=== PATIENT | male | born 1935 | race Caucasian/White ===

== ENCOUNTER → 2016-04-21 | Outpatient (REF) | payer MEDICARE, BC ==
[~2016-04-21] MED LIST: /DOXE100CA PO; ACET-653 PO; ACET500C PO; ADVA115A INH; ADVIR INH; AMLO-59 PO; AMLO10TA OR; AMLO10TA2 PO; AMLO5TAB2 PO; APRESOLINE PO; ATOR1TAB21 PO; AUGM500T34 PO; AVEL1TAB PO; BACITAB3 PO; BENA25TA4 PO; BISO10TA2 OR; BISO5TAB5 PO; BREO1INH3 INH; BUDE3CAP PO; CEFT500T3 PO; CELE20TA OR; CIPR500T4 OR; CLOP75TA2 PO; CODE30TA3 PO; DIPH25CA PO; DIPH50CA PO; DOXE50CA PO; DUONSOL NEB; ECOT81TA PO; FLON1SPR; HYDR-4266 PO; HYDR-4267 PO; HYDR1CR TOP; HYDR50TA8 OR; INCR1INH INH; INFL10VL IV; INSUDET SC; IPRASOL4 INH; LEVA250T PO; LUNE2TAB OR; LUNE3TAB48 PO; MIRA255PW PO; MIRA33504 PO; MUCI600T34 PO; OMEP40CA2 PO; PENTASA PO; PLAVIX PO; POLY33502 PO; POTA20TA OR; PRED10PA PO; PRED1TABL PO; PRED20TA PO; PRED20TAB PO; PRIL40CA OR; PROT1TAB2 PO; PULM1SUS INH; Probiotic PO; RAMI2.5C PO; ROZE8TAB9 PO; SENO8.6T10 PO; SIMV20TA2 OR; SPIR25TA2 PO; SPIRIVA INH; TOBROPO OD; TYLE500T53 OR; VENTAER IN; VENTAER INH; VICO5TAB PO; VITMTA PO; ZOLO50TA PO; [UNRECOGNIZED DRUG - CODE] TOP
[2016-04-21 12:25] LABS: CALCIUM LEVEL 9.1 MG/DL (8.8-10.2); CREATININE FOR GFR 1.33 MG/DL (0.70-1.30); GLOMERULAR FILTRATION RATE 55.4 (>42); POTASSIUM SERUM 3.7 MEQ/L (3.5-5.1)
== END ==
LOC: M SFHCCLAY 08:28
PROVIDERS: ATTEND Family Medicine
DX: I10 Essential (primary) hypertension (principal); E78.00 Pure hypercholesterolemia, unspecified; I25.10 Atherosclerotic heart disease of native coronary artery without angina pectoris

== ENCOUNTER → 2016-09-10 | Outpatient (CLI) | payer MEDICARE, BC ==
[~2016-09-10] MED LIST changes: +E-Z-PAQUE 96% w/w SUSP 176GM BTL As Ordered ONE
--- NOTE | 2016-09-10 16:55 | REP ---
SMALL BOWEL FOLLOW-THROUGH: The procedure was performed under the direct supervision of Dr. Young. The images were reviewed with Dr. Young. The customer care assistant film shows no organomegaly or pathological masses. The intestinal gas pattern is nonspecific. There are vascular calcifications identified. Liquid barium was administered and the barium column was followed through the small bowel to the level of the terminal ileum. Small bowel transit time is approximately 65 minutes. There are thickened post-bulbar duodenal folds. This may represent duodenitis. In the terminal ileum there is eccentric mucosal thickening. The terminal ileum appears to stand alone. These findings may represent Crohn's disease. The remainder of the small is unremarkable. IMPRESSION: There are thickened post-bulbar duodenal folds which may represent duodenitis. In the terminal ileum there is eccentric mucosal thickening. The terminal ileum stands alone. These findings may represent Crohn's disease. 2 minutes and 30 seconds of fluoroscopy time was utilized for this procedure. Reviewed by DANIELA Malhotra 09/13/2016 05:03 PEdited and Signed by Tristen Young MD 09/13/2016 06:53 P
== END ==
LOC: M RAD 08:58
PROVIDERS: ATTEND Internal Medicine Gastroenterology
DX: K50.00 Crohn's disease of small intestine without complications (principal)

== ENCOUNTER → 2016-10-26 | Outpatient (REF) | payer MEDICARE, BC ==
[~2016-10-26] MED LIST changes: +AMLO-140 PO; -AMLO-59 PO; -AVEL1TAB PO; +AVEL1TAB3 PO; +BACITAB PO; -BACITAB3 PO; +CENTTAB36 PO; -E-Z-PAQUE 96% w/w SUSP 176GM BTL As Ordered ONE; +HYDR-3910 PO; +HYDR-3911 PO; -HYDR-4266 PO; -HYDR-4267 PO; +INSULADS INJ; +LEVA1TAB PO; -LEVA250T PO; +LUNE3TAB36 PO; -LUNE3TAB48 PO; -MUCI600T34 PO; +MUCI600T37 PO; +NORV5TAB PO; +POTA10PO PO; +PROBCAP4 PO; +REPA1TAB4 PO; +ROZE8TAB16 PO; -ROZE8TAB9 PO; +TRAD5TAB PO
[2016-10-26 18:13] LABS: ALBUMIN 3.9 GM/DL (3.2-5.2); ALBUMIN/GLOBULIN RATIO 1.22 (1.00-1.93); BILIRUBIN,TOTAL 1.2 MG/DL (0.2-1.0); CALCIUM LEVEL 9.2 MG/DL (8.8-10.2); CREATININE FOR GFR 1.5 MG/DL (0.70-1.30); GLOMERULAR FILTRATION RATE 48.2 (>42); POTASSIUM SERUM 3.7 MEQ/L (3.5-5.1); TOTAL PROTEIN 7.1 GM/DL (6.4-8.2)
== END ==
LOC: M SFHCCLAY 09:36
PROVIDERS: ATTEND Nurse Practitioner
DX: I50.9 Heart failure, unspecified (principal); E11.9 Type 2 diabetes mellitus without complications
CPT/HCPCS: 80053; 80061; 83036; 83880; G0463

== ENCOUNTER 2016-11-10 15:57 | Emergency (ER) | payer MEDICARE, BC ==
[~2016-11-10] VITALS: Ht 180.3 cm; Wt 78.6 kg
[~2016-11-10 15:57] MED LIST changes: -CENTTAB36 PO; -INSULADS INJ; -NORV5TAB PO; -POTA10PO PO; -PROBCAP4 PO; -REPA1TAB4 PO; -TRAD5TAB PO
[2016-11-10] MEDS ORDERED: ACET-653 PO (16:15)
[2016-11-10] MEDS ORDERED: NORV5TAB PO (16:15)
[2016-11-10] MEDS ORDERED: BREO1INH3 INH (16:15)
[2016-11-10] MEDS ORDERED: PROBCAP4 PO (16:15)
[2016-11-10] MEDS ORDERED: CENTTAB36 PO (16:15)
[2016-11-10] MEDS ORDERED: INSULADS INJ (16:15)
[2016-11-10] MEDS ORDERED: POTA10PO PO (16:21)
[2016-11-10] MEDS ORDERED: REPA1TAB4 PO (16:21)
[2016-11-10] MEDS ORDERED: TRAD5TAB PO (16:21)
[2016-11-10 17:19] VITALS: BP 148/80
== END 2016-11-10 17:20 | disposition home or self-care (01) ==
LOC: M ED 15:57
DX: H11.32 Conjunctival hemorrhage, left eye (principal); I25.10 Atherosclerotic heart disease of native coronary artery without angina pectoris; I25.2 Old myocardial infarction; I12.9 Hypertensive chronic kidney disease with stage 1 through stage 4 chronic kidney disease, or unspecified chronic kidney disease; N18.9 Chronic kidney disease, unspecified; E11.9 Type 2 diabetes mellitus without complications; Z98.61 Coronary angioplasty status; Z79.02 Long term (current) use of antithrombotics/antiplatelets

== ENCOUNTER → 2016-11-25 | Outpatient (CLI) | payer MEDICARE, BC ==
[~2016-11-25] MED LIST changes: +CENTTAB36 PO; +INSULADS INJ; +NORV5TAB PO; +POTA10PO PO; +PROBCAP4 PO; +REPA1TAB4 PO; +TRAD5TAB PO
--- NOTE | 2016-11-25 14:07 | REP ---
KUB, TWO VIEWS: HISTORY: Fecal impaction. A small amount of air is present in small and large intestine. There are no air fluid levels or dilated loops of intestine. There is no pneumoperitoneum. A moderate amount of stool is present in the colon. IMPRESSION: 1. Nonspecific bowel gas pattern. 2. There is a moderate amount of stool in the colon.
== END ==
LOC: M CLY 13:11
PROVIDERS: ATTEND Internal Medicine Gastroenterology
DX: K56.41 Fecal impaction (principal)

== ENCOUNTER → 2017-02-23 | Outpatient (REF) | payer MEDICARE, BC | LOC: M LAB REF 15:13 | PROVIDERS: ATTEND Nurse Practitioner Family | DX: L08.9 Local infection of the skin and subcutaneous tissue, unspecified (principal) ==

== ENCOUNTER → 2017-11-07 | Outpatient (REF) | payer MEDICARE, BC ==
[2017-11-07 18:01] LABS: ALBUMIN 3.7 GM/DL (3.2-5.2); ANION GAP 10 MEQ/L (8-16); BLOOD UREA NITROGEN 27 MG/DL (7-18); CALCIUM LEVEL 9.8 MG/DL (8.8-10.2); CARBON DIOXIDE LEVEL 23 MEQ/L (21-32); CHLORIDE LEVEL 107 MEQ/L (98-107); GLOMERULAR FILTRATION RATE 36.5 (>35); GLUCOSE, FASTING 171 MG/DL (70-100); PHOSPHORUS LEVEL 3.3 MG/DL (2.5-4.9); POTASSIUM SERUM 4.5 MEQ/L (3.5-5.1); SODIUM LEVEL 140 MEQ/L (136-145)
== END ==
LOC: M SFHCCLAY 12:18
DX: N18.3 Chronic kidney disease, stage 3 (moderate) (principal)
CPT/HCPCS: 80069

== ENCOUNTER → 2018-02-21 | Outpatient (CLI) | payer MEDICARE, BC | LOC: M SMT 12:13 | DX: R05 Cough (principal); I77.1 Stricture of artery | CPT/HCPCS: 71046 ==

== ENCOUNTER → 2018-07-28 | Outpatient (REF) | payer MEDICARE, BC ==
[~2018-07-28] MED LIST changes: -/DOXE100CA PO; +ACET300T47 PO; -AMLO5TAB2 PO; +AMLO5TAB6 PO; -CODE30TA3 PO; +DOXE1CAP8 PO; -HYDR1CR TOP; +HYDR1CRE93 TOP; +IPRA0.00 INH; -IPRASOL4 INH; -LEVA1TAB PO; +LEVA250T13 PO; -MIRA255PW PO; +POLY1POW38 PO; +POLY1POW4 PO; -POLY33502 PO; +SPIR-10 PO; -SPIR25TA2 PO
== END ==
LOC: M SFHCCLAY 14:04
PROVIDERS: ATTEND Family Medicine
DX: K50.10 Crohn's disease of large intestine without complications (principal); Z78.9 Other specified health status

== ENCOUNTER → 2018-07-31 | Outpatient (REF) | payer MEDICARE, BC | LOC: M SFHCCLAY 13:35 | PROVIDERS: ATTEND Family Medicine | DX: Z78.9 Other specified health status (principal) ==

== ENCOUNTER → 2018-08-04 | Outpatient (CLI) | payer MEDICARE, BC ==
[~2018-08-04] MED LIST changes: +GASTROGRAFIN SOLUTION 30ML (Q9963) As Ordered ONE
--- NOTE | 2018-08-04 17:22 | REP ---
HISTORY: Crohn's disease. COMPARISON: 02/24/2012, also without contrast. The lack of intravenous contrast decreases the sensitivity of the exam. There are chronic lung base changes, status quo. There are no pleural or pericardial effusions. There are gravel-like choleliths which represent a change from the prior exam. Limited evaluation of the liver and spleen show no gross abnormalities. Portal venous gas seen previously has abated. The pancreas, adrenal glands and kidneys are unchanged. Multiple left renal cysts of various sizes and densities are seen, status quo. The hyperdense cyst seen arising from the interpolar region of the left kidney projecting posteriorly has, however, increased in size. Its density is unchanged. It is assessed only in a limited fashion on this noncontrast enhanced exam. The abdominal aorta and periaortic regions are essentially unchanged. Calcific atherosclerotic change is again seen in the abdominal aorta and iliac arteries with bilateral common iliac arterial ectasia, status quo. There is no intra-abdominal mass or adenopathy. There is no free fluid or free air. The bowel loops and their mesenteries are within normal limits. There is no evidence of abnormal bowel wall thickening. CT PELVIS: The bowel loops and their mesenteries are within normal limits. There is colonic diverticulosis. There is no free fluid or free air. There is no pelvic mass or adenopathy. There is corpora amylacea. Bone window technique throughout the exam shows chronic degenerative changes, status quo. IMPRESSION: Chronic changes as described above. There is no evidence of acute intraabdominal or intrapelvic disease. Consider contrast enhanced examination for further evaluation of the left renal cyst. Electronically Signed by [place] DO 08/07/2018 09:48 A
== END ==
LOC: M RAD 13:45
PROVIDERS: ATTEND Family Medicine
DX: N28.1 Cyst of kidney, acquired (principal)
CPT/HCPCS: 74176; Q9963

== ENCOUNTER → 2018-08-23 | Outpatient (CLI) | payer MEDICARE, BC ==
[~2018-08-23] MED LIST changes: -GASTROGRAFIN SOLUTION 30ML (Q9963) As Ordered ONE; +ISOVUE-370 76% 100ML VIAL (Q9967) As Ordered ONE
--- NOTE | 2018-08-23 15:11 | REP ---
Clinical: Renal cyst. Comparison: 19. Technique: Axial contrast enhanced images of the abdomen and pelvis using 75 ml Isovue 370 intravenous contrast material with precontrast, arterial phase, and delayed phase images of the abdomen. Coronal and sagittal re-formations obtained. Findings: Evaluation of the urinary tract system demonstrates few small bilateral nonobstructing calculi 2 mm in the right kidney and 3 mm in left kidney. Few small simple right renal cysts are identified measuring up to 1.8 cm while at least 15 simple and complex benign cysts are identified involving the left kidney measuring up to 5.0 cm. No acute perinephric stranding or hydroureteronephrosis. Bilateral ureters and bladder appear normal. Prostate gland is mildly enlarged and demonstrates parenchymal calcifications. Liver, spleen, atrophic pancreas, and bilateral adrenal glands are normal. Very minimal amount of layering gravel noted in the gallbladder without acute cholecystitis. The enteric system is without obstruction or acute inflammatory process. Scattered colonic and sigmoid diverticulosis noted without acute diverticulitis. Pelvis demonstrates relatively normal bladder with mildly enlarged prostate gland having parenchymal calcifications. Atherosclerotic changes to the aorta and vasculature without aneurysm. Musculoskeletal structures demonstrate degenerative changes without focal osseous abnormality. Impression: 1. Bilateral simple and complex renal cysts (left greater than right) along with few scattered small bilateral nonobstructing intrarenal calculi. 2. Cholelithiasis. 3. Few scattered sigmoid diverticula without acute diverticulitis. 4. Atherosclerotic disease. 5. Enlarged prostate gland with parenchymal calcifications. Electronically Signed by Manuel Sung MD 08/23/2018 03:02 P
== END ==
LOC: M RAD 09:52
PROVIDERS: ATTEND Urology
DX: N28.1 Cyst of kidney, acquired (principal); K80.20 Calculus of gallbladder without cholecystitis without obstruction; I25.9 Chronic ischemic heart disease, unspecified; N40.0 Benign prostatic hyperplasia without lower urinary tract symptoms
CPT/HCPCS: 74178; Q9967

== ENCOUNTER → 2019-02-08 | Outpatient (REF) | payer MEDICARE, BC ==
[~2019-02-08] MED LIST changes: -BISO5TAB5 PO; +BISO5TAB9 PO; -DIPH25CA PO; +DIPH25CA32 PO; -ISOVUE-370 76% 100ML VIAL (Q9967) As Ordered ONE
[2019-02-08 17:29] LABS: ALBUMIN 3.8 GM/DL (3.2-5.2); BILIRUBIN,TOTAL 1.4 MG/DL (0.2-1.0); CALCIUM LEVEL 9.8 MG/DL (8.8-10.2); CHOLESTEROL RISK RATIO 3.509 (<5); CREATININE FOR GFR 1.85 MG/DL (0.70-1.30); GLOMERULAR FILTRATION RATE 37.5 (>35); POTASSIUM SERUM 4.6 MEQ/L (3.5-5.1); TOTAL PROTEIN 6.4 GM/DL (6.4-8.2)
[2019-02-12 13:33] LABS: MAU/CREAT RATIO 27.6 MCG/MG (0.0-30.0)
== END ==
LOC: M LABDRAWC 16:14
PROVIDERS: ATTEND Nurse Practitioner Family
DX: E11.22 Type 2 diabetes mellitus with diabetic chronic kidney disease (principal); E78.00 Pure hypercholesterolemia, unspecified

== ENCOUNTER → 2019-04-25 | Outpatient (CLI) | payer MEDICARE, BC ==
[~2019-04-25] MED LIST changes: +BISO5TAB14 PO; -BISO5TAB9 PO
--- NOTE | 2019-04-25 14:19 | REP ---
Right knee five views : There is no fracture or dislocation. Mineralization and joint spaces are normal. There are no calcifications or foreign bodies. There is no effusion. There is calcified vascular atheroma in the popliteal artery. Impression: Essentially negative right knee . Electronically Signed by Earnest Bowser MD 04/25/2019 02:11 P
== END ==
LOC: M CLY 13:09
PROVIDERS: ATTEND Family Medicine
DX: M25.561 Pain in right knee (principal); N18.3 Chronic kidney disease, stage 3 (moderate); R35.0 Frequency of micturition; R25.1 Tremor, unspecified
CPT/HCPCS: 73564; 80048; 81015; 82390; 84439; 84443; 84481; 87086; G0463

== ENCOUNTER → 2019-04-25 | Outpatient (REF) | payer MEDICARE, BC ==
[2019-04-25 16:46] LABS: BACTERIA, URINE AUTO NEGATIVE (NEGATIVE); MUCUS, URINE SMALL (NEGATIVE); RBC, URINE AUTO 1 /HPF (0-3); SQUAMOUS EPITHELIAL CELL UR AU 1 /HPF (0-6); TRANSITIONAL EPITHELIAL AUTO <1 /HPF; WBC, URINE AUTO 6 /HPF (0-3)
[2019-04-25 17:03] LABS: CREATININE FOR GFR 1.63 MG/DL (0.70-1.30); FREE T3 2.2 PG/ML (2.2-4.0); FREE T4 1.03 NG/DL (0.76-1.46); GLOMERULAR FILTRATION RATE 43.4 (>35); POTASSIUM SERUM 4.2 MEQ/L (3.5-5.1); THYROID STIMULATING HORMONE 1.53 uIU/ML (0.358-3.740)
== END ==
LOC: M LABSMT 11:26
PROVIDERS: ATTEND Specialist
DX: N18.3 Chronic kidney disease, stage 3 (moderate) (principal); R35.0 Frequency of micturition; R25.1 Tremor, unspecified

== ENCOUNTER → 2019-04-26 | Outpatient (CLI) | payer MEDICARE, BC ==
--- NOTE | 2019-04-26 15:04 | REP ---
Renal ultrasound for stage III chronic renal disease. Comparison is 11/07/2015. The right kidney measures 9.0 x 4.8 x 4.7 cm. Left kidney measures 8.6 x 5.8 x 4.4 cm. Both kidneys are atrophic size and are slightly smaller than on the comparison study. Renal cortical echogenicity is increased bilaterally compatible with chronic medical renal disease. There is no hydronephrosis on the right on the left. There are no renal calculi on the left on the right. There are no solid masses on the left on the right. There are too small right renal cysts at the lower pole, one posteriorly measuring 0.8 cm and the other at the lower pole inferiorly measuring 1.0 cm. There are innumerable left renal cysts,, increased in number from the prior study, compatible with chronic renal disease. The largest left renal cyst measures 4.3 cm. The Bladder: No bladder wall nodules or masses are identified. Impression: The kidneys are atrophic size bilaterally. There are bilateral renal cysts as described. There are no renal calculi. There is no hydronephrosis. No solid renal masses. Electronically Signed by Earnest Bowser MD 04/26/2019 02:56 P
== END ==
LOC: M RAD 12:55
PROVIDERS: ATTEND Specialist
DX: Q61.02 Congenital multiple renal cysts (principal); N18.3 Chronic kidney disease, stage 3 (moderate)

== ENCOUNTER → 2019-04-26 | Outpatient (CLI) | payer MEDICARE, BC ==
--- NOTE | 2019-04-26 15:20 | REP ---
Bilateral lower extremity arterial duplex ultrasound: Right upper extremity: Brachial artery peak systole: 122 mmHg. Dorsalis pedis peak systole: 132 mmHg. MEDICAL ADVISOR peak systole: 128 mmHg. TONO: 1.1. Peak Systolic Phasicity Velocity SLEEPER CUTTER 88.5 triphasic Profunda 92.4 triphasic SFA prox 55.9 triphasic SFA mid 95.9 triphasic SFA dist 45 triphasic Pop 37.8 biphasic MARIAH prox 50.8 biphasic Tib/P tr 42.8 triphasic MEDICAL ADVISOR pr 51.7 monophasic MEDICAL ADVISOR dst 50.4 monophasic MARIAH dst 33.0 monophasic Left lower extremity: Brachial peak systole: 120 mmHg. Dorsalis pedis peak systole: 140 mmHg. MEDICAL ADVISOR peak systole: 122 mmHg. TONO: 1.1. Peak Systolic Phasicity Velocity SLEEPER CUTTER 104 biphasic Profunda 102 monophasic SFA prox 50.2 triphasic SFA mid 112 triphasic SFA dist 68.7 triphasic Pop 134.0 triphasic MARIAH prox 235 monophasic Tib/P tr 44.7 triphasic MEDICAL ADVISOR pr 41.7 monophasic MEDICAL ADVISOR dst 41.1 monophasic MARIAH dst 48.6 monophasic The there is moderate atheromatous plaque bilaterally. Right: The distal SFA demonstrates 5:1 stenosis. There is monophasic flow in the proximal and distal MEDICAL ADVISOR and in the distal MARIAH. Left: There are patent stents in the mid and distal SFA. There is 2:1 stenosis in the popliteal and proximal MEDICAL ADVISOR. There is monophasic flow in the proximal and distal MEDICAL ADVISOR and the distal MARIAH. Electronically Signed by Earnest Bowser MD 04/26/2019 03:12 P
== END ==
LOC: M RAD 12:49
PROVIDERS: ATTEND Surgery
DX: I73.9 Peripheral vascular disease, unspecified (principal); Q61.02 Congenital multiple renal cysts; N18.3 Chronic kidney disease, stage 3 (moderate)

== ENCOUNTER → 2019-05-03 | Outpatient (REF) | payer MEDICARE, BC ==
[2019-05-03 20:55] LABS: BACTERIA, URINE AUTO NEGATIVE (NEGATIVE); RBC, URINE AUTO 2 /HPF (0-3); SQUAMOUS EPITHELIAL CELL UR AU 0 /HPF (0-6); WBC, URINE AUTO 0 /HPF (0-3)
== END ==
LOC: M SMT 17:22
PROVIDERS: ATTEND Specialist
DX: R82.81 Pyuria (principal); R35.0 Frequency of micturition

== ENCOUNTER → 2019-07-12 | Outpatient (CLI) | payer MEDICARE, BC ==
--- NOTE | 2019-07-12 17:59 | REP ---
Lumbar spine series: Five views. History: Right lower back pain. Findings: Coronary artery stent material is visible. Vascular calcification is present. There is mild gaseous distension of the transverse colon. Air and stool is seen in the ascending and descending colon. Lumbar vertebral body heights are preserved. Alignment is normal. There is no evidence of spondylolysis or spondylolisthesis. There is degenerative disc disease with narrowing and anterior osteophyte formation at L4-5, L3-4, and L2-3. There is a Schmorl's node in the superior endplate of L3. No bony destructive lesion is seen. Psoas margins are symmetric. Sacrum and SI joints are unremarkable. Impression Degenerative spondylosis changes. Vascular calcification. No acute bony abnormality. Electronically Signed by Tristen Young MD 07/12/2019 07:18 P
== END ==
LOC: M CLY 14:40
PROVIDERS: ATTEND Physician Assistant
DX: M51.36 Other intervertebral disc degeneration, lumbar region (principal); M54.5 Low back pain
CPT/HCPCS: 72110; G0463

== ENCOUNTER → 2019-09-13 | Outpatient (REF) | payer MEDICARE, BC ==
[~2019-09-13] MED LIST changes: +ALLO100T PO; +BELS1TAB2 PO; +COLA100C5 PO; +FLAG500T PO; +LANTINJ4 SC; +MIRA3350 PO; +RA M1.74 PO; +SITA50TAB PO
== END ==
LOC: M LAB REF 10:38
PROVIDERS: ATTEND Dermatology
DX: C44.310 Basal cell carcinoma of skin of unspecified parts of face (principal); L90.5 Scar conditions and fibrosis of skin

== ENCOUNTER → 2019-09-25 | Outpatient (REF) | payer MEDICARE, BC ==
[2019-09-25 16:30] LABS: CHOLESTEROL RISK RATIO 3.254 (<5); FREE T4 1.03 NG/DL (0.76-1.46); THYROID STIMULATING HORMONE 1.41 uIU/ML (0.358-3.740)
== END ==
LOC: M SFHCCLAY 11:31
PROVIDERS: ATTEND Family Medicine
DX: E11.9 Type 2 diabetes mellitus without complications (principal)

== ENCOUNTER 2019-09-29 13:55 | Emergency (ER) | payer MEDICARE, BC ==
[~2019-09-29] VITALS: Ht 180.3 cm; Wt 83.3 kg
[~2019-09-29 13:55] MED LIST changes: -ALLO100T PO; -BELS1TAB2 PO; -COLA100C5 PO; -FLAG500T PO; -LANTINJ4 SC; -MIRA3350 PO; -RA M1.74 PO; -SITA50TAB PO
[2019-09-29 13:56] VITALS: BP 143/71
[2019-09-29 14:45] LABS: BASO % 0.2 % (0.0-1.0); EOS # 0.1 10^3/uL (0.0-0.5); EOS % 0.9 % (0.0-3.0); HEMATOCRIT 40.4 % (42.0-52.0); HEMOGLOBIN 13.6 g/dl (13.5-17.5); LYMPH # 1.5 10^3/uL (1.5-5.0); LYMPH % 10.5 % (24.0-44.0); MEAN CORPUSCULAR HEMOGLOBIN 33.1 pg (27.0-33.0); MEAN CORPUSCULAR HGB CONC 33.7 g/dl (32.0-36.5); MEAN CORPUSCULAR VOLUME 98.3 fl (80.0-96.0); MONO # 1.4 10^3/uL (0.0-0.8); MONO % 9.9 % (0.0-5.0); NEUTROPHILS # 10.9 10^3/uL (1.5-8.5); NEUTROPHILS % 77.4 % (36.0-66.0); PLATELET COUNT, AUTOMATED 238 10^3/uL (150-450); RED BLOOD COUNT 4.11 10^6/uL (4.30-6.10); WHITE BLOOD COUNT 14.1 10^3/uL (4.0-10.0)
[2019-09-29] MEDS ORDERED: ISOVUE-370 76% 100ML VIAL As Ordered ONE (15:04)
[2019-09-29 15:13] LABS: ALBUMIN 3.9 GM/DL (3.2-5.2); BILIRUBIN,DIRECT 0.3 MG/DL (0.0-0.2); BILIRUBIN,TOTAL 1.7 MG/DL (0.2-1.0); TOTAL PROTEIN 6.8 GM/DL (6.4-8.2)
[2019-09-29] MEDS ORDERED: NS 1,000 ML IV ONE (15:30)
--- NOTE | 2019-09-29 15:47 | REP ---
Clinical: Lower abdominal pain. Constipation. Technique: Axial contrast enhanced images from the lung bases to the pubic symphysis using 100 ml Isovue 370 intravenous contrast material with coronal and sagittal re-formations. Comparison: 08/23/2018. Findings: Constipation and fecal impaction at the rectum which is distended to approximately 8.2 cm diameter noted along with fluid-filled loops of small large bowel raising the possibility of associated enterocolitis. Scattered colonic diverticula noted without acute diverticulitis. Liver, spleen, pancreas, and bilateral adrenal glands are normal. The kidneys demonstrate stable cysts and 3 mm nonobstructing left renal calculus. No acute perinephric stranding or hydroureteronephrosis. Cholelithiasis noted without acute cholecystitis. Pelvis demonstrates Clark catheter in collapsed bladder and coarse prostatic calcifications. Atherosclerotic changes to the aorta and vasculature noted without aneurysm or dissection. No ascites. No free air. No adenopathy. Musculoskeletal structures demonstrate age-related degenerative changes. Lung bases demonstrate chronic changes without acute process. Impression: 1. Constipation with fecal impaction at the rectum distended to 8.2 cm. 2. Possible mild enterocolitis. 3. Cholelithiasis. 4. Chronic renal cysts and 3 mm nonobstructing left renal calculus. Electronically Signed by Manuel Sung MD 09/29/2019 03:38 P
[2019-09-29] MEDS ORDERED: FLEET OIL RETENTION ENEMA PR ONE (16:15)
[2019-09-29] MEDS ORDERED: LANTINJ4 SC (16:26)
[2019-09-29] MEDS ORDERED: ALLO100T PO (16:26)
[2019-09-29] MEDS ORDERED: SPIR-10 PO (16:26)
[2019-09-29] MEDS ORDERED: SITA50TAB PO (16:26)
[2019-09-29] MEDS ORDERED: BELS1TAB2 PO (16:26)
[2019-09-29] MEDS ORDERED: MIRA3350 PO (18:21)
[2019-09-29] MEDS ORDERED: RA M1.74 PO (18:21)
[2019-09-29] MEDS ORDERED: FLAG500T PO (18:21)
[2019-09-29] MEDS ORDERED: COLA100C5 PO (18:21)
== END 2019-09-29 19:30 | disposition home or self-care (01) ==
LOC: M ED 13:55
DX: K52.9 Noninfective gastroenteritis and colitis, unspecified (principal); K59.00 Constipation, unspecified; K56.49 Other impaction of intestine; E11.9 Type 2 diabetes mellitus without complications; I10 Essential (primary) hypertension; N18.9 Chronic kidney disease, unspecified; I50.9 Heart failure, unspecified; E78.5 Hyperlipidemia, unspecified; F41.9 Anxiety disorder, unspecified; K21.9 Gastro-esophageal reflux disease without esophagitis; K50.90 Crohn's disease, unspecified, without complications; Z95.5 Presence of coronary angioplasty implant and graft; Z79.01 Long term (current) use of anticoagulants; Z88.1 Allergy status to other antibiotic agents
CPT/HCPCS: 51702; 74177; 80047; 80076; 81001; 83690; 85025; 96360; 96361; 99284; Q9967

== ENCOUNTER → 2019-10-02 | Outpatient (CLI) | payer MEDICARE, BC ==
[~2019-10-02] MED LIST changes: +ALLO100T PO; +BELS1TAB2 PO; +COLA100C5 PO; +FLAG500T PO; +LANTINJ4 SC; +MIRA3350 PO; +RA M1.74 PO; +SITA50TAB PO
--- NOTE | 2019-10-02 14:29 | REP ---
THREE-PHASE BONE SCAN: HISTORY: Rule out compression fracture. Comparison lumbar spine radiographs July 12, 2019. Comparison CT study September 21 10/22/2019. TECHNIQUE: 21.4 mCi technetium 99m MDP is injected and standard three-phase imaging is acquired focused on the mid lumbar spine. SCINTIGRAPHIC FINDINGS: Anterior and posterior flow study is normal. Blood pool images demonstrate slightly increased uptake in the mid lumbar spine and horizontal distribution. Delayed scan images demonstrate a horizontal band-like area of increased uptake in the mid lumbar spine most pronounced on the posterior views along the superior endplate of the L3 vertebral body. This aligns with the collapse of the superior end plate seen on sagittal and coronal multiplanar re-formation images from CT study September 29, 2019. The scintigraphic findings are compatible with an acute or subacute osteoporotic compression fracture deformity. There is also a focus of increased uptake in the right posterior 11th rib consistent with healing right posterior 11th rib fracture. There is mild degenerative uptake at the T11-12 level. IMPRESSION: Findings consistent with acute/subacute wedge compression deformities superior endplate of L3. Healing right posterior 11th rib fracture. Electronically Signed by Tristen Young MD 10/02/2019 04:02 P
== END ==
LOC: M RAD 09:43
PROVIDERS: ATTEND Orthopaedic Surgery
DX: R93.7 Abnormal findings on diagnostic imaging of other parts of musculoskeletal system (principal); M54.5 Low back pain
CPT/HCPCS: 78315; A9503

== ENCOUNTER → 2019-10-09 | Outpatient (REF) | payer MEDICARE, BC ==
[~2019-10-09] MED LIST changes: +AMLO1TAB24 PO; -AMLO5TAB6 PO
[2019-10-10 12:36] LABS: HEMATOCRIT 38.4 % (42.0-52.0); HEMOGLOBIN 12.6 g/dl (13.5-17.5); MEAN CORPUSCULAR HEMOGLOBIN 32.5 pg (27.0-33.0); MEAN CORPUSCULAR HGB CONC 32.8 g/dl (32.0-36.5); PLATELET COUNT, AUTOMATED 277 10^3/uL (150-450); RED BLOOD COUNT 3.88 10^6/uL (4.30-6.10); WHITE BLOOD COUNT 9.3 10^3/uL (4.0-10.0)
[2019-10-10 12:38] LABS: C REACTIVE PROTEIN QUANTITATIV 1.03 MG/DL (0.00-0.30)
[2019-10-10 13:55] LABS: LYMPHOCYTES 13 % (16-44); MONOCYTES 4 % (0-5); NEUTROPHILS 83 % (28-66); PLATELET ESTIMATE NORMAL (NORMAL)
[2019-10-10 14:44] LABS: ERYTHROCYTE SEDIMENTATION RATE 45 mm/hr (0-20)
[2019-10-11 13:58] LABS: ALBUMIN 3.76 GM/DL (3.29-5.55); ALBUMIN % 62.6 % (55.8-66.1); ALPHA-1-GLOBULIN % 6.5 % (2.9-4.9); ALPHA-1-GLOBULINS 0.39 GM/DL (0.17-0.41); ALPHA-2-GLOBULINS % 13.4 % (7.1-11.8); BETA-1-GLOBULINS 0.43 GM/DL (0.28-0.60); BETA-1-GLOBULINS % 7.1 % (4.7-7.2); BETA-2-GLOBULINS 0.29 GM/DL (0.19-0.55); BETA-2-GLOBULINS % 4.9 % (3.2-6.5); GAMMA GLOBULIN % 5.5 % (11.1-18.8); GAMMA GLOBULINS 0.33 GM/DL (0.65-1.58)
== END ==
LOC: M LABDRAWC 11:47
PROVIDERS: ATTEND Orthopaedic Surgery
DX: S32.030D Wedge compression fracture of third lumbar vertebra, subsequent encounter for fracture with routine healing (principal); X58.XXXD Exposure to other specified factors, subsequent encounter

== ENCOUNTER → 2019-10-15 | Outpatient (REF) | payer MEDICARE, BC | LOC: M SFHCCLAY 09:02 | PROVIDERS: ATTEND Family Medicine | DX: D80.1 Nonfamilial hypogammaglobulinemia (principal) ==

== ENCOUNTER → 2019-11-08 | Outpatient (CLI) | payer MEDICARE, BC ==
--- NOTE | 2019-12-28 09:53 | REP ---
RENAL ULTRASOUND: HISTORY: Bilateral renal cysts. FINDINGS: Real time sonographic evaluation of the kidneys is performed. The kidneys are normal in size and echotexture, right kidney measuring 9.6 x 6.5 x 5.6 cm and the left kidney measuring 11.1 x 5.6 x 5.8 cm. There is no hydronephrosis bilaterally. Multiple bilateral renal cysts are present. The is a cyst in the right upper pole measuring 2.4 cm maximally and in the mid-aspect measuring 1.6 cm. There is a dominant cyst in the left upper pole, 4.4 cm in maximum diameter. There is an adjacent 3.5 cm cyst. There are several smaller cysts more inferiorly in the left kidney. The urinary bladder is not well distended and not well evaluated. IMPRESSION: Multiple bilateral renal cysts, as discussed above. MTDD
--- NOTE | 2019-12-28 09:54 | REP ---
BILATERAL LOWER EXTREMITY DUPLEX DOPPLER ARTERIAL ULTRASOUND HISTORY: Peripheral vascular disease, left leg arterial stents. TECHNIQUE: Real-time ultrasound evaluation and duplex Doppler interrogation of bilateral lower extremity arterial systems is performed. FINDINGS: TONO bilaterally is 0.9. There is [id number] diffuse plaquing bilaterally. There is 2:1 stenosis in the right superficial femoral artery in the mid aspect. There is mild stenosis in the proximal to mid left SFA. There is a patent stent in the mid to distal left SFA. There are diffuse biphasic and triphasic waveforms bilaterally with monophasic waveforms in the distal anterior tibial arteries and distal left posterior tibial artery. VELOCITY CHART PSV RIGHT (cm/s) PSV LEFT (cm/s) Femoral artery 71.8 96.6 Profunda 102.0 74.6 Proximal SFA 62.6 65.6 Mid-SFA 135.7 116.5 Distal SFA 109.2 104.1 Popliteal 35.6 76.8 Proximal MARIAH 36.1 45.9 Tibioperoneal trunk 36.4 64.0 Proximal CUSTOMS PORT DIRECTOR 35.1 79.6 Distal CUSTOMS PORT DIRECTOR 22.0 26.4 Distal MARIAH 8.6 32.2 MTDD
== END ==
LOC: M RAD 12:30
PROVIDERS: ATTEND Specialist
DX: N28.1 Cyst of kidney, acquired (principal); Z95.820 Peripheral vascular angioplasty status with implants and grafts; M79.605 Pain in left leg; R09.89 Other specified symptoms and signs involving the circulatory and respiratory systems

== ENCOUNTER → 2019-11-12 | Outpatient (REF) | payer MEDICARE, BC ==
[2020-01-08 02:37] LABS: CREATININE FOR GFR 1.59 MG/DL (0.70-1.30); GLOMERULAR FILTRATION RATE 44.6 (>35)
== END ==
LOC: M LABDRAWC 09:41
PROVIDERS: ATTEND Orthopaedic Surgery
DX: S32.030D Wedge compression fracture of third lumbar vertebra, subsequent encounter for fracture with routine healing (principal); W18.30XD Fall on same level, unspecified, subsequent encounter; Y92.9 Unspecified place or not applicable

== ENCOUNTER → 2019-11-20 | Emergency (ER) | payer OTHER, MEDICARE, BC ==
[~2019-11-20] MED LIST changes: +ISOVUE-370 76% 100ML VIAL As Ordered ONE
[2019-11-24 18:48] LABS: BLOOD UREA NITROGEN 24 MG/DL (7-18); CALCIUM LEVEL 9.6 MG/DL (8.8-10.2); CARBON DIOXIDE LEVEL 25 MEQ/L (21-32); CHLORIDE LEVEL 107 MEQ/L (98-107); CK-MB VALUE MASS 5.7 NG/ML (<3.6); CPK CREATINE PHOSPHOKINASE 187 U/L (39-308); CREATININE FOR GFR 1.55 MG/DL (0.70-1.30); GLOMERULAR FILTRATION RATE 45.9 (>35); GLUCOSE, FASTING 146 MG/DL (70-100); MB/CK RELATIVE INDEX 3.05 (< OR =4); POTASSIUM SERUM 4.3 MEQ/L (3.5-5.1); SODIUM LEVEL 140 MEQ/L (136-145); TROPONIN I < 0.02 NG/ML (< 0.10)
--- NOTE | 2019-12-12 15:54 | ECGEPIP ---
[facility] - ED Test Date: 2019-11-20 Pat Name: FRANSISCA HOOVER Department: Room: - Gender: Male Pump Attendant: alda : 1935 Requested By: EMERGENCY ROOM Order Number: [id number] Reading MD: Fabiola Marlow Measurements Intervals [place] Rate: 78 P: 91 [place]: 179 QRS: 27 QRSD: 118 T: 29 QT: 402 QTc: 459 Interpretive Statements SINUS RHYTHM MODERATE INTRAVENTRICULAR CONDUCTION DELAY NONSPECIFIC ST & T-WAVE ABNORMALITY BORDERLINE ECG SEE SCANNED DOWNTIME REPORT
[2019-12-31 08:34] LABS: HEMATOCRIT 40.4 % (42.0-52.0); HEMOGLOBIN 13.9 g/dl (13.5-17.5); MEAN CORPUSCULAR HEMOGLOBIN 33.7 pg (27.0-33.0); MEAN CORPUSCULAR HGB CONC 34.4 g/dl (32.0-36.5); MEAN CORPUSCULAR VOLUME 97.8 fl (80.0-96.0); PLATELET COUNT, AUTOMATED 227 10^3/uL (150-450); RED BLOOD COUNT 4.13 10^6/uL (4.30-6.10); WHITE BLOOD COUNT 12.4 10^3/uL (4.0-10.0)
[2019-12-31 09:32] LABS: INR 0.92; PARTIAL THROMBOPLASTIN TIME 26.3 SECONDS (24.2-38.5); PROTHROMBIN TIME 12.5 SECONDS (12.5-14.3)
== END | disposition home or self-care (01) ==
LOC: M ED 17:30
DX: S30.1XXA Contusion of abdominal wall, initial encounter (principal); S20.219A Contusion of unspecified front wall of thorax, initial encounter; S81.812A Laceration without foreign body, left lower leg, initial encounter; S41.012A Laceration without foreign body of left shoulder, initial encounter; S41.011A Laceration without foreign body of right shoulder, initial encounter; S51.011A Laceration without foreign body of right elbow, initial encounter; V48.0XXA Car driver injured in noncollision transport accident in nontraffic accident, initial encounter; Y92.828 Other wilderness area as the place of occurrence of the external cause; Y93.89 Activity, other specified; Y99.9 Unspecified external cause status; I25.10 Atherosclerotic heart disease of native coronary artery without angina pectoris; I50.9 Heart failure, unspecified; E11.9 Type 2 diabetes mellitus without complications; I10 Essential (primary) hypertension; J44.9 Chronic obstructive pulmonary disease, unspecified; Z95.5 Presence of coronary angioplasty implant and graft; K80.20 Calculus of gallbladder without cholecystitis without obstruction; N20.0 Calculus of kidney; N28.1 Cyst of kidney, acquired; K57.30 Diverticulosis of large intestine without perforation or abscess without bleeding; M85.80 Other specified disorders of bone density and structure, unspecified site
CPT/HCPCS: 70450; 71260; 72125; 74177; 80048; 82550; 82553; 84484; 85025; 85027; 85610; 85730; 86850; 86900; 86901; 93005; 99291; Q9967

== ENCOUNTER → 2019-12-13 | Outpatient (CLI) | payer MEDICARE, BC ==
[~2019-12-13] MED LIST changes: -ISOVUE-370 76% 100ML VIAL As Ordered ONE
--- NOTE | 2019-12-19 08:59 | EEG ---
DATE OF STUDY: 12/13/2019 REFERRING PHYSICIAN: Dr. Christophe Ho DIAGNOSIS: EEG #: HISTORY: The patient is an 84-year-old man who had increased syncopal episodes. This electroencephalogram (EEG) was done to rule out epileptic potential. He is currently taking allopurinol, Lipitor, bisoprolol, Breo Ellipta, doxepin, insulin, Protonix, Plavix, repaglinide, spironolactone, Januvia. INTERPRETATION: The patient was noted to be in awake and drowsy states during this electroencephalogram (EEG). Resting and awake background rhythm consisted of well-formed posterior dominant with anterior-posterior gradient comprising of 9 Hz alpha activity measuring 15-40 microvolts in amplitude, which was symmetric and reactive to eye opening. Attenuation of posterior dominant rhythm was seen during transition to drowsiness. Anteriorly low voltage and mixed frequency activity was noted. Stage 1 and 2 sleep was reviewed and was symmetric bilaterally. Hyperventilation and photic stimulation remained unremarkable. Electrocardiogram (EKG) revealed normal sinus rhythm. No focal, lateralizing or epileptiform abnormalities were seen. No relevant clinical activity was noted. CONCLUSION: This electroencephalogram (EEG) in awake, drowsy states, stage 1 and 2 is within normal limits. MTDD
== END ==
LOC: M SLEEP 08:27
PROVIDERS: ATTEND Family Medicine
DX: R55 Syncope and collapse (principal)

== ENCOUNTER → 2019-12-14 | Outpatient (REF) | payer MEDICARE, BC ==
[2019-12-14 19:56] LABS: CALCIUM LEVEL 9.3 MG/DL (8.8-10.2); CREATININE FOR GFR 1.58 MG/DL (0.70-1.30); GLOMERULAR FILTRATION RATE 44.9 (>35); POTASSIUM SERUM 4.2 MEQ/L (3.5-5.1)
[2019-12-14 20:08] LABS: PTH INTACT 75.8 PG/ML (18.5-88.0); TOTAL 25(OH) VITAMIN D 22.1 NG/ML (30.0-100.0)
== END ==
LOC: M SFHCCLAY 16:28
PROVIDERS: ATTEND Family Medicine
DX: M80.00XA Age-related osteoporosis with current pathological fracture, unspecified site, initial encounter for fracture (principal); Z79.899 Other long term (current) drug therapy
CPT/HCPCS: 36415; 80048; 82306; 83970; G0463

== ENCOUNTER → 2019-12-20 | Outpatient (CLI) | payer MEDICARE, BC ==
--- NOTE | 2020-01-04 11:27 | REP ---
DUPLEX CAROTID SONOGRAPHY HISTORY: Stenosis and occlusion of the carotid arteries. FINDINGS: Antegrade flow is observed in both vertebral arteries. RIGHT CAROTID: There is diffuse intimal thickening in the right common carotid artery. There is moderate mixed plaquing in the bulb, proximal ICA, and proximal ECA on two- dimensional scanning on the right side. There are stenotic flow velocities in the right ICA on color Doppler interrogation in systole. Mildly elevated ECA velocities are also observed. VELOCITY CHART RIGHT CAROTID PSV EDV CCA 58 cm/s ICA 196 cm/s 8 cm/s ECA 126 cm/s ICA/CCA ratio 1.7 (elevated) IMPRESSION: 50% to 69% category narrowing in the right internal carotid artery (ICA) by Doppler velocity criteria. LEFT CAROTID: There is mild diffuse intimal thickening of the left common carotid artery. Moderate plaquing is seen mixed in type in the bulb and proximal ICA on the left side. Color flow and spectral Doppler interrogation are unremarkable on the left. VELOCITY CHART LEFT CAROTID PSV EDV CCA 51 cm/s ICA 64 cm/s 15 cm/s ECA 66 cm/s ICA/CCA ratio 1.3 (normal) MTDD
== END ==
LOC: M RAD 12:32
PROVIDERS: ATTEND Physician Assistant
DX: I65.23 Occlusion and stenosis of bilateral carotid arteries (principal); S80.12XA Contusion of left lower leg, initial encounter; X58.XXXA Exposure to other specified factors, initial encounter; Y92.9 Unspecified place or not applicable

== ENCOUNTER → 2020-01-11 | Outpatient (CLI) | payer MEDICARE, BC ==
--- NOTE | 2020-01-16 15:19 | REP ---
LEFT RIB SERIES HISTORY: Fall five days ago with left rib injury. TECHNIQUE: Five views of the left ribs are performed. FINDINGS: I suspect subtle nondisplaced fractures of the posterolateral left seventh and eight ribs. Otherwise there is an old posterolateral left tenth rib fracture, as seen on prior CT of the chest 11/20/2019. No other radiographic abnormalities are seen of the left ribs. A PA view of the chest is performed. There is a left upper lobe nodule as seen on the recent CT of the chest. Two metallic clips are seen in the adjacent lung parenchyma. There is mild biapical pleural thickening. There is no acute infiltrate, pleural effusion, or pneumothorax. The heart is normal in size. There is calcification and tortuosity of the thoracic aorta. IMPRESSION: Suspect subtle nondisplaced fractures of the posterolateral left seventh and eighth ribs. MTDD
== END ==
LOC: M CLY 12:08
PROVIDERS: ATTEND Family Medicine
DX: R07.81 Pleurodynia (principal); Z23 Encounter for immunization
CPT/HCPCS: 71101; 90682; G0008; G0463

== ENCOUNTER → 2020-02-06 | Outpatient (CLI) | payer MEDICARE, BC | LOC: M LABSMTC 10:41 | PROVIDERS: ATTEND Family Medicine | DX: Z20.828 Contact with and (suspected) exposure to other viral communicable diseases (principal) | CPT/HCPCS: C9803; U0003 ==

== ENCOUNTER 2020-06-05 12:05 | Inpatient (IN) | payer MEDICARE, BC ==
[~2020-06-05] VITALS: Ht 180.3 cm; Wt 69.0 kg
[2020-06-05 14:00] VITALS: BP 123/74
--- NOTE | 2020-06-05 14:45 | HPEPDOC ---
Office Services Representative Note DATE OF ADMISSION: 06-05-20 DATE OF SERVICE: 06-05-20 TIME OF ADMISSION: Please refer to physician's admission order. SOURCE OF ADMISSION INFORMATION: [facility] record and patient CHIEF COMPLAINT: TIA with parkinson's HISTORY OF PRESENT ILLNESS: 84M pmh CAD, HTN, CKD3, tremor, COPD, HLD, PAD, DM1, chronic diastolic CHF who developed aphasia and presented to [facility] where CTH was negative for acute intracranial pathology, tpa was not given, and he was transferred to [facility] for further management. MRI was also negative for infarct and he was deemed to have had a TIA. He was placed on ASA, transitioned from daily Plavix to every other day due to full body ecchymosis, and trialed back on Sinemet for previously diagnosed Parkinsons. He developed altered mental status and delirium on the Sinemet which was discontinued and he was placed on propranolol for his tremor. ECHO was done 06-03-20 with a negative bubble study, showing, "The left ventricle is mildly dilated and normal and wall thickness. There is global hypokinesis of the left ventricle present. Segmental wall motion cannot be assessed due to poor image quality. Visually estimated ejection fraction 35%.He had mobility and ADL impairments well below his prior level of function and deemed medically appropriate for discharge to ARU on 06-05-20. REVIEW OF SYSTEMS: The following is a completed review of systems and has been reviewed. Review of systems otherwise unremarkable. PAIN: Patient self reports no pain EYES: No recent vision changes EARS, NOSE, & THROAT: No throat pain, or dysphagia, or rhinorrhea CARDIOVASCULAR: Denies chest pain or palpitations PULMONARY: Denies shortness of breath GASTROINTESTINAL: Denies constipation/diarrhea GENITOURINARY: denies dysuria MUSCULOSKELETAL: generalized weakness NEUROLOGICAL: denies parethesias, +UE tremor HEMATOLOGICAL: +easy bruising SKIN: no rash, scattered ecchymosis PSYCHIATRIC: +confused All other review of systems found to be negative. PAST MEDICAL HISTORY: as per HPI PAST SURGICAL HISTORY: cardiac ALLERGIES: Please see below. MEDICATIONS: Please see below. FAMILY HISTORY: cardiac, cancer SOCIAL HISTORY: former smoker, occasional etoh, no illicit drugs DIET: low sodium PHYSICAL EXAMINATION: VITAL SIGNS: Please see below. GENERAL: Pleasant and cooperative. No acute distress. HEENT: PERRL. Extraocular movements intact. Clear conjunctiva, dry oral mucosa CARDIOVASCULAR: Regular rate and rhythm. No murmurs, rubs, or gallops LUNGS: Clear to auscultation bilaterally. No wheezes. No rhonchi ABDOMEN: Soft, nontender, nondistended. Positive bowel sounds. Normal active bowel sounds NEUROLOGICAL: Alert and oriented to self only, able to follow directions and name object. Cranial nerves II through XII grossly intact. Sensation grossly intact +masked faces, bilat UE tremor EXTREMITIES: 5\\5 strength bilateral upper extremities. 5\\5 strength right lower extremity. 5/5 strength in left lower extremity. SKIN: scattered ecchymosis LABORATORY DATA: Please see below. IMAGING: Imaging documentation personally reviewed by record FUNCTIONAL STATUS: Premorbid: Modified Independent with all activities of daily life as well as mobility On Admission: max assist for functional transfers, ambulation, dressing, toileting GOALS: Supervision-Contact guard ambulation household distances, functional transfers, dressing, toileting, bathing ASSESSMENT:84-year-old M with past medical history of HTN, DM, HLD, untreated parkinsons who presents status post TIA PLAN: 1. 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 Neuro s/p TIA c/u ASA, PLAVIX q2d and statin for secondary stroke prevention -bilat UE tremors with bradykinesia with hx of questionable hx of parkinsons that has not been treated as patient unable to tolerate Sinemet due to delirium, c/u propranolol for tremor -Seroqeul 25qhs started at [facility] for suspected Lewy Body dementia 3. cardiac- - systolic CHF wuth EF 35%, fluid restrict, weigh daily, c/u spironolactone - HTN- c/u amlodipine - CAD c/u asa - HLD- c/u statin 4. Resp- hx of COPD c/u breathing treatments, 02 prn, monitor for infection 5. endo- hx of DM c.u januvia, levemir, and ISS adjust prn 6. DVT ppx- teds, will avoid heparin as patient with full body ecchymosis 7. GI ppx- protonix 8. Dispo- tbd POST ADMISSION PHYSICIAN EVALUATION: Medical and functional status: Description of medical status, medical assessment: As above. Rehabilitation diagnosis and current and prior cold morbid medical conditions as above. Risk of complications and plans to mitigate them as above. Description of functional status current status is as above. Prior status as above. Status compared to preadmission: There are no clinically significant differences between the patient's current status and the information described on the preadmission screening document. Treatment plan anticipated: Treatment plan is as described above. Required disciplines including physical therapy, occupational therapy, others as noted above. Intensity of services: 3 hours a day, 6 days a week. Special considerations: There are no specific special or safety considerations that would likely preclude immediate implementation of an intensive rehabilitation program or subsequently influence the plan of care. ATTESTATION: Considering all the information above, it is my best judgment that this patient requires intensive rehabilitation therapy as described above and an inpatient hospital environment due to the complexity of nursing, medical, and rehabilitation needs required by the patient. Furthermore, this patient can reasonably be expected to participate in an benefit from an inpatient rehabilitation stay with an interdisciplinary team approach to the delivery of rehabilitation care under the direction and supervision of rehabilitation physician. PROGNOSIS: good. ESTIMATED LENGTH OF STAY:18-21 days. PROJECTED DISCHARGE DESTINATION: Home with family support and any durable medical equipment required to increase functional safety and mobility. TIME SPENT COUNSELING AND COORDINATING INITIAL CARE: Greater than 70 minutes. Vital Signs Vital Signs Date Time Temp Pulse Resp B/P (MAP) Pulse Ox O2 Delivery O2 Flow Rate FiO2 06/05/20 14:00 99.1 73 18 123/74 (90) 95 Room Air Home Medications Scheduled Allopurinol (Allopurinol) 100 Mg Tablet, 100 MG PO DAILY, (Reported) Amlodipine Besylate (Norvasc) 5 Mg Tab, 5 MG PO DAILY, (Reported) DECREASED FROM 10MG AT [facility] Aspirin (Aspirin EC) 81 Mg Tablet.dr, 81 MG PO DAILY, (Reported) Atorvastatin Calcium (Atorvastatin Calcium) 40 Mg Tablet, 40 MG PO DAILY, (Reported) INCREASED FROM 20MG AT [facility] Budesonide (Budesonide EC) 3 Mg Capdr...er, 3 MG PO BID, (Reported) Clopidogrel Bisulfate (Clopidogrel) 75 Mg Tab, 75 MG PO DAILY, (Reported) Docusate Sodium (Colace) 100 Mg Capsule, 100 MG PO BID, (Reported) Doxepin HCl (Doxepin HCl) 100 Mg Capsule, 100 MG PO QHS, (Reported) Fluticasone/Vilanterol (Breo Ellipta 200-25 Mcg INH) 1 Inh Inh, 1 PUFF INH DAILY, (Reported) RECEIVED SYMBICORT 80/4.5 AT [facility] Insulin Glargine,Hum.rec.anlog (Lantus Solostar) 100 Unit/1 Ml Insuln.pen, 10 UNIT SC QHS, (Reported) Insulin Human Lispro (Humalog) 100 Unit/1 Ml Vial, 1 DOSE SC AC, (Reported) PER SLIDING SCALE L.acidoph/L.bulg/B.bif/S.therm (Bacid Caplet) 1 Each Tablet, 1 TAB PO DAILY, (Reported) Multivit-Min/FA/Lycopen/Lutein (Centrum Silver Tablet) 1 Each Tablet, 1 TAB PO DAILY, (Reported) Pantoprazole Sodium (Pantoprazole Sodium) 40 Mg Tablet.dr, 40 MG PO DAILY, (Reported) Polyethylene Glycol 3350 (Miralax) 119 Gm Powder, 17 GM PO DAILY, (Reported) Propranolol HCl (Propranolol HCl) 10 Mg Tablet, 10 MG PO TID, (Reported) Repaglinide (Repaglinide) 1 Mg Tab, 2 MG PO TID, (Reported) Sitagliptin (Januvia) 50 Mg Tablet, 50 MG PO DAILY, (Reported) Spironolactone (Spironolactone) 25 Mg Tablet, 12.5 MG PO DAILY, (Reported) Umeclidinium [place] (Incruse Ellipta) 62.5 Mcg/Inh Inh, 1 PUFF INH DAILY, (Reported) Scheduled PRN Sennosides (Senna Lax) 8.6 Mg Tablet, 17.2 MG PO QHS PRN for CONSTIPATION, (Reported) Allergies Coded Allergies: cephalexin (Verified Allergy, Mild, 09/29/19) alprazolam (Verified Allergy, Unknown, 06/05/20) A-FIB/CHADSVASC A-FIB History Current/History of A-Fib/PAF?: No Current PO Anticoag Therapy: No SEAN WARNER MD Jun 05, 2020 14:45
[2020-06-05] MEDS ORDERED: BISACODYL 10 MG SUPP PR PRN (14:55)
[2020-06-05] MEDS ORDERED: DEXTROSE 50% 50 ML SYRINGE IV PRN (14:55)
[2020-06-05] MEDS ORDERED: GLUCOSE 4GM CHEW TABLET PO PRN (14:55)
[2020-06-05] MEDS ORDERED: GLUCAGON INJ 1MG VIAL SC PRN (14:55)
[2020-06-05] MEDS ORDERED: HEPARIN SOD (PORCINE) 5000UNITS/ML 1ML VIAL/SYRINGE SC SCH (14:55)
[2020-06-05] MEDS ORDERED: ACETAMINOPHEN TAB 650MG DOSE (2X325MG) PO PRN (14:55)
[2020-06-05] MEDS ORDERED: COLA100C5 PO (15:45)
[2020-06-05] MEDS ORDERED: MIRA3350 PO (15:45)
[2020-06-05] MEDS ORDERED: RA S8.6T3 PO (15:45)
[2020-06-05] MEDS ORDERED: PANT-23 PO (15:45)
[2020-06-05] MEDS ORDERED: CENT1TAB PO (15:45)
[2020-06-05] MEDS ORDERED: BACITAB PO (15:45)
[2020-06-05] MEDS ORDERED: ASPI-161 PO (15:45)
[2020-06-05] MEDS ORDERED: INSUHUMDS SC (15:45)
[2020-06-05] MEDS ORDERED: ALLO10TA PO (15:45)
[2020-06-05] MEDS ORDERED: PROP10TA56 PO (15:45)
[2020-06-05] MEDS ORDERED: ATOR40TA75 PO (15:45)
[2020-06-05] MEDS ORDERED: BUDE3CAP PO (15:45)
[2020-06-05] MEDS ORDERED: DOXE100CA PO (15:45)
[2020-06-05] MEDS: HumaLOG INSULIN (NovoLOG) PER UNIT SC SCH ×2 (17:33→21:00)
[2020-06-05] MEDS: MAGIC MOUTHWASH SUSPENSION BTL SSP SCH (17:33)
[2020-06-05] MEDS: REMEDY PHYTOPLEX Z-GUARD PASTE 113GM TUBE (FROM STOREROOM PRODUCT) TOP SCH ×2 (17:33→21:47)
[2020-06-05] MEDS: PROPRANOLOL 10 MG TAB PO SCH ×2 (17:35→21:46)
[2020-06-05] MEDS: LACTOBACILLUS ACIDOPHILUS CAP (BACID) PO SCH ×2 (17:35→21:45)
[2020-06-05] MEDS: IPRATROPIUM 0.5MG/ALBUTEROL 2.5MG INH SOL UD 3ML (DUONEB) NEB SCH (19:48)
[2020-06-05] MEDS: FLUTICASONE HFA 220 MCG 12 GM INHALER (FLOVENT) INH SCH (19:49)
[2020-06-05 20:00] VITALS: BP 162/74
[2020-06-05] MEDS: DOCUSATE SODIUM 100MG CAPSULE PO SCH (21:45)
[2020-06-05] MEDS: SENNA 8.6 MG TAB (SENOKOT) PO SCH (21:46)
[2020-06-05] MEDS: QUEtiapine FUMARATE 25 MG TAB PO SCH (21:46)
[2020-06-05] MEDS: BUDESONIDE EC 3 MG CAP (ENTOCORT EC) PO SCH (21:46)
[2020-06-05] MEDS: LEVEMIR (INSULIN DETEMIR) 1 UNITS/0.01ML SC SCH (21:47)
[2020-06-05] MEDS: FLUTICASONE PROP 0.05% NASAL SPRAY 16 GM (FLONASE) NARES SCH (21:48)
[2020-06-06 05:18] LABS: BASO % 0.4 % (0.0-1.0); EOS # 0.2 10^3/uL (0.0-0.5); EOS % 2.2 % (0.0-3.0); HEMATOCRIT 36.3 % (42.0-52.0); HEMOGLOBIN 12.2 g/dl (13.5-17.5); LYMPH # 1.2 10^3/uL (1.5-5.0); LYMPH % 16.9 % (24.0-44.0); MEAN CORPUSCULAR HEMOGLOBIN 31.9 pg (27.0-33.0); MEAN CORPUSCULAR HGB CONC 33.6 g/dl (32.0-36.5); MONO # 1.1 10^3/uL (0.0-0.8); MONO % 15.4 % (2.0-8.0); NEUTROPHILS # 4.4 10^3/uL (1.5-8.5); NEUTROPHILS % 64.2 % (36.0-66.0); PLATELET COUNT, AUTOMATED 173 10^3/uL (150-450); RED BLOOD COUNT 3.82 10^6/uL (4.30-6.10); WHITE BLOOD COUNT 6.8 10^3/uL (4.0-10.0)
[2020-06-06 05:23] VITALS: BP 149/70
[2020-06-06 05:44] LABS: ALBUMIN 2.8 GM/DL (3.2-5.2); BILIRUBIN,TOTAL 1.5 MG/DL (0.2-1.0); CALCIUM LEVEL 9.4 MG/DL (8.8-10.2); CREATININE FOR GFR 1.79 MG/DL (0.70-1.30); GLOMERULAR FILTRATION RATE 38.9 (>35)
[2020-06-06] MEDS: FLUTICASONE HFA 220 MCG 12 GM INHALER (FLOVENT) INH SCH (07:12)
[2020-06-06] MEDS: IPRATROPIUM 0.5MG/ALBUTEROL 2.5MG INH SOL UD 3ML (DUONEB) NEB SCH ×3 (07:12→19:33)
[2020-06-06] MEDS: ASPIRIN 81MG ENTERIC TABLET PO SCH (09:23)
[2020-06-06] MEDS: PANTOPRAZOLE 40MG TAB (PROTONIX) PO SCH (09:23)
[2020-06-06] MEDS: SITagliptin 50 MG TAB (JANUVIA) PO SCH (09:23)
[2020-06-06] MEDS: LACTOBACILLUS ACIDOPHILUS CAP (BACID) PO SCH ×3 (09:23→20:39)
[2020-06-06] MEDS: DOCUSATE SODIUM 100MG CAPSULE PO SCH ×2 (09:25→20:40)
[2020-06-06] MEDS: ATORVASTATIN 20 MG TAB PO SCH (09:26)
[2020-06-06] MEDS: BUDESONIDE EC 3 MG CAP (ENTOCORT EC) PO SCH ×2 (09:26→20:39)
[2020-06-06] MEDS: amLODIPine 5 MG TAB PO SCH (09:26)
[2020-06-06] MEDS: MULTIVITAMINS/MINERALS THERAP 1 TAB PO SCH (09:26)
[2020-06-06] MEDS: allopurinoL 100 MG TAB PO SCH (09:26)
[2020-06-06] MEDS: SPIRONOLACTONE 12.5MG PER 1/2 TABLET PO SCH (09:27)
[2020-06-06] MEDS: MAGIC MOUTHWASH SUSPENSION BTL SSP SCH ×3 (09:27→17:11)
[2020-06-06] MEDS: REMEDY PHYTOPLEX Z-GUARD PASTE 113GM TUBE (FROM STOREROOM PRODUCT) TOP SCH ×3 (09:27→20:41)
[2020-06-06] MEDS: PROPRANOLOL 10 MG TAB PO SCH ×3 (09:27→20:40)
[2020-06-06] MEDS: FLUTICASONE PROP 0.05% NASAL SPRAY 16 GM (FLONASE) NARES SCH ×2 (09:28→20:41)
[2020-06-06] MEDS: HumaLOG INSULIN (NovoLOG) PER UNIT SC SCH ×4 (09:32→20:58)
[2020-06-06] MEDS: TIOTROPIUM INHALER/CAPSULE (SPIRIVA) INH SCH (11:02)
[2020-06-06 14:00] VITALS: BP 125/69
[2020-06-06] MEDS: SYMBICORT 80/4.5MCG INHALER 6GM INH SCH (19:32)
[2020-06-06 20:20] VITALS: BP 150/75
[2020-06-06] MEDS: SENNA 8.6 MG TAB (SENOKOT) PO SCH (20:39)
[2020-06-06] MEDS: QUEtiapine FUMARATE 25 MG TAB PO SCH (20:40)
[2020-06-06] MEDS: LEVEMIR (INSULIN DETEMIR) 1 UNITS/0.01ML SC SCH (20:41)
[2020-06-07 06:21] VITALS: BP 145/84
[2020-06-07] MEDS: TIOTROPIUM INHALER/CAPSULE (SPIRIVA) INH SCH (07:09)
[2020-06-07] MEDS: SYMBICORT 80/4.5MCG INHALER 6GM INH SCH ×2 (07:09→20:03)
[2020-06-07] MEDS: IPRATROPIUM 0.5MG/ALBUTEROL 2.5MG INH SOL UD 3ML (DUONEB) NEB SCH ×3 (07:09→20:02)
[2020-06-07] MEDS: MAGIC MOUTHWASH SUSPENSION BTL SSP SCH ×3 (09:46→17:35)
[2020-06-07] MEDS: SITagliptin 50 MG TAB (JANUVIA) PO SCH (09:47)
[2020-06-07] MEDS: HumaLOG INSULIN (NovoLOG) PER UNIT SC SCH ×4 (09:47→19:55)
[2020-06-07] MEDS: MULTIVITAMINS/MINERALS THERAP 1 TAB PO SCH (09:48)
[2020-06-07] MEDS: DOCUSATE SODIUM 100MG CAPSULE PO SCH ×2 (09:48→20:45)
[2020-06-07] MEDS: ASPIRIN 81MG ENTERIC TABLET PO SCH (09:48)
[2020-06-07] MEDS: BUDESONIDE EC 3 MG CAP (ENTOCORT EC) PO SCH ×2 (09:48→20:45)
[2020-06-07] MEDS: LACTOBACILLUS ACIDOPHILUS CAP (BACID) PO SCH ×3 (09:48→20:45)
[2020-06-07] MEDS: ATORVASTATIN 20 MG TAB PO SCH (09:48)
[2020-06-07] MEDS: CLOPIDOGREL 75 MG TAB PO SCH (09:48)
[2020-06-07] MEDS: PANTOPRAZOLE 40MG TAB (PROTONIX) PO SCH (09:49)
[2020-06-07] MEDS: FLUTICASONE PROP 0.05% NASAL SPRAY 16 GM (FLONASE) NARES SCH ×2 (09:49→20:46)
[2020-06-07] MEDS: REMEDY PHYTOPLEX Z-GUARD PASTE 113GM TUBE (FROM STOREROOM PRODUCT) TOP SCH ×3 (09:49→20:46)
[2020-06-07] MEDS: SPIRONOLACTONE 12.5MG PER 1/2 TABLET PO SCH (09:50)
[2020-06-07] MEDS: amLODIPine 5 MG TAB PO SCH (09:53)
[2020-06-07] MEDS: PROPRANOLOL 10 MG TAB PO SCH ×3 (09:53→20:45)
[2020-06-07] MEDS: allopurinoL 100 MG TAB PO SCH (09:53)
[2020-06-07 14:00] VITALS: BP 169/77
[2020-06-07 20:00] VITALS: BP 151/85
[2020-06-07] MEDS: LEVEMIR (INSULIN DETEMIR) 1 UNITS/0.01ML SC SCH (20:45)
[2020-06-07] MEDS: QUEtiapine FUMARATE 25 MG TAB PO SCH (20:45)
[2020-06-07] MEDS: SENNA 8.6 MG TAB (SENOKOT) PO SCH (20:45)
[2020-06-08 05:30] VITALS: BP 159/84
[2020-06-08] MEDS: TIOTROPIUM INHALER/CAPSULE (SPIRIVA) INH SCH (07:08)
[2020-06-08] MEDS: SYMBICORT 80/4.5MCG INHALER 6GM INH SCH ×2 (07:08→19:47)
[2020-06-08] MEDS: IPRATROPIUM 0.5MG/ALBUTEROL 2.5MG INH SOL UD 3ML (DUONEB) NEB SCH ×3 (07:13→19:47)
[2020-06-08] MEDS: MAGIC MOUTHWASH SUSPENSION BTL SSP SCH ×3 (07:47→16:56)
[2020-06-08] MEDS: HumaLOG INSULIN (NovoLOG) PER UNIT SC SCH ×4 (07:47→21:00)
[2020-06-08] MEDS: BUDESONIDE EC 3 MG CAP (ENTOCORT EC) PO SCH ×2 (07:48→21:21)
[2020-06-08] MEDS: SITagliptin 50 MG TAB (JANUVIA) PO SCH (07:48)
[2020-06-08] MEDS: ATORVASTATIN 20 MG TAB PO SCH (07:48)
[2020-06-08] MEDS: DOCUSATE SODIUM 100MG CAPSULE PO SCH ×2 (07:48→21:21)
[2020-06-08] MEDS: PANTOPRAZOLE 40MG TAB (PROTONIX) PO SCH (07:48)
[2020-06-08] MEDS: MULTIVITAMINS/MINERALS THERAP 1 TAB PO SCH (07:48)
[2020-06-08] MEDS: ASPIRIN 81MG ENTERIC TABLET PO SCH (07:48)
[2020-06-08] MEDS: PROPRANOLOL 10 MG TAB PO SCH ×3 (07:49→21:22)
[2020-06-08] MEDS: SPIRONOLACTONE 12.5MG PER 1/2 TABLET PO SCH (07:49)
[2020-06-08] MEDS: LACTOBACILLUS ACIDOPHILUS CAP (BACID) PO SCH ×3 (07:49→21:21)
[2020-06-08] MEDS: allopurinoL 100 MG TAB PO SCH (07:50)
[2020-06-08] MEDS: amLODIPine 5 MG TAB PO SCH (07:50)
[2020-06-08] MEDS: REMEDY PHYTOPLEX Z-GUARD PASTE 113GM TUBE (FROM STOREROOM PRODUCT) TOP SCH ×3 (07:51→21:24)
[2020-06-08] MEDS: FLUTICASONE PROP 0.05% NASAL SPRAY 16 GM (FLONASE) NARES SCH ×2 (07:51→21:24)
[2020-06-08 14:02] VITALS: BP 171/85
--- NOTE | 2020-06-08 19:47 | IPNPDOC ---
PM&R Progress Note DATE OF SERVICE: Jun 06, 2020 [employer] Progress Note SUbjective: Patient kady mclean walking in therapy, stating he felt good and not too wobbly while walking. He denies any pain or trouble sleeping. REVIEW OF SYSTEMS: The following is a completed review of systems and has been reviewed. Review of systems otherwise unremarkable. PAIN: Patient self reports no pain EYES: No recent vision changes EARS, NOSE, & THROAT: No throat pain, or dysphagia, or rhinorrhea CARDIOVASCULAR: Denies chest pain or palpitations PULMONARY: Denies shortness of breath GASTROINTESTINAL: Denies constipation/diarrhea GENITOURINARY: denies dysuria MUSCULOSKELETAL: generalized weakness NEUROLOGICAL: denies parethesias, +UE tremor HEMATOLOGICAL: +easy bruising SKIN: no rash, scattered ecchymosis PSYCHIATRIC: +confused All other review of systems found to be negative. PHYSICAL EXAMINATION: VITAL SIGNS: Please see below. GENERAL: Pleasant and cooperative. No acute distress. HEENT: PERRL. Extraocular movements intact. Clear conjunctiva, dry oral mucosa CARDIOVASCULAR: Regular rate and rhythm. No murmurs, rubs, or gallops LUNGS: Clear to auscultation bilaterally. No wheezes. No rhonchi ABDOMEN: Soft, nontender, nondistended. Positive bowel sounds. Normal active bowel sounds NEUROLOGICAL: Alert and oriented to self only, able to follow directions and name object. Cranial nerves II through XII grossly intact. Sensation grossly intact +masked faces, bilat UE tremor EXTREMITIES: 5\5 strength bilateral upper extremities. 5\5 strength right lower extremity. 5/5 strength in left lower extremity. SKIN: scattered ecchymosis ASSESSMENT:84-year-old M with past medical history of HTN, DM, HLD, untreated parkinsons who presents status post TIA PLAN: 1. 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 Neuro s/p TIA c/u ASA, PLAVIX q2d and statin for secondary stroke prevention -bilat UE tremors with bradykinesia with hx of questionable hx of parkinsons that has not been treated as patient unable to tolerate Sinemet due to delirium, c/u propranolol for tremor -Seroqeul 25qhs started at [facility] for suspected Lewy Body dementia 3. cardiac- - systolic CHF wuth EF 35%, fluid restrict, weigh daily, c/u spironolactone - HTN- c/u amlodipine - CAD c/u asa - HLD- c/u statin 4. Resp- hx of COPD c/u breathing treatments, 02 prn, monitor for infection 5. endo- hx of DM c.u januvia, levemir, and ISS adjust prn 6. DVT ppx- teds, will avoid heparin as patient with full body ecchymosis 7. GI ppx- protonix 8. Dispo- tbd Allergies Coded Allergies: cephalexin (Verified Allergy, Mild, 09/29/19) alprazolam (Verified Allergy, Unknown, 06/05/20) Vital Signs Vital Signs Date Time Temp Pulse Resp B/P (MAP) Pulse Ox O2 Delivery O2 Flow Rate FiO2 06/08/20 16:56 74 172/83 06/08/20 14:02 98.4 18 90 Room Air Laboratory Data Labs 24H Laboratory Tests 2 06/08/20 05:55: Bedside Glucose (Misc Panel) 108 06/08/20 16:50: Bedside Glucose (Misc Panel) 123H Current Medications Current Medications Current Medications Medications (Trade) Dose Ordered Sig/Tracey Route PRN Reason Start Time Stop Time Status Last Admin Dose Admin Acetaminophen (Tylenol Tab) 650 mg Q4HP PRN PO fever/MILD PAIN (PS 1-4) 06/05/20 14:55 Albuterol/ Ipratropium (Duoneb (Ipr 0.5mg/Alb 2.5mg)) 3 ml RTID NEB 06/05/20 20:00 06/08/20 12:58 Allopurinol (Zyloprim) 100 mg DAILY PO 06/06/20 09:00 06/08/20 07:50 Amlodipine Besylate (Norvasc) 5 mg DAILY PO 06/06/20 09:00 06/08/20 07:50 Aspirin (Ecotrin) 81 mg DAILY PO 06/06/20 09:00 06/08/20 07:48 Atorvastatin Calcium (Lipitor) 40 mg DAILY PO 06/06/20 09:00 06/08/20 07:48 Bisacodyl (Dulcolax Suppository) 10 mg DAILYPRN PRN [place] CONSTIPATION 06/05/20 14:55 Budesonide (Entocort Ec) 3 mg BID PO 06/05/20 21:00 06/08/20 07:48 Budesonide/ Formoterol Fumarate (Symbicort 80/ 4.5mcg) 2 puff RBID INH 06/06/20 20:00 06/08/20 07:08 Clopidogrel Bisulfate (PLAVix) 75 mg Q2D@0900 PO 06/07/20 09:00 06/07/20 09:48 Dextrose (Dextrose 50%) 25 ml ASDIRECTED PRN IV SEE LABEL COMMENTS 06/05/20 14:55 Docusate Sodium (Colace) 100 mg BID PO 06/05/20 21:00 06/08/20 07:48 Fluticasone Propionate (Flonase 0.05% Nasal [place]) 1 spray BID NARES 06/05/20 21:00 06/08/20 07:51 Fluticasone Propionate (Flovent Hfa 220mcg) 2 puff RBID INH 06/05/20 20:00 06/06/20 08:13 DC 06/06/20 07:12 Glucagon (Glucagon) 1 mg ASDIRECTED PRN SC SEE LABEL COMMENTS 06/05/20 14:55 Glucose (Glucose) 16 GM ASDIRECTED PRN PO SEE LABEL COMMENTS 06/05/20 14:55 Heparin Sodium (Porcine) (Heparin) 5,000 units Q12H SC 06/05/20 14:55 06/05/20 15:33 DC Home Med (Med Rec Complete!) ASDIRECTED XX 06/05/20 15:45 06/05/20 15:47 DC Insulin Detemir (Levemir Insulin) 5 units QHS SC 06/05/20 21:00 06/07/20 20:45 Insulin Human Lispro (HumaLOG INSULIN) SEE PROTOCOL TABLE AC SC 06/05/20 17:30 06/08/20 16:56 Insulin Human Lispro (HumaLOG INSULIN) SEE PROTOCOL TABLE QHS SC 06/05/20 21:00 Lactobacillus Acidophilus (Bacid) 1 ea TID PO 06/05/20 16:00 06/08/20 16:53 Lidocaine/ Diphenhydr/Alum/ Mg/Simeth (Magic Mouthwash) 5ML AC SSP 06/05/20 17:30 06/08/20 16:56 Multivitamins (Theragram-M) 1 tab DAILY PO 06/06/20 09:00 06/08/20 07:48 Pantoprazole Sodium (Protonix) 40 mg DAILY PO 06/06/20 09:00 06/08/20 07:48 Propranolol HCl (Inderal) 10 mg TID PO 06/05/20 16:00 06/08/20 16:56 Quetiapine Fumarate (SEROquel) 25 mg QHS PO 06/05/20 21:00 06/07/20 20:45 Senna (Senokot) 1 tab QHS PO 06/05/20 21:00 06/07/20 20:45 Sitagliptin Phosphate (Januvia) 50 mg DAILY PO 06/06/20 09:00 06/08/20 07:48 Spironolactone (Aldactone) 12.5 mg DAILY PO 06/06/20 09:00 06/08/20 07:49 Tiotropium [place] (Spiriva Handihaler) 1 inhalation DAILY@08 INH 06/06/20 08:00 06/08/20 07:08 SEAN WARNER MD Jun 08, 2020 19:47
[2020-06-08 20:00] VITALS: BP 164/77
[2020-06-08] MEDS: LEVEMIR (INSULIN DETEMIR) 1 UNITS/0.01ML SC SCH (21:20)
[2020-06-08] MEDS: QUEtiapine FUMARATE 25 MG TAB PO SCH (21:21)
[2020-06-08] MEDS: SENNA 8.6 MG TAB (SENOKOT) PO SCH (21:21)
[2020-06-08] MEDS: **hydrALAZINE HCL** 25 MG TAB PO SCH (21:22)
[2020-06-09 00:36] VITALS: BP 131/60
[2020-06-09] MEDS: **hydrALAZINE HCL** 25 MG TAB PO SCH ×4 (05:35→17:33)
[2020-06-09 06:00] VITALS: BP 146/66
[2020-06-09] MEDS: SYMBICORT 80/4.5MCG INHALER 6GM INH SCH ×2 (07:09→19:39)
[2020-06-09] MEDS: TIOTROPIUM INHALER/CAPSULE (SPIRIVA) INH SCH (07:09)
[2020-06-09] MEDS: IPRATROPIUM 0.5MG/ALBUTEROL 2.5MG INH SOL UD 3ML (DUONEB) NEB SCH ×3 (07:19→19:39)
[2020-06-09 07:33] LABS: BASO % 0.4 % (0.0-1.0); EOS # 0.1 10^3/uL (0.0-0.5); EOS % 1.4 % (0.0-3.0); HEMATOCRIT 38.2 % (42.0-52.0); HEMOGLOBIN 12.9 g/dl (13.5-17.5); LYMPH # 1.5 10^3/uL (1.5-5.0); LYMPH % 18.6 % (24.0-44.0); MEAN CORPUSCULAR HEMOGLOBIN 31.7 pg (27.0-33.0); MEAN CORPUSCULAR HGB CONC 33.8 g/dl (32.0-36.5); MEAN CORPUSCULAR VOLUME 93.9 fl (80.0-96.0); MONO % 13.1 % (2.0-8.0); NEUTROPHILS # 5.1 10^3/uL (1.5-8.5); NEUTROPHILS % 65.9 % (36.0-66.0); PLATELET COUNT, AUTOMATED 220 10^3/uL (150-450); RED BLOOD COUNT 4.07 10^6/uL (4.30-6.10); WHITE BLOOD COUNT 7.8 10^3/uL (4.0-10.0)
[2020-06-09 07:52] LABS: CALCIUM LEVEL 9.8 MG/DL (8.8-10.2); CREATININE FOR GFR 1.83 MG/DL (0.70-1.30); GLOMERULAR FILTRATION RATE 37.9 (>35); POTASSIUM SERUM 3.9 MEQ/L (3.5-5.1)
[2020-06-09] MEDS: CLOPIDOGREL 75 MG TAB PO SCH (08:31)
[2020-06-09] MEDS: DOCUSATE SODIUM 100MG CAPSULE PO SCH ×2 (08:31→20:55)
[2020-06-09] MEDS: SPIRONOLACTONE 12.5MG PER 1/2 TABLET PO SCH (08:31)
[2020-06-09] MEDS: SITagliptin 50 MG TAB (JANUVIA) PO SCH (08:32)
[2020-06-09] MEDS: ATORVASTATIN 20 MG TAB PO SCH (08:32)
[2020-06-09] MEDS: allopurinoL 100 MG TAB PO SCH (08:32)
[2020-06-09] MEDS: PANTOPRAZOLE 40MG TAB (PROTONIX) PO SCH (08:32)
[2020-06-09] MEDS: BUDESONIDE EC 3 MG CAP (ENTOCORT EC) PO SCH ×2 (08:32→20:55)
[2020-06-09] MEDS: PROPRANOLOL 10 MG TAB PO SCH ×3 (08:32→20:55)
[2020-06-09] MEDS: ASPIRIN 81MG ENTERIC TABLET PO SCH (08:32)
[2020-06-09] MEDS: MULTIVITAMINS/MINERALS THERAP 1 TAB PO SCH (08:32)
[2020-06-09] MEDS: REMEDY PHYTOPLEX Z-GUARD PASTE 113GM TUBE (FROM STOREROOM PRODUCT) TOP SCH ×3 (08:33→20:56)
[2020-06-09] MEDS: FLUTICASONE PROP 0.05% NASAL SPRAY 16 GM (FLONASE) NARES SCH ×2 (08:33→20:56)
[2020-06-09] MEDS: LACTOBACILLUS ACIDOPHILUS CAP (BACID) PO SCH ×3 (08:33→20:55)
[2020-06-09] MEDS: HumaLOG INSULIN (NovoLOG) PER UNIT SC SCH ×4 (08:33→20:56)
[2020-06-09] MEDS: amLODIPine 5 MG TAB PO SCH (08:33)
[2020-06-09] MEDS: MAGIC MOUTHWASH SUSPENSION BTL SSP SCH ×3 (08:34→17:32)
--- NOTE | 2020-06-09 09:38 | IPNPDOC ---
PM&R Progress Note DATE OF SERVICE: Jun 09, 2020 [employer] Progress Note SUbjective: Patient seen in his room, stating he felt well, but that he was urinating more often than he was used to. REVIEW OF SYSTEMS: The following is a completed review of systems and has been reviewed. Review of systems otherwise unremarkable. PAIN: Patient self reports no pain EYES: No recent vision changes EARS, NOSE, & THROAT: No throat pain, or dysphagia, or rhinorrhea CARDIOVASCULAR: Denies chest pain or palpitations PULMONARY: Denies shortness of breath GASTROINTESTINAL: Denies constipation/diarrhea GENITOURINARY: denies dysuria MUSCULOSKELETAL: generalized weakness NEUROLOGICAL: denies parethesias, +UE tremor HEMATOLOGICAL: +easy bruising SKIN: no rash, scattered ecchymosis PSYCHIATRIC: +confused All other review of systems found to be negative. PHYSICAL EXAMINATION: VITAL SIGNS: Please see below. GENERAL: Pleasant and cooperative. No acute distress. HEENT: PERRL. Extraocular movements intact. Clear conjunctiva, dry oral mucosa CARDIOVASCULAR: Regular rate and rhythm. No murmurs, rubs, or gallops LUNGS: Clear to auscultation bilaterally. No wheezes. No rhonchi ABDOMEN: Soft, nontender, nondistended. Positive bowel sounds. Normal active bowel sounds NEUROLOGICAL: Alert and oriented to self only, able to follow directions and name object. Cranial nerves II through XII grossly intact. Sensation grossly intact +masked faces, bilat UE tremor EXTREMITIES: 5\5 strength bilateral upper extremities. 5\5 strength right lower extremity. 5/5 strength in left lower extremity. SKIN: scattered ecchymosis ASSESSMENT:84-year-old M with past medical history of HTN, DM, HLD, untreated parkinsons who presents status post TIA PLAN: 1. 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 Neuro s/p TIA c/u ASA, PLAVIX q2d and statin for secondary stroke prevention -bilat UE tremors with bradykinesia with hx of questionable hx of parkinsons that has not been treated as patient unable to tolerate Sinemet due to delirium, c/u propranolol for tremor -Seroqeul 25qhs started at [facility] for suspected Lewy Body dementia 3. cardiac- - systolic CHF wuth EF 35%, fluid restrict, weigh daily, c/u spironolactone - HTN- c/u amlodipine - CAD c/u asa - HLD- c/u statin 4. Resp- hx of COPD c/u breathing treatments, 02 prn, monitor for infection 5. endo- hx of DM c.u januvia, levemir, and ISS adjust prn 6. DVT ppx- teds, will avoid heparin as patient with full body ecchymosis 7. GI ppx- protonix 8. - patient reporting increased frequency in urination, will order UA/Ucx 8. Dispo- tbd Allergies Coded Allergies: cephalexin (Verified Allergy, Mild, 09/29/19) alprazolam (Verified Allergy, Unknown, 06/05/20) Vital Signs Vital Signs Date Time Temp Pulse Resp B/P (MAP) Pulse Ox O2 Delivery O2 Flow Rate FiO2 06/09/20 08:32 91 133/68 06/09/20 06:00 98.0 18 93 Room Air Laboratory Data CBC/BMP Laboratory Tests 06/09/20 06:07 Labs 24H Laboratory Tests 2 06/08/20 16:50: Bedside Glucose (Misc Panel) 123H 06/08/20 20:48: Bedside Glucose (Misc Panel) 176H 06/09/20 05:30: Bedside Glucose (Misc Panel) 136H 06/09/20 06:07: Immature Granulocyte % (Auto) 0.6, Neutrophils (%) (Auto) 65.9, Lymphocytes (%) (Auto) 18.6L, Monocytes (%) (Auto) 13.1H, Eosinophils (%) (Auto) 1.4, Basophils (%) (Auto) 0.4, Neutrophils # (Auto) 5.1, Lymphocytes # (Auto) 1.5, Monocytes # (Auto) 1.0H, Eosinophils # (Auto) 0.1, Basophils # (Auto) 0.0, Nucleated Red Blood Cells % (auto) 0.0, Anion Gap 8, Glomerular Filtration Rate 37.9, Calcium Level 9.8 Current Medications Current Medications Current Medications Medications (Trade) Dose Ordered Sig/Tracey Route PRN Reason Start Time Stop Time Status Last Admin Dose Admin Acetaminophen (Tylenol Tab) 650 mg Q4HP PRN PO fever/MILD PAIN (PS 1-4) 06/05/20 14:55 Albuterol/ Ipratropium (Duoneb (Ipr 0.5mg/Alb 2.5mg)) 3 ml RTID NEB 06/05/20 20:00 06/08/20 19:47 Allopurinol (Zyloprim) 100 mg DAILY PO 06/06/20 09:00 06/09/20 08:32 Amlodipine Besylate (Norvasc) 5 mg DAILY PO 06/06/20 09:00 06/09/20 08:33 Aspirin (Ecotrin) 81 mg DAILY PO 06/06/20 09:00 06/09/20 08:32 Atorvastatin Calcium (Lipitor) 40 mg DAILY PO 06/06/20 09:00 06/09/20 08:32 Bisacodyl (Dulcolax Suppository) 10 mg DAILYPRN PRN [place] CONSTIPATION 06/05/20 14:55 Budesonide (Entocort Ec) 3 mg BID PO 06/05/20 21:00 06/09/20 08:32 Budesonide/ Formoterol Fumarate (Symbicort 80/ 4.5mcg) 2 puff RBID INH 06/06/20 20:00 06/09/20 07:09 Clopidogrel Bisulfate (PLAVix) 75 mg Q2D@0900 PO 06/07/20 09:00 06/09/20 08:31 Dextrose (Dextrose 50%) 25 ml ASDIRECTED PRN IV SEE LABEL COMMENTS 06/05/20 14:55 Docusate Sodium (Colace) 100 mg BID PO 06/05/20 21:00 06/09/20 08:31 Fluticasone Propionate (Flonase 0.05% Nasal [place]) 1 spray BID NARES 06/05/20 21:00 06/09/20 08:33 Fluticasone Propionate (Flovent Hfa 220mcg) 2 puff RBID INH 06/05/20 20:00 06/06/20 08:13 DC 06/06/20 07:12 Glucagon (Glucagon) 1 mg ASDIRECTED PRN SC SEE LABEL COMMENTS 06/05/20 14:55 Glucose (Glucose) 16 GM ASDIRECTED PRN PO SEE LABEL COMMENTS 06/05/20 14:55 Heparin Sodium (Porcine) (Heparin) 5,000 units Q12H SC 06/05/20 14:55 06/05/20 15:33 DC Home Med (Med Rec Complete!) ASDIRECTED XX 06/05/20 15:45 06/05/20 15:47 DC Hydralazine HCl (Apresoline) 25 mg Q6H PO 06/08/20 18:00 06/09/20 05:35 Insulin Detemir (Levemir Insulin) 5 units QHS SC 06/05/20 21:00 06/08/20 21:20 Insulin Human Lispro (HumaLOG INSULIN) SEE PROTOCOL TABLE AC SC 06/05/20 17:30 06/09/20 08:33 Insulin Human Lispro (HumaLOG INSULIN) SEE PROTOCOL TABLE QHS SC 06/05/20 21:00 Lactobacillus Acidophilus (Bacid) 1 ea TID PO 06/05/20 16:00 06/09/20 08:33 Lidocaine/ Diphenhydr/Alum/ Mg/Simeth (Magic Mouthwash) 5ML AC SSP 06/05/20 17:30 06/09/20 08:34 Multivitamins (Theragram-M) 1 tab DAILY PO 06/06/20 09:00 06/09/20 08:32 Pantoprazole Sodium (Protonix) 40 mg DAILY PO 06/06/20 09:00 06/09/20 08:32 Propranolol HCl (Inderal) 10 mg TID PO 06/05/20 16:00 06/09/20 08:32 Quetiapine Fumarate (SEROquel) 25 mg QHS PO 06/05/20 21:00 06/08/20 21:21 Senna (Senokot) 1 tab QHS PO 06/05/20 21:00 06/08/20 21:21 Sitagliptin Phosphate (Januvia) 50 mg DAILY PO 06/06/20 09:00 06/09/20 08:32 Spironolactone (Aldactone) 12.5 mg DAILY PO 06/06/20 09:00 06/09/20 08:31 Tiotropium [place] (Spiriva Handihaler) 1 inhalation DAILY@08 INH 06/06/20 08:00 06/09/20 07:09 SEAN WARNER MD Jun 09, 2020 09:38
[2020-06-09 14:00] VITALS: BP 176/81
--- NOTE | 2020-06-09 16:09 | HPEPDOC ---
[facility] Medical History & Physical Date of Admission Jun 05, 2020 Date of Service: Jun 09, 2020 Attending Physician: GABI MURRAY MD History and Physical CHIEF COMPLAINT: Recent TIA, now in ARU. 84yo man with a history of CAD, HTN, CKD3, Parkinson's disease with a baseline tremor, COPD, HLD, PAD, IDDM, chronic diastolic CHF who presented to [facility] ED with acute aphasia where non contrast CT head showed no acute intracranial pathology but there was concern for CVA and was transferred to [facility] for further management. On arrival to [facility], he had an MRI that also was negative for an acute infarct and had a TTE that showed no evidence of shunting and he was officially diagnosed with a TIA. He was started on ASA81 and plavix was reduced to every other day because he had easy bruising and various ecchymoses. He worked with physical therapy, in the meantime neurology while inpatient started Sinemet that was c/b altered mentation and it was discontinued. He had functional impairments below his baseline level of function and after evaluation was deemed appropriate for admission for acute rehabilitation. He was discharged to [facility] ARU on 06/05/2020 where he has been doing well. Internal medicine is consulted for medical evaluation. He denies any recent fever, chills, cough, shortness of breath, LE edema, palpitation, new asymmetric weakness. He has a baseline UE tremor that he reports to be at his baseline. His feels that his strength is slowly getting better as he has been weak but PT is going well and he is encouraged. When I spoke with him, he was concerned about the timing of his second covid-19 vaccine that will be due within the next week or so and we discussed that it will likely be delayed by a few weeks. REVIEW OF SYSTEMS: 10 point ROS was completed and was grossly negative except as described in the HPI. PAST MEDICAL HISTORY: CAD HTN CKD3 Parkinson's disease with a baseline tremor COPD HLD PAD IDDM chronic diastolic CHF PAST SURGICAL HISTORY: Cataract surgery Ear surgery Esophageal stricture dilation Cardiac PCI x 7 Hernia repair L leg stents ALLERGIES: Please see below. MEDICATIONS: Please see below. FAMILY HISTORY: Carcinomas - Mother, 2 sisters CAD - Father, 2 brothers SOCIAL HISTORY: former smoker occasional etoh no illicit drugs PHYSICAL EXAMINATION: VITAL SIGNS: Please see below. GENERAL: Pleasant and cooperative. No acute distress. Sitting up in the chair, speaking with his . HEENT: NCAT, PERRLA, EOMI, anicteric, MMM CARDIOVASCULAR: Regular rate and rhythm. No m/r/g LUNGS: CTAB, breathing comfortably on room air, no wheezing, rales or rhonchi. ABDOMEN: Normoactive bowel sounds, soft, nontender, nondistended, nontender NEUROLOGICAL: Alert and oriented to self only, redirectable, follows commands well, CN 2-12 grossly intact, moving all extremities without asymmetrical weakness. Has bilateral UE tremor. EXTREMITIES: WWP, no noted edema LABORATORY DATA: Reviewed WBC 7.8 Hgb 12.9 platelets 220 Na 140 K 3.9 Cr 1.83 IMAGING: [facility] TTE: The left ventricle is mildly dilated and normal and wall thickness. There is global hypokinesis of the left ventricle present. Segmental wall motion cannot be assessed due to poor image quality. Visually estimated ejection fraction 35%. No evidence of shunting on bubble study. ASSESSMENT: 84-year-old M with a history HTN, DM, HLD, Parkinson's, who recently had his first covid-19 vaccine who was admitted at [facility] for a TIA, now in the ARU for rehabilitation. PLAN: TIA with a history artherosclerotic disease wtih CAD and PVD -CT head and MRI/MRA were negative -continue ASA 81 daily -continue Q2D plavix -continue lipitor 40 QD CAD, PVD -continue ASA 81 daily -continue Q2D plavix -continue lipitor 40 QD HTN: -continue amlodipine 5 QD -continue hydral 25 Q6H HFrEF: -continue aldactone 12.5 QD GERD: -continue protonix DM: -continue levemir 5u QHS and SSI AC/HS -continue home januvia -FSBG AC/HS -hypoglycemia protocol Tremor: -continue propanolol Dementia, suspected to be Lewy body at [facility]: -continue seroquel 25 QHS COPD: -continue home spiriva Gout: -continue home allopurinol DVT ppx: TEDs and sequentials Dispo: per PM&R Vital Signs Vital Signs Date Time Temp Pulse Resp B/P (MAP) Pulse Ox O2 Delivery O2 Flow Rate FiO2 06/09/20 14:00 97.6 87 18 176/81 (112) 97 Room Air Laboratory Data Labs 24H Laboratory Tests 2 06/08/20 16:50: Bedside Glucose (Misc Panel) 123H 06/08/20 20:48: Bedside Glucose (Misc Panel) 176H 06/09/20 05:30: Bedside Glucose (Misc Panel) 136H 06/09/20 06:07: Immature Granulocyte % (Auto) 0.6, Neutrophils (%) (Auto) 65.9, Lymphocytes (%) (Auto) 18.6L, Monocytes (%) (Auto) 13.1H, Eosinophils (%) (Auto) 1.4, Basophils (%) (Auto) 0.4, Neutrophils # (Auto) 5.1, Lymphocytes # (Auto) 1.5, Monocytes # (Auto) 1.0H, Eosinophils # (Auto) 0.1, Basophils # (Auto) 0.0, Nucleated Red Blood Cells % (auto) 0.0, Anion Gap 8, Glomerular Filtration Rate 37.9, Calcium Level 9.8 06/09/20 11:27: Bedside Glucose (Misc Panel) 160H CBC/BMP Laboratory Tests 06/09/20 06:07 Home Medications Scheduled Allopurinol (Allopurinol) 100 Mg Tablet, 100 MG PO DAILY Amlodipine Besylate (Norvasc) 5 Mg Tab, 5 MG PO DAILY DECREASED FROM 10MG AT [facility] Aspirin (Aspirin EC) 81 Mg Tablet.dr, 81 MG PO DAILY Atorvastatin Calcium (Atorvastatin Calcium) 40 Mg Tablet, 40 MG PO DAILY INCREASED FROM 20MG AT [facility] Budesonide (Budesonide EC) 3 Mg Capdr...er, 3 MG PO BID Clopidogrel Bisulfate (Clopidogrel) 75 Mg Tab, 75 MG PO DAILY Docusate Sodium (Colace) 100 Mg Capsule, 100 MG PO BID Doxepin HCl (Doxepin HCl) 100 Mg Capsule, 100 MG PO QHS Fluticasone/Vilanterol (Breo Ellipta 200-25 Mcg INH) 1 Inh Inh, 1 PUFF INH DAILY RECEIVED SYMBICORT 80/4.5 AT [facility] Insulin Glargine,Hum.rec.anlog (Lantus Solostar) 100 Unit/1 Ml Insuln.pen, 10 UNIT SC QHS Insulin Human Lispro (Humalog) 100 Unit/1 Ml Vial, 1 DOSE SC AC PER SLIDING SCALE L.acidoph/L.bulg/B.bif/S.therm (Bacid Caplet) 1 Each Tablet, 1 TAB PO DAILY Multivit-Min/FA/Lycopen/Lutein (Centrum Silver Tablet) 1 Each Tablet, 1 TAB PO DAILY Pantoprazole Sodium (Pantoprazole Sodium) 40 Mg Tablet.dr, 40 MG PO DAILY Polyethylene Glycol 3350 (Miralax) 119 Gm Powder, 17 GM PO DAILY Propranolol HCl (Propranolol HCl) 10 Mg Tablet, 10 MG PO TID Repaglinide (Repaglinide) 1 Mg Tab, 2 MG PO TID Sitagliptin (Januvia) 50 Mg Tablet, 50 MG PO DAILY Spironolactone (Spironolactone) 25 Mg Tablet, 12.5 MG PO DAILY Umeclidinium [place]ina (Incruse Ellipta) 62.5 Mcg/Inh Inh, 1 PUFF INH DAILY Scheduled PRN Sennosides (Senna Lax) 8.6 Mg Tablet, 17.2 MG PO QHS PRN for CONSTIPATION Allergies Coded Allergies: cephalexin (Verified Allergy, Mild, 09/29/19) alprazolam (Verified Allergy, Unknown, 06/05/20) A-FIB/CHADSVASC A-FIB History Current/History of A-Fib/PAF?: No Current PO Anticoag Therapy: No Age/Risk Factor Scoring CHADSVASC: CHADSVASC Response (Comments) Value Age Risk Factor Age >/= 75 years old 2 Gender Risk Factor Male 0 Hx of CHF Yes 1 Hx of HTN Yes 1 Hx of Stroke/TIA/or VTE Yes 2 Hx of Diabetes Yes 1 Hx of Vascular Disease Yes 1 Total 8 Treatment Treatment ordered: NONE Reason Anticoagulant not given: Not indicated/[id number] GABI MURRAY MD Jun 09, 2020 16:04
[2020-06-09 17:33] VITALS: BP 136/77
[2020-06-09 20:00] VITALS: BP 158/70
[2020-06-09] MEDS: SENNA 8.6 MG TAB (SENOKOT) PO SCH (20:55)
[2020-06-09] MEDS: LEVEMIR (INSULIN DETEMIR) 1 UNITS/0.01ML SC SCH (20:55)
[2020-06-09] MEDS: QUEtiapine FUMARATE 25 MG TAB PO SCH (20:55)
[2020-06-10 00:09] VITALS: BP 174/87
[2020-06-10] MEDS: **hydrALAZINE HCL** 25 MG TAB PO SCH ×5 (00:11→23:51)
[2020-06-10 05:19] VITALS: BP 135/70
[2020-06-10] MEDS: SYMBICORT 80/4.5MCG INHALER 6GM INH SCH ×2 (07:32→20:00)
[2020-06-10] MEDS: TIOTROPIUM INHALER/CAPSULE (SPIRIVA) INH SCH (07:32)
[2020-06-10] MEDS: IPRATROPIUM 0.5MG/ALBUTEROL 2.5MG INH SOL UD 3ML (DUONEB) NEB SCH ×3 (07:33→20:00)
[2020-06-10] MEDS: BUDESONIDE EC 3 MG CAP (ENTOCORT EC) PO SCH ×2 (08:06→23:51)
[2020-06-10] MEDS: amLODIPine 5 MG TAB PO SCH (08:06)
[2020-06-10] MEDS: LACTOBACILLUS ACIDOPHILUS CAP (BACID) PO SCH ×3 (08:06→21:05)
[2020-06-10] MEDS: DOCUSATE SODIUM 100MG CAPSULE PO SCH ×2 (08:06→21:05)
[2020-06-10] MEDS: MULTIVITAMINS/MINERALS THERAP 1 TAB PO SCH (08:06)
[2020-06-10] MEDS: SITagliptin 50 MG TAB (JANUVIA) PO SCH (08:06)
[2020-06-10] MEDS: ASPIRIN 81MG ENTERIC TABLET PO SCH (08:06)
[2020-06-10] MEDS: PANTOPRAZOLE 40MG TAB (PROTONIX) PO SCH (08:06)
[2020-06-10] MEDS: ATORVASTATIN 20 MG TAB PO SCH (08:07)
[2020-06-10] MEDS: SPIRONOLACTONE 12.5MG PER 1/2 TABLET PO SCH (08:07)
[2020-06-10] MEDS: PROPRANOLOL 10 MG TAB PO SCH ×3 (08:07→21:05)
[2020-06-10] MEDS: HumaLOG INSULIN (NovoLOG) PER UNIT SC SCH ×4 (08:07→21:00)
[2020-06-10] MEDS: allopurinoL 100 MG TAB PO SCH (08:07)
[2020-06-10] MEDS: MAGIC MOUTHWASH SUSPENSION BTL SSP SCH ×3 (08:08→17:17)
[2020-06-10] MEDS: FLUTICASONE PROP 0.05% NASAL SPRAY 16 GM (FLONASE) NARES SCH ×2 (08:08→21:06)
[2020-06-10] MEDS: REMEDY PHYTOPLEX Z-GUARD PASTE 113GM TUBE (FROM STOREROOM PRODUCT) TOP SCH ×3 (08:09→21:06)
--- NOTE | 2020-06-10 11:36 | IPNPDOC ---
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 REVIEW OF SYSTEMS: The following is a completed review of systems and has been reviewed. Review of systems otherwise unremarkable. PAIN: Patient self reports no pain EYES: No recent vision changes EARS, NOSE, & THROAT: No throat pain, or dysphagia, or rhinorrhea CARDIOVASCULAR: Denies chest pain or palpitations PULMONARY: Denies shortness of breath GASTROINTESTINAL: Denies constipation/diarrhea GENITOURINARY: denies dysuria MUSCULOSKELETAL: generalized weakness NEUROLOGICAL: denies parethesias, +UE tremor HEMATOLOGICAL: +easy bruising SKIN: no rash, scattered ecchymosis PSYCHIATRIC: +confused All other review of systems found to be negative. PHYSICAL EXAMINATION: VITAL SIGNS: Please see below. GENERAL: Pleasant and cooperative. No acute distress. HEENT: PERRL. Extraocular movements intact. Clear conjunctiva, dry oral mucosa CARDIOVASCULAR: Regular rate and rhythm. No murmurs, rubs, or gallops LUNGS: Clear to auscultation bilaterally. No wheezes. No rhonchi ABDOMEN: Soft, nontender, nondistended. Positive bowel sounds. Normal active bowel sounds NEUROLOGICAL: Alert and oriented to self only, able to follow directions and name object. Cranial nerves II through XII grossly intact. Sensation grossly intact +masked faces, bilat UE tremor EXTREMITIES: 5\5 strength bilateral upper extremities. 5\5 strength right lower extremity. 5/5 strength in left lower extremity. SKIN: scattered ecchymosis ASSESSMENT:84-year-old M with past medical history of HTN, DM, HLD, untreated parkinsons who presents status post TIA PLAN: 1. 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 Neuro s/p TIA c/u ASA, PLAVIX q2d and statin for secondary stroke prevention -bilat UE tremors with bradykinesia with hx of questionable hx of parkinsons that has not been treated as patient unable to tolerate Sinemet due to delirium, c/u propranolol for tremor -Seroqeul 25qhs started at [facility] for suspected Lewy Body dementia 3. cardiac- - systolic CHF wuth EF 35%, fluid restrict, weigh daily, c/u spironolactone - HTN- c/u amlodipine - CAD c/u asa - HLD- c/u statin 4. Resp- hx of COPD c/u breathing treatments, 02 prn, monitor for infection 5. endo- hx of DM c.u januvia, levemir, and ISS adjust prn 6. DVT ppx- teds, will avoid heparin as patient with full body ecchymosis 7. GI ppx- protonix 8. - patient reporting increased frequency in urination, will order UA/Ucx 8. Dispo- 06-12-20 to home Allergies Coded Allergies: cephalexin (Verified Allergy, Mild, 09/29/19) alprazolam (Verified Allergy, Unknown, 06/05/20) Vital Signs Vital Signs Date Time Temp Pulse Resp B/P (MAP) Pulse Ox O2 Delivery O2 Flow Rate FiO2 06/10/20 08:07 86 135/70 06/10/20 05:19 99.8 17 96 Room Air Laboratory Data Labs 24H Laboratory Tests 2 06/09/20 16:33: Bedside Glucose (Misc Panel) 93 06/09/20 19:24: Bedside Glucose (Misc Panel) 194H 06/10/20 04:41: Bedside Glucose (Misc Panel) 137H Current Medications Current Medications Current Medications Medications (Trade) Dose Ordered Sig/Tracey Route PRN Reason Start Time Stop Time Status Last Admin Dose Admin Acetaminophen (Tylenol Tab) 650 mg Q4HP PRN PO fever/MILD PAIN (PS 1-4) 06/05/20 14:55 Albuterol/ Ipratropium (Duoneb (Ipr 0.5mg/Alb 2.5mg)) 3 ml RTID NEB 06/05/20 20:00 06/09/20 19:39 Allopurinol (Zyloprim) 100 mg DAILY PO 06/06/20 09:00 06/10/20 08:07 Amlodipine Besylate (Norvasc) 5 mg DAILY PO 06/06/20 09:00 06/10/20 08:06 Aspirin (Ecotrin) 81 mg DAILY PO 06/06/20 09:00 06/10/20 08:06 Atorvastatin Calcium (Lipitor) 40 mg DAILY PO 06/06/20 09:00 06/10/20 08:07 Bisacodyl (Dulcolax Suppository) 10 mg DAILYPRN PRN [place] CONSTIPATION 06/05/20 14:55 Budesonide (Entocort Ec) 3 mg BID PO 06/05/20 21:00 06/10/20 08:06 Budesonide/ Formoterol Fumarate (Symbicort 80/ 4.5mcg) 2 puff RBID INH 06/06/20 20:00 06/10/20 07:32 Clopidogrel Bisulfate (PLAVix) 75 mg Q2D@0900 PO 06/07/20 09:00 06/09/20 08:31 Dextrose (Dextrose 50%) 25 ml ASDIRECTED PRN IV SEE LABEL COMMENTS 06/05/20 14:55 Docusate Sodium (Colace) 100 mg BID PO 06/05/20 21:00 06/10/20 08:06 Fluticasone Propionate (Flonase 0.05% Nasal [place]) 1 spray BID NARES 06/05/20 21:00 06/10/20 08:08 Fluticasone Propionate (Flovent Hfa 220mcg) 2 puff RBID INH 06/05/20 20:00 06/06/20 08:13 DC 06/06/20 07:12 Glucagon (Glucagon) 1 mg ASDIRECTED PRN SC SEE LABEL COMMENTS 06/05/20 14:55 Glucose (Glucose) 16 GM ASDIRECTED PRN PO SEE LABEL COMMENTS 06/05/20 14:55 Heparin Sodium (Porcine) (Heparin) 5,000 units Q12H SC 06/05/20 14:55 06/05/20 15:33 DC Home Med (Med Rec Complete!) ASDIRECTED XX 06/05/20 15:45 06/05/20 15:47 DC Hydralazine HCl (Apresoline) 25 mg Q6H PO 06/08/20 18:00 06/10/20 00:11 Insulin Detemir (Levemir Insulin) 5 units QHS SC 06/05/20 21:00 06/09/20 20:55 Insulin Human Lispro (HumaLOG INSULIN) SEE PROTOCOL TABLE AC SC 06/05/20 17:30 06/10/20 08:07 Insulin Human Lispro (HumaLOG INSULIN) SEE PROTOCOL TABLE QHS SC 06/05/20 21:00 Lactobacillus Acidophilus (Bacid) 1 ea TID PO 06/05/20 16:00 06/10/20 08:06 Lidocaine/ Diphenhydr/Alum/ Mg/Simeth (Magic Mouthwash) 5ML AC SSP 06/05/20 17:30 06/10/20 08:08 Multivitamins (Theragram-M) 1 tab DAILY PO 06/06/20 09:00 06/10/20 08:06 Pantoprazole Sodium (Protonix) 40 mg DAILY PO 06/06/20 09:00 06/10/20 08:06 Propranolol HCl (Inderal) 10 mg TID PO 06/05/20 16:00 06/10/20 08:07 Quetiapine Fumarate (SEROquel) 25 mg QHS PO 06/05/20 21:00 06/09/20 20:55 Senna (Senokot) 1 tab QHS PO 06/05/20 21:00 06/09/20 20:55 Sitagliptin Phosphate (Januvia) 50 mg DAILY PO 06/06/20 09:00 06/10/20 08:06 Spironolactone (Aldactone) 12.5 mg DAILY PO 06/06/20 09:00 06/10/20 08:07 Tiotropium [place] (Spiriva Handihaler) 1 inhalation DAILY@08 INH 06/06/20 08:00 06/10/20 07:32 SEAN WARNER MD Jun 10, 2020 11:36
[2020-06-10 14:00] VITALS: BP 132/82
[2020-06-10] MEDS: QUEtiapine FUMARATE 25 MG TAB PO SCH (21:05)
[2020-06-10] MEDS: SENNA 8.6 MG TAB (SENOKOT) PO SCH (21:05)
[2020-06-10] MEDS: LEVEMIR (INSULIN DETEMIR) 1 UNITS/0.01ML SC SCH (21:06)
[2020-06-10 22:00] VITALS: BP 145/76
[2020-06-11 05:00] VITALS: BP 140/72
[2020-06-11] MEDS: **hydrALAZINE HCL** 25 MG TAB PO SCH ×4 (05:20→23:41)
[2020-06-11 06:27] LABS: BASO % 0.3 % (0.0-1.0); EOS # 0.2 10^3/uL (0.0-0.5); EOS % 1.9 % (0.0-3.0); HEMATOCRIT 37.3 % (42.0-52.0); HEMOGLOBIN 12.5 g/dl (13.5-17.5); LYMPH # 1.4 10^3/uL (1.5-5.0); LYMPH % 18.1 % (24.0-44.0); MEAN CORPUSCULAR HEMOGLOBIN 31.9 pg (27.0-33.0); MEAN CORPUSCULAR HGB CONC 33.5 g/dl (32.0-36.5); MEAN CORPUSCULAR VOLUME 95.2 fl (80.0-96.0); MONO % 12.8 % (2.0-8.0); NEUTROPHILS # 5.2 10^3/uL (1.5-8.5); PLATELET COUNT, AUTOMATED 206 10^3/uL (150-450); RED BLOOD COUNT 3.92 10^6/uL (4.30-6.10); WHITE BLOOD COUNT 7.9 10^3/uL (4.0-10.0)
[2020-06-11 06:57] LABS: CALCIUM LEVEL 9.6 MG/DL (8.8-10.2); CREATININE FOR GFR 1.81 MG/DL (0.70-1.30); GLOMERULAR FILTRATION RATE 38.4 (>35); POTASSIUM SERUM 4.1 MEQ/L (3.5-5.1)
[2020-06-11] MEDS: IPRATROPIUM 0.5MG/ALBUTEROL 2.5MG INH SOL UD 3ML (DUONEB) NEB SCH ×4 (07:36→20:58)
[2020-06-11] MEDS: SYMBICORT 80/4.5MCG INHALER 6GM INH SCH ×2 (07:36→20:58)
[2020-06-11] MEDS: TIOTROPIUM INHALER/CAPSULE (SPIRIVA) INH SCH (07:36)
[2020-06-11] MEDS: HumaLOG INSULIN (NovoLOG) PER UNIT SC SCH ×4 (09:18→20:51)
[2020-06-11] MEDS: allopurinoL 100 MG TAB PO SCH (09:19)
[2020-06-11] MEDS: MAGIC MOUTHWASH SUSPENSION BTL SSP SCH ×3 (09:19→17:20)
[2020-06-11] MEDS: BUDESONIDE EC 3 MG CAP (ENTOCORT EC) PO SCH ×2 (09:19→20:49)
[2020-06-11] MEDS: FLUTICASONE PROP 0.05% NASAL SPRAY 16 GM (FLONASE) NARES SCH ×2 (09:19→20:51)
[2020-06-11] MEDS: SITagliptin 50 MG TAB (JANUVIA) PO SCH (09:20)
[2020-06-11] MEDS: PANTOPRAZOLE 40MG TAB (PROTONIX) PO SCH (09:20)
[2020-06-11] MEDS: DOCUSATE SODIUM 100MG CAPSULE PO SCH ×2 (09:20→20:50)
[2020-06-11] MEDS: LACTOBACILLUS ACIDOPHILUS CAP (BACID) PO SCH ×3 (09:20→20:49)
[2020-06-11] MEDS: ATORVASTATIN 20 MG TAB PO SCH (09:20)
[2020-06-11] MEDS: MULTIVITAMINS/MINERALS THERAP 1 TAB PO SCH (09:20)
[2020-06-11] MEDS: CLOPIDOGREL 75 MG TAB PO SCH (09:20)
[2020-06-11] MEDS: ASPIRIN 81MG ENTERIC TABLET PO SCH (09:20)
[2020-06-11] MEDS: amLODIPine 5 MG TAB PO SCH (09:20)
[2020-06-11] MEDS: SPIRONOLACTONE 12.5MG PER 1/2 TABLET PO SCH (09:20)
[2020-06-11] MEDS: PROPRANOLOL 10 MG TAB PO SCH ×3 (09:20→20:50)
[2020-06-11] MEDS: REMEDY PHYTOPLEX Z-GUARD PASTE 113GM TUBE (FROM STOREROOM PRODUCT) TOP SCH ×3 (09:21→20:51)
--- NOTE | 2020-06-11 12:37 | IPNPDOC ---
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 REVIEW OF SYSTEMS: The following is a completed review of systems and has been reviewed. Review of systems otherwise unremarkable. PAIN: Patient self reports no pain EYES: No recent vision changes EARS, NOSE, & THROAT: No throat pain, or dysphagia, or rhinorrhea CARDIOVASCULAR: Denies chest pain or palpitations PULMONARY: Denies shortness of breath GASTROINTESTINAL: Denies constipation/diarrhea GENITOURINARY: denies dysuria MUSCULOSKELETAL: generalized weakness NEUROLOGICAL: denies parethesias, +UE tremor HEMATOLOGICAL: +easy bruising SKIN: no rash, scattered ecchymosis PSYCHIATRIC: +confused All other review of systems found to be negative. PHYSICAL EXAMINATION: VITAL SIGNS: Please see below. GENERAL: Pleasant and cooperative. No acute distress. HEENT: PERRL. Extraocular movements intact. Clear conjunctiva, dry oral mucosa CARDIOVASCULAR: Regular rate and rhythm. No murmurs, rubs, or gallops LUNGS: Clear to auscultation bilaterally. No wheezes. No rhonchi ABDOMEN: Soft, nontender, nondistended. Positive bowel sounds. Normal active bowel sounds NEUROLOGICAL: Alert and oriented to self only, able to follow directions and name object. Cranial nerves II through XII grossly intact. Sensation grossly intact +masked faces, bilat UE tremor EXTREMITIES: 5\5 strength bilateral upper extremities. 5\5 strength right lower extremity. 5/5 strength in left lower extremity. SKIN: scattered ecchymosis ASSESSMENT:84-year-old M with past medical history of HTN, DM, HLD, untreated parkinsons who presents status post TIA PLAN: 1. 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 Neuro s/p TIA c/u ASA, PLAVIX q2d and statin for secondary stroke prevention -bilat UE tremors with bradykinesia with hx of questionable hx of parkinsons that has not been treated as patient unable to tolerate Sinemet due to delirium, c/u propranolol for tremor -Seroqeul 25qhs started at [facility] for suspected Lewy Body dementia 3. cardiac- - systolic CHF wuth EF 35%, fluid restrict, weigh daily, c/u spironolactone - HTN- c/u amlodipine - CAD c/u asa - HLD- c/u statin 4. Resp- hx of COPD c/u breathing treatments, 02 prn, monitor for infection 5. endo- hx of DM c.u januvia, levemir, and ISS adjust prn 6. DVT ppx- teds, will avoid heparin as patient with full body ecchymosis 7. GI ppx- protonix 8. - patient reporting increased frequency in urination, UA negative 8. Dispo- 06-12-20 to home Allergies Coded Allergies: cephalexin (Verified Allergy, Mild, 09/29/19) alprazolam (Verified Allergy, Unknown, 06/05/20) Vital Signs Vital Signs Date Time Temp Pulse Resp B/P (MAP) Pulse Ox O2 Delivery O2 Flow Rate FiO2 06/11/20 11:52 158/74 06/11/20 09:20 85 06/11/20 05:00 97.9 18 96 Room Air Laboratory Data CBC/BMP Laboratory Tests 06/11/20 05:55 Labs 24H Laboratory Tests 2 06/10/20 16:37: Bedside Glucose (Misc Panel) 137H 06/10/20 19:45: Bedside Glucose (Misc Panel) 160H 06/11/20 00:50: Urine Color YELLOW, Urine Appearance CLEAR, Urine pH 5.0, Urine Specific Donie 1.014, Urine Protein NEGATIVE, Urine Glucose (UA) NEGATIVE, Urine Ketones NEGATIVE, Urine Blood NEGATIVE, Urine Nitrite NEGATIVE, Urine Bilirubin NEGATIVE, Urine Urobilinogen 0.2, Urine Leukocyte Esterase NEGATIVE, Urine WBC (Auto) 1, Urine RBC (Auto) 0, Urine Hyaline Casts (Auto) 0, Urine Bacteria (Auto) NEGATIVE, Urine Squamous Epithelial Cells 0, Urine Mucus (Auto) SMALL, Urine Sperm (Auto) 06/11/20 05:55: Immature Granulocyte % (Auto) 0.9, Neutrophils (%) (Auto) 66.0, Lymphocytes (%) (Auto) 18.1L, Monocytes (%) (Auto) 12.8H, Eosinophils (%) (Auto) 1.9, Basophils (%) (Auto) 0.3, Neutrophils # (Auto) 5.2, Lymphocytes # (Auto) 1.4L, Monocytes # (Auto) 1.0H, Eosinophils # (Auto) 0.2, Basophils # (Auto) 0.0, Nucleated Red Blood Cells % (auto) 0.0, Anion Gap 5L, Glomerular Filtration Rate 38.4, Calcium Level 9.6 06/11/20 11:27: Bedside Glucose (Misc Panel) 146H Current Medications Current Medications Current Medications Medications (Trade) Dose Ordered Sig/Tracey Route PRN Reason Start Time Stop Time Status Last Admin Dose Admin Acetaminophen (Tylenol Tab) 650 mg Q4HP PRN PO fever/MILD PAIN (PS 1-4) 06/05/20 14:55 Albuterol/ Ipratropium (Duoneb (Ipr 0.5mg/Alb 2.5mg)) 3 ml RTID NEB 06/05/20 20:00 06/10/20 20:00 Allopurinol (Zyloprim) 100 mg DAILY PO 06/06/20 09:00 06/11/20 09:19 Amlodipine Besylate (Norvasc) 5 mg DAILY PO 06/06/20 09:00 06/11/20 09:20 Aspirin (Ecotrin) 81 mg DAILY PO 06/06/20 09:00 06/11/20 09:20 Atorvastatin Calcium (Lipitor) 40 mg DAILY PO 06/06/20 09:00 06/11/20 09:20 Bisacodyl (Dulcolax Suppository) 10 mg DAILYPRN PRN OR CONSTIPATION 06/05/20 14:55 Budesonide (Entocort Ec) 3 mg BID PO 06/05/20 21:00 06/11/20 09:19 Budesonide/ Formoterol Fumarate (Symbicort 80/ 4.5mcg) 2 puff RBID INH 06/06/20 20:00 06/11/20 07:36 Clopidogrel Bisulfate (PLAVix) 75 mg Q2D@0900 PO 06/07/20 09:00 06/11/20 09:20 Dextrose (Dextrose 50%) 25 ml ASDIRECTED PRN IV SEE LABEL COMMENTS 06/05/20 14:55 Docusate Sodium (Colace) 100 mg BID PO 06/05/20 21:00 06/11/20 09:20 Fluticasone Propionate (Flonase 0.05% Nasal [place]) 1 spray BID NARES 06/05/20 21:00 06/11/20 09:19 Fluticasone Propionate (Flovent Hfa 220mcg) 2 puff RBID INH 06/05/20 20:00 06/06/20 08:13 DC 06/06/20 07:12 Glucagon (Glucagon) 1 mg ASDIRECTED PRN SC SEE LABEL COMMENTS 06/05/20 14:55 Glucose (Glucose) 16 GM ASDIRECTED PRN PO SEE LABEL COMMENTS 06/05/20 14:55 Heparin Sodium (Porcine) (Heparin) 5,000 units Q12H SC 06/05/20 14:55 06/05/20 15:33 DC Home Med (Med Rec Complete!) ASDIRECTED XX 06/05/20 15:45 06/05/20 15:47 DC Hydralazine HCl (Apresoline) 25 mg Q6H PO 06/08/20 18:00 06/11/20 11:52 Insulin Detemir (Levemir Insulin) 5 units QHS SC 06/05/20 21:00 06/10/20 21:06 Insulin Human Lispro (HumaLOG INSULIN) SEE PROTOCOL TABLE AC SC 06/05/20 17:30 06/11/20 11:52 Insulin Human Lispro (HumaLOG INSULIN) SEE PROTOCOL TABLE QHS SC 06/05/20 21:00 Lactobacillus Acidophilus (Bacid) 1 ea TID PO 06/05/20 16:00 06/11/20 09:20 Lidocaine/ Diphenhydr/Alum/ Mg/Simeth (Magic Mouthwash) 5ML AC SSP 06/05/20 17:30 06/11/20 11:52 Multivitamins (Theragram-M) 1 tab DAILY PO 06/06/20 09:00 06/11/20 09:20 Pantoprazole Sodium (Protonix) 40 mg DAILY PO 06/06/20 09:00 06/11/20 09:20 Propranolol HCl (Inderal) 10 mg TID PO 06/05/20 16:00 06/11/20 09:20 Quetiapine Fumarate (SEROquel) 25 mg QHS PO 06/05/20 21:00 06/10/20 21:05 Senna (Senokot) 1 tab QHS PO 06/05/20 21:00 06/10/20 21:05 Sitagliptin Phosphate (Januvia) 50 mg DAILY PO 06/06/20 09:00 06/11/20 09:20 Spironolactone (Aldactone) 12.5 mg DAILY PO 06/06/20 09:00 06/11/20 09:20 Tiotropium [place] (Spiriva Handihaler) 1 inhalation DAILY@08 INH 06/06/20 08:00 06/11/20 07:36 SEAN WARNER MD Jun 11, 2020 12:37
[2020-06-11] MEDS ORDERED: SITA50TAB PO (12:47)
[2020-06-11] MEDS ORDERED: ASPI-161 PO (12:47)
[2020-06-11] MEDS ORDERED: ALLO10TA PO (12:47)
[2020-06-11] MEDS ORDERED: BUDE3CAP PO (12:47)
[2020-06-11] MEDS ORDERED: INCR1INH INH (12:47)
[2020-06-11] MEDS ORDERED: PANT-23 PO (12:47)
[2020-06-11] MEDS ORDERED: CLOP75TA2 PO (12:47)
[2020-06-11] MEDS ORDERED: PROP10TA56 PO (12:47)
[2020-06-11] MEDS ORDERED: BACITAB PO (12:47)
[2020-06-11] MEDS ORDERED: SPIR-10 PO (12:47)
[2020-06-11] MEDS ORDERED: NORV5TAB PO (12:47)
[2020-06-11] MEDS ORDERED: ATOR40TA75 PO (12:47)
[2020-06-11 14:00] VITALS: BP 140/81
[2020-06-11 20:00] VITALS: BP 136/67
[2020-06-11] MEDS: SENNA 8.6 MG TAB (SENOKOT) PO SCH (20:49)
[2020-06-11] MEDS: QUEtiapine FUMARATE 25 MG TAB PO SCH (20:50)
[2020-06-11] MEDS: LEVEMIR (INSULIN DETEMIR) 1 UNITS/0.01ML SC SCH (20:50)
[2020-06-12] MEDS: **hydrALAZINE HCL** 25 MG TAB PO SCH ×3 (05:44→17:26)
[2020-06-12 06:00] VITALS: BP 140/66
[2020-06-12] MEDS: SYMBICORT 80/4.5MCG INHALER 6GM INH SCH ×2 (07:45→20:39)
[2020-06-12] MEDS: TIOTROPIUM INHALER/CAPSULE (SPIRIVA) INH SCH (07:45)
[2020-06-12] MEDS: IPRATROPIUM 0.5MG/ALBUTEROL 2.5MG INH SOL UD 3ML (DUONEB) NEB SCH ×3 (07:45→20:39)
[2020-06-12] MEDS: SPIRONOLACTONE 12.5MG PER 1/2 TABLET PO SCH (08:38)
[2020-06-12] MEDS: BUDESONIDE EC 3 MG CAP (ENTOCORT EC) PO SCH ×2 (08:38→21:12)
[2020-06-12] MEDS: LACTOBACILLUS ACIDOPHILUS CAP (BACID) PO SCH ×3 (08:38→21:12)
[2020-06-12] MEDS: MULTIVITAMINS/MINERALS THERAP 1 TAB PO SCH (08:38)
[2020-06-12] MEDS: ASPIRIN 81MG ENTERIC TABLET PO SCH (08:39)
[2020-06-12] MEDS: allopurinoL 100 MG TAB PO SCH (08:40)
[2020-06-12] MEDS: ATORVASTATIN 20 MG TAB PO SCH (08:40)
[2020-06-12] MEDS: PROPRANOLOL 10 MG TAB PO SCH ×3 (08:40→21:13)
[2020-06-12] MEDS: amLODIPine 5 MG TAB PO SCH (08:40)
[2020-06-12] MEDS: DOCUSATE SODIUM 100MG CAPSULE PO SCH ×2 (08:41→21:12)
[2020-06-12] MEDS: FLUTICASONE PROP 0.05% NASAL SPRAY 16 GM (FLONASE) NARES SCH ×2 (08:41→21:14)
[2020-06-12] MEDS: SITagliptin 50 MG TAB (JANUVIA) PO SCH (08:41)
[2020-06-12] MEDS: PANTOPRAZOLE 40MG TAB (PROTONIX) PO SCH (08:41)
[2020-06-12] MEDS: MAGIC MOUTHWASH SUSPENSION BTL SSP SCH ×3 (08:41→17:26)
[2020-06-12] MEDS: REMEDY PHYTOPLEX Z-GUARD PASTE 113GM TUBE (FROM STOREROOM PRODUCT) TOP SCH ×3 (08:42→21:14)
[2020-06-12] MEDS: HumaLOG INSULIN (NovoLOG) PER UNIT SC SCH ×4 (08:43→21:00)
--- NOTE | 2020-06-12 11:28 | IPNPDOC ---
PM&R Progress Note DATE OF SERVICE: Jun 12, 2020 Intelligence Support Officer Progress Note SUbjective: Patient was seen with his and requesting to stay on ARU a few more days so that the would have time to get the house set up for him. REVIEW OF SYSTEMS: The following is a completed review of systems and has been reviewed. Review of systems otherwise unremarkable. PAIN: Patient self reports no pain EYES: No recent vision changes EARS, NOSE, & THROAT: No throat pain, or dysphagia, or rhinorrhea CARDIOVASCULAR: Denies chest pain or palpitations PULMONARY: Denies shortness of breath GASTROINTESTINAL: Denies constipation/diarrhea GENITOURINARY: denies dysuria MUSCULOSKELETAL: generalized weakness NEUROLOGICAL: denies parethesias, +UE tremor HEMATOLOGICAL: +easy bruising SKIN: no rash, scattered ecchymosis PSYCHIATRIC: +confused All other review of systems found to be negative. PHYSICAL EXAMINATION: VITAL SIGNS: Please see below. GENERAL: Pleasant and cooperative. No acute distress. HEENT: PERRL. Extraocular movements intact. Clear conjunctiva, dry oral mucosa CARDIOVASCULAR: Regular rate and rhythm. No murmurs, rubs, or gallops LUNGS: Clear to auscultation bilaterally. No wheezes. No rhonchi ABDOMEN: Soft, nontender, nondistended. Positive bowel sounds. Normal active bowel sounds NEUROLOGICAL: Alert and oriented to self only, able to follow directions and name object. Cranial nerves II through XII grossly intact. Sensation grossly intact +masked faces, bilat UE tremor EXTREMITIES: 5\5 strength bilateral upper extremities. 5\5 strength right lower extremity. 5/5 strength in left lower extremity. SKIN: scattered ecchymosis ASSESSMENT:84-year-old M with past medical history of HTN, DM, HLD, untreated parkinsons who presents status post TIA PLAN: 1. 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 Neuro s/p TIA c/u ASA, PLAVIX q2d and statin for secondary stroke prevention -bilat UE tremors with bradykinesia with hx of questionable hx of parkinsons that has not been treated as patient unable to tolerate Sinemet due to delirium, c/u propranolol for tremor -Seroqeul 25qhs started at [facility] for suspected Lewy Body dementia 3. cardiac- - systolic CHF wuth EF 35%, fluid restrict, weigh daily, c/u spironolactone - HTN- c/u amlodipine - CAD c/u asa - HLD- c/u statin 4. Resp- hx of COPD c/u breathing treatments, 02 prn, monitor for infection 5. endo- hx of DM c.u januvia, levemir, and ISS adjust prn 6. DVT ppx- teds, will avoid heparin as patient with full body ecchymosis 7. GI ppx- protonix 8. - patient reporting increased frequency in urination, UA negative 8. Dispo- 06-16-20 to home, progressing towards goals- discussed patient's Lewy Body Dementia diagnosis and treatment plan with bedside Allergies Coded Allergies: cephalexin (Verified Allergy, Mild, 09/29/19) alprazolam (Verified Allergy, Unknown, 06/05/20) carbidopa (Verified Adverse Reaction, Intermediate, hallucinations, 06/12/20) levodopa (Verified Adverse Reaction, Intermediate, hallucinations, 06/12/20) Vital Signs Vital Signs Date Time Temp Pulse Resp B/P (MAP) Pulse Ox O2 Delivery O2 Flow Rate FiO2 06/12/20 08:40 72 178/81 06/12/20 06:00 97.3 18 95 Room Air Laboratory Data Labs 24H Laboratory Tests 2 06/11/20 16:18: Bedside Glucose (Misc Panel) 133H 06/11/20 20:18: Bedside Glucose (Misc Panel) 179H 06/12/20 08:01: Bedside Glucose (Misc Panel) 165H Current Medications Current Medications Current Medications Medications (Trade) Dose Ordered Sig/Tracey Route PRN Reason Start Time Stop Time Status Last Admin Dose Admin Acetaminophen (Tylenol Tab) 650 mg Q4HP PRN PO fever/MILD PAIN (PS 1-4) 06/05/20 14:55 Albuterol/ Ipratropium (Duoneb (Ipr 0.5mg/Alb 2.5mg)) 3 ml RTID NEB 06/05/20 20:00 06/11/20 20:58 Allopurinol (Zyloprim) 100 mg DAILY PO 06/06/20 09:00 06/12/20 08:40 Amlodipine Besylate (Norvasc) 5 mg DAILY PO 06/06/20 09:00 06/12/20 08:40 Aspirin (Ecotrin) 81 mg DAILY PO 06/06/20 09:00 06/12/20 08:39 Atorvastatin Calcium (Lipitor) 40 mg DAILY PO 06/06/20 09:00 06/12/20 08:40 Bisacodyl (Dulcolax Suppository) 10 mg DAILYPRN PRN [place] CONSTIPATION 06/05/20 14:55 Budesonide (Entocort Ec) 3 mg BID PO 06/05/20 21:00 06/12/20 08:38 Budesonide/ Formoterol Fumarate (Symbicort 80/ 4.5mcg) 2 puff RBID INH 06/06/20 20:00 06/12/20 07:45 Clopidogrel Bisulfate (PLAVix) 75 mg Q2D@0900 PO 06/07/20 09:00 06/11/20 09:20 Dextrose (Dextrose 50%) 25 ml ASDIRECTED PRN IV SEE LABEL COMMENTS 06/05/20 14:55 Docusate Sodium (Colace) 100 mg BID PO 06/05/20 21:00 06/12/20 08:41 Fluticasone Propionate (Flonase 0.05% Nasal Boring) 1 spray BID NARES 06/05/20 21:00 06/12/20 08:41 Fluticasone Propionate (Flovent Hfa 220mcg) 2 puff RBID INH 06/05/20 20:00 06/06/20 08:13 DC 06/06/20 07:12 Glucagon (Glucagon) 1 mg ASDIRECTED PRN SC SEE LABEL COMMENTS 06/05/20 14:55 Glucose (Glucose) 16 GM ASDIRECTED PRN PO SEE LABEL COMMENTS 06/05/20 14:55 Heparin Sodium (Porcine) (Heparin) 5,000 units Q12H SC 06/05/20 14:55 06/05/20 15:33 DC Home Med (Med Rec Complete!) ASDIRECTED XX 06/05/20 15:45 06/05/20 15:47 DC Hydralazine HCl (Apresoline) 25 mg Q6H PO 06/08/20 18:00 06/12/20 05:44 Insulin Detemir (Levemir Insulin) 5 units QHS SC 06/05/20 21:00 06/11/20 20:50 Insulin Human Lispro (HumaLOG INSULIN) SEE PROTOCOL TABLE AC SC 06/05/20 17:30 06/12/20 08:43 Insulin Human Lispro (HumaLOG INSULIN) SEE PROTOCOL TABLE QHS SC 06/05/20 21:00 Lactobacillus Acidophilus (Bacid) 1 ea TID PO 06/05/20 16:00 06/12/20 08:38 Lidocaine/ Diphenhydr/Alum/ Mg/Simeth (Magic Mouthwash) 5ML AC SSP 06/05/20 17:30 06/12/20 08:41 Multivitamins (Theragram-M) 1 tab DAILY PO 06/06/20 09:00 06/12/20 08:38 Pantoprazole Sodium (Protonix) 40 mg DAILY PO 06/06/20 09:00 06/12/20 08:41 Propranolol HCl (Inderal) 10 mg TID PO 06/05/20 16:00 06/12/20 08:40 Quetiapine Fumarate (SEROquel) 25 mg QHS PO 06/05/20 21:00 06/11/20 20:50 Senna (Senokot) 1 tab QHS PO 06/05/20 21:00 06/11/20 20:49 Sitagliptin Phosphate (Januvia) 50 mg DAILY PO 06/06/20 09:00 06/12/20 08:41 Spironolactone (Aldactone) 12.5 mg DAILY PO 06/06/20 09:00 06/12/20 08:38 Tiotropium [place] (Spiriva Handihaler) 1 inhalation DAILY@08 INH 06/06/20 08:00 06/12/20 07:45 SEAN WARNER MD Jun 12, 2020 11:28
[2020-06-12 14:00] VITALS: BP 168/84
[2020-06-12] MEDS: guaiFENesin 200 MG TAB PO SCH ×2 (17:26→21:12)
[2020-06-12 20:00] VITALS: BP 147/63
[2020-06-12] MEDS: SENNA 8.6 MG TAB (SENOKOT) PO SCH (21:12)
[2020-06-12] MEDS: QUEtiapine FUMARATE 25 MG TAB PO SCH (21:12)
[2020-06-12] MEDS: LEVEMIR (INSULIN DETEMIR) 1 UNITS/0.01ML SC SCH (21:13)
[2020-06-13 06:07] LABS: BASO % 0.4 % (0.0-1.0); EOS # 0.2 10^3/uL (0.0-0.5); EOS % 1.9 % (0.0-3.0); HEMATOCRIT 36.6 % (42.0-52.0); HEMOGLOBIN 12.5 g/dl (13.5-17.5); LYMPH # 1.6 10^3/uL (1.5-5.0); MEAN CORPUSCULAR HEMOGLOBIN 32.1 pg (27.0-33.0); MEAN CORPUSCULAR HGB CONC 34.2 g/dl (32.0-36.5); MEAN CORPUSCULAR VOLUME 94.1 fl (80.0-96.0); MONO # 0.9 10^3/uL (0.0-0.8); MONO % 11.4 % (2.0-8.0); NEUTROPHILS # 5.3 10^3/uL (1.5-8.5); NEUTROPHILS % 65.6 % (36.0-66.0); PLATELET COUNT, AUTOMATED 192 10^3/uL (150-450); RED BLOOD COUNT 3.89 10^6/uL (4.30-6.10)
[2020-06-13 06:18] VITALS: BP 150/69
[2020-06-13] MEDS: **hydrALAZINE HCL** 25 MG TAB PO SCH ×4 (06:24→16:44)
[2020-06-13 06:28] LABS: CALCIUM LEVEL 9.4 MG/DL (8.8-10.2); CREATININE FOR GFR 1.57 MG/DL (0.70-1.30); GLOMERULAR FILTRATION RATE 45.3 (>35); POTASSIUM SERUM 3.8 MEQ/L (3.5-5.1)
[2020-06-13] MEDS: TIOTROPIUM INHALER/CAPSULE (SPIRIVA) INH SCH (07:35)
[2020-06-13] MEDS: SYMBICORT 80/4.5MCG INHALER 6GM INH SCH ×2 (07:35→18:38)
[2020-06-13] MEDS: IPRATROPIUM 0.5MG/ALBUTEROL 2.5MG INH SOL UD 3ML (DUONEB) NEB SCH ×3 (08:00→18:38)
[2020-06-13] MEDS: MAGIC MOUTHWASH SUSPENSION BTL SSP SCH ×3 (08:56→16:43)
[2020-06-13] MEDS: HumaLOG INSULIN (NovoLOG) PER UNIT SC SCH ×4 (08:57→20:30)
[2020-06-13] MEDS: guaiFENesin 200 MG TAB PO SCH ×3 (08:57→20:28)
[2020-06-13] MEDS: SITagliptin 50 MG TAB (JANUVIA) PO SCH (08:58)
[2020-06-13] MEDS: ASPIRIN 81MG ENTERIC TABLET PO SCH (08:58)
[2020-06-13] MEDS: ATORVASTATIN 20 MG TAB PO SCH (08:58)
[2020-06-13] MEDS: CLOPIDOGREL 75 MG TAB PO SCH (08:58)
[2020-06-13] MEDS: DOCUSATE SODIUM 100MG CAPSULE PO SCH ×2 (08:58→20:28)
[2020-06-13] MEDS: BUDESONIDE EC 3 MG CAP (ENTOCORT EC) PO SCH ×2 (08:58→20:33)
[2020-06-13] MEDS: amLODIPine 5 MG TAB PO SCH (08:58)
[2020-06-13] MEDS: allopurinoL 100 MG TAB PO SCH (08:58)
[2020-06-13] MEDS: SPIRONOLACTONE 12.5MG PER 1/2 TABLET PO SCH (08:58)
[2020-06-13] MEDS: LACTOBACILLUS ACIDOPHILUS CAP (BACID) PO SCH ×3 (08:58→20:28)
[2020-06-13] MEDS: MULTIVITAMINS/MINERALS THERAP 1 TAB PO SCH (08:58)
[2020-06-13] MEDS: PANTOPRAZOLE 40MG TAB (PROTONIX) PO SCH (08:59)
[2020-06-13] MEDS: PROPRANOLOL 10 MG TAB PO SCH ×3 (08:59→20:28)
[2020-06-13] MEDS: FLUTICASONE PROP 0.05% NASAL SPRAY 16 GM (FLONASE) NARES SCH ×2 (08:59→20:35)
[2020-06-13] MEDS: REMEDY PHYTOPLEX Z-GUARD PASTE 113GM TUBE (FROM STOREROOM PRODUCT) TOP SCH ×3 (09:00→20:34)
[2020-06-13 14:00] VITALS: BP 153/72
[2020-06-13 20:00] VITALS: BP 166/80
[2020-06-13] MEDS: LEVEMIR (INSULIN DETEMIR) 1 UNITS/0.01ML SC SCH (20:27)
[2020-06-13] MEDS: QUEtiapine FUMARATE 25 MG TAB PO SCH (20:28)
[2020-06-13] MEDS: SENNA 8.6 MG TAB (SENOKOT) PO SCH (20:28)
[2020-06-13 23:59] VITALS: BP 154/70
[2020-06-14] MEDS: **hydrALAZINE HCL** 25 MG TAB PO SCH ×4 (00:13→17:33)
[2020-06-14 05:17] VITALS: BP 172/80
[2020-06-14] MEDS: IPRATROPIUM 0.5MG/ALBUTEROL 2.5MG INH SOL UD 3ML (DUONEB) NEB SCH ×3 (07:16→19:43)
[2020-06-14] MEDS: TIOTROPIUM INHALER/CAPSULE (SPIRIVA) INH SCH (07:17)
[2020-06-14] MEDS: SYMBICORT 80/4.5MCG INHALER 6GM INH SCH ×2 (07:17→19:43)
[2020-06-14] MEDS: HumaLOG INSULIN (NovoLOG) PER UNIT SC SCH ×4 (08:13→21:00)
[2020-06-14] MEDS: ASPIRIN 81MG ENTERIC TABLET PO SCH (08:13)
[2020-06-14] MEDS: BUDESONIDE EC 3 MG CAP (ENTOCORT EC) PO SCH ×2 (08:13→21:43)
[2020-06-14] MEDS: SITagliptin 50 MG TAB (JANUVIA) PO SCH (08:13)
[2020-06-14] MEDS: MAGIC MOUTHWASH SUSPENSION BTL SSP SCH ×3 (08:13→16:38)
[2020-06-14] MEDS: guaiFENesin 200 MG TAB PO SCH ×3 (08:13→21:43)
[2020-06-14] MEDS: LACTOBACILLUS ACIDOPHILUS CAP (BACID) PO SCH ×3 (08:14→21:43)
[2020-06-14] MEDS: MULTIVITAMINS/MINERALS THERAP 1 TAB PO SCH (08:14)
[2020-06-14] MEDS: amLODIPine 5 MG TAB PO SCH (08:14)
[2020-06-14] MEDS: PROPRANOLOL 10 MG TAB PO SCH ×3 (08:14→21:44)
[2020-06-14] MEDS: DOCUSATE SODIUM 100MG CAPSULE PO SCH ×2 (08:14→21:43)
[2020-06-14] MEDS: allopurinoL 100 MG TAB PO SCH (08:14)
[2020-06-14] MEDS: REMEDY PHYTOPLEX Z-GUARD PASTE 113GM TUBE (FROM STOREROOM PRODUCT) TOP SCH ×3 (08:15→21:44)
[2020-06-14] MEDS: PANTOPRAZOLE 40MG TAB (PROTONIX) PO SCH (08:15)
[2020-06-14] MEDS: FLUTICASONE PROP 0.05% NASAL SPRAY 16 GM (FLONASE) NARES SCH ×2 (08:15→21:45)
[2020-06-14] MEDS: ATORVASTATIN 20 MG TAB PO SCH (08:15)
[2020-06-14] MEDS: SPIRONOLACTONE 12.5MG PER 1/2 TABLET PO SCH (08:15)
[2020-06-14 14:00] VITALS: BP 168/77
[2020-06-14 20:00] VITALS: BP 175/84
[2020-06-14] MEDS: LEVEMIR (INSULIN DETEMIR) 1 UNITS/0.01ML SC SCH (21:42)
[2020-06-14] MEDS: SENNA 8.6 MG TAB (SENOKOT) PO SCH (21:43)
[2020-06-14] MEDS: QUEtiapine FUMARATE 25 MG TAB PO SCH (21:43)
[2020-06-15 00:10] VITALS: BP 142/65
[2020-06-15] MEDS: **hydrALAZINE HCL** 25 MG TAB PO SCH ×4 (00:13→18:00)
[2020-06-15 06:00] VITALS: BP 155/65
[2020-06-15] MEDS: IPRATROPIUM 0.5MG/ALBUTEROL 2.5MG INH SOL UD 3ML (DUONEB) NEB SCH ×3 (08:00→20:00)
[2020-06-15] MEDS: SPIRONOLACTONE 12.5MG PER 1/2 TABLET PO SCH (08:14)
[2020-06-15] MEDS: REMEDY PHYTOPLEX Z-GUARD PASTE 113GM TUBE (FROM STOREROOM PRODUCT) TOP SCH ×3 (08:14→21:14)
[2020-06-15] MEDS: LACTOBACILLUS ACIDOPHILUS CAP (BACID) PO SCH ×3 (08:14→21:14)
[2020-06-15] MEDS: ATORVASTATIN 20 MG TAB PO SCH (08:14)
[2020-06-15] MEDS: allopurinoL 100 MG TAB PO SCH (08:14)
[2020-06-15] MEDS: FLUTICASONE PROP 0.05% NASAL SPRAY 16 GM (FLONASE) NARES SCH ×2 (08:14→21:14)
[2020-06-15] MEDS: MAGIC MOUTHWASH SUSPENSION BTL SSP SCH ×3 (08:14→18:16)
[2020-06-15] MEDS: guaiFENesin 200 MG TAB PO SCH ×3 (08:14→21:14)
[2020-06-15] MEDS: PANTOPRAZOLE 40MG TAB (PROTONIX) PO SCH (08:14)
[2020-06-15] MEDS: ASPIRIN 81MG ENTERIC TABLET PO SCH (08:14)
[2020-06-15] MEDS: MULTIVITAMINS/MINERALS THERAP 1 TAB PO SCH (08:14)
[2020-06-15] MEDS: DOCUSATE SODIUM 100MG CAPSULE PO SCH ×2 (08:15→21:14)
[2020-06-15] MEDS: CLOPIDOGREL 75 MG TAB PO SCH (08:15)
[2020-06-15] MEDS: BUDESONIDE EC 3 MG CAP (ENTOCORT EC) PO SCH ×2 (08:15→21:13)
[2020-06-15] MEDS: SITagliptin 50 MG TAB (JANUVIA) PO SCH (08:15)
[2020-06-15] MEDS: HumaLOG INSULIN (NovoLOG) PER UNIT SC SCH ×4 (08:15→20:28)
[2020-06-15] MEDS: PROPRANOLOL 10 MG TAB PO SCH ×3 (08:18→21:13)
[2020-06-15] MEDS: TIOTROPIUM INHALER/CAPSULE (SPIRIVA) INH SCH (08:45)
[2020-06-15] MEDS: SYMBICORT 80/4.5MCG INHALER 6GM INH SCH ×2 (08:45→20:20)
[2020-06-15 14:00] VITALS: BP 189/81
[2020-06-15 20:00] VITALS: BP 164/84
[2020-06-15] MEDS: LEVEMIR (INSULIN DETEMIR) 1 UNITS/0.01ML SC SCH (21:13)
[2020-06-15] MEDS: QUEtiapine FUMARATE 25 MG TAB PO SCH (21:14)
[2020-06-15] MEDS: SENNA 8.6 MG TAB (SENOKOT) PO SCH (21:14)
[2020-06-15] MEDS ORDERED: AMLO1TAB25 PO (21:53)
[2020-06-16] MEDS: **hydrALAZINE HCL** 25 MG TAB PO SCH ×3 (00:29→12:00)
[2020-06-16 06:00] VITALS: BP 163/77
[2020-06-16] MEDS: IPRATROPIUM 0.5MG/ALBUTEROL 2.5MG INH SOL UD 3ML (DUONEB) NEB SCH (07:17)
[2020-06-16] MEDS: SYMBICORT 80/4.5MCG INHALER 6GM INH SCH (07:18)
[2020-06-16] MEDS: TIOTROPIUM INHALER/CAPSULE (SPIRIVA) INH SCH (07:19)
[2020-06-16] MEDS ORDERED: FLEET ENEMA PR ONE (09:00)
[2020-06-16] MEDS: LACTOBACILLUS ACIDOPHILUS CAP (BACID) PO SCH (09:07)
[2020-06-16] MEDS: HumaLOG INSULIN (NovoLOG) PER UNIT SC SCH ×2 (09:07→12:54)
[2020-06-16] MEDS: SITagliptin 50 MG TAB (JANUVIA) PO SCH (09:07)
[2020-06-16] MEDS: guaiFENesin 200 MG TAB PO SCH (09:07)
[2020-06-16] MEDS: allopurinoL 100 MG TAB PO SCH (09:07)
[2020-06-16] MEDS: SPIRONOLACTONE 12.5MG PER 1/2 TABLET PO SCH (09:07)
[2020-06-16] MEDS: ATORVASTATIN 20 MG TAB PO SCH (09:07)
[2020-06-16] MEDS: PANTOPRAZOLE 40MG TAB (PROTONIX) PO SCH (09:08)
[2020-06-16] MEDS: MULTIVITAMINS/MINERALS THERAP 1 TAB PO SCH (09:08)
[2020-06-16] MEDS: ASPIRIN 81MG ENTERIC TABLET PO SCH (09:08)
[2020-06-16] MEDS: PROPRANOLOL 10 MG TAB PO SCH (09:08)
[2020-06-16] MEDS: BUDESONIDE EC 3 MG CAP (ENTOCORT EC) PO SCH (09:08)
[2020-06-16] MEDS: DOCUSATE SODIUM 100MG CAPSULE PO SCH (09:08)
[2020-06-16] MEDS: FLUTICASONE PROP 0.05% NASAL SPRAY 16 GM (FLONASE) NARES SCH (09:09)
[2020-06-16] MEDS: MAGIC MOUTHWASH SUSPENSION BTL SSP SCH ×2 (09:09→12:54)
[2020-06-16] MEDS: REMEDY PHYTOPLEX Z-GUARD PASTE 113GM TUBE (FROM STOREROOM PRODUCT) TOP SCH (10:31)
[2020-06-16 12:00] VITALS: BP 133/75
[2020-06-16] MEDS ORDERED: QUET25TA3 PO (15:35)
== END 2020-06-16 15:20 | disposition home health service (06) | DRG 948 ==
LOC: M ED INP 13:19 → M PM&R 13:30
PROVIDERS: ADMIT Physical Medicine & Rehabilitation; ATTEND Physical Medicine & Rehabilitation
DX: R53.1 Weakness (principal); I13.0 Hypertensive heart and chronic kidney disease with heart failure and stage 1 through stage 4 chronic kidney disease, or unspecified chronic kidney disease; I50.22 Chronic systolic (congestive) heart failure; I25.10 Atherosclerotic heart disease of native coronary artery without angina pectoris; N18.30 Chronic kidney disease, stage 3 unspecified; R25.1 Tremor, unspecified; J44.9 Chronic obstructive pulmonary disease, unspecified; E78.5 Hyperlipidemia, unspecified; E11.22 Type 2 diabetes mellitus with diabetic chronic kidney disease; F02.80 Dementia in other diseases classified elsewhere, unspecified severity, without behavioral disturbance, psychotic disturbance, mood disturbance, and anxiety; E11.51 Type 2 diabetes mellitus with diabetic peripheral angiopathy without gangrene; G31.83 Neurocognitive disorder with Lewy bodies; R58 Hemorrhage, not elsewhere classified; R35.0 Frequency of micturition; M10.9 Gout, unspecified; Z87.891 Personal history of nicotine dependence; Z74.09 Other reduced mobility; R23.3 Spontaneous ecchymoses; Z74.1 Need for assistance with personal care; Z79.82 Long term (current) use of aspirin; Z79.02 Long term (current) use of antithrombotics/antiplatelets; Z79.4 Long term (current) use of insulin; Z79.899 Other long term (current) drug therapy; Z88.1 Allergy status to other antibiotic agents; Z88.8 Allergy status to other drugs, medicaments and biological substances

== ENCOUNTER → 2020-10-31 | Outpatient (CLI) | payer MEDICARE, BC ==
[~2020-10-31] MED LIST changes: +ALLO10TA PO; +AMLO1TAB25 PO; +ASPI-161 PO; +ATOR40TA75 PO; +CENT1TAB PO; +DOXE100CA PO; +INSUHUMDS SC; +PANT-23 PO; +PROP10TA56 PO; +QUET25TA3 PO; +RA S8.6T3 PO
--- NOTE | 2020-10-31 16:00 | REP ---
INDICATION: OCCLUSION/STENOSIS PENNIE CAROTID ART ATHSCL W/ EVELYN COMPARISON: Comparison study December 20, 2019.. TECHNIQUE: Real-time ultrasound evaluation and duplex Doppler interrogation of the extracranial carotid vasculature is performed. FINDINGS: Antegrade flow is observed in both vertebral arteries. Right carotid: The right common carotid artery shows diffuse intimal thickening but is otherwise unremarkable. There moderate mixed plaquing in the right carotid bulb and proximal ICA on two-dimensional scanning. Color flow and spectral Doppler interrogation are unremarkable on the right. Velocity chart right carotid: Right CCA PSV: 57 cm/S Right ICA PSV: 81 cm/S Right ICA EDV: 12 cm/S Right ECA PSV: 99 cm/S Right ICA/CCA ratio: 1.4 Left carotid: The left common carotid artery shows diffuse intimal thickening but is otherwise unremarkable. There is moderate mixed plaquing in the left carotid bulb and proximal ICA on two-dimensional scanning. Color flow and spectral Doppler interrogation are unremarkable on the left. Velocity chart left carotid: Left CCA PSV: 56 cm/S Left ICA PSV: 71 cm/S Left ICA EDV: 10 cm/S Left ECA PSV: 54 cm/S Left ICA/CCA ratio: 1.3 IMPRESSION: Less than 50% category narrowing in the right internal carotid artery by Doppler velocity criteria. Right ICA velocities measured at the prior study were higher than they are today. Heterogeneous and extensive calcific plaquing is observed bilaterally. Less than 50% category narrowing in the left ICA by Doppler velocity criteria. <Electronically signed by Connor Young > 10/31/20 [id number]
--- NOTE | 2020-10-31 16:39 | REP ---
INDICATION: OCCLUSION/STENOSIS PENNIE CAROTID ART ATHSCL W/ EVELYN. Status post left SFA stents in the past. COMPARISON: Comparison study November 08, 2019.. TECHNIQUE: Bilateral lower extremity arterial Doppler ultrasound. FINDINGS: Ankle brachial indices are recorded at 0.75 on the right and 0.69 on the left. Extensive bilateral lower extremity arterial plaquing is observed. On the right monophasic arterial waveforms are observed in the tibioperoneal trunk, proximal MARIAH, distal MARIAH, proximal and distal LIMOUSINE DRIVER. On the left monophasic waveforms are noted in the distal MARIAH and distal LIMOUSINE DRIVER. There is a 2.7-1 velocity ratio stenosis in these distal SFA on the right side. Patent left SFA stents are seen in the mid and distal SFA segment. The posterior tibial artery is the dominant vessel to the foot in the left. Trickle flow is observed in the anterior tibial artery distally. Right lower extremity arterial Doppler velocity chart: Right WHEEL ADJUSTER PSV 62 cm/S Profundal 119 Proximal SFA 54 Mid SFA 75 Distal SFA 74/197 Popliteal 32 Proximal MARIAH 27 Tibial-peroneal trunk 21 Proximal LIMOUSINE DRIVER 48 Distal LIMOUSINE DRIVER 18 Distal MARIAH 8 Left lower extremity arterial Doppler velocity chart: Left WHEEL ADJUSTER PSV 91 cm/S Profundal 83 Proximal SFA 141 Mid SFA 102 Distal SFA 73 Popliteal 71 Proximal MARIAH 87 Tibial-peroneal trunk 91 Proximal LIMOUSINE DRIVER 58 Distal LIMOUSINE DRIVER 31 Distal MARIAH 11 IMPRESSION: Significant atherosclerotic plaquing bilaterally in the lower extremities. Abnormal distal arterial waveforms. Patent left SFA stents. There is a moderate stenosis in the distal SFA on the right. <Electronically signed by Connor Young > 10/31/20 [id number]
== END ==
LOC: M RAD 12:52
PROVIDERS: ATTEND Surgery Vascular Surgery
DX: I65.23 Occlusion and stenosis of bilateral carotid arteries (principal); I70.213 Atherosclerosis of native arteries of extremities with intermittent claudication, bilateral legs

== ENCOUNTER → 2020-11-05 | Outpatient (REF) | payer MEDICARE, BC ==
[2020-11-05 17:24] LABS: CALCIUM LEVEL 10.2 MG/DL (8.8-10.2); CREATININE FOR GFR 1.55 MG/DL (0.70-1.30); GLOMERULAR FILTRATION RATE 45.8 (>35); POTASSIUM SERUM 4.9 MEQ/L (3.5-5.1)
== END ==
LOC: M LABDRAWC 16:20
PROVIDERS: ATTEND Internal Medicine Cardiovascular Disease
DX: I10 Essential (primary) hypertension (principal)

== ENCOUNTER → 2020-12-31 | Outpatient (REF) | payer MEDICARE, BC ==
[~2020-12-31] MED LIST changes: +QUET1TAB17 PO; -QUET25TA3 PO
== END ==
LOC: M LAB REF 17:33
PROVIDERS: ATTEND Internal Medicine Nephrology
DX: N18.31 Chronic kidney disease, stage 3a (principal)

== ENCOUNTER 2021-01-23 22:50 | Emergency (ER) | payer MEDICARE, BC ==
[~2021-01-23] VITALS: Ht 180.3 cm; Wt 72.7 kg
--- OUTSIDE RECORDS SUMMARY | 2021-01-23 22:55 | CCD | Continuity of Care Document ---
Author Author Jose ELDER M.D. Organization Unknown Address [address] [place] [id number] Phone [phone] Care Team Providers Care Fiction Writer Name Role Phone Christophe Ho M.D. AUTM [phone] Problems Active Problems Provider Date Chronic low back pain Mik Elder M.D. Onset: 02/21/2020 Lumbosacral radiculopathy Mik Elder M.D. Onset: 020 Pain in lower limb Mik Elder M.D. Onset: 02/21/2020 Social History Type Date Description Comments Sex Unknown Allergies and adverse reactions Description No Known Drug Allergies Medications Active Medications SIG Qnty Indications Ordering Provide r Date Sinemet 25-100mg Tablets 1/2 tablet by mouth three times a day 45tabs Rebeca Elder M.D. 03/31 Tylenol 8 Hour 650mg Tablets ER Mik Elder M.D. 02/21/2020 Immunizations Description No Information Available Vital Signs Description No Information Available Results Description No Information Available Procedures Date Code Description Status 01/15/2021 70932 Office/Outpatient Established Mo d MDM 30-39 Min Completed 09/02/2020 90132 Office/Outpatient Established Mo d MDM 30-39 Min Completed Medical Devices Description No Information Available Encounters Type Date Location Provider Dx Diagnosis Office Visit 01/15/2021 2:00p Main office - [place] Elder M.D. E11.40 Type 2 diabetes mellitus with diabetic n europathy, unsp G20 Parkinson's disease R44.2 Other hallucinations G31.83 Dementia with Lewy bodies Office Visit 09/02/2020 3:45p [place] M[place] 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 01/15/2021 G20 Parkinson's disease Rebeca Elder M.D. 01/15/2021 R44.2 Other hallucinations Rebeca dhaliwal M.D. 01/15/2021 G31.83 Dementia with Lewy bodies Rebeca Elder M.D. 09/02/2020 G47.51 Confusional arousals Rebeca dhaliwal M.D. 09/02/2020 E11.40 Type 2 diabetes brian itus with diabetic neuropathy, unspecified Rebeca Elder M.D. 09/02/2020 M47.897 Other spondylosis, lumbosacral r egion Rebeca Elder M.D. 09/02/2020 R41.3 Other amnesia Missy Vela 09/02/2020 G60.9 Hereditary and idiopathic neurop athy, unspecified Rebeca Elder M.D. 09/02/2020 G31.83 Dementia with Lewy bodies Rebeca Elder M.D. Plan of Treatment Future Appointment(s):* 07/13/2021 2:15 pm - Rebeca Elder M.D. at Main office - [place] Functional Status Description No Information Available Mental Status Description No Information Available Referrals Description No Information Available
--- OUTSIDE RECORDS SUMMARY | 2021-01-23 22:55 | CCD ---
Author Author [facility] Organization 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 Name Role Phone Christophe Ho Unavailable PROBLEMS Type Condition ICD9-CM Code ZTV85-[place] Code Onset Dates Condition S tatus W/U Status Risk SNOMED Code Notes Problem Diabetes type 2, uncontrolled E11.65 Active confirm ed 597746373 Problem Diabetes E11.9 Active confirmed 40767452 Problem Congestive heart failure (CHF) I50.9 Active confir med 42496671 Problem Crohn's disease in remission K50.90 Active confirme d 267760179 Problem Ganglion cyst of finger of right hand M67.441 Ac tive confirmed 024740526 Problem Long-term insulin use Z79.4 Active confirmed 461022794 Problem 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 Ac tive confirmed 912022609 Problem Benign prostatic hyperplasia with lower urinary tract symptoms N40.1 Active confirmed 5116402337130 Problem H/O fall Z91.81 Active confirmed 938063418 Problem Coronary atherosclerosis of sycuan coronary artery I25.10 Active confirmed 2780243573917 Problem Pure hypercholesterolemia E78.0 Active confirmed 773110638 Problem Essential hypertension I10 Active confirmed 81980142 Problem COPD (chronic obstructive pulmonary disease) J44.9 Active confirmed 55242894 Problem Chronic bronchitis, unspecified chronic bronchitis type J42 Active confirmed 54317691 Problem Chronic kidney disease, stage 3 (moderate) N18.3 Active confirmed 532954906006 Problem Coronary artery disease invo lving sycuan heart without angina pectoris, unspecified vessel or lesion type I25.10 Active confirmed 942966334594882 Problem Crohn''s disease of large intestine without complication K50.10 Active confirmed 7810667 Problem Skin tear of right forearm without complication, subsequent encounter S51.811D Active confirmed 324413941 Problem Insomnia, unspecified type G47.00 Active confirmed 801884652 Problem Encounter for general adult medical exam ination with abnormal findings Z00.01 Active confirmed 922549698 Problem Encounter for immunization Z23 Active confirmed 949387532 Problem 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 Z79.4 Active conf irmed 116076656 Problem Type 2 diabetes mellitus with diabetic chronic kidney disease E11.22 Active confirmed 99267766 Problem COPD exacerbation J44.1 Active confirmed 19 9193622 Problem 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 Active confirmed 365931795 Problem Skin tear of left lower leg without complication , initial encounter S81.812A Active confirmed 512257144 Problem Skin tear of left elbow without complication, in itial encounter S51.012A Active confirmed 737822432 Problem Hematoma of left lower leg S80.12XA Active conf irmed 28708506360371871 Problem Depressive disorder, not elsewhere classified F32. 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 Active confirmed 379865357 Problem Thoracic aneurysm without mention of rupture I71.2 Active confirmed 848522813 Problem Internal derangement of right knee M23.91 Activ e confirmed 022204679592447 Problem Acute prostatitis N41.0 Active confirmed 79 973799 Problem Skin tear of right lower leg without com plication, subsequent encounter S81.811D Active confirmed 001266966 Problem Skin tear of right lower leg without complicatio n, initial encounter S81.811A Active confirmed 292684147 Problem Other chronic pain G89.29 Active confirmed 8 8544456 Problem Tear of skin of right wrist, subsequent encounter S61.511D Active confirmed 064158675 Problem COLLIN (obstructive sleep apnea) G47.33 Active confirm ed 61985632 Problem Insomnia G47.00 Active confirmed 514113354 Problem Unspecified open wound of left elbow, subsequent encounter S51.002D Active confirmed 51125704960870990 Problem Unspecified open wound of right forearm, subsequ ent encounter S51.801D Active confirmed 02677629106092382 Problem Unspecified open wound of left upper arm, subseq uent encounter S41.102D Active confirmed 79574504407808120 Problem Unspecified open wound of right elbow, subsequent enco unter S51.001D Active confirmed 76974370613759178 Problem Unspecified open wound, right knee, subsequent encounter S81.001D Active confirmed 05713826430013043 Problem Gastroesophageal reflux disease, esophagitis pre sence not specified K21.9 Active confirmed 720882496 Problem Unspecified open wound, right lower leg, subsequ ent encounter S81.801D Active confirmed 47329342165549023 Problem Eczema L30.9 Active confirmed 24869966 Problem Unspecified open wound, left knee, subsequent encounter S81.002D Active confirmed 85073301755089796 Problem Crohns colitis, unspecified complication K50.119 Active confirmed 99441957 Problem Unspecified open wound of left hand, subsequent encounter S61.402D Active confirmed 07535196121836471 Problem Pulmonary nodule R91.1 Active confirmed 309 136180 Problem 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.80 Active confirmed 435094227 Problem Renal cysts, acquired, bilateral N28.1 Active conf irmed 190554136 Problem Poor urinary stream R39.12 Active confirmed 258856702 Problem 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 Active confirmed 06232623 Problem Unspecified open wound of le ft index finger without damage to nail, subsequent encounter S61.201D Active confirmed 30196588 973410483 Problem Chronic airway obstruction J44.9 Active confirmed 33520212 Problem Thrush B37.0 Active confirmed 07203386 Problem 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 Active confirmed 68199888764483397 Problem Atherosclerosis of sycuan co ronary artery, angina presence unspecified, unspecified whether sycuan or transplanted heart I25.10 A ctive confirmed 9078618752491 Problem Other seborrheic dermatitis L21.8 Active confirmed 32895241 Problem Unspecified open wound of left forearm, subsequent enc ounter S51.802D Active confirmed 19531828456644412 Problem Insomnia, unspecified G47.00 Active confirmed 307930413 Problem Renal calculus, bilateral N20.0 Active confirmed 62820723 Problem H/O Meckel's diverticulum Z87.19 Active confirmed 642052690 Problem Basal cell carcinoma of right postauricular region C44.212 Active confirmed 740937962 Problem Contact dermatitis and other eczema, due to unspecified ca use L25.9 Active confirmed 91980806 Problem Basal cell carcinoma of right preauricular region C44.319 Active confirmed 006292701 Problem Basal cell carcinoma of left side of neck C44.41 Active confirmed 319519428 Problem Chronic cough R05 Active confirmed 572030 08 ALLERGIES Allergen (clinical drug ingredient) Drug/Non Drug Allergy do cumented on EMR Reaction Allergy Type Onset Date Status carbidopa / levodopa Sinemet([facility] Code:[address]-67) reactio n per in hospital Drug Allergy Active alprazolam Xanax(ND Code:[address]-72) hullcanations Drug Allergy Active Keflex Rash Drug Allergy Active ENCOUNTERS from 1935 to 2020-12-23 Encounter Location Date Provider Diagnosis [phone] [place] [address] Dec, 2020 Christophe Ho COPD (chronic obstructive pulmonary dise ase) J44.9 ; Essential hypertension I10 ; Thrush B37.0 ; Diabetes E11.9 and Acute right-sided low back pain without sciatica M54.5 IMMUNIZATIONS Vaccine Route Administration Date Status Influenza (High Dose 65 & up) IM Intramuscular Dec 11, 2015 A dministered Influenza (High Dose 65 & up) IM Intramuscular Feb 21, 2017 A dministered Influenza 18 yrs & older Flublok IM Intramuscular Jan 27, 2018 Administered Influenza 18 yrs & older Flublok Unknown Jan 26, 2019 Administered Influenza Pharmacy Given Unknown Jan 10, 2020 Refused Influenza 6mo & up Fluzone IM Intramuscular Jan 31, 2014 Admi nistered Influenza (High Dose 65 & up) IM Intramuscular Jan 08, 2015 A dministered Pneumococcal 0.5mL Prevnar 13 IM Intramuscular Feb 13, 2015 A dministered Influenza 6mo & up Fluzone Unknown Jan 07, 2009 Admin istered COVID-19 dose #1 given elsewhere Unspecified Unknown May 15, 2020 Administered Influenza 18 yrs & older Flublok IM Intramuscular Jan 26, 2019 Administered Influenza 18 yrs & older Flublok IM Intramuscular Jan 11, 2020 Administered Zoster 0.65mL Zostavax SC Subcutaneous Nov 12, 2011 Administe red Zoster 0.65mL Zostavax Unknown Nov 11, 2011 Administe red TDAP 0.5mL (Boostrix) IM Intramuscular October 26, 2011 Administe red Pneumococcal Adult 0.5mL Pneumovax 23 Unknown Jan 07 09 Administered Influenza 6mo & up Fluzone IM Intramuscular Feb 02, 2013 Admi nistered Influenza 6mo & up Fluzone IM Intramuscular Dec 31, 2011 Admi nistered Influenza 6mo & up Fluzone IM Intramuscular Dec 23, 2010 Admi nistered Influenza 6mo & up Fluzone IM Intramuscular Dec 30, 2009 Admi nistered SOCIAL HISTORY Tobacco Use: Social History Observation Description Date Details (start date - stop date) Former Smoker Sex Assigned At : Social History Observation Description Sex Assigned At Unknown Audit Question Answer Notes Total Score: 3 Interpretation: Alcohol Education Restorationism: Question Answer Notes Restorationism No rastafari beliefs that would impact health care. Sexual Hx: Question Answer Notes Had sex in the last 12 months (vaginal, oral, or anal)? No Have you ever had an STD? No Drug and Alcohol Question Answer Notes Total Score: 0 Interpretation: No problems reported Alcohol Screening: Question Answer Notes Did you have a drink containing alcohol in the past year? Ye s Points 3 Interpretation Negative How often did you have six or more drinks on one occas ion in the past year? Never (0 points) How many drinks did you have on a typica l day when you were drinking in the past year? 1 or 2 (0 points) How often did you have a drink containing alcohol in t he past year? Two to three times per week (3 points) BMI Care Goal Follow-Up Question Answer Notes Above Normal BMI Follow-Up Dietary management educatio n, guidance, and counseling Tobacco Use: Question Answer Notes Are you a: former smoker quit 2003 Additional Findings: Tobacco User none Additional Findings: Tobacco Non-User Current non-smoker How long has it been since you last smoked? > 10 years updated 12/19/2020 REASON FOR REFERRAL No Information VITAL SIGNS Weight 154.12 lbs Dec, Height 71" in Dec, BMI 21.49 kg/m2 Dec, Heart Rate 70 /min Dec, Respiratory Rate 18 /min Dec, Temperature 98 degrees Fahrenheit Dec, Oximetry 96RA Dec, Blood pressure systolic 129 mm Hg Dec, Blood pressure diastolic 76 mm Hg Dec, MEDICATIONS Medication SIG (Take, Route, Frequency, Duration) Notes Start Da te End Date Status Senna 8.6 MG 1 tab Orally Once a day as needed Not-Taking Flonase Allergy Relief 50 MCG/ACT 1 spray in each nostril Nasall y bid May, Not-Taking Pantoprazole Sodium 40 MG TAKE ONE TABLET BY MOUTH EVERY DAY orally D aily Active Glucometer . as directed subcutaneously twice a day D X: DM uncontrolled E11.65 August, Active Aspirin 81 81 MG 1 tablet Orally Once a day Active Atorvastatin Calcium 40 MG 1 tablet Orally Once a day Active Lantus solo star pen needles 10 uints E11.65 daily Mar, Active Docusate Sodium 100 MG 1 capsule as needed Orally Once a day Not-Taking Budesonide 3 MG 1 cap Orally bid Act prosper Acetaminophen 500 MG 2 tablets as needed every 8 hrs 09 Ap r2019 Active Terazosin HCl 5 MG 1 capsule at bedtime Orally Once a day Jul, Not-Taking Lancets ___ as directed subcutaneously four times daily as needed E11 .65 Active Glucose strip (Verio IQ) as directed ----- as directed Apr, Active amLODIPine Besylate 10 MG 1 tablet Orally Once a day Active Januvia 25 mg 1 tab Orally Once a day Not-Taking Allopurinol 100 MG 1 tablet orally Daily Active Spironolactone 25 mg 1 tab Orally Once a day Active Fluticasone Furoate 200 MCG/ACT 1 puff Inhalation Once a day Not-Taking Centrum Silver Ultra Mens 1 tab orally Daily Active Nystatin 450533 UNIT/ML 5 ml Mouth/Throat Four times a day for 14 day(s) Dec, Active Mucinex 600 MG 1 tablet as needed Orally every 12 hrs 30 O 2019 Active Breo Ellipta 200.25 1 puff Inhalation Once a day Active Incruse Ellipta 62.5 MCG/INH 1 puff Inhalation Once a day Active Colace 100 MG 1 cap Orally bid Activ e August Have - Rollator Oct, Active Bacid - 1 cap Orally Daily Active Januvia 50 MG 1 tab Orally Daily Act prosper Propranolol HCl 20 MG 1 tablet Orally tid for tremor Active MiraLax 17 GM/SCOOP as directed Orally Active Clindamycin HCl 300 MG 1 cap Orally bid for 10 day(s) S 2020 Not-Taking Hannah-Bid Probiotic - 1 tab Orally bid for 90 days Jul, Not-Taking PROCEDURES No Information RESULTS No Results REASON FOR VISIT 3 mo follow up MEDICAL (GENERAL) HISTORY Type Description Date Medical History HTN Medical History HYPERCHOLESTROLEMIA Medical History Prostatitis Medical History Inflammatory Bowel Disease (Crohn's Susp ect) Medical History CAD, s/p stents to LAD and R CA, Last nuclear study 04/2012, global hypokinesis 47-53%, no ischemia Medical History Reflux esophagitis Medical History Diabetes Medical History COPD Medical History CHF Medical History CKD STAGE 3 Medical History TIA 05/2020 Medical History possible Parkinson's Surgical History right inguinal herniorraphy. Surgical History TONSILECTOMY CHILD Surgical History PENNIE CAT SURGERY Surgical History 4 cardiac stents 01-19-2011 Surgical History 3 cardiac stents 02-08-2011 Surgical History resection of Meckel's 02/2012 Surgical History stent placed left leg 01/2015 Surgical History heart cath 12/2014 Surgical History Right hand, cyst removal Surgical History Facial Lesions 2016 Surgical History BCC left neck area 10/2016 Surgical History Right check BCC and right side of face B CC 11/2016 Surgical History doing skin cancers MOH'S proce dure@ [facility] [address] Feng multiple removal s of skin cancer over the past 2 years 7536-[address]Raphael LUCAS procedure right ear 04/04 Surgical History [facility] 09/13/2019 Hospitalization History prostatitis 11/2010 Hospitalization History cardiac stents 01/2011& 02/2011 Hospitalization History resection of Meckel's 02/2012 Hospitalization History Pneumonia/COPD flare 2014 Hospitalization History syncope 08/04-08/12/15 Hospitalization History COPD - [facility] 08/21-08/27/15 Hospitalization History [place] -[facility]-totrohptfdx-uicnndla cut o n leg 10/27- Hospitalization History [facility] cough,SOB, exacerbation C OPD 03/03-03/09/[address] [facility] ? stroke 05/31/2020 -06/05/2020 Hospitalization History [facility] 06/05/2020-06/17/19 21 Goals Section No Information Health Concerns No Information MEDICAL EQUIPMENT No Information MENTAL STATUS No Information FUNCTIONAL STATUS No Information ASSESSMENTS Encounter Date Diagnosis Assessment Notes Treatment Notes Treatm ent Clinical Notes Dec, COPD (chronic obstructive pulmonary disease) (IC D-10 - J44.9) Dec, Essential hypertension (ICD-10 - I10) Dec, Thrush (ICD-10 - B37.0) Dec, Diabetes (ICD-10 - E11.9) Dec, Acute right-sided low back pain without sciatica (ICD-10 - M54.5) Dec, Other asks about driving again. he has normal gait, normal heel walk but not normal toe walk. PLAN OF TREATMENT Medication Medication Name Sig Start Date Stop Date MiraLax 17 GM/SCOOP as directed Orally Propranolol HCl 20 MG 1 tablet Orally tid for tremor Allopurinol 100 MG 1 tablet orally Daily Januvia 50 MG 1 tab Orally Daily Spironolactone 25 mg 1 tab Orally Once a day Budesonide 3 MG 1 cap Orally bid Nystatin 053781 UNIT/ML 5 ml Mouth/Throat Four times a day for 14 day(s) Dec, Glucometer . as directed subcutaneously twice a day D X: DM uncontrolled E11.65 August, Lancets ___ as directed subcutaneously four times daily as n eeded E11.65 Lantus solo star pen needles 10 uints E11.65 daily Mar, Centrum Silver Ultra Mens 1 tab orally Daily Colace 100 MG 1 cap Orally bid Acetaminophen 500 MG 2 tablets as needed every 8 hrs Jul, 0 amLODIPine Besylate 10 MG 1 tablet Orally Once a day Bacid - 1 cap Orally Daily August Have - Rollator Oct, Incruse Ellipta 62.5 MCG/INH 1 puff Inhalation Once a day Glucose strip (Verio IQ) as directed ----- as directed Apr, 018 Atorvastatin Calcium 40 MG 1 tablet Orally Once a day Pantoprazole Sodium 40 MG TAKE ONE TABLET BY MOUTH EVERY DAY ora lly Daily Aspirin 81 81 MG 1 tablet Orally Once a day Breo Ellipta 200.25 1 puff Inhalation Once a day Mucinex 600 MG 1 tablet as needed Orally every 12 hrs Jan, 020 Next Appt Details 6 Months Reason: Provider Name:Asa Mary, 2020-12-2 3 01:00:00 PM, [id number], , [place], [address], Insurance Providers Payer Name Payer Address Payer Phone Insured Name Patient Relati onship to Insured Coverage Start Date Coverage End Date BS [place] [facility] [address] [place] [address] FRANSISCA HOOVER [id number] MEDICARE Part A and B [address] [facility] [address] [phone] FRANSISCA HOOVER self 2004
--- OUTSIDE RECORDS SUMMARY | 2021-01-23 22:55 | CCD | Continuity of Care Document ---
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 Name Role Phone Christophe Ho MD [facility] [phone] Problems Active Problems Provider Date Chronic kidney disease stage 3 Shanon Akhtar PA-C On set: 01/06/2016 Type 2 diabetes mellitus Shanon Akhtar PA-C Onset: 1 Social History Type Date Description Comments Sex Unknown Cigarette Use Former Cigarette Smoker 1 Pack D aily x 30 years quit in 2003 ETOH Use Occasionally consumes alcohol Tobacco Use Start: Unknown End: Unknown Patient is a former smoker Smoking Status Reviewed: 12/22/20 Patient is a former smoker Allergies, Adverse Reactions, Alerts Description No Information Available Medications Active Medications SIG Qnty Indications Ordering Provide r Date Pen Demarest 32G X 4 mm Misc use as directed 1 x per day e11.65 100units Tita Land MD 12/17/2019 Januvia 50mg Tablets Take 1 Tablet Every Day, Maximum Daily Dose: 1 90tabs Tita Land MD 02/06/2019 Sennosides 8.6mg Tablets 17.2 mg daily at bedtime as needed Unknown Propranolol HCL 10mg Tablets 1 tablet three times a day Unknown Centrum Silver 50+Men 50+Men Table ts 1 tablet daily Unknown Docusate Sodium 100mg Capsules take one capsule twice a day Unknown Aspirin 81 Low Dose 81mg Chewtabs 1 by mouth every day Unknown Breo Ellipta 200-25mcg/Inh Aerosol use as directed Unknown Livongo use as directed Unknown 0 Incruse Ellipta 62.5mcg/Inh Aeroso l 1 puff qd Unknown Pantoprazole Sodium 40mg Tablets D R 1 po qd Unknown Spironolactone 25mg Tablets 1 po qd Unknown Allopurinol 100mg Tablets 1 p o qd Unknown Lantus Solostar 100U nit/ML Solution Pen-Inject Inject 10 Units Daily as Directed Subc utaneously Nightly AT Bedtime. Maximumdaily Dose 10 Units 15units Tita Land MD [address] Fito kaiser id Unknown Atorvastatin Calcium 40mg Tablets 1 by mouth every day Unknown Amlodipine Besylate 10mg Tablets 1 tablet by mouth every day Unknown Immunizations Description No Information Available Vital Signs Date Vital Result Comment 12/22/2020 1:30pm BP Systolic 122 mmHg BP Diastolic 70 mmHg Heart Rate 68 /min Height 71 inches 5'11" Weight 156.00 lb BMI (Body Mass Index) 21.8 kg/m2 O2 % BldC Oximetry 96 % 08/25/2020 1:23pm BP Systolic 140 mmHg BP Diastolic 100 mmHg Heart Rate 70 /min Body Temperature 96.9 F Height 71 inches 5'11" Weight 164.25 lb BMI (Body Mass Index) 22.9 kg/m2 O2 % BldC Oximetry 96 % Results Test Acquired Date Facility Test Result H/L Range Note Laboratory test finding 12/22/2020 In House Glucose 213 Hemoglobin A1c 6.2 Laboratory test finding 08/25/2020 In House Glucose 207 Hemoglobin A1c 6.8 Procedures Date Code Description Status 12/04/2020 [id number] Diabetic Foot Exam Completed 08/25/2020 32904 Office/Outpatient Established Mo d MDM 30-39 Min Completed Medical Devices Description No Information Available Encounters Type Date Location Provider Dx Diagnosis Office Visit 08/25/2020 1:30p DR. Tita Land MD E 11.22 Type 2 diabetes mellitus w diabetic chronic kidney disease E78.00 Pure hypercholesterolemia, u nspecified I10 Essential (primary) hyperten gala R00.8 Other abnormalities of heart beat N18.31 Chronic kidney disease, stag e 3a G45.9 Transient cerebral ischemic attack, unspecified Assessments Date Code Description Provider 12/22/2020 E11.22 Type 2 diabetes mellitus with di abetic chronic kidney disease Berenice Azevedo, ROBER 12/22/2020 E78.00 Pure hypercholesterolemia, unspe cified Berenice Azevedo, ROBER 12/22/2020 I10 Essential (primary) hypertension Berenice Azevedo, ROBER 12/22/2020 R00.8 Other abnormalities of heart maliha t Berenice Azevedo NP 12/22/2020 N18.31 Chronic kidney disease, stage 3a Berenice Azevedo, ROBER 12/22/2020 G45.9 Transient cerebral ischemic elio ck, unspecified Berenice Azevedo, ROBER 08/25/2020 E11.22 Type 2 diabetes mellitus with di abetic chronic kidney disease Tita Land MD 08/25/2020 E78.00 Pure hypercholesterolemia, unspe cified Tita Land MD 08/25/2020 I10 Essential (primary) hypertension Tita Land MD 08/25/2020 R00.8 Other abnormalities of heart maliha t Tita Land MD 08/25/2020 N18.31 Chronic kidney disease, stage 3a Tita Land MD 08/25/2020 G45.9 Transient cerebral ischemic elio ck, unspecified Tita Land MD Plan of Treatment 12/22/2020 - Berenice Azevedo, ROBER* E11.22 Type 2 diabetes mellitus with diabetic chronic kidney disease* Comments:* 12/22/20- in office a1c= 6.2 % (6.8% 6.4%, 6.9%, 6.7%, 7.9% 7.5%, 7.1%, 7.2%7.1%,6.4%,6.5%, 6.4%, 5.7%.) Random BS= 213Manual Meter downloaded and reviewed- fasting- 92-141, bedtime- 118-179Has lost 8 lbs since last visit. Current medications: Januvia 50 mg , Lantus 10 units qhs * E78.00 Pure hypercholesterolemia, unspecified* Comments:* Goal for LDL <70 due to diabetes and CAD. On Atorvastatin 20 mg po qd. 09/25/2019- chol= 166, trig= 90, HDL= 51, LDL= 97 * I10 Essential (primary) hypertension* Comments:* Under control. BP 130/86 * R00.8 Other abnormalities of heart beat* Comments:* Sees Dr. Hand and did holter 10/2019( ordered by Dr. Barbour due to falls) * N18.31 Chronic kidney disease, stage 3a* Comments:* Nephrology notes reviewed- 08/26/20Labs done 08/26/20- per nephrology- Scr= 1.6, GFR= 41, microcreat ratio= 27.3HH= 37.6/12.5 * G45.9 Transient cerebral ischemic attack, unspecified* Comments:* reported that he was seen at [facility] in transfer to [place] sometime in May with what sounds like a TIA. They did scans and "stroke was ruled out". He was on Plavix for a month but it was discontinued. He is now only on baby aspirin.Will follow with cardiology and neurology. Functional Status Description No Information Available Mental Status Description No Information Available Referrals Description No Information Available
--- OUTSIDE RECORDS SUMMARY | 2021-01-23 22:55 | CCD | Continuity of Care Document ---
Author Author Jose EVANS MD Organization Unknown Address [address] [place] [address] Phone [phone] Care Team Providers Care Loan Interviewer Mortgage Name Role Phone Christophe Ho M.D. AUTM [phone] Shayan Hand MD (WTN) AUTM [phone] Thu Miles M.D. AUTM Clive Worrell M.D. AUTM [phone] Asa Barbour MD AUTM [phone] AUTM Unavailable AUTM Unavailable AUTM Unavailable Problems Active Problems Provider Date Crohn's disease of small intestine Clive Worrell MD Onset : 06/22/2012 Nonspecific(Abnormal)Findings On Radiological,Gastro Tract D rose Worrell MD Onset: 06/22/2012 Intestinal obstruction Clive Worrell MD Onset: 06/22/2012 Disorder of intestine Clive Worrell MD Onset: 06/22/2012 Gastric ulcer without hemorrhage, without perforation AND without obstruction Clive Worrell MD Onset: 06/22/2012 Stricture of esophagus Clive Worrell MD Onset: 06/22/2012 Diverticular disease of colon Clive Worrell MD Onset: H/O: peptic ulcer Clive Worrell MD Onset: 06/22/2012 Disorder of stomach Clive Worrell MD Onset: 06/22/2012 Diarrhea Clive Worrell MD Onset: 06/22/2012 Internal hemorrhoids without complication Clive Worrell MD Onset: 06/22/2012 Esophagitis Clive Worrell MD Onset: 06/22/2012 Abdominal pain Clive Worrell MD Onset: 06/22/2012 Nausea and vomiting Clive Worrell MD Onset: 06/22/2012 Dysphagia Clive Worrell MD Onset: 06/22/2012 Ex-smoker Thu Miles M.D. Onset: Cough Thu Miles M.D. Onset: Pulmonary function studies abnormal Thu Miles M.D. Onset: 03/23/2013 Gastroesophageal reflux disease Aubrie Sim Onset: 03/23/2013 Posterior rhinorrhea Thu Miles M.D. Onset: Chronic obstructive lung disease Missy Sim Onset: 12/05/2013 Pulmonary emphysema Thu Miles M.D. Onset: 06/2013 Difficulty breathing Thu Miles M.D. Onset: Other Nonspecified Abnormal Finding Of Lung Field Thu Miles M.D. Onset: 01/07/2014 Solitary Pulmonary Nodule Thu Miles M.D. Onse t: 01/07/2014 Constipation Clive Worrell MD Onset: 01/07/2014 Flatulence, eructation and gas pain Clive Worrell MD Onse t: 01/07/2014 Chronic rhinitis Nasir Corrigan MD Onset: 01/01/2015 Scar emphysema Thu Miles M.D. Onset: Chronic obstructive pulmonary disease with (acute) exa cerbation Thu Miles M.D. Onset: 01/23/2015 Dyspnea Thu Miles M.D. Onset: Allergic rhinitis Nasir Corrigan MD Onset: 03/24/2016 Chronic sinusitis Nasir Corrigan MD Onset: 03/24/2016 Essential hypertension Malika Álvarez MD Onset: 03/22/2019 Social History Type Date Description Comments Sex Unknown Tobacco Use Start: 04/04/62 End: 04/04/02 Former Cigarette S moker 1 Pack Daily Cigarette Use 1963 Pack Years - 30 ETOH Use 2-3 A Week Tobacco Use Start: 04/04/62 End: 04/04/02 Patient is a forme r smoker hx: 1ppd since age 27, quit for 10 years in between, quit for good in 2002=30 pack years Recreational Drug Use Denies Drug Use Smoking Status Reviewed: 12/31/20 Patient is a former smoker hx : 1ppd since age 27, quit for 10 years in between, quit for good in 2002=30 pack years Allergies, Adverse Reactions, Alerts Active Allergies Criticality Reaction | Severity Comments Date Cephalexin Unable to assess criticality hives 02/10/2017 Infliximab Unable to assess criticality Pos sible--recurrent/frequent lung infections 02/22/2017 Xanax Unable to assess criticality HALLUCINATIONS 03/22/2019 Sinemet Unable to assess criticality 06/24/2020 Inactive Allergies NKDA Unable to assess criticality 10/01/2010 NKDA Unable to assess criticality 01/08/2016 Medications Active Medications SIG Qnty Indications Ordering Provide r Date Breo Ellipta 200-25mcg/Inh Aerosol Use 1 Inhalation Orally Daily 180units Samir Evans MD 0 07/04/2017 Incruse Ellipta 62.5mcg/Inh Aeroso l use 1 inhalation orally daily 90units Samir Evans MD 05/2017 Miralax Powder 17 gm once a day as needed K50.00 Clive Worrell MD 09/01/2016 Budesonide ER 3mg Caps ER 24HR take 2capsules (=6mg) by mouth once a day 270caps K50.00 Clive garrett MD 10/24/2014 Ventolin HFA 108(90Base) mcg/Act A erosol 2 puffs q4 hour as needed with spacer 18gm Thu Miles M.D. 03/23/2013 E-Z Spacer Device use with M DIs 1units Thu Miles M.D. 03/23/2013 Docusate Sodium 100mg Capsules take one capsule by mouth twice a day before meals, avoid if having diarrhea Unknown Propranolol HCL 20mg Tablets Take One Tablet By Mouth Three Times A Day Unknown Aspirin 81mg Tablets DR 1 by mouth every day Unknown Probiotic Capsules 1 tab by mouth twice a day Unknown Lantus 100Unit/ML Solution 10 units daily Unknown Januvia 50mg Tablets 1 tab by mouth every day Unknown Allopurinol 100mg Tablets 1 tab by mouth every day Unknown Spironolactone 25mg Tablets 1 tab by mouth every day 30tabs Unknown Pantoprazole Sodium 40mg Tablets D R 1 tab by mouth every day 20tabs Unknown Amlodipine Besylate 10mg Tablets 1 po daily Unknown Atorvastatin Calcium 40mg Tablets 1 tab by mouth every day Unknown Immunizations CPT Code Status Date Vaccine Lot # [id number] Given 02/13/2015 Prevnar 13 81885 Given 12/31/2014 Influenza Virus Split 3 Yrs And Above For Intramuscular Use 34308 Given 01/28/2014 Influenza Virus Split 3 Yrs And Above For Intramuscular Use 21310 Given 02/22/2013 TB Intradermal Test 77472 Given 01/18/2013 Influenza Virus Split 3 Yrs And Above For Intramuscular Use Vital Signs Date Vital Result Comment 12/31/2020 1:22pm BP Systolic 130 mmHg BP Diastolic 80 mmHg Heart Rate 61 /min O2 % BldC Oximetry 99 % Height 70 inches 5'10" Weight 155.00 lb BMI (Body Mass Index) 22.2 kg/m2 [place] Body Weight 166 lb Weight 70.308 kg BSA (Body Surface Area) 1.87 m2 11/06/2020 11:18am BP Systolic 156 mmHg BP Diastolic 77 mmHg Heart Rate 59 /min Body Temperature 98.2 F Height 70 inches 5'10" Weight 155.00 lb BMI (Body Mass Index) 22.2 kg/m2 [place] Body Weight 166 lb Weight 70.308 kg BSA (Body Surface Area) 1.87 m2 Results Test Acquired Date Facility Test Result H/L Range Note [facility] 12/31/2020 [facility] SEE IMAGE FVC-Pred 3.90 L FVC-Pre 3.45 L FVC-%Pred-Pre 88 L FVC-LLN 2.97 L Fev1-Pred 2.74 L Fev1-Pre 1.96 L Fev1-%Pred-Pre 71 L Fev1-LLN 1.95 L Fev6-Pred 3.62 L Fev6-Pre 3.42 L Fev6-%Pred-Pre 94 L Fev6-LLN 2.72 L Ikv0lxb-Lfdm 71 % Hjs2icj-Vlj 57 % Gry9lxj-%Pred-Pre 79 % Czk7vjr-SNK 61 % Pmo5tdr-Lfsw 93 % Ygd7kmx-Gna 99 % Axa9dtq-%Pred-Pre 106 % FEFMax-Pred 6.85 L/E/sec FEFMax-Pre 4.57 L/E/sec FEFMax-%Pred-Pre 66 L/E/sec FEFMax-LLN 4.52 L/E/sec Vkf3737-Lulq 1.83 L/E/sec Fgo2897-Apw 0.94 L/E/sec Oqm1354-%Pred-Pre 51 L/E/sec Nvs2005-KOK 0.22 L/E/sec ExpTime-Pre 6.61 sec Fun3jpq2-Nrsg 76 % Nri7rxt8-Prq 57 % Zem8pgm7-%Pred-Pre 75 % Xev1jtv0-ALB 67 % Procedures Date Code Description Status 11/06/2020 87306 Office/Outpatient Established Lo w MDM 20-29 Min Completed Medical Devices Description No Information Available Encounters Type Date Location Provider Dx Diagnosis Office Visit 11/06/2020 11:00a [facility] Holland Forrest MD I73.9 Peripheral vascular disease, unspecified Assessments Date Code Description Provider 12/31/2020 J44.9 Chronic obstructive pulmonary di sease, unspecified Samir Evans MD 12/31/2020 R91.8 Other nonspecific abnormal findi ng of lung field Samir Evans MD 12/31/2020 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 Functional Status Functional Condition Comment Date Status Independent with all ADL's Activ e Independent with all IADL's Acti ve Mental Status Mental Condition Comment Date Status Cognitive ability not impaired A ctive Referrals Description No Information Available
--- OUTSIDE RECORDS SUMMARY | 2021-01-23 22:55 | CCD | Continuity of Care Document ---
Author Author Jose EVANS MD Organization Unknown Address [address] [place] [address] Phone [phone] Care Team Providers Care Job Service Specialist Name Role Phone Christophe Ho M.D. AUTM [phone] Shayan Hand MD (WTN) AUTM [phone] Thu Miles M.D. AUTM [phone] Clive Worrell M.D. AUTM [phone] Asa Barbour MD AUTM [phone] AUTM Unavailable AUTM Unavailable AUTM Unavailable Problems [...] disease Missy Sim Onset: 12/05/2013 Pulmonary emphysema hTu Miles M.D. Onset: 06/2013 Difficulty breathing Thu Miles M.D. Onset: Other Nonspecified Abnormal Finding Of Lung Field hTu Miles M.D. Onset: 01/07/2014 Solitary Pulmonary Nodule [...] CPT Code Status Date Vaccine Lot # 11307 Given 02/13/2015 Prevnar 13 48920 Given 12/31/2014 Influenza Virus Split 3 Yrs And Above For Intramuscular Use 18117 Given 01/28/2014 Influenza Virus Split 3 Yrs And Above For Intramuscular Use 37834 Given 02/22/2013 TB Intradermal Test 67396 Given 01/18/2013 Influenza Virus Split 3 Yrs And Above For Intramuscular Use Vital Signs Date Vital Result Comment 12/31/2020 1:22pm BP Systolic 130 mmHg BP Diastolic 80 mmHg Heart Rate 61 /min O2 % BldC Oximetry 99 % Height 70 inches 5'10" Weight 155.00 lb BMI (Body Mass Index) 22.2 kg/m2 [place] Body Weight 166 lb Weight 70.308 kg BSA (Body Surface Area) 1.87 m2 11/06/2020 11:18am BP Systolic 156 mmHg BP Diastolic 77 mmHg Heart Rate 59 /min Body Temperature 98.2 F Height 70 inches 5'10" Weight 155.00 lb BMI (Body Mass Index) 22.2 kg/m2 [place] Body Weight 166 lb Weight 70.308 kg BSA (Body Surface Area) 1.87 m2 Results Test Acquired Date Facility Test Result H/L Range Note [facility]/[place] 12/31/2020 [facility] SEE IMAGE FVC-Pred 3.90 L FVC-Pre 3.45 L FVC-%Pred-Pre 88 L FVC-LLN 2.97 L Fev1-Pred 2.74 L Fev1-Pre 1.96 L Fev1-%Pred-Pre 71 L Fev1-LLN 1.95 L Fev6-Pred 3.62 L Fev6-Pre 3.42 L Fev6-%Pred-Pre 94 L Fev6-LLN 2.72 L Bom2ybe-Somf 71 % Hnd2ork-Qbe 57 % Iyr4tyo-%Pred-Pre 79 % Zjx7cui-CXO 61 % Nbq7nei-Mxpp 93 % Lqo0iht-Qqc 99 % Kem6daq-%Pred-Pre 106 % FEFMax-Pred 6.85 L/E/sec FEFMax-Pre 4.57 L/E/sec FEFMax-%Pred-Pre 66 L/E/sec FEFMax-LLN 4.52 L/E/sec Bzb3725-Wvdi 1.83 L/E/sec Xhf1829-Poo 0.94 L/E/sec Rmz3081-%Pred-Pre 51 L/E/sec Ddy1008-MOY 0.22 L/E/sec ExpTime-Pre 6.61 sec Jdh8ihy1-Cibf 76 % Kng2bsz8-Srj 57 % Unh4snv4-%Pred-Pre 75 % Wiv2utw2-SFU 67 % Procedures Date Code Description Status 11/06/2020 83691 Office/Outpatient Established Lo w MDM 20-29 Min Completed Medical Devices Description No Information Available Encounters Type Date Location Provider Dx Diagnosis Office Visit 11/06/2020 11:00a [facility] Holland Forrest MD I73.9 Peripheral vascular disease, unspecified Assessments Date Code Description Provider 11/06/2020 I73.9 Peripheral vascular disease, uns pecified Holland Forrest MD Plan of Treatment No Information Available Functional Status Functional Condition Comment Date Status Independent with all ADL's Activ e Independent with all IADL's Acti ve Mental Status Mental Condition Comment Date Status Cognitive ability not impaired A ctive Referrals Description No Information Available
--- OUTSIDE RECORDS SUMMARY | 2021-01-23 22:55 | CCD | Continuity of Care Document ---
Author Author Jose AZEVEDO INTERIOR DESIGN PROFESSIONAL Organization Unknown Address [address] [place] [address] Phone [phone] Care Team Providers Care Ballistics Teacher Name Role Phone Christophe Ho MD [facility] [phone] Problems Active Problems Provider Date Chronic kidney [...] Qnty Indications Ordering Provide r Date Pen [place] 32G X 4 mm Misc use as [...] A1c 6.8 Procedures Date Code Description Status 12/22/2020 08880 Office/Outpatient Established Mo d MDM 30-39 Min Completed 12/04/2020 [id number] Diabetic Foot Exam Completed 08/25/2020 22251 Office/Outpatient Established Mo d MDM 30-39 Min Completed Medical Devices Description No Information Available Encounters Type Date Location Provider Dx Diagnosis Office Visit 12/22/2020 1:15p DR. Tita Azevedo, Cecilio P E11.22 Type 2 diabetes mellitus w diabetic chronic kidney disease E78.00 Pure hypercholesterolemia, u nspecified I10 Essential (primary) hyperten gala R00.8 Other abnormalities of heart beat N18.31 Chronic kidney disease, stag e 3a G45.9 Transient cerebral ischemic attack, unspecified Office Visit 08/25/2020 1:30p DR. Tita Land [...] di abetic chronic kidney disease Berenice Azevedo, INTERIOR DESIGN PROFESSIONAL 12/22/2020 E78.00 Pure hypercholesterolemia, unspe cified Berenice Azevedo, INTERIOR DESIGN PROFESSIONAL 12/22/2020 I10 Essential (primary) hypertension Berenice Azevedo, INTERIOR DESIGN PROFESSIONAL 12/22/2020 R00.8 Other abnormalities of heart maliha t Berenice Azevedo, INTERIOR DESIGN PROFESSIONAL 12/22/2020 N18.31 Chronic kidney disease, stage 3a Berenice Azevedo, INTERIOR DESIGN PROFESSIONAL 12/22/2020 G45.9 Transient cerebral ischemic elio ck, [...] unspecified Tita Land MD Plan of Treatment Future Appointment(s):* 06/18/2021 1:15 pm - Berenice Azevedo NP at DR. Tita Land 12/22/2020 - Berenice Azevedo NP* E11.22 Type 2 diabetes mellitus with diabetic chronic kidney disease* Comments:* 12/22/20- in office a1c= 6.2 % (6.8% 6.4%, 6.9%, 6.7%, 7.9% 7.5%, 7.1%, 7.2%7.1%,6.4%,6.5%, 6.4%, 5.7%.) Random BS= 213Manual Meter downloaded and reviewed- fasting- 92-141, bedtime- 118-179Has lost 8 lbs since last visit. Reviewed diet- breakfast- cereal or eggs or muffins, lunch- sandwich, dinner- meat, veggies- also using Glucerna 3-4/weekCurrent medications: Januvia 50 mg , Lantus 10 units qhs Will make no changes at this time. Goal A1c= < 8%RTO 6 months CBF * Follow up:* 6 months CBF * E78.00 Pure hypercholesterolemia, unspecified* Comments:* Goal for LDL <70 due to diabetes and CAD. On Atorvastatin 20 mg po qd. 09/25/2019- chol= 166, trig= 90, HDL= 51, LDL= 97 * I10 Essential (primary) hypertension* Comments:* Under control. BP 122/70 * R00.8 Other abnormalities of heart beat* Comments:* Sees Dr. Hand and did holter 10/2019( ordered by Dr. Barbour due to falls) Per pt, only PVC noted * N18.31 Chronic kidney disease, stage 3a* Comments:* Nephrology notes reviewed- 08/26/20Labs done 08/26/20- per nephrology- Scr= 1.6, GFR= 41, microcreat ratio= 27.3HH= 37.6/12.5 * G45.9 Transient cerebral ischemic attack, unspecified* Comments:* reported that he was seen at [facility] in transfer to [place] sometime in May with what sounds like [...]
--- OUTSIDE RECORDS SUMMARY | 2021-01-23 22:55 | CCD | Continuity of Care Document ---
Author Author Jose ELDER M.D. Organization Unknown Address [address] [place] [address] Phone [phone] Care Team Providers Care Sales Representative Education Courses Name Role Phone Christophe Ho M.D. AUTM [phone] Problems Active Problems Provider Date Chronic low [...] Available Procedures Date Code Description Status 01/15/2021 81783 Office/Outpatient Established Mo d MDM 30-39 Min Completed 09/02/2020 79753 Office/Outpatient Established Mo d MDM 30-39 Min Completed Medical Devices Description No Information Available Encounters Type Date Location Provider Dx Diagnosis Office Visit 01/15/2021 2:00p Main office - Des Elder M.D. 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 at Main office - [place] Functional Status Description No Information Available Mental Status Description No Information Available Referrals Description No Information Available
--- OUTSIDE RECORDS SUMMARY | 2021-01-23 22:55 | CCD | Continuity of Care Document ---
Author Author Jose EVANS MD Organization Unknown Address [address] [place] [address] Phone [phone] Care Team Providers Care Associate Professor Of History Name Role Phone Christophe Ho M.D. AUTM [phone] Shayan Hand MD (WTN) AUTM [phone] Thu Miles M.D. AUTM [phone] Clive Worrell M.D. AUTM [phone] Asa Barbour MD AUTM [phone] AUTM Unavailable AUTM Unavailable AUTM Unavailable Problems [...] CPT Code Status Date Vaccine Lot # 19676 Given 02/13/2015 Prevnar 13 21301 Given 12/31/2014 Influenza Virus Split 3 Yrs And Above For Intramuscular Use 65014 Given 01/28/2014 Influenza Virus Split 3 Yrs And Above For Intramuscular Use 11483 Given 02/22/2013 TB Intradermal Test 39033 Given 01/18/2013 Influenza Virus Split 3 Yrs And Above For Intramuscular Use Vital Signs Date Vital Result Comment 12/31/2020 1:22pm BP Systolic 130 mmHg BP Diastolic 80 mmHg Heart Rate 61 /min O2 % BldC Oximetry 99 % Height 70 inches 5'10" Weight 155.00 lb BMI (Body Mass Index) 22.2 kg/m2 [place] Body Weight 166 lb Weight 70.308 kg BSA (Body Surface Area) 1.87 m2 11/06/2020 11:18am BP Systolic 156 mmHg BP Diastolic 77 mmHg Heart Rate 59 /min Body Temperature 98.2 F Height 70 inches 5'10" Weight 155.00 lb BMI (Body Mass Index) 22.2 kg/m2 [place] Body Weight 166 lb Weight 70.308 kg BSA (Body Surface Area) 1.87 m2 Results Test Acquired Date Facility Test Result H/L Range Note [facility] 12/31/2020 [facility] SEE IMAGE FVC-Pred 3.90 L FVC-Pre 3.45 L FVC-%Pred-Pre 88 L FVC-LLN 2.97 L Fev1-Pred 2.74 L Fev1-Pre 1.96 L Fev1-%Pred-Pre 71 L Fev1-LLN 1.95 L Fev6-Pred 3.62 L Fev6-Pre 3.42 L Fev6-%Pred-Pre 94 L Fev6-LLN 2.72 L Vqp1moe-Mcid 71 % Rpj9rzt-Dgd 57 % Dxm2sft-%Pred-Pre 79 % Sfu1oda-QER 61 % Jmm3zwq-Glte 93 % Hlb0rrb-Ahb 99 % Fva5lwm-%Pred-Pre 106 % FEFMax-Pred 6.85 L/E/sec FEFMax-Pre 4.57 L/E/sec FEFMax-%Pred-Pre 66 L/E/sec FEFMax-LLN 4.52 L/E/sec Wpw9203-Xcsj 1.83 L/E/sec Mcz3576-Ntl 0.94 L/E/sec Dyp4788-%Pred-Pre 51 L/E/sec Zop8549-AES 0.22 L/E/sec ExpTime-Pre 6.61 sec Mtz7esa3-Ddqw 76 % Qzb2ouu8-Dfu 57 % Ggj0dnm8-%Pred-Pre 75 % Uzg8wku2-VAC 67 % Procedures Date Code Description Status 12/31/2020 55823 Office/Outpatient Established Mo d MDM 30-39 Min Completed 12/31/2020 26165 Spirometry Completed 11/06/2020 95696 Office/Outpatient Established Lo w MDM 20-29 Min Completed Medical Devices Description No Information Available Encounters Type Date Location Provider Dx Diagnosis Office Visit 12/31/2020 1:30p [facility] Pulmonary/Thoracic Lawrenc bailey Evans MD J44.9 Chronic obstructive pulmonary disease, u nspecified R91.8 Other nonspecific abnormal f inding of lung field Z79.02 rn long term care (current) use of a ntithrombotics/antiplatelets Office Visit 11/06/2020 11:00a [facility] Holland Forrest MD I73.9 Peripheral vascular disease, unspecified Assessments Date Code Description Provider 12/31/2020 J44.9 Chronic obstructive pulmonary di sease, unspecified Samir Evans MD 12/31/2020 R91.8 Other nonspecific abnormal findi ng of lung field Samir Evans MD 12/31/2020 Z79.02 rn long term care (current) use of antit hrombotics/antiplatelets Samir Evans MD 11/06/2020 I73.9 Peripheral vascular disease, uns pecified Holland Forrest MD Plan of Treatment Future Appointment(s):* 06/18/2021 2:30 pm - Samir Evans MD at [facility] Pulmonary/Thoracic 12/31/2020 - Samir Evans MD* J44.9 Chronic obstructive pulmonary disease, unspecified * R91.8 Other nonspecific abnormal finding of lung field * Z79.02 rn long term care (current) use of antithrombotics/antiplatelets * * New Labs:* FVL/[place], Ordered: 12/31/20 * Comments:* ~ At this point, he was applauded for his compliance. We discussed routine infection surveillance. He does carry his rescue inhaler, but really has not required it.~ He keeps his immunizations up to date.~ He said he has been doing yoga, and he feels he has benefited tremendously from this on multiple fronts, and I think it is an excellent idea for him to continue.~ He is to review all of his immunizations as outlined above, and make sure they are all up to date with the upcoming winter.~ If he is doing well, I will see him in a minimum of 6 months with spirometry, oximetry and flow volume loop for his underlying obstructive lung disease or, certainly, he can call me sooner if problems arise with which we can be of assistance. * Follow up:* Follow up in six months with spirometry, oximetry and flow volume loop. Functional Status Functional Condition Comment Date Status Independent with all ADL's Activ e Independent with all IADL's Acti ve Mental Status Mental Condition Comment Date Status Cognitive ability not impaired A ctive Referrals Description No Information Available
--- OUTSIDE RECORDS SUMMARY | 2021-01-23 22:55 | CCD | Continuity of Care Document ---
Author Author Jose CASTILLO Organization Unknown Address [address], [address] [place] [address] Phone [phone] Care Team Providers Care Pastry Cook Name Role Phone Christophe Ho MD [facility] [phone] Problems Description No Information Available Social History Type Date Description Comments Sex Unknown Tobacco Use Start: Unknown End: Unknown Former Cigarette Smo ker Quit 2000 ETOH Use Social Drinker Tobacco Use Start: Unknown End: Unknown Patient is a former smoker Sun Exposure moderate amount of sun exposure Sun Exposure Has never experienced blistering from sunburns Sun Exposure Has never used tanning bed Sun Exposure Uses 15-30 SPF Intermittently Allergies and adverse reactions Active Allergies Criticality Reaction | Severity Comments Date Cephalexin Unable to assess criticality 02/06/2018 Xanax Unable to assess criticality 02/06/2018 Sinemet Unable to assess criticality 09/09/2020 Inactive Allergies NKDA Unable to assess criticality 10/24/2013 Medications Active Medications SIG Qnty Indications Ordering Provide r Date Ketoconazole 2% Shampoo shampoo daily until scalp is clear, then 2-3 times per week for maintenance. 120ml L21.8 DEN King 09/09/2020 Bisoprolol Fumarate Unknown Terazosin HCL Unknown Plavix Unknown Up4 Probiotics Unknown Doxycycline Monohydrate Unknown 0 Colace Unknown Breo Ellipta Unknown Acetaminophen [place] Strength Unknow n Aspirin Adult Unknown Senna S Unknown Lantus Solostar Unknown 0 Doxepin HCL Unknown Atorvastatin Calcium Unknown Amlodipine Besylate Unknown Pantoprazole Sodium Unknown Januvia Unknown Allopurinol Unknown Repaglinide Unknown Miralax Unknown Spironolactone Unknown Budesonide Unknown Mucinex Unknown Immunizations Description No Information Available Vital Signs Date Vital Result Comment 10/01/2020 2:22pm BP Systolic 130 mmHg BP Diastolic 70 mmHg Weight 155.00 lb Height 71 inches 5'11" BMI (Body Mass Index) 21.6 kg/m2 09/09/2020 12:42pm BP Systolic 112 mmHg BP Diastolic 62 mmHg Weight 160.00 lb Respiratory Rate 17 /min Results Test Acquired Date Facility Test Result H/L Range Note L Neck #1 (3 Of 4) 09/09/2020 [facility] LC Icd9 Code ICD9 Code: C44.4 <SEE NOTE> 1, 2 PDFReport SEE IMAGE [address] Feng for Mohs B. Refer to Dr. Feng for Mohs C. Refer to Dr. Feng for Mohs D. Refer to Dr. Feng for Mohs letter awaiting signature LW 09/18/20 photos emailed, letter sent, awaiting appt LW 09/22/20 letter redone and sent to Dr Solorzano Appointment for 10/15/20 and 10/22/20 Jose aware per Gary all 4 sites have been treated and he will send notes LW 12/10/20 2 ICD9 Code: C44.41 Protocol: cristiana Clinical Text: BCC VS. AK VS. SCC IN SITU Final Diagnosis: BASAL CELL CARCINOMA, SUPERFICIAL MULTIFOCAL TYPE, EXTENDING TO ONE SIDE MARGIN AND TISSUE BASE. Gross Text: The specimen grossly was oval shaped, measuring 7 x 6 mm. on the surface and 1 mm. deep. It was divided into 2 sections on the long axis. All of the tissue was submitted for processing. Microscopic Description: Islands of basaloid cells are attached to the epidermal undersurface. CPT: 50138*4 Procedures Date Code Description Status 10/01/2020 02346 Destruction Of Lesions 2-14 Comp leted 10/01/2020 62192 Destruction Of Lesion First Comp leted 09/09/2020 30517 Office/Outpatient Established Mo d MDM 30-39 Min Completed 09/09/2020 90963 Each Separate/Additional Lesion Completed 09/09/2020 15299 Shave Biopsy Of Skin, Single Les ion Completed Medical Devices Description No Information Available Encounters Type Date Location Provider Dx Diagnosis Office Visit 09/09/2020 12:45p Main Office DEN King D48.5 Neoplasm of uncertain behavior of skin L57.0 Actinic keratosis L82.1 Other seborrheic keratosis L21.8 Other seborrheic dermatitis R23.4 Changes in skin texture Z85.828 Personal history of other ma lignant neoplasm of skin Z87.2 Personal history of diseases of the skin, subcu Z08 Encntr for follow-up exam af ter trtmt for malignant neoplasm C44.212 Basal cell carcinoma skin/ r ear and external auric canal C44.41 Basal cell carcinoma of skin of scalp and neck Assessments Date Code Description Provider 10/01/2020 L57.0 Actinic keratosis Fanta Alonzo lorenzo, HEMANTC 10/01/2020 L57.0 Actinic keratosis Amanda O'br ievinay, F.N.P. 09/09/2020 D48.5 Neoplasm of uncertain behavior o f skin DEN King 09/09/2020 L57.0 Actinic keratosis AARON Holt-C 09/09/2020 L82.1 Other seborrheic keratosis Masha aney AARON De La Torre-C 09/09/2020 L21.8 Other seborrheic dermatitis Danuta tanAARON Gamez-C 09/09/2020 R23.4 Changes in skin texture AARON Torres-C 09/09/2020 Z85.828 Personal history of other malign ant neoplasm of skin HEMANT KingC 09/09/2020 Z87.2 Personal history of diseases of the skin and subcutaneous ti HEMANT KingC 09/09/2020 Z08 Encounter for follow-up examinat ion after completed treatmen DEN King 09/09/2020 C44.212 Basal cell carcinoma of skin of right ear and external auricular canal DEN King 09/09/2020 C44.41 Basal cell carcinoma of skin of scalp and neck DEN King Plan of Treatment Future Appointment(s):* 03/10/2021 12:45 pm - DEN King at Main Office 10/01/2020 - Amanda Sun, Lucian.N.P.* L57.0 Actinic keratosis* Comments:* Discussed that actinic keratoses are precancerous proliferations that occur within sun damaged skin. If untreated, a small subset of AK's can develop into SCC's. LN2 to 2 AK's today. Discussed that the areas treated will get red, bubble up/blister, maybe get a little weepy, form a scab then heal. Wound care instruction sheet givenSunscreen use and sun protection discussed. Contact office if AK's fail to resolve despite treatment. Call with any problems * Follow up:* Has appointment Functional Status Description No Information Available Mental Status Description No Information Available Referrals Description No Information Available
--- OUTSIDE RECORDS SUMMARY | 2021-01-23 22:55 | CCD ---
Author Author [facility] Organization [facility] Address Unknown Phone Unavailable Care Team Providers Care Medical Advisor Name Role Phone Amari Solorzano Unavailable PROBLEMS Type Condition ICD9-CM Code PLN60-PK Code Onset Dates Condition S tatus W/U Status Risk SNOMED Code Notes Problem Essential hypertension I10 Active confirmed 74399749 Problem Congestive heart failure (CHF) I50.9 Active confir med 98254841 Problem Diabetes type 2, uncontrolled E11.65 Active confirm ed 630070157 Problem Crohn's disease in remission K50.90 Active confirme d 523224847 Problem Diabetes E11.9 Active confirmed 77997929 Problem Benign prostatic hyperplasia with lower urinary tract symptoms N40.1 Active confirmed 7536979090689 Problem H/O fall Z91.81 Active confirmed 128894391 Problem Unspecified open wound, left knee, subsequent encounter S81.002D Active confirmed 77643186220726136 Problem Crohns colitis, unspecified complication K50.119 Active confirmed 20480644 Problem Pure hypercholesterolemia E78.0 Active confirmed 453906126 Problem 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 Ac tive confirmed 253497544 Problem COPD (chronic obstructive pulmonary disease) J44.9 Active confirmed 73914366 Problem Coronary atherosclerosis of [place] coronary artery I25.10 Active confirmed 2540211575635 Problem Chronic kidney disease, stage 3 (moderate) N18.3 Active confirmed 890605718130 Problem COPD exacerbation J44.1 Active confirmed 19 2301089 Problem Crohn''s disease of large intestine without complication K50.10 Active confirmed 7275041 Problem Chronic bronchitis, unspecified chronic bronchitis type J42 Active confirmed 88646455 Problem Insomnia, unspecified type G47.00 Active confirmed 163845880 Problem Coronary artery disease invo lving [place] heart without angina pectoris, unspecified vessel or lesion type I25.10 Active confirmed 344579983043543 Problem Encounter for immunization Z23 Active confirmed 368489508 Problem Ganglion cyst of finger of right hand M67.441 Ac tive confirmed 587371591 Problem Type 2 diabetes mellitus with diabetic chronic kidney disease E11.22 Active confirmed 65501243 Problem Encounter for general adult medical exam ination with abnormal findings Z00.01 Active confirmed 349442128 Problem buttermaker helper current use of insulin Z79.4 Active conf irmed 062354413 Problem Other chronic pain G89.29 Active confirmed 8 7845242 Problem Skin tear of left elbow without complication, in itial encounter S51.012A Active confirmed 232941366 Problem 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 Active confirmed 217436488 Problem Laceration without foreign body, right l ower leg, subsequent encounter S81.811D Active confirmed 47337515548654226 Problem COLLIN (obstructive sleep apnea) G47.33 Active confirm ed 39474991 Problem Skin tear of left lower leg without complication , initial encounter S81.812A Active confirmed 157027966 Problem Internal derangement of right knee M23.91 Activ e confirmed 212878519769231 Problem Acute prostatitis N41.0 Active confirmed 79 076327 Problem Hematoma of left lower leg S80.12XA Active conf irmed 16576065753061420 Problem Depressive disorder, not elsewhere classified F32. 9 Active confirmed 75689568 Problem Skin tear of right lower leg without complicatio n, initial encounter S81.811A Active confirmed 173900987 Problem Skin tear of right forearm without complication, subsequent encounter S51.811D Active confirmed 970240804 Problem Tear of skin of right wrist, subsequent encounter S61.511D Active confirmed 473720684 Problem Skin tear of right lower leg without com plication, subsequent encounter S81.811D Active confirmed 348142733 Problem Insomnia G47.00 Active confirmed 891124788 Problem Unspecified open wound of right forearm, subsequ ent encounter S51.801D Active confirmed 52311244416901866 Problem Unspecified open wound of left forearm, subsequent enc ounter S51.802D Active confirmed 46794045489321966 Problem Unspecified open wound of right elbow, subsequent enco unter S51.001D Active confirmed 29804503407289703 Problem Unspecified open wound of left elbow, subsequent encounter S51.002D Active confirmed 03233008760176808 Problem Unspecified open wound, right lower leg, subsequ ent encounter S81.801D Active confirmed 35517996451321391 Problem Eczema L30.9 Active confirmed 74872487 Problem Unspecified open wound of left upper arm, subseq uent encounter S41.102D Active confirmed 02810617740040818 Problem Chronic cough R05 Active confirmed 311431 08 Problem Unspecified open wound of left hand, subsequent encounter S61.402D Active confirmed 08988621717432001 Problem Pulmonary nodule R91.1 Active confirmed 309 404668 Problem Unspecified open wound, right knee, subsequent encounter S81.001D Active confirmed 43157784267165926 Problem Gastroesophageal reflux disease, esophagitis pre sence not specified K21.9 Active confirmed 854062722 Problem Long-term insulin use Z79.4 Active confirmed 015661054 Problem 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.80 Active confirmed 716703796 Problem Renal cysts, acquired, bilateral N28.1 Active conf irmed 374835996 Problem Basal cell carcinoma of left side of neck C44.41 Active confirmed 718734863 Problem 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 Active confirmed 39155085161383958 Problem Atherosclerosis of [place] co ronary artery, angina presence unspecified, unspecified whether [place] or transplanted heart I25.10 A ctive confirmed 7362953489824 Problem 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 Active confirmed 37869842 Problem 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 Active confirmed 020718749 Problem Thoracic aneurysm without mention of rupture I71.2 Active confirmed 763541163 Problem Insomnia, unspecified G47.00 Active confirmed 519195248 Problem Unspecified open wound of le ft index finger without damage to nail, subsequent encounter S61.201D Active confirmed 36249555 514498335 Problem Chronic airway obstruction J44.9 Active confirmed 80498891 Problem Poor urinary stream R39.12 Active confirmed 069687786 Problem Contact dermatitis and other eczema, due to unspecified ca use L25.9 Active confirmed 67347199 Problem Renal calculus, bilateral N20.0 Active confirmed 22399063 Problem Other seborrheic dermatitis L21.8 Active confirmed 10337905 Problem Basal cell carcinoma of right postauricular region C44.212 Active confirmed 212561706 Problem Basal cell carcinoma of right preauricular region C44.319 Active confirmed 867613301 Problem H/O Meckel's diverticulum Z87.19 Active confirmed 748885432 ALLERGIES Allergen (clinical drug ingredient) Drug/Non Drug Allergy do cumented on EMR Reaction Allergy Type Onset Date Status carbidopa / levodopa Sinemet([facility] Code:[address]-55) reactio n per in hospital Drug Allergy Active alprazolam Xanax([place] Code:[address]-95) hullcanations Drug Allergy Active cephalexin Keflex([facility] Code:[address]-89) Rash Drug Allergy Active ENCOUNTERS from 1935 to 2020-12-10 Encounter Location Date Provider Diagnosis [facility] Dermatology 0 [facility] [phone] [place] [address] 08 Dec, 2020 [facility] Encounter for removal of sut ures Z48.02 IMMUNIZATIONS Vaccine Route Administration Date Status COVID-19 dose #1 given elsewhere Unspecified Unknown May 15, 2020 Administered Influenza (High Dose 65 & up) IM Intramuscular Jan 08, 2015 A dministered Influenza (High Dose 65 & up) IM Intramuscular Dec 11, 2015 A dministered Influenza (High Dose 65 & up) IM Intramuscular Feb 21, 2017 A dministered Influenza Pharmacy Given Unknown Jan 10, 2020 Refused Zoster 0.65mL Zostavax Unknown Nov 11, 2011 Administe red Zoster 0.65mL Zostavax SC Subcutaneous Nov 12, 2011 Administe red Influenza 18 yrs & older Flublok Unknown Jan 26, 2019 Administered Influenza 6mo & up Fluzone Unknown Jan 07, 2009 Admin istered Influenza 18 yrs & older Flublok IM Intramuscular Jan 27, 2018 Administered Influenza 18 yrs & older Flublok IM Intramuscular Jan 26, 2019 Administered Influenza 18 yrs & older Flublok IM Intramuscular Jan 11, 2020 Administered Pneumococcal Adult 0.5mL Pneumovax 23 Unknown Jan 07 09 Administered TDAP 0.5mL (Boostrix) IM Intramuscular October 26, 2011 Administe red Pneumococcal 0.5mL Prevnar 13 IM Intramuscular Feb 13, 2015 A dministered Influenza 6mo & up Fluzone IM Intramuscular Jan 31, 2014 Admi nistered Influenza 6mo & up Fluzone [...] Unknown Audit Question Answer Notes Total Score: 1 Interpretation: Alcohol Education Tenriism: Question Answer Notes Tenriism No jainism beliefs that would impact health care. Sexual [...] you last smoked? > 10 years updated 06/19/2020 REASON FOR REFERRAL No Information VITAL SIGNS No information MEDICATIONS Medication SIG (Take, Route, Frequency, Duration) Notes Start Da te End Date Status amLODIPine Besylate 10 MG 1 tablet Orally Once a day for 90 Active May Have - Rollator Oct, Active Budesonide 3 MG 1 cap Orally bid Act prosper Glucometer . as directed subcutaneously twice a day D X: DM uncontrolled E11.65 August, Active Glucose strip (Verio IQ) as directed ----- as directed Apr, Active Hannah-Bid Probiotic - 1 tab Orally bid for 90 days Jul, Active Docusate Sodium 100 MG 1 capsule as needed Orally Once a day Active Lancets ___ as directed subcutaneously four times daily as needed E11 .65 Active Propranolol HCl 20 MG 1 tablet Orally tid for tremor for 30 days Active Acetaminophen 500 MG 2 tablets as needed every 8 hrs 09 Ap 2019 Active Lantus solo star pen needles 10 uints E11.65 daily Mar, Active Senna 8.6 MG 1 tab Orally Once a day as needed Active Allopurinol 100 MG 1 tablet orally Daily Active Bacid - 1 cap Orally Daily Active Terazosin HCl 5 MG 1 capsule at bedtime Orally Once a day Jul, Active Januvia 25 mg 2tabs Orally Once a day Active Atorvastatin Calcium 40 MG 1 tablet Orally Once a day Active Fluticasone Furoate 200 MCG/ACT 1 puff Inhalation Once a day Active Aspirin 81 81 MG 1 tablet Orally Once a day Active Pantoprazole Sodium 40 MG TAKE ONE TABLET BY MOUTH RAYNE DAY orally Daily for 90 day(s) Active Centrum Silver Ultra Mens 1 tab orally Daily Active Spironolactone 25 mg 1 tab Orally Once a day for 90 day(s) Active Colace 100 MG 1 cap Orally bid Activ e Clindamycin HCl 300 MG 1 cap Orally bid for 10 day(s) 01 S 2020 Active Mucinex 600 MG 1 tablet as needed Orally every 12 hrs 30 O 2019 Active Flonase Allergy Relief 50 MCG/ACT 1 spray in each nostril Nasall y bid May, Active Breo Ellipta 200.25 1 puff Inhalation Once a day Active Incruse Ellipta 62.5 MCG/INH 1 puff Inhalation Once a day Active PROCEDURES from 1935 to 2020-12-10 Procedure Date Ordered Result Body Site Suture Removal 2020-12-10 N/A RESULTS No Results REASON FOR VISIT s/r viv MEDICAL (GENERAL) HISTORY Type Description Date Medical [...] History doing skin cancers MOH'S proce dure@ [facility] [address] Feng multiple removal s of skin cancer over the past 2 years 2055-[address]Raphael LUCAS procedure right ear 04/04 Surgical History [facility] dermatology alevism area 09/13/2019 Hospitalization History prostatitis 11/2010 Hospitalization History cardiac stents 01/2011& 02/2011 Hospitalization History resection of Meckel's 02/2012 Hospitalization History Pneumonia/COPD flare 2014 Hospitalization History syncope 08/04-08/12/15 Hospitalization History COPD - [facility] 08/21-08/27/15 Hospitalization History [facility]-cidtkvqjkww-lhgkklrf cut o n leg 10/27- Hospitalization History [facility] cough,SOB, exacerbation C OPD 03/03-03/09/2018 Hospitalization History [facility] ? stroke 05/31/2020 -06/05/2020 Hospitalization History [facility] 06/05/2020-06/17/19 21 Goals Section No Information Health Concerns No Information MEDICAL EQUIPMENT No Information MENTAL STATUS No Information FUNCTIONAL STATUS No Information ASSESSMENTS Encounter Date Diagnosis Assessment Notes Treatment Notes Treatm ent Clinical Notes Dec, Encounter for removal of sutures (ICD-10 - Z48.0 2) Well healed incision without evidence of infection to include erythema, purulent discharge or tenderness to palpation around site of healing. Patient currently without any specific complaints. After inspection, sutures were removed by non- physician office personnel. Non-physician office personnel reported that the removal went well and the patient left in stable condition. The patient was instructed to return to clinic anytime between 0700 and 1600 Tuesday-Tuesday for any issues relating to the site. If the dermatology clinic is not open, the patient was instructed to report to an emergency department. PLAN OF TREATMENT Medication Medication Name Sig Start Date Stop Date Clindamycin HCl 300 MG 1 cap Orally bid for 10 day(s) Dec, Treatment Notes Assessment Notes Clinical Notes Encounter for removal of sutures Well he aled incision without evidence of infection to include erythema, purulent discharge or tenderness to palpation around site of healing. Patient currently without any specific complaints. After inspection, sutures were removed by non-physician office personnel. Non- physician office personnel reported that the removal went well and the patient left in stable condition. The patient was instructed to return to clinic anytime between 0700 and 1600 Tuesday-Tuesday for any issues relating to the site. If the dermatology clinic is not open, the patient was instructed to report to an emergency department. Next Appt Details Provider Name:Christophe Ho, 2020-12-19 04 :00:00 PM, [address], , [place], [address], Provider Name:Asa Nielson Tyra, 2021-03-05 3 01:00:00 PM, [id number], , [place], [address], Insurance Providers Payer Name Payer Address Payer Phone Insured Name Patient Relati onship to Insured Coverage Start Date Coverage End Date BS [place] [facility] [address] [facility] [address] [place] [id number] MEDICARE Part A and B [address] [facility] [address] [phone] [place]ANSIS[place] HOOVER self 2004
--- OUTSIDE RECORDS SUMMARY | 2021-01-23 22:55 | CCD | Continuity of Care Document ---
Author Author Jose AZEVEDO LITHOGRAPHIC PRESS OPERATOR APPRENTICE Organization Unknown Address [address] [place] [address] Phone [phone] Care Team Providers Care Diaper Machine Tender Name Role Phone Christophe Ho MD [facility] [phone] Problems Active Problems Provider Date Chronic kidney [...] Qnty Indications Ordering Provide r Date Pen [place] 32G X 4 mm Misc use as [...] 6.8 Procedures Date Code Description Status 12/22/2020 09860 Office/Outpatient Established Mo d MDM 30-39 Min Completed 12/04/2020 [id number] Diabetic Foot Exam Completed 08/25/2020 18423 Office/Outpatient Established Mo d MDM 30-39 Min [...] di abetic chronic kidney disease Berenice Azevedo, LITHOGRAPHIC PRESS OPERATOR APPRENTICE 12/22/2020 E78.00 Pure hypercholesterolemia, unspe cified Berenice Azevedo, LITHOGRAPHIC PRESS OPERATOR APPRENTICE 12/22/2020 I10 Essential (primary) hypertension Berenice Azevedo, LITHOGRAPHIC PRESS OPERATOR APPRENTICE 12/22/2020 R00.8 Other abnormalities of heart maliha t Berenice Azevedo, LITHOGRAPHIC PRESS OPERATOR APPRENTICE 12/22/2020 N18.31 Chronic kidney disease, stage 3a Berenice Azevedo, LITHOGRAPHIC PRESS OPERATOR APPRENTICE 12/22/2020 G45.9 Transient cerebral ischemic elio ck, [...] Comments:* reported that he was seen at [facility] in transfer to [place] sometime in May with what sounds like [...]
--- OUTSIDE RECORDS SUMMARY | 2021-01-23 22:56 | CCD | Continuity of Care Document ---
Author Author Jose NELSON MD Organization Unknown Address [address] [facility], [address] [place] [address] Phone [phone] Care Team Providers Care Hook Up Name Role Phone Christophe Ho M.D. AUTM [phone] Shayan Hand MD (WTN) AUTM [phone] Thu Miles M.D. AUTM Clive Worrell M.D. AUTM [phone] Asa Barbour MD AUTM [phone] AUTM Unavailable AUTM Unavailable AUTM Unavailable Problems [...] Use Denies Drug Use Smoking Status Reviewed: 06/24/20 Patient is a former smoker hx : 1ppd since age 27, quit for 10 years in between, quit for good in 2002=30 pack years Allergies, Adverse Reactions, Alerts Active Allergies Reaction Severity Comments Date Cephalexin hives 02/10/2017 Infliximab Possible--recurrent/frequent lung infections 02/22/2017 Xanax HALLUCINATIONS 03/22/2019 Sinemet 06/24/2020 Inactive Allergies NKDA 10/01/2010 NKDA 01/08/2016 Medications Active Medications SIG Qnty Indications Ordering Provide r Date Breo Ellipta 200-25mcg/Inh Aerosol one inhalation daily 180units Samir Evans MD 07/04/2017 Incruse Ellipta 62.5mcg/Inh Aeroso l use [...] Unknown Probiotic Capsules 1 tab by mouth daily Unknown Lantus 100Unit/ML Solution 10 units daily Unknown Januvia 50mg Tablets 1 tab by mouth every day Unknown Allopurinol 100mg Tablets 1 tab by mouth every day Unknown Spironolactone 25mg Tablets 1/2 tab by mouth every day 30tabs Unknown Pantoprazole Sodium 40mg Tablets D R 1 tab by mouth every day 20tabs Unknown Amlodipine Besylate 10mg Tablets 1 po daily Unknown Atorvastatin Calcium 40mg Tablets 1 tab by mouth every day Unknown Immunizations CPT Code Status Date Vaccine Lot # [id number] Given 02/13/2015 Prevnar 13 29362 Given 12/31/2014 Influenza Virus Split 3 Yrs And Above For Intramuscular Use 49225 Given 01/28/2014 Influenza Virus Split 3 Yrs And Above For Intramuscular Use 66896 Given 02/22/2013 TB Intradermal Test 44711 Given 01/18/2013 Influenza Virus Split 3 Yrs And Above For Intramuscular Use Vital Signs Date Vital Result Comment 11/06/2020 11:18am BP Systolic 156 mmHg BP Diastolic 77 mmHg Heart Rate 59 /min Body Temperature 98.2 F Height 70 inches 5'10" Weight 155.00 lb BMI (Body Mass Index) 22.2 kg/m2 [place] Body Weight 166 lb Weight 70.308 kg BSA (Body Surface Area) 1.87 m2 06/24/2020 2:42pm BP Systolic 126 mmHg BP Diastolic 78 mmHg Heart Rate 67 /min O2 % BldC Oximetry 93 % Height 70 inches 5'10" Weight 164.00 lb BMI (Body Mass Index) 23.5 kg/m2 [place] Body Weight 166 lb Weight 74.390 kg BSA (Body Surface Area) 1.92 m2 Results Test Acquired Date Facility Test Result H/L Range Note FVL/[place] 06/24/2020 [employer] PD[facility]eport SEE IMAGE FVC-Pred 3.94 L FVC-Pre 2.90 L FVC-%Pred-Pre 73 L FVC-LLN 3.01 L Fev1-Pred 2.79 L Fev1-Pre 1.69 L Fev1-%Pred-Pre 60 L Fev1-LLN 2.00 L Fev6-Pred 3.67 L Fev6-Pre 2.90 L Fev6-%Pred-Pre 78 L Fev6-LLN 2.76 L Bmq7wjd-Eoiw 71 % Tcm8jpf-Kvd 58 % Eqw1ahb-%Pred-Pre 81 % Xpu0hka-XAX 61 % Uki3btd-Ceta 93 % Mpw2zkq-Mux 100 % Jts4lpb-%Pred-Pre 107 % FEFMax-Pred 6.98 L/E/sec FEFMax-Pre 3.94 L/E/sec FEFMax-%Pred-Pre 56 L/E/sec FEFMax-LLN 4.66 L/E/sec Yfg1740-Qtex 1.88 L/E/sec Jzx6999-Xvr 0.89 L/E/sec Ydu9709-%Pred-Pre 47 L/E/sec Vjx3371-PVJ 0.27 L/E/sec ExpTime-Pre 5.39 sec Uez5fbd1-Lftf 76 % Fef8qzb0-Dbf 58 % Vex3blr8-%Pred-Pre 76 % She1stk3-ROV 67 % Procedures Date Code Description Status 11/06/2020 74095 Office/Outpatient Established Lo w MDM 20-29 Min Completed 06/24/2020 37027 Office/Outpatient Established Mo d MDM 30-39 Min Completed 06/24/2020 92912 Spirometry Completed Medical Devices Description No Information Available Encounters Type Date Location Provider Dx Diagnosis Office Visit 11/06/2020 11:00a [facility] Holland Nelson MD I73.9 Peripheral vascular disease, unspecified Office Visit 06/24/2020 2:30p [facility] Pulmonary/Thoracic Lawrenc bailey Evans MD J44.9 Chronic obstructive pulmonary disease, u nspecified R91.8 Other nonspecific abnormal f inding of lung field 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/antiplatelets Assessments Date Code Description Provider 11/06/2020 I73.9 Peripheral vascular disease, uns pecified Holland Nelson MD 06/24/2020 J44.9 Chronic obstructive pulmonary di sease, unspecified Samir Evans MD 06/24/2020 R91.8 Other nonspecific abnormal findi ng of lung field Samir Evans MD 06/24/2020 Z79.02 [facility] (current) use of antit hrombotics/antiplatelets Samir Evans MD Plan of Treatment Future Appointment(s):* 12/31/2020 1:30 pm - Samir Evans MD at [facility] Pulmonary/Thoracic 11/06/2020 - Holland Nelson MD* I73.9 Peripheral vascular disease, unspecified Functional Status Functional Condition Comment Date Status Independent with all ADL's Activ e Independent with all IADL's Acti ve Mental Status Mental Condition Comment Date Status Cognitive ability not impaired A ctive Referrals Description No Information Available
--- OUTSIDE RECORDS SUMMARY | 2021-01-23 22:56 | CCD ---
Author Author [facility] Organization [facility] Address Unknown Phone Unavailable Care Team Providers Care Display Associate Name Role Phone Christophe Ho Unavailable PROBLEMS Type Condition ICD9-CM Code JUW26-XM Code Onset Dates Condition S tatus W/U Status Risk SNOMED Code Notes Problem Pure hypercholesterolemia E78.0 Active confirmed 063835355 Problem COPD (chronic obstructive pulmonary disease) J44.9 Active confirmed 60284048 Problem Coronary atherosclerosis of stebbins coronary artery I25.10 Active confirmed 3252953079179 Problem Diabetes type 2, uncontrolled E11.65 Active confirm ed 541090924 Problem Essential hypertension I10 Active confirmed 77944190 Problem Unspecified open wound, right knee, subsequent encounter S81.001D Active confirmed 50802954186474134 Problem Gastroesophageal reflux disease, esophagitis pre sence not specified K21.9 Active confirmed 913039921 Problem Unspecified open wound, right lower leg, subsequ ent encounter S81.801D Active confirmed 62561703903780581 Problem Eczema L30.9 Active confirmed 82807964 Problem Crohns colitis, unspecified complication K50.119 Active confirmed 70717084 Problem Pulmonary nodule R91.1 Active confirmed 309 266268 Problem 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 Ac tive confirmed 812586966 Problem H/O fall Z91.81 Active confirmed 398591761 Problem Type 2 diabetes mellitus with diabetic chronic kidney disease E11.22 Active confirmed 06531959 Problem Encounter for general adult medical exam ination with abnormal findings Z00.01 Active confirmed 585913827 Problem COPD exacerbation J44.1 Active confirmed 19 6528428 Problem 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.4 Active conf irmed 569405129 Problem Chronic bronchitis, unspecified chronic bronchitis type J42 Active confirmed 16544076 Problem Chronic kidney disease, stage 3 (moderate) N18.3 Active confirmed 523674025653 Problem Diabetes E11.9 Active confirmed 85527757 Problem Congestive heart failure (CHF) I50.9 Active confir med 96139154 Problem Ganglion cyst of finger of right hand M67.441 Ac tive confirmed 148632777 Problem Crohn's disease in remission K50.90 Active confirme d 294720057 Problem Encounter for immunization Z23 Active confirmed 944542213 Problem Skin tear of right lower leg without complicatio n, initial encounter S81.811A Active confirmed 600784476 Problem Tear of skin of right wrist, subsequent encounter S61.511D Active confirmed 397040475 Problem Skin tear of right lower leg without com plication, subsequent encounter S81.811D Active confirmed 070099191 Problem 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 Active confirmed 408487490 Problem Other chronic pain G89.29 Active confirmed 8 3865914 Problem Skin tear of left lower leg without complication , initial encounter S81.812A Active confirmed 433871873 Problem Insomnia G47.00 Active confirmed 005138048 Problem Skin tear of left elbow without complication, in itial encounter S51.012A Active confirmed 307904225 Problem Coronary artery disease invo lving stebbins heart without angina pectoris, unspecified vessel or lesion type I25.10 Active confirmed 413061715202419 Problem Crohn''s disease of large intestine without complication K50.10 Active confirmed 6233895 Problem Skin tear of right forearm without complication, subsequent encounter S51.811D Active confirmed 239268031 Problem Insomnia, unspecified type G47.00 Active confirmed 255625642 Problem 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 Active confirmed 36388038349333100 Problem 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 Active confirmed 434743243 Problem Unspecified open wound of left forearm, subsequent enc ounter S51.802D Active confirmed 06910275177204042 Problem Unspecified open wound of le ft index finger without damage to nail, subsequent encounter S61.201D Active confirmed 66934832 768251244 Problem Unspecified open wound of left elbow, subsequent encounter S51.002D Active confirmed 07933225435022824 Problem Contact dermatitis and other eczema, due to unspecified ca use L25.9 Active confirmed 84373267 Problem Unspecified open wound of right forearm, subsequ ent encounter S51.801D Active confirmed 76775167744149378 Problem Other seborrheic dermatitis L21.8 Active confirmed 56532722 Problem Unspecified open wound of left upper arm, subseq uent encounter S41.102D Active confirmed 06710581479482366 Problem Chronic cough R05 Active confirmed 663724 08 Problem Unspecified open wound of right elbow, subsequent enco unter S51.001D Active confirmed 67038138155556519 Problem H/O Meckel's diverticulum Z87.19 Active confirmed 605434756 Problem Unspecified open wound of left hand, subsequent encounter S61.402D Active confirmed 00607371859017689 Problem Unspecified open wound, left knee, subsequent encounter S81.002D Active confirmed 62239256663431347 Problem Benign prostatic hyperplasia with lower urinary tract symptoms N40.1 Active confirmed 7973828978028 Problem Renal calculus, bilateral N20.0 Active confirmed 83127237 Problem Hematoma of left lower leg S80.12XA Active conf irmed 99853349328607612 Problem Depressive disorder, not elsewhere classified F32. 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 Active confirmed 89644237 Problem Laceration without foreign body, right l ower leg, subsequent encounter S81.811D Active confirmed 64316552159904659 Problem COLLIN (obstructive sleep apnea) G47.33 Active confirm ed 08957431 Problem Thoracic aneurysm without mention of rupture I71.2 Active confirmed 382403650 Problem Internal derangement of right knee M23.91 Activ e confirmed 024368732622047 Problem Acute prostatitis N41.0 Active confirmed 79 170987 Problem Long-term insulin use Z79.4 Active confirmed 053073207 Problem Chronic airway obstruction J44.9 Active confirmed 99131977 Problem 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.80 Active confirmed 807949794 Problem Atherosclerosis of stebbins co ronary artery, angina presence unspecified, unspecified whether stebbins or transplanted heart I25.10 A ctive confirmed 6521503580594 Problem Renal cysts, acquired, bilateral N28.1 Active conf irmed 249656833 Problem Poor urinary stream R39.12 Active confirmed 246514874 Problem Insomnia, unspecified G47.00 Active confirmed 940331506 ALLERGIES Allergen (clinical drug ingredient) Drug/Non Drug Allergy do cumented on EMR Reaction Allergy Type Onset Date Status carbidopa / levodopa Sinemet([facility] Code:[address]-31) reactio n per in hospital Drug Allergy Active alprazolam Xanax([facility] Code:[address]-01) hullcanations Drug Allergy Active cephalexin Keflex([facility] Code:[address]-87) Rash Drug Allergy Active ENCOUNTERS from 1935 to 2020-11-26 Encounter Location Date Provider Diagnosis [facility] Fernando HIGH [phone] [place] [address] Nov, Christophe Cotterh IMMUNIZATIONS Vaccine Route Administration Date Status COVID-19 [...] Notes Total Score: 1 Interpretation: Alcohol Education Evangelical: Question Answer Notes Evangelical No shinto beliefs that would impact health care. Sexual [...] Notes Start Da te End Date Status Allopurinol 100 MG 1 tablet orally Daily Active Mucinex 600 MG 1 tablet as needed Orally every 12 hrs 30 O 2019 Active Propranolol HCl 20 MG 1 tablet Orally tid for tremor for 30 days Active Glucose strip (Verio IQ) as directed ----- as directed Apr, Active Colace 100 MG 1 cap Orally bid Activ e Incruse Ellipta 62.5 MCG/INH 1 puff Inhalation Once a day Active Atorvastatin Calcium 40 MG 1 tablet Orally Once a day Active Flonase Allergy Relief 50 MCG/ACT 1 spray in each nostril Nasall y bid May, Active Pantoprazole Sodium 40 MG TAKE ONE TABLET BY MOUTH RAYNE RY DAY orally Daily for 90 day(s) Active Breo Ellipta 200.25 1 puff Inhalation Once a day Active Bacid - 1 cap Orally Daily Active Senna 8.6 MG 1 tab Orally Once a day as needed Active Glucometer . as directed subcutaneously twice a day D X: DM uncontrolled E11.65 August, Active Hannah-Bid Probiotic - 1 tab Orally bid for 90 days Jul, Active Aspirin 81 81 MG 1 tablet Orally Once a day Active Centrum Silver Ultra Mens 1 tab orally Daily Active Budesonide 3 MG 1 cap Orally bid Act prosper Acetaminophen 500 MG 2 tablets as needed every 8 hrs 09 2019 Active Lantus solo star pen needles 10 uints E11.65 daily Mar, Active May Have - Rollator Oct, Active Fluticasone Furoate 200 MCG/ACT 1 puff Inhalation Once a day Active Docusate Sodium 100 MG 1 capsule as needed Orally Once a day Active Terazosin HCl 5 MG 1 capsule at bedtime Orally Once a day Jul, Active Lancets ___ as directed subcutaneously four times daily as needed E11 .65 Active Januvia 25 mg 2tabs Orally Once a day Active amLODIPine Besylate 10 MG 1 tablet Orally Once a day for 90 Active Spironolactone 25 mg 1 tab Orally Once a day for 90 day(s) Active PROCEDURES No Information RESULTS No Results REASON FOR VISIT refill propanolol 20 mg MEDICAL (GENERAL) HISTORY Type Description Date Medical [...] Surgical History doing skin cancers MOH'S proce nhung@ [facility] [address] Feng multiple removal s of skin cancer over the past 2 years 7175-[address]Raphael LUCAS procedure right ear 04/04 Surgical History [facility]ology [place] 09/13/2019 Hospitalization History prostatitis 11/2010 Hospitalization History cardiac stents 01/2011& 02/2011 Hospitalization History resection of Meckel's 02/2012 Hospitalization History Pneumonia/COPD flare 2014 Hospitalization History syncope 08/04-08/12/15 Hospitalization History COPD - [facility] 08/21-08/27/15 [facility] History [facility]-yfbdkytpyod-czghllgp cut o n leg 10/27- [facility] cough,SOB, exacerbation C [facility] 03/03-03/09/2018 Hospitalization History [facility] ? stroke 05/31/2020 -06/05/2020 Hospitalization History [facility] 06/05/2020-06/17/19 Goals Section No Information Health Concerns No Information MEDICAL EQUIPMENT No Information MENTAL STATUS No Information FUNCTIONAL STATUS No Information ASSESSMENTS No Information PLAN OF TREATMENT Medication Medication Name Sig Start Date Stop Date Hannah-Bid Probiotic - 1 tab Orally bid for 90 days Jul, May Have - Rollator Oct, Pantoprazole Sodium 40 MG TAKE ONE TABLET BY MOUTH RAYNE RY DAY orally Daily for 90 day(s) Propranolol HCl 20 MG 1 tablet Orally tid for tremor for 30 days Next Appt Details Provider Name:Amari Solorzano, 11-27 01:00:00 PM, [address] [place] [address], , [place], [address], Provider Name:Amari Solorzano, 12-03 01:00:00 PM, [address] [place] [address], , [place], [address], Provider Name:Christophe Ho, 2020-12-19 04 :00:00 PM, [address] [place] [address], , [place], [address], Provider Name:Asa Mary, 2021-03-05 3 01:00:00 PM, [address], , [place], [address], Insurance Providers Payer Name Payer Address Payer Phone Insured Name Patient Relati onship to Insured Coverage Start Date Coverage End Date MEDICARE Part A and B [address] [facility] [phone] FRANSISCA HOOVER self 2004 BS [place] [id number] [address] [place] [address] [phone] FRANSISCA HOOVER [id number]
--- OUTSIDE RECORDS SUMMARY | 2021-01-23 22:56 | CCD | Continuity of Care Document ---
Author Author Jose NELSON MD Organization Unknown Address [address], [address] [place] [address] Phone [phone] Care Team Providers Care [facility] Specialist Name Role Phone Christophe Ho M.D. AUTM [phone] Shayan Hand MD (WTN) AUTM [phone] Thu Miles M.D. AUTM Clive Worrell M.D. AUTM [phone] Asa Barbour MD AUTM [phone] AUTM Unavailable AUTM Unavailable AUTM Unavailable Problems Active Problems Provider Date Crohn's disease of small intestine Clive Worrell MD Onset : 06/22/2012 Nonspecific(Abnormal)Findings On Radiological,Gastro Tract D rose Worrell MD Onset: 06/22/2012 Intestinal obstruction Clive Worrell MD Onset: 06/22/2012 Disorder of intestine Cliev Worrell MD Onset: 06/22/2012 Gastric ulcer without hemorrhage, without perforation AND without obstruction Clive Worrell MD Onset: 06/22/2012 Stricture of esophagus Clive Worrell MD Onset: 06/22/2012 Diverticular disease of colon Clive Worrell MD Onset: H/O: peptic ulcer Clive Worrell MD Onset: 06/22/2012 Disorder of stomach Clive Worrell MD Onset: 06/22/2012 Diarrhea Cliev Worrell MD Onset: 06/22/2012 Internal hemorrhoids without [...] CPT Code Status Date Vaccine Lot # [id number] Given 02/13/2015 Prevnar 13 71466 Given 12/31/2014 Influenza Virus Split 3 Yrs And Above For Intramuscular Use 65407 Given 01/28/2014 Influenza Virus Split 3 Yrs And Above For Intramuscular Use 52431 Given 02/22/2013 TB Intradermal Test 08732 Given 01/18/2013 Influenza Virus Split 3 Yrs And Above For Intramuscular Use Vital Signs Date Vital Result Comment 11/06/2020 11:18am BP Systolic 156 mmHg BP Diastolic 77 mmHg Heart Rate 59 /min Body Temperature 98.2 F Height 70 inches 5'10" Weight 155.00 lb BMI (Body Mass Index) 22.2 kg/m2 [place] Body Weight 166 lb Weight 70.308 kg BSA (Body Surface Area) 1.87 m2 06/24/2020 2:42pm BP Systolic 126 mmHg BP Diastolic 78 mmHg Heart Rate 67 /min O2 % BldC Oximetry 93 % Height 70 inches 5'10" Weight 164.00 lb BMI (Body Mass Index) 23.5 kg/m2 [place] Body Weight 166 lb Weight 74.390 kg BSA (Body Surface Area) 1.92 m2 Results Test Acquired Date Facility Test Result H/L Range Note FVL/[place] 06/24/2020 [employer] [facility] SEE IMAGE FVC-Pred 3.94 L FVC-Pre 2.90 L FVC-%Pred-Pre 73 L FVC-LLN 3.01 L Fev1-Pred 2.79 L Fev1-Pre 1.69 L Fev1-%Pred-Pre 60 L Fev1-LLN 2.00 L Fev6-Pred 3.67 L Fev6-Pre 2.90 L Fev6-%Pred-Pre 78 L Fev6-LLN 2.76 L Qin2gbn-Lwcz 71 % Sog2wsj-Nfb 58 % Vzs8qhq-%Pred-Pre 81 % Udu8sdy-XMS 61 % Ows6ych-Rwxt 93 % Acg4igm-Mei 100 % Zhz0qos-%Pred-Pre 107 % FEFMax-Pred 6.98 L/E/sec FEFMax-Pre 3.94 L/E/sec FEFMax-%Pred-Pre 56 L/E/sec FEFMax-LLN 4.66 L/E/sec Tvo7314-Pkui 1.88 L/E/sec Uqk9320-Rlk 0.89 L/E/sec Shn3428-%Pred-Pre 47 L/E/sec Ogi3401-YNX 0.27 L/E/sec ExpTime-Pre 5.39 sec Ccv1zgz1-Oseq 76 % Syu2kkn1-Qaf 58 % Ghr8pdq8-%Pred-Pre 76 % Ilo5cee9-UYF 67 % Procedures Date Code Description Status 06/24/2020 27901 Office/Outpatient Established Mo d MDM 30-39 Min Completed 06/24/2020 15567 Spirometry Completed Medical Devices Description No Information Available Encounters Type Date Location Provider Dx Diagnosis Office Visit 06/24/2020 2:30p 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 Pulmonary/Thoracic 11/06/2020 - Holland eNlson MD* I73.9 Peripheral vascular disease, unspecified Functional Status Functional Condition Comment Date Status Independent with all ADL's Activ e Independent with all IADL's Acti ve Mental Status Mental Condition Comment Date Status Cognitive ability not impaired A ctive Referrals Description No Information Available
--- OUTSIDE RECORDS SUMMARY | 2021-01-23 22:56 | CCD ---
Author Author [facility] Organization [facility] Address Unknown Phone Unavailable Care Team Providers Care Electronics Production Supervisor Name Role Phone Amari Solorzano Unavailable PROBLEMS Type Condition ICD9-CM Code SGX09-VR Code Onset Dates Condition S tatus W/U Status Risk SNOMED Code Notes Problem Essential hypertension I10 Active confirmed 87269289 Problem Congestive heart failure (CHF) I50.9 Active confir med 11242331 Problem Diabetes type 2, uncontrolled E11.65 Active confirm ed 266381808 Problem Crohn's disease in remission K50.90 Active confirme d 642012351 Problem Diabetes E11.9 Active confirmed 82078397 Problem Benign prostatic hyperplasia with lower urinary tract symptoms N40.1 Active confirmed 5331964537437 Problem H/O fall Z91.81 Active confirmed 400115819 Problem Unspecified open wound, left knee, subsequent encounter S81.002D Active confirmed 99170699419107619 Problem Crohns colitis, unspecified complication K50.119 Active confirmed 79110328 Problem Pure hypercholesterolemia E78.0 Active confirmed 467643720 Problem 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 Ac tive confirmed 349511819 Problem COPD (chronic obstructive pulmonary disease) J44.9 Active confirmed 85079846 Problem Coronary atherosclerosis of [place] coronary artery I25.10 Active confirmed 6973051929824 Problem Chronic kidney disease, stage 3 (moderate) N18.3 Active confirmed 163425892909 Problem COPD exacerbation J44.1 Active confirmed 19 6329830 Problem Crohn''s disease of large intestine without complication K50.10 Active confirmed 6943634 Problem Chronic bronchitis, unspecified chronic bronchitis type J42 Active confirmed 51420258 Problem Insomnia, unspecified type G47.00 Active confirmed 795809001 Problem Coronary artery disease invo lving [place] heart without angina pectoris, unspecified vessel or lesion type I25.10 Active confirmed 024928119576094 Problem Encounter for immunization Z23 Active confirmed 513196228 Problem Ganglion cyst of finger of right hand M67.441 Ac tive confirmed 431513119 Problem Type 2 diabetes mellitus with diabetic chronic kidney disease E11.22 Active confirmed 20427796 Problem Encounter for general adult medical exam ination with abnormal findings Z00.01 Active confirmed 872863945 Problem 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.4 Active conf irmed 729808389 Problem Other chronic pain G89.29 Active confirmed 8 7032718 Problem Skin tear of left elbow without complication, in itial encounter S51.012A Active confirmed 114076607 Problem 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 Active confirmed 556589450 Problem Laceration without foreign body, right l ower leg, subsequent encounter S81.811D Active confirmed 23070053069004955 Problem COLLIN (obstructive sleep apnea) G47.33 Active confirm ed 91337937 Problem Skin tear of left lower leg without complication , initial encounter S81.812A Active confirmed 504412237 Problem Internal derangement of right knee M23.91 Activ e confirmed 136301463998647 Problem Acute prostatitis N41.0 Active confirmed 79 414756 Problem Hematoma of left lower leg S80.12XA Active conf irmed 45111424439784136 Problem Depressive disorder, not elsewhere classified F32. 9 Active confirmed 12144410 Problem Skin tear of right lower leg without complicatio n, initial encounter S81.811A Active confirmed 968300783 Problem Skin tear of right forearm without complication, subsequent encounter S51.811D Active confirmed 550992626 Problem Tear of skin of right wrist, subsequent encounter S61.511D Active confirmed 421685697 Problem Skin tear of right lower leg without com plication, subsequent encounter S81.811D Active confirmed 351409048 Problem Insomnia G47.00 Active confirmed 947507478 Problem Unspecified open wound of right forearm, subsequ ent encounter S51.801D Active confirmed 45043740678016038 Problem Unspecified open wound of left forearm, subsequent enc ounter S51.802D Active confirmed 58347764903533294 Problem Unspecified open wound of right elbow, subsequent enco unter S51.001D Active confirmed 23294133951637198 Problem Unspecified open wound of left elbow, subsequent encounter S51.002D Active confirmed 60043773419053850 Problem Unspecified open wound, right lower leg, subsequ ent encounter S81.801D Active confirmed 74335842611487102 Problem Eczema L30.9 Active confirmed 42054078 Problem Unspecified open wound of left upper arm, subseq uent encounter S41.102D Active confirmed 49633922548803053 Problem Chronic cough R05 Active confirmed 642550 08 Problem Unspecified open wound of left hand, subsequent encounter S61.402D Active confirmed 87756458167111168 Problem Pulmonary nodule R91.1 Active confirmed 309 228819 Problem Unspecified open wound, right knee, subsequent encounter S81.001D Active confirmed 06868161175404905 Problem Gastroesophageal reflux disease, esophagitis pre sence not specified K21.9 Active confirmed 095196821 Problem Long-term insulin use Z79.4 Active confirmed 853694072 Problem 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.80 Active confirmed 207770669 Problem Renal cysts, acquired, bilateral N28.1 Active conf irmed 567878630 Problem Basal cell carcinoma of left side of neck C44.41 Active confirmed 733216186 Problem 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 Active confirmed 86615678954504364 Problem Atherosclerosis of [place] co ronary artery, angina presence unspecified, unspecified whether [place] or transplanted heart I25.10 A ctive confirmed 6477860007801 Problem 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 Active confirmed 04674464 Problem 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 Active confirmed 219592173 Problem Thoracic aneurysm without mention of rupture I71.2 Active confirmed 460584487 Problem Insomnia, unspecified G47.00 Active confirmed 581900926 Problem Unspecified open wound of le ft index finger without damage to nail, subsequent encounter S61.201D Active confirmed 96152118 688075435 Problem Chronic airway obstruction J44.9 Active confirmed 72543735 Problem Poor urinary stream R39.12 Active confirmed 130415307 Problem Contact dermatitis and other eczema, due to unspecified ca use L25.9 Active confirmed 51592566 Problem Renal calculus, bilateral N20.0 Active confirmed 96782812 Problem Other seborrheic dermatitis L21.8 Active confirmed 01595815 Problem Basal cell carcinoma of right postauricular region C44.212 Active confirmed 160660596 Problem Basal cell carcinoma of right preauricular region C44.319 Active confirmed 885523527 Problem H/O Meckel's diverticulum Z87.19 Active confirmed 272563983 ALLERGIES Allergen (clinical drug ingredient) Drug/Non Drug Allergy do cumented on EMR Reaction Allergy Type Onset Date Status carbidopa / levodopa Sinemet([facility] Code:[address]-36) reactio n per in hospital Drug Allergy Active alprazolam Xanax([place] Code:[address]-98) hullcanations Drug Allergy Active cephalexin Keflex([facility] Code:[address]-78) Rash Drug Allergy Active ENCOUNTERS from 1935 to 2020-12-04 Encounter Location Date Provider Diagnosis [facility] Dermatology 0 [facility] [phone] [place] [address] Dec, Amari Miletta Basal cell carcinoma of left side of neck C44.41 and Visit for suture removal Z48.02 IMMUNIZATIONS Vaccine Route Administration Date Status Influenza (High Dose 65 & up) IM Intramuscular Dec 11, 2015 A dministered Influenza 18 yrs & older Flublok Unknown Jan 26, 2019 Administered COVID-19 dose #1 given elsewhere Unspecified Unknown May 15, 2020 Administered Influenza (High Dose 65 & up) IM Intramuscular Feb 21, 2017 A dministered Influenza Pharmacy Given Unknown Jan 10, 2020 Refused Zoster 0.65mL Zostavax Unknown Nov 11, 2011 Administe red Zoster 0.65mL Zostavax SC Subcutaneous Nov 12, 2011 Administe red Influenza (High Dose 65 & up) IM Intramuscular Jan 08, 2015 A dministered Influenza 6mo & up [...] Notes Total Score: 1 Interpretation: Alcohol Education Jehovah'S Witness: Question Answer Notes Jehovah'S Witness No orthodoxy beliefs that would impact health care. Sexual [...] FOR REFERRAL No Information VITAL SIGNS Weight 160 lbs Dec, Weight-kg 72.58 kg Dec, Height 71" in Dec, BMI 22.31 kg/m2 Dec, Blood pressure systolic 148 mm Hg Dec, Blood pressure diastolic 68 mm Hg Dec, MEDICATIONS Medication SIG (Take, [...] Orally bid for 10 day(s) S 2020 Active Mucinex 600 MG 1 tablet as needed Orally every 12 hrs 30 O 2019 Active Flonase Allergy Relief 50 MCG/ACT 1 spray in each nostril Nasall y bid May, Active Breo Ellipta 200.25 1 puff Inhalation Once a day Active Incruse Ellipta 62.5 MCG/INH 1 puff Inhalation Once a day Active PROCEDURES from 1937 to 2020-12-04 Procedure Date Ordered Result Body Site Med: Derm Lidocaine with Epinephrine Inj ection 1% with 2 ml sodium bicarbonate Intradermally to marked areas 2020-12-03 N/A Suture Removal 2020-12-03 N/A RESULTS No Results REASON FOR VISIT BCC, left neck #1, BCC, left neck #2 MEDICAL (GENERAL) HISTORY Type Description Date Medical [...] History doing skin cancers MOH'S proce dure@ [facility] [address] Feng multiple removal s of skin cancer over the past 2 years 9593-[address]Raphael LUCAS procedure right ear 04/04 Surgical History [facility] dermatology sabianist area 09/13/2019 Hospitalization History prostatitis 11/2010 Hospitalization History cardiac stents 01/2011& 02/2011 Hospitalization History resection of Meckel's 02/2012 Hospitalization History Pneumonia/COPD flare 2014 Hospitalization History syncope 08/04-08/12/15 Hospitalization History COPD - [facility] 08/21-08/27/15 Hospitalization History [facility] cut o n leg 10/27- Hospitalization History [facility] cough,SOB, exacerbation C OPD 03/03-03/09/2018 Hospitalization History [facility] ? stroke 05/31/2020 -06/05/2020 Hospitalization History [facility] 06/05/2020-06/17/19 21 Goals Section No Information Health Concerns No Information MEDICAL EQUIPMENT No Information MENTAL STATUS No Information FUNCTIONAL STATUS No Information ASSESSMENTS Encounter Date Diagnosis Assessment Notes Treatment Notes Treatm ent Clinical Notes Dec, Basal cell carcinoma of left side of neck (ICD-1 0 - C44.41) left neck #1 [place] protocol was followed in compliance with [facility] standards. Mohs Micrographic Surgeon operated in two distinct and integrated capacities as the surgeon and the pathologist. The areas was prepped with chlorhexidine. The tumor was visualized, compared against relevant records, and confirmed with the patient. The agreed upon area anesthetized with lidocaine 1% with epinephrine. Once anesthetized, the area was lightly curetted with a 3mm curette to better define tumor size. A 2mm rim of normal tissue was marked and an incision at a 45 degree angle following standard Mohs approach was performed and the specimen harvested as a microscopic controlled layer. Hemostasis was achieved with electrocautery. Estimated blood loss was 5mL.The specimen was oriented, chromacoded, mapped, and placed in 1 block. Each section was processed in the Mohs Laboratory using Mohs protocol and submitted for frozen section. Please see scanned Mohs map for appropriate use criteria score greater than or equal to 7 and pathology report. Frozen section analysis of the four quadrants showed the followin quadrants, 0 positive. left neck #2 mUniversal protocol was followed in compliance with [facility] standards. Mohs Micrographic Surgeon operated in two distinct and integrated capacities as the surgeon and the pathologist. The areas was prepped with chlorhexidine. The tumor was visualized, compared against relevant records, and confirmed with the patient. The agreed upon area anesthetized with lidocaine 1% with epinephrine. Once anesthetized, the area was lightly curetted with a 3mm curette to better define tumor size. A 2mm rim of normal tissue was marked and an incision at a 45 degree angle following standard Mohs approach was performed and the specimen harvested as a microscopic controlled layer. Hemostasis was achieved with electrocautery. Estimated blood loss was 5mL.The specimen was oriented, chromacoded, mapped, and placed in 1 block. Each section was processed in the Mohs Laboratory using Mohs protocol and submitted for frozen section. Please see scanned Mohs map for appropriate use criteria score greater than or equal to 7 and pathology report. Frozen section analysis of the four quadrants showed the followin quadrants, 0 positive. Procedure: Complex repair. The wound was then widely undermined with superficial margin undermined greater than the width of the initial wound. A plication suture was placed in a horizontal fashion to the deep fascia. Wound was then closed in a multilayered fashion with deep buried absorbable sutures. Superficial approximation of tissue was accomplished non-absorbable sutures. The wound was cleaned, Vaseline placed, and a pressure dressing applied to immobilize the wound and aid in hemostasis. Patient was instructed on wound care and directed to f/u for suture removal as below. The patient was instructed to return to clinic sooner for signs of symptoms of infection to include erythema, draining fluid or pain to palpation. There was no noted significant difference from baseline pain score after procedure. Post-operative pain management plan discussed and patient will take acetaminophen 650mg every four hours as needed. The patient left the operating suite alert and fully oriented. Follow-up discussed. Procedure Management: Deep Sutures: 5-0 monocryl Superficial Sutures: 4-0 prolene Final length of incision [8.2 ]cm Suture Removal: [ 7] days Dec, 2020 Visit for suture removal (ICD-10 - Z48.02) Well healed incision without evidence of infection [...] Dec, Treatment Notes Assessment Notes Clinical Notes Basal cell carcinoma of left side of neck left neck #1Universal protocol was followed in compliance with [facility] standards. Mohs Micrographic Surgeon operated in two distinct and integrated capacities as the surgeon and the pathologist. The areas was prepped with chlorhexidine. The tumor was visualized, compared against relevant records, and confirmed with the patient. The agreed upon area anesthetized with lidocaine 1% with epinephrine. Once anesthetized, the area was lightly curetted with a 3mm curette to better define tumor size. A 2mm rim of normal tissue was marked and an incision at a 45 degree angle following standard Mohs approach was performed and the specimen harvested as a microscopic controlled layer. Hemostasis was achieved with electrocautery. Estimated blood loss was 5mL.The specimen was oriented, chromac dorothy, mapped, and placed in 1 block. Each section was processed in the Mohs Laboratory using Mohs protocol and submitted for frozen section. Please see scanned Mohs map for appropriate use criteria score greater than or equal to 7 and pathology report. Frozen section analysis of the four quadrants showed the followin quadrants, 0 positive.left neck #2mUniversal protocol was followed in compliance with [facility] standards. Mohs Micrographic Surgeon operated in two distinct and integrated capacities as the surgeon and the pathologist. The areas was prepped with chlorhexidine. The tumor was visualized, compared against relevant records, and confirmed with the patient. The agreed upon area anesthetized with lidocaine 1% with epinephrine. Once anesthetized, the area was lightly curetted with a 3mm curette to better define tumor size. A 2mm rim of normal tissue was marked and an incision at a 45 degree angle following standard Mohs approach was performed and the specimen harvested as a microscopic controlled layer. Hemostasis was achieved with electrocautery. Estimated blood loss was 5mL.The specimen was oriented, chromacoded, mapped, and placed in 1 block. Each section was processed in the Mohs Laboratory using Mohs protocol and submitted for frozen section. Please see scanned Mohs map for appropriate use criteria score greater than or equal to 7 and pathology report. Frozen section analysis of the four quadrants showed the followin quadrants, 0 positive.Procedure: Complex repair. The wound was then widely undermined with superficial margin undermined greater than the width of the initial wound. A plication suture was placed in a horizontal fashion to the deep fascia. Wound was then closed in a multilayered fashion with deep buried absorbable sutures. Superficial approximation of tissue was accomplished non-absorbable sutures. The wound was cleaned, Vaseline placed, and a pressure dressing applied to immobilize the wound and aid in hemostasis. Patient was instructed on wound care and directed to f/u for suture removal as below. The patient was instructed to return to clinic sooner for signs of symptoms of infection to include erythema, draining fluid or pain to palpation. There was no noted significant difference from baseline pain score after procedure.Post-operative pain management plan discussed and patient will take acetaminophen 650mg every four hours as needed. The patient left the operating suite alert and fully oriented. Follow-up discussed.Procedure Management:Deep Sutures: 5-0 monocrylSuperficial Sutures: 4- 0 proleneFinal length of incision [8.2 ]cmSuture Removal: [ 7] days Visit for suture removal Well healed inc ision without evidence of infection to include erythema, purulent discharge or tenderness to palpation around site of healing. Patient currently without any specific complaints. After inspection, sutures were removed by non-physician office personnel. Non-physician office personnel reported that the removal went well and the patient left in stable condition. The patient was instructed to return to clinic anytime between 0700 and 1600 Tuesday-Tuesday for any issues relating to the site. If the dermatology clinic is not open, the patient was instructed to report to an emergency department. Next Appt Details 1 Week Reason: Provider Name:Amari Solorzano, 12-10 02:00:00 PM, [address] [place] [address], , [place], [address], Provider Name:Christophe Ho, 2020-12-19 04 :00:00 PM, [address] [place] [address], , [place], [address], Provider Name:Asa Mary, 2021-03-05 3 01:00:00 PM, [address], , [place], [address], Insurance Providers Payer Name Payer Address Payer Phone Insured Name Patient Relati onship to Insured Coverage Start Date [facility]age End Date [facility] [place] [id number] [address] [facility] [id number] [phone] [place] [id number] MEDICARE Part A and B [address] [facility] [address] [place] self 2004
--- OUTSIDE RECORDS SUMMARY | 2021-01-23 22:56 | CCD ---
Author Author [facility] Organization [facility] Address Unknown Phone Unavailable Care Team Providers Care Fence Installer Foreman Name Role Phone Amari Solorzano Unavailable PROBLEMS Type Condition ICD9-CM Code EBP14-WL Code Onset Dates Condition S tatus W/U Status Risk SNOMED Code Notes Problem COPD (chronic obstructive pulmonary disease) J44.9 Active confirmed 97873008 Problem Diabetes type 2, uncontrolled E11.65 Active confirm ed 860127981 Problem Essential hypertension I10 Active confirmed 97414694 Problem Diabetes E11.9 Active confirmed 13476066 Problem Congestive heart failure (CHF) I50.9 Active confir med 17446459 Problem Unspecified open wound, left knee, subsequent encounter S81.002D Active confirmed 10612715129536729 Problem Crohns colitis, unspecified complication K50.119 Active confirmed 07793337 Problem Unspecified open wound of left hand, subsequent encounter S61.402D Active confirmed 65588351262091493 Problem Pulmonary nodule R91.1 Active confirmed 309 085037 Problem 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 Ac tive confirmed 381327535 Problem H/O fall Z91.81 Active confirmed 179346235 Problem Coronary atherosclerosis of [place] coronary artery I25.10 Active confirmed 0498030214829 Problem Pure hypercholesterolemia E78.0 Active confirmed 913269038 Problem COPD exacerbation J44.1 Active confirmed 19 1047824 Problem clock assembler current use of insulin Z79.4 Active conf irmed 805788974 Problem Chronic bronchitis, unspecified chronic bronchitis type J42 Active confirmed 14565892 Problem Chronic kidney disease, stage 3 (moderate) N18.3 Active confirmed 910076386058 Problem Coronary artery disease invo lving [place] heart without angina pectoris, unspecified vessel or lesion type I25.10 Active confirmed 314311479139565 Problem Crohn''s disease of large intestine without complication K50.10 Active confirmed 0060455 Problem Ganglion cyst of finger of right hand M67.441 Ac tive confirmed 133496618 Problem Crohn's disease in remission K50.90 Active confirme d 055044851 Problem Encounter for general adult medical exam ination with abnormal findings Z00.01 Active confirmed 281763651 Problem Encounter for immunization Z23 Active confirmed 189391971 Problem Type 2 diabetes mellitus with diabetic chronic kidney disease E11.22 Active confirmed 01648169 Problem Tear of skin of right wrist, subsequent encounter S61.511D Active confirmed 145293514 Problem 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 9 Active confirmed 90876877 Problem Laceration without foreign body, right l ower leg, subsequent encounter S81.811D Active confirmed 79376999977821207 Problem COLLIN (obstructive sleep apnea) G47.33 Active confirm ed 41492287 Problem Skin tear of right forearm without complication, subsequent encounter S51.811D Active confirmed 403825069 Problem Insomnia, unspecified type G47.00 Active confirmed 345700686 Problem Skin tear of right lower leg without com plication, subsequent encounter S81.811D Active confirmed 812289570 Problem Skin tear of right lower leg without complicatio n, initial encounter S81.811A Active confirmed 613049640 Problem Unspecified open wound of left forearm, subsequent enc ounter S51.802D Active confirmed 02045298758389807 Problem Unspecified open wound of le ft index finger without damage to nail, subsequent encounter S61.201D Active confirmed 03341600 203917372 Problem Unspecified open wound of left elbow, subsequent encounter S51.002D Active confirmed 02993028469427719 Problem Unspecified open wound of right forearm, subsequ ent encounter S51.801D Active confirmed 21168444541033155 Problem Unspecified open wound of left upper arm, subseq uent encounter S41.102D Active confirmed 73794396043385814 Problem Chronic cough R05 Active confirmed 708055 08 Problem Unspecified open wound of right elbow, subsequent enco unter S51.001D Active confirmed 83062246052692367 Problem H/O Meckel's diverticulum Z87.19 Active confirmed 459737655 Problem Unspecified open wound, right knee, subsequent encounter S81.001D Active confirmed 97487758761782557 Problem Gastroesophageal reflux disease, esophagitis pre sence not specified K21.9 Active confirmed 352805795 Problem Unspecified open wound, right lower leg, subsequ ent encounter S81.801D Active confirmed 84637048910655645 Problem Eczema L30.9 Active confirmed 15029997 Problem Benign prostatic hyperplasia with lower urinary tract symptoms N40.1 Active confirmed 0655790918456 Problem Long-term insulin use Z79.4 Active confirmed 427165377 Problem 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.80 Active confirmed 409559643 Problem Basal cell carcinoma of right preauricular region C44.319 Active confirmed 713841535 Problem 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 Active confirmed 405793529 Problem Thoracic aneurysm without mention of rupture I71.2 Active confirmed 163248095 Problem 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 Active confirmed 49505144 Problem Internal derangement of right knee M23.91 Activ e confirmed 208673432457466 Problem Acute prostatitis N41.0 Active confirmed 79 493125 Problem Chronic airway obstruction J44.9 Active confirmed 99969734 Problem 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 Active confirmed 84825205509299082 Problem Atherosclerosis of [place] co ronary artery, angina presence unspecified, unspecified whether [place] or transplanted heart I25.10 A ctive confirmed 9820924341542 Problem Renal cysts, acquired, bilateral N28.1 Active conf irmed 299189302 Problem Other seborrheic dermatitis L21.8 Active confirmed 90544253 Problem Poor urinary stream R39.12 Active confirmed 838365065 Problem Insomnia, unspecified G47.00 Active confirmed 650564127 Problem Renal calculus, bilateral N20.0 Active confirmed 01601904 Problem Basal cell carcinoma of right postauricular region C44.212 Active confirmed 615237496 Problem Contact dermatitis and other eczema, due to unspecified ca use L25.9 Active confirmed 46503989 ALLERGIES Allergen (clinical drug ingredient) Drug/Non Drug Allergy do cumented on EMR Reaction Allergy Type Onset Date Status carbidopa / levodopa Sinemet([facility] Code:[address]-00) reactio n per in hospital Drug Allergy Active alprazolam Xanax([facility] Code:[address]-21) hullcanations Drug Allergy Active cephalexin Keflex([facility] Code:[address]-60) Rash Drug Allergy Active ENCOUNTERS from 1935 to 2020-12-01 Encounter Location Date Provider Diagnosis [facility] Dermatology [facility] [phone] [place] [address] Nov, Amari Miletta Basal cell carcinoma of righ t preauricular region C44.319 and Basal cell carcinoma of right postauricular region C44.212 IMMUNIZATIONS Vaccine Route Administration Date Status Influenza 18 yrs & older Flublok Unknown [...] Flublok IM Intramuscular Jan 11, 2020 Administered Influenza 6mo & up Fluzone IM Intramuscular Feb 02, 2013 Admi nistered Zoster 0.65mL Zostavax SC Subcutaneous Nov 12, [...] Notes Total Score: 1 Interpretation: Alcohol Education Methodist: Question Answer Notes Methodist No evangelical beliefs that would impact health care. Sexual [...] No Information VITAL SIGNS Weight 160 lbs Nov, Weight-kg 72.58 kg Nov, Height 71" in Nov, BMI 22.31 kg/m2 Nov, Blood pressure systolic 128 mm Hg Nov, Blood pressure diastolic 74 mm Hg Nov, MEDICATIONS Medication SIG (Take, Route, Frequency, Duration) Notes Start Da te End Date Status Allopurinol 100 MG 1 tablet orally Daily Active Terazosin HCl 5 MG 1 capsule at bedtime Orally Once a day Jul, Active Flonase Allergy Relief 50 MCG/ACT 1 spray in each nostril Nasall y bid May, Active Breo Ellipta 200.25 1 puff Inhalation Once a day Active Mucinex 600 MG 1 tablet as needed Orally every 12 hrs 30 O 2019 Active amLODIPine Besylate 10 MG 1 tablet Orally Once a day for 90 Active Colace 100 MG 1 cap Orally bid Activ e Incruse Ellipta 62.5 MCG/INH 1 puff Inhalation Once a day Active May Have - Rollator Oct, Active Spironolactone 25 mg 1 tab Orally Once a day for 90 day(s) Active Senna 8.6 MG 1 tab Orally Once a day as needed Active Bacid - 1 cap Orally Daily Active Budesonide 3 MG 1 cap Orally bid Act prosper Centrum Silver Ultra Mens 1 tab orally Daily Active Propranolol HCl 20 MG 1 tablet Orally tid for tremor for 30 days Active Glucometer . as directed subcutaneously twice a day D X: DM uncontrolled E11.65 August, Active Docusate Sodium 100 MG 1 capsule as needed Orally Once a day Active Pantoprazole Sodium 40 MG TAKE ONE TABLET BY MOUTH RAYNE DAY orally Daily for 90 day(s) Active Hannah-Bid Probiotic - 1 tab Orally bid for 90 days Jul, Active Lancets ___ as directed subcutaneously four times daily as needed E11 .65 Active Atorvastatin Calcium 40 MG 1 tablet Orally Once a day Active Fluticasone Furoate 200 MCG/ACT 1 puff Inhalation Once a day Active Januvia 25 mg 2tabs Orally Once a day Active Aspirin 81 81 MG 1 tablet Orally Once a day Active Acetaminophen 500 MG 2 tablets as needed every 8 hrs 09 Ap 2019 Active Lantus solo star pen needles 10 uints E11.65 daily Mar, Active Glucose strip (Verio IQ) as directed ----- as directed Apr, Active PROCEDURES from 1937 to 2020-12-01 Procedure Date Ordered Result Body Site Med: Derm Lidocaine with Epinephrine Inj ection 1% with 2 ml sodium bicarbonate Intradermally to marked areas 2020-11-27 N/A RESULTS No Results REASON FOR VISIT BCC, right preauricular , BCC, right postauricular MEDICAL (GENERAL) HISTORY Type Description Date Medical [...] skin cancer over the past 2 years 0261-[address]Raphael LUCAS procedure right ear 04/04 Surgical History [facility] 09/13/2019 Hospitalization History prostatitis 11/2010 Hospitalization History cardiac stents 01/2011& 02/2011 Hospitalization History resection of Meckel's 02/2012 Hospitalization History Pneumonia/COPD flare 2014 Hospitalization History syncope 08/04-08/12/15 Hospitalization History COPD - [facility] 08/21-08/27/15 Hospitalization History [facility]-axkburpolpt-obzqzfpx cut o n leg 10/27- [facility]ization [facility]SO[facility], exacerbation C OPD 03/03-03/09/2018 Hospitalization History [facility] ? stroke 05/31/2020 -06/05/2020 Hospitalization History [facility] 06/05/2020-06/17/19 21 Goals Section No Information Health Concerns No Information MEDICAL EQUIPMENT No Information MENTAL STATUS No Information FUNCTIONAL STATUS No Information ASSESSMENTS Encounter Date Diagnosis Assessment Notes Treatment Notes Treatm ent Clinical Notes Nov, Basal cell carcinoma of righ t preauricular region (ICD-10 - C44.319) [place] protocol was followed in compliance with [facility] standards. Mohs Micrographic Surgeon operated in two [...] oriented. Follow-up discussed. Procedure Management: Deep Sutures: 6-0 monocryl Superficial Sutures: 6-0 prolene Final length of incision [6.0 ]cm Suture Removal: [ 6 ] days Nov, Basal cell carcinoma of righ t postauricular region (ICD-10 - C44.212) [place] protocol was followed in compliance with [facility] standards. Mohs Micrographic Surgeon operated in two [...] oriented. Follow-up discussed. Procedure Management: Deep Sutures: 6-0 monocryl Superficial Sutures: 6-0 prolene Final length of incision [2.5 ]cm Suture Removal: [ ] days PLAN OF TREATMENT Treatment Notes Assessment Notes Clinical Notes Basal cell carcinoma of right preauricular region [place] protocol was followed in compliance with [facility] standards. Mohs Micrographic Surgeon operated in two [...] sutures. Superficial approximation of tissue was accomplished non- absorbable sutures. The wound was cleaned, Vaseline placed, [...] significant difference from baseline pain score after procedure.Post- operative pain management plan discussed and patient will take acetaminophen 650mg every four hours as needed. The patient left the operating suite alert and fully oriented. Follow-up discussed.Procedure Management:Deep Sutures: 6-0 monocrylSuperficial Sutures: 6-0 proleneFinal length of incision [6.0 ]cmSuture Removal: [ 6 ] days Basal cell carcinoma of right postauricular region [place] protocol was followed in compliance with [facility] standards. Mohs Micrographic Surgeon operated in two [...] sutures. Superficial approximation of tissue was accomplished non- absorbable sutures. The wound was cleaned, Vaseline placed, [...] significant difference from baseline pain score after procedure.Post- operative pain management plan discussed and patient will take acetaminophen 650mg every four hours as needed. The patient left the operating suite alert and fully oriented. Follow-up discussed.Procedure Management:Deep Sutures: 6-0 monocrylSuperficial Sutures: 6-0 proleneFinal length of incision [2.5 ]cmSuture Removal: [ ] days Next Appt Details 1 Week Reason: Provider Name:Amari Solorzano, 12-03 01:00:00 PM, [address] [place] [address], , [place], [address], Provider Name:Christophe Ho, 2020-12-19 04 :00:00 PM, [address], , [place], [address], Provider Name:Asa Mary, 2021-03-05 3 01:00:00 PM, [address], , [place], [address], Insurance Providers Payer Name Payer Address Payer Phone Insured Name Patient Relati onship to Insured Coverage Start Date Coverage End Date BS [place] [address] [place] [address] FRANSISCA HOOVER [id number] MEDICARE Part A and B [address] [place] [phone] FRANSISCA HOOVER 2004
--- OUTSIDE RECORDS SUMMARY | 2021-01-23 22:56 | CCD ---
Author Author [facility] Organization [facility] Address Unknown Phone Unavailable Care Team Providers Care Demolition Engineer Name Role Phone Christophe Ho Unavailable PROBLEMS Type Condition ICD9-CM Code EBC20-TO Code Onset Dates Condition S tatus W/U Status Risk SNOMED Code Notes Problem Pure hypercholesterolemia E78.0 Active confirmed 207892968 Problem COPD (chronic obstructive pulmonary disease) J44.9 Active confirmed 88624106 Problem Coronary atherosclerosis of [place] coronary artery I25.10 Active confirmed 8947104949886 Problem Diabetes type 2, uncontrolled E11.65 Active confirm ed 988152074 Problem Essential hypertension I10 Active confirmed 02253721 Problem Unspecified open wound, right knee, subsequent encounter S81.001D Active confirmed 66331849139040838 Problem Gastroesophageal reflux disease, esophagitis pre sence not specified K21.9 Active confirmed 482723417 Problem Unspecified open wound, right lower leg, subsequ ent encounter S81.801D Active confirmed 83299620150164887 Problem Eczema L30.9 Active confirmed 60817998 Problem Crohns colitis, unspecified complication K50.119 Active confirmed 50044380 Problem Pulmonary nodule R91.1 Active confirmed 309 070683 Problem 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 Ac tive confirmed 616264622 Problem H/O fall Z91.81 Active confirmed 278789781 Problem Type 2 diabetes mellitus with diabetic chronic kidney disease E11.22 Active confirmed 16104321 Problem Encounter for general adult medical exam ination with abnormal findings Z00.01 Active confirmed 428669925 Problem COPD exacerbation J44.1 Active confirmed 19 4050344 Problem meterman current use of insulin Z79.4 Active conf irmed 702502601 Problem Chronic bronchitis, unspecified chronic bronchitis type J42 Active confirmed 63079549 Problem Chronic kidney disease, stage 3 (moderate) N18.3 Active confirmed 177939688285 Problem Diabetes E11.9 Active confirmed 28794651 Problem Congestive heart failure (CHF) I50.9 Active confir med 08592931 Problem Ganglion cyst of finger of right hand M67.441 Ac tive confirmed 504151732 Problem Crohn's disease in remission K50.90 Active confirme d 177554789 Problem Encounter for immunization Z23 Active confirmed 284985928 Problem Skin tear of right lower leg without complicatio n, initial encounter S81.811A Active confirmed 835549602 Problem Tear of skin of right wrist, subsequent encounter S61.511D Active confirmed 416033489 Problem Skin tear of right lower leg without com plication, subsequent encounter S81.811D Active confirmed 338301480 Problem 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 Active confirmed 310770077 Problem Other chronic pain G89.29 Active confirmed 8 3476728 Problem Skin tear of left lower leg without complication , initial encounter S81.812A Active confirmed 307783837 Problem Insomnia G47.00 Active confirmed 987181031 Problem Skin tear of left elbow without complication, in itial encounter S51.012A Active confirmed 052327897 Problem Coronary artery disease invo lving [place] heart without angina pectoris, unspecified vessel or lesion type I25.10 Active confirmed 774895656878206 Problem Crohn''s disease of large intestine without complication K50.10 Active confirmed 9416438 Problem Skin tear of right forearm without complication, subsequent encounter S51.811D Active confirmed 712706797 Problem Insomnia, unspecified type G47.00 Active confirmed 311297268 Problem 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 Active confirmed 68607334541702547 Problem 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 Active confirmed 591394051 Problem Unspecified open wound of left forearm, subsequent enc ounter S51.802D Active confirmed 35456545236221064 Problem Unspecified open wound of le ft index finger without damage to nail, subsequent encounter S61.201D Active confirmed 06080326 405270194 Problem Unspecified open wound of left elbow, subsequent encounter S51.002D Active confirmed 97059961606929981 Problem Contact dermatitis and other eczema, due to unspecified ca use L25.9 Active confirmed 97993570 Problem Unspecified open wound of right forearm, subsequ ent encounter S51.801D Active confirmed 72211129296949846 Problem Other seborrheic dermatitis L21.8 Active confirmed 33917345 Problem Unspecified open wound of left upper arm, subseq uent encounter S41.102D Active confirmed 75433052776814313 Problem Chronic cough R05 Active confirmed 236797 08 Problem Unspecified open wound of right elbow, subsequent enco unter S51.001D Active confirmed 99014979634153824 Problem H/O Meckel's diverticulum Z87.19 Active confirmed 365829997 Problem Unspecified open wound of left hand, subsequent encounter S61.402D Active confirmed 00012877478715459 Problem Unspecified open wound, left knee, subsequent encounter S81.002D Active confirmed 64162876875631377 Problem Benign prostatic hyperplasia with lower urinary tract symptoms N40.1 Active confirmed 3636003900286 Problem Renal calculus, bilateral N20.0 Active confirmed 12495944 Problem Hematoma of left lower leg S80.12XA Active conf irmed 84859409475097508 Problem Depressive disorder, not elsewhere classified F32. 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 Active confirmed 40286149 Problem Laceration without foreign body, right l ower leg, subsequent encounter S81.811D Active confirmed 27022745197613526 Problem COLLIN (obstructive sleep apnea) G47.33 Active confirm ed 46607738 Problem Thoracic aneurysm without mention of rupture I71.2 Active confirmed 778178237 Problem Internal derangement of right knee M23.91 Activ e confirmed 444466842183652 Problem Acute prostatitis N41.0 Active confirmed 79 751332 Problem Long-term insulin use Z79.4 Active confirmed 193148991 Problem Chronic airway obstruction J44.9 Active confirmed 93756702 Problem 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.80 Active confirmed 131661589 Problem Atherosclerosis of [place] co ronary artery, angina presence unspecified, unspecified whether [place] or transplanted heart I25.10 A ctive confirmed 3977411507774 Problem Renal cysts, acquired, bilateral N28.1 Active conf irmed 322581762 Problem Poor urinary stream R39.12 Active confirmed 852649414 Problem Insomnia, unspecified G47.00 Active confirmed 111780412 ALLERGIES Allergen (clinical drug ingredient) Drug/Non Drug Allergy do cumented on EMR Reaction Allergy Type Onset Date Status carbidopa / levodopa Sinemet([facility] Code:[address]-58) reactio n per in hospital Drug Allergy Active alprazolam Xanax([facility] Code:[address]-64) hullcanations Drug Allergy Active cephalexin Keflex([facility] Code:[address]-89) Rash Drug Allergy Active ENCOUNTERS from 1935 to 2020-11-08 Encounter Location Date Provider Diagnosis [facility] [phone] [place] [address] Nov, Christophe Cotterh IMMUNIZATIONS Vaccine Route Administration [...] Notes Total Score: 1 Interpretation: Alcohol Education Anabaptist: Question Answer Notes Anabaptist No anabaptism beliefs that would impact health care. Sexual [...] hrs 30 O 2019 Active Propranolol HCl 10 MG 1 tablet Orally tid for tremor Active Glucose strip (Verio IQ) as directed [...] D X: DM uncontrolled E11.65 August, Active Mack-Bid Probiotic - 1 tab Orally bid for [...] needles 10 uints E11.65 daily Mar, Active August Have - Rollator Oct, Active Fluticasone Furoate [...] RESULTS No Results REASON FOR VISIT refill mack bid MEDICAL (GENERAL) HISTORY Type Description Date Medical [...] History doing skin cancers MOH'S proce nhung@ [facility] [address] Jung multiple removal s of skin cancer over the past 2 years 9725-[address]Raphael LUCAS procedure right ear 04/04 Surgical History [facility] [place] 09/13/2019 Hospitalization History prostatitis 11/2010 Hospitalization History cardiac stents 01/2011& 02/2011 Hospitalization History resection of Meckel's 02/2012 Hospitalization History Pneumonia/COPD flare 2014 Hospitalization History syncope 08/04-08/12/15 Hospitalization History COPD - [facility] 08/21-08/27/15 [facility] History [facility] cut o [facility] leg 10/27- [facility]SO[facility], exacerbation C OPD 03/03-03/09/2018 Hospitalization History [facility] ? stroke 05/31/2020 -06/05/2020 Hospitalization History [facility] 06/05/2020-06/17/19 21 Goals Section No Information Health Concerns No Information MEDICAL EQUIPMENT No Information MENTAL STATUS No Information FUNCTIONAL STATUS No Information ASSESSMENTS No Information PLAN OF TREATMENT Medication Medication Name Sig Start Date Stop Date Mack-Bid Probiotic - 1 tab Orally bid for 90 days Jul, May Have - Rollator Oct, Pantoprazole Sodium 40 MG TAKE ONE TABLET BY MOUTH RAYNE RY DAY orally Daily for 90 day(s) Next Appt Details Provider Name:Amari Solorzano, 11-27 01:00:00 PM, [address] [place] [address], , [place], [address], Provider Name:Amari Solorzano, 12-03 01:00:00 PM, [address] [place] [address], , [place], [address], Provider Name:Christophe Ho, 2020-12-19 04 :00:00 PM, [address] , , [place], [address], Provider Name:Asa Mary, 2021-03-05 3 01:00:00 PM, [address], , [place], [address], Insurance Providers Payer Name Payer Address Payer Phone Insured Name Patient Relati onship to Insured Coverage Start Date Coverage End Date BS [place] [address] [address] [place] [address] FRANSISCA HOOVER [id number] MEDICARE Part A and B [address] [facility] [phone] FRANSISCA HOOVER self 2004
--- OUTSIDE RECORDS SUMMARY | 2021-01-23 22:58 | CCD ---
Author Author [facility] Organization [facility] Address Unknown Phone Unavailable Care Team Providers Care Fuel Dock Attendant Name Role Phone Nicolasa NELSON MD Unavailable Unavailable Nicolasa NELSON MD Unavailable Unavailable Nicolasa NELSON MD Unavailable Unavailable Nicolasa NELSON MD Unavailable Unavailable Nicolasa NELSON MD Unavailable Unavailable Nicolasa NELSON MD Unavailable Unavailable Nicolasa NELSON MD Unavailable Unavailable XANDER [id number], E DONNA [id number] Unavailable Unavailab le XANDER [id number], E DONNA [id number] Unavailable Unavailab le XANDER [id number], E DONNA [id number] Unavailable Unavailab ALAN David Unavailable Unavailable SYMENOW, G CHRISTOPHER PA Unavailable Unavailable SYMENOW, G CHRISTOPHER PA Unavailable Unavailable SYMENOW, G CHRISTOPHER PA Unavailable Unavailable SYMENOW, G CHRISTOPHER PA Unavailable Unavailable SYMENOW, G CHRISTOPHER PA Unavailable Unavailable SYMENOW, G CHRISTOPHER PA Unavailable Unavailable SYMENOW, G CHRISTOPHER PA Unavailable Unavailable SYMENOW, G CHRISTOPHER PA Unavailable Unavailable SYMENOW, G CHRISTOPHER PA Unavailable Unavailable SYMENOW, G CHRISTOPHER PA Unavailable Unavailable SYMENOW, G CHRISTOPHER PA Unavailable Unavailable SYMENOW, G CHRISTOPHER PA Unavailable Unavailable SYMENOW, G CHRISTOPHER PA Unavailable Unavailable SYMENOW, G CHRISTOPHER PA Unavailable Unavailable SYMENOW, G CHRISTOPHER PA Unavailable Unavailable SYMENOW, G CHRISTOPHER PA Unavailable Unavailable ANSELMO WASHINGTON MD Unavailable Unavailable ANSELMO WASHINGTON MD Unavailable Unavailable ANSELMO WASHINGTON MD Unavailable Unavailable ANSELMO WASHINGTON MD Unavailable Unavailable ANSELMO WASHINGTON MD Unavailable Unavailable SYMENOW, G CHRISTOPHER PA Unavailable Unavailable SYMENOW, G CHRISTOPHER PA Unavailable Unavailable SYMENOW, G CHRISTOPHER PA Unavailable Unavailable SYMENOW, G CHRISTOPHER PA Unavailable Unavailable SYMENOW, G CHRISTOPHER PA Unavailable Unavailable SYMENOW, G CHRISTOPHER PA Unavailable Unavailable SYMENOW, G CHRISTOPHER PA Unavailable Unavailable SYMENOW, G CHRISTOPHER PA Unavailable Unavailable SYMENOW, G CHRISTOPHER PA Unavailable Unavailable SYMENOW, G CHRISTOPHER PA Unavailable Unavailable SYMENOW, G CHRISTOPHER PA Unavailable Unavailable SYMENOW, G CHRISTOPHER PA Unavailable Unavailable SYMENOW, G CHRISTOPHER PA Unavailable Unavailable SYMENOW, G CHRISTOPHER PA Unavailable Unavailable SYMENOW, G CHRISTOPHER PA Unavailable Unavailable SYMENOW, G CHRISTOPHER PA Unavailable Unavailable ELOY, MASOUD JEAN PA Unavailable Unavailable ELOY, MASOUD JEAN PA Unavailable Unavailable ELOY, MASOUD JEAN PA Unavailable Unavailable ELOY, MASOUD JEAN PA Unavailable Unavailable ELOY, MASOUD JEAN PA Unavailable Unavailable ELOY, MASOUD JEAN PA Unavailable Unavailable ELOY, MASOUD JEAN PA Unavailable Unavailable ELOY, MASOUD JEAN PA Unavailable Unavailable ELOY, MASOUD JEAN PA Unavailable Unavailable ELOY, MASOUD JEAN PA Unavailable Unavailable ELOY, MASOUD JEAN PA Unavailable Unavailable ELOY, MASOUD JEAN PA Unavailable Unavailable ELOY, MASOUD JEAN PA Unavailable Unavailable ELOY, MASOUD JEAN PA Unavailable Unavailable ELOY, MASOUD JEAN PA Unavailable Unavailable ELOY, MASOUD JEAN PA Unavailable Unavailable ELOY, MASOUD JEAN PA Unavailable Unavailable ELOY, MASOUD JEAN PA Unavailable Unavailable ELOY, MASOUD JEAN PA Unavailable Unavailable ELOY, MASOUD JEAN PA Unavailable Unavailable ELOY, MASOUD JEAN PA Unavailable Unavailable ELOY, MASOUD JEAN PA Unavailable Unavailable NIKA MCCLELLAND MD Unavailable Unavailable NIKA MCCLELLAND MD Unavailable Unavailable STAS, NIKA PLATT Unavailable Unavailable STAS, NIKA PLATT Unavailable Unavailable STAS, NIKA PLATT Unavailable Unavailable STAS, NIKA PLATT Unavailable Unavailable STAS, NIKA PLATT Unavailable Unavailable STAS, NIKA PLATT Unavailable Unavailable STAS, NIKA PLATT Unavailable Unavailable STAS, NIKA PLATT Unavailable Unavailable STAS, NIKA PLATT Unavailable Unavailable STAS, NIKA PLATT Unavailable Unavailable STAS, NIKA PLATT Unavailable Unavailable STAS, NIKA PLATT Unavailable Unavailable STAS, NIKA PLATT Unavailable Unavailable STAS, NIKA PLATT Unavailable Unavailable STAS, NIKA PLATT Unavailable Unavailable STAS, NIKA PLATT Unavailable Unavailable STAS, NIKA PLATT Unavailable Unavailable STAS, NIKA PLATT Unavailable Unavailable STAS, NIKA PLATT Unavailable Unavailable STAS, NIKA PLATT Unavailable Unavailable STAS, NIKA PLATT Unavailable Unavailable STAS, NIKA PLATT Unavailable Unavailable STAS, NIKA PLATT Unavailable Unavailable STAS, NIKA PLATT Unavailable Unavailable STAS, NIKA PLATT Unavailable Unavailable STAS, NIKA PLATT Unavailable Unavailable STAS, NIKA PLATT Unavailable Unavailable STAS, NIKA PLATT Unavailable Unavailable STAS, NIKA PLATT Unavailable Unavailable STAS, NIKA PLATT Unavailable Unavailable STAS, NIKA PLATT Unavailable Unavailable STAS, NIKA PLATT Unavailable Unavailable STAS, NIKA PLATT Unavailable Unavailable STAS, NIKA PLATT Unavailable Unavailable STAS, NIKA PLATT Unavailable Unavailable STAS, NIKA PLATT Unavailable Unavailable STAS, NIKA PLATT Unavailable Unavailable STAS, NIKA PLATT Unavailable Unavailable STAS, NIKA PLATT Unavailable Unavailable STAS, NIKA PLATT Unavailable Unavailable STAS, NIKA PLATT Unavailable Unavailable STAS, NIKA PLATT Unavailable Unavailable STAS, NIKA PLATT Unavailable Unavailable STAS, NIKA PLATT Unavailable Unavailable STAS, NIKA PLATT Unavailable Unavailable STAS, NIKA PLATT Unavailable Unavailable STAS, NIKA PLATT Unavailable Unavailable STAS, NIKA PLATT Unavailable Unavailable STAS, NIKA PLATT Unavailable Unavailable STAS, NIKA PLTAT Unavailable Unavailable STAS, NIKA PLATT Unavailable Unavailable STAS, NIKA PLATT Unavailable Unavailable STAS, NIKA PLATT Unavailable Unavailable Alonzo Ho MD Unavailable Unavailable Alonzo Ho MD Unavailable Unavailable Alonzo Ho MD Unavailable Unavailable Alonzo Ho MD Unavailable Unavailable Alonzo Ho MD Unavailable Unavailable Alonzo Ho MD Unavailable Unavailable Alonzo Ho MD Unavailable Unavailable Alonzo Ho MD Unavailable Unavailable Alonzo Ho MD Unavailable Unavailable Alonzo Ho MD Unavailable Unavailable Alonzo Ho MD Unavailable Unavailable Alonzo Ho MD Unavailable Unavailable Alonzo Ho MD Unavailable Unavailable Alonzo Ho MD Unavailable Unavailable Alonzo Ho MD Unavailable Unavailable Alonzo Ho MD Unavailable Unavailable Alonzo Ho MD Unavailable Unavailable Alonzo Ho MD Unavailable Unavailable Alonzo Ho MD Unavailable Unavailable Alonzo Ho MD Unavailable Unavailable Alonzo Ho MD Unavailable Unavailable Alonzo Ho MD Unavailable Unavailable Alonzo Ho MD Unavailable Unavailable Alonzo Ho MD Unavailable Unavailable Alonzo Ho MD Unavailable Unavailable Alonzo Ho MD Unavailable Unavailable Alonzo Ho MD Unavailable Unavailable Alonzo Ho MD Unavailable Unavailable Alonzo Ho MD Unavailable Unavailable Alonzo Ho MD Unavailable Unavailable Alonzo Ho MD Unavailable Unavailable Alonzo Ho MD Unavailable Unavailable Alonzo Ho MD Unavailable Unavailable Alonzo Ho MD Unavailable Unavailable Alonzo Ho MD Unavailable Unavailable Alonzo Ho MD Unavailable Unavailable Alonzo Ho MD Unavailable Unavailable Alonzo Ho MD Unavailable Unavailable Alonzo Ho MD Unavailable Unavailable Alonzo Ho MD Unavailable Unavailable Alonzo Ho MD Unavailable Unavailable Alonzo Ho MD Unavailable Unavailable Alonzo Ho MD Unavailable Unavailable Alonzo Ho MD Unavailable Unavailable Alonzo Ho MD Unavailable Unavailable Alonzo Ho MD Unavailable Unavailable Alonzo Ho MD Unavailable Unavailable Alonzo Ho MD Unavailable Unavailable Alonzo Ho MD Unavailable Unavailable Alonzo Ho MD Unavailable Unavailable Alonzo Ho MD Unavailable Unavailable Alonzo Ho MD Unavailable Unavailable Alozno Ho MD Unavailable Unavailable Alonzo Ho MD Unavailable Unavailable Alonzo Ho MD Unavailable Unavailable Alonzo Ho MD Unavailable Unavailable Alonzo Ho MD Unavailable Unavailable Alonzo Ho MD Unavailable Unavailable Alonzo Ho MD Unavailable Unavailable Alonzo Ho MD Unavailable Unavailable Alonzo Ho MD Unavailable Unavailable Alonzo Ho MD Unavailable Unavailable Alonzo Ho MD Unavailable Unavailable Alonzo Ho MD Unavailable Unavailable Alonzo Ho MD Unavailable Unavailable Alonzo Ho MD Unavailable Unavailable Alonzo Ho MD Unavailable Unavailable Alonzo Ho MD Unavailable Unavailable Alonzo Ho MD Unavailable Unavailable Alonzo Ho MD Unavailable Unavailable Alonzo Ho MD Unavailable Unavailable Alonzo Ho MD Unavailable Unavailable Alonzo Ho MD Unavailable Unavailable Alonzo Ho MD Unavailable Unavailable Marleny LAGOS Unavailable [phone] Marleny LAGOS Unavailable [phone] Marleny LAGOS Unavailable [phone] YOLIS JeromyAdan RICARDA Unavailable [phone] YOLIS Marleny RICARDA Unavailable [phone] LASHONDATIFFANIE MD Unavailable Unavailable LASHONDA, TIFFANIE MD Unavailable Unavailable LASHONDA, TIFFANIE MD Unavailable Unavailable LASHONDA, TIFFANIE MD Unavailable Unavailable LASHONDA, TIFFANIE MD Unavailable Unavailable LASHONDA, TIFFANIE MD Unavailable Unavailable LASHONDA, TIFFANIE MD Unavailable Unavailable LASHONDA, TIFFANIE MD Unavailable Unavailable LASHONDA, TIFFANIE MD Unavailable Unavailable LASHONDA, TIFFANIE MD Unavailable Unavailable LASHONDA, TIFFANIE MD Unavailable Unavailable LASHONDA, TIFFANIE MD Unavailable Unavailable LASHONDA, TIFFANIE MD Unavailable Unavailable LASHONDA, TIFFANIE MD Unavailable Unavailable LASHONDA, TIFFANIE MD Unavailable Unavailable LASHONDA, TIFFANIE MD Unavailable Unavailable LASHONDA, TIFFANIE MD Unavailable Unavailable LASHONDA, TIFFANIE MD Unavailable Unavailable LASHONDA, TIFFANIE MD Unavailable Unavailable LASHONDA, TIFFANIE MD Unavailable Unavailable LASHONDA, TIFFANIE MD Unavailable Unavailable LASHONDA, TIFFANIE MD Unavailable Unavailable LASHONDA, TIFFANIE MD Unavailable Unavailable LASHONDA, TIFFANIE MD Unavailable Unavailable LASHONDA, TIFFANIE MD Unavailable Unavailable LASHONDA, TIFFANIE MD Unavailable Unavailable LASHONDA, TIFFANIE MD Unavailable Unavailable LASHONDA, TIFFANIE MD Unavailable Unavailable LASHONDA, TIFFANIE MD Unavailable Unavailable LASHONDA, TIFFANIE MD Unavailable Unavailable LASHONDA, TIFFANIE MD Unavailable Unavailable LASHONDA, TIFFANIE MD Unavailable Unavailable LASHONDA, TIFFANIE MD Unavailable Unavailable LASHONDA, TIFFANIE MD Unavailable Unavailable LASHONDA, TIFFANIE MD Unavailable Unavailable LASHONDA, TIFFANIE MD Unavailable Unavailable LASHONDA, TIFFANIE MD Unavailable Unavailable LASHONDA, TIFFANIE MD Unavailable Unavailable LASHONDA, TIFFANIE MD Unavailable Unavailable LASHONDA, TIFFANIE MD Unavailable Unavailable LASHONDA, TIFFANIE MD Unavailable Unavailable LASHONDA, TIFFANIE MD Unavailable Unavailable LASHONDA, TIFFANIE MD Unavailable Unavailable JOLLY, B PRASANTH TRAIN DRIVER Unavailable Unavailable JOLLY, B PRASANTH TRAIN DRIVER Unavailable Unavailable JOLLY, B PRASANTH TRAIN DRIVER Unavailable Unavailable JOLLY, B PRASANTH TRAIN DRIVER Unavailable Unavailable JOLLY, B PRASANTH TRAIN DRIVER Unavailable Unavailable JOLLY, B PRASANTH TRAIN DRIVER Unavailable Unavailable JOLLY, B PRASANTH TRAIN DRIVER Unavailable Unavailable JOLLY, B PRASANTH TRAIN DRIVER Unavailable Unavailable JOLLY, B PRASANTH TRAIN DRIVER Unavailable Unavailable JOLLY, B PRASANTH TRAIN DRIVER Unavailable Unavailable JOLLY, B PRASANTH TRAIN DRIVER Unavailable Unavailable JOLLY, B PRASANTH TRAIN DRIVER Unavailable Unavailable JOLLY, B PRASANTH TRAIN DRIVER Unavailable Unavailable JOLLY, B PRASANTH TRAIN DRIVER Unavailable Unavailable JOLLY, B PRASANTH TRAIN DRIVER Unavailable Unavailable JOLLY, B PRASANTH TRAIN DRIVER Unavailable Unavailable JOLLY, B PRASANTH TRAIN DRIVER Unavailable Unavailable JOLLY, B PRASANTH TRAIN DRIVER Unavailable Unavailable JOLLY, B PRASANTH TRAIN DRIVER Unavailable Unavailable JOLLY, B PRASANTH TRAIN DRIVER Unavailable Unavailable JOLLY, B PRASANTH TRAIN DRIVER Unavailable Unavailable JOLLY, B PRASANTH TRAIN DRIVER Unavailable Unavailable JOLLY, B PRASANTH TRAIN DRIVER Unavailable Unavailable JOLLY, B PRASANTH TRAIN DRIVER Unavailable Unavailable JOLLY, B PRASANTH TRAIN DRIVER Unavailable Unavailable JOLLY, B PRASANTH TRAIN DRIVER Unavailable Unavailable JOLLY, B PRASANTH TRAIN DRIVER Unavailable Unavailable JOLLY, B PRASANTH TRAIN DRIVER Unavailable Unavailable JOLLY, B PRASANTH TRAIN DRIVER Unavailable Unavailable JOLLY, B PRASANTH TRAIN DRIVER Unavailable Unavailable JOLLY, B PRASANTH TRAIN DRIVER Unavailable Unavailable JOLLY, B PRASANTH TRAIN DRIVER Unavailable Unavailable JOLLY, B PRASANTH TRAIN DRIVER Unavailable Unavailable JOLLY, B PRASANTH TRAIN DRIVER Unavailable Unavailable JOLLY, B PRASANTH TRAIN DRIVER Unavailable Unavailable JOLLY, B PRASANTH TRAIN DRIVER Unavailable Unavailable JOLLY, B PRASANTH TRAIN DRIVER Unavailable Unavailable JOLLY, B PRASANTH TRAIN DRIVER Unavailable Unavailable JOLLY, B PRASANTH TRAIN DRIVER Unavailable Unavailable JOLLY, B PRASANTH TRAIN DRIVER Unavailable Unavailable JOLLY, B PRASANTH TRAIN DRIVER Unavailable Unavailable JOLLY, B PRASANTH TRAIN DRIVER Unavailable Unavailable JOLLY, B PRASANTH TRAIN DRIVER Unavailable Unavailable JOLLY, B PRASANTH TRAIN DRIVER Unavailable Unavailable JOLLY, B PRASANTH TRAIN DRIVER Unavailable Unavailable JOLLY, B PRASANTH TRAIN DRIVER Unavailable Unavailable JOLLY, B PRASANTH TRAIN DRIVER Unavailable Unavailable JOLLY, B PRASANTH TRAIN DRIVER Unavailable Unavailable JOLLY, B PRASANTH TRAIN DRIVER Unavailable Unavailable JOLLY, B PRASANTH TRAIN DRIVER Unavailable Unavailable JOLLY, B PRASANTH TRAIN DRIVER Unavailable Unavailable JOLLY, B PRASANTH TRAIN DRIVER Unavailable Unavailable JOLLY, B PRASANTH TRAIN DRIVER Unavailable Unavailable JOLLY, B PRASANTH TRAIN DRIVER Unavailable Unavailable JOLLY, B PRASANTH TRAIN DRIVER Unavailable Unavailable JOLLY, B PRASANTH TRAIN DRIVER Unavailable Unavailable JOLLY, B PRASANTH TRAIN DRIVER Unavailable Unavailable JOLLY, B PRASANTH TRAIN DRIVER Unavailable Unavailable JOLLY, B PRASANTH TRAIN DRIVER Unavailable Unavailable JOLLY, B PRASANTH TRAIN DRIVER Unavailable Unavailable JOLLY, B PRASANTH TRAIN DRIVER Unavailable Unavailable JOLLY, B PRASANTH TRAIN DRIVER Unavailable Unavailable Mona, A Rachel M60A2 ARMOR CREWMAN Unavailable Unavailable Mona, A Rachel M60A2 ARMOR CREWMAN Unavailable Unavailable Mona, A Rachel M60A2 ARMOR CREWMAN Unavailable Unavailable Mona, A Rachel M60A2 ARMOR CREWMAN Unavailable Unavailable Mona, A Rachel M60A2 ARMOR CREWMAN Unavailable Unavailable Mona, A Rachel M60A2 ARMOR CREWMAN Unavailable Unavailable Mona, A Rachel M60A2 ARMOR CREWMAN Unavailable Unavailable Mona, A Rachel M60A2 ARMOR CREWMAN Unavailable Unavailable Mona, A Rachel M60A2 ARMOR CREWMAN Unavailable Unavailable Mona, A Rachel M60A2 ARMOR CREWMAN Unavailable Unavailable Mona, A Rachel M60A2 ARMOR CREWMAN Unavailable Unavailable Mona, A Rachel M60A2 ARMOR CREWMAN Unavailable Unavailable Mona, A Rachel M60A2 ARMOR CREWMAN Unavailable Unavailable Mona, A Rachel M60A2 ARMOR CREWMAN Unavailable Unavailable Mona, A Rachel M60A2 ARMOR CREWMAN Unavailable Unavailable Mona, A Rachel M60A2 ARMOR CREWMAN Unavailable Unavailable Mona, A Rachel M60A2 ARMOR CREWMAN Unavailable Unavailable Mona, A Rachel M60A2 ARMOR CREWMAN Unavailable Unavailable Mona, A Rachel M60A2 ARMOR CREWMAN Unavailable Unavailable Mona, A Rachel M60A2 ARMOR CREWMAN Unavailable Unavailable Mona, A Rachel M60A2 ARMOR CREWMAN Unavailable Unavailable Mona, A Rachel M60A2 ARMOR CREWMAN Unavailable Unavailable Mona, A Rachel M60A2 ARMOR CREWMAN Unavailable Unavailable Mona, A Rachel M60A2 ARMOR CREWMAN Unavailable Unavailable Mona, A Rachel M60A2 ARMOR CREWMAN Unavailable Unavailable Mona, A Rachel M60A2 ARMOR CREWMAN Unavailable Unavailable Mona, A Rachel M60A2 ARMOR CREWMAN Unavailable Unavailable Mona, A Rachel M60A2 ARMOR CREWMAN Unavailable Unavailable Mona, A Rachel M60A2 ARMOR CREWMAN Unavailable Unavailable Mona, A Rachel M60A2 ARMOR CREWMAN Unavailable Unavailable Mona, A Rachel M60A2 ARMOR CREWMAN Unavailable Unavailable Mona, A Rachel M60A2 ARMOR CREWMAN Unavailable Unavailable Mona, A Rachel M60A2 ARMOR CREWMAN Unavailable Unavailable Mona, A Rachel M60A2 ARMOR CREWMAN Unavailable Unavailable Mona, A Rachel M60A2 ARMOR CREWMAN Unavailable Unavailable Mona, A Rachel M60A2 ARMOR CREWMAN Unavailable Unavailable Mona, A Rachel M60A2 ARMOR CREWMAN Unavailable Unavailable Mona, A Rachel M60A2 ARMOR CREWMAN Unavailable Unavailable Mona, A Rachel M60A2 ARMOR CREWMAN Unavailable Unavailable Mona, A Rachel M60A2 ARMOR CREWMAN Unavailable Unavailable Mona, A Rachel M60A2 ARMOR CREWMAN Unavailable Unavailable Mona, A Rachel M60A2 ARMOR CREWMAN Unavailable Unavailable Mona, A Rachel M60A2 ARMOR CREWMAN Unavailable Unavailable Mona, A Rachel M60A2 ARMOR CREWMAN Unavailable Unavailable Mona, A Rachel M60A2 ARMOR CREWMAN Unavailable Unavailable Mona, A Rachel M60A2 ARMOR CREWMAN Unavailable Unavailable Mona, A Rachel M60A2 ARMOR CREWMAN Unavailable Unavailable Mona, A Rachel M60A2 ARMOR CREWMAN Unavailable Unavailable Mona, A Rachel M60A2 ARMOR CREWMAN Unavailable Unavailable Mona, A Rachel M60A2 ARMOR CREWMAN Unavailable Unavailable Mona, A Rachel M60A2 ARMOR CREWMAN Unavailable Unavailable Mona, A Rachel M60A2 ARMOR CREWMAN Unavailable Unavailable Fish, Radha Rivers MD Unavailable Unavailable Fish, Radha Rivers MD Unavailable Unavailable Fish, Radha Rivers MD Unavailable Unavailable Fish, Radha Rivers MD Unavailable Unavailable Fish, Radha Rivers MD Unavailable Unavailable Fish, Radha Rivers MD Unavailable Unavailable Fish, Radha Rivers MD Unavailable Unavailable Fish, Radha Rivers MD Unavailable Unavailable Fish, Radha Rivers MD Unavailable Unavailable Fish, Radha Rivers MD Unavailable Unavailable Fish, Radha Rivers MD Unavailable Unavailable Fish, Radha Rivers MD Unavailable Unavailable Fish, Radha Rivers MD Unavailable Unavailable Fish, Radha Rivers MD Unavailable Unavailable Fish, Radha Rivers MD Unavailable Unavailable Fish, Radha Rivers MD Unavailable Unavailable Fish, Radha Rivers MD Unavailable Unavailable Fish, Radha Rivers MD Unavailable Unavailable Fish, Radha Rivers MD Unavailable Unavailable Fish, Radha Rivers MD Unavailable Unavailable Fish, Radha Rivers MD Unavailable Unavailable Fish, Radha Rivers MD Unavailable Unavailable Fish, Radha Rivers MD Unavailable Unavailable Fish, Radha Rivers MD Unavailable Unavailable Fish, Radha Rivers MD Unavailable Unavailable Fish, Radha Rivers MD Unavailable Unavailable Fish, Radha Rivers MD Unavailable Unavailable Fish, Radha Rivers MD Unavailable Unavailable Fish, Radha Rivers MD Unavailable Unavailable Fish, Radha Rivers MD Unavailable Unavailable Fish, Radha Rivers MD Unavailable Unavailable Fish, Radha Rivers MD Unavailable Unavailable Fish, Radha Rivers MD Unavailable Unavailable Fish, Radha Rivers MD Unavailable Unavailable Fish, Radha Rivers MD Unavailable Unavailable Fish, Radha Rivers MD Unavailable Unavailable Fish, Radha Rivers MD Unavailable Unavailable Fish, Radha Rivers MD Unavailable Unavailable Fish, Radha Rivers MD Unavailable Unavailable Fish, Radha Rivers MD Unavailable Unavailable Fish, Radha Rivers MD Unavailable Unavailable Fish, Radha Rivers MD Unavailable Unavailable Fish, Radha Rivers MD Unavailable Unavailable Fish, Radha Rivers MD Unavailable Unavailable Fish, Radha Rivers MD Unavailable Unavailable Fish, Radha Rivers MD Unavailable Unavailable Fish, Radha Rivers MD Unavailable Unavailable Fish, Radha Rivers MD Unavailable Unavailable Fish, Radha Rivers MD Unavailable Unavailable Fish, Radha Rivers MD Unavailable Unavailable Fish, Radha Rivers MD Unavailable Unavailable Fish, Radha Rivers MD Unavailable Unavailable Fish, Radha Rivers MD Unavailable Unavailable Fish, Radha Rivers MD Unavailable Unavailable Fish, Radha Rivers MD Unavailable Unavailable Fish, Radha Rivers MD Unavailable Unavailable Fish, Radha Rivers MD Unavailable Unavailable Fish, Radha Rivers MD Unavailable Unavailable Fish, Radha Rivers MD Unavailable Unavailable Fish, Radha Rivers MD Unavailable Unavailable Fish, Radha Rivers MD Unavailable Unavailable Fish, Radha Rivers MD Unavailable Unavailable Fish, Radha Rivers MD Unavailable Unavailable Fish, Radha Rivers MD Unavailable Unavailable Fish, Radha Rivers MD Unavailable Unavailable Godinez, L Concepcion RPA Unavailable Unavailable Godinez, L Concepcion RPA Unavailable Unavailable Godinez, L Concepcion RPA Unavailable Unavailable Godinez, L Concepcion RPA Unavailable Unavailable Godinez, L Concepcion RPA Unavailable Unavailable Godinez, L Concepcion RPA Unavailable Unavailable Godinez, L Concepcion RPA Unavailable Unavailable Godinez, L Concepcion RPA Unavailable Unavailable Godinez, L Concepcion RPA Unavailable Unavailable Godinez, L Concepcion RPA Unavailable Unavailable Godinez, L Concepcion RPA Unavailable Unavailable Godinez, L Concepcion RPA Unavailable Unavailable Godinez, L Concepcion RPA Unavailable Unavailable Godinez, L Concepcion RPA Unavailable Unavailable Godinez, L Concepcion RPA Unavailable Unavailable Godinez, L Concepcion RPA Unavailable Unavailable Godinez, L Concepcion RPA Unavailable Unavailable Godinez, L Concepcion RPA Unavailable Unavailable Godinez, L Concepcion RPA Unavailable Unavailable Godinez, L Concepcion RPA Unavailable Unavailable Godinez, L Concepcion RPA Unavailable Unavailable Godinez, L Concepcion RPA Unavailable Unavailable Godinez, L Concepcion RPA Unavailable Unavailable Godinez, L Concepcion RPA Unavailable Unavailable Godinez, L Concepcion RPA Unavailable Unavailable Godinez, L Concepcion RPA Unavailable Unavailable Godinez, L Concepcion RPA Unavailable Unavailable Godinez, L Concepcion RPA Unavailable Unavailable Godinez, L Concepcion RPA Unavailable Unavailable Godinez, L Concepcion RPA Unavailable Unavailable Godinez, L Concepcion RPA Unavailable Unavailable Godinez, L Concepcion RPA Unavailable Unavailable Kenneth Evans MD Unavailable Unavailable Kenneth Evans MD Unavailable Unavailable Kenneth Evans MD Unavailable Unavailable Kenneth Evans MD Unavailable Unavailable Kenneth Evans MD Unavailable Unavailable Kenneth Evans MD Unavailable Unavailable Kenneth Evans MD Unavailable Unavailable Kenneth Evans MD Unavailable Unavailable Kenneth Evans MD Unavailable Unavailable Kenneth Evans MD Unavailable Unavailable Kenneth Evans MD Unavailable Unavailable Kenneth Evans MD Unavailable Unavailable Kenneth Evans MD Unavailable Unavailable Kenneth Evans MD Unavailable Unavailable Kenneth Evans MD Unavailable Unavailable Kenneth Evans MD Unavailable Unavailable Kenneth Evans MD Unavailable Unavailable Kenneth Evans MD Unavailable Unavailable Kenneth Evans MD Unavailable Unavailable Kenneth Evans MD Unavailable Unavailable Kenneth Evans MD Unavailable Unavailable Kenneth Evans MD Unavailable Unavailable Kenneth Evans MD Unavailable Unavailable Kenneth Evans MD Unavailable Unavailable Kenneth Evans MD Unavailable Unavailable Kenneth Evans MD Unavailable Unavailable Kenneth Evans MD Unavailable Unavailable Kenneth Evans MD Unavailable Unavailable Kenneth Evans MD Unavailable Unavailable Kenneth Evans MD Unavailable Unavailable Kenneth Evans MD Unavailable Unavailable Kenneth Evans MD Unavailable Unavailable Kenneth Evans MD Unavailable Unavailable Kenneth Evans MD Unavailable Unavailable Kenneth Evans MD Unavailable Unavailable Kenneth Evans MD Unavailable Unavailable Kenneth Evans MD Unavailable Unavailable Kenneth Evans MD Unavailable Unavailable Kenneth Evans MD Unavailable Unavailable Kenneth Evans MD Unavailable Unavailable Kenneth Evans MD Unavailable Unavailable Kenneth Evans MD Unavailable Unavailable Kenneth Evans MD Unavailable Unavailable Kenneth Evans MD Unavailable Unavailable Kenneth Evans MD Unavailable Unavailable Kenneth Evans MD Unavailable Unavailable Kenneth Evans MD Unavailable Unavailable Kenneth Evans MD Unavailable Unavailable Kenneth Evans MD Unavailable Unavailable Kenneth Evans MD Unavailable Unavailable Kenneth Evans MD Unavailable Unavailable Kenneth Evans MD Unavailable Unavailable Kenneth Evans MD Unavailable Unavailable Kenneth Evans MD Unavailable Unavailable Hegard, Genny M60A2 ARMOR CREWMAN Unavailable Unavailable Hegard, Genny M60A2 ARMOR CREWMAN Unavailable Unavailable Hegard, Genny M60A2 ARMOR CREWMAN Unavailable Unavailable Hegard, Genny M60A2 ARMOR CREWMAN Unavailable Unavailable Hegard, Genny M60A2 ARMOR CREWMAN Unavailable Unavailable Hegard, Genny M60A2 ARMOR CREWMAN Unavailable Unavailable Hegard, Genny M60A2 ARMOR CREWMAN Unavailable Unavailable Hegard, Genny M60A2 ARMOR CREWMAN Unavailable Unavailable Hegard, Genny M60A2 ARMOR CREWMAN Unavailable Unavailable Hegard, Genny M60A2 ARMOR CREWMAN Unavailable Unavailable Hegard, Genny M60A2 ARMOR CREWMAN Unavailable Unavailable Hegard, Genny M60A2 ARMOR CREWMAN Unavailable Unavailable Hegard, Genny M60A2 ARMOR CREWMAN Unavailable Unavailable Hegard, Genny M60A2 ARMOR CREWMAN Unavailable Unavailable Hegard, Genny M60A2 ARMOR CREWMAN Unavailable Unavailable Hegard, Genny M60A2 ARMOR CREWMAN Unavailable Unavailable Hegard, Genny M60A2 ARMOR CREWMAN Unavailable Unavailable Re-disclosure Warning The records that you are about to access may contain information from federally-assisted alcohol or drug abuse programs. If such information is present, then the following federally mandated warning applies: This information has been disclosed to you from records protected by federal confidentiality rules (42 CFR part 2). The federal rules prohibit you from making any further disclosure of this information unless further disclosure is expressly permitted by the written consent of the person to whom it pertains or as otherwise permitted by 42 CFR part 2. A general authorization for the release of medical or other information is NOT sufficient for this purpose. The Federal rules restrict any use of the information to criminally investigate or prosecute any alcohol or drug abuse patient.The records that you are about to access may contain highly sensitive health information, the redisclosure of which is protected by Article 27-F of the [facility] Public Health law. If you continue you may have access to information: Regarding HIV / AIDS; Provided by facilities licensed or operated by the [facility] Office of Mental Health; or Provided by the [facility] Office for People With Developmental Disabilities. If such information is present, then the following [facility] mandated warning applies: This information has been disclosed to you from confidential records which are protected by state law. State law prohibits you from making any further disclosure of this information without the specific written consent of the person to whom it pertains, or as otherwise permitted by law. Any unauthorized further disclosure in violation of state law may result in a fine or chcf sentence or both. A general authorization for the release of medical or other information is NOT sufficient authorization for further disc losure. Allergies and Adverse Reactions Type Description Substance Reaction Status Data Source(s ) Propensity to adverse reactions CARBIDOPA-LEVODOPA Carbidopa-Levodopa Active [facility] Propensity to adverse reactions NO KNOWN ALLERGIES NO KNOWN ALLERGIES [facility] Propensity to adverse reactions CEPHALEXIN CEPHALEXIN [facility] Propensity to adverse reactions ALPRAZOLAM ALPRAZOLAM [facility] Family History Family Member Name Family Member Gender Family Member Status Date o f Status Description Data Source(s) Unknown Male Problem MEDENT ([facility]) Unknown Unknown Problem MEDENT ([facility]) Unknown Unknown Problem MEDENT ([facility] ) Encounters Encounter Providers Location Date Indications Data Source(s ) Outpatient Attender: TIFFANIE GALLEGO MD Main [facility] 01/15/2021 02:00:00 PM EDT MEDENT ([facility]) Outpatient Attender: Samir Hagan/Meeun/Pola/R eindl 12/31/2020 01:30:00 PM EDT MED[facility] ([facility] Outpatient Attender: PRASANTH AZEVEDO TRAIN DRIVER Physical Therapy 01:15:00 PM EDT MED[facility] ([facility]) [place] [address] [address] 12/19/2020 12:00:00 AM EDT eCW1 ([facility]) [place] [address] [address] 12/10/2020 12:00:00 AM EDT eCW1 ([facility]) (MMS 2) [facility] 2 [address] [facility] [place] [address] 12/03/2020 12:00:00 AM EDT eCW1 ([facility]) (MMS 3) [facility] 3 [address] [facility] [place] [address] 11/27/2020 12:00:00 AM EDT eCW1 ([facility]) [place] [address] [address] 11/21/2020 12:00:00 AM EDT eCW1 ([facility]) [place] [address] [address] 11/07/2020 12:00:00 AM EDT eCW1 ([facility]) Outpatient Attender: ESTELLE Hagan/Meenu/Pola/Reinolivia 11/06/2020 11:00:00 AM EDT MEDENT ([facility] Outpatient Attender: NIKA MCCLELLAND MD 11/04/2020 02:31:00 PM [facility] Outpatient Attender: NIKA MCCLELLAND MD [email or web address] 07:46:07 AM EDT - 11/04/2020 03:08:35 PM EDT [facility] [place] [address] [address] 10/15/2020 12:00:00 AM EDT [facility] [place] [address] [address] 10/14/2020 12:00:00 AM EDT [facility]CW1 ([facility]) [place] [address] [address] 10/14/2020 12:00:00 AM EDT eCW1 ([facility]) [place] [address] [address] 10/13/2020 12:00:00 AM EDT eCW1 ([facility]) [place] [address] [address] 09/23/2020 12:00:00 AM EDT eCW1 ([facility]) [place] [address] [address] 09/19/2020 12:00:00 AM EDT eCW1 ([facility]) Outpatient Attender: Genny Ovalle [facility] Main Office 0 09/09/2020 12:45:00 PM EDT [facility] ([facility] [place] [address] [address] 09/05/2020 12:00:00 AM EDT eCW1 ([facility]) Outpatient Attender: TIFFANIE GALLEGO MD Main office - [facility] 09/02/2020 03:45:00 PM EDT MED[facility] ([facility]) [place] [address] [address] 08/27/2020 12:00:00 AM EDT eCW1 ([facility]) Outpatient Attender: Tita Land MD Physical Therapy 08/25 01:30:00 PM EDT MEDENT ([facility]) [place] [address] [address] 08/14/2020 12:00:00 AM EDT eCW1 ([facility]) Unknown [address] [facility] [place] [address] 08/06/2020 12:00:00 AM EDT eCW1 ([facility]) [place] [address] [facility] [place] [address] 07/23/2020 12:00:00 AM EDT [facility]CW1 [facility] Outpatient Attender: NIKA MCCLELLAND MD [email or web address] 07/18/2020 01:08:03 PM EDT [facility] Unknown [address] [place] [address] 07/15/2020 12:00:00 AM EDT eCW1 [facility] Unknown [address] [facility] [place] [address] 07/08/2020 12:00:00 AM EDT eCW1 ([facility]) [place] [address] [address] 07/08/2020 12:00:00 AM EDT [facility]CW1 [facility]) [place] [address] [place] [address] 07/02/2020 12:00:00 AM EDT eCW1 [facility]) Outpatient Attender: TIFFANIE GALLEGO MD Main office [facility] 07/01/2020 03:45:00 PM EDT MEDENT ([facility]) Unknown [address] [facility] [place] [address] 06/27/2020 12:00:00 AM EDT eCW1 [facility]) Outpatient Attender: Samir Hagan/Meenu/Pola/David mckeon 06/24/2020 02:30:00 PM EDT MEDENT ([facility] Outpatient [address] [facility] [place] [address] 06/23/2020 12:00:00 AM EDT [facility]CW1 [facility] [place] [address] [place] [address] 06/19/2020 12:00:00 AM EDT [facility]CW1 [facility]) [place] [address] [place] [address] 06/09/2020 12:00:00 AM EST eCW1 ([facility]) [place] [address] [place] [address] 06/04/2020 12:00:00 AM EST eCW1 ([facility]) [facility]: DONNA TERRELL [id number]: DONNA TERRELL [id number]: SHANNON TOLLIVER [id number] 05/31/2020 12:00:00 AM EST - 06/05/2020 12:10:00 PM EST Transient cerebral ischemic attack, unspecified [facility] Transient cerebral ischemic attack, unsp ecified Patient discharged. Emergency Attender: SHANNON CARDONA PAReferrer : Christophe Ho MD EMERGENCY ROOM-ER 05/30/2020 10:40:00 PM EST - 05/30/2020 11:58:00 PM [facility] Patient discharged. [place] [address] [address] 05/26/2020 12:00:00 AM EST eCW1 ([facility]) [place] [address] [place] [address] 05/22/2020 12:00:00 AM EST eCW1 ([facility]) [place] [address] [place] [address] 05/16/2020 12:00:00 AM EST eCW1 ([facility]) [place] [address] [place] [address] 05/16/2020 12:00:00 AM EST eCW1 ([facility]) Outpatient Attender: PRASANTH AZEVEDO TRAIN DRIVER Physical Therapy 12:15:00 PM EST MEDENT ([facility]) Outpatient Attender: TIFFANIE GALLEGO MD Main office [facility] 03/31/2020 02:00:00 PM EST MEDENT ([facility]) ([id number]) For Template [facility] [place] [address] 03/14/2020 12:00:00 AM EST eCW1 ([facility]) Unknown [address] [facility] [address] 03/11/2020 12:00:00 AM EST eCW1 ([facility]) ([id number]) For Template Sun [address] [place] [address] 03/06/2020 12:00:00 AM EST eCW1 ([facility]) Outpatient PHUONG-JUSTIN 03/04/2020 02:16 :50 PM EST - 03/04/2020 03:56:29 PM EST [facility] Unknown [address] [place] [address] 02/22/2020 12:00:00 AM EST eCW1 ([facility]) ([id number]) For Template Sun [address] [place] [address] 02/21/2020 12:00:00 AM EST eCW1 ([facility]) Outpatient Attender: NIKA MCCLELLAND MD 02/19/2020 10:37:00 AM [facility] Outpatient Attender: NIKA JACKSON-RENETTA 02/19/2020 08:00:31 AM EST [facility] ([id number]) For Template [facility] [place] [address] 02/14/2020 12:00:00 AM EST eCW1 ([facility]) Outpatient [facility] [address] 02/01/2020 12:00:00 AM EDT eCW1 ([facility]) Unknown [facility] [address] 02/01/2020 12:00:00 AM EDT eCW1 ([facility]) ([id number]) For Template Sun [address] [place] [address] 01/31/2020 12:00:00 AM EDT eCW1 ([facility]) Outpatient Attender: TIFFANIE GALLEGO MD [facility] 01/28/2020 02:00:00 PM EDT MEDENT ([facility] ) ([id number]) For Template [facility] [place] [address] 01/17/2020 12:00:00 AM EDT eCW1 ([facility]) Outpatient [address] [place] [address] 01/11/2020 12:00:00 AM EDT eCW1 ([facility]) Outpatient [address] [place] [address] 01/10/2020 12:00:00 AM EDT eCW1 ([facility]) ([id number]) For Template Sun [address] [place] [address] 01/03/2020 12:00:00 AM EDT eCW1 ([facility]) Outpatient Attender: Concepcion Godinez RPA [place]/Pola/R eindl 01/01/2020 11:30:00 AM EDT MEDENT ([facility] ) Outpatient Attender: Christophe Ho MDReferrer: Christophe Ho MD 12/18/2019 01:00:00 PM [facility] Outpatient Attender: NIKA MCCLELLAND MD 12/04/2019 08:54:00 AM [facility] Outpatient Attender: NIKA MCCLELLAND MD [email or web address] 12/04/2019 07:22:20 AM EDT [facility] Outpatient Attender: Concepcion Godinez RPA [place]/Pola/R eindl 11/29/2019 11:45:00 AM EDT MEDENT ([facility] ) Outpatient Attender: NIKA MCCLELLAND MD 10/09/2019 10:32:00 AM [facility] Emergency Attender: ELINOR KEITAReferrer: Christophe Ho MD 09/29/2019 12:35:00 AM EDT - 09/29/2019 12:40:00 AM [facility] Patient discharged. Outpatient Attender: Rachel Dunn FNPReferrer: Christophe angelo MD 04/02/2019 03:55:00 PM EST - 04/02/2019 03:55:00 PM [facility] Inpatient Attender: JEAN LYONS PAAdmitter: David LAGOS EMERGENCY ROOM-2N 10/27/2017 04:32:00 PM EDT - 2017 11:45:00 AM [facility] Immunizations Vaccine Date Status Description Data Source(s) COVID-19 VACCINE Moderna 06/20/2020 12:00:00 AM EDT completed [employer] Vaccine Series Complete: YESThis Data wa s Submitted to [facility] Via [employer]. COVID-19 dose #1 given elsewhere Unspecified 05/15/2020 02:3 1:00 PM EST completed eCW1 ([facility]) COVID-19 dose #1 given elsewhere Unspecified 05/15/2020 02:3 1:00 PM EST completed eCW1 ([facility]) COVID-19 dose #1 given elsewhere Unspecified 05/15/2020 02:3 1:00 PM EST completed eCW1 ([facility]) COVID-19 dose #1 given elsewhere Unspecified 05/15/2020 02:3 1:00 PM EST completed eCW1 ([facility]) COVID-19 dose #1 given elsewhere Unspecified 05/15/2020 02:3 1:00 PM EST completed eCW1 ([facility]) COVID-19 dose #1 given elsewhere Unspecified 05/15/2020 02:3 1:00 PM EST completed eCW1 ([facility]) COVID-19 dose #1 given elsewhere Unspecified 05/15/2020 02:3 1:00 PM EST completed eCW1 ([facility]) COVID-19 dose #1 given elsewhere Unspecified 05/15/2020 02:3 1:00 PM EST completed eCW1 ([facility]) COVID-19 dose #1 given elsewhere Unspecified 05/15/2020 02:3 1:00 PM EST completed eCW1 ([facility]) COVID-19 dose #1 given elsewhere Unspecified 05/15/2020 02:3 1:00 PM EST completed eCW1 ([facility]) COVID-19 dose #1 given elsewhere Unspecified 05/15/2020 02:3 1:00 PM EST completed eCW1 ([facility]) COVID-19 dose #1 given elsewhere Unspecified 05/15/2020 02:3 1:00 PM EST completed eCW1 ([facility]) COVID-19 dose #1 given elsewhere Unspecified 05/15/2020 02:3 1:00 PM EST completed eCW1 ([facility]) COVID-19 dose #1 given elsewhere Unspecified 05/15/2020 02:3 1:00 PM EST completed eCW1 ([facility]) COVID-19 dose #1 given elsewhere Unspecified 05/15/2020 02:3 1:00 PM EST completed eCW1 ([facility]) COVID-19 dose #1 given elsewhere Unspecified 05/15/2020 02:3 1:00 PM EST completed eCW1 ([facility]) COVID-19 dose #1 given elsewhere Unspecified 05/15/2020 02:3 1:00 PM EST completed eCW1 ([facility]) COVID-19 dose #1 given elsewhere Unspecified 05/15/2020 02:3 1:00 PM EST completed eCW1 ([facility]) COVID-19 dose #1 given elsewhere Unspecified 05/15/2020 02:3 1:00 PM EST completed eCW1 ([facility]) COVID-19 dose #1 given elsewhere Unspecified 05/15/2020 02:3 1:00 PM EST completed eCW1 ([facility]) COVID-19 dose #1 given elsewhere Unspecified 05/15/2020 02:3 1:00 PM EST completed eCW1 ([facility]) COVID-19 dose #1 given elsewhere Unspecified 05/15/2020 02:3 1:00 PM EST completed eCW1 ([facility]) COVID-19 dose #1 given elsewhere Unspecified 05/15/2020 02:3 1:00 PM EST completed eCW1 ([facility]) COVID-19 dose #1 given elsewhere Unspecified 05/15/2020 02:3 1:00 PM EST completed eCW1 ([facility]) COVID-19 dose #1 (given elsewhere) Unspecified 05/15/2020 02 :31:00 PM EST completed eCW1 ([facility]) COVID-19 dose #1 given elsewhere Unspecified 05/15/2020 02:3 1:00 PM EST completed eCW1 ([facility]) COVID-19 dose #1 given elsewhere Unspecified 05/15/2020 02:3 1:00 PM EST completed eCW1 ([facility]) COVID-19 dose #1 given elsewhere Unspecified 05/15/2020 02:3 1:00 PM EST completed eCW1 ([facility]) COVID-19 dose #1 given elsewhere Unspecified 05/15/2020 02:3 1:00 PM EST completed eCW1 ([facility]) COVID-19 dose #1 given elsewhere Unspecified 05/15/2020 02:3 1:00 PM EST completed eCW1 ([facility]) COVID-19 VACCINE Moderna 05/15/2020 12:00:00 AM EST completed [employer] Vaccine Series Complete: NOThis Data was Submitted to [facility] Via [employer]. influenza, recombinant, quadrIvalent,injectable, prese rvative free 01/11/2020 12:18:00 PM EDT completed eCW1 ([facility]) influenza, recombinant, quadrIvalent,injectable, prese rvative free 01/11/2020 12:18:00 PM EDT completed eCW1 ([facility]) influenza, recombinant, quadrIvalent,injectable, prese rvative free 01/11/2020 12:18:00 PM EDT completed eCW1 ([facility]) influenza, recombinant, quadrIvalent,injectable, prese rvative free 01/11/2020 12:18:00 PM EDT completed eCW1 ([facility]) influenza, recombinant, quadrIvalent,injectable, prese rvative free 01/11/2020 12:18:00 PM EDT completed eCW1 ([facility]) influenza, recombinant, quadrIvalent,injectable, prese rvative free 01/11/2020 12:18:00 PM EDT completed eCW1 ([facility]) influenza, recombinant, quadrIvalent,injectable, prese rvative free 01/11/2020 12:18:00 PM EDT completed eCW1 ([facility]) influenza, recombinant, quadrIvalent,injectable, prese rvative free 01/11/2020 12:18:00 PM EDT completed eCW1 ([facility]) influenza, recombinant, quadrIvalent,injectable, prese rvative free 01/11/2020 12:18:00 PM EDT completed eCW1 ([facility]) influenza, recombinant, quadrIvalent,injectable, prese rvative free 01/11/2020 12:18:00 PM EDT completed eCW1 ([facility]) influenza, recombinant, quadrIvalent,injectable, prese rvative free 01/11/2020 12:18:00 PM EDT completed eCW1 ([facility]) influenza, recombinant, quadrIvalent,injectable, prese rvative free 01/11/2020 12:18:00 PM EDT completed eCW1 ([facility]) influenza, recombinant, quadrIvalent,injectable, prese rvative free 01/11/2020 12:18:00 PM EDT completed eCW1 ([facility]) influenza, recombinant, quadrIvalent,injectable, prese rvative free 01/11/2020 12:18:00 PM EDT completed eCW1 ([facility]) influenza, recombinant, quadrIvalent,injectable, prese rvative free 01/11/2020 12:18:00 PM EDT completed eCW1 ([facility]) influenza, recombinant, quadrIvalent,injectable, prese rvative free 01/11/2020 12:18:00 PM EDT completed eCW1 ([facility]) influenza, recombinant, quadrIvalent,injectable, prese rvative free 01/11/2020 12:18:00 PM EDT completed eCW1 ([facility]) influenza, recombinant, quadrIvalent,injectable, prese rvative free 01/11/2020 12:18:00 PM EDT completed eCW1 ([facility]) influenza, recombinant, quadrIvalent,injectable, prese rvative free 01/11/2020 12:18:00 PM EDT completed eCW1 ([facility]) influenza, recombinant, quadrIvalent,injectable, prese rvative free 01/11/2020 12:18:00 PM EDT completed eCW1 ([facility]) influenza, recombinant, quadrIvalent,injectable, prese rvative free 01/11/2020 12:18:00 PM EDT completed eCW1 ([facility]) influenza, recombinant, quadrIvalent,injectable, prese rvative free 01/11/2020 12:18:00 PM EDT completed eCW1 ([facility]) influenza, recombinant, quadrIvalent,injectable, prese rvative free 01/11/2020 12:18:00 PM EDT completed eCW1 ([facility]) influenza, recombinant, quadrIvalent,injectable, prese rvative free 01/11/2020 12:18:00 PM EDT completed eCW1 ([facility]) influenza, recombinant, quadrIvalent,injectable, prese rvative free 01/11/2020 12:18:00 PM EDT completed eCW1 ([facility]) influenza, recombinant, quadrIvalent,injectable, prese rvative free 01/11/2020 12:18:00 PM EDT completed eCW1 ([facility]) influenza, recombinant, quadrIvalent,injectable, prese rvative free 01/11/2020 12:18:00 PM EDT completed eCW1 ([facility]) influenza, recombinant, quadrIvalent,injectable, prese rvative free 01/11/2020 12:18:00 PM EDT completed eCW1 ([facility]) influenza, recombinant, quadrIvalent,injectable, prese rvative free 01/11/2020 12:18:00 PM EDT completed eCW1 ([facility]) influenza, recombinant, quadrIvalent,injectable, prese rvative free 01/11/2020 12:18:00 PM EDT completed eCW1 ([facility]) influenza, recombinant, quadrIvalent,injectable, prese rvative free 01/11/2020 12:18:00 PM EDT completed eCW1 ([facility]) influenza, recombinant, quadrIvalent,injectable, prese rvative free 01/11/2020 12:18:00 PM EDT completed eCW1 ([facility]) influenza, recombinant, quadrIvalent,injectable, prese rvative free 01/11/2020 12:18:00 PM EDT completed eCW1 ([facility]) influenza, recombinant, quadrIvalent,injectable, prese rvative free 01/11/2020 12:18:00 PM EDT completed eCW1 ([facility]) influenza, recombinant, quadrIvalent,injectable, prese rvative free 01/11/2020 12:18:00 PM EDT completed eCW1 ([facility]) influenza, recombinant, quadrIvalent,injectable, prese rvative free 01/11/2020 12:18:00 PM EDT completed eCW1 ([facility]) influenza, recombinant, quadrIvalent,injectable, prese rvative free 01/11/2020 12:18:00 PM EDT completed eCW1 ([facility]) influenza, recombinant, quadrIvalent,injectable, prese rvative free 01/11/2020 12:18:00 PM EDT completed eCW1 ([facility]) influenza, recombinant, quadrIvalent,injectable, prese rvative free 01/11/2020 12:18:00 PM EDT completed eCW1 ([facility]) influenza, recombinant, quadrIvalent,injectable, prese rvative free 01/11/2020 12:18:00 PM EDT completed eCW1 ([facility]) influenza, recombinant, quadrIvalent,injectable, prese rvative free 01/11/2020 12:18:00 PM EDT completed eCW1 ([facility]) influenza, recombinant, quadrIvalent,injectable, prese rvative free 01/11/2020 12:18:00 PM EDT completed eCW1 ([facility]) influenza, recombinant, quadrIvalent,injectable, prese rvative free 01/11/2020 12:18:00 PM EDT completed eCW1 ([facility]) IIV3. This is one of two codes replacing CVX 15, which is being retired. 01/10/2020 01:26:00 PM EDT completed eCW1 ([facility]) IIV3. This is one of two codes replacing CVX 15, which is being retired. 01/10/2020 01:26:00 PM EDT completed eCW1 ([facility]) IIV3. This is one of two codes replacing CVX 15, which is being retired. 01/10/2020 01:26:00 PM EDT completed eCW1 ([facility]) IIV3. This is one of two codes replacing CVX 15, which is being retired. 01/10/2020 01:26:00 PM EDT completed eCW1 ([facility]) IIV3. This is one of two codes replacing CVX 15, which is being retired. 01/10/2020 01:26:00 PM EDT completed eCW1 ([facility]) IIV3. This is one of two codes replacing CVX 15, which is being retired. 01/10/2020 01:26:00 PM EDT completed eCW1 ([facility]) IIV3. This is one of two codes replacing CVX 15, which is being retired. 01/10/2020 01:26:00 PM EDT completed eCW1 ([facility]) IIV3. This is one of two codes replacing CVX 15, which is being retired. 01/10/2020 01:26:00 PM EDT completed eCW1 ([facility]) IIV3. This is one of two codes replacing CVX 15, which is being retired. 01/10/2020 01:26:00 PM EDT completed eCW1 ([facility]) IIV3. This is one of two codes replacing CVX 15, which is being retired. 01/10/2020 01:26:00 PM EDT completed eCW1 ([facility]) IIV3. This is one of two codes replacing CVX 15, which is being retired. 01/10/2020 01:26:00 PM EDT completed eCW1 ([facility]) IIV3. This is one of two codes replacing CVX 15, which is being retired. 01/10/2020 01:26:00 PM EDT completed eCW1 ([facility]) IIV3. This is one of two codes replacing CVX 15, which is being retired. 01/10/2020 01:26:00 PM EDT completed eCW1 ([facility]) IIV3. This is one of two codes replacing CVX 15, which is being retired. 01/10/2020 01:26:00 PM EDT completed eCW1 ([facility]) IIV3. This is one of two codes replacing CVX 15, which is being retired. 01/10/2020 01:26:00 PM EDT completed eCW1 ([facility]) IIV3. This is one of two codes replacing CVX 15, which is being retired. 01/10/2020 01:26:00 PM EDT completed eCW1 ([facility]) IIV3. This is one of two codes replacing CVX 15, which is being retired. 01/10/2020 01:26:00 PM EDT completed eCW1 ([facility]) IIV3. This is one of two codes replacing CVX 15, which is being retired. 01/10/2020 01:26:00 PM EDT completed eCW1 ([facility]) IIV3. This is one of two codes replacing CVX 15, which is being retired. 01/10/2020 01:26:00 PM EDT completed eCW1 ([facility]) IIV3. This is one of two codes replacing CVX 15, which is being retired. 01/10/2020 01:26:00 PM EDT completed eCW1 ([facility]) IIV3. This is one of two codes replacing CVX 15, which is being retired. 01/10/2020 01:26:00 PM EDT completed eCW1 ([facility]) IIV3. This is one of two codes replacing CVX 15, which is being retired. 01/10/2020 01:26:00 PM EDT completed eCW1 ([facility]) IIV3. This is one of two codes replacing CVX 15, which is being retired. 01/10/2020 01:26:00 PM EDT completed eCW1 ([facility]) IIV3. This is one of two codes replacing CVX 15, which is being retired. 01/10/2020 01:26:00 PM EDT completed eCW1 ([facility]) IIV3. This is one of two codes replacing CVX 15, which is being retired. 01/10/2020 01:26:00 PM EDT completed eCW1 ([facility]) IIV3. This is one of two codes replacing CVX 15, which is being retired. 01/10/2020 01:26:00 PM EDT completed eCW1 ([facility]) IIV3. This is one of two codes replacing CVX 15, which is being retired. 01/10/2020 01:26:00 PM EDT completed eCW1 ([facility]) IIV3. This is one of two codes replacing CVX 15, which is being retired. 01/10/2020 01:26:00 PM EDT completed eCW1 ([facility]) IIV3. This is one of two codes replacing CVX 15, which is being retired. 01/10/2020 01:26:00 PM EDT completed eCW1 ([facility]) IIV3. This is one of two codes replacing CVX 15, which is being retired. 01/10/2020 01:26:00 PM EDT completed eCW1 ([facility]) IIV3. This is one of two codes replacing CVX 15, which is being retired. 01/10/2020 01:26:00 PM EDT completed eCW1 ([facility]) IIV3. This is one of two codes replacing CVX 15, which is being retired. 01/10/2020 01:26:00 PM EDT completed eCW1 ([facility]) IIV3. This is one of two codes replacing CVX 15, which is being retired. 01/10/2020 01:26:00 PM EDT completed eCW1 ([facility]) IIV3. This is one of two codes replacing CVX 15, which is being retired. 01/10/2020 01:26:00 PM EDT completed eCW1 ([facility]) IIV3. This is one of two codes replacing CVX 15, which is being retired. 01/10/2020 01:26:00 PM EDT completed eCW1 ([facility]) IIV3. This is one of two codes replacing CVX 15, which is being retired. 01/10/2020 01:26:00 PM EDT completed eCW1 ([facility]) IIV3. This is one of two codes replacing CVX 15, which is being retired. 01/10/2020 01:26:00 PM EDT completed eCW1 ([facility]) IIV3. This is one of two codes replacing CVX 15, which is being retired. 01/10/2020 01:26:00 PM EDT completed eCW1 ([facility]) IIV3. This is one of two codes replacing CVX 15, which is being retired. 01/10/2020 01:26:00 PM EDT completed eCW1 ([facility]) IIV3. This is one of two codes replacing CVX 15, which is being retired. 01/10/2020 01:26:00 PM EDT completed eCW1 ([facility]) IIV3. This is one of two codes replacing CVX 15, which is being retired. 01/10/2020 01:26:00 PM EDT completed eCW1 ([facility]) IIV3. This is one of two codes replacing CVX 15, which is being retired. 01/10/2020 01:26:00 PM EDT completed eCW1 ([facility]) IIV3. This is one of two codes replacing CVX 15, which is being retired. 01/10/2020 01:26:00 PM EDT completed eCW1 ([facility]) IIV3. This is one of two codes replacing CVX 15, which is being retired. 01/10/2020 01:26:00 PM EDT completed eCW1 ([facility]) Medications Medication Brand Name Start Date Product Form Dose Route Admi nistrative Instructions Pharmacy Instructions Status Indications Reaction Description Data Source(s) 100,000 unit/mL 12/19/2020 12:00:00 AM EDT suspension 280 TAKE 5ML BY MOUTH FOUR TIMES A DAY FOR 14 DAYS TAKE 5ML BY MOUTH FOUR TIMES A DAY FOR 14 DAYS SOLD: 12/20/2020 [facility] 100,000 unit/mL 12/19/2020 12:00:00 AM EDT suspension 280 TAKE 5ML BY MOUTH FOUR TIMES A DAY FOR 14 DAYS TAKE 5ML BY MOUTH FOUR TIMES A DAY FOR 14 DAYS SOLD: 01/13/2021 [facility] Nystatin 929085 UNT/ML Oral Suspension Nystatin 338894 UNIT/ML Nystatin 313642 UNIT/ML 12/19/2020 12:00:00 AM EDT 5.0 {ml} active Nystatin 262823 UNIT/ML eCW1 ([facility]) Clindamycin 300 MG Oral Capsule Clindamycin HCl 300 MG Clind amycin HCl 300 MG 12/03/2020 12:00:00 AM EDT active Clindamycin HCl 300 MG eCW1 ([facility]) Clindamycin 300 MG Oral Capsule Clindamycin HCl 300 MG Clind amycin HCl 300 MG 12/03/2020 12:00:00 AM EDT active Clindamycin HCl 300 MG eCW1 ([facility]) Clindamycin 300 MG Oral Capsule Clindamycin HCl 300 MG Clind amycin HCl 300 MG 12/03/2020 12:00:00 AM EDT suspended Clindamycin HCl 300 MG eCW1 ([facility]) Clindamycin 300 MG Oral Capsule CLINDAMYCIN HCL 12/03/2020 12:00 :00 AM EDT capsule 20 TAKE ONE CAPSULE BY MOUTH TWICE A DAY FOR 10 DAYS TAKE ONE CAPSULE BY MOUTH TWICE A DAY FOR 10 DAYS SOLD: 12/03/2020 [facility] 20 mg 11/25/2020 12:00:00 AM EDT tablet 90 TAKE ONE TABLET BY MOUTH THREE TIMES A DAY FOR TREMOR TAKE ONE TABLET BY MOUTH THREE TIMES A DAY FOR TREMOR SOLD: 11/28/2020 [facility] 20 mg 11/25/2020 12:00:00 AM EDT tablet 90 TAKE ONE TABLET BY MOUTH THREE TIMES A DAY FOR TREMOR TAKE ONE TABLET BY MOUTH THREE TIMES A DAY FOR TREMOR SOLD: 12/20/2020 [facility] 1 billion cell- 250 mg 11/10/2020 12:00:00 AM EDT tablet 180 TAKE ONE TABLET BY MOUTH TWICE A DAY TAKE ONE TABLET BY MOUTH TWICE A DAY SOLD: 11/11/2020 [facility] May Have - UNK 10/15/2020 12:00:00 AM EDT active May Have - eCW1 ([facility]) May Have - UNK 10/15/2020 12:00:00 AM EDT active May Have - eCW1 ([facility]) pantoprazole 40 MG Delayed Release Oral Tablet PANTOPRAZOLE SODIUM 10/15/2020 12:00:00 AM EDT tablet,delayed release (DR/EC) 90 T JUSTYNA ONE TABLET BY MOUTH EVERY DAY TAKE ONE TABLET BY MOUTH EVERY DAY SOLD: 10/16/2020 [facility] pantoprazole 40 MG Delayed Release Oral Tablet PANTOPRAZOLE SODIUM 10/15/2020 12:00:00 AM EDT tablet,delayed release (DR/EC) 90 T JUSTYNA ONE TABLET BY MOUTH EVERY DAY TAKE ONE TABLET BY MOUTH EVERY DAY SOLD: 01/13/2021 [facility] May Have - UNK 10/15/2020 12:00:00 AM EDT active May Have - eCW1 ([facility]) May Have - UNK 10/15/2020 12:00:00 AM EDT active May Have - eCW1 ([facility]) May Have - UNK 10/15/2020 12:00:00 AM EDT active May Have - eCW1 ([facility]) May Have - UNK 10/15/2020 12:00:00 AM EDT active May Have - eCW1 ([facility]) May Have - UNK 10/15/2020 12:00:00 AM EDT active May Have - eCW1 ([facility]) May Have - UNK 10/15/2020 12:00:00 AM EDT active May Have - eCW1 ([facility]) May Have - UNK 10/15/2020 12:00:00 AM EDT active May Have - eCW1 ([facility]) 10 mg 09/10/2020 12:00:00 AM EDT tablet 90 TAKE ONE TABLET BY MOUTH EVERY DAY TAKE ONE TABLET BY MOUTH EVERY DAY SOLD: 09/11/2020 [facility] Ketoconazole 20 MG/ML Medicated Shampoo KETOCONAZOLE 09/11/19 21 12:00:00 AM EDT shampoo 120 SHAMPOO DAILY UNTIL SCALP IS CLEAR, THEN 2-3 TIMES A WEEK FOR MAINTENANCE SHAMPOO DAILY UNTIL SCALP IS CLEAR, THEN 2-3 TIMES A WEEK FOR MAINTENANCE SOLD: 01/13/2021 [facility] Ketoconazole 20 MG/ML Medicated Shampoo KETOCONAZOLE 09/11/19 21 12:00:00 AM EDT shampoo 120 SHAMPOO DAILY UNTIL SCALP IS CLEAR, THEN 2-3 TIMES A WEEK FOR MAINTENANCE SHAMPOO DAILY UNTIL SCALP IS CLEAR, THEN 2-3 TIMES A WEEK FOR MAINTENANCE SOLD: 09/11/2020 [facility] 10 mg 09/10/2020 12:00:00 AM EDT tablet 90 TAKE ONE TABLET BY MOUTH EVERY DAY TAKE ONE TABLET BY MOUTH EVERY DAY SOLD: 12/20/2020 [facility] Ketoconazole 20 MG/ML Medicated [place] Ketoconazole 09/10/19 12:00:00 AM EDT active MEDENT ( [facility]) 25 mg 09/07/2020 12:00:00 AM EDT tablet 90 TAKE ONE TABLET BY MOUTH EVERY DAY TAKE ONE TABLET BY MOUTH EVERY DAY SOLD: 12/01/2020 [facility] 25 mg 09/07/2020 12:00:00 AM EDT tablet 90 TAKE ONE TABLET BY MOUTH EVERY DAY TAKE ONE TABLET BY MOUTH EVERY DAY SOLD: 09/09/2020 [facility] atorvastatin 40 MG Oral Tablet ATORVASTATIN CALCIUM 08/15/2020 1 2:00:00 AM EDT tablet 90 TAKE ONE TABLET BY MOUTH ONCE DA AYSE TAKE ONE TABLET BY MOUTH ONCE DAILY SOLD: 11/18/2020 [facility] atorvastatin 40 MG Oral Tablet ATORVASTATIN CALCIUM 08/15/2020 1 2:00:00 AM EDT tablet 90 TAKE ONE TABLET BY MOUTH ONCE DA AYSE TAKE ONE TABLET BY MOUTH ONCE DAILY SOLD: 08/18/2020 [facility] 15 mg 08/07/2020 12:00:00 AM EDT tablet 30 TAKE ONE TABLET BY MOUTH AT BEDTIME TAKE ONE TABLET BY MOUTH AT BEDTIME SOLD: 08/07/2020 [facility] Mirtazapine 15 MG Oral Tablet Mirtazapine 15 MG 08/06/2020 12:00:00 AM EDT 1.0 {tablet_at_bedtime} active Mirtazapine 15 MG eCW1 ([facility]) Mirtazapine 15 MG Oral Tablet Mirtazapine 15 MG 08/06/2020 12:00:00 AM EDT 1.0 {tablet_at_bedtime} active Mirtazapine 15 MG eCW1 ([facility]) Mirtazapine 15 MG Oral Tablet Mirtazapine 15 MG 08/06/2020 12:00:00 AM EDT 1.0 {tablet_at_bedtime} active Mirtazapine 15 MG eCW1 ([facility]) 5 mg 07/25/2020 12:00:00 AM EDT capsule 30 TAKE ONE CAPSULE BY MOUTH EVERY DAY AT BEDTIME TAKE ONE CAPSULE BY MOUTH EVERY DAY AT BEDTIME SOLD: 05/20/2 021 [facility] 5 mg 07/25/2020 12:00:00 AM EDT capsule 30 TAKE ONE CAPSULE BY MOUTH EVERY DAY AT BEDTIME TAKE ONE CAPSULE BY MOUTH EVERY DAY AT BEDTIME SOLD: 021 [facility] 5 mg 07/25/2020 12:00:00 AM EDT capsule 30 TAKE ONE CAPSULE BY MOUTH EVERY DAY AT BEDTIME TAKE ONE CAPSULE BY MOUTH EVERY DAY AT BEDTIME SOLD: 021 [facility] Terazosin 5 MG Oral Capsule Terazosin HCl 5 MG Terazosin HCl 5 MG 07/24/2020 12:00:00 AM EDT 1.0 {capsule_at_bedtime} active Terazosin HCl 5 MG eCW1 ([facility]) Terazosin 5 MG Oral Capsule Terazosin HCl 5 MG Terazosin HCl 5 MG 07/24/2020 12:00:00 AM EDT 1.0 {capsule_at_bedtime} active Terazosin HCl 5 MG eCW1 ([facility]) Terazosin 5 MG Oral Capsule Terazosin HCl 5 MG Terazosin HCl 5 MG 07/24/2020 12:00:00 AM EDT 1.0 {capsule_at_bedtime} suspend ed Terazosin HCl 5 MG eCW1 ([facility]) Terazosin 5 MG Oral Capsule Terazosin HCl 5 MG Terazosin HCl 5 MG 07/24/2020 12:00:00 AM EDT 1.0 {capsule_at_bedtime} active Terazosin HCl 5 MG eCW1 ([facility]) Terazosin 5 MG Oral Capsule Terazosin HCl 5 MG Terazosin HCl 5 MG 07/24/2020 12:00:00 AM EDT 1.0 {capsule_at_bedtime} active Terazosin HCl 5 MG eCW1 ([facility]) Terazosin 5 MG Oral Capsule Terazosin HCl 5 MG Terazosin HCl 5 MG 07/24/2020 12:00:00 AM EDT 1.0 {capsule_at_bedtime} active Terazosin HCl 5 MG eCW1 ([facility]) Terazosin 5 MG Oral Capsule Terazosin HCl 5 MG Terazosin HCl 5 MG 07/24/2020 12:00:00 AM EDT 1.0 {capsule_at_bedtime} active Terazosin HCl 5 MG eCW1 ([facility]) Terazosin 5 MG Oral Capsule Terazosin HCl 5 MG Terazosin HCl 5 MG 07/24/2020 12:00:00 AM EDT 1.0 {capsule_at_bedtime} active Terazosin HCl 5 MG eCW1 ([facility]) Terazosin 5 MG Oral Capsule Terazosin HCl 5 MG Terazosin HCl 5 MG 07/24/2020 12:00:00 AM EDT 1.0 {capsule_at_bedtime} active Terazosin HCl 5 MG eCW1 ([facility]) Terazosin 5 MG Oral Capsule Terazosin HCl 5 MG Terazosin HCl 5 MG 07/24/2020 12:00:00 AM EDT 1.0 {capsule_at_bedtime} active Terazosin HCl 5 MG eCW1 ([facility]) Terazosin 5 MG Oral Capsule Terazosin HCl 5 MG Terazosin HCl 5 MG 07/24/2020 12:00:00 AM EDT 1.0 {capsule_at_bedtime} active Terazosin HCl 5 MG eCW1 ([facility]) Terazosin 5 MG Oral Capsule Terazosin HCl 5 MG Terazosin HCl 5 MG 07/24/2020 12:00:00 AM EDT 1.0 {capsule_at_bedtime} active Terazosin HCl 5 MG eCW1 ([facility]) Terazosin 5 MG Oral Capsule Terazosin HCl 5 MG Terazosin HCl 5 MG 07/24/2020 12:00:00 AM EDT 1.0 {capsule_at_bedtime} active Terazosin HCl 5 MG eCW1 ([facility]) Terazosin 5 MG Oral Capsule Terazosin HCl 5 MG Terazosin HCl 5 MG 07/24/2020 12:00:00 AM EDT 1.0 {capsule_at_bedtime} active Terazosin HCl 5 MG eCW1 ([facility]) Terazosin 5 MG Oral Capsule Terazosin HCl 5 MG Terazosin HCl 5 MG 07/24/2020 12:00:00 AM EDT 1.0 {capsule_at_bedtime} active Terazosin HCl 5 MG eCW1 ([facility]) Terazosin 5 MG Oral Capsule Terazosin HCl 5 MG Terazosin HCl 5 MG 07/24/2020 12:00:00 AM EDT 1.0 {capsule_at_bedtime} active Terazosin HCl 5 MG eCW1 ([facility]) Terazosin 5 MG Oral Capsule Terazosin HCl 5 MG Terazosin HCl 5 MG 07/24/2020 12:00:00 AM EDT 1.0 {capsule_at_bedtime} active Terazosin HCl 5 MG eCW1 ([facility]) pantoprazole 40 MG Delayed Release Oral Tablet PANTOPRAZOLE SODIUM 07/23/2020 12:00:00 AM EDT tablet,delayed release (DR/EC) 90 T JUSTYNA ONE TABLET BY MOUTH EVERY DAY TAKE ONE TABLET BY MOUTH EVERY DAY SOLD: 07/24/2020 [facility] 10 mg 07/09/2020 12:00:00 AM EDT tablet 270 TAKE ONE TABLET BY MOUTH THREE TIMES A DAY FOR TREMOR TAKE ONE TABLET BY MOUTH THREE TIMES A DAY FOR TREMOR SOLD: 07/10/2020 [facility] 25 mg 07/09/2020 12:00:00 AM EDT tablet 30 TAKE ONE TABLET BY MOUTH AT BEDTIME TAKE ONE TABLET BY MOUTH AT BEDTIME SOLD: 07/10/2020 [facility] 10 mg 07/09/2020 12:00:00 AM EDT tablet 270 TAKE ONE TABLET BY MOUTH THREE TIMES A DAY FOR TREMOR TAKE ONE TABLET BY MOUTH THREE TIMES A DAY FOR TREMOR SOLD: 10/13/2020 [facility] Propranolol Hydrochloride 10 MG Oral Tablet propranolo l (INDERAL) 10 MG tablet propranolol (INDERAL) 10 MG tablet 07/09/2020 12:00:00 AM EDT active TAKE ONE TABLET BY MOUTH THREE TIMES A D AY FOR TREMOR [facility] quetiapine 25 MG Oral Tablet QUEtiapine (SEROQUEL) 25 MG tablet QUEtiapine (SEROQUEL) 25 MG tablet 07/09/2020 12:00:00 AM EDT 25 mg Oral active Take 25 mg by mouth [facility] Hannah-Bid Probiotic - Hannah-Bid Probiotic - 07/08/2020 12:00:00 AM EDT active Hannah-Bid Probiotic - eCW1 ([facility]) 1 billion cell- 250 mg 07/08/2020 12:00:00 AM EDT tablet 60 TAKE ONE TABLET BY MOUTH TWICE A DAY TAKE ONE TABLET BY MOUTH TWICE A DAY SOLD: 09/10/2020 [facility] Hannah-Bid Probiotic - Hannah-Bid Probiotic - 07/08/2020 12:00:00 AM EDT active Hannah-Bid Probiotic - eCW1 ([facility]) Hannah-Bid Probiotic - Hannah-Bid Probiotic - 07/08/2020 12:00:00 AM EDT active Hannah-Bid Probiotic - eCW1 ([facility]) Hannah-Bid Probiotic - Hannah-Bid Probiotic - 07/08/2020 12:00:00 AM EDT active Hannah-Bid Probiotic - eCW1 ([facility]) Hannah-Bid Probiotic - Hannah-Bid Probiotic - 07/08/2020 12:00:00 AM EDT active Hannah-Bid Probiotic - eCW1 ([facility]) Hannah-Bid Probiotic - Hannah-Bid Probiotic - 07/08/2020 12:00:00 AM EDT active Hannah-Bid Probiotic - eCW1 ([facility]) Hannah-Bid Probiotic - Hannah-Bid Probiotic - 07/08/2020 12:00:00 AM EDT active Hannah-Bid Probiotic - eCW1 ([facility]) Hannah-Bid Probiotic - Hannah-Bid Probiotic - 07/08/2020 12:00:00 AM EDT active Hannah-Bid Probiotic - eCW1 ([facility]) Hannah-Bid Probiotic - Hannah-Bid Probiotic - 07/08/2020 12:00:00 AM EDT active Hannah-Bid Probiotic - eCW1 ([facility]) Hannah-Bid Probiotic - Hannah-Bid Probiotic - 07/08/2020 12:00:00 AM EDT active Hannah-Bid Probiotic - eCW1 ([facility]) 1 billion cell- 250 mg 07/08/2020 12:00:00 AM EDT tablet 60 TAKE ONE TABLET BY MOUTH TWICE A DAY TAKE ONE TABLET BY MOUTH TWICE A DAY SOLD: 07/10/2020 [facility] Hannah-Bid Probiotic - Hannah-Bid Probiotic - 07/08/2020 12:00:00 AM EDT active Hannah-Bid Probiotic - eCW1 ([facility]) Hannah-Bid Probiotic - Hannah-Bid Probiotic - 07/08/2020 12:00:00 AM EDT active Hannah-Bid Probiotic - eCW1 ([facility]) Hannah-Bid Probiotic - Hannah-Bid Probiotic - 07/08/2020 12:00:00 AM EDT active Hannah-Bid Probiotic - eCW1 ([facility]) Hannah-Bid Probiotic - Hannah-Bid Probiotic - 07/08/2020 12:00:00 AM EDT active Hannah-Bid Probiotic - eCW1 ([facility]) Hannah-Bid Probiotic - Hannah-Bid Probiotic - 07/08/2020 12:00:00 AM EDT active Hannah-Bid Probiotic - eCW1 ([facility]) Hannah-Bid Probiotic - Hannah-Bid Probiotic - 07/08/2020 12:00:00 AM EDT suspended Hannah-Bid Probiotic - eCW1 ([facility]) Hannah-Bid Probiotic - Hannah-Bid Probiotic - 07/08/2020 12:00:00 AM EDT active Hannah-Bid Probiotic - eCW1 ([facility]) Hannah-Bid Probiotic - Hannah-Bid Probiotic - 07/08/2020 12:00:00 AM EDT active Hannah-Bid Probiotic - eCW1 ([facility]) Hannah-Bid Probiotic - Hannah-Bid Probiotic - 07/08/2020 12:00:00 AM EDT active Hannah-Bid Probiotic - eCW1 ([facility]) Hannah-Bid Probiotic - Hannah-Bid Probiotic - 07/08/2020 12:00:00 AM EDT active Hannah-Bid Probiotic - eCW1 ([facility]) 5 mg 06/24/2020 12:00:00 AM EDT capsule 30 TAKE ONE CAPSULE BY MOUTH AT BEDTIME TAKE ONE CAPSULE BY MOUTH AT BEDTIME SOLD: 06/25/2020 [facility] Terazosin 5 MG Oral Capsule terazosin (HYTRIN) 5 MG ca psule terazosin (HYTRIN) 5 MG capsule 06/24/2020 12:00:00 AM EDT 5 mg Oral active Take 5 mg by mouth [facility] Terazosin 5 MG Oral Capsule Terazosin HCl 5 MG Terazosin HCl 5 MG 06/23/2020 12:00:00 AM EDT 1.0 {capsule_at_bedtime} active Terazosin HCl 5 MG eCW1 ([facility]) Terazosin 5 MG Oral Capsule Terazosin HCl 5 MG Terazosin HCl 5 MG 06/23/2020 12:00:00 AM EDT 1.0 {capsule_at_bedtime} active Terazosin HCl 5 MG eCW1 ([facility]) Terazosin 5 MG Oral Capsule Terazosin HCl 5 MG Terazosin HCl 5 MG 06/23/2020 12:00:00 AM EDT 1.0 {capsule_at_bedtime} active Terazosin HCl 5 MG eCW1 ([facility]) Terazosin 5 MG Oral Capsule Terazosin HCl 5 MG Terazosin HCl 5 MG 06/23/2020 12:00:00 AM EDT 1.0 {capsule_at_bedtime} active Terazosin HCl 5 MG eCW1 ([facility]) Terazosin 5 MG Oral Capsule Terazosin HCl 5 MG Terazosin HCl 5 MG 06/23/2020 12:00:00 AM EDT 1.0 {capsule_at_bedtime} active Terazosin HCl 5 MG eCW1 ([facility]) Terazosin 5 MG Oral Capsule Terazosin HCl 5 MG Terazosin HCl 5 MG 06/23/2020 12:00:00 AM EDT 1.0 {capsule_at_bedtime} active Terazosin HCl 5 MG eCW1 ([facility]) Terazosin 5 MG Oral Capsule Terazosin HCl 5 MG Terazosin HCl 5 MG 06/23/2020 12:00:00 AM EDT 1.0 {capsule_at_bedtime} active Terazosin HCl 5 MG eCW1 ([facility]) Terazosin 5 MG Oral Capsule Terazosin HCl 5 MG Terazosin HCl 5 MG 06/23/2020 12:00:00 AM EDT 1.0 {capsule_at_bedtime} active Terazosin HCl 5 MG eCW1 ([facility]) Terazosin 5 MG Oral Capsule Terazosin HCl 5 MG Terazosin HCl 5 MG 06/23/2020 12:00:00 AM EDT 1.0 {capsule_at_bedtime} active Terazosin HCl 5 MG eCW1 ([facility]) Terazosin 5 MG Oral Capsule Terazosin HCl 5 MG Terazosin HCl 5 MG 06/23/2020 12:00:00 AM EDT 1.0 {capsule_at_bedtime} active Terazosin HCl 5 MG eCW1 ([facility]) Terazosin 5 MG Oral Capsule Terazosin HCl 5 MG Terazosin HCl 5 MG 06/23/2020 12:00:00 AM EDT 1.0 {capsule_at_bedtime} active Terazosin HCl 5 MG eCW1 ([facility]) 25 mg 06/16/2020 12:00:00 AM EDT tablet 30 TAKE ONE TABLET BY MOUTH AT BEDTIME TAKE ONE TABLET BY MOUTH AT BEDTIME SOLD: 06/16/2020 [facility] 1 billion cell- 250 mg 06/12/2020 12:00:00 AM EST tablet 30 TAKE ONE TABLET BY MOUTH EVERY DAY TAKE ONE TABLET BY MOUTH EVERY DAY SOLD: 06/13/2020 [facility] 10 mg 06/11/2020 12:00:00 AM EST tablet 90 TAKE ONE TABLET BY MOUTH THREE TIMES A DAY TAKE ONE TABLET BY MOUTH THREE TIMES A DAY SOLD: 06/13/2020 [facility] atorvastatin 40 MG Oral Tablet ATORVASTATIN CALCIUM 06/11/2020 1 2:00:00 AM EST tablet 30 TAKE ONE TABLET BY MOUTH EVERY D AY TAKE ONE TABLET BY MOUTH EVERY DAY SOLD: 06/13/2020 [facility] 25 mg 06/11/2020 12:00:00 AM EST tablet 15 TAKE 1/2 TABLET BY MOUTH ONCE DAILY TAKE 1/2 TABLET BY MOUTH ONCE DAILY SOLD: 06/13/2020 [facility] 75 mg 06/11/2020 12:00:00 AM EST tablet 15 TAKE ONE TABLET BY MOUTH EVERY OTHER DAY AT 9:00AM TAKE ONE TABLET BY MOUTH EVERY OTHER DAY AT 9:00AM TAMMIE [facility] atorvastatin 40 MG Oral Tablet atorvastatin (LIPITOR) 40 MG tablet atorvastatin (LIPITOR) 40 MG tablet 06/11/2020 12:00:00 AM EST 40 mg Oral active Take 40 mg by mouth daily [facility] clopidogrel 75 MG Oral Tablet clopidogrel (PLAVIX) 75 MG tablet clopidogrel (PLAVIX) 75 MG tablet 06/11/2020 12:00:00 AM EST 75 mg Oral active Take 75 mg by mouth Tuesday and Tuesday [facility] clopidogrel 75 MG Oral Tablet Clopidogrel Bisulfate 75 MG Oral Tablet (PLAVIX) Clopidogrel Bisulfate 75 MG Oral Tablet (PLAVIX) 06/07/2020 12:00:00 AM EST 75 mg Oral active Take 1 tablet by mouth e very other day [facility] pantoprazole 40 MG Delayed Release Oral Tablet Pantoprazole Sodium 40 MG Oral Tablet Delayed Release (PROTONIX) Pantoprazole Sodium 40 MG Oral Tablet De layed Release (PROTONIX) 06/06/2020 12:00:00 AM EST 40 mg Oral active Take 1 tablet by mouth every morning before breakfast [facility] atorvastatin 40 MG Oral Tablet Atorvastatin Calcium 40 MG Oral Tablet (LIPITOR) Atorvastatin Calcium 40 MG Oral Tablet (LIPITOR) 06/06/2020 12:00:00 AM EST 40 mg Oral active Take 1 tablet by mouth [address] [facility] Amlodipine 5 MG Oral Tablet amLODIPine Besylate 5 MG O ral Tablet (NORVASC) amLODIPine Besylate 5 MG Oral Tablet (NORVASC) 06/06/2020 12:00:00 AM EST 5 mg Oral active Take 1 tablet by mouth [address] [facility] quetiapine 25 MG Oral Tablet QUEtiapine (SEROquel) tab let 25 mg QUEtiapine (SEROquel) tablet 25 mg 06/05/2020 10:00:00 PM EST 25 mg Oral active 25 mg, Oral, Nightly, First dose on Tue06/05/20 at 2200, For 30 days [facility] Medication administered onsite sennosides, PRISON 8.6 MG Oral Tablet senna (SENOKOT) 8.6 MG TABS senna (SENOKOT) 8.6 MG TABS 06/05/2020 12:00:00 AM EST 2 {tbl} Oral activ e Take 2 tablets by mouth [facility] Benzocaine 15 MG / Menthol 3.6 MG Oral L ozenge Benzocaine-Menthol 15-3.6 MG LOZG Benzocaine-Menthol 15-3.6 MG LOZG 06/05/2020 12:00:00 AM EST 1 {lozenge} aborted 1 lozenge [facility] Glucose 0.417 MG/MG Oral Gel dextrose (GLUTOSE) 40 % G EL dextrose (GLUTOSE) 40 % GEL 06/05/2020 12:00:00 AM EST 15 g Oral aborted Take 15 g by mouth [facility] Propranolol Hydrochloride 10 MG Oral Tab let Propranolol HCl 10 MG Oral Tablet (INDERAL) Propranolol HCl 10 MG Oral Tablet (INDERAL) 06/05/2020 12:00:00 AM EST 10 mg Oral active Take 1 tablet by mouth Three times daily [facility] sennosides, PRISON 8.6 MG Oral Tablet Senna 8.6 MG Oral T ablet Senna 8.6 MG Oral Tablet 06/05/2020 12:00:00 AM EST 2 {tbl} Oral active Take 2 tablets by mouth nightly as needed [facility] quetiapine 25 MG Oral Tablet QUEtiapine Fumarate 25 MG Oral Tablet (SEROquel) QUEtiapine Fumarate 25 MG Oral Tablet (SEROquel) 06/05/2020 12:00:00 AM EST 25 mg Oral active Take 1 tablet by mouth n [facility] Docusate Sodium 100 MG Oral Capsule Docu sate Sodium 100 MG Oral Capsule (COLACE) Docusate Sodium 100 MG Oral Capsule (COLACE) 06/05/2020 12:00:00 AM EST 100 mg Oral active Take 1 capsule by mouth Two Times Daily for 10 days [facility] Bisacodyl 10 MG Rectal Suppository Bisac odyl 10 MG Rectal Suppository (DULCOLAX) Bisacodyl 10 MG Rectal Suppository (DULCOLAX) 06/05/2020 12:00:0 0 AM EST [address] 1 miles ppository rectally every 3 (three) days as needed for Constipation for up to 10 days [facility] Glucose 0.417 MG/MG Oral Gel Glucose 40 % Oral Gel (GL UTOSE) Glucose 40 % Oral Gel (GLUTOSE) 06/05/2020 12:00:00 AM EST 15 g Oral acti ve Take 37.5 mLs by mouth as needed (for gluose 55-69 mg/dl and able to take PO) [facility] Benzocaine 15 MG / Menthol 3.6 MG Oral L ozenge Benzocaine-Menthol 15-3.6 MG Mouth/Throat Lozenge (CEPACOL) Benzocaine-Menthol 15-3.6 MG Mouth/Throa t Lozenge (CEPACOL) 06/05/2020 12:00:00 AM EST 1 {lozenge} Mouth/Throat active Use as directed 1 lozenge in the mouth or throat every 2 (two) hours as needed [facility] Propranolol Hydrochloride 10 MG Oral Tablet propranolo l (INDERAL) tablet 10 mg propranolol (INDERAL) tablet 10 mg 06/04/2020 05:00:00 PM EST 10 mg Oral active 10 mg, Oral, Three Times Daily Standard, First dose on Tue06/04/20 at 1700, For 30 days
Check vital signs before administering
[facility] Medication administered onsite Magnesium Hydroxide 80 MG/ML Oral Suspen gala magnesium hydroxide (MILK OF MAGNESIA) 400 MG/5ML suspension 45 mL magnesium hydroxide (MILK OF MAGNESIA) 4 00 MG/5ML suspension 45 mL 06/03/2020 10:00:00 PM EST 45 mL Oral active 45 mL, Oral, Nightly, First dose on Tue06/03/20 at 2200, For 30 days
If serum creatinine > 2 notify provider before administering.
[facility] Medication administered onsite Trazodone Hydrochloride 50 MG Oral Tablet trazodone (D ESYREL) tablet 50 mg trazodone (DESYREL) tablet 50 mg 06/03/2020 09:15:00 PM EST 50 mg Oral completed 50 mg, Oral, Once, Tue06/03/20 at 2115, For 1 dose [facility] Medication administered onsite quetiapine 25 MG Oral Tablet QUEtiapine (SEROquel) tab let 25 mg QUEtiapine (SEROquel) tablet 25 mg 06/03/2020 07:00:00 PM EST 25 mg Oral completed 25 mg, Oral, Once, Tue06/03/20 at 1900, For [facility] Medication administered onsite 1 ML Lorazepam 2 MG/ML Injection LORazepam (ATIVAN) in jection 1 mg LORazepam (ATIVAN) injection 1 mg 06/03/2020 06:03:19 PM EST 1 mg Intraveno us completed 1 mg, Intravenous, O nce PRN, imaging, Starting Tue06/03/20 at 1803, For 1 dose [facility] Medication administered onsite sodium chloride 0.9 % bolus 500 mL [id number] 06/03/2020 02:15:00 PM EST 500 mL Intravenous completed 500 mL, Intravenous, Once, Tue06/03/20 at 1415, For 1 dose [facility] Medication administered onsite Lactulose 667 MG/ML Oral Solution lactulose (CHRONULAC ) solution 30 mL lactulose (CHRONULAC) solution 30 mL 06/03/2020 10:15:00 AM EST 30 mL Oral completed 30 mL, Oral, Three Times Daily Standard, First dose on Tue06/03/20 at 1015, For 1 dose [facility] Medication administered onsite clopidogrel 75 MG Oral Tablet clopidogrel (PLAVIX) tab let 75 mg clopidogrel (PLAVIX) tablet 75 mg 06/03/2020 09:00:00 AM EST 75 mg Oral active 75 mg, Oral, Every other day, First dose on Tue06/03/20 at 0900, For 21 days [facility] Medication administered onsite Trazodone Hydrochloride 50 MG Oral Tablet trazodone (D ESYREL) tablet 50 mg trazodone (DESYREL) tablet 50 mg 06/03/2020 01:15:00 AM EST 50 mg Oral completed 50 mg, Oral, Once, Tue06/03/20 at 0115, For 1 dose [facility] Medication administered onsite sennosides, PRISON 35.2 MG/ML Oral Solution senna (SENOKO T) syrup 10 mL senna (SENOKOT) syrup 10 mL 06/03/2020 01:12:35 AM EST 10 mL Oral active 10 mL, Oral, Nightly PRN, Constipation, Starting Tue06/03/20 at 0112, For 30 days [facility] Medication administered onsite Bisacodyl 10 MG Rectal Suppository bisacodyl (DULCOLAX ) suppository 10 mg bisacodyl (DULCOLAX) suppository 10 mg 06/03/2020 01:12:35 AM EST 10 mg Rectal active 10 mg, Rectal, Every 72 hours PRN, Constipation, Starting Tue06/03/20 at 0112, For 30 days
Hold if patient has had BM within the past 2 days.
[facility] Medication administered onsite sennosides, PRISON 8.6 MG Oral Tablet senna tablet 2 tablet sen na tablet 2 tablet 06/03/2020 01:12:35 AM EST 2 {tbl} Oral active 2 tablet, Oral, Nightly PRN, Constipation, Starting Tue06/03/20 at 0112, For 30 days [facility] Medication administered onsite POLYETHYLENE GLYCOL 3350 142 MG/ML Oral Solution polyethylene glycol (MIRALAX) packet 17 g polyethylene glycol (MIRALAX) packet 17 g 06/02/2020 0 9:00:00 AM EST 17 g Oral active 17 g, Or al, Daily Standard, First dose on Tue06/02/20 at 0900, For 30 days
Mix in 8 ounces of water, juice or milk. Avoid use in patients who require thickened liquids due to potential increased risk for aspiration.
[facility] Medication administered onsite atorvastatin 40 MG Oral Tablet atorvastatin (LIPITOR) tablet 40 mg atorvastatin (LIPITOR) tablet 40 mg 06/02/2020 09:00:00 AM EST 40 mg Oral active 40 mg, Oral, Daily Standard, First dose (after last modification) on Tue06/02/20 at 0900, For 28 doses [facility] Medication administered onsite Docusate Sodium 100 MG Oral Capsule docusate sodium (C OLACE) capsule 100 mg docusate sodium (COLACE) capsule 100 mg 06/01/2020 09:00:00 PM EST 100 mg Oral active 100 mg, Oral, 2 Times Daily, First dose on Tue06/01/20 at 2100, For 30 days [facility] Medication administered onsite Doxepin Hydrochloride 50 MG Oral Capsule doxepin (SINE KRISTINE) capsule 100 mg doxepin (SINEQUAN) capsule 100 mg 05/31/2020 11:30:00 PM EST 100 mg Oral active 100 mg, Oral, Nightl y, First dose (after last modification) on 05/31/20 at 2330, For 30 days [facility] Medication administered onsite Carbidopa 25 MG / Levodopa 100 MG Oral T ablet carbidopa-levodopa (SINEMET) 25- 100 MG per tablet 0.5 tablet carbidopa-levodopa (SINEMET) 25-100 MG p er tablet 0.5 tablet 05/31/2020 11:30:00 PM EST 0.5 {tbl} Oral abor amanuel 0.5 tablet, Oral, Three Times Daily Standard, First dose (after last modification) on [facility] 05/31/20 at 2330, For 30 days [facility] Medication administered onsite Melatonin 5 MG Oral Tablet melatonin tablet 5 mg melatonin t ablet 5 mg 05/31/2020 08:00:00 PM EST 5 mg Oral completed 5 mg, Oral, Nightly, First dose (after last modification) on [facility] 05/31/20 at 2000, For 1 day [facility] Medication administered onsite Benzocaine 15 MG / Menthol 3.6 MG Oral L ozenge benzocaine-menthol (CEPACOL) 15- 3.6 MG per lozenge 1 lozenge benzocaine-menthol (CEPACOL) 15-3.6 MG p er lozenge 1 lozenge 05/31/2020 03:51:37 PM EST 1 {lozenge} Mouth/Throat active 1 lozenge, Mouth/Throat, Every 2 hours PRN, Sore Throat, Starting 05/31/20 at 1551, For 30 days [facility] Medication administered onsite Amlodipine 5 MG Oral Tablet amlodipine (NORVASC) table t 5 mg amlodipine (NORVASC) tablet 5 mg 05/31/2020 09:00:00 AM EST 5 mg Oral active 5 mg, Oral, Daily Standard, First dose on 05/31/20 at 0900, For 30 days
Check vital signs before administering
[facility] Medication administered onsite Bisoprolol Fumarate 5 MG Oral Tablet bisoprolol (ZEBET A) tablet 5 mg bisoprolol (ZEBETA) tablet 5 mg 05/31/2020 09:00:00 AM EST 5 mg Oral aborted 5 mg, Oral, Daily Standard, First dose on 05/31/20 at 0900, For 30 days [facility] Medication administered onsite Allopurinol 100 MG Oral Tablet allopurinol (ZYLOPRIM) tablet 100 mg allopurinol (ZYLOPRIM) tablet 100 mg 05/31/2020 09:00:00 AM EST 100 mg Oral active 100 mg, Oral, Daily Standard, First dose on Sat at 0900, For 30 days [facility] Medication administered onsite NaCl infusion 0.9 % [id number] 05/31/2020 09:00:00 AM EST Intravenous completed at 75 mL/hr, Intrave nous, Continuous, Starting 05/31/20 at 0900, For 1 day [facility] Medication administered onsite atorvastatin 40 MG Oral Tablet atorvastatin (LIPITOR) tablet 80 mg atorvastatin (LIPITOR) tablet 80 mg 05/31/2020 09:00:00 AM EST 80 mg Oral aborted 80 mg, Oral, Daily Standard, First dose on 05/31/20 at 0900, For 30 days [facility] Medication administered onsite insulin lispro (HumaLOG) injection LOW DOSE EATING INS ULIN patients 1-8 Units [id number] 05/31/2020 08:00:00 AM EST U Subcutaneous active 1-8 Units, Subcutaneous, Three Times Daily-With Meals, First dose on 05/31/20 at 0800, For 30 days
Nursing MUST open the 'SQ Insulin Dosing Charts' Sidebar Report, or, the Patient Summary or Summary Report within the ED.
[facility] Medication administered onsite 60 ACTUAT Budesonide 0.08 MG/ACTUAT / fo rmoterol fumarate 0.0045 MG/ACTUAT Metered Dose Inhaler budesonide-formoterol (SYMBICORT) 80-4.5 MCG/ACT inhaler 2 puff budesonide-formoterol (SYMBICORT) 80-4.5 MCG/ACT inhal er 2 puff 05/31/2020 08:00:00 AM EST 2 {puff} Inhalation active 2 puff, Inhalation, 2 Times Daily, First dose on 05/31/20 at 0800, For 14 days
Shake well before using
[facility] Medication administered onsite pantoprazole 40 MG Delayed Release Oral Tablet pantoprazole (PROTONIX) EC tablet 40 mg pantoprazole (PROTONIX) EC tablet 40 mg 05/31/2020 07:30:[address] 40 mg Oral active 40 mg, Ora l, Before Breakfast, First dose on 05/31/20 at 0730, For 30 days
Do not crush or chew
[facility] Medication administered onsite Glucagon 1 MG Injection glucagon (human recombinant) ( GLUCAGEN) injection 1 mg glucagon (human recombinant) (GLUCAGEN) injection 1 mg 05/31/2020 03:53:07 AM EST 1 mg Intramuscular active 1 mg, Intramuscular, PRN, for glucose <55 without IV access, Starting 05/31/20 at 0353, For 30 days [facility] Medication administered onsite dextrose 50 % IV solution 25 mL [id number] 05/31/2020 03:53:[address] 25 mL Intravenous active 25 mL, Intrav enous, PRN, Other, blood glucose <55, Starting 05/31/20 at 0353, For 30 days
Not for midline administration.
[facility] Medication administered onsite Glucose 0.417 MG/MG Oral Gel glucose (GLUTOSE) 40 % or al gel 15 g glucose (GLUTOSE) 40 % oral gel 15 g 05/31/2020 03:53:07 AM EST 15 g Oral active 15 g, Oral, PRN, Low blood s ugar, for gluose 55-69 mg/dl and able to take PO, Starting 05/31/20 at 0353, For 30 days [facility] Medication administered onsite 10 mg 05/30/2020 12:00:00 AM EST tablet 90 TAKE ONE TABLET BY MOUTH EVERY DAY TAKE ONE TABLET BY MOUTH EVERY DAY SOLD: 05/31/2020 [facility] 100 mg 05/26/2020 12:00:00 AM EST capsule 20 TAKE ONE CAPSULE BY MOUTH TWICE A DAY FOR 10 DAYS TAKE ONE CAPSULE BY MOUTH TWICE A DAY FOR 10 DAYS SOLD : 05/29/2020 [facility] Doxycycline Monohydrate 100 MG Oral Caps ule doxycycline (MONODOX) 100 MG capsule doxycycline (MONODOX) 100 MG capsule 05/26/2020 12:00:00 AM EST aborted TAKE ONE CAPSULE BY MOUTH TWICE A DAY FOR 10 DAYS [facility] doxycycline hyclate 100 MG Oral Capsule Doxycycline Hyclate 100 MG Oral Capsule (VIBRAMYCIN) Doxycycline Hyclate 100 MG Oral Capsule (VIBRAMYCIN) 0 05/26/2020 12:00:00 AM EST 100 mg Oral aborted Take 100 mg by mouth Two Times Daily for 10 days. [facility] Doxycycline Monohydrate 100 MG Oral Capsule Doxycycline Gove hydrate 100 MG 05/22/2020 12:00:00 AM EST 1.0 {capsule} active Doxycycline Monohydrate 100 MG eCW1 ([facility]) Doxycycline Monohydrate 100 MG Oral Capsule Doxycycline Gove hydrate 100 MG 05/22/2020 12:00:00 AM EST 1.0 {capsule} active Doxycycline Monohydrate 100 MG eCW1 ([facility]) Doxycycline Monohydrate 100 MG Oral Capsule Doxycycline Gove hydrate 100 MG 05/22/2020 12:00:00 AM EST 1.0 {capsule} active Doxycycline Monohydrate 100 MG eCW1 ([facility]) Doxycycline Monohydrate 100 MG Oral Capsule Doxycycline Gove hydrate 100 MG 05/22/2020 12:00:00 AM EST 1.0 {capsule} active Doxycycline Monohydrate 100 MG eCW1 ([facility]) Doxycycline Monohydrate 100 MG Oral Capsule Doxycycline Gove hydrate 100 MG 05/22/2020 12:00:00 AM EST 1.0 {capsule} active Doxycycline Monohydrate 100 MG eCW1 ([facility]) Flonase Allergy Relief 50 MCG/ACT Flonase Allergy Relief 50 MCG/ACT 05/16/2020 12:00:00 AM EST 1.0 {spray_in_each_nostril} acti ve Flonase Allergy Relief 50 MCG/ACT eCW1 ([facility]) Flonase Allergy Relief 50 MCG/ACT Flonase Allergy Relief 50 MCG/ACT 05/16/2020 12:00:00 AM EST 1.0 {spray_in_each_nostril} acti ve Flonase Allergy Relief 50 MCG/ACT eCW1 ([facility]) Flonase Allergy Relief 50 MCG/ACT Flonase Allergy Relief 50 MCG/ACT 05/16/2020 12:00:00 AM EST 1.0 {spray_in_each_nostril} acti ve Flonase Allergy Relief 50 MCG/ACT eCW1 ([facility]) Flonase Allergy Relief 50 MCG/ACT Flonase Allergy Relief 50 MCG/ACT 05/16/2020 12:00:00 AM EST 1.0 {spray_in_each_nostril} acti ve Flonase Allergy Relief 50 MCG/ACT eCW1 ([facility]) Flonase Allergy Relief 50 MCG/ACT Flonase Allergy Relief 50 MCG/ACT 05/16/2020 12:00:00 AM EST 1.0 {spray_in_each_nostril} acti ve Flonase Allergy Relief 50 MCG/ACT eCW1 ([facility]) Flonase Allergy Relief 50 MCG/ACT Flonase Allergy Relief 50 MCG/ACT 05/16/2020 12:00:00 AM EST 1.0 {spray_in_each_nostril} acti ve Flonase Allergy Relief 50 MCG/ACT eCW1 ([facility]) Flonase Allergy Relief 50 MCG/ACT Flonase Allergy Relief 50 MCG/ACT 05/16/2020 12:00:00 AM EST 1.0 {spray_in_each_nostril} acti ve Flonase Allergy Relief 50 MCG/ACT eCW1 ([facility]) Flonase Allergy Relief 50 MCG/ACT Flonase Allergy Relief 50 MCG/ACT 05/16/2020 12:00:00 AM EST 1.0 {spray_in_each_nostril} acti ve Flonase Allergy Relief 50 MCG/ACT eCW1 ([facility]) Flonase Allergy Relief 50 MCG/ACT Flonase Allergy Relief 50 MCG/ACT 05/16/2020 12:00:00 AM EST 1.0 {spray_in_each_nostril} acti ve Flonase Allergy Relief 50 MCG/ACT eCW1 ([facility]) Flonase Allergy Relief 50 MCG/ACT Flonase Allergy Relief 50 MCG/ACT 05/16/2020 12:00:00 AM EST 1.0 {spray_in_each_nostril} acti ve Flonase Allergy Relief 50 MCG/ACT eCW1 ([facility]) 50 mcg/actuation 05/16/2020 12:00:00 AM EST spray,suspension 16 SPRAY 1 SPRAY IN EACH NOSTRIL TWO TIMES A DAY SPRAY 1 SPRAY IN EACH NOSTRIL TWO TIMES A DAY SOLD: 05/17/2020 [facility] Flonase Allergy Relief 50 MCG/ACT Flonase Allergy Relief 50 MCG/ACT 05/16/2020 12:00:00 AM EST 1.0 {spray_in_each_nostril} susp ended Flonase Allergy Relief 50 MCG/ACT eCW1 ([facility]) Flonase Allergy Relief 50 MCG/ACT Flonase Allergy Relief 50 MCG/ACT 05/16/2020 12:00:00 AM EST 1.0 {spray_in_each_nostril} acti ve Flonase Allergy Relief 50 MCG/ACT eCW1 ([facility]) Flonase Allergy Relief 50 MCG/ACT Flonase Allergy Relief 50 MCG/ACT 05/16/2020 12:00:00 AM EST 1.0 {spray_in_each_nostril} acti ve Flonase Allergy Relief 50 MCG/ACT eCW1 ([facility]) Flonase Allergy Relief 50 MCG/ACT Flonase Allergy Relief 50 MCG/ACT 05/16/2020 12:00:00 AM EST 1.0 {spray_in_each_nostril} acti ve Flonase Allergy Relief 50 MCG/ACT eCW1 ([facility]) Flonase Allergy Relief 50 MCG/ACT Flonase Allergy Relief 50 MCG/ACT 05/16/2020 12:00:00 AM EST 1.0 {spray_in_each_nostril} acti ve Flonase Allergy Relief 50 MCG/ACT eCW1 ([facility]) Flonase Allergy Relief 50 MCG/ACT Flonase Allergy Relief 50 MCG/ACT 05/16/2020 12:00:00 AM EST 1.0 {spray_in_each_nostril} acti ve Flonase Allergy Relief 50 MCG/ACT eCW1 ([facility]) Flonase Allergy Relief 50 MCG/ACT Flonase Allergy Relief 50 MCG/ACT 05/16/2020 12:00:00 AM EST 1.0 {spray_in_each_nostril} acti ve Flonase Allergy Relief 50 MCG/ACT eCW1 ([facility]) Flonase Allergy Relief 50 MCG/ACT Flonase Allergy Relief 50 MCG/ACT 05/16/2020 12:00:00 AM EST 1.0 {spray_in_each_nostril} acti ve Flonase Allergy Relief 50 MCG/ACT eCW1 ([facility]) Flonase Allergy Relief 50 MCG/ACT Flonase Allergy Relief 50 MCG/ACT 05/16/2020 12:00:00 AM EST 1.0 {spray_in_each_nostril} acti ve Flonase Allergy Relief 50 MCG/ACT eCW1 ([facility]) Flonase Allergy Relief 50 MCG/ACT Flonase Allergy Relief 50 MCG/ACT 05/16/2020 12:00:00 AM EST 1.0 {spray_in_each_nostril} acti ve Flonase Allergy Relief 50 MCG/ACT eCW1 ([facility]) Flonase Allergy Relief 50 MCG/ACT Flonase Allergy Relief 50 MCG/ACT 05/16/2020 12:00:00 AM EST 1.0 {spray_in_each_nostril} acti ve Flonase Allergy Relief 50 MCG/ACT eCW1 ([facility]) Flonase Allergy Relief 50 MCG/ACT Flonase Allergy Relief 50 MCG/ACT 05/16/2020 12:00:00 AM EST 1.0 {spray_in_each_nostril} acti ve Flonase Allergy Relief 50 MCG/ACT eCW1 ([facility]) Flonase Allergy Relief 50 MCG/ACT Flonase Allergy Relief 50 MCG/ACT 05/16/2020 12:00:00 AM EST 1.0 {spray_in_each_nostril} acti ve Flonase Allergy Relief 50 MCG/ACT eCW1 ([facility]) fluticasone (FLONASE) 50 MCG/ACT nasal spray [id number] 05/16/2020 12:00:00 AM EST active SPRAY 1 SPRAY IN EACH NOSTRIL TWO TIMES A DAY [facility] Flonase Allergy Relief 50 MCG/ACT Flonase Allergy Relief 50 MCG/ACT 05/16/2020 12:00:00 AM EST 1.0 {spray_in_each_nostril} acti ve Flonase Allergy Relief 50 MCG/ACT eCW1 ([facility]) Flonase Allergy Relief 50 MCG/ACT Flonase Allergy Relief 50 MCG/ACT 05/16/2020 12:00:00 AM EST 1.0 {spray_in_each_nostril} acti ve Flonase Allergy Relief 50 MCG/ACT eCW1 ([facility]) Flonase Allergy Relief 50 MCG/ACT Flonase Allergy Relief 50 MCG/ACT 05/16/2020 12:00:00 AM EST 1.0 {spray_in_each_nostril} acti ve Flonase Allergy Relief 50 MCG/ACT eCW1 ([facility]) Flonase Allergy Relief 50 MCG/ACT Flonase Allergy Relief 50 MCG/ACT 05/16/2020 12:00:00 AM EST 1.0 {spray_in_each_nostril} acti ve Flonase Allergy Relief 50 MCG/ACT eCW1 ([facility]) Flonase Allergy Relief 50 MCG/ACT Flonase Allergy Relief 50 MCG/ACT 05/16/2020 12:00:00 AM EST 1.0 {spray_in_each_nostril} acti ve Flonase Allergy Relief 50 MCG/ACT eCW1 ([facility]) Flonase Allergy Relief 50 MCG/ACT Flonase Allergy Relief 50 MCG/ACT 05/16/2020 12:00:00 AM EST 1.0 {spray_in_each_nostril} acti ve Flonase Allergy Relief 50 MCG/ACT eCW1 ([facility]) Flonase Allergy Relief 50 MCG/ACT Flonase Allergy Relief 50 MCG/ACT 05/16/2020 12:00:00 AM EST 1.0 {spray_in_each_nostril} acti ve Flonase Allergy Relief 50 MCG/ACT eCW1 ([facility]) atorvastatin 20 MG Oral Tablet ATORVASTATIN CALCIUM 05/06/2020 1 2:00:00 AM EST tablet 90 TAKE ONE TABLET BY MOUTH EVERY D AY TAKE ONE TABLET BY MOUTH EVERY DAY SOLD: 05/07/2020 [facility] Budesonide 3 MG Delayed Release Oral Cap dulce budesonide (ENTOCORT EC) 3 MG 24 hr capsule budesonide (ENTOCORT EC) 3 MG 24 hr capsule 04/29/2020 12:00 :00 AM EST aborted [facility] 5 mg 04/08/2020 12:00:00 AM EST tablet 90 TAKE ONE TABLET BY MOUTH EVERY DAY TAKE ONE TABLET BY MOUTH EVERY DAY SOLD: 04/11/2020 [facility] 25-100 mg 04/01/2020 12:00:00 AM EST tablet 45 TAKE ONE-HALF TABLET BY MOUTH THREE TIMES A DAY TAKE ONE-HALF TABLET BY MOUTH THREE TIMES A DAY SOLD: 04/02/2020 [facility] Carbidopa 25 MG / Levodopa 100 MG Oral Tablet [Sinemet] Sine met 03/31/2020 12:00:00 AM EST ORAL active M EDENT ([facility]) 8 HR Acetaminophen 650 MG Extended Release Oral Tablet [Tyle nol] Tylenol 8 Hour 02/21/2020 12:00:00 AM EST active MEDENT ([facility]) doxycycline hyclate 100 MG Oral Tablet DOXYCYCLINE HYCLATE 1 04/15/2019 12:00:00 AM EST tablet 20 TAKE ONE TABLET BY MOUTH TWI CE A DAY TAKE ONE TABLET BY MOUTH TWICE A DAY SOLD: 02/14/2020 [facility] doxycycline hyclate 100 MG Oral Tablet Doxycycline Hyc late 100 MG Doxycycline Hyclate 100 MG 02/01/2020 12:00:00 AM EDT 1.0 {tablet} active Doxycycline Hyclate 100 MG eCW1 ([facility]) 12 HR Guaifenesin 600 MG Extended Release Oral Tablet [Mucinex] Mucinex 600 MG Mucinex 600 MG 02/01/2020 12:00:00 AM EDT 1.0 {tablet_as_needed} active Mucinex 600 MG eCW1 ([facility]) 12 HR Guaifenesin 600 MG Extended Release Oral Tablet [Mucinex] Mucinex 600 MG Mucinex 600 MG 02/01/2020 12:00:00 AM EDT 1.0 {tablet_as_needed} active Mucinex 600 MG eCW1 ([facility]) 12 HR Guaifenesin 600 MG Extended Release Oral Tablet [Mucinex] Mucinex 600 MG Mucinex 600 MG 02/01/2020 12:00:00 AM EDT 1.0 {tablet_as_needed} active Mucinex 600 MG eCW1 ([facility]) 12 HR Guaifenesin 600 MG Extended Release Oral Tablet [Mucinex] Mucinex 600 MG Mucinex 600 MG 02/01/2020 12:00:00 AM EDT 1.0 {tablet_as_needed} active Mucinex 600 MG eCW1 ([facility]) 12 HR Guaifenesin 600 MG Extended Release Oral Tablet [Mucinex] Mucinex 600 MG Mucinex 600 MG 02/01/2020 12:00:00 AM EDT 1.0 {tablet_as_needed} active Mucinex 600 MG eCW1 ([facility]) 12 HR Guaifenesin 600 MG Extended Release Oral Tablet [Mucinex] Mucinex 600 MG Mucinex 600 MG 02/01/2020 12:00:00 AM EDT 1.0 {tablet_as_needed} active Mucinex 600 MG eCW1 ([facility]) 12 HR Guaifenesin 600 MG Extended Release Oral Tablet [Mucinex] Mucinex 600 MG Mucinex 600 MG 02/01/2020 12:00:00 AM EDT 1.0 {tablet_as_needed} active Mucinex 600 MG eCW1 ([facility]) 12 HR Guaifenesin 600 MG Extended Release Oral Tablet [Mucinex] Mucinex 600 MG Mucinex 600 MG 02/01/2020 12:00:00 AM EDT 1.0 {tablet_as_needed} active Mucinex 600 MG eCW1 ([facility]) 12 HR Guaifenesin 600 MG Extended Release Oral Tablet [Mucinex] Mucinex 600 MG Mucinex 600 MG 02/01/2020 12:00:00 AM EDT 1.0 {tablet_as_needed} active Mucinex 600 MG eCW1 ([facility]) 12 HR Guaifenesin 600 MG Extended Release Oral Tablet [Mucinex] Mucinex 600 MG Mucinex 600 MG 02/01/2020 12:00:00 AM EDT 1.0 {tablet_as_needed} active Mucinex 600 MG eCW1 ([facility]) 12 HR Guaifenesin 600 MG Extended Release Oral Tablet [Mucinex] Mucinex 600 MG Mucinex 600 MG 02/01/2020 12:00:00 AM EDT 1.0 {tablet_as_needed} active Mucinex 600 MG eCW1 ([facility]) doxycycline hyclate 100 MG Oral Tablet Doxycycline Hyc late 100 MG Doxycycline Hyclate 100 MG 02/01/2020 12:00:00 AM EDT 1.0 {tablet} active Doxycycline Hyclate 100 MG eCW1 ([facility]) 12 HR Guaifenesin 600 MG Extended Release Oral Tablet [Mucinex] Mucinex 600 MG Mucinex 600 MG 02/01/2020 12:00:00 AM EDT 1.0 {tablet_as_needed} active Mucinex 600 MG eCW1 ([facility]) 12 HR Guaifenesin 600 MG Extended Release Oral Tablet [Mucinex] Mucinex 600 MG Mucinex 600 MG 02/01/2020 12:00:00 AM EDT 1.0 {tablet_as_needed} active Mucinex 600 MG eCW1 ([facility]) 12 HR Guaifenesin 600 MG Extended Release Oral Tablet [Mucinex] Mucinex 600 MG Mucinex 600 MG 02/01/2020 12:00:00 AM EDT 1.0 {tablet_as_needed} active Mucinex 600 MG eCW1 ([facility]) 12 HR Guaifenesin 600 MG Extended Release Oral Tablet [Mucinex] Mucinex 600 MG Mucinex 600 MG 02/01/2020 12:00:00 AM EDT 1.0 {tablet_as_needed} active Mucinex 600 MG eCW1 ([facility]) 12 HR Guaifenesin 600 MG Extended Release Oral Tablet [Mucinex] Mucinex 600 MG Mucinex 600 MG 02/01/2020 12:00:00 AM EDT 1.0 {tablet_as_needed} active Mucinex 600 MG eCW1 ([facility]) 12 HR Guaifenesin 600 MG Extended Release Oral Tablet [Mucinex] Mucinex 600 MG Mucinex 600 MG 02/01/2020 12:00:00 AM EDT 1.0 {tablet_as_needed} active Mucinex 600 MG eCW1 ([facility]) 12 HR Guaifenesin 600 MG Extended Release Oral Tablet [Mucinex] Mucinex 600 MG Mucinex 600 MG 02/01/2020 12:00:00 AM EDT 1.0 {tablet_as_needed} active Mucinex 600 MG eCW1 ([facility]) 12 HR Guaifenesin 600 MG Extended Release Oral Tablet [Mucinex] Mucinex 600 MG Mucinex 600 MG 02/01/2020 12:00:00 AM EDT 1.0 {tablet_as_needed} active Mucinex 600 MG eCW1 ([facility]) 12 HR Guaifenesin 600 MG Extended Release Oral Tablet [Mucinex] Mucinex 600 MG Mucinex 600 MG 02/01/2020 12:00:00 AM EDT 1.0 {tablet_as_needed} active Mucinex 600 MG eCW1 ([facility]) 12 HR Guaifenesin 600 MG Extended Release Oral Tablet [Mucinex] Mucinex 600 MG Mucinex 600 MG 02/01/2020 12:00:00 AM EDT 1.0 {tablet_as_needed} active Mucinex 600 MG eCW1 ([facility]) 12 HR Guaifenesin 600 MG Extended Release Oral Tablet [Mucinex] Mucinex 600 MG Mucinex 600 MG 02/01/2020 12:00:00 AM EDT 1.0 {tablet_as_needed} active Mucinex 600 MG eCW1 ([facility]) 12 HR Guaifenesin 600 MG Extended Release Oral Tablet [Mucinex] Mucinex 600 MG Mucinex 600 MG 02/01/2020 12:00:00 AM EDT 1.0 {tablet_as_needed} active Mucinex 600 MG eCW1 ([facility]) 12 HR Guaifenesin 600 MG Extended Release Oral Tablet [Mucinex] Mucinex 600 MG Mucinex 600 MG 02/01/2020 12:00:00 AM EDT 1.0 {tablet_as_needed} active Mucinex 600 MG eCW1 ([facility]) 12 HR Guaifenesin 600 MG Extended Release Oral Tablet [Mucinex] Mucinex 600 MG Mucinex 600 MG 02/01/2020 12:00:00 AM EDT 1.0 {tablet_as_needed} active Mucinex 600 MG eCW1 ([facility]) 12 HR Guaifenesin 600 MG Extended Release Oral Tablet [Mucinex] Mucinex 600 MG Mucinex 600 MG 02/01/2020 12:00:00 AM EDT 1.0 {tablet_as_needed} active Mucinex 600 MG eCW1 ([facility]) 12 HR Guaifenesin 600 MG Extended Release Oral Tablet [Mucinex] Mucinex 600 MG Mucinex 600 MG 02/01/2020 12:00:00 AM EDT 1.0 {tablet_as_needed} active Mucinex 600 MG eCW1 ([facility]) 12 HR Guaifenesin 600 MG Extended Release Oral Tablet [Mucinex] Mucinex 600 MG Mucinex 600 MG 02/01/2020 12:00:00 AM EDT 1.0 {tablet_as_needed} active Mucinex 600 MG eCW1 ([facility]) 12 HR Guaifenesin 600 MG Extended Release Oral Tablet [Mucinex] Mucinex 600 MG Mucinex 600 MG 02/01/2020 12:00:00 AM EDT 1.0 {tablet_as_needed} active Mucinex 600 MG eCW1 ([facility]) 12 HR Guaifenesin 600 MG Extended Release Oral Tablet [Mucinex] Mucinex 600 MG Mucinex 600 MG 02/01/2020 12:00:00 AM EDT 1.0 {tablet_as_needed} active Mucinex 600 MG eCW1 ([facility]) 12 HR Guaifenesin 600 MG Extended Release Oral Tablet [Mucinex] Mucinex 600 MG Mucinex 600 MG 02/01/2020 12:00:00 AM EDT 1.0 {tablet_as_needed} active Mucinex 600 MG eCW1 ([facility]) 12 HR Guaifenesin 600 MG Extended Release Oral Tablet [Mucinex] Mucinex 600 MG Mucinex 600 MG 02/01/2020 12:00:00 AM EDT 1.0 {tablet_as_needed} active Mucinex 600 MG eCW1 ([facility]) 12 HR Guaifenesin 600 MG Extended Release Oral Tablet [Mucinex] Mucinex 600 MG Mucinex 600 MG 02/01/2020 12:00:00 AM EDT 1.0 {tablet_as_needed} active Mucinex 600 MG eCW1 ([facility]) 12 HR Guaifenesin 600 MG Extended Release Oral Tablet [Mucinex] Mucinex 600 MG Mucinex 600 MG 02/01/2020 12:00:00 AM EDT 1.0 {tablet_as_needed} active Mucinex 600 MG eCW1 ([facility]) 12 HR Guaifenesin 600 MG Extended Release Oral Tablet [Mucinex] Mucinex 600 MG Mucinex 600 MG 02/01/2020 12:00:00 AM EDT 1.0 {tablet_as_needed} active Mucinex 600 MG eCW1 ([facility]) 12 HR Guaifenesin 600 MG Extended Release Oral Tablet [Mucinex] Mucinex 600 MG Mucinex 600 MG 02/01/2020 12:00:00 AM EDT 1.0 {tablet_as_needed} active Mucinex 600 MG eCW1 ([facility]) doxycycline hyclate 100 MG Oral Tablet Doxycycline Hyc late 100 MG Doxycycline Hyclate 100 MG 02/01/2020 12:00:00 AM EDT 1.0 {tablet} active Doxycycline Hyclate 100 MG eCW1 ([facility]) 12 HR Guaifenesin 600 MG Extended Release Oral Tablet [Mucinex] Mucinex 600 MG Mucinex 600 MG 02/01/2020 12:00:00 AM EDT 1.0 {tablet_as_needed} active Mucinex 600 MG eCW1 ([facility]) 12 HR Guaifenesin 600 MG Extended Release Oral Tablet [Mucinex] Mucinex 600 MG Mucinex 600 MG 02/01/2020 12:00:00 AM EDT 1.0 {tablet_as_needed} active Mucinex 600 MG eCW1 ([facility]) 12 HR Guaifenesin 600 MG Extended Release Oral Tablet [Mucinex] Mucinex 600 MG Mucinex 600 MG 02/01/2020 12:00:00 AM EDT 1.0 {tablet_as_needed} active Mucinex 600 MG eCW1 ([facility]) doxycycline hyclate 100 MG Oral Tablet DOXYCYCLINE HYCLATE 1 12:00:00 AM EDT tablet 20 TAKE ONE TABLET BY MOUTH TWI CE A DAY TAKE ONE TABLET BY MOUTH TWICE A DAY SOLD: 02/01/2020 [facility] 32 gauge x 5/32" 12/19/2019 12:00:00 AM EDT needle 100 ONE MISCELLANEOUS EVERY DAY ONE MISCELLANEOUS EVERY DAY SOLD: 07/24/2020 [facility] 32 gauge x 5/32" 12/19/2019 12:00:00 AM EDT needle 100 ONE MISCELLANEOUS EVERY DAY ONE MISCELLANEOUS EVERY DAY SOLD: 10/31/2020 [facility] 32 gauge x 5/32" 12/19/2019 12:00:00 AM EDT needle 100 ONE MISCELLANEOUS EVERY DAY ONE MISCELLANEOUS EVERY DAY SOLD: 03/21/2020 [facility] 32 gauge x 5/32" 12/19/2019 12:00:00 AM EDT needle 100 ONE MISCELLANEOUS EVERY DAY ONE MISCELLANEOUS EVERY DAY SOLD: 12/20/2019 [facility] Pen Notus 12/17/2019 12:00:00 AM EDT active MEDENT ([facility]) 40 mg 11/28/2019 12:00:00 AM EDT tablet,delayed release (DR/EC) 90 TAKE ONE TABLET BY MOUTH EVERY DAY TAKE ONE TABLET BY MOUTH EVERY DAY SOLD: 11/29/2019 [facility] pantoprazole 40 MG Delayed Release Oral Tablet PANTOPRAZOLE SODIUM 11/28/2019 12:00:00 AM EDT tablet,delayed release (DR/EC) 90 T JUSTYNA ONE TABLET BY MOUTH EVERY DAY TAKE ONE TABLET BY MOUTH EVERY DAY SOLD: 03/25/2020 [facility] Acetaminophen 300 MG / Codeine Phosphate 30 MG Oral Tablet acetaminophen-codeine (TYLENOL #3) 300-30 MG per tablet acetaminophen-codeine (TYLENOL #3) 300-3 0 MG per tablet 11/22/2019 12:00:00 AM EDT 3 {tbl} Oral aborte d Take 3 tablets by mouth daily Daily [facility] sitagliptin 50 MG Oral Tablet [Januvia] JANUVIA 50 MG tablet JANUVIA 50 MG tablet 09/25/2019 12:00:00 AM EDT 1 {tbl} Oral aborted Take 1 tablet by mouth daily [facility] 5 mg 09/22/2019 12:00:00 AM EDT tablet 90 TAKE ONE TABLET BY MOUTH EVERY DAY TAKE ONE TABLET BY MOUTH EVERY DAY SOLD: 12/29/2019 [facility] atorvastatin 20 MG Oral Tablet ATORVASTATIN CALCIUM 09/22/2019 1 2:00:00 AM EDT tablet 90 TAKE ONE TABLET BY MOUTH EVERY D AY TAKE ONE TABLET BY MOUTH EVERY DAY SOLD: 01/10/2020 [facility] 25 mg 08/21/2019 12:00:00 AM EDT tablet 45 TAKE ONE-HALF TABLET BY MOUTH EVERY DAY WITH FOOD TAKE ONE-HALF TABLET BY MOUTH EVERY DAY WITH FOOD SOLD : 12/01/2019 [facility] 25 mg 08/21/2019 12:00:00 AM EDT tablet 45 TAKE ONE-HALF TABLET BY MOUTH EVERY DAY WITH FOOD TAKE ONE-HALF TABLET BY MOUTH EVERY DAY WITH FOOD SOLD : 07/16/2020 [facility] 50 mg 08/07/2019 12:00:00 AM EDT capsule 180 TAKE TWO CAPSULES BY MOUTH AT BEDTIME NEEDED TAKE TWO CAPSULES BY MOUTH AT BEDTIME NEEDED SOLD: 12/18/2019 [facility] 7 ACTUAT umeclidinium 0.0625 MG/ACTUAT D ry Powder Inhaler [Incruse] INCRUSE ELLIPTA 62.5 MCG/INH AEPB INCRUSE ELLIPTA 62.5 MCG/INH AEPB 07/20/2019 12:00:00 AM EDT aborted [facility] 10 mg 02/20/2019 12:00:00 AM EST tablet 90 TAKE ONE TABLET BY MOUTH EVERY DAY TAKE ONE TABLET BY MOUTH EVERY DAY SOLD: 12/01/2019 [facility] Doxepin Hydrochloride 50 MG Oral Capsule doxepin (SINE KRISTINE) 50 MG capsule doxepin (SINEQUAN) 50 MG capsule 02/03/2019 12:00:00 AM EDT 1 {caps ule} Oral aborted Take 1 capsule by mouth n ightly [facility] repaglinide 1 MG Oral Tablet repaglinide (PRANDIN) 1 M G tablet repaglinide (PRANDIN) 1 MG tablet 11/28/2018 12:00:00 AM EDT 0.5 mg Oral aborted Take 0.5 mg by mouth 3 (three) times a day 2 tablets daily after each meal [facility] Carbidopa 25 MG / Levodopa 100 MG Oral T ablet Carbidopa-Levodopa 25-100 MG Oral Tablet (SINEMET) Carbidopa-Levodopa 25-100 MG Oral Tablet (SINEMET) 0.5 {tbl} Oral aborted Take 0.5 tablets by mout h Three times daily [facility] Doxepin Hydrochloride 50 MG Oral Capsule Doxepin HCl 50 MG Oral Capsule (SINEQUAN) Doxepin HCl 50 MG Oral Capsule (SINEQUAN) 100 mg Ora l aborted Take 100 mg by mouth nightly [facility] atorvastatin 20 MG Oral Tablet Atorvastatin Calcium 20 MG Oral Tablet (LIPITOR) Atorvastatin Calcium 20 MG Oral Tablet (LIPITOR) 20 mg Oral aborted Take 20 mg by mouth daily [facility] Bisoprolol Fumarate 5 MG Oral Tablet Bis oprolol Fumarate 5 MG Oral Tablet (ZEBETA) Bisoprolol Fumarate 5 MG Oral Tablet (ZEBETA) 5 mg O ral aborted Take 5 mg by mouth daily [facility] Amlodipine 10 MG Oral Tablet amLODIPine Besylate 10 MG Oral Tablet (NORVASC) amLODIPine Besylate 10 MG Oral Tablet (NORVASC) 10 mg Oral aborted Take 10 mg by mouth daily [facility] pantoprazole 40 MG Delayed Release Oral Tablet Pantoprazole Sodium 40 MG Oral Tablet Delayed Release (PROTONIX) Pantoprazole Sodium 40 MG Oral Tablet De layed Release (PROTONIX) 40 mg Oral aborted Take 40 mg by mouth daily [facility] Bisoprolol Fumarate 5 MG Oral Tablet bisoprolol (ZEBET A) 5 MG tablet bisoprolol (ZEBETA) 5 MG tablet 5 mg Oral aborted Sukumar e 5 mg by mouth daily [facility] atorvastatin 20 MG Oral Tablet atorvastatin (LIPITOR) 20 MG tablet atorvastatin (LIPITOR) 20 MG tablet 20 mg Oral aborted T justyna 20 mg by mouth daily [facility] Insurance Providers Payer name Policy type / Coverage type Policy ID Covered libertarian ID Covered libertarian's relationship to sun Policy Sun Plan Information [place]IC[place] [id number] S [id number] MEDICARE A [id number] Self [id number] MEDICARE [id number] Nancy [id number] A [place] [id number] S [id number] [place] [id number] S [id number] [place] [id number] S [id number] MEDICARE [id number] MEDICARE [id number] Nancy [id number] [place] BCBS [id number] Spo [id number] [place] [id number] S [id number] EXCELLUS BCBS [id number] [place]CE[place] BCBS [id number] Spo [id number] A [place] MED[place] DIVISION [id number] S [id number] [place] MED[place] DIVISION [id number] S [id number] DME Jurisdiction A [facility] C [id number] SELF [id number] Medicare C [id number] SELF [id number] A [place] MEDICARE DIVISION [id number] S [id number] [place] MED[place]ISION [id number] S [id number] EXCELLUS BCBS [id number] Spo [id number] EXCELLUS C [id number] Spouse [id number] Blue Cross Blue Shield P [id number] SPOUSE [id number] BLUE CARD C [id number] Spouse [id number] [employer] [place] [id number] SPO [id number] [employer] [place] [id number] SPO [id number] BLUE CROSS [id number] [employer] [place] [id number] SPO [id number] MEDICARE A [id number] Self [id number] ANSI-Medicare Part B [id number] ANSI-Commercial [id number] ANSI-Commercial [id number] ANSI-Medicare Part B [id number] ANSI-Commercial [id number] ANSI-Medicare Part B [id number] ANSI-Commercial [id number] ANSI-Medicare Part B [id number] [place] [id number] SPO [id number] [place] [id number] SPO [id number] ANSI-Medicare Part B [id number] ANSI-Commercial [id number] ANSI-Medicare Part B [id number] ANSI-Commercial [id number] ANSI-Medicare Part B [id number] ANSI-Commercial [id number]-[id number] ANSI-Commercial [id number] ANSI-Medicare Part B [id number] ANSI-Medicare Part B [id number] ANSI-Commercial [id number] ANSI-Commercial [id number]-[id number]-w62f-[id number] ANSI-Medicare Part B [id number] ANSI-Commercial [id number] ANSI-Medicare Part B [id number] [facility] [id number] Self [id number] Medicare [place] Medicare Primary [id number] Self [id number] [facility] [id number] [id number] Medicare [place]/[facility] Medicare Primary [id number] Self 1 [id number] [facility] Part B [id number] Family Dependent R [id number] ANSI-Commercial [id number] ANSI-Medicare Part B [id number] ANSI-Commercial [id number] ANSI-Medicare Part B [id number] ANSI-Medicare Part B [id number] ANSI-Commercial [id number]-[id number]-[id number] eoapex85-t78p-85b4-8mlt-[id number] ANSI-Commercial [id number]-ww9o-017m-[id number] ANSI-Medicare Part B [id number] ANSI-Commercial [id number]-[id number] ANSI-Medicare Part B [id number] ANSI-Medicare Part B [id number] ANSI-Commercial [id number] [id number]-[id number] ANSI-Commercial [id number]-[id number]-[id number] ANSI-Medicare Part B [id number] ANSI-Medicare Part B [id number] ANSI-Commercial [id number]-9y4e-79k2-0cmk-[id number]-2b5f-60d1-0znr-[id number] Fed Plan Medigap Part B [id number] Self [id number] Medicare [place] Primary [id number] Self [id number] ANSI-Medicare Part B [id number] ANSI-Commercial [id number]-[id number] [id number]-[id number] [facility] Medigap Part B [id number] 46.4787.0 [id number] ANSI-Medicare Part B [id number] ANSI-Commercial [id number] [id number]-ct3m-[id number] ANSI-Commercial [id number]-[id number] [id number]-[id number] ANSI-Medicare Part B [id number] ANSI-Medicare Part B [id number] ANSI-Commercial [id number]-bk7m-55i6-[id number] do127lt5-cg0c-66t8-[id number] ANSI-Commercial [id number]-[id number] [id number]-[id number] ANSI-Medicare Part B [id number] ANSI-Medicare Part B [id number] ANSI-Commercial [id number]-h8ar-[id number]-c4hj-[id number] [facility] Part B [id number] [id number] ANSI-Commercial [id number]-[id number] ANSI-Medicare Part B [id number] ANSI-Commercial 17955231-e5k7-470l-w76i-h3ipikd76p65 25041690-c8s0-968s-h08v-s8gugbz93q20 ANSI-Medicare Part B [id number]-k3a0-3397-w6m1-r420a7neo7eb 984u5eis-h5z4-4324-r4l2-p528r2ozz1oj [employer] Medigap Part B [id number] 2..0.1.273082.3.227.99.86 46.4787.0 [id number] Medicare [facility] Medicare Primary [id number] 2.16.840.1.801876.3.227.99.8646.4787.0 Self 1 [id number] ANSI-Commercial qr870u46-u980-38ns-zz76-d5u8ah0k2ncf oi771n10-r288-75ow-mk72-a5u6oz9c2ofb ANSI-Medicare Part B [id number] [id number]-03v0-7b1p-[id number] MEDICARE [id number] A ANSI-Commercial [id number]-ti53-326i99te69ud 608d3245-7bw4-9677-yt69-573p20pf34ac ANSI-Medicare Part B [id number]-0010-53lp-s2g33u75i95w 1z612ri7-103d-8696-98xa-n2t73v96r48e ANSI-Commercial e227159x-o465-1d31-kne8-b13et133y6d6 z851250s-k091-8a53-cso7-v62lg235x7g0 ANSI-Medicare Part B [id number]-[id number] z9f95ize-2q12-5f16-j046-8q57y692ra66 ANSI-Commercial 155n706y-7w9s-2w7m-8857-dl3nv182ut0q 312p428x-3u1q-1y9m-5986-un9ii592io3x ANSI-Medicare Part B [id number]-[id number] 2080y228-4kkg-1416-k4ye-651027d58xw5 ANSI-Commercial 356o1l5p-b908-4v9p-v432-d6t862d4809x 852r6w2w-d383-2u5x-a472-t7h348g1922f ANSI-Medicare Part B [id number] 0c4ze9hk-87x0-3042-9k44-o42r35d56948 ANSI-Medicare Part B [id number]-a869-lyt5q0v974v0 k02v175x-1284-3176-m090-qby7v5j186p2 ANSI-Commercial 7068du6j-4e9f-969f-mh87-0x0fg489rom3 2987ac0v-8p5d-659b-fg56-5n2ao841ted4 ANSI-Commercial b9wq9622-120m-3c40-963t-44d65i63131c l1sp6968-949h-7r23-862x-38e42i55255y ANSI-Medicare Part B [id number]-[id number] 4z288b2s-7j72-0b5m-1783-74n46967b09r ANSI-Commercial 619hxa30-4k5f-5524-m8f6-q795756969l9 607wcw59-6r7v-9788-f4x3-b552606645j0 ANSI-Medicare Part B [id number]-hy43-96dy76x8ha3j yy32ix1s-5684-0001-qs34-09ev67p8lf3i Fed Plan Medigap Part B [id number] .1.560523.3.227.99 .991.930402.0 Self [id number] [place] [id number] .1.703221.3.227.99.991.650506.0 Self [id number] MEDICARE [id number] SELF [id number] A [facility] Medigap Part B [id number] 2.0.1.155454.3.227.99.86 46.4787.0 [id number] BS Fed Plan Medigap Part B [id number] 2.0.1.400299.3.227.99 .991.840472.0 Self [id number] [place] Primary [id number] 2.0.1.790968.3.227.99.991.774936.0 Self [id number] [employer] Medigap Part B [id number] 2.0.1.983415.3.227.99.86 46.4787.0 [id number] BS Fed Plan Medigap Part B [id number] 2..1.943702.3.227.99 .991.816466.0 Self [id number] [place] Primary [id number] 2.0.1.011205.3.227.99.991.181647.0 Self [id number] [employer] BC[employer] Medigap Part B [id number] 2.0.1.107297.3.227.99.86 46.4787.0 [id number] Blue [facility] Medigap Part B [id number] 2..1.978596.3.227.99.8646.4787.0 Family Dependent R [id number] [employer] BS FEDERAL [id number] WI2 [id number] [employer] Medigap Part B [id number] 2..1.828178.3.227.99.86 46.4787.0 [id number] MEDICARE [id number] SELF [id number] A BC BS [place] FEDERAL B [id number] P [id number] MEDICARE C [id number] P [id number] A MEDICARE [id number] SP [id number] [employer] Medigap Part B [id number] 2.0.1.327562.3.227.99.86 46.4787.0 [id number] BS Fed Plan Medigap Part B [id number] 2.0.1.340050.3.227.99 .991.358047.0 Self [id number] [place] Primary [id number] 2.16.840.1.674978.3.227.99.991.834044.0 Self [id number] [employer] FEDERAL [id number] WI2 [id number] [employer] Medigap Part B [id number] 2.16.840.1.901401.3.227.99.86 46.4787.0 [id number] [employer] Medigap Part B [id number] Blue [facility] Federal Medigap Part B [id number] Family Dependen t Medicare [facility] Medicare Primary [id number] Self BS Fed Plan Medigap Part B [id number] Self [place] Primary [id number] Self [employer] BCBS FEDERAL [id number] WI2 [id number] [employer] FEDERAL [id number] WI2 [id number] BC BS [place] FEDERAL [id number] WI2 [id number] BC BS [place] FED[place]AL [id number] WI2 [id number] [employer] FEDERAL [id number] WI2 [id number] [facility] FEDERAL EMPLOYEE PROGRAM [id number] WI2 [id number] [facility] FEDERAL EMPLOYEE PROGRAM [id number] WI2 [id number] [facility] FEDERAL EMPLOYEE PROGRAM [id number] WI2 [id number] [facility] FEDERAL EMPLOYEE PROGRAM [id number] WI2 [id number] [facility] [id number] SP [id number] MEDICARE C [id number] S [id number] [facility] O [id number] S [id number] [facility] [id number] S [id number] MEDICARE - [place] [id number] S [id number] BC BS [place] FED[place] B [id number] S [id number] [employer] [employer] [id number] S [id number] MEDICARE [place] [id number] S [id number] [facility] [facility] [place] [id number] SPO [id number] [place] MED[employer]ARE [employer] [id number] S [id number] MEDICARE - [place] [id number] S [id number] ANSI-Commercial [id number] ANSI-Medicare Part B [id number] ANSI-Commercial [id number] ANSI-Medicare Part B [id number] ANSI-Medicare Part B [id number] ANSI-Commercial [id number] ANSI-Commercial [id number] ANSI-Medicare Part B [id number] Fed Plan Medigap Part B [id number] Self [id number] [place] [id number] Self [id number] [facility] Part B [id number] Family Dependent [id number] Medicare [place] Primary [id number] Self [id number] Problems, Conditions, and Diagnoses Code Display Name Description Problem Type Effective Dates Data Source(s) E10.9 Type 1 diabetes mellitus without complic ations TYPE 1 DIABETES MELLITUS WITHOUT COMPLICATIONS Diagnosis 11/04/2020 02:31:00 PM [facility] R55 Syncope and collapse SYNCOPE AND COLLAPSE Diagnosis 11/04/2020 02:31:00 PM [facility] I10 Essential (primary) hypertension ESSENTIAL (PRIMARY) H YPERTENSION Diagnosis 11/04/2020 02:31:00 PM [facility] I71.2 Thoracic aortic aneurysm, without ruptur e THORACIC AORTIC ANEURYSM, WITHOUT RUPTURE Diagnosis 11/04/2020 02:31:00 PM [facility] N18.30 CHRONIC KIDNEY DISEASE, STAGE 3 UNSPECIF IED CHRONIC KIDNEY DISEASE, STAGE 3 UNSPECIFIED Diagnosis 11/04/2020 02:31:00 PM [facility] J44.9 Chronic obstructive pulmonary disease, u nspecified CHRONIC OBSTRUCTIVE PULMONARY DISEASE, UNSPECIFIED Diagnosis 11/04/2020 02:31:00 PM [facility] I73.9 Peripheral vascular disease, unspecified PERIPHERAL VASCULAR DISEASE, UNSPECIFIED Diagnosis 11/04/2020 02:31:00 PM [facility] E78.5 Hyperlipidemia, unspecified HYPERLIPIDEMIA, UNSPECIFIE D Diagnosis 11/04/2020 02:31:00 PM [facility] I42.9 Cardiomyopathy, unspecified CARDIOMYOPATHY, UNSPECIFIE D Diagnosis 11/04/2020 02:31:00 PM [facility] I25.84 Coronary atherosclerosis due to calcifie d coronary lesion CORONARY ATHEROSCLEROSIS DUE TO CALCIFIED CORONARY Diagnosis 11/04/2020 02:31:0 0 PM [facility] I25.10 Atherosclerotic heart diseas e of [place] coronary artery without angina pectoris ATHSCL HEART DISEASE OF [place] CORONARY ARTERY W/O ANG PCTRS Diagnosis 11/04/2020 02:31:00 PM [facility] G45.9 Transient cerebral ischemic attack, unsp ecified Transient cerebral ischemic attack, unspecified Diagnosis 05/31/2020 01:54:00 AM [facility] TIA TIA Diagnosis 05/30/2020 11:05:11 PM [facility] Z79.51 USP (current) use of inhaled stero ids SENIOR LIVING (CURRENT) USE OF INHALED STEROIDS Diagnosis 05/30/2020 10:40:00 PM [facility] Z79.899 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 O THER SENIOR LIVING (CURRENT) DRUG THERAPY Diagnosis 05/30/2020 10:40:00 PM [facility] Z79.82 termite exterminator (current) use of aspirin DRUG COUNSELOR (CU RRENT) USE OF ASPIRIN Diagnosis 05/30/2020 10:40:00 PM [facility] Z87.891 Personal history of nicotine dependence PERSONAL HISTORY OF NICOTINE DEPENDENCE Diagnosis 05/30/2020 10:40:00 PM [facility] Z95.5 Presence of coronary angioplasty implant and graft PRESENCE OF CORONARY ANGIOPLASTY IMPLANT AND GRAFT Diagnosis 05/30/2020 10:40:00 PM [facility] Z20.822 CONTACT WITH AND (SUSPECTED) EXPOSURE TO COVID-19 CONTACT WITH AND (SUSPECTED) EXPOSURE TO COVID-19 Diagnosis 05/30/2020 10:40:00 PM [facility] I13.0 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 failure and stage 1 through stage 4 chronic kidney disease, or unspecified chronic kidney disease HYP HRT CHR KDNY DIS W HRT FAIL AND STG 1-4/UNSP Diagnosis 05/30/2020 10:40:00 PM [facility] I50.9 Heart failure, unspecified HEART FAILURE, UNSPECIFIED Diagnosis 05/30/2020 10:40:00 PM [facility] E11.9 Type 2 diabetes mellitus without complic ations TYPE 2 DIABETES MELLITUS WITHOUT COMPLICATIONS Diagnosis 05/30/2020 10:40:00 PM [facility] G45.9 Transient cerebral ischemic attack, unsp ecified TRANSIENT CEREBRAL ISCHEMIC ATTACK, UNSPECIFIED Diagnosis 05/30/2020 10:40:00 PM [facility] R41.82 Altered mental status, unspecified ALTERED MENTA L STATUS, UNSPECIFIED Diagnosis 05/30/2020 10:40:00 PM [facility] I10 Essential (primary) hypertension Essential (primary) h ypertension Diagnosis 03/04/2020 02:16:50 PM [facility] I71.2 Thoracic aortic aneurysm, without ruptur e Thoracic aortic aneurysm, without ruptur Diagnosis 03/04/2020 02:16:50 PM [facility] I25.84 Coronary atherosclerosis due to calcifie d coronary lesion Coronary atherosclerosis due to calcifie Diagnosis 03/04/2020 02:16:[address] [facility] I25.10 Atherosclerotic heart diseas e of [place] coronary artery without angina pectoris Atherosclerotic heart disease of [place] Diagnosis 03/04/2020 02:16:50 PM [facility] I42.9 Cardiomyopathy, unspecified Cardiomyopathy, unspecifie d Diagnosis 03/04/2020 02:16:50 PM [facility] E10.9 Type 1 diabetes mellitus without complic ations Type 1 diabetes mellitus without complic Diagnosis 02/19/2020 08:00:31 AM [facility] R55 Syncope and collapse Syncope and collapse Diagnosis 02/19/2020 08:00:31 AM [facility] N18.30 Chronic kidney disease, stage 3 unspecif ied Chronic kidney disease, stage 3 unspecif Diagnosis 02/19/2020 08:00:31 AM [facility] J44.9 Chronic obstructive pulmonary disease, u nspecified Chronic obstructive pulmonary disease, u Diagnosis 02/19/2020 08:00:31 AM [facility] I73.9 Peripheral vascular disease, unspecified Peripheral vascular disease, unspecified Diagnosis 02/19/2020 08:00:31 AM [facility] E78.5 Hyperlipidemia, unspecified Hyperlipidemia, unspecifie d Diagnosis 02/19/2020 08:00:31 AM [facility] Z87.310 Personal history of (healed) osteoporosi s fracture PERSONAL HISTORY OF (HEALED) OSTEOPOROSI Diagnosis 12/18/2019 01:00:00 PM [facility] M81.0 Age-related osteoporosis without current pathological fracture AGE-RELATED OSTEOPOROSIS W/O CURRENT PATHOLOGICAL FRACTURE Diagnosis 2019 01:00:00 PM EDT [facility] N18.3 Chronic kidney disease, stage 3 (moderat e) CHRONIC KIDNEY DISEASE, STAGE 3 (MODERATE) Diagnosis 12/04/2019 08:54:00 AM EDT [facility] N18.3 Chronic kidney disease, stage 3 (moderat e) Chronic kidney disease, stage 3 (moderat Diagnosis 12/04/2019 07:22:20 AM EDT [facility] B37.0 [id number] Thrush Problem 12/19/2020 12:00:00 AM ED T eCW1 ([facility]) C44.41 [id number] Basal cell carcinoma of left side of neck Problem 12/03/2020 12:00:00 AM EDT eCW1 ([facility]) C44.319 [id number] Basal cell carcinoma of right preauricula r region Problem 11/27/2020 12:00:00 AM EDT eCW1 ([facility]) C44.212 124534045 Basal cell carcinoma of right postauricul ar region Problem 11/27/2020 12:00:00 AM EDT eCW1 ([facility]) M48.062 [id number] Spinal stenosis of lumbar region with neurogenic claudication Problem 10/15/2020 12:00:00 AM EDT eCW1 ([facility]) N20.0 [id number] Renal calculus, bilateral Problem 09/23/2020 12:00:00 AM EDT eCW1 ([facility]) R39.12 [id number] Poor urinary stream Problem 09/23/2020 12:00 :00 AM EDT eCW1 ([facility]) N28.1 [id number] Renal cysts, acquired, bilateral Problem 09/23/2020 12:00:00 AM EDT eCW1 ([facility]) I50.20 HFrEF (heart failure with reduced ejecti on fraction) HFrEF (heart failure with reduced ejection fraction) [id number] 07/18/2020 12:00:00 AM EDT [facility] N40.1 [id number] Benign prostatic hyp erplasia with lower urinary tract symptoms Problem 06/23/2020 12:00:00 AM EDT eCW1 ([facility]) F02.80 [id number] Dementia in other di seases classified elsewhere without behavioral disturbance Problem 06/19/2020 12:00:00 AM EDT eCW1 ([facility]) Z79.4 [id number] Long-term insulin use Problem 06/19/2020 12: 00:00 AM EDT eCW1 ([facility]) N18.9 Chronic kidney disease Chronic kidney disease [id number] 06/02/2020 12:00:00 AM EST [facility] J44.9 COPD (chronic obstructive pulmonary dise ase) COPD (chronic obstructive pulmonary disease) [id number] 06/02/2020 12:00:00 AM EST [facility] I25.10 Atherosclerosis of coronary artery Atheroscleros is of coronary artery [id number] 06/02/2020 12:00:[address] [facility] [id number] Pain in lower limb Pain in lower limb Problem 12:00:00 AM EST [facility] ([facility]) [id number] Lumbosacral radiculopathy Lumbosacral radiculopathy Pr oblem 02/21/2020 12:00:00 AM EST [facility] ([facility]) 056110545 Chronic low back pain Chronic low back pain Problem 02/21/2020 12:00:00 AM EST [facility] ([facility]) S61.402D [id number] Unspecified open wou nd of left hand, subsequent encounter Problem 01/15/2020 12:00:00 AM EDT eCW1 ([facility]) S81.002D [id number] Unspecified open wou nd, left knee, subsequent encounter Problem 01/15/2020 12:00:00 AM EDT eCW1 ([facility]) S51.802D [id number] Unspecified open wou nd of left forearm, subsequent encounter Problem 01/02/2020 12:00:00 AM EDT eCW1 ([facility]) S61.201D [id number] Unspecified open wou nd of left index finger without damage to nail, subsequent encounter Problem 01/02/2020 12:00:00 AM EDT eCW1 ([facility]) S81.801D [id number] Unspecified open wou nd, right lower leg, subsequent encounter Problem 01/02/2020 12:00:00 AM EDT eCW1 ([facility]) S81.001D [id number] Unspecified open wou nd, right knee, subsequent encounter Problem 01/02/2020 12:00:00 AM EDT eCW1 ([facility]) S51.001D [id number] Unspecified open wou nd of right elbow, subsequent encounter Problem 01/02/2020 12:00:00 AM EDT eCW1 ([facility]) S41.102D [id number] Unspecified open wou nd of left upper arm, subsequent encounter Problem 01/02/2020 12:00:00 AM EDT eCW1 ([facility]) S51.801D [id number] Unspecified open wou nd of right forearm, subsequent encounter Problem 01/02/2020 12:00:00 AM EDT eCW1 ([facility]) S51.002D [id number] Unspecified open wou nd of left elbow, subsequent encounter Problem 01/02/2020 12:00:00 AM EDT eCW1 ([facility]) Surgeries/Procedures Procedure Description Date Indications Data Source(s) OFFICE OUTPATIENT VISIT 25 MINUTES 01/15/2021 12:00:00 AM EDT [facility] ([facility]) Spirometry 12/31/2020 12:00:00 AM EDT M EDENT ([facility] ) OFFICE OUTPATIENT VISIT 25 MINUTES 12/31/2020 12:00:00 AM EDT [facility] ([facility], ) OFFICE OUTPATIENT VISIT 25 MINUTES 12/22/2020 12:00:00 AM EDT [facility] ([facility]) Suture Removal 12/10/2020 12:00:00 AM EDT eCW1 ([facility]) Diabetic Foot Exam 12/04/2020 12:00:00 AM EDT [facility] ([facility] ) Suture Removal 12/03/2020 12:00:00 AM EDT eCW1 ([facility]) Med: Derm Lidocaine with Epinephrine Inj ection 1% with 2 ml sodium bicarbonate Intradermally to marked areas 12/03/2020 12:00:00 AM EDT eCW1 ([facility]) Med: Derm Lidocaine with Epinephrine Inj ection 1% with 2 ml sodium bicarbonate Intradermally to marked areas 11/27/2020 12:00:00 AM EDT eCW1 ([facility]) OFFICE OUTPATIENT VISIT 15 MINUTES 11/06/2020 12:00:00 AM EDT [facility] ([facility] ) DESTRUCTION PREMALIGNANT LESION 1ST 10/01/2020 12:00:0 0 AM EDT [facility] ([facility]) DESTRUCTION PREMALIGNANT LESION 2-14 EA 10/01/2020 12: 00:00 AM EDT [facility] ([facility]) Shave Biopsy Of Skin, Single Lesion 09/09/2020 12:00:0 0 AM EDT [facility] ([facility]) Each Separate/Additional Lesion 09/09/2020 12:00:00 AM EDT [facility] ([facility]) OFFICE OUTPATIENT VISIT 25 MINUTES 09/09/2020 12:00:00 AM EDT [facility] ([facility]) OFFICE OUTPATIENT VISIT 25 MINUTES 09/02/2020 12:00:00 AM EDT [facility] ([facility] OFFICE OUTPATIENT VISIT 25 MINUTES 08/25/2020 12:00:00 AM EDT [facility] ([facility]) Spirometry 06/24/2020 12:00:00 AM EDT M EDCRAIG ([facility] ) OFFICE OUTPATIENT VISIT 25 MINUTES 06/24/2020 12:00:00 AM EDT [facility] ([facility] ) POCT GLUCOSE, DOCKED <td>POCT GLUCOSE, DOCKED</td ><td>Routine</td><td>06/05/2020 8:13 AM EST</td><td></td><td> </td> 06/05/2020 08:13:00 AM [facility] BLOOD COUNT COMPLETE AUTO&AUTO DIFRNTL WBC COUNT <td>C BC AND DIFFERENTIAL</td><td>Routine</td><td>06/05/2020 4:59 AM EST</td><td></td><td> </td> 06/05/2020 04:59:00 AM [facility] GLUCOSE QUANTITATIVE BLOOD XCPT REAGENT STRIP <td>POCT GLUCOSE, DOCKED</td><td>Routine</td><td>06/04/2020 9:02 PM EST</td><td></td><td> </td> 06/04/2020 09:02:00 PM [facility] URNLS DIP STICK/TABLET REAGENT AUTO MICROSCOPY <td>URI NALYSIS WITH MICROSCOPIC</td><td>Routine</td><td>06/04/2020 5:53 PM EST</td><td></td><td> </td> 06/04/2020 05:53:00 PM [facility] GLUCOSE QUANTITATIVE BLOOD XCPT REAGENT STRIP <td>POCT GLUCOSE, DOCKED</td><td>Routine</td><td>06/04/2020 5:12 PM EST</td><td></td><td> </td> 06/04/2020 05:12:00 PM [facility] AMMONIA <td>AMMONIA LEVEL</td><td>Ro utine</td><td>06/04/2020 12:10 PM EST</td><td></td><td> </td> 06/04/2020 12:10:00 PM [facility] HEPATIC FUNCTION PANEL <td>HEPATIC FUNCTION PANEL A</td><td>Routine</td><td>06/04/2020 12:10 PM EST</td><td></td><td> </td> 06/04/2020 12:10:00 PM [facility] BASIC METABOLIC PANEL CALCIUM TOTAL <td>BASIC METABOLI C PANEL</td><td>Routine</td><td>06/04/2020 12:10 PM EST</td><td></td><td> </td> 06/04/2020 12:10:00 PM [facility] GLUCOSE QUANTITATIVE BLOOD XCPT REAGENT STRIP <td>POCT GLUCOSE, DOCKED</td><td>Routine</td><td>06/04/2020 12:01 PM EST</td><td></td><td> </td> 06/04/2020 12:01:00 PM [facility] GLUCOSE QUANTITATIVE BLOOD XCPT REAGENT STRIP <td>POCT GLUCOSE, DOCKED</td><td>Routine</td><td>06/04/2020 8:04 AM EST</td><td></td><td> </td> 06/04/2020 08:04:00 AM [facility] MRI BRAIN BRAIN STEM W/O CONTRAST MATERIAL <td>MR BRAI N WITHOUT CONTRAST [id number]</td><td>Pending Discharge</td><td>06/04/2020 5:20 AM EST</td><td></td><td></td> 06/04/2020 05:20:41 AM EST [facility] BLOOD COUNT COMPLETE AUTO&AUTO DIFRNTL WBC COUNT <td>C BC AND DIFFERENTIAL</td><td>Routine</td><td>06/04/2020 4:42 AM EST</td><td></td><td> </td> 06/04/2020 04:42:00 AM [facility] GLUCOSE QUANTITATIVE BLOOD XCPT REAGENT STRIP <td>POCT GLUCOSE, DOCKED</td><td>Routine</td><td>06/03/2020 9:01 PM EST</td><td></td><td> </td> 06/03/2020 09:01:00 PM [facility] EEG ROUTINE STUDY <td>EEG ROUTINE STUDY</td><t d>Routine</td><td>06/03/2020 5:11 PM EST</td><td></td><td> </td> 06/03/2020 05:11:04 PM [facility] GLUCOSE QUANTITATIVE BLOOD XCPT REAGENT STRIP <td>POCT GLUCOSE, DOCKED</td><td>Routine</td><td>06/03/2020 4:34 PM EST</td><td></td><td> </td> 06/03/2020 04:34:00 PM [facility] BASIC METABOLIC PANEL CALCIUM TOTAL <td>BASIC METABOLI C PANEL</td><td>STAT</td><td>06/03/2020 2:17 PM EST</td><td></td><td> </td> 06/03/2020 02:17:00 PM [facility] GLUCOSE QUANTITATIVE BLOOD XCPT REAGENT STRIP <td>POCT GLUCOSE, DOCKED</td><td>Routine</td><td>06/03/2020 2:16 PM EST</td><td></td><td> </td> 06/03/2020 02:16:00 PM [facility] GLUCOSE QUANTITATIVE BLOOD XCPT REAGENT STRIP <td>POCT GLUCOSE, DOCKED</td><td>Routine</td><td>06/03/2020 1:42 PM EST</td><td></td><td> </td> 06/03/2020 01:42:00 PM [facility] GLUCOSE QUANTITATIVE BLOOD XCPT REAGENT STRIP <td>POCT GLUCOSE, DOCKED</td><td>Routine</td><td>06/03/2020 11:31 AM EST</td><td></td><td> </td> 06/03/2020 11:31:00 AM [facility] RESPIRATORY PATHOGEN PANEL <td>RESPIRATORY PATHOGEN PANEL</td><td>Routine</td><td>06/03/2020 10:39 AM EST</td><td></td><td> </td> 06/03/2020 10:39:00 AM [facility] COVID-19 PCR <td>COVID-19 PCR</td><td>Rou alejadnro</td><td>06/03/2020 10:39 AM EST</td><td></td><td> </td> 06/03/2020 10:39:00 AM [facility] ECHOCARDIOGRAM COMPLETE WITH BUBBLE STUDY <td>ECHOCARD IOGRAM COMPLETE WITH BUBBLE STUDY</td><td>Routine</td><td>06/03/2020 10:07 AM EST</td><td></td><td> </td> 06/03/2020 10:07:25 AM [facility] GLUCOSE QUANTITATIVE BLOOD XCPT REAGENT STRIP <td>POCT GLUCOSE, DOCKED</td><td>Routine</td><td>06/03/2020 7:44 AM EST</td><td></td><td> </td> 06/03/2020 07:44:00 AM [facility] BLOOD COUNT COMPLETE AUTO&AUTO DIFRNTL WBC COUNT <td>C BC AND DIFFERENTIAL</td><td>Routine</td><td>06/03/2020 1:44 AM EST</td><td></td><td> </td> 06/03/2020 01:44:00 AM [facility] GLUCOSE QUANTITATIVE BLOOD XCPT REAGENT STRIP <td>POCT GLUCOSE, DOCKED</td><td>Routine</td><td>06/02/2020 10:32 PM EST</td><td></td><td> </td> 06/02/2020 10:32:00 PM [facility] GLUCOSE QUANTITATIVE BLOOD XCPT REAGENT STRIP <td>POCT GLUCOSE, DOCKED</td><td>Routine</td><td>06/02/2020 4:56 PM EST</td><td></td><td> </td> 06/02/2020 04:56:00 PM [facility] GLUCOSE QUANTITATIVE BLOOD XCPT REAGENT STRIP <td>POCT GLUCOSE, DOCKED</td><td>Routine</td><td>06/02/2020 12:11 PM EST</td><td></td><td> </td> 06/02/2020 12:11:00 PM [facility] GLUCOSE QUANTITATIVE BLOOD XCPT REAGENT STRIP <td>POCT GLUCOSE, DOCKED</td><td>Routine</td><td>06/02/2020 8:31 AM EST</td><td></td><td> </td> 06/02/2020 08:31:00 AM [facility] BLOOD COUNT COMPLETE AUTO&AUTO DIFRNTL WBC COUNT <td>C BC AND DIFFERENTIAL</td><td>Routine</td><td>06/02/2020 6:32 AM EST</td><td></td><td> </td> 06/02/2020 06:32:00 AM [facility] GLUCOSE QUANTITATIVE BLOOD XCPT REAGENT STRIP <td>POCT GLUCOSE, DOCKED</td><td>Routine</td><td>06/01/2020 9:28 PM EST</td><td></td><td> </td> 06/01/2020 09:28:00 PM [facility] GLUCOSE QUANTITATIVE BLOOD XCPT REAGENT STRIP <td>POCT GLUCOSE, DOCKED</td><td>Routine</td><td>06/01/2020 4:36 PM EST</td><td></td><td> </td> 06/01/2020 04:36:00 PM [facility] GLUCOSE QUANTITATIVE BLOOD XCPT REAGENT STRIP <td>POCT GLUCOSE, DOCKED</td><td>Routine</td><td>06/01/2020 12:04 PM EST</td><td></td><td> </td> 06/01/2020 12:04:00 PM [facility] GLUCOSE QUANTITATIVE BLOOD XCPT REAGENT STRIP <td>POCT GLUCOSE, DOCKED</td><td>Routine</td><td>06/01/2020 8:20 AM EST</td><td></td><td> </td> 06/01/2020 08:20:00 AM [facility] BLOOD COUNT COMPLETE AUTO&AUTO DIFRNTL WBC COUNT <td>C BC AND DIFFERENTIAL</td><td>Routine</td><td>06/01/2020 6:23 AM EST</td><td></td><td> </td> 06/01/2020 06:23:00 AM [facility] BASIC METABOLIC PANEL CALCIUM TOTAL <td>BASIC METABOLI C PANEL</td><td>Routine</td><td>06/01/2020 6:23 AM EST</td><td></td><td> </td> 06/01/2020 06:23:00 AM [facility] GLUCOSE QUANTITATIVE BLOOD XCPT REAGENT STRIP <td>POCT GLUCOSE, DOCKED</td><td>Routine</td><td>05/31/2020 9:25 PM EST</td><td></td><td> </td> 05/31/2020 09:25:00 PM [facility] GLUCOSE QUANTITATIVE BLOOD XCPT REAGENT STRIP <td>POCT GLUCOSE, DOCKED</td><td>Routine</td><td>05/31/2020 5:09 PM EST</td><td></td><td> </td> 05/31/2020 05:09:00 PM [facility] GLUCOSE QUANTITATIVE BLOOD XCPT REAGENT STRIP <td>POCT GLUCOSE, DOCKED</td><td>Routine</td><td>05/31/2020 1:10 PM EST</td><td></td><td> </td> 05/31/2020 01:10:00 PM [facility] MRA NECK W/O CONTRST MATERIAL <td>MR ANGIOGRAPHY NECK WITHOUT CONTRAST [id number]</td><td>STAT</td><td>05/31/2020 12:36 PM EST</td><td></td><td> </td> 05/31/2020 12:36:00 PM [facility] MRA HEAD W/O CONTRST MATERIAL <td>MR ANGIOGRAPHY HEAD WITHOUT CONTRAST [id number]</td><td>Routine</td><td>05/31/2020 12:36 PM EST</td><td></td><td> </td> 05/31/2020 12:36:00 PM [facility] MRI BRAIN BRAIN STEM W/O CONTRAST MATERIAL <td>MR BRAI N WITHOUT CONTRAST [id number]</td><td>Pending Discharge</td><td>05/31/2020 12:36 PM EST</td><td></td><td> </td> 05/31/2020 12:36:00 PM [facility] GLUCOSE QUANTITATIVE BLOOD XCPT REAGENT STRIP <td>POCT GLUCOSE, DOCKED</td><td>Routine</td><td>05/31/2020 8:05 AM EST</td><td></td><td> </td> 05/31/2020 08:05:00 AM [facility] PLATELET AGGREGATION IN VITRO EACH AGENT <td>VERIFYNOW ASPIRIN</td><td>Routine</td><td>05/31/2020 6:34 AM EST</td><td></td><td> </td> 05/31/2020 06:34:00 AM [facility] PROTHROMBIN TIME <td>PROTIME INR</td><td>Rout ine</td><td>05/31/2020 3:37 AM EST</td><td></td><td> </td> 05/31/2020 03:37:00 AM [facility] BLOOD COUNT COMPLETE AUTO&AUTO DIFRNTL WBC COUNT <td>C BC AND DIFFERENTIAL</td><td>Routine</td><td>05/31/2020 3:37 AM EST</td><td></td><td> </td> 05/31/2020 03:37:00 AM [facility] THYROID STIMULATING HORMONE TSH <td>TSH</td><td>Routin e</td><td>05/31/2020 3:37 AM EST</td><td></td><td> </td> 05/31/2020 03:37:00 AM [facility] HEMOGLOBIN GLYCOSYLATED A1C <td>HEMOGLOBIN A1C</td><td>Routine</td><td>05/31/2020 3:37 AM EST</td><td></td><td> </td> 05/31/2020 03:37:00 AM [facility] LIPID PANEL <td>LIPID PANEL</td><td>Rout ine</td><td>05/31/2020 3:37 AM EST</td><td></td><td> </td> 05/31/2020 03:37:00 AM [facility] COMPREHENSIVE METABOLIC PANEL <td>COMPREHENSIVE METABO LIC PANEL</td><td>Routine</td><td>05/31/2020 3:37 AM EST</td><td></td><td> </td> 05/31/2020 03:37:00 AM [facility] GLUCOSE QUANTITATIVE BLOOD XCPT REAGENT STRIP <td>POCT GLUCOSE, DOCKED</td><td>Routine</td><td>05/31/2020 2:21 AM EST</td><td></td><td> </td> 05/31/2020 02:21:00 AM [facility] EEG Complete STD Phys/QHP>60 HR<84 HR W/O Video 2019 12:00:00 AM EST [facility] ([facility], ) EEG Complete STD Phys/QHP>60 HR<84 HR W/O Video 2019 12:00:00 AM EST [facility] ([facility], ) FINE NEEDLE ASPIRATION W/O IMAGING GUIDANCE 03/06/2020 12:00:00 AM EST [email or web address] ([facility]) Needle electromyography, each extremity, with related paraspinal areas, when performed, done with nerve conduction, amplitude and latency/velocity study; complete, five or more muscles studied, innervated by three or more nerves or four or more spinal levels (list separately in addition to the code for primary procedure). 02/21/2020 12:00:00 AM EST MEDEN T ([facility], ) Needle electromyography, each extremity, with related paraspinal areas, when performed, done with nerve conduction, amplitude and latency/velocity study; complete, five or more muscles studied, innervated by three or more nerves or four or more spinal levels (list separately in addition to the code for primary procedure). 02/21/2020 12:00:00 AM EST MEDEN T ([facility], ) [id number] Nerve conduction studies 13 or more studies NEW 201202/21/2020 12:00:00 AM EST MEDENT ([facility], ) FINE NEEDLE ASPIRATION W/O IMAGING GUIDANCE 02/21/2020 12:00:00 AM EST eCW1 ([facility]) FINE NEEDLE ASPIRATION W/O IMAGING GUIDANCE 02/14/2020 12:00:00 AM EST eCW1 ([facility]) TSTG ANS FUNCJ CARDIOVAGAL INNERVAJ PARASYMP 0 12:00:00 AM EST MEDENT ([facility], ) TSTG ANS FUNCJ CARDIOVAGAL INNERVAJ PARASYMP 0 12:00:00 AM EST MEDENT ([facility], ) TESTING AUTONOMIC NERVOUS SYSTEM FUNCTION 02/13/2020 1 2:00:00 AM EST MEDENT ([facility], ) TESTING AUTONOMIC NERVOUS SYSTEM FUNCTION 02/13/2020 1 2:00:00 AM EST [facility] FINE NEEDLE ASPIRATION W/O IMAGING GUIDANCE 01/31/2020 12:00:00 AM EDT eCW1 ([facility]) FINE NEEDLE ASPIRATION W/O IMAGING GUIDANCE 01/17/2020 12:00:00 AM EDT eCW1 ([facility]) Immunization: Flublok Quadrivalent (18 years & older) 0.5mL IM (Influenza) 01/11/2020 12:00:00 AM EDT eCW1 ([facility]) FINE NEEDLE ASPIRATION W/O IMAGING GUIDANCE 01/03/2020 12:00:00 AM EDT eCW1 ([facility]) Spirometry 12/24/2019 12:00:00 AM EDT M EDENT ([facility]) Results ID Date Data Source [id number] 12/31/2020 01:16:00 PM EDT MEDENT ([facility], ) Name Value Range Interpretation Code Description Data Beth rce(s) Supporting Document(s) PDFReport Laboratory test result MEDENT ([facility], ) FVC-Pred 3.90 L MEDENT ([facility], ) FVC-LLN 2.97 L MEDENT ([facility]) FVC-Pre 3.45 L MEDENT ([facility]) FVC-%Pred-Pre 88 L MEDENT ([facility], ) Fev1-Pre 1.96 L MEDENT ([facility]) Fev1-%Pred-Pre 71 L MEDENT ([facility], ) Fev1-Pred 2.74 L MEDENT ([facility], ) Fev1-LLN 1.95 L MEDENT ([facility]) Fev6-Pred 3.62 L MEDENT ([facility]) Fev6-Pre 3.42 L MEDENT ([facility]) Kcx0zqy-Vkra 71 % MEDENT ([facility]) Fev6-LLN 2.72 L MEDENT ([facility]) Fev6-%Pred-Pre 94 L MEDENT ([facility]) Jiw9umq-%Pred-Pre 79 % MEDENT ([facility]) Fdm6irk-Ffu 57 % MEDENT ([facility]) Ccf1cax-FAV 61 % MEDENT ([facility]) Gtu1lgv-Oib 99 % MEDENT ([facility]) Iyb6cvp-Wmww 93 % MEDENT ([facility]) FEFMax-Pred 6.85 L/E/sec MEDENT ([facility]) FEFMax-Pre 4.57 L/E/sec MEDENT ([facility]) Pok0izl-%Pred-Pre 106 % MEDENT ([facility]) FEFMax-LLN 4.52 L/E/sec MEDENT ([facility]) [id number]-Dfxi 1.83 L/E/sec MEDENT ([facility]) FEFMax-%Pred-Pre 66 L/E/sec MEDENT ([facility]) Vzq2505-Xhh 0.94 L/E/sec MEDENT ([facility]) Isq9792-%Pred-Pre 51 L/E/sec MEDENT ([facility]) ExpTime-Pre 6.61 sec MEDENT ([facility]) Fjl6374-GKT 0.22 L/E/sec MEDENT ([facility]) Rta0hid6-%Pred-Pre 75 % MEDENT ([facility], ) Ybp3cjb6-Tzya 76 % MEDENT ([facility]) Pgf8ckd8-Xmt 57 % MEDENT ([facility]) Itu2acr4-YQU 67 % MEDENT ([facility]) ID Date Data Source [id number] 12/22/2020 01:47:00 PM EDT MEDENT ([facility]) Name Value Range Interpretation Code Description Data Beth rce(s) Supporting Document(s) Glucose [Mass/volume] in Serum or Plasma 213 MEDENT ([facility]) Hemoglobin A1c/Hemoglobin.total in Blood 6.2 MEDENT ([facility]) ID Date Data Source [id number] 09/09/2020 01:10:00 PM EDT MEDENT ([facility]) Name Value Range Interpretation Code Description Data Beth rce(s) Supporting Document(s) Laboratory test finding (navigational concept) Laboratory test result MEDENT ([facility]) A. Refer to Dr. Feng for Mohs B. Re leon to Dr. Feng for Mohs C. Refer to Dr. Feng for Mohs D. Refer to Dr. Feng for Mohs letter awaiting signature LW 09/18/20 photos emailed, letter sent, awaiting appt LW 09/22/20 letter redone and sent to Dr Solorzano Appointment for 10/15/20 and 10/22/20 Jose aware per Gary all 4 sites have been treated and he will send notes LW 12/10/20 Laboratory test finding (navigational concept) Laboratory test result MEDENT ([facility]) A. Refer to Dr. Feng for Mohs B. Re leon to Dr. Feng for Mohs C. Refer to Dr. Feng for Mohs D. Refer to Dr. Feng for Mohs letter awaiting signature LW 09/18/20 photos emailed, letter sent, awaiting appt LW 09/22/20 letter redone and sent to Dr Solorzano Appointment for 10/15/20 and 10/22/20 Jose aware per Gary all 4 sites have been treated and he will send notes LW 12/10/20 ID Date Data Source [id number] 08/25/2020 01:36:00 PM EDT MEDENT ([facility]) Name Value Range Interpretation Code Description Data Beth rce(s) Supporting Document(s) Glucose [Mass/volume] in Serum or Plasma 207 MEDENT ([facility]) Hemoglobin A1c/Hemoglobin.total in Blood 6.8 MEDENT ([facility]) ID Date Data Source [id number] 06/24/2020 02:39:00 PM EDT MEDENT ([facility]) Name Value Range Interpretation Code Description Data Beth rce(s) Supporting Document(s) PDFReport Laboratory test result MEDENT ([facility], ) FVC-Pre 2.90 L MEDENT ([facility]) FVC-Pred 3.94 L MEDENT ([facility]) FVC-%Pred-Pre 73 L MEDENT ([facility]) FVC-LLN 3.01 L MEDENT ([facility]) Fev1-Pred 2.79 L MEDENT ([facility]) Fev1-Pre 1.69 L MEDENT ([facility]) Fev1-%Pred-Pre 60 L MEDENT ([facility]) Fev1-LLN 2.00 L MEDENT ([facility]) Fev6-Pred 3.67 L MEDENT ([facility]) Fev6-Pre 2.90 L MEDENT ([facility]) Fev6-LLN 2.76 L MEDENT ([facility]) Fev6-%Pred-Pre 78 L MEDENT ([facility]) Pkx3oie-Tmf 58 % MEDENT ([facility]) Ooc0pou-Iqit 71 % MEDENT ([facility]) Odz3vhd-GPU 61 % MEDENT ([facility]) Uuw6fam-%Pred-Pre 81 % MEDENT ([facility]) Hna4szv-Qdpw 93 % MEDENT ([facility]) Jli7qhw-%Pred-Pre 107 % MEDENT ([facility]) Myo2jxp-Dhz 100 % MEDENT ([facility]) FEFMax-Pred 6.98 L/E/sec MEDENT ([facility]) FEFMax-Pre 3.94 L/E/sec MEDENT ([facility]) FEFMax-LLN 4.66 L/E/sec MEDENT ([facility]) FEFMax-%Pred-Pre 56 L/E/sec MEDENT ([facility]) Ykn3237-Jgwk 1.88 L/E/sec MEDENT ([facility]) Psg1457-Snf 0.89 L/E/sec MEDENT ([facility]) ExpTime-Pre 5.39 sec MEDENT ([facility]) Wmt7758-AAM 0.27 L/E/sec MEDENT ([facility]) Hft6364-%Pred-Pre 47 L/E/sec MEDENT ([facility]) Uaq6tci0-Zsca 76 % MEDENT ([facility]) Ljr0gyr4-Fez 58 % MEDENT ([facility]) Fnp9vlc4-JBU 67 % MEDENT ([facility]) Hgx2ave0-%Pred-Pre 76 % MEDENT ([facility]) ID Date Data Source [id number] 06/20/2020 01:15:58 PM EDT [facility] Name Value Range Interpretation Code Description Data Beth [facility](s) Supporting Document(s) Discharge Summary [facility] LNLPTb3kHtSUBbZi92/ECUqkSOKsu9EjSVukEIm0HUabMUFsK2ImOHK1eH1vOKB3JSvOBwAyDeQkFsH1 lbm [file] ICAgICAgICAgICAgICAgICAgICAgICAgICAgICAgICAgICAgICAgICAgICAgICAgICAgICAgICAgICAg ICAgICAgICAgICAgICAgDQogICAgICAgICAgICAgIC AgICAgICAgICAgICAgICAgICAgICAgICAgICAgICAgICAgICAgICAgICAgICAgICAgICAgICAgICAgIC AgICAgICAgICAgICAgICAgICAgICAgICAgDQogICAgICAgICAgICAgICAgICAgICAgICAgICAgICAgIC AgICAgICAgICAgICAgICAgICAgICAgICAgICAgICAg ICAgICAgICAgICAgICAgICAgICAgICAgICAgICAgICAgICAgDQogICAgICAgICAgICAgICAgICAgICAg ICAgICAgICAgICAgICAgICAgICAgICAgICAgICAgICAgICAgICAgICAgICAgICAgICAgICAgICAgICAg ICAgICAgICAgICAgICAgICAgDQogICAgICAgICAgIC AgICAgICAgICAgICAgICAgICAgICAgICAgICAgICAgICAgICAgICAgICAgICAgICAgICAgICAgICAgIC AgICAgICAgICAgICAgICAgICAgICAgICAgICAgDQogICAgICAgICAgICAgICAgICAgICAgICAgICAgIC AgICAgICAgICAgICAgICAgICAgICAgICAgICAgICAg ICAgICAgICAgICAgICAgICAgICAgICAgICAgICAgICAgICAgICAgDQogICAgICAgICAgICAgICAgICAg ICAgICAgICAgICAgICAgICAgICAgICAgICAgICAgICAgICAgICAgICAgICAgICAgICAgICAgICAgICAg ICAgICAgICAgICAgICAgICAgICAgDQogICAgICAgIC AgICAgICAgICAgICAgICAgICAgICAgICAgICAgICAgICAgICAgICAgICAgICAgICAgICAgICAgICAgIC AgICAgICAgICAgICAgICAgICAgICAgICAgICAgICAgDQogICAgICAgICAgICAgICAgICAgICAgICAgIC AgICAgICAgICAgICAgICAgICAgICAgICAgICAgICAg ICAgICAgICAgICAgICAgICAgICAgICAgICAgICAgICAgICAgICAgICAgDQogICAgICAgICAgICAgICAg ICAgICAgICAgICAgICAgICAgICAgICAgICAgICAgICAgICAgICAgICAgICAgICAgICAgICAgICAgICAg UAXlNJCuBILrCJOvMWMqFCOzMGIjWMKcCGv7Z8epSE DuCHLtXR1lLTr8Il6+DUuBAcCkCPW8tiXapR1AAK6iw5PjABzaHYRyd4UhBFh1ZX2CFLFyIPtiEP8TZQ hmzn8RXUWeIZVkyDTIf8cjDfFbZIE8LZYpItfvUR1JFXLvC1tagsGhKGGgKJIGNLaeESFMNDjdOWFQQT OnBUOmNuDdXlXwVZVlRSZiLLYKJJ1ABdQjY2MapY50 IDYNCj4+FLdrtkPeHgrGTmInINFwu3MyNCy9DD8CKLIkGrbdi2ZyTnZnNLNIQWhhVK8SNCM9XVXlESGy Um8MWDMeG572ayXqTO2UUb9IBwVfKJ0zex4VFpLbZIBgEatGTch0OFptLO1JqLYvLPwKhRMveMXiI5Ra L2VnfRXfqKRryFTLrQDamEFbrMKtMBEPs1RlnMFevr cxSaGoLYIlMg91UjNvUmTjKUz3ZgYnXC3rOBdvCM9YMFK5DNdxLGFmVSXjF2gJDrNyIGYvMhPslOlzJD 8XTkCoE4TfdzTueINyVPUdBQCVLz2+NRaqskYcZnoCQmWyZBDps8LqXXc1BH5FOLYvREvsGD6KLEScmD 0nOXofDZ0VCsKsWVGcWYPDSmFgO11sgHTuUDx2Z5Jt YmVkZGVkRmlsZXMgPDwvTmFtZXMgWyBdDQogID4+ID4+PJztDG0JTTrqymPlUYYtXs2TECGrHLJzFG6r KYZnCDTbK3I6dTljPLUJYkFqI5glqdllZU2cENRcA879vAknsyUfWYKgDOTjAl7AMCZdXXS7UPLbpWGp LkrxFGACUDysFF1ZaUPhDLK3uM2gRFblSADtRUXlZ2 zYJiPzyVocJL88xHgirhOwjZPvMPa+Pv9QVB8be3ZyUSp8irQvWQekYIZeRHvcNNBpBYOlMFJgGPP8AL V2ZDAUChObZAJjLZBnYXbrFZPwUNMose5FSPQrQJMbNCizDMWqCXElTFSiVAppBNBlDPT6ZCK4CZDpSO PqXS5XSqJhHLSrIUHfKLklMFEqBZJxhf3QKZRvXHHb ArQkVJOhCZTxHIPtLFbjRFJeVIYoFLC8QBYaGHStRM8FGfIcWISeWMq6WxMcHUZlVUJazi3IIXRdPDXz SwddRPOjOVYgDMRsCHjdXGZkAQJgNUG7HUNkTPAzND9AMfBwMVAqVJRmPthwQXTmHOTqpb4NVTHkUYQz HFXwQxVbTQMcOZSeEOpiMYNpCDP7BFCnLUIbYZSuQY 0CHzKyPCRxBAz4PQKsSVHoHEOwdu9TMHNaKIYvSey9GkMyPZAxPLUqYFtzWTZyTNJxXFgdRGShZPVbCO 4HAwEeEBTuYpXqKIyiMYQtOFBqzp2DXYQxWHWlMEZ4ZCPqEFAfHFVcXIrwEPJsCJWvWKF4SBWlFGApEI 5XQkYxYULiVfY4ImqwXGEtOSBfwy0NXNLrXKRaPiE2 ZDIjVEGnMPCoDVgkIMHbOLVoQVIaBSDkKCCaIO4EXuLtMTQfYyM8RKzeBOFoAHCwiq0KXJMqPPVzIvh4 FvMePAIvFVNpMTnkGETpSTP6NLU4FJSjWWMwBD7DYlEsJYTbZzXbVteeLIKvYBEtcn5TIDAlFEWtMZZ2 AkSmIMInDPKeFCbsHUYlQLA0LKl2NTEfYROlIH1BJh AfYVPtQdK9QaleZAHbIFFkts8TKKRhTKMfMpGeCNWwSQWpEVTmECdkTHWjOLE5PGy5ZDGdTUPeXB7ZBj TwHOOpQkp9XkKgGRBkRJNwnz1UPGKxEXQlGyjsUhGoLIYjUNFrYMy4utUyjFCiNFx0IF6TG8TxudEdVx DVNu0Fe420ISVgGBAnTg2MT9lxOq9dLZXuUYDZBj2I NEx2BEE3FpYyZUXhHEi1LmghWNGkWOw8AGCdKxJlUAJvGWZ+MVe6XsSfWZE8P3QgHMj7D1JmDaK4Aavb CsIuOvK4YtN4Ok9gDPVLAe0+VUqvhIDjtCxaGKXOWiC8SAHeKZaxJUWFLd6F ID Date Data Source [id number] 06/05/2020 06:42:57 PM [facility] MR BRAIN WITHOUT CONTRAST [id number] ULTInterpreted by:Dong Cullen MD06/04/2020 5:20 AMMR BRAIN WITHOUT CONTRAST [id number] CLINICAL INFORMATION: left facial droopMR IMAGING OF THE BRAIN WITHOUT CONTRASTPROCEDURE: MR images were acquired using multiple sequences in multiple planes.COMPARISON: MRA brain dated 05/31/2020FINDINGS: CEREBRAL PARENCHYMA: No evidence of acute infarct, hemorrhage, or intracranial mass. No abnormal signal in the brain parenchyma. Good smith-white matter differentiation. Midline structures including corpus callosum and cerebellar tonsils are normal. There is periventricular white matter changes, which is nonspecific and likely result of small vessels ischemic disease. Mild diffuse cerebral atrophy.VENTRICLES AND EXTRA-AXIAL SPACES: The ventricles, sulci and fissures are normal in size and configuration for the patient's age. No extra-axial fluid collection is present.CALVARIUM AND VISUALIZED SKULL BASE: Intact.. Normal flow voids in the major vessels including the venous sinuses.The visualized paranasal sinuses are clear. The mastoid air cells are clear. The orbits are normal.IMPRESSION: No evidence of acute infarction or acute intracranial disease process.END OF IMPRESSIONThis document has been electronically signed by Baldev Connelly MD on 06/05/2020 6:40 PM Name Value Range Interpretation Code Description Data Beth rce(s) Supporting Document(s) ID Date Data Source [id number] 06/05/2020 08:45:28 AM [facility] Name Value Range Interpretation Code Description Data Beth rce(s) Supporting Document(s) Glucose [Mass/volume] in Capillary blood by Glucometer 120 mg/dL 70- 140 [facility] ID Date Data Source [id number] 06/05/2020 05:54:34 AM EST [facility] Name Value Range Interpretation Code Description Data Beth rce(s) Supporting Document(s) Leukocytes [#/volume] in Blood by Automated count 7.7 10*3/uL 4-10 [facility] Erythrocytes [#/volume] in Blood by Automated count 3.86 10*6/uL 4.6- 6.1 L [facility] Hemoglobin [Mass/volume] in Blood 12.8 g/dL 13.5-18 L [facility] Hematocrit [Volume Fraction] of Blood by Automated count 36.6 % 4 1-53 L [facility] Erythrocyte mean corpuscular volume [Entitic volume] by Auto mated count 94.9 fL 80-96 [facility] Erythrocyte mean corpuscular hemoglobin [Entitic mass] by Automated count 33.1 pg 27-33 H [facility] Erythrocyte mean corpuscular hemoglobin concentration [Mass/volume] by Automated count 34.9 g/dL 32.0-36.0 [facility] width [Ratio] by Automated count 15.0 % 11.5-14.5 H [facility] Platelets [#/volume] in Blood by Automated count 183 10*3/uL 150-400 [facility] Differential cell count method - Blood [facility] Neutrophils/100 leukocytes in Blood by Automated count 72 % [facility] Lymphocytes/100 leukocytes in Blood by Automated count 15 % [facility] Monocytes/100 leukocytes in Blood by Automated count 11 % [facility] Eosinophils/100 leukocytes in Blood by Automated count 2 % [facility] Basophils/100 leukocytes in Blood by Automated count 0 % [facility] Neutrophils [#/volume] in Blood by Automated count 5.51 10*3/uL 1.8-7 .0 [facility] Lymphocytes [#/volume] in Blood by Automated count 1.15 10*3/uL 1.2-4 .0 L [facility] Monocytes [#/volume] in Blood by Automated count 0.87 10*3/uL 0-0.8 H [facility] Eosinophils [#/volume] in Blood by Automated count 0.18 10*3/uL 0-0.5 [facility] Basophils [#/volume] in Blood by Automated count 0.03 10*3/uL 0-0.2 [facility] Nucleated erythrocytes/100 leukocytes [Ratio] in Blood by Automated count 0 /100{WBCs} 0-0 [facility] ID Date Data Source [id number] 06/04/2020 09:12:21 PM [facility] Name Value Range Interpretation Code Description Data Beth rce(s) Supporting Document(s) Glucose [Mass/volume] in Capillary blood by Glucometer 187 mg/dL 70- 140 H [facility] ID Date Data Source [id number] 06/04/2020 06:23:58 PM [facility] Value Range Interpretation Code Description Data Beth rce(s) Supporting Document(s) Color of Urine [facility] Clarity of Urine [facility] Specific gravity of Urine by Refractometry automated 1.012 1.003 -1.030 [facility] pH of Urine by Automated test strip 6.0 5.0-8.0 [facility] Protein [Mass/volume] in Urine by Automated test strip Neg [facility] Glucose [Mass/volume] in Urine by Automated test strip Neg [facility] Ketones [Mass/volume] in Urine by Automated test strip Neg [facility] Bilirubin.total [Presence] in Urine by Automated test strip Negative [facility] Hemoglobin [Presence] in Urine by Automated test strip Neg [facility] Leukocyte esterase [Presence] in Urine by Automated test strip Negative [facility] Nitrite [Presence] in Urine by Automated test strip Negati [facility] Leukocytes [#/area] in Urine sediment by Automated count 1 /HPF 0 -5 [facility] Erythrocytes [#/area] in Urine sediment by Automated count 0 /HPF 0-3 [facility] Mucus [#/area] in Urine sediment by Microscopy low power field None A [facility] ID Date Data Source [id number] 06/04/2020 05:15:16 PM [facility] Value Range Interpretation Code Description Data Beth rce(s) Supporting Document(s) Glucose [Mass/volume] in Capillary blood by Glucometer 120 mg/dL 70- 140 [facility] ID Date Data Source [id number] 06/04/2020 01:24:06 PM [facility] Value Range Interpretation Code Description Data Beth rce(s) Supporting Document(s) Albumin [Mass/volume] in Serum or Plasma by Bromocresol green (BCG) dye binding method 3.7 g/dL 3.5-5.2 [facility] Bilirubin.total [Mass/volume] in Serum or Plasma 1.7 mg/dL <1.2 H [facility] Bilirubin.direct [Mass/volume] in Serum or Plasma 0.3 mg/dL <0.3 H [facility] Alkaline phosphatase [Enzymatic activity/volume] in Serum or Plasma 71 U/L 40-129 [facility] Aspartate aminotransferase [Enzymatic activity/volume] in Serum or Plasma 28 U/L <40 [facility] Alanine aminotransferase [Enzymatic activity/volume] in Seru m or Plasma 8 U/L <41 [facility] Protein [Mass/volume] in Serum or Plasma 5.8 g/dL 6.4-8.3 L [facility] ID Date Data Source [id number] 06/04/2020 01:24:06 PM [facility] Name Value Range Interpretation Code Description Data Beth rce(s) Supporting Document(s) Bicarbonate [Moles/volume] in Serum 24 mmol/L 22-29 [facility] Chloride [Moles/volume] in Serum or Plasma 101 mmol/L 98-107 [facility] Creatinine [Mass/volume] in Serum or Plasma 1.48 mg/dL 0.70-1.20 H [facility] Glucose [Mass/volume] in Serum or Plasma 131 mg/dL 70-140 [facility] Potassium [Moles/volume] in Serum or Plasma 3.9 mmol/L 3.4-5.1 [facility] Sodium [Moles/volume] in Serum or Plasma 135 mmol/L 136-145 L [facility] Urea nitrogen [Mass/volume] in Serum or Plasma 21 mg/dL 8-23 [facility] Anion gap 3 in Serum or Plasma 10 mmol/L 8-15 [facility] Osmolality of Serum or Plasma by calculation 285 mosm/kg 275-300 [facility] Creatinine/Urea nitrogen [Mass Ratio] in Serum or Plasma 14 [facility] Calcium [Mass/volume] in Serum or Plasma 9.6 mg/dL 8.8-10.2 [facility] Glomerular filtration rate/1.73 sq M pre dicted among non-blacks [Volume Rate/Area] in Serum or Plasma by Creatinine-based formula (MDRD) >6 0 [facility] Glomerular filtration rate/1.73 sq M pre dicted among blacks [Volume Rate/Area] in Serum or Plasma by Creatinine-based formula (MDRD) >60 [facility] ID Date Data Source [id number] 06/04/2020 01:11:16 PM [facility] Name Value Range Interpretation Code Description Data Beth rce(s) Supporting Document(s) Ammonia [Moles/volume] in Plasma 16-60 L [facility] ID Date Data Source [id number] 06/04/2020 12:11:51 PM [facility] Value Range Interpretation Code Description Data Beth rce(s) Supporting Document(s) Glucose [Mass/volume] in Capillary blood by Glucometer 128 mg/dL 70- 140 [facility] ID Date Data Source [id number] 06/04/2020 08:08:59 AM [facility] Value Range Interpretation Code Description Data Beth rce(s) Supporting Document(s) Glucose [Mass/volume] in Capillary blood by Glucometer 131 mg/dL 70- 140 [facility] ID Date Data Source [id number] 06/04/2020 05:45:42 AM [facility] Value Range Interpretation Code Description Data Beth rce(s) Supporting Document(s) Leukocytes [#/volume] in Blood by Automated count 8.5 10*3/uL 4-10 [facility] Erythrocytes [#/volume] in Blood by Automated count 4.11 10*6/uL 4.6- 6.1 L [facility] Hemoglobin [Mass/volume] in Blood 13.3 g/dL 13.5-18 L [facility] Hematocrit [Volume Fraction] of Blood by Automated count 39.2 % 4 1-53 L [facility] Erythrocyte mean corpuscular volume [Entitic volume] by Auto mated count 95.2 fL 80-96 [facility] Erythrocyte mean corpuscular hemoglobin [Entitic mass] by Automated count 32.4 pg 27-33 [facility] Erythrocyte mean corpuscular hemoglobin concentration [Mass/volume] by Automated count 34.1 g/dL 32.0-36.0 [facility] E[facility] distribution width [Ratio] by Automated count 14.9 % 11.5-14.5 H [facility] Platelets [#/volume] in Blood by Automated count 177 10*3/uL 150-400 [facility] Differential cell count method - Blood [facility] Neutrophils/100 leukocytes in Blood by Automated count 70 % [facility] Lymphocytes/100 leukocytes in Blood by Automated count 16 % [facility] Monocytes/100 leukocytes in Blood by Automated count 12 % [facility] Eosinophils/100 leukocytes in Blood by Automated count 2 % [facility] Basophils/100 leukocytes in Blood by Automated count 0 % [facility] Neutrophils [#/volume] in Blood by Automated count 5.95 10*3/uL 1.8-7 .0 [facility] Lymphocytes [#/volume] in Blood by Automated count 1.34 10*3/uL 1.2-4 .0 [facility] Monocytes [#/volume] in Blood by Automated count 1.00 10*3/uL 0-0.8 H [facility] Eosinophils [#/volume] in Blood by Automated count 0.15 10*3/uL 0-0.5 [facility] Basophils [#/volume] in Blood by Automated count 0.03 10*3/uL 0-0.2 [facility] Nucleated erythrocytes/100 leukocytes [Ratio] in Blood by Automated count 0 /100{WBCs} 0-0 [facility] ID Date Data Source [id number] 06/03/2020 09:17:18 PM [facility] Value Range Interpretation Code Description Data Beth rce(s) Supporting Document(s) Glucose [Mass/volume] in Capillary blood by Glucometer 213 mg/dL 70- 140 H [facility] ID Date Data Source [id number] 06/03/2020 04:36:06 PM [facility] Value Range Interpretation Code Description Data Ebth rce(s) Supporting Document(s) Glucose [Mass/volume] in Capillary blood by Glucometer 98 mg/dL 70- 140 [facility] ID Date Data Source [id number] 06/03/2020 03:10:10 PM [facility] Value Range Interpretation Code Description Data Beth rce(s) Supporting Document(s) Bicarbonate [Moles/volume] in Serum 25 mmol/L 22-29 [facility] Chloride [Moles/volume] in Serum or Plasma 99 mmol/L 98-107 [facility] Creatinine [Mass/volume] in Serum or Plasma 1.63 mg/dL 0.70-1.20 H [facility] Glucose [Mass/volume] in Serum or Plasma 108 mg/dL 70-140 [facility] Potassium [Moles/volume] in Serum or Plasma 3.6 mmol/L 3.4-5.1 [facility] Sodium [Moles/volume] in Serum or Plasma 135 mmol/L 136-145 L [facility] Urea nitrogen [Mass/volume] in Serum or Plasma 23 mg/dL 8-23 [facility] Anion gap 3 in Serum or Plasma 11 mmol/L 8-15 [facility] Osmolality of Serum or Plasma by calculation 284 mosm/kg 275-300 [facility] Creatinine/Urea nitrogen [Mass Ratio] in Serum or Plasma 14 [facility] Calcium [Mass/volume] in Serum or Plasma 10.0 mg/dL 8.8-10.2 [facility] Glomerular filtration rate/1.73 sq M pre dicted among non-blacks [Volume Rate/Area] in Serum or Plasma by Creatinine-based formula (MDRD) >6 0 [facility] Glomerular filtration rate/1.73 sq M pre dicted among blacks [Volume Rate/Area] in Serum or Plasma by Creatinine-based formula (MDRD) >60 [facility] ID Date Data Source [id number] 06/03/2020 04:36:06 PM [facility] Name Value Range Interpretation Code Description Data Beth rce(s) Supporting Document(s) Glucose [Mass/volume] in Capillary blood by Glucometer 84 mg/dL 70- 140 [facility] ID Date Data Source [id number] 06/03/2020 01:45:38 PM [facility] Value Range Interpretation Code Description Data Beth rce(s) Supporting Document(s) Glucose [Mass/volume] in Capillary blood by Glucometer 183 mg/dL 70- 140 H [facility] ID Date Data Source [id number] 06/03/2020 11:33:17 AM [facility] Value Range Interpretation Code Description Data Beth rce(s) Supporting Document(s) Glucose [Mass/volume] in Capillary blood by Glucometer 249 mg/dL 70- 140 H [facility] ID Date Data Source [id number] 06/03/2020 10:39:00 AM EST [facility] Name Value Range Interpretation Code Description Data Beth rce(s) Supporting Document(s) SARS-CoV-2 RNA 2019 nCoV Real-Time RT-PCR: NOT DETECTED [place] This lab was ordered by [facility] and reported by [facility]. ID Date Data Source [id number] 06/03/2020 11:56:44 AM EST [facility] Service Cmnt XXX-Imp : NoneRespiratory P CR Panel : PCR ResultsMicroorganism XXX Cult : See Labs Tab for 2019 nCoV RT-PCR resultsHAdV DNA QI RATNA+non-probe : Not DetectedHCoV 229ERNA Nph QI RATNA+non-probe : Not DetectedHCoV [id number] Nph QI RATNA+non-probe : Not HirdkpknCGrOWZ20 RNA Nph QI RATNA+non-probe : Not WnvroeymKHlCKH32 RNA Upper resp QI RATNA+probe : Not DetectedhMPV RNA Nph QINAA+non-probe : Not DetectedRV+EV RNA Nph QI RATNA+non-probe : Not DetectedFLUAV RNA Nph QI RATNA+ non-probe : Not DetectedFLUBV RNA Nph QI RATNA+non-probe : Not DetectedHPIV1 RNA NphQINAA+non-probe : Not DetectedHPIV2 RNA Nph QINAA+non-probe : Not DetectedHPVI3 RNA Nph RATNA+non-probe : Not DetectedHPIV4 RNA Nph Q RATNA+non-probe : Not DetectedRSV RNA Nph Q RATNA+non-probe : Not DetectedB pert.PT PrmtNph Q RATNA+non-probe : Not DetectedC pneum DNA Nph Q RATNA+non-probe : Not DetectedM pneum DNA Nph Q RATNA+non-probe : Not DetectedB edhjlZV435 DNA Nph RATNA+non-probe : Not Detected Name Value Range Interpretation Code Description Data Beth rce(s) Supporting Document(s) ID Date Data Source [id number] 06/03/2020 11:56:03 AM [facility] Name Value Range Interpretation Code Description Data Beth rce(s) Supporting Document(s) Specimen source [Identifier] of Unspecified specimen [facility] SARS-CoV-2 RNA 2019 nCoV Real-Time RT-PCR: NOT DETECTED [facility] Assay Performed [facility] Patients first test for [facility] Patient employed in healthcare setting [facility] Patient has symptoms related to [facility] When did you start to experience these symptoms [Date and time] [Phen X] [facility] Patient was hospitalized because of this condition [facility] patient was admitted to ICU for [facility] Patient resides in a congregate care setting [facility] status [facility] ID Date Data Source [id number] 06/03/2020 07:46:30 AM [facility] Name Value Range Interpretation Code Description Data Beth rce(s) Supporting Document(s) Glucose [Mass/volume] in Capillary blood by Glucometer 122 mg/dL 70- 140 [facility] ID Date Data Source [id number] 06/03/2020 01:59:57 AM [facility] Name Value Range Interpretation Code Description Data Beth rce(s) Supporting Document(s) Leukocytes [#/volume] in Blood by Automated count 8.2 10*3/uL 4-10 [facility] Erythrocytes [#/volume] in Blood by Automated count 4.24 10*6/uL 4.6- 6.1 [facility] Hemoglobin [Mass/volume] in Blood 13.5 g/dL 13.5-18 [facility] Hematocrit [Volume Fraction] of Blood by Automated count 40.4 % 4 1-53 L [facility] Erythrocyte mean corpuscular volume [Entitic volume] by Auto mated count 95.4 fL 80-96 [facility] Erythrocyte mean corpuscular hemoglobin [Entitic mass] by Automated count 32.0 pg 27-33 [facility] Erythrocyte mean corpuscular hemoglobin concentration [Mass/volume] by Automated count 33.5 g/dL 32.0-36.0 [facility] width [Ratio] by Automated count 15.2 % 11.5-14.5 H [facility] Platelets [#/volume] in Blood by Automated count 175 10*3/uL 150-400 [facility] Differential cell count method - Blood [facility] Neutrophils/100 leukocytes in Blood by Automated count 73 % [facility] Lymphocytes/100 leukocytes in Blood by Automated count 13 % [facility] Monocytes/100 leukocytes in Blood by Automated count 11 % [facility] Eosinophils/100 leukocytes in Blood by Automated count 2 % [facility] Basophils/100 leukocytes in Blood by Automated count 1 % [facility] Neutrophils [#/volume] in Blood by Automated count 6.13 10*3/uL 1.8-7 .0 [facility] Lymphocytes [#/volume] in Blood by Automated count 1.06 10*3/uL 1.2-4 .0 [facility] Monocytes [#/volume] in Blood by Automated count 0.86 10*3/uL 0-0.8 H [facility] Eosinophils [#/volume] in Blood by Automated count 0.12 10*3/uL 0-0.5 [facility] Basophils [#/volume] in Blood by Automated count 0.07 10*3/uL 0-0.2 [facility] Nucleated erythrocytes/100 leukocytes [Ratio] in Blood by Automated count 0 /100{WBCs} 0-0 [facility] ID Date Data Source [id number] 06/02/2020 10:34:11 PM [facility] Name Value Range Interpretation Code Description Data Beth rce(s) Supporting Document(s) Glucose [Mass/volume] in Capillary blood by Glucometer 192 mg/dL 70- 140 H [facility] ID Date Data Source [id number] 06/02/2020 05:01:33 PM [facility] Name Value Range Interpretation Code Description Data Beth rce(s) Supporting Document(s) Glucose [Mass/volume] in Capillary blood by Glucometer 111 mg/dL 70- 140 [facility] ID Date Data Source [id number] 06/02/2020 04:28:47 PM [facility] Name Value Range Interpretation Code Description Data Beth rce(s) Supporting Document(s) [facility] RHKLEm6kFlJWZqKf59/IASkdLCGwr8UfCPowEJv9GGsbDWDkV0JqNCB2dA3mRAK2YCoZHzKkFdIbZyFk lbm [file] Battery Charger Tester/7Chk/xZvjQrIKiB6pITmRzkJ81W68xNds6Y/MRextCqa8t2HdVRa5G1YABv+OTlMecsQI3Q29zBI YFvDtW6th9OBApd7YUEHzA6IH9kYz6Vh6LmzUY0FrA Mf339HsIk8IURe1TLimQ9sLc1G/hnIeKUtvptW23lM4aFxeH41pfN2mM4oEUS5YDtDCqVE+9+ghRYJHX or3NSkNmpET/gr3qi9EyZgXvn6GmdWzhEtVvCTvIya4HH6qqWO8hYcwTgqSMf21tu8JhmPPYIYzDcYAE LsRD/nhPjt/Cmup0tA9zOHjHrNvgnE4EJ1z1uE+Marques [file] SOTeU9NG91o567KS4Pj+xDDVQ9J+UTILITY WORKER DRIVER+h6Y3fGTAQU qgAZKmVYgKnPaSG7MrZieT71oE5tz3PD4zVixOAKujUu6sQqLcnlarRnkNGwv/FMrXy/FOrF5jtL6gzT WvT3RMXVFgC0LXGph4uApMBYTA+Ay9myFk29F1NkUQO/BMyTGYFeNm6kTOci1+Dt6p9DKgv+t0ZyyCR9 J1ZTqB/Ok8Gs5jYzArw7YTVS6iEV8Oc1SPVrrnYBwy QDu+5ywEylS1jMC2wJ2huAswJ8CiPzUvKbie1/AUUXv79hzZn+WqaTvkuy8BfGPVVHM4LpDn6KKGTHOH AAoWtJmQq1BUBtheL1/DcOLBLWY4SVJjEsdn/aR+p7XWqkRKqaOKNgfWDCeoDe4029fjsEuEp0l+stfA BJcGo0H0D7lJEa73YP5199gbHStGEAttj63tRgnunt Ae2CJHZAMtgsK7LDhnT2A5evl/EoJBDAbWNpnRB731vaIsFXDmUClqKkE3UchRvkT7Wpulu0gP/AjUFO rgy07TsFQc5x//YGCdL8cHWDJPGm+tCq99iKEnbQHahVOcLVpdsZqcyJ62BMQHnTmQfgorcpC3hKbblh 8f00j4cp8k63QaH0/g87DL1s/o8Ag6fI7q2BeWH/Ya Um2iL6PaFXgN4DicYKfa+O79I12AJX6La1zewQOpY1QceUabpCbRdsqESKuoBSjdkKHLGdwVUuLEMNOD KOU7CFWjJTzjggwDlFtS+8VSP/oQtScQOOY4Xwf33s4k0eW1OsacqrkGVEMGNtSSruJJB3kXopK5OWjY VENPSYfbXSrfF3loUR8O80AqKwI0VkmVSutbnDmoAE wpXbtq6F7Qh6ZJFB0FWUdT+Vupi7EgoWvaFLInahnQJ7B8NLx/UsF+TzfD01WhlgsJze6ZoEUIY+9vtA csdJJiuDgwjuPQJCiuAlP7NQkU/md5sXzoaK+sClLeJAJRtbW754Wf1ygVsusiOpCruMIijH9KT/vDhS T48V4JsRCMa3uCwclBILae3hMf7qJcMa5zG4B7flgQ VcV5wSt85aTbHax/RcjEfO06LNsiWJ4Y0wc23SUfcyEx2ORtMtXw8UP5BpuDnZEvmmO4rCya7dbpoo1h LDMYNXhYHwXcYVA5LztKFJRMtUCwy29ASRJzGEuY1meh+DqLTJqGWa5lohIrfF8LAofrzBc07avOaIno +ZXrhXuCzK8CksPHOpztHgk/wBgWe3XT5e83YvmR+k xBI681tU1tpHOSRd0m94/z6xiXrlJmNmg6iISoSV1YJe0d4FBKPYMxxwQf8HPhuSCNO+FgGh4tHYCchi S9Xd1X7Ga/zSLtINnVFKQP8anqeQjYSCDP+3tkoG3P9T/Marika/h6LNA+V8OgqsWm2/xqav8jA0M1VJps [file] vp foundation+Xm2EVs4B21eQbcPuATPt4UL0CqZpdLMVTdKI5itMNPGIDHd7u5VeZfIH821M5BK75KkVXLAblkeca [file] LIZLR[facility]2B ID Date Data Source [id number] 06/02/2020 02:40:11 PM [facility] Name Value Range Interpretation Code Description Data Beth rce(s) Supporting Document(s) Consultation [facility] KXUFOo3wGfLQCzJo24/FTAtcIZYcj5MhEBgmCAp5YQzcOLMiH1HoPWI3yX4kICM8PQtMUqOhEhBjImGb lbm UbAyoNPzVqFKDcQppSJpGjXJdfCivzcMSyLM9DlAQ7QOThO71eNKAaUQWpE5XdTPAuBjJ+Mk1RIVIumV JzTO4SOzcI8B5ex1r3LU7uEG1ROfzDwR53DoYwBvhoY3gL4veYHQwBTwkhP4haM7SvVIpLatixSdSXEF fSkDMV6Wk8gh2rPTG2ZCyvMJj1ACU/lmU5EZG8l5N/ a80SsNg1Uf49R6Vwfiuq7QfoNYx8sQwqRmbD+KRA8o2fNVHUxm8mgFFCbsp1WEWig1htW8IN1YIbOScQ 1jFpS1CLQQDkSd1rONqKKJ+8Qndy8rxriLu/HJSkRc2sRd3Vkhv+J6gnfAnhQhfBH9UiCfItTk3STp3b Uv2Lt6X9wyI1CQ7QPXaY3ATOzcm4kOEeZhKePj3b5r s3DiiMZL0/Rp8O3ZNfgjnOqTu1kSwAaAd0ztV1NlXJhRj7KhM0DeEw6CsCZjgTvqocPq/YPasCA6YwFu C7gA7zPFpgBQCXhJjoo1KjGml9hh6WOcNAfsego/sZ6yF5PljVzabRcrnvm7PcZVo8DVrhlidfNDeYOG DOUGLAS+vk/YAFPkP1mcWg5iQj/uTBhcoR6pyY16rF6P8g VIplobTmdnVBQ3yrFnSgpQ69R0CpWbtrxgSxjBf4fdphMoVZ+OAME+LXurnLkdHCBcjFHPrbu3JoNz5i dk7O+3cfcnWY3tRNO+h5niRZIw+S3KwDkYfapuyeA+Y0rUejwXwzsACYfr1L8qVkc4wwMLp3HdM+UgvI +bbmeezerKQLDewbDnJQqqFVTfooqesCPtbhjiZ9NI [file] AgICAgICAgICAgICAgICAgICAgICAgICAgICAgICAgICAgICAgICAgICAgICAgICAgICAgICAgICAgIC AgICAgICAgICAgICAgICAgICAgICAgICAgICAgICAg HZ2RANByQEHmNRRdIGQtJJOyUAMcTTAyHQZyNVOzPGZjRKXbXMUoPKUmMAHpDXMmTLAnNVPmTXHrNGKv HBIrXELqXKOhPSJuGPEwQHAaECBeLYIyYWClQDMuHTEvQQGkGNOmPPHqTA2XHPUaDPYvPLUhDALiNPNg ICAgICAgICAgICAgICAgICAgICAgICAgICAgICAgIC IlQNWoPFJbSBZfDOBxIBTcBDEtBYDrDUDgHKMmUTZkLEXuDXZwJPRdEGOrJPGnSXDkSIDbOR9KTFKrLH AgICAgICAgICAgICAgICAgICAgICAgICAgICAgICAgICAgICAgICAgICAgICAgICAgICAgICAgICAgIC AgICAgICAgICAgICAgICAgICAgICAgICAgICAgICAg ASMzYF2JRXDxOGNcEEIvWZVoTQSgXAXlKYNsUQLvUATfSJKpLJSyVQXiBUNlYENtCQPeNXIwEUAlOBCx AVFlWCXvBGJhMFOqUGGlEYCyBEFoTVDjDKVqZURgBHLmHNXuKRSuWLXvLXXxNS3ORYOyTVSaIGPcQSQz ICAgICAgICAgICAgICAgICAgICAgICAgICAgICAgIC TgZDMxSIPkKXCxZCDgPRAkOTDpKRIoCTBuQVImPSYbOPYuRKMzVKZqRNCeJUWuMCGmGLYnEOIjYS7JPE AgICAgICAgICAgICAgICAgICAgICAgICAgICAgICAgICAgICAgICAgICAgICAgICAgICAgICAgICAgIC AgICAgICAgICAgICAgICAgICAgICAgICAgICAgICAg VCBqSMEgIM1CNMJmMKLkYOUpABYsWQMiDOGtCZFnVYKlTYQfNWBqURWeODTtYFMsWCCcYFNyVPZxZKLo NZUfAIZoGPFcDIYfTYJuWRPyNOIsNAXcHQIfIFShMIPsDIArLCNoVQJhPVQjADNfNI2DMBAwDRMaQWVg ICAgICAgICAgICAgICAgICAgICAgICAgICAgICAgIC AgICAgICAgICAgICAgICAgICAgICAgICAgICAgICAgICAgICAgICAgICAgICAgICAgICAgICAgICAgIA 0KICAgICAgICAgICAgICAgICAgICAgICAgICAgICAgICAgICAgICAgICAgICAgICAgICAgICAgICAgIC AgICAgICAgICAgICAgICAgICAgICAgICAgICAgICAg CVXlRLFpMRMwPR4RDI74rZVxf1P1OEAlCF1iqey/Di8QRWnhnbHwjEArFI7YZqYmIC4dbe8OYcAtIB2a ml8HPAsWRiNlU0D3sVXpNRRsVUNHMqNcM56rBZmyQy53XHumUOIiIbNbULz8Ff3BNiVbM4lgLBSeSqK1 CPRqItB3KTWjAuK1EGMkVhKwNGwxDB1Bl0FuuEXwRG o+Wn4JYV0vw2HgVGtsMUPzRQ4vcw1ZMDuIPiDcD2SsbeP2HIF7OOIlKw0ESIVfEAWguACjHAZtZFXFJj MnZ7ShmN52QNMYBh4+AWzvymHmZflZQeI4CBXmr9EpAEf2DC7XPMMrVOu3xTPvG81ln6DtnPTeSvcqN1 87fuTmBRzwGYEBYLpmaDmmIQlviq8REPX0XNQwKG0f OEGaACNrPoO8YIGGPF4BMNAaYWAlhNJfKHZtNRJXPZ3AWNdxFVG1NVZrzxUudCHwKMnzIV4XXSQzlsVb MjQgMCBSDQo+Fl4AXW1ke2YkUQilXxHgMM3zch5KPRtDGuPwB4N4vAWxC8S3HZdjUq5UNKBzRNHxKkXg OIHJGKbiOR5SPM3twfE4EO4NqFQyCODrWSAteQLiIQ h6X37ddVCsHSzzDM4LNIT+Tyesha+Mn6WDJCkRGKnSQFbAyReBTYWQfZsH9YdA8FTa5SjX5XrGV49lExjoh IcFOnvUS4SDF2oDXDpHCCLUI4YhPZxsG7wavAkELLqIJPCEfWvN44gqVChXNVaWUGxNLFiCm6IYJQiM7 KotqMknBnbuxNtOSCdHOKSAK1MRDpxbcZulBZyoHyh WZ68fYpcWD5CNh1TKjDfPW9nzv1TnNCfLu2SAIDfOp4QTDHbVPPzXKCuVMO3KKGsCvCsDHjgXTXnGTCw HFR6YKNcKWCpDQ6ENoTgSIFqGOR5DFzyDOFmYVBzdg4NYOEsGPUeLGCqMVZzEWLeHKBgOJkaIUAjNMSw ZQE5STSwUWDbUY3BKcTwAAFyTKJ0EHEyBVOlAQSjlm 8NETToQLGgTlwpWGNhKDOzNDQuHHooUCDvPGW7OBF5SYWwBWEkCM8GBkVjAGTvFOnjVEEaXYXiOCRkqn 9GXPGcWCIwAff7IFHzUDNiYWOfBPxhBVKuVLN7GQC2SRBkSCAvRT0QHtGtLOOrJZieNKNmUMLoVDDyct 9GTYCaCGRpCZXeDrWpPOGyZKNdMPwtXCUuZCN1Gda1 LAEaOCHgRR9JTfOzIJCcWBRkUMVpAZRhQSSmwz6SOZOoHODgQXZ9NnEyUGPzCZVgBUfvFCJhAZEbTxH2 IHMyWLJzGF3NFfHlDFYsWPB9VRTwFVWcHJKvky6QFYMqGFXeHHl8DIKxNWRoJVWfIDpoZGKhHIUqPOfl CZVgYWZaEB4KExMrWYMvZBVpPQQiJLFnFZAfxz7QKL HrSPPnYvT0CSSiUGVrJQZsPCdpEKIxZEYoQTWxLULhRJKiMU8NUgMqWGCzQRD6ElRtGYMaIDBbln0ZYX XpNYKoZYSkGMUhOWFjGAIxYJcpPTJuDPN7Yqu6ZYFlFPKfDT7VOuHnWZMmINK2NlHvFANuYBKziu3TzR OqmAmoof2NZPnTGw7HtJwvKHS7QOlkIm6srMToDeMo PRGAGx0DysGkLLBrDMEEGRoqGCUtACCxDBV0WYF2ZtUiXCc6YkB6PFuoEELoCYS2PxkoOmxuHvZ7OnLb OQrwVUZlJIGoFOcgLLi4BCUkSbKuDZKkDIQcV4G+KT1nCIs+Vy9Yl9EhvmT5hyYuSHlaSCk5Cz0ZPXQG T0YNCg== ID Date Data Source [id number] 06/02/2020 12:37:04 PM [facility] Name Value Range Interpretation Code Description Data Beth rce(s) Supporting Document(s) Glucose [Mass/volume] in Capillary blood by Glucometer 130 mg/dL 70- 140 [facility] ID Date Data Source [id number] 06/02/2020 09:15:46 AM [facility] Name Value Range Interpretation Code Description Data Beth rce(s) Supporting Document(s) Glucose [Mass/volume] in Capillary blood by Glucometer 151 mg/dL 70- 140 H [facility] ID Date Data Source [id number] 06/02/2020 07:02:15 AM [facility] Name Value Range Interpretation Code Description Data Beth rce(s) Supporting Document(s) Leukocytes [#/volume] in Blood by Automated count 7.6 10*3/uL 4-10 [facility] Erythrocytes [#/volume] in Blood by Automated count 4.30 10*6/uL 4.6- 6.1 L [facility] Hemoglobin [Mass/volume] in Blood 13.7 g/dL 13.5-18 [facility] Hematocrit [Volume Fraction] of Blood by Automated count 41.1 % 4 1-53 [facility] Erythrocyte mean corpuscular volume [Entitic volume] by Auto mated count 95.5 fL 80-96 [facility] Erythrocyte mean corpuscular hemoglobin [Entitic mass] by Automated count 31.8 pg 27-33 [facility] Erythrocyte mean corpuscular hemoglobin concentration [Mass/volume] by Automated count 33.3 g/dL 32.0-36.0 [facility] distribution width [Ratio] by Automated count 15.4 % 11.5-14.5 H [facility] Platelets [#/volume] in Blood by Automated count 172 10*3/uL 150-400 [facility] Differential cell count method - Blood [facility] Neutrophils/100 leukocytes in Blood by Automated count 68 % [facility] Lymphocytes/100 leukocytes in Blood by Automated count 17 % [facility] Monocytes/100 leukocytes in Blood by Automated count 12 % [facility] Eosinophils/100 leukocytes in Blood by Automated count 2 % [facility] Basophils/100 leukocytes in Blood by Automated count 1 % [facility] Neutrophils [#/volume] in Blood by Automated count 5.21 10*3/uL 1.8-7 .0 [facility] Lymphocytes [#/volume] in Blood by Automated count 1.26 10*3/uL 1.2-4 .0 [facility] Monocytes [#/volume] in Blood by Automated count 0.89 10*3/uL 0-0.8 H [facility] Eosinophils [#/volume] in Blood by Automated count 0.14 10*3/uL 0-0.5 [facility] Basophils [#/volume] in Blood by Automated count 0.07 10*3/uL 0-0.2 [facility] Nucleated erythrocytes/100 leukocytes [Ratio] in Blood by Automated count 0 /100{WBCs} 0-0 [facility] ID Date Data Source [id number] 06/01/2020 09:41:21 PM [facility] Value Range Interpretation Code Description Data Beth rce(s) Supporting Document(s) Glucose [Mass/volume] in Capillary blood by Glucometer 140 mg/dL 70- 140 [facility] ID Date Data Source [id number] 06/01/2020 04:44:26 PM [facility] Value Range Interpretation Code Description Data Beth rce(s) Supporting Document(s) Glucose [Mass/volume] in Capillary blood by Glucometer 127 mg/dL 70- 140 [facility] ID Date Data Source [id number] 06/01/2020 12:06:48 PM [facility] Value Range Interpretation Code Description Data Beth rce(s) Supporting Document(s) Glucose [Mass/volume] in Capillary blood by Glucometer 157 mg/dL 70- 140 H [facility] ID Date Data Source [id number] 06/01/2020 08:21:32 AM [facility] Value Range Interpretation Code Description Data Beth rce(s) Supporting Document(s) Glucose [Mass/volume] in Capillary blood by Glucometer 124 mg/dL 70- 140 [facility] ID Date Data Source [id number] 06/01/2020 07:03:35 AM [facility] Value Range Interpretation Code Description Data Beth rce(s) Supporting Document(s) Leukocytes [#/volume] in Blood by Automated count 6.9 10*3/uL 4-10 [facility] Erythrocytes [#/volume] in Blood by Automated count 4.30 10*6/uL 4.6- 6.1 L [facility] Hemoglobin [Mass/volume] in Blood 14.0 g/dL 13.5-18 [facility] Hematocrit [Volume Fraction] of Blood by Automated count 41.0 % 4 1-53 [facility] Erythrocyte mean corpuscular volume [Entitic volume] by Auto mated count 95.4 fL 80-96 [facility] Erythrocyte mean corpuscular hemoglobin [Entitic mass] by Automated count 32.6 pg 27-33 [facility] Erythrocyte mean corpuscular hemoglobin concentration [Mass/volume] by Automated count 34.1 g/dL 32.0-36.0 [facility] distribution width [Ratio] by Automated count 15.0 % 11.5-14.5 H [facility] Platelets [#/volume] in Blood by Automated count 167 10*3/uL 150-400 [facility] Differential cell count method - Blood [facility] Neutrophils/100 leukocytes in Blood by Automated count 65 % [facility] Lymphocytes/100 leukocytes in Blood by Automated count 21 % [facility] Monocytes/100 leukocytes in Blood by Automated count 12 % [facility] Eosinophils/100 leukocytes in Blood by Automated count 1 % [facility] Basophils/100 leukocytes in Blood by Automated count 1 % [facility] Neutrophils [#/volume] in Blood by Automated count 4.53 10*3/uL 1.8-7 .0 [facility] Lymphocytes [#/volume] in Blood by Automated count 1.47 10*3/uL 1.2-4 .0 [facility] Monocytes [#/volume] in Blood by Automated count 0.81 10*3/uL 0-0.8 H [facility] Eosinophils [#/volume] in Blood by Automated count 0.08 10*3/uL 0-0.5 [facility] Basophils [#/volume] in Blood by Automated count 0.04 10*3/uL 0-0.2 [facility] Nucleated erythrocytes/100 leukocytes [Ratio] in Blood by Automated count 0 /100{WBCs} 0-0 [facility] ID Date Data Source [id number] 06/01/2020 08:20:09 AM [facility] Name Value Range Interpretation Code Description Data Beth rce(s) Supporting Document(s) Bicarbonate [Moles/volume] in Serum 23 mmol/L 22-29 [facility] Chloride [Moles/volume] in Serum or Plasma 102 mmol/L 98-107 [facility] Creatinine [Mass/volume] in Serum or Plasma 1.33 mg/dL 0.70-1.20 H [facility] Glucose [Mass/volume] in Serum or Plasma 112 mg/dL 70-140 [facility] Potassium [Moles/volume] in Serum or Plasma 3.9 mmol/L 3.4-5.1 [facility] Sodium [Moles/volume] in Serum or Plasma 137 mmol/L 136-145 [facility] Urea nitrogen [Mass/volume] in Serum or Plasma 22 mg/dL 8-23 [facility] Anion gap 3 in Serum or Plasma 12 mmol/L 8-15 [facility] Osmolality of Serum or Plasma by calculation 288 mosm/kg 275-300 [facility] Creatinine/Urea nitrogen [Mass Ratio] in Serum or Plasma 16 [facility] Calcium [Mass/volume] in Serum or Plasma 10.1 mg/dL 8.8-10.2 [facility] Glomerular filtration rate/1.73 sq M pre dicted among non-blacks [Volume Rate/Area] in Serum or Plasma by Creatinine-based formula (MDRD) >6 0 [facility] Glomerular filtration rate/1.73 sq M pre dicted among blacks [Volume Rate/Area] in Serum or Plasma by Creatinine-based formula (MDRD) >60 [facility] ID Date Data Source [id number] 05/31/2020 09:30:37 PM [facility] Name Value Range Interpretation Code Description Data Beth rce(s) Supporting Document(s) Glucose [Mass/volume] in Capillary blood by Glucometer 75 mg/dL 70- 140 [facility] ID Date Data Source [id number] 05/31/2020 05:41:37 PM [facility] MR ANGIOGRAPHY NECK WITHOUT CONTRAST 705 47FINAL RESULTInterpreted by:Hector Cullen MDINDICATION: 84-year-old male with transient aphasia. TECHNIQUE: [id number] and T1 fat suppressed sequences of the neck were obtained without intravenous contrast. 3-D rotational MIP reconstructions were obtained. The degree of the extracranial internal carotid artery stenosis was measured using NASCET criteria.COMPARISON: No prior relevant studies are available at the time of this dictation.FINDINGS: Bilateral internal carotid arteries are patent without hemodynamically significant stenosis or dissection. Bilateral cervical vertebral arteries are patent. There is a atherosclerotic plaque at the origin of for right internal carotid artery causing about the 30% narrowing. Mild atherosclerotic plaque is also noted at the origin of left internal carotid arteryIMPRESSION:Bilateral internal carotid and vertebral arteries are patent.This document has been electronically signed by Baldev clarke MD on 05/31/2020 5:34 PM Name Value Range Interpretation Code Description Data Beth rce(s) Supporting Document(s) ID Date Data Source [id number] 05/31/2020 05:18:20 PM [facility] Name Value Range Interpretation Code Description Data Beth rce(s) Supporting Document(s) Glucose [Mass/volume] in Capillary blood by Glucometer 99 mg/dL 70- 140 [facility] ID Date Data Source [id number] 05/31/2020 01:59:01 PM [facility] MR ANGIOGRAPHY HEAD WITHOUT CONTRAST [id number] RESULTInterpreted by:Baldev Connelly MD05/31/2020 11:36 AM MR ANGIOGRAPHY HEAD WITHOUT CONTRAST [id number] CLINICAL INFORMATION: ?stroke ADDITIONAL CLINICAL INFORMATION: None.TECHNIQUE: Multiplanar multisequential imaging of the brain was performed without intravenous contrast. 3-D rotational MIP reconstructions were obtained.Carotid Stenosis measurement were obtained per NASCET criteria.COMPARISON: NoneFINDINGS:INTRACRANIAL ICAs: Patent, without intra- arterial thrombus, stenosis or aneurysm.ACAs: Patent, without intra-arterial thrombus, stenosis or aneurysm.ACOMM: No aneurysm.MCAs: Patent, without intra- arterial thrombus, stenosis or aneurysm. There is a artifact the on the left MCA bifurcation which is most likely related to downward course of the artery. No obvious occlusion is visualized.PCOMMs: No aneurysm.ehs engineer: Patent, without intra-arterial thrombus, stenosis or aneurysm.BASILAR ARTERY: Normal caliber. Patent, without intra-arterial thrombus, stenosis or aneurysm.INTRADURAL VAs: Patent, without intra-arterial thrombus, stenosis or aneurysm. There is artifact the in the bilateral vertebral arteries as these enter into the skull base.OTHER: NoneIMPRESSION:Patent anterior and posterior circulations of the brain, without intra-arterial thrombus or aneurysm.This document has been electronically signed by Baldev Connelly MD on 05/31/2020 1:56 PM Name Value Range Interpretation Code Description Data Beth rce(s) Supporting Document(s) ID Date Data Source [id number] 05/31/2020 01:53:11 PM [facility] MR BRAIN WITHOUT CONTRAST [id number] ULTInterpreted by:Baldev Connelly MD05/31/2020 11:36 AMMR BRAIN WITHOUT CONTRAST [id number] CLINICAL INFORMATION: TIA. Transient aphasiaADDITIONAL CLINICAL INFORMATION: None. MR IMAGING OF THE BRAIN WITHOUT CONTRASTPROCEDURE: MR images were acquired using multiple sequences in multiple planes.COMPARISON: NoneFINDINGS: CEREBRAL PARENCHYMA: No evidence of acute infarct, hemorrhage, or intracranial mass. There are a few T2/FLAIR hyperintense foci in the periventricular, deep and subcortical white matter of bilateral cerebral hemispheres. These likely represe nt microvascular disease in a patient this age. With Midline structures including corpus callosum and cerebellar tonsils are normal.VENTRICLES AND EXTRA-AXIAL SPACES: The ventricles, sulci and fissures are normal in size and configuration for the patient's age. No extra-axial fluid collection is present.CALVARIUM AND VISUALIZED SKULL BASE: Intact.. Normal flow voids in the major vessels including the venous sinuses.IMPRESSION: No acute intracranial abnormality is seen. There are areas of nonspecific small vessel ischemic disease and generalized volume loss.END OF IMPRESSIONThis document has been electronically signed by Baldev Connelly MD on 05/31/2020 1:51 PM Name Value Range Interpretation Code Description Data Beth rce(s) Supporting Document(s) ID Date Data Source [id number] 05/31/2020 01:14:32 PM [facility] Name Value Range Interpretation Code Description Data Beth rce(s) Supporting Document(s) Glucose [Mass/volume] in Capillary blood by Glucometer 105 mg/dL 70- 140 [facility] ID Date Data Source [id number] 05/31/2020 12:01:24 PM [facility] Name Value Range Interpretation Code Description Data Beth rce(s) Supporting Document(s) History and Physical [facility] [id number]wBeK0 [facility] [file] ICAgICAgICAgICAgICAgICAgICAgICAgICAgICAgIC NcQOImABFsDCAvHAZxESZuVCXyEXTwUFLvLJJiRVQsXO7NSAWtTBEvAPIiRJRzHRCyQBYqKSEiMUJaPM AgICAgICAgICAgICAgICAgICAgICAgICAgICAgICAgICAgICAgICAgICAgICAgICAgICAgICAgICAgIC OiCWGrNIZsCZGhKRLoYR4CROOtDTReIBTcOTEdDKNk ICAgICAgICAgICAgICAgICAgICAgICAgICAgICAgICAgICAgICAgICAgICAgICAgICAgICAgICAgICAg MDInJWVfDUNrBTTxFHAeGVInPWRzOCAkML1KZNCzXIJoTBNwPMAwNHKcHCWxQUKgVVKgNQXdSAYqPWMb ICAgICAgICAgICAgICAgICAgICAgICAgICAgICAgIC UwFRGgYKAbLMYgEYWlDDOdTTHbZJBwHLQoEYZlJDGgDSEjUM2UDBRiVQJnNIKtRXZjEXYkTAXiQBZuXS AgICAgICAgICAgICAgICAgICAgICAgICAgICAgICAgICAgICAgICAgICAgICAgICAgICAgICAgICAgIC NuNROqUYKpOXZrZZIsEWZhPZ1BUAQwMDHyOTXlSSBb ICAgICAgICAgICAgICAgICAgICAgICAgICAgICAgICAgICAgICAgICAgICAgICAgICAgICAgICAgICAg NVYfOXBuROTnYLWpYWVrGEMnIQWvFDFkAZVtIN8PVYDmYWWsCCBsPUMrLBIvIEBwCYDtWUUxUBRvPLEq ICAgICAgICAgICAgICAgICAgICAgICAgICAgICAgIC KrFAIkLWZvYGLpXCXuZLAzWEEvTUEnSHXxWSTvVANuHYHrHJSgJH1QXEGlPBLjADKhHRLvCOFqFLCpPA AgICAgICAgICAgICAgICAgICAgICAgICAgICAgICAgICAgICAgICAgICAgICAgICAgICAgICAgICAgIC DeZWNbJDFqXJFwATDkWCQgIPTtEK3XRHAfCCMoHMSx ICAgICAgICAgICAgICAgICAgICAgICAgICAgICAgICAgICAgICAgICAgICAgICAgICAgICAgICAgICAg LOQvIPUmGVRnQWCuBYVbMOBpFWNyDFUrKNWhGZVdFB6QQGLdRRVjBUSfGBUcGWYtHREkMIEiFAKnRFRi ICAgICAgICAgICAgICAgICAgICAgICAgICAgICAgIC WcENTfJBRgFHQnHOAuYWPyHMDrSPTiNQFyYIFjDDBeXSGiZQDfUUAhHC4KWP22pEBhj2D8ODHdEJ9vla c/Tw2RCGatmlUptNPnWV3PQxDqAE2ryv1HGlUdTW0olw0UUJgXMyKwP7T5bKIuRKBoVTFMVsSqR53hVX oiJc11DKptBFSmSdNkJNw5Rg7OOiRdX4rqBKHcHoH4 XVXrGsY3JPPiEnDcWTAhZLMyNOEdGZYCZOE9ICUjOwPbDrMtOQFbRE1RDKMhJ203prCjFb9QYr7BWnTf RN9bng1JEeAtDHMnNnfNCld0YUxkTI5RuOGkfMHmDhOzXUSMPvZeG8pwm1PvMykhKKUSZHvcJX8Hj0Ml dCAxDQo+Dq9JYO0gc9YdUPkgArMfXI4osp9BWJzMTm GdR8XjjYkuCUhhCJXckSNVTAAgryIJpSwqaXKwOV2COoSgDBTjOd1rFv8pYYVgNBRdRjCqLUEVZX6CEI UcDELhzFXsLJAlDOJYUH0COKckFDC1RRVjfzEzlDVuWRkxXE4TQROqngOyInWmQHVKQZr+Oh2RZX9ps0 WlFMu3KPSfx3OlKFy3GU0WMQLaYXtuQMVrFF5oz3Yl L7R5ZoG8pAEzW4fzzxshQ3SdoaVytoTtYALzGVSiMH7UBR0BBT9MSFApMTpiBY2ZEBQ5TZudVrVjRdQv DWW2JyI2EGBaNS5XOHXyQMZ4RV3FRM5HTsrlP5DFXZzAiYdtXIYNRzWVBgtcZCMlZ0OVF7wNM8wVD8Yo W61BT78fI3FVDA8OT0HEITybWo4xKYj+Yn7TAF9pl1 BvXAqtFIGnDO3frh3IGYoXFlOqE1F6hXAbZ3R9AHtlZe5ZVCDxUFCrQdWtVUGPCVsnKM5OVS4yyeQ5RK 1KcZDhVUWfOFVouZKqTOr3T96hrOIxSPukES5FFSN+Tyesha+Ys7HPTGuEBTrPKRuZkRwFXMLYvNoB3MdC9 LIj5UwY0OdWG94lOyxiqQfOXbbWN9KOX5dPSKfMQOY ND2BgJPrsB2ufxHvHnUcGRSSPdSpC58whMQuOTQcNRG3XQLxFu5OCMKuQ6FosmQniCalhcMrHOHrBWAX NR0LZFogerBfjIDznLilKK77lOsaZK6IKp5NYmBsEI4eib8OlQWcUd3WRLWyUL9JWAOsITEwBPRnUYT5 DMKuVlIxKQlpJDGhDPHxMWH6XJRlLLMsBT2OEyRoNN JcRYI9YOYqPXFwNMMumm0DVJThWVE6XkW1RhLyYFAmJLUkZKamIQGaSDDaTGW2SDQiIRFuAH5ZBpBzNR FmJXFbXMFmBZPnBFGulu0BNGJdNZUqGWI7HFRwHEBfYEXmCDlnCOIaEOA6XVQ2SHXyRVYwVT3LNwDlII JwTLS7NWqpJBMxHSSuif2SOJNmQEZxDUW0YHIcYNCd YSJiXCqtWAWfPKKsEqv6AKHbFLKhZG0ZYkAkMRTtWVL3BLAjTOQiZEZhpv6QHFSlLSRhYDTaSuRjABIs FDLbFQyoBJAgRKQ6AmSrPVOkZKCwWT7DXmReEPYxIVb0PSXuLYIaYZCovg9ASGSxTQGmSLk0FaFlFXQi EBXlHGvwYFNiQSOzPZF7SILhDEVdTR5MBrRpGDYjRj XqMIOcYQUoLASadf0VQLZqHFFvQvWsMhIlSQInBDNlJOyzQJEfNYVaHUIlOLAqDENqXI2KBeXsWKZxHp N0HKSsENTvWIYsin0JWAFnMWWhXlW6CoKuJEMgIQEcVWwlJJRaMRGiOjY2PGTsXOBcWP5GWeViUBNjCd O9ZBLkNGRaCDIdsl9HAQHzKVQcSZrtTIVqUPYhKOHt JYiqWOChXIW7NGBhFLZvZPLbAQ9ONkIhWWKlRoTmGXWvFYHmRPTura8HNJZeJAQbLdY4NWEaKZZgIISc ZOzaZZPrLRE2FLY7EFVpYXIlMG4PDuMsCKNgTtR9ZfPkQBRoZAZohm1HOWVcIIR4ZMQwROEfQMLyBEDr PTawHUOlQYV5XNfwCGLzQBZeRP4LKiBqKJGrQXOqNF JzNQLjITBfdy2TAAEoDZF8AEvjYsJsZAXoNTLkPBvjPRTvALSzUAzgQLUtLFJvMI6RCtOkTHAbAGOvMH RdKAToVGFwma2KWKBkSBN3Sof5KTMpTBNwIOUjXXkyGFVqWCJxUMM1AWEmFLImGM0RBjNcWGGyLQTaTZ EoPFIlGENjhn5EcFVfjPjqio6ORNxNPh0IeOnnEFH2 KIvbLr4mnNSgBYKwKGTUJd1UxhScISYlBLYISTvlFZCfPFXnNUQ9M2RnYhV1RTHhZtO8I7LeApJkJMDn P9U3JaQhTkE9AuZ8YYBiMPE5LOZlEgBtHCZ7HDKlILW6UzQaDNxyXAC+EH0lACe+Vb7Qq2PgexX2yfIz DKt5BvTxSV2OWIAAX0SRFy== ID Date Data Source [id number] 05/31/2020 08:24:00 AM EST [facility] l DATE OF EXAMINATION: 05/30/2020 21:36 EST BRAIN W/O CONTRAST INDICATION: Altered mental status, memory loss COMPARISON: None. This CT exam was performed using the following dose reduction techniques:Automated exposure control, adjustment of mA and/or kV according to thepatient's size, and use of iterative reconstruction technique. TECHNIQUE: Axial images were obtained from the gonzales magnum to the vertex. FINDINGS: The basal cisterns cortical sulci and ventricles are prominentconsistent with atrophic change. There is decreased attenuation of theperiventricular white matter, consistent with small vessel ischemic disease.There is no mass effect or midline shift. No intracranial bleeds. No intra orextra-axial collections. The calvarium and extracranial soft tissues areunremarkable. The visualized paranasal sinuses are well aerated. IMPRESSION: Atrophic changes with periventricular leukomalacia. No acute intracranialabnormalities. Electronically signed in PS360 by: Alexei Vuong M.D. 05/31/2020 8:19 EST Name Value Range Interpretation Code Description Data Beth rce(s) Supporting Document(s) ID Date Data Source [id number] 05/31/2020 08:22:39 AM [facility] Value Range Interpretation Code Description Data Beth rce(s) Supporting Document(s) Glucose [Mass/volume] in Capillary blood by Glucometer 113 mg/dL 70- 140 [facility] ID Date Data Source [id number] 05/31/2020 07:19:08 AM [facility] Value Range Interpretation Code Description Data Beth rce(s) Supporting Document(s) Platelet aggregation arachidonate induced [Units/volume] in Bloo d 460 ARU <550 [facility] (NOTE)350-549 ARU Therapeutic aspirin r [id number] ARU Non-therapeutic range for aspirin ID Date Data Source [id number] 05/31/2020 04:32:19 AM [facility] Value Range Interpretation Code Description Data Beth rce(s) Supporting Document(s) Hemoglobin A1c/Hemoglobin.total in Blood by HPLC 7.0 % 4.0-6.0 H [facility] (NOTE)<5.7% Average risk of diabetes (ADA)5.7-6.4% Increased risk of diabetes(ADA)>/= 6.5% Diagnostic for diabetes(ADA) Glucose mean value [Mass/volume] in Blood Estimated fr om glycated hemoglobin 153 mg/dL <126 H [facility] ID Date Data Source [id number] 05/31/2020 04:13:04 AM [facility] Value Range Interpretation Code Description Data Beth rce(s) Supporting Document(s) Leukocytes [#/volume] in Blood by Automated count 9.2 10*3/uL 4-10 [facility] Erythrocytes [#/volume] in Blood by Automated count 4.29 10*6/uL 4.6- 6.1 L [facility] Hemoglobin [Mass/volume] in Blood 13.9 g/dL 13.5-18 [facility] Hematocrit [Volume Fraction] of Blood by Automated count 41.3 % 4 1-53 [facility] Erythrocyte mean corpuscular volume [Entitic volume] by Auto mated count 96.2 fL 80-96 H [facility] Erythrocyte mean corpuscular hemoglobin [Entitic mass] by Automated count 32.4 pg 27-33 [facility] Erythrocyte mean corpuscular hemoglobin concentration [Mass/volume] by Automated count 33.7 g/dL 32.0-36.0 [facility] width [Ratio] by Automated count 15.1 % 11.5-14.5 [facility] Platelets [#/volume] in Blood by Automated count 199 10*3/uL 150-400 [facility] Differential cell count method - Blood [facility] Neutrophils/100 leukocytes in Blood by Automated count 70 % [facility] Lymphocytes/100 leukocytes in Blood by Automated count 18 % [facility] Monocytes/100 leukocytes in Blood by Automated count 10 % [facility] Eosinophils/100 leukocytes in Blood by Automated count 1 % [facility] Basophils/100 leukocytes in Blood by Automated count 1 % [facility] Neutrophils [#/volume] in Blood by Automated count 6.49 10*3/uL 1.8-7 .0 [facility] Lymphocytes [#/volume] in Blood by Automated count 1.66 10*3/uL 1.2-4 .0 [facility] Monocytes [#/volume] in Blood by Automated count 0.92 10*3/uL 0-0.8 H [facility] Eosinophils [#/volume] in Blood by Automated count 0.11 10*3/uL 0-0.5 [facility] Basophils [#/volume] in Blood by Automated count 0.05 10*3/uL 0-0.2 [facility] Nucleated erythrocytes/100 leukocytes [Ratio] in Blood by Automated count 0 /100{WBCs} 0-0 [facility] ID Date Data Source [id number] 05/31/2020 04:26:27 AM [facility] Name Value Range Interpretation Code Description Data Beth rce(s) Supporting Document(s) Prothrombin time (PT) 13.2 s 12.5-14.9 [facility] INR in Platelet poor plasma by Coagulation assay 0.99 [facility] Routine intensity oral anticoagulation I NR is typically 2.0-3.0. Target INR must be clinically individualized. ID Date Data Source [id number] 05/31/2020 04:38:29 AM [facility] Value Range Interpretation Code Description Data Beth rce(s) Supporting Document(s) Cholesterol [Mass/volume] in Serum or Plasma 146 mg/dL <200 [facility] Triglyceride [Mass/volume] in Serum or Plasma 136 mg/dL <150 [facility] Cholesterol in HDL [Mass/volume] in Serum or Plasma 45 mg/dL >40 [facility] Cholesterol in LDL [Mass/volume] in Serum or Plasma by calcu lation 73 mg/dL <100 [facility] Cholesterol in VLDL [Mass/volume] in Serum or Plasma by calc ulation 27 mg/dl 16-42 [facility] Cholesterol non HDL [Mass/volume] in Serum or Plasma 101 mg/dL <130 [facility] ID Date Data Source [id number] 05/31/2020 04:38:29 AM [facility] Name Value Range Interpretation Code Description Data Beth rce(s) Supporting Document(s) Thyrotropin [Units/volume] in Serum or Plasma 2.430 u[IU]/mL 0.270-4. 200 [facility] ID Date Data Source [id number] 05/31/2020 04:38:29 AM [facility] Name Value Range Interpretation Code Description Data Beth rce(s) Supporting Document(s) Albumin [Mass/volume] in Serum or Plasma by Bromocresol green (BCG) dye binding method 4.0 g/dL 3.5-5.2 [facility] Bilirubin.total [Mass/volume] in Serum or Plasma 1.1 mg/dL <1.2 [facility] Calcium [Mass/volume] in Serum or Plasma 10.0 mg/dL 8.8-10.2 [facility] Chloride [Moles/volume] in Serum or Plasma 101 mmol/L 98-107 [facility] Creatinine [Mass/volume] in Serum or Plasma 1.48 mg/dL 0.70-1.20 H [facility] Glucose [Mass/volume] in Serum or Plasma 159 mg/dL 70-140 H [facility] Alkaline phosphatase [Enzymatic activity/volume] in Serum or Plasma 70 U/L 40-129 [facility] Potassium [Moles/volume] in Serum or Plasma 3.8 mmol/L 3.4-5.1 [facility] Protein [Mass/volume] in Serum or Plasma 6.0 g/dL 6.4-8.3 L [facility] Sodium [Moles/volume] in Serum or Plasma 136 mmol/L 136-145 [facility] Aspartate aminotransferase [Enzymatic activity/volume] in Serum or Plasma 23 U/L <40 [facility] Urea nitrogen [Mass/volume] in Serum or Plasma 26 mg/dL 8-23 H [facility] Osmolality of Serum or Plasma by calculation 290 mosm/kg 275-300 [facility] Creatinine/Urea nitrogen [Mass Ratio] in Serum or Plasma 18 [facility] Bicarbonate [Moles/volume] in Serum 24 mmol/L 22-29 [facility] Alanine aminotransferase [Enzymatic activity/volume] in Seru m or Plasma 10 U/L <41 [facility] Anion gap 3 in Serum or Plasma 12 mmol/L 8-15 [facility] Glomerular filtration rate/1.73 sq M pre dicted among non-blacks [Volume Rate/Area] in Serum or Plasma by Creatinine-based formula (MDRD) >6 0 [facility] Glomerular filtration rate/1.73 sq M pre dicted among blacks [Volume Rate/Area] in Serum or Plasma by Creatinine-based formula (MDRD) >60 [facility] ID Date Data Source [id number] 05/31/2020 02:47:00 AM [facility] Patient: JOSE CRISOSTOMO Observation Report [facility].VisitID: [id number] [place] [address] [phone], MRegistration Date/Time: 05/30/2020 21:20 Weight:77.1 kg (S). Height/Length:71 inches (E). BMI:23.7 PAST HISTORYProblems:Hyperlipidemia [Chronic].Tremor [Chronic].Peripheral Arterial Occlusive Disease [Chronic].Constipation [Chronic].CHF [Chronic].Diabetes Mellitus [Chronic].Bronchitis [Chronic].Hypertension [Chronic].Insomnia [Chronic].Irritable bowel syndrome (disorder) [Chronic].Heart Disease [Chronic].Coronary Artery Disease [Chronic].Crohn's Disease [Chronic].Kidney disease stage 3 [Chronic].Malaria [Inactive]. Additional Surgeries:Cardiaic stents 7.Cataract surgery bilaterall eyes.Exploratory laparotomy.Hernia Repair.Skin cancer removal.Stent Placement . (2 left leg artery ). Medications:Aspirin Oral (Tablet Chewable 81 mg) 1 tablet, daily, last dose unknown .Acetaminophen Oral (Capsule 500 mg) 1-2 capsules, at bedtime, last dose unknown .Benadryl Allergy Oral (Tablet 25 mg) 1 tablet, q12h as needed, last dose unknown .Allopurinol Oral 100 mg, daily, last dose unknown .amLODIPine Besylate Oral (Tablet 10 mg) 1/2 tablet, daily, last dose unknown .Atorvastatin Calcium Oral (Tablet 20 mg) 1 tablet, daily, last dose unknown .Bisoprolol Fumarate Oral (Tablet 5 mg) 1 tablet, daily, last dose unknown Breo Ellipta Inhalation (Aerosol Powder Breath Activated 200-25 mcg/inh) 1 puff , daily, last dose unknown .Budesonide Oral 3 mg, 2x a day, last dose unknown .Doxepin HCl Oral (Capsule 100 mg) 1 capsule, daily, last dose unknown .Incruse Ellipta Inhalation (Aerosol Powder Breath Activated 62.5 mcg/inh) 1 puff , daily, last dose unknown .Januvia Oral (Tablet 50 mg) 1 tablet, daily, last dose unknown .Lantus Subcutaneous (Solution 100 unit/mL) 15units, daily, last dose unknown .MiraLax Oral 1 packet, daily as needed, last dose unknown .Pantoprazole Sodium Oral (Tablet Delayed Release 40 mg) 1 tablet, daily, last dose unknown .Repaglinide Oral (Tablet 1 mg) 2 tablets, 3x a day before meals, last dose unknown .Spironolactone Oral (Tablet 25 mg) 1/2 tablet, daily, last dose unknown . Allergies:Alprazolam.(confusion)Cephalexin.(rash). FAMILY HISTORYFather: Coronary Artery Disease, Myocardial Infarction. Mother: Hodgkin's disease (clinical). Brother(s): Cancer. Sister(s): Cancer. (Electronically signed by Shannon Cardona, P.A. 05/31/2020 02:33) Name Value Range Interpretation Code Description Data [facility](s) Supporting Document(s) ID Date Data Source [id number] 05/31/2020 02:24:30 AM [facility] Name Value Range Interpretation Code Description Data [facility](s) Supporting Document(s) Glucose [Mass/volume] in Capillary blood by Glucometer 157 mg/dL 70- 140 H [facility] ID Date Data Source [id number] 05/30/2020 10:30:00 PM EST [facility] Name Value Range Interpretation Code Description Data Beth rce(s) Supporting Document(s) [facility] This lab was ordered by [facility] and reported by [facility]. ID Date Data Source [id number] 05/30/2020 10:57:00 PM EST [facility] TSYSORDER [id number] Name Value Range Interpretation Code Description Data Beth rce(s) Supporting Document(s) COVID-19 NEGATIVE NEGATIVE [facility] Negative results should be treated as pr esumptive and, ifinconsistent with clinical signs and symptoms or necessaryfor patient management, should be tested with differentauthorized or cleared molecular tests.Negative results do not preclude SARS-CoV-2 infection andshould not be used as the sole basis for patient managementdecisions.This is a rapid molecular in vitro diagnostic test utilizingan isothermal nucleic acid amplification technology intendedfor the qualitative detection of nucleic acid from the SARS-CoV-2 viral RNA in direct nasal, nasopharyngeal orthroat swabs from individuals who are suspected of COVID-19.Results are for the indentification of SARS-CoV-2 RNA. YgdKKGX-[id number]-1 RNA is generally detectable in respiratorysamples during the actue phase of infection. ID Date Data Source [id number] 05/30/2020 10:16:00 PM EST [facility] [id number] Name Value Range Interpretation Code Description Data Beth rce(s) Supporting Document(s) MAGNESIUM 1.7 mg/dL 1.8-2.4 L [facility] ID Date Data Source [id number] 05/30/2020 10:16:00 PM EST [facility] [id number] Name Value Range Interpretation Code Description Data Beth rce(s) Supporting Document(s) GLUCOSE 128 mg/dL 74-106 H [facility] BLOOD UREA NITROGEN 30 mg/dL 7-18 H [facility] CREATININE 1.88 mg/dL 0.7-1.3 H [facility] SODIUM 141 mmol/L 136-145 [facility] POTASSIUM 4.1 mmol/L 3.5-5.1 [facility] CHLORIDE 103 mmol/L 98-107 [facility] CO2 28 mmol/L 21-32 [facility] CALCIUM 10.2 mg/dL 8.5-10.1 H [facility] ANION GAP 10.0 mmol/L 5-12 [facility] GLOMERULAR FILTRATION RATE 35 mL/min [facility] GFR IS CALCULATED IN mL/min/1.73m2 ANDRE L FUNCTION: >90MILDLY DECREASED: 60-89MILDY TO MODERATELY DECREASED: 45-59 MODERATELY TO SEVERELY DECREASED: 30-44SEVERELY DECREASED: 15-29RENAL FAILURE: <15 AST 26 U/L 15-37 [facility] ALT 20 U/L 12-78 [facility] ALKALINE PHOSPHATASE 73 U/L 46-116 [facility] TOTAL BILIRUBIN 1.1 mg/dL 0.2-1.0 H [facility] TOTAL PROTEIN 6.3 g/dl 6.4-8.2 L [facility] ALBUMIN 3.7 gm/dL 3.4-5.0 [facility] ID Date Data Source [id number] 05/30/2020 10:16:00 PM [facility] [id number] Name Value Range Interpretation Code Description Data Beth rce(s) Supporting Document(s) LIPASE 146 U/L 73-393 [facility] ID Date Data Source [id number] 05/30/2020 10:12:00 PM [facility] TSYSORDER [id number] Name Value Range Interpretation Code Description Data Beth rce(s) Supporting Document(s) AMMONIA 10 umol/L 11-32 [facility] ID Date Data Source [id number] 05/30/2020 10:12:00 PM [facility] TSYSORDER [id number] Name Value Range Interpretation Code Description Data Beth rce(s) Supporting Document(s) PARTIAL THROMBOPLASTIN TIME 21.9 SECONDS 21.2-27.3 [facility] ID Date Data Source [id number] 05/30/2020 10:12:00 PM [facility] TSYSORDER [id number] Name Value Range Interpretation Code Description Data Beth rce(s) Supporting Document(s) PROTHROMBIN TIME (PATIENT) 10.5 SECONDS 9.1-11.6 [facility] INR 1.01 0.87-1.06 [facility] ID Date Data Source [id number] 05/30/2020 09:57:00 PM EST [facility] ital TSYSORDER [id number] Name Value Range Interpretation Code Description Data [facility] rce(s) Supporting Document(s) URINE COLOR. [facility] URINE APPEARANCE CLEAR [facility] l URINE GLUCOSE (UA) NEGATIVE mg/dL NEGATIVE [facility] URINE BILIRUBIN NEGATIVE NEGATIVE [facility] URINE KETONE NEGATIVE mg/dL NEGATIVE [facility] SPECIFIC GRAVITY,URINE 1.020 1.001-1.035 [facility] URINE BLOOD NEGATIVE NEGATIVE [facility] PH,URINE 6.0 5.0-9.0 [facility] URINE PROTEIN NEGATIVE mg/dL NEGATIVE [facility] maura URINE UROBILINOGEN NORMAL(0.2-1) mg/dL 0-1 [facility] URINE NITRATE NEGATIVE NEGATIVE [facility] URINE LEUKOCYTE ESTERASE NEGATIVE NEGATIVE [facility] ID Date Data Source [id number] 05/30/2020 09:55:00 PM EST [facility] l TSYSORDER [id number] Name Value Range Interpretation Code Description Data [facility] rce(s) Supporting Document(s) WHITE BLOOD COUNT 11.1 K/mm3 4.0-10.0 H [facility] maura RED BLOOD COUNT 4.32 M/mm3 4.50-6.00 L [facility] l HEMOGLOBIN 13.9 gm/dL 14.0-18.0 L [facility] HEMATOCRIT 40.6 % 42.0-54.0 L [facility] MEAN CELL VOLUME 94.0 fl 80-96 [facility] MEAN CORPUSCULAR HEMOGLOBIN 32.2 pg 27.0-31.0 H [facility] MEAN CORPUSCULAR HGB CONC 34.2 g/dl 32.0-36.0 [facility] RED CELL DISTRIBUTION WIDTH 14.0 % 10.0-14.5 [facility] PLATELET COUNT 200 K/mm3 172-450 [facility] MEAN PLATELET VOLUME 10.0 fl 9.0-13.0 [facility] pital GRAN % 73.7 % 50-80.0 [facility] IG% 0.8 % 0.0-0.2 H [facility] LYMPH % 15.1 % 25.0-50.0 L [facility] MONO % 9.1 % 2.0-10.0 [facility] EOS % 0.9 % 0-5.0 [facility] BASO % 0.4 % 0.0-2.0 [facility] GRAN # 8.2 K/mm3 2.0-8.00 H [facility] IG# 0.1 K/mm3 0.0-0.2 [facility] LYMPH # 1.7 K/mm3 1.0-5.0 [facility] MONO # 1.0 K/mm3 0.10-1.20 [facility] EOS # 0.1 K/mm3 0.0-0.5 [facility] BASO # 0.0 K/mm3 0.0-0.2 [facility] ID Date Data Source [id number] 05/14/2020 01:39:00 PM EST [facility] ([facility]) Name Value Range Interpretation Code Description Data Beth rce(s) Supporting Document(s) Hemoglobin A1c/Hemoglobin.total in Blood 6.4 [facility] Glucose [Mass/volume] in Serum or Plasma 219 [facility] ([facility]) ID Date Data Source [id number] 03/05/2020 10:58:40 PM EST [facility] Name Value Range Interpretation Code Description Data Beth rce(s) Supporting Document(s) &PDF [facility] MAZKPn3aXiPZGgXq81/OHMbaEGVng3DvASfoXXf2FXzmLIJoM5LtuGjuUYMVFB1MBFPLDXBNSXpiNzBa yKE [file] ICAgICAgICAgICAgICAgICAgICAgICAgICAgICAgIC AgICAgICAgICAgICAgICAgICAgICAgICANCiAgICAgICAgICAgICAgICAgICAgICAgICAgICAgICAgIC AgICAgICAgICAgICAgICAgICAgICAgICAgICAgICAgICAgICAgICAgICAgICAgICAgICAgICAgICAgIC AgICAgICANCiAgICAgICAgICAgICAgICAgICAgICAg ICAgICAgICAgICAgICAgICAgICAgICAgICAgICAgICAgICAgICAgICAgICAgICAgICAgICAgICAgICAg ICAgICAgICAgICAgICAgICANCiAgICAgICAgICAgICAgICAgICAgICAgICAgICAgICAgICAgICAgICAg ICAgICAgICAgICAgICAgICAgICAgICAgICAgICAgIC AgICAgICAgICAgICAgICAgICAgICAgICAgICANCiAgICAgICAgICAgICAgICAgICAgICAgICAgICAgIC AgICAgICAgICAgICAgICAgICAgICAgICAgICAgICAgICAgICAgICAgICAgICAgICAgICAgICAgICAgIC AgICAgICAgICANCiAgICAgICAgICAgICAgICAgICAg ICAgICAgICAgICAgICAgICAgICAgICAgICAgICAgICAgICAgICAgICAgICAgICAgICAgICAgICAgICAg ICAgICAgICAgICAgICAgICAgICANCiAgICAgICAgICAgICAgICAgICAgICAgICAgICAgICAgICAgICAg ICAgICAgICAgICAgICAgICAgICAgICAgICAgICAgIC AgICAgICAgICAgICAgICAgICAgICAgICAgICAgICANCiAgICAgICAgICAgICAgICAgICAgICAgICAgIC AgICAgICAgICAgICAgICAgICAgICAgICAgICAgICAgICAgICAgICAgICAgICAgICAgICAgICAgICAgIC AgICAgICAgICAgICANCiAgICAgICAgICAgICAgICAg ICAgICAgICAgICAgICAgICAgICAgICAgICAgICAgICAgICAgICAgICAgICAgICAgICAgICAgICAgICAg ICAgICAgICAgICAgICAgICAgICAgICANCiAgICAgICAgICAgICAgICAgICAgICAgICAgICAgICAgICAg ICAgICAgICAgICAgICAgICAgICAgICAgICAgICAgIC AgICAgICAgICAgICAgICAgICAgICAgICAgICAgICAgICANCjw/dGLtT8gnoGBryhQ8S5fzRw9UPb3EMU 2vy6BdSJUsBZskfhLgCvsMSxLhLMZgAokMIml8IFxqJE0DsQUrQ8UfP8BxCPkfEI1PLQNmOENxqWKwQW TbSTHpBqM1DUVmSQnrLD1BrYIiIOovMQXbREXpZuKw ERClIZ6HGKSxJ829mvWcHy3XBm7BYeFbVV4hxv1YCBUsLALuLceYMjj4IBuaZE0YvWKyP6IsaWEsr7hF BxXjE1RVQDW8EZUuGg2MRGCyTcBwVAMoZQivIX0aSVLaCIDXgCwepmT1WR1NHN5lcfYfZZ7LWwOiJa9b Su4RWvQvU2FeE0XbXLXeYOAQPDnlJY8TMSSnCUU1ZU LuFVLaSCVGPtIiI17cLC2FL4Lzt43cBtN8QYStLhVfKGifOD20hNdotyYdpAIniFrhWP8BBn3+DQplbm RvBddNSyskTFEUPiEqJMEXSqBoHSHjSQDtRKWrJaY2VcToAy3GZIXuWPJgOJIeGbHhUENkCWJwXNgpVR BlBGR7DffaYBVaXROoTX7UXxApIVPmShpyLUEvRCIo KSPxba0AYJUdMRQgTPO7QnWpEWYcLVUaVPeuASWoFAAwOXS6XERiWTJrOO5JMbPlJWYzEJK6ETPmEQBt QYJaqb8NQIWhSXNjQoP4QCXmZPVlJHTiQSjaLECrQEE5YTEmIUFiECXwUF7VRbXxIFOoXGolPrAvLBBm MCYkum2ZLYUpIJNuZgG6RJUjIMRjGNMmNUieYEQkTE I2YkN5KSWxUQOsTN1ZDcCmFTEkQQn3VRzzVYFdBGUhza4ETKIoRFBoGHxuXTOqRGOiTFEnVGewZPPvRY A9SIg4BFVjDCApWH1ESyIaLDXjGGV4BZVrIMOhQRUryq3EYUVaZUJeDPM7YEAxVGDkYXFuPUdcEIWuKA X6YMniSGYyOJKcQP3XFoZfBIXwPJL9TTReMFKjKZRx qc1XUFMuACLyANl5LNHqHXNeLYJcGCloIOEqCWF4EHAmXPItYUFrXB4GXpGeWGYfDGP3HPjfCWRaEOAm ys0DMABpPYKsBjW3KCMpNEReORGoOEnqTDEuKNSfYFQ8PHCtVPCgDQ9YGgCiLSWzHjM2YzTySBVyWJIj ml5SDMCwNOStBhS6WQOzTCXwPVMgGPkaXLQfTPE6TG YaGDJsLAUjZO3CGvQdMHRcPdH3ClmmGBFwWQRkpo6YKQGiBVElIua3YaBfCZGbWPPvTUdqGRRoOKA5Ii JfKQGyWSKvPW7HDlScKNViIak0TzzbIMFoATGhfv2DDWWnDQP7CzzgIGGhJUJoOYQdDCoqVVPaZSR4NT WqZOHiTRNhOA1LKrKzXNUjSDr5GCDmPFUhRQFgai0L QIMaMQM2Znt8TSKoGQWyDOGvQNnnAUHiMGO8NUQ0JPXvYFAcHK6VCcDxPBNdCHv4GkAvONXnWNKmad6O OUVhNIT1QOL4DbAyPHEoKNJrAQupJWWoQJY7MkF4NSUeIVNvIY9DZmZdIKWnVsk3ZbDaTLYuCBAzvz9E LUMsJNQ9TEXfNnYmQDXuYKSxDYe0hfQvoFLmNOs9RY 9YK0ChadPpNLGRNf4Ti218DUEkIFVpDa7TH8glKk6sBEDgIASDXi4REYh7UODnJAOzCEQrOYGiF2BnAE SxMNGyCZV3EQL4KgD1GhM+CJnaZJFsEsBeUWWtBUO0SVB7DAF3YNZzErh8WVAzZAQhQB7uEYXBNq1+DQ rjuTOhoGntSUFFCmU2BfG2FRlqCCYIKl6F ID Date Data Source [id number] 02/06/2020 10:00:00 AM EST [facility] Name Value Range Interpretation Code Description Data Beth rce(s) Supporting Document(s) SARS coronavirus 2 RNA [facility] This lab was ordered by [facility] and reported by [facility]. ID Date Data Source [id number] 12/24/2019 02:05:00 PM EDT [facility] ([facility], ) Name Value Range Interpretation Code Description Data Beth rce(s) Supporting Document(s) PDFReport Laboratory test result [facility] ([facility]) FVC-Pred 3.94 L [facility] ([facility], ) FVC-LLN 3.01 L [facility] ([facility], ) FVC-%Pred-Pre 79 L [facility] ([facility], ) FVC-Pre 3.15 L [facility] ([facility], ) Fev1-Pre 1.72 L [facility] ([facility], ) Fev1-%Pred-Pre 61 L [facility] ([facility], ) Fev1-Pred 2.79 L [facility] ([facility], ) Fev1-LLN 2.00 L [facility] ([facility], ) Fev6-Pred 3.67 L [facility] ([facility]) Fev6-Pre 3.05 L [facility] ([facility]) Bpi2rgx-Kake 71 % [facility] ([facility], ) Fev6-LLN 2.76 L [facility] ([facility], ) Hfv9hjq-Ojh 54 % [facility] ([facility]) Fev6-%Pred-Pre 83 L [facility] ([facility], ) Nce7dgb-WJR 61 % [facility] ([facility]) Vhc5leo-Xfpf 93 % [facility] ([facility]) Kor4okh-%Pred-Pre 76 % [facility] ([facility]) FEFMax-Pred 6.98 L/E/sec [facility] ([facility], ) Hzo7lzk-%Pred-Pre 104 % [facility] ([facility]) Gvy1fwa-Ccy 97 % [facility] ([facility]) FEFMax-Pre 3.57 L/E/sec [facility] ([facility]) FEFMax-%Pred-Pre 51 L/E/sec [facility] ([facility]) FEFMax-LLN 4.66 L/E/sec [facility] ([facility], ) Jjb0224-%Pred-Pre 41 L/E/sec [facility] ([facility], ) Acc4435-Ayl 0.78 L/E/sec [facility] ([facility], ) Ykq9063-Jfxi 1.88 L/E/sec [facility] ([facility], ) ExpTime-Pre 9.29 sec [facility] ([facility]) Dxg3819-PYD 0.27 L/E/sec [facility] ([facility], ) Qbq5oxn5-Ptos 76 % [facility] ([facility], ) Fcp4eok3-Bhy 56 % [facility] ([facility], ) Mtp0htf6-VTJ 67 % [facility] ([facility], ) Civ6qcr2-%Pred-Pre 74 % [facility] ([facility]) ID Date Data Source [id number] 12/18/2019 01:40:00 PM EDT [facility] DATE OF EXAMINATION: 12/18/2019 13:06 EDT IMPRESSION: For a detailed report please refer to the software generated [employer]. Electronically signed in PS360 by: Yelena Kendall M.D. 12/18/2019 13:35 EDT Name Value Range Interpretation Code Description Data Beth rce(s) Supporting Document(s) ID Date Data Source [id number] 11/28/2019 12:00:00 AM EDT [facility] Han Willams MD Patient Name: JOSE CRISOSTOMO [id number] [facility] 1935[facility] [address] Date of Exam: 11/28/2019PH#: Fax: [phone] EXAM: MRI LUMBAR SPINE WITHOUT&WITH CONTRASTPROCEDURE INFORMATION:Exam: MR Lumbar Spine Without and With Contrast.Exam date and time: 11/28/2019 10:54 AM Age: 84 years oldClinical indication: Low back pain; Patient HX: Lbp. Only 4cc out of a halfdose of 8cc prohance injected due to the loss of iv access. Multipleattempts to regain access unsuccessful.TECHNIQUE: Imaging protocol: Multiplanar magnetic resonance images of thelumbar spine without and with intravenous contrast. Contrast material:PROHANCE; Contrast volume: 4 ml; Contrast route: INTRAVENOUS (IV);COMPARISON: No relevant prior studies available.FINDINGS:Vertebrae: There is a prominent Schmorl's node along the superior endplateof L3. There is superior endplate depression at L4 with mild loss of heightand associated edema, compatible with acuity. Normal vertebral body heightsare otherwise preserved.Spinal cord: The conus medullaris terminates at T12/L1.L1-L2: There is shallow disc bulging. There is mild facet hypertrophy. Thespinal canal and neural foramina are patent.L2-L3: There is diffuse disc bulging. There is mild facet hypertrophy.There is mild bilateral neural foraminal narrowing.L3-L4: There is shallow disc bulging. There is mild facet hypertrophy. Thespinal canal and neural foramina are patent.L4-L5: There is shallow disc bulging. There is fuch-dp-wiqleqqp facethypertrophy. There is mild bilateral neural foraminal narrowing.L5-S1: There is shallow disc bulging. There is mild facet hypertrophy.There is mild right neural foraminal narrowing.Soft tissues: Unremarkable.Other: The infrarenal aorta is ectatic, measuring up to 2.5 cm. There arenumerous left renal cysts, incompletely imaged.IMPRESSION:1. Suspected acute/subacute L4 superior endplate fracture with mild loss ofheight.2. Degenerative disc disease and spondylosis.Thank you for allowing us to participate in the care of your patient.Dictated and Authenticated by: Jeri Aguirre MD 11/28/2019 2:38 PMEastern Time ([place] & Home)VradV/jmcThank you for referring JOSE CRISOSTOMO to our office. E lectronically Signed - [facility] 11/28/19 15:37 Name Value Range Interpretation Code Description Data Beth rce(s) Supporting Document(s) Procedure Social History Code Duration Value Status Description Data Source(s ) Smoking 12/31/2020 12:00:00 AM EDT - 04/04/2002 12:00:00 AM EST Patient is a former smoker completed Patient is a former smoker [facility] ([facility], ) Smoking 12/22/2020 12:00:00 AM EDT Patient is a former smoker completed Patient is a former smoker [facility] ([facility]) Smoking 12/19/2020 12:00:00 AM EDT Former Smoker completed Former Smoker eCW1 ([facility]) Smoking 12/03/2020 12:00:00 AM EDT Former Smoker completed Former Smoker eCW1 ([facility]) Smoking 12/03/2020 12:00:00 AM EDT Former Smoker completed Former Smoker eCW1 ([facility]) Smoking 11/27/2020 12:00:00 AM EDT Former Smoker completed Former Smoker eCW1 ([facility]) Smoking 09/23/2020 12:00:00 AM EDT Former Smoker completed Former Smoker eCW1 ([facility]) Smoking 09/23/2020 12:00:00 AM EDT Former Smoker completed Former Smoker eCW1 ([facility]) Smoking 09/23/2020 12:00:00 AM EDT Former Smoker completed Former Smoker eCW1 ([facility]) Smoking 09/23/2020 12:00:00 AM EDT Former Smoker completed Former Smoker eCW1 ([facility]) Smoking 09/23/2020 12:00:00 AM EDT Former Smoker completed Former Smoker eCW1 ([facility]) Smoking 09/23/2020 12:00:00 AM EDT Former Smoker completed Former Smoker eCW1 ([facility]) Smoking 09/23/2020 12:00:00 AM EDT Former Smoker completed Former Smoker eCW1 ([facility]) Smoking 09/05/2020 12:00:00 AM EDT Former Smoker completed Former Smoker eCW1 ([facility]) Smoking 09/05/2020 12:00:00 AM EDT Former Smoker completed Former Smoker eCW1 ([facility]) Alcohol intake 07/18/2020 12:00:00 AM EDT Current drinker of al cohol (finding) completed Current drinker of alcohol (finding) [facility] Smoking 06/23/2020 12:00:00 AM EDT Former Smoker completed Former Smoker eCW1 ([facility]) Smoking 06/23/2020 12:00:00 AM EDT Former Smoker completed Former Smoker eCW1 ([facility]) Smoking 06/23/2020 12:00:00 AM EDT Former Smoker completed Former Smoker eCW1 ([facility]) Smoking 06/23/2020 12:00:00 AM EDT Former Smoker completed Former Smoker eCW1 ([facility]) Smoking 06/23/2020 12:00:00 AM EDT Former Smoker completed Former Smoker eCW1 ([facility]) Smoking 06/23/2020 12:00:00 AM EDT Former Smoker completed Former Smoker eCW1 ([facility]) Smoking 06/23/2020 12:00:00 AM EDT Former Smoker completed Former Smoker eCW1 ([facility]) Smoking 06/23/2020 12:00:00 AM EDT Former Smoker completed Former Smoker eCW1 ([facility]) Smoking 06/23/2020 12:00:00 AM EDT Former Smoker completed Former Smoker eCW1 ([facility]) Smoking 06/23/2020 12:00:00 AM EDT Former Smoker completed Former Smoker eCW1 ([facility]) Smoking 06/23/2020 12:00:00 AM EDT Former Smoker completed Former Smoker eCW1 ([facility]) Alcohol intake 05/31/2020 12:00:00 AM EST Current drinker of al cohol (finding) completed Current drinker of alcohol (finding) [facility] Tobacco use and exposure 05/31/2020 12:00:00 AM EST Never used co mpleted Never used [facility] Cigarette pack-years 05/31/2020 12:00:00 AM EST UNK completed [facility] Cigarettes smoked current (pack per day) - Reported 05/31/19 12:00:00 AM EST UNK [facility] Sm[facility] 05/31/2020 12:00:00 AM EST Former smoker completed Former smoker [facility] Smoking 05/22/2020 12:00:00 AM EST Former Smoker completed Former Smoker eCW1 ([facility]) Smoking 05/22/2020 12:00:00 AM EST Former Smoker completed Former Smoker eCW1 ([facility]) Smoking 05/22/2020 12:00:00 AM EST Former Smoker completed Former Smoker eCW1 ([facility]) Smoking 05/22/2020 12:00:00 AM EST Former Smoker completed Former Smoker eCW1 ([facility]) Smoking 05/22/2020 12:00:00 AM EST Former Smoker completed Former Smoker eCW1 ([facility]) Smoking 05/16/2020 12:00:00 AM EST Former Smoker completed Former Smoker eCW1 ([facility]) Smoking 03/14/2020 12:00:00 AM EST Former Smoker completed Former Smoker eCW1 ([facility]) Smoking 03/06/2020 12:00:00 AM EST Former Smoker completed Former Smoker eCW1 ([facility]) Smoking 03/06/2020 12:00:00 AM EST Former Smoker completed Former Smoker eCW1 ([facility]) Smoking 03/06/2020 12:00:00 AM EST Former Smoker completed Former Smoker eCW1 ([facility]) Smoking 03/06/2020 12:00:00 AM EST Former Smoker completed Former Smoker eCW1 ([facility]) Smoking 02/21/2020 12:00:00 AM EST Former Smoker completed Former Smoker eCW1 ([facility]) Smoking 02/01/2020 12:00:00 AM EDT Former Smoker completed Former Smoker eCW1 ([facility]) Smoking 02/01/2020 12:00:00 AM EDT Former Smoker completed Former Smoker eCW1 ([facility]) Smoking 02/01/2020 12:00:00 AM EDT Former Smoker completed Former Smoker eCW1 ([facility]) Smoking 01/17/2020 12:00:00 AM EDT Former Smoker completed Former Smoker eCW1 ([facility]) Smoking 01/17/2020 12:00:00 AM EDT Former Smoker completed Former Smoker eCW1 ([facility]) Smoking 01/17/2020 12:00:00 AM EDT Former Smoker completed Former Smoker eCW1 ([facility]) Smoking 01/17/2020 12:00:00 AM EDT Former Smoker completed Former Smoker eCW1 ([facility]) Smoking 01/10/2020 12:00:00 AM EDT Former Smoker completed Former Smoker eCW1 ([facility]) Vital Signs ID Date Data Source UNK Name Value Range Interpretation Code Description Data Source(s) Systolic blood pressure 130 mm[Hg] 130 mm[Hg] M [facility] ([facility]) Diastolic blood pressure 80 mm[Hg] 80 mm[Hg] [place] ([facility]) Body mass index (BMI) [Ratio] 22.2 kg/m2 22.2 k g/m2 [place] ([facility]) Cora body weight 166 [lb_av] 166 [lb_av[facility] Heart rate 61 /min 61 /min [place] ([facility]) Oxygen saturation in Arterial blood by Pulse oximetry 99 % 99 % [place] ([facility]) Body height 70 [in_i] 70 [in_i] [place] ([facility]) 5'10" Body weight 155.00 [lb_av] 155.00 [lb_av] [facility] T ([facility]) Body weight 70.308 kg 70.308 kg [place] ([facility]) Body surface area Derived from formula 1.87 m2 1.87 m2 [place] ([facility]) Body mass index (BMI) [Ratio] 21.8 kg/m2 21.8 k g/m2 [place] ([facility]) Systolic blood pressure 122 mm[Hg] 122 mm[Hg] M [facility] ([facility]) Diastolic blood pressure 70 mm[Hg] 70 mm[Hg] [facility] ([facility]) Body height 71 [in_i] 71 [in_i] [facility] ([facility]) 5'11" Body weight 156.00 [lb_av] 156.00 [lb_av] [facility] T ([facility] ) Oxygen saturation in Arterial blood by Pulse oximetry 96 % 96 % [facility] ([facility]) Heart rate 68 /min 68 /min [facility] ([facility]) Body weight 154.12 [lb_av] 154.12 [lb_av] eCW1 ([facility]) Body height [in_i] eCW1 ([facility]) Body mass index (BMI) [Ratio] 21.49 kg/m2 21.49 kg/m2 W1 ([facility]) Heart rate 70 /min 70 /min eCW1 ([facility]) Respiratory rate 18 /min 18 /min eCW1 ([facility]) Body temperature 98 [degF] 98 [degF] eCW1 ([facility]) Systolic blood pressure 129 mm[Hg] 129 mm[Hg] e CW1 ([facility]) Diastolic blood pressure 76 mm[Hg] 76 mm[Hg] eCW1 ([facility]) Body weight 160 [lb_av] 160 [lb_av] eCW1 ([facility]) Body weight 72.58 kg 72.58 kg eCW1 ([facility]) Body height [in_i] eCW1 ([facility]) Body mass index (BMI) [Ratio] 22.31 kg/m2 22.31 kg/m2 eCW1 ([facility]) Systolic blood pressure 148 mm[Hg] 148 mm[Hg] e CW1 ([facility]) Diastolic blood pressure 68 mm[Hg] 68 mm[Hg] eCW1 ([facility]) Body weight 160 [lb_av] 160 [lb_av] eCW1 ([facility]) Body weight 72.58 kg 72.58 kg eCW1 ([facility]) Body height [in_i] eCW1 ([facility]) Body mass index (BMI) [Ratio] 22.31 kg/m2 22.31 kg/m2 eCW1 ([facility]) Systolic blood pressure 128 mm[Hg] 128 mm[Hg] e CW1 ([facility]) Diastolic blood pressure 74 mm[Hg] 74 mm[Hg] eCW1 ([facility]) Systolic blood pressure 156 mm[Hg] 156 mm[Hg] [facility] Diastolic blood pressure 77 mm[Hg] 77 mm[Hg] [place] ([facility]) Heart rate 59 /min 59 /min [place] ([facility]) Body temperature 98.2 [degF] 98.2 [degF] [place] ([facility]) Body weight 70.308 kg 70.308 kg [place] ([facility]) Body height 70 [in_i] 70 [in_i] [place] ([facility]) 5'10" Body weight 155.00 [lb_av] 155.00 [lb_av] [facility] T ([facility]) Body mass index (BMI) [Ratio] 22.2 kg/m2 22.2 k g/m2 [place] ([facility]) Cora body weight 166 [lb_av] 166 [lb_av] [facility] T ([facility]) Body surface area Derived from formula 1.87 m2 1.87 m2 [place] ([facility]) Body weight 155.00 [lb_av] 155.00 [lb_av] MED[facility] T ([facility]) Body height 71 [in_i] 71 [in_i] [facility] ([facility]) 5'11" Body mass index (BMI) [Ratio] 21.6 kg/m2 21.6 k g/m2 [place] ([facility]) Systolic blood pressure 130 mm[Hg] 130 mm[Hg] M [facility] ([facility]) Body weight 155.00 [lb_av] 155.00 [lb_av] [facility] T ([facility]) Body height 71 [in_i] 71 [in_i] [facility] ([facility]) 5'11" Body mass index (BMI) [Ratio] 21.6 kg/m2 21.6 k g/m2 [facility] ([facility]) Diastolic blood pressure 70 mm[Hg] 70 mm[Hg] [facility] ([facility]) Body weight 160 [lb_av] 160 [lb_av] eCW1 ([facility]) Body height [in_i] eCW1 ([facility]) Body mass index (BMI) [Ratio] 22.31 kg/m2 22.31 kg/m2 eCW1 ([facility]) Heart rate 67 /min 67 /min eCW1 ([facility]) Respiratory rate 20 /min 20 /min eCW1 ([facility]) Body temperature 96.9 [degF] 96.9 [degF] eCW1 ( [facility]) Systolic blood pressure 122 mm[Hg] 122 mm[Hg] e CW1 ([facility]) Diastolic blood pressure 78 mm[Hg] 78 mm[Hg] eCW1 ([facility]) Body weight 160.00 [lb_av] 160.00 [lb_av] MEDEN T ([facility]) Respiratory rate 17 /min 17 /min [facility] ( [facility]) Systolic blood pressure 112 mm[Hg] 112 mm[Hg] M [facility]ENT ([facility]) Diastolic blood pressure 62 mm[Hg] 62 mm[Hg] [facility] ([facility]) Body weight 160.00 [lb_av] 160.00 [lb_av] MED[facility] T ([facility]) Respiratory rate 17 /min 17 /min [facility] ( [facility]) Body weight 160 [lb_av] 160 [lb_av] eCW1 ([facility]) Body height [in_i] eCW1 ([facility]) Body mass index (BMI) [Ratio] 22.31 kg/m2 22.31 kg/m2 eCW1 ([facility]) Heart rate 72 /min 72 /min eCW1 ([facility]) Respiratory rate 18 /min 18 /min [facility]1 ([facility] [facility]) Body temperature 98.0 [degF] 98.0 [degF] eCW1 ( [facility]) Systolic blood pressure 130 mm[Hg] 130 mm[Hg] e CW1 ([facility]) Diastolic blood pressure 78 mm[Hg] 78 mm[Hg] eCW1 ([facility]) Systolic blood pressure 140 mm[Hg] 140 mm[Hg] M EDENT ([facility] ) Body weight 164.25 [lb_av] 164.25 [lb_av] MEDEN T ([facility] ) Oxygen saturation in Arterial blood by Pulse oximetry 96 % 96 % MEDENT ([facility] ) Diastolic blood pressure 100 mm[Hg] 100 mm[Hg] MEDENT ([facility] ) Body mass index (BMI) [Ratio] 22.9 kg/m2 22.9 k g/m2 MEDENT ([facility] ) Heart rate 70 /min 70 /min MEDENT ([facility] ) Body temperature 96.9 [degF] 96.9 [degF] MEDENT ([facility]) Body height 71 [in_i] 71 [in_i] MEDENT ([facility]) 5'11" Systolic blood pressure 132 mm[Hg] 132 mm[Hg] [facility] Diastolic blood pressure 70 mm[Hg] 70 mm[Hg] [facility] Heart rate 74 /min 74 /min [facility] Body height 177.8 cm 177.8 cm [facility] Body weight 74.39 kg 74.39 kg [facility] Body mass index (BMI) [Ratio] 23.53 kg/m2 23.53 kg/m2 [facility] Oxygen saturation in Arterial blood by Pulse oximetry 98 % 98 % [facility] Oxygen saturation in Arterial blood by Pulse oximetry 93 % 93 % MEDENT ([facility] ) Body height 70 [in_i] 70 [in_i] MEDENT ([facility] ) 5'10" Body weight 164.00 [lb_av] 164.00 [lb_av] MEDEN T ([facility] ) Body mass index (BMI) [Ratio] 23.5 kg/m2 23.5 k g/m2 MEDENT ([facility]) [place] body weight 166 [lb_av] 166 [lb_av] MEDEN T ([facility]) Body weight 74.390 kg 74.390 kg [place] ([facility]) Body surface area Derived from formula 1.92 m2 1.92 m2 [place] ([facility]) Systolic blood pressure 126 mm[Hg] 126 mm[Hg] M EDENT ([facility]) Diastolic blood pressure 78 mm[Hg] 78 mm[Hg] [place] ([facility]) Heart rate 67 /min 67 /min [place] ([facility]) Oxygen saturation in Arterial blood by Pulse oximetry 93 % 93 % [place] ([facility]) Body height 70 [in_i] 70 [in_i] [place] ([facility]) 5'10" Body weight 164.00 [lb_av] 164.00 [lb_av] MEDEN T ([facility]) Body mass index (BMI) [Ratio] 23.5 kg/m2 23.5 k g/m2 [place] ([facility]) [place] body weight 166 [lb_av] 166 [lb_av] MEDEN T ([facility]) Body weight 74.390 kg 74.390 kg [place] ([facility]) Body surface area Derived from formula 1.92 m2 1.92 m2 [facility] Body weight 162 [lb_av] 162 [lb_av] eCW1 ([facility]) Body height [in_i] eCW1 ([facility]) Body mass index (BMI) [Ratio] 22.59 kg/m2 22.59 kg/m2 eCW1 ([facility]) Heart rate 66 /min 66 /min eCW1 ([facility]) Respiratory rate 18 /min 18 /min eCW1 ([facility]) Body temperature 98.8 [degF] 98.8 [degF] eCW1 ( [facility]) Systolic blood pressure 128 mm[Hg] 128 mm[Hg] e CW1 ([facility]) Diastolic blood pressure 78 mm[Hg] 78 mm[Hg] eCW1 ([facility]) Body weight 162.4 [lb_av] 162.4 [lb_av] eCW1 ([facility]) Body height [in_i] eCW1 ([facility]) Body mass index (BMI) [Ratio] 22.65 kg/m2 22.65 kg/m2 eCW1 ([facility]) Heart rate 90 /min 90 /min eCW1 ([facility]) Respiratory rate 18 /min 18 /min eCW1 ([facility]) Body temperature 97.8 [degF] 97.8 [degF] eCW1 ( [facility]) Systolic blood pressure 158 mm[Hg] 158 mm[Hg] e CW1 ([facility]) Diastolic blood pressure 72 mm[Hg] 72 mm[Hg] eCW1 ([facility]) Body weight 170.10 [lb_av] 170.10 [lb_av] eCW1 ([facility]) Body height [in_i] eCW1 ([facility]) Body mass index (BMI) [Ratio] 23.72 kg/m2 23.72 kg/m2 eCW1 ([facility]) Heart rate 76 /min 76 /min eCW1 ([facility]) Respiratory rate 18 /min 18 /min eCW1 ([facility]) Body temperature 98.2 [degF] 98.2 [degF] eCW1 ( [facility]) Systolic blood pressure 194 mm[Hg] 194 mm[Hg] e CW1 ([facility]) Diastolic blood pressure 98 mm[Hg] 98 mm[Hg] eCW1 ([facility]) Body weight 170 [lb_av] 170 [lb_av] eCW1 ([facility]) Body height [in_i] eCW1 ([facility]) Respiratory rate 18 /min 18 /min eCW1 ([facility]) Body mass index (BMI) [Ratio] 23.71 kg/m2 23.71 kg/m2 eCW1 ([facility]) Body temperature 98.8 [degF] 98.8 [degF] eCW1 ( [facility]) Systolic blood pressure 153 mm[Hg] 153 mm[Hg] e CW1 ([facility]) Heart rate 76 /min 76 /min eCW1 ([facility]) Diastolic blood pressure 77 mm[Hg] 77 mm[Hg] eCW1 ([facility]) Body temperature 96.4 [degF] 96.4 [degF] MEDENT ([facility]) Body height 71 [in_i] 71 [in_i] MEDENT ([facility]) 5'11" Body mass index (BMI) [Ratio] 24.4 kg/m2 24.4 k g/m2 MEDENT ([facility]) Systolic blood pressure 130 mm[Hg] 130 mm[Hg] M EDENT ([facility]) Diastolic blood pressure 86 mm[Hg] 86 mm[Hg] MEDENT ([facility]) Heart rate 72 /min 72 /min MEDENT ([facility]) Body weight 175.25 [lb_av] 175.25 [lb_av] MEDEN T ([facility]) Oxygen saturation in Arterial blood by Pulse oximetry 96 % 96 % MEDENT ([facility]) Heart rate 67 /min 67 /min eCW1 ([facility]) Respiratory rate 18 /min 18 /min eCW1 ([facility]) Body temperature 98.4 [degF] 98.4 [degF] eCW1 ( [facility]) Systolic blood pressure 144 mm[Hg] 144 mm[Hg] e CW1 ([facility]) Diastolic blood pressure 69 mm[Hg] 69 mm[Hg] eCW1 ([facility]) Body weight 170 [lb_av] 170 [lb_av] eCW1 ([facility]) Body weight kg eCW1 ([facility]) Body height [in_i] eCW1 ([facility]) Body mass index (BMI) [Ratio] 23.71 kg/m2 23.71 kg/m2 eCW1 ([facility]) Body weight 170 [lb_av] 170 [lb_av] eCW1 ([facility]) Body weight kg eCW1 ([facility]) Body height [in_i] eCW1 ([facility]) Body mass index (BMI) [Ratio] 23.71 kg/m2 23.71 kg/m2 eCW1 ([facility]) Heart rate 61 /min 61 /min eCW1 ([facility]) Respiratory rate 20 /min 20 /min eCW1 ([facility]) Body temperature 97 [degF] 97 [degF] eCW1 ([facility]) Systolic blood pressure 159 mm[Hg] 159 mm[Hg] e CW1 ([facility]) Diastolic blood pressure 72 mm[Hg] 72 mm[Hg] eCW1 ([facility]) Body weight 170 [lb_av] 170 [lb_av] eCW1 ([facility]) Body weight kg eCW1 ([facility]) Body height [in_i] eCW1 ([facility]) Body mass index (BMI) [Ratio] 23.71 kg/m2 23.71 kg/m2 eCW1 ([facility]) Heart rate 70 /min 70 /min eCW1 ([facility]) Respiratory rate 18 /min 18 /min eCW1 ([facility]) Body temperature 98.4 [degF] 98.4 [degF] eCW1 ( [facility]) Systolic blood pressure 157 mm[Hg] 157 mm[Hg] e CW1 ([facility]) Diastolic blood pressure 69 mm[Hg] 69 mm[Hg] eCW1 ([facility]) Body weight 170 [lb_av] 170 [lb_av] eCW1 ([facility]) Body weight kg eCW1 ([facility]) Body height [in_i] eCW1 ([facility]) Body mass index (BMI) [Ratio] 23.71 kg/m2 23.71 kg/m2 eCW1 ([facility]) Heart rate 68 /min 68 /min eCW1 ([facility]) Respiratory rate 16 /min 16 /min eCW1 ([facility]) Body temperature 96.7 [degF] 96.7 [degF] eCW1 ( [facility]) Systolic blood pressure 172 mm[Hg] 172 mm[Hg] e CW1 ([facility]) Diastolic blood pressure 77 mm[Hg] 77 mm[Hg] eCW1 ([facility]) Body weight 170.4 [lb_av] 170.4 [lb_av] eCW1 ([facility]) Body height [in_i] eCW1 ([facility]) Body mass index (BMI) [Ratio] 23.76 kg/m2 23.76 kg/m2 eCW1 ([facility]) Heart rate 75 /min 75 /min eCW1 ([facility]) Respiratory rate 20 /min 20 /min eCW1 ([facility]) Body temperature 98.3 [degF] 98.3 [degF] eCW1 ( [facility]) Systolic blood pressure 160 mm[Hg] 160 mm[Hg] e CW1 ([facility]) Diastolic blood pressure 75 mm[Hg] 75 mm[Hg] eCW1 ([facility]) Body weight 172 [lb_av] 172 [lb_av] eCW1 ([facility]) Body weight kg eCW1 ([facility]) Body height [in_i] eCW1 ([facility]) Body mass index (BMI) [Ratio] 23.99 kg/m2 23.99 kg/m2 eCW1 ([facility]) Heart rate 86 /min 86 /min eCW1 ([facility]) Respiratory rate 18 /min 18 /min eCW1 ([facility]) Body temperature 97.7 [degF] 97.7 [degF] eCW1 ( [facility]) Systolic blood pressure 118 mm[Hg] 118 mm[Hg] e CW1 ([facility]) Diastolic blood pressure 86 mm[Hg] 86 mm[Hg] eCW1 ([facility]) Body weight 172 [lb_av] 172 [lb_av] eCW1 ([facility]) Body weight kg eCW1 ([facility]) Body height 71 [in_i] 71 [in_i] eCW1 ([facility]) Body mass index (BMI) [Ratio] 23.99 kg/m2 23.99 kg/m2 eCW1 ([facility]) Heart rate 77 /min 77 /min eCW1 ([facility]) Respiratory rate 18 /min 18 /min eCW1 ([facility]) Body temperature 97.5 [degF] 97.5 [degF] eCW1 ( [facility]) Systolic blood pressure 149 mm[Hg] 149 mm[Hg] e CW1 ([facility]) Diastolic blood pressure 70 mm[Hg] 70 mm[Hg] eCW1 ([facility]) Body weight 172 [lb_av] 172 [lb_av] eCW1 ([facility]) Body height 71 [in_i] 71 [in_i] eCW1 ([facility]) Body mass index (BMI) [Ratio] 23.99 kg/m2 23.99 kg/m2 eCW1 ([facility]) Heart rate 73 /min 73 /min eCW1 ([facility]) Respiratory rate 19 /min 19 /min eCW1 ([facility]) Body temperature 97.9 [degF] 97.9 [degF] eCW1 ( [facility]) Systolic blood pressure 154 mm[Hg] 154 mm[Hg] e CW1 ([facility]) Diastolic blood pressure 96 mm[Hg] 96 mm[Hg] eCW1 ([facility]) Body weight 170 [lb_av] 170 [lb_av] eCW1 ([facility]) Body weight kg eCW1 ([facility]) Body height [in_i] eCW1 ([facility]) Body mass index (BMI) [Ratio] 23.71 kg/m2 23.71 kg/m2 eCW1 ([facility]) Heart rate 80 /min 80 /min eCW1 ([facility]) Respiratory rate 20 /min 20 /min eCW1 ([facility]) Body temperature 97 [degF] 97 [degF] eCW1 ([facility]) Systolic blood pressure 192 mm[Hg] 192 mm[Hg] e CW1 ([facility]) Diastolic blood pressure 91 mm[Hg] 91 mm[Hg] eCW1 ([facility]) Body weight 1609 [lb_av] 1609 [lb_av] eCW1 ([facility]) Body height [in_i] eCW1 ([facility]) Body mass index (BMI) [Ratio] 224.39 kg/m2 224. 39 kg/m2 eCW1 ([facility]) Heart rate 72 /min 72 /min eCW1 ([facility]) Respiratory rate 20 /min 20 /min eCW1 ([facility]) Body temperature 97.5 [degF] 97.5 [degF] eCW1 ( [facility]) Systolic blood pressure 196 mm[Hg] 196 mm[Hg] e CW1 ([facility]) Diastolic blood pressure 88 mm[Hg] 88 mm[Hg] eCW1 ([facility]) Body mass index (BMI) [Ratio] 24.1 kg/m2 24.1 k g/m2 MEDENT ([facility] ) [place] body weight 166 [lb_av] 166 [lb_av] MEDEN T ([facility] ) Systolic blood pressure 143 mm[Hg] 143 mm[Hg] M EDENT ([facility] ) Diastolic blood pressure 75 mm[Hg] 75 mm[Hg] MEDENT ([facility] ) Heart rate 68 /min 68 /min MEDENT ([facility] ) Body height 70 [in_i] 70 [in_i] MEDENT ([facility]) 5'10" Body weight 168.25 [lb_av] 168.25 [lb_av] MEDEN T ([facility]) Body weight 76.318 kg 76.318 kg [place] ([facility]) Body surface area Derived from formula 1.94 m2 1.94 m2 [place] ([facility]) Systolic blood pressure 122 mm[Hg] 122 mm[Hg] M [facility] ([facility]) Body weight 170.00 [lb_av] 170.00 [lb_av] MEDEN T ([facility]) Body mass index (BMI) [Ratio] 24.4 kg/m2 24.4 k g/m2 [place] ([facility]) Diastolic blood pressure 72 mm[Hg] 72 mm[Hg] [place] ([facility]) Heart rate 72 /min 72 /min [place] ([facility]) Oxygen saturation in Arterial blood by Pulse oximetry 97 % 97 % [place] ([facility]) Room Air [place] body weight 166 [lb_av] 166 [lb_av] MEDEN T ([facility]) Body temperature 98.2 [degF] 98.2 [degF] [place] ([facility]) Body height 70 [in_i] 70 [in_i] [facility] ([facility]) 5'10" Body weight 77.112 kg 77.112 kg [place] ([facility]) Diastolic blood pressure 72 mm[Hg] 72 mm[Hg] [place] ([facility]) Body height 70 [in_i] 70 [in_i] [facility] ([facility]) 5'10" Body weight 77.112 kg 77.112 kg [place] ([facility]) Body weight 170.00 [lb_av] 170.00 [lb_av] MEDEN T ([facility]) Body mass index (BMI) [Ratio] 24.4 kg/m2 24.4 k g/m2 [place] ([facility]) Systolic blood pressure 134 mm[Hg] 134 mm[Hg] [facility] ID Date Data Source [id number] 06/20/2020 01:15:58 PM EDT [facility] Name Value Range Interpretation Code Description Data Source(s) WEIGHT RECORDED 172.62 lb 172.62 lb [facility] WEIGHT RECORDED 172.18 lb 172.18 lb [facility] WEIGHT RECORDED 173.28 lb 173.28 lb [facility] WEIGHT RECORDED 166.45 lb 166.45 lb [facility] Body height Measured 71 in 71 in [facility] TRANSFER FROM [facility] Patient Treatment Plan of Care Planned Activity Planned Date Details Description Data Source (s) Nystatin [id number] UNT/ML Oral Suspension 12/19/2020 12:00:00 AM EDT eCW ([facility]) Clindamycin 300 MG Oral Capsule 12/03/2020 12:00:00 AM EDT eCW1 ([facility]) Clindamycin 300 MG Oral Capsule 12/03/2020 12:00:00 AM EDT eCW1 ([facility]) May Have - 10/15/2020 12:00:00 AM EDT e CW1 ([facility]) May Have - 10/15/2020 12:00:00 AM EDT e CW1 ([facility]) May Have - 10/15/2020 12:00:00 AM EDT e CW1 ([facility]) May Have - 10/15/2020 12:00:00 AM EDT e CW1 ([facility]) May Have - 10/15/2020 12:00:00 AM EDT e CW1 ([facility]) May Have - 10/15/2020 12:00:00 AM EDT e CW1 ([facility]) Mirtazapine 15 MG Oral Tablet 08/06/2020 12:00:00 AM EDT eCW1 ([facility]) Mirtazapine 15 MG Oral Tablet 08/06/2020 12:00:00 AM EDT eCW1 ([facility]) Mirtazapine 15 MG Oral Tablet 08/06/2020 12:00:00 AM EDT eCW1 ([facility]) Terazosin 5 MG Oral Capsule 07/24/2020 12:00:00 AM EDT eCW1 ([facility]) Terazosin 5 MG Oral Capsule 07/24/2020 12:00:00 AM EDT eCW1 ([facility]) Terazosin 5 MG Oral Capsule 07/24/2020 12:00:00 AM EDT eCW1 ([facility]) Terazosin 5 MG Oral Capsule 07/24/2020 12:00:00 AM EDT eCW1 ([facility]) Terazosin 5 MG Oral Capsule 07/24/2020 12:00:00 AM EDT eCW1 ([facility]) Terazosin 5 MG Oral Capsule 07/24/2020 12:00:00 AM EDT eCW1 ([facility]) quetiapine 25 MG Oral Tablet 07/09/2020 12:00:00 AM EDT [facility] Propranolol Hydrochloride 10 MG Oral Tablet 07/09/2020 12:00:00 AM EDT [facility] Hannah-Bid Probiotic - 07/08/2020 12:00:00 AM EDT eCW1 ([facility]) Hannah-Bid Probiotic - 07/08/2020 12:00:00 AM EDT eCW1 ([facility]) Hannah-Bid Probiotic - 07/08/2020 12:00:00 AM EDT eCW1 ([facility]) Hannah-Bid Probiotic - 07/08/2020 12:00:00 AM EDT eCW1 ([facility]) Hannah-Bid Probiotic - 07/08/2020 12:00:00 AM EDT eCW1 ([facility]) Hannah-Bid Probiotic - 07/08/2020 12:00:00 AM EDT eCW1 ([facility]) Hannah-Bid Probiotic - 07/08/2020 12:00:00 AM EDT eCW1 ([facility]) Hannah-Bid Probiotic - 07/08/2020 12:00:00 AM EDT eCW1 ([facility]) Hannah-Bid Probiotic - 07/08/2020 12:00:00 AM EDT eCW1 ([facility]) Hannah-Bid Probiotic - 07/08/2020 12:00:00 AM EDT eCW1 ([facility]) Hannah-Bid Probiotic - 07/08/2020 12:00:00 AM EDT eCW1 ([facility]) Terazosin 5 MG Oral Capsule 06/24/2020 12:00:00 AM EDT [facility] Terazosin 5 MG Oral Capsule 06/23/2020 12:00:00 AM EDT eCW1 ([facility]) Terazosin 5 MG Oral Capsule 06/23/2020 12:00:00 AM EDT eCW1 ([facility]) Terazosin 5 MG Oral Capsule 06/23/2020 12:00:00 AM EDT eCW1 ([facility]) Terazosin 5 MG Oral Capsule 06/23/2020 12:00:00 AM EDT eCW1 ([facility]) Terazosin 5 MG Oral Capsule 06/23/2020 12:00:00 AM EDT eCW1 ([facility]) Terazosin 5 MG Oral Capsule 06/23/2020 12:00:00 AM EDT eCW1 ([facility]) Terazosin 5 MG Oral Capsule 06/23/2020 12:00:00 AM EDT eCW1 ([facility]) Terazosin 5 MG Oral Capsule 06/23/2020 12:00:00 AM EDT eCW1 ([facility]) Terazosin 5 MG Oral Capsule 06/23/2020 12:00:00 AM EDT eCW1 ([facility]) Terazosin 5 MG Oral Capsule 06/23/2020 12:00:00 AM EDT eCW1 ([facility]) Terazosin 5 MG Oral Capsule 06/23/2020 12:00:00 AM EDT eCW1 ([facility]) clopidogrel 75 MG Oral Tablet 06/11/2020 12:00:00 AM [facility] atorvastatin 40 MG Oral Tablet 06/11/2020 12:00:00 AM [facility] clopidogrel 75 MG Oral Tablet 06/07/2020 12:00:00 AM [facility] Amlodipine 5 MG Oral Tablet 06/06/2020 12:00:00 AM [facility] pantoprazole 40 MG Delayed Release Oral Tablet 06/06/2020 12:00:00 AM [facility] atorvastatin 40 MG Oral Tablet 06/06/2020 12:00:00 AM [facility] quetiapine 25 MG Oral Tablet 06/05/2020 10[facility]6 [facility] Oral Tablet 06/05/2020 12:00:00 AM [facility] Glucose 0.417 MG/MG Oral Gel 06/05/2020 12:00:00 AM [facility] Benzocaine 15 MG / Menthol 3.6 MG Oral Lozenge 06/05/2020 12:00:00 AM [facility] Benzocaine 15 MG / Menthol 3.6 MG Oral Lozenge 06/05/2020 12:00:00 AM [facility] Bisacodyl 10 MG Rectal Suppository 06/05/2020 12:00:00 AM [facility] Glucose 0.417 MG/MG Oral Gel 06/05/2020 12:00:00 AM [facility] Docusate Sodium 100 MG Oral Capsule 06/05/2020 12:00:00 AM [facility], PRISON 8.6 MG Oral Tablet 06/05/2020 12:00:00 AM [facility] quetiapine 25 MG Oral Tablet 06/05/2020 12:00:00 AM [facility] Propranolol Hydrochloride 10 MG Oral Tablet 06/05/2020 12:00:00 AM [facility], PRISON 35.2 MG/ML Oral Solution 06/03/2020 01:12:35 AM [facility] Bisacodyl 10 MG Rectal Suppository 06/03/2020 01:12:35 AM [facility] Benzocaine 15 MG / Menthol 3.6 MG Oral Lozenge 05/31/2020 03:51:37 PM [facility] dextrose 50 % IV solution 25 mL 05/31/2020 03:53:07 AM [facility] Glucagon 1 MG Injection 05/31/2020 03:53:07 AM [facility] Glucose 0.417 MG/MG Oral Gel 05/31/2020 03:53:07 AM [facility] Doxycycline Monohydrate 100 MG Oral Capsule 05/26/2020 12:00:00 AM [facility] doxycycline hyclate 100 MG Oral Capsule 05/26/2020 12:00:00 AM [facility] Doxycycline Monohydrate 100 MG Oral Capsule 05/22/2020 12:00:00 AM EST eCW1 ([facility]) Doxycycline Monohydrate 100 MG Oral Capsule 05/22/2020 12:00:00 AM EST eCW1 ([facility]) Doxycycline Monohydrate 100 MG Oral Capsule 05/22/2020 12:00:00 AM EST eCW1 ([facility]) Doxycycline Monohydrate 100 MG Oral Capsule 05/22/2020 12:00:00 AM EST eCW1 ([facility]) Doxycycline Monohydrate 100 MG Oral Capsule 05/22/2020 12:00:00 AM EST eCW1 ([facility]) Flonase Allergy Relief 50 MCG/ACT 05/16/2020 12:00:00 AM EST eCW1 ([facility]) Flonase Allergy Relief 50 MCG/ACT 05/16/2020 12:00:00 AM EST eCW1 ([facility]) fluticasone (FLONASE) 50 MCG/ACT nasal spray 05/16/2020 12:00:00 AM EST [facility] Flonase Allergy Relief 50 MCG/ACT 05/16/2020 12:00:00 AM EST eCW1 ([facility]) Flonase Allergy Relief 50 MCG/ACT 05/16/2020 12:00:00 AM EST eCW1 ([facility]) Flonase Allergy Relief 50 MCG/ACT 05/16/2020 12:00:00 AM EST eCW1 ([facility]) Flonase Allergy Relief 50 MCG/ACT 05/16/2020 12:00:00 AM EST eCW1 ([facility]) Flonase Allergy Relief 50 MCG/ACT 05/16/2020 12:00:00 AM EST eCW1 ([facility]) Flonase Allergy Relief 50 MCG/ACT 05/16/2020 12:00:00 AM EST eCW1 ([facility]) Budesonide 3 MG Delayed Release Oral Capsule 04/29/2020 12:00:00 AM EST [facility] 12 HR Guaifenesin 600 MG Extended Release Oral Tablet [Mucinex] 02/01/2020 12:00:00 AM EDT eCW1 ([facility]) 12 HR Guaifenesin 600 MG Extended Release Oral Tablet [Mucinex] 02/01/2020 12:00:00 AM EDT eCW1 ([facility]) 12 HR Guaifenesin 600 MG Extended Release Oral Tablet [Mucinex] 02/01/2020 12:00:00 AM EDT eCW1 ([facility]) 12 HR Guaifenesin 600 MG Extended Release Oral Tablet [Mucinex] 02/01/2020 12:00:00 AM EDT eCW1 ([facility]) 12 HR Guaifenesin 600 MG Extended Release Oral Tablet [Mucinex] 02/01/2020 12:00:00 AM EDT eCW1 ([facility]) 12 HR Guaifenesin 600 MG Extended Release Oral Tablet [Mucinex] 02/01/2020 12:00:00 AM EDT eCW1 ([facility]) 12 HR Guaifenesin 600 MG Extended Release Oral Tablet [Mucinex] 02/01/2020 12:00:00 AM EDT eCW1 ([facility]) 12 HR Guaifenesin 600 MG Extended Release Oral Tablet [Mucinex] 02/01/2020 12:00:00 AM EDT eCW1 ([facility]) doxycycline hyclate 100 MG Oral Tablet 02/01/2020 12:00:00 AM EDT eCW1 ([facility]) 12 HR Guaifenesin 600 MG Extended Release Oral Tablet [Mucinex] 02/01/2020 12:00:00 AM EDT eCW1 ([facility]) doxycycline hyclate 100 MG Oral Tablet 02/01/2020 12:00:00 AM EDT eCW1 ([facility]) 12 HR Guaifenesin 600 MG Extended Release Oral Tablet [Mucinex] 02/01/2020 12:00:00 AM EDT eCW1 ([facility]) doxycycline hyclate 100 MG Oral Tablet 02/01/2020 12:00:00 AM EDT eCW1 ([facility]) 12 HR Guaifenesin 600 MG Extended Release Oral Tablet [Mucinex] 02/01/2020 12:00:00 AM EDT eCW1 ([facility]) Acetaminophen 300 MG / Codeine Phosphate 30 MG Oral Ta blet 11/22/2019 12:00:00 AM EDT [facility] sitagliptin 50 MG Oral Tablet [Januvia] 09/25/2019 12:00:00 AM EDT [facility] 7 ACTUAT umeclidinium 0.0625 MG/ACTUAT Dry Powder Inha ler [Incruse] 07/20/2019 12:00:00 AM EDT [facility] Doxepin Hydrochloride 50 MG Oral Capsule 02/03/2019 12:00:00 AM EDT [facility] repaglinide 1 MG Oral Tablet 11/28/2018 12:00:00 AM EDT [facility] Bisoprolol Fumarate 5 MG Oral Tablet [facility] atorvastatin 20 MG Oral Tablet [facility] Carbidopa 25 MG / Levodopa 100 MG Oral Tablet [facility] pantoprazole 40 MG Delayed Release Oral Tablet [facility] Amlodipine 10 MG Oral Tablet [facility] Bisoprolol Fumarate 5 MG Oral Tablet [facility] atorvastatin 20 MG Oral Tablet [facility] Doxepin Hydrochloride 50 MG Oral Capsule [facility]
[2021-01-24] MEDS ORDERED: NS 1,000 ML IV ONE (00:45)
[2021-01-24 01:28] LABS: BASO % 0.1 % (0.0-1.0); EOS # 0.3 10^3/uL (0.0-0.5); EOS % 1.7 % (0.0-3.0); HEMATOCRIT 39.5 % (42.0-52.0); HEMOGLOBIN 13.7 g/dl (13.5-17.5); MEAN CORPUSCULAR HEMOGLOBIN 35.1 pg (27.0-33.0); MEAN CORPUSCULAR HGB CONC 34.7 g/dl (32.0-36.5); MEAN CORPUSCULAR VOLUME 101.3 fl (80.0-96.0); MONO # 1.8 10^3/uL (0.0-0.8); NEUTROPHILS # 11.5 10^3/uL (1.5-8.5); NEUTROPHILS % 78.7 % (36.0-66.0); PLATELET COUNT, AUTOMATED 156 10^3/uL (150-450); WHITE BLOOD COUNT 14.6 10^3/uL (4.0-10.0)
--- OUTSIDE RECORDS SUMMARY | 2021-01-24 01:31 | CCD ---
Author Author [facility] Organization [facility] Address Unknown Phone Unavailable Care Team Providers Care Undercollar Baster Name Role Phone Nicolasa NELSON MD Unavailable Unavailable Nicolasa NELSON MD Unavailable Unavailable Nicolasa NELSON MD Unavailable Unavailable Nicolasa NELSON MD Unavailable Unavailable Nicolasa NELSON MD Unavailable Unavailable Nicolasa NELSON MD Unavailable Unavailable Nicolasa NELSON MD Unavailable Unavailable XANDER [id number], E DONNA [id number] Unavailable Unavailab le XANDER [id number], E DONNA [id number] Unavailable Unavailab le XANDER [id number], E DONNA [id number] Unavailable Unavailab ALAN David Unavailable Unavailable SYMENOW G CHRISTOPHER PA Unavailable Unavailable SYMENOW, G [...] Unavailable STAS, NIKA PLATT Unavailable Unavailable STAS, NIAK PLATT Unavailable Unavailable STAS, NIKA PLATT Unavailable [...] Unavailable Alonzo Ho MD Unavailable Unavailable Alonzo oH MD Unavailable Unavailable Alonzo Ho MD Unavailable [...] Ho MD Unavailable Unavailable Marleny LAGOS Unavailable [phone] Marleny LAGOS Unavailable [phone] Marleny LAGOS Unavailable [phone] Marleny LAGOS Unavailable [phone] Marleny LAGOS Unavailable [phone] LASHONDATIFFANIE MD Unavailable Unavailable LASHONDA, TIFFANIE MD [...] TIFFANIE MD Unavailable Unavailable JOLLY, B PRASANTH SURVEY RESEARCH PROFESSOR Unavailable Unavailable JOLLY, B PRASANTH SURVEY RESEARCH PROFESSOR Unavailable Unavailable JOLLY, B PRASANTH SURVEY RESEARCH PROFESSOR Unavailable Unavailable JOLLY, B PRASANTH SURVEY RESEARCH PROFESSOR Unavailable Unavailable JOLLY, B PRASANTH SURVEY RESEARCH PROFESSOR Unavailable Unavailable JOLLY, B PRASANTH SURVEY RESEARCH PROFESSOR Unavailable Unavailable JOLLY, B PRASANTH SURVEY RESEARCH PROFESSOR Unavailable Unavailable JOLLY, B PRASANTH SURVEY RESEARCH PROFESSOR Unavailable Unavailable JOLLY, B PRASANTH SURVEY RESEARCH PROFESSOR Unavailable Unavailable JOLLY, B PRASANTH SURVEY RESEARCH PROFESSOR Unavailable Unavailable JOLLY, B PRASANTH SURVEY RESEARCH PROFESSOR Unavailable Unavailable JOLLY, B PRASANTH SURVEY RESEARCH PROFESSOR Unavailable Unavailable JOLLY, B PRASANTH SURVEY RESEARCH PROFESSOR Unavailable Unavailable JOLLY, B PRASANTH SURVEY RESEARCH PROFESSOR Unavailable Unavailable JOLLY, B PRASANTH SURVEY RESEARCH PROFESSOR Unavailable Unavailable JOLLY, B PRASANTH SURVEY RESEARCH PROFESSOR Unavailable Unavailable JOLLY, B PRASANTH SURVEY RESEARCH PROFESSOR Unavailable Unavailable JOLLY, B PRASANTH SURVEY RESEARCH PROFESSOR Unavailable Unavailable JOLLY, B PRASANTH SURVEY RESEARCH PROFESSOR Unavailable Unavailable JOLLY, B PRASANTH SURVEY RESEARCH PROFESSOR Unavailable Unavailable JOLLY, B PRASANTH SURVEY RESEARCH PROFESSOR Unavailable Unavailable JOLLY, B PRASANTH SURVEY RESEARCH PROFESSOR Unavailable Unavailable JOLLY, B PRASANTH SURVEY RESEARCH PROFESSOR Unavailable Unavailable JOLLY, B PRASANTH SURVEY RESEARCH PROFESSOR Unavailable Unavailable JOLLY, B PRASANTH SURVEY RESEARCH PROFESSOR Unavailable Unavailable JOLLY, B PRASANTH SURVEY RESEARCH PROFESSOR Unavailable Unavailable JOLLY, B PRASANTH SURVEY RESEARCH PROFESSOR Unavailable Unavailable JOLLY, B PRASANTH SURVEY RESEARCH PROFESSOR Unavailable Unavailable JOLLY, B PRASANTH SURVEY RESEARCH PROFESSOR Unavailable Unavailable JOLLY, B PRASANTH SURVEY RESEARCH PROFESSOR Unavailable Unavailable JOLLY, B PRASANTH SURVEY RESEARCH PROFESSOR Unavailable Unavailable JOLLY, B PRASANTH SURVEY RESEARCH PROFESSOR Unavailable Unavailable JOLLY, B PRASANTH SURVEY RESEARCH PROFESSOR Unavailable Unavailable JOLLY, B PRASANTH SURVEY RESEARCH PROFESSOR Unavailable Unavailable JOLLY, B PRASANTH SURVEY RESEARCH PROFESSOR Unavailable Unavailable JOLLY, B PRASANTH SURVEY RESEARCH PROFESSOR Unavailable Unavailable JOLLY, B PRASANTH SURVEY RESEARCH PROFESSOR Unavailable Unavailable JOLLY, B PRASANTH SURVEY RESEARCH PROFESSOR Unavailable Unavailable JOLLY, B PRASANTH SURVEY RESEARCH PROFESSOR Unavailable Unavailable JOLLY, B PRASANTH SURVEY RESEARCH PROFESSOR Unavailable Unavailable JOLLY, B PRASANTH SURVEY RESEARCH PROFESSOR Unavailable Unavailable JOLLY, B PRASANTH SURVEY RESEARCH PROFESSOR Unavailable Unavailable JOLLY, B PRASANTH SURVEY RESEARCH PROFESSOR Unavailable Unavailable JOLLY, B PRASANTH SURVEY RESEARCH PROFESSOR Unavailable Unavailable JOLLY, B PRASANTH SURVEY RESEARCH PROFESSOR Unavailable Unavailable JOLLY, B PRASANTH SURVEY RESEARCH PROFESSOR Unavailable Unavailable JOLLY, B PRASANTH SURVEY RESEARCH PROFESSOR Unavailable Unavailable JOLLY, B PRASANTH SURVEY RESEARCH PROFESSOR Unavailable Unavailable JOLLY, B PRASANTH SURVEY RESEARCH PROFESSOR Unavailable Unavailable JOLLY, B PRASANTH SURVEY RESEARCH PROFESSOR Unavailable Unavailable JOLLY, B PRASANTH SURVEY RESEARCH PROFESSOR Unavailable Unavailable JOLLY, B PRASANTH SURVEY RESEARCH PROFESSOR Unavailable Unavailable JOLLY, B PRASANTH SURVEY RESEARCH PROFESSOR Unavailable Unavailable JOLLY, B PRASANTH SURVEY RESEARCH PROFESSOR Unavailable Unavailable JOLLY, B PRASANTH SURVEY RESEARCH PROFESSOR Unavailable Unavailable JOLLY, B PRASANTH SURVEY RESEARCH PROFESSOR Unavailable Unavailable JOLLY, B PRASANTH SURVEY RESEARCH PROFESSOR Unavailable Unavailable JOLLY, B PRASANTH SURVEY RESEARCH PROFESSOR Unavailable Unavailable JOLLY, B PRASANTH SURVEY RESEARCH PROFESSOR Unavailable Unavailable JOLLY, B PRASANTH SURVEY RESEARCH PROFESSOR Unavailable Unavailable JOLLY, B PRASANTH SURVEY RESEARCH PROFESSOR Unavailable Unavailable JOLLY, B PRASANTH SURVEY RESEARCH PROFESSOR Unavailable Unavailable Mona, A Rachel RECORD CENTER SPECIALIST Unavailable Unavailable Mona, A Rachel RECORD CENTER SPECIALIST Unavailable Unavailable Mona, A Rachel RECORD CENTER SPECIALIST Unavailable Unavailable Mona, A Rachel RECORD CENTER SPECIALIST Unavailable Unavailable Mona, A Rachel RECORD CENTER SPECIALIST Unavailable Unavailable Mona, A Rachel RECORD CENTER SPECIALIST Unavailable Unavailable Mona, A Rachel RECORD CENTER SPECIALIST Unavailable Unavailable Mona, A Rachel RECORD CENTER SPECIALIST Unavailable Unavailable Mona, A Rachel RECORD CENTER SPECIALIST Unavailable Unavailable Mona, A Rachel RECORD CENTER SPECIALIST Unavailable Unavailable Mona, A Rachel RECORD CENTER SPECIALIST Unavailable Unavailable Mona, A Rachel RECORD CENTER SPECIALIST Unavailable Unavailable Mona, A Rachel RECORD CENTER SPECIALIST Unavailable Unavailable Mona, A Rachel RECORD CENTER SPECIALIST Unavailable Unavailable Mona, A Rachel RECORD CENTER SPECIALIST Unavailable Unavailable Mona, A Rachel RECORD CENTER SPECIALIST Unavailable Unavailable Mona, A Rachel RECORD CENTER SPECIALIST Unavailable Unavailable Mona, A Rachel RECORD CENTER SPECIALIST Unavailable Unavailable Mona, A Rachel RECORD CENTER SPECIALIST Unavailable Unavailable Mona, A Rachel RECORD CENTER SPECIALIST Unavailable Unavailable Mona, A Rachel RECORD CENTER SPECIALIST Unavailable Unavailable Mona, A Rachel RECORD CENTER SPECIALIST Unavailable Unavailable Mona, A Rachel RECORD CENTER SPECIALIST Unavailable Unavailable Mona, A Rachel RECORD CENTER SPECIALIST Unavailable Unavailable Mona, A Rachel RECORD CENTER SPECIALIST Unavailable Unavailable Mona, A Rachel RECORD CENTER SPECIALIST Unavailable Unavailable Mona, A Rachel RECORD CENTER SPECIALIST Unavailable Unavailable Mona, A Rachel RECORD CENTER SPECIALIST Unavailable Unavailable Mona, A Rachel RECORD CENTER SPECIALIST Unavailable Unavailable Mona, A Rachel RECORD CENTER SPECIALIST Unavailable Unavailable Mona, A Rachel RECORD CENTER SPECIALIST Unavailable Unavailable Mona, A Rachel RECORD CENTER SPECIALIST Unavailable Unavailable Mona, A Rachel RECORD CENTER SPECIALIST Unavailable Unavailable Mona, A Rachel RECORD CENTER SPECIALIST Unavailable Unavailable Mona, A Rachel RECORD CENTER SPECIALIST Unavailable Unavailable Mona, A Rachel RECORD CENTER SPECIALIST Unavailable Unavailable Mona, A Rachel RECORD CENTER SPECIALIST Unavailable Unavailable Mona, A Rachel RECORD CENTER SPECIALIST Unavailable Unavailable Mona, A Rachel RECORD CENTER SPECIALIST Unavailable Unavailable Mona, A Rachel RECORD CENTER SPECIALIST Unavailable Unavailable Mona, A Rachel RECORD CENTER SPECIALIST Unavailable Unavailable Mona, A Rachel RECORD CENTER SPECIALIST Unavailable Unavailable Mona, A Rachel RECORD CENTER SPECIALIST Unavailable Unavailable Mona, A Rachel RECORD CENTER SPECIALIST Unavailable Unavailable Mona, A Rachel RECORD CENTER SPECIALIST Unavailable Unavailable Mona, A Rachel RECORD CENTER SPECIALIST Unavailable Unavailable Mona, A Rachel RECORD CENTER SPECIALIST Unavailable Unavailable Mona, A Rachel RECORD CENTER SPECIALIST Unavailable Unavailable Mona, A Rachel RECORD CENTER SPECIALIST Unavailable Unavailable Mona, A Rachel RECORD CENTER SPECIALIST Unavailable Unavailable Mona, A Rachel RECORD CENTER SPECIALIST Unavailable Unavailable Mona, A Rachel RECORD CENTER SPECIALIST Unavailable Unavailable Fish, Radha Rivers MD Unavailable [...] Unavailable Unavailable Kenneth Evans MD Unavailable Unavailable Evans, Kenneth Dawson MD Unavailable Unavailable Evans, Kenneth Dawson MD Unavailable Unavailable Evans, Kenneth Dawson MD Unavailable Unavailable Evans, Kenneth Dawson MD Unavailable Unavailable Evans, Kenneth Dawson MD Unavailable Unavailable Evans, Kenneth Dawson MD Unavailable Unavailable Kenneth Evans MD Unavailable Unavailable Kenneth Evans MD Unavailable Unavailable Kenneth Evans MD Unavailable Unavailable Kenneth Evans MD Unavailable Unavailable Kenneth Evans MD Unavailable Unavailable Evans, Kenneth Dwason MD Unavailable Unavailable Evans, Kenneth Dawson MD Unavailable Unavailable Evans, Kenneth Dawson MD Unavailable Unavailable Evans, Kenneth Dawson MD Unavailable Unavailable Evans, Kenneth Dawson MD Unavailable Unavailable Kenneth Evans MD Unavailable Unavailable Evans, Kenneth Dawson MD Unavailable Unavailable Nathan, Kenneth Dawson MD Unavailable Unavailable Nathan, Kenneth Dawson MD Unavailable Unavailable Evans, Kenneth Dawson MD Unavailable Unavailable Nathan, Kenneth Dawson MD Unavailable Unavailable Nathan, Kenneth Dawson MD Unavailable Unavailable Kenneth Evans MD Unavailable [...] Unavailable Unavailable Kenneth Evans MD Unavailable Unavailable Nathan, Kenneth Dawson MD Unavailable Unavailable Kenneth Evans MD Unavailable Unavailable Kenneth Evans MD Unavailable Unavailable Kenneth Evans MD Unavailable Unavailable Kenneth Evans MD Unavailable Unavailable Kenneth Evans MD Unavailable Unavailable Hegard, Genny RECORD CENTER SPECIALIST Unavailable Unavailable Hegard, Genny RECORD CENTER SPECIALIST Unavailable Unavailable Hegard, Genny RECORD CENTER SPECIALIST Unavailable Unavailable Hegard, Genny RECORD CENTER SPECIALIST Unavailable Unavailable Hegard, Genny RECORD CENTER SPECIALIST Unavailable Unavailable Hegard, Genny RECORD CENTER SPECIALIST Unavailable Unavailable Hegard, Genny RECORD CENTER SPECIALIST Unavailable Unavailable Hegard, Genny RECORD CENTER SPECIALIST Unavailable Unavailable Hegard, Genny RECORD CENTER SPECIALIST Unavailable Unavailable Hegard, Genny RECORD CENTER SPECIALIST Unavailable Unavailable Hegard, Genny RECORD CENTER SPECIALIST Unavailable Unavailable Hegard, Genny RECORD CENTER SPECIALIST Unavailable Unavailable Hegard, Genny RECORD CENTER SPECIALIST Unavailable Unavailable Hegard, Genny RECORD CENTER SPECIALIST Unavailable Unavailable Hegard, Genny RECORD CENTER SPECIALIST Unavailable Unavailable Hegard, Genny RECORD CENTER SPECIALIST Unavailable Unavailable Hegard, Genny RECORD CENTER SPECIALIST Unavailable Unavailable Re-disclosure Warning The records that [...] is protected by Article 27-F of the [facility] Public Health law. If you continue you may have access to information: Regarding HIV / AIDS; Provided by facilities licensed or operated by the [facility] Office of Mental Health; or Provided by the [facility] Office for People With Developmental Disabilities. If such information is present, then the following [facility] mandated warning applies: This information has been [...] law may result in a fine or alf sentence or both. A general authorization for the release of medical or other information is NOT sufficient authorization for further disc losure. Allergies and Adverse Reactions Type Description Substance Reaction Status Data Source(s ) Propensity to adverse reactions CARBIDOPA-LEVODOPA Carbidopa-Levodopa Active [facility] Propensity to adverse reactions NO KNOWN ALLERGIES NO KNOWN ALLERGIES [facility] Propensity to adverse reactions CEPHALEXIN CEPHALEXIN [facility] Propensity to adverse reactions ALPRAZOLAM ALPRAZOLAM [facility] Family History Family Member Name Family Member Gender Family Member Status Date o f Status Description Data Source(s) Unknown Male Problem MEDENT ([facility]) Unknown Unknown Problem MEDENT ([facility]) Unknown Unknown Problem MED[facility] ([facility] ) Encounters Encounter Providers Location Date Indications Data Source(s ) Outpatient Attender: TIFFANIE GALLEGO MD Main [facility] 01/15/2021 02:00:00 PM EDT MEDENT ([facility]) Outpatient Attender: Samir Hagan/Meenu/Pola/R eindl 12/31/2020 01:30:00 PM EDT MEDENT ([facility]) Outpatient Attender: PRASANTH AZEVEDO SURVEY RESEARCH PROFESSOR Physical Therapy 01:15:00 PM EDT [facility] ([facility]) [place] [address] [address] 12/19/2020 12:00:00 AM EDT eCW1 ([facility]) [place] [address] [address] 12/10/2020 12:00:00 AM EDT eCW1 ([facility]) (MMS 2) [facility] 2 [address] [address] 12/03/2020 12:00:00 AM EDT eCW1 ([facility]) (MMS 3) [facility] 3 [address] [address] 11/27/2020 12:00:00 AM EDT eCW1 ([facility]) [place] [address] [facility] [address] 11/21/2020 12:00:00 AM EDT eCW1 ([facility]) [place] [address] [address] 11/07/2020 12:00:00 AM EDT eCW1 ([facility]) Outpatient Attender: ESTELLE Hagan/Meenu/Pola/Reindl 11/06/2020 11:00:00 AM EDT MEDENT ([facility]) Outpatient Attender: NIKA MCCLELLAND MD 11/04/2020 02:31:00 PM [facility] Outpatient Attender: NIKA MCCLELLAND MD [email or web address] 07:46:07 AM EDT - 11/04/2020 03:08:35 PM EDT [facility] [place] [address] [address] 10/15/2020 12:00:00 AM EDT [facility] [place] [address] [address] 10/14/2020 12:00:00 AM EDT [facility]1 [facility] [place] [address] [address] 10/14/2020 12:00:00 AM EDT [facility]CW1 ([facility]) [place] [address] [facility] [address] 10/13/2020 12:00:00 AM EDT eCW1 ([facility]) Outpatient [address] [facility] [place] [address] 09/23/2020 12:00:00 AM EDT eCW1 ([facility]) [place] [address] [facility] [address] 09/19/2020 12:00:00 AM EDT eCW1 ([facility]) Outpatient Attender: Genny Ovalle [facility] Main Office 0 09/09/2020 12:45:00 PM EDT [facility] Outpatient [address] [facility] [place] [address] 09/05/2020 12:00:00 AM EDT eCW1 ([facility]) Outpatient Attender: TIFFANIE GALLEGO MD Main office - [facility] n 09/02/2020 03:45:00 PM EDT MEDENT ([facility]) Unknown [address] [facility] [place] [address] 08/27/2020 12:00:00 AM EDT eCW1 ([facility]) Outpatient Attender: Tita Land MD Physical Therapy 08/25 01:30:00 PM EDT MED[facility] ([facility]) [place] [address] [facility] [place] [address] 08/14/2020 12:00:00 AM EDT eCW1 ([facility]) [place] [address] [facility] [address] 08/06/2020 12:00:00 AM EDT eCW1 ([facility]) Unknown [address] [facility] [place] [address] 07/23/2020 12:00:00 AM EDT eCW1 ([facility]) Outpatient Attender: NIKA MCCLELLAND MD [email or web address] 07/18/2020 01:08:03 PM EDT [facility] [place] [address] [facility] [address] 07/15/2020 12:00:00 AM EDT eCW1 ([facility]) [place] [address] [address] 07/08/2020 12:00:00 AM EDT eCW1 ([facility]) [place] [address] [address] 07/08/2020 12:00:00 AM EDT eCW1 ([facility]) [place] [address] [facility] [address] 07/02/2020 12:00:00 AM EDT eCW1 ([facility]) Outpatient Attender: TIFFANIE GALLEGO MD [facility] 07/01/2020 03:45:00 PM EDT [facility] ([facility] [place] [address] [facility] [place] [address] 06/27/2020 12:00:00 AM EDT eCW1 ([facility]) Outpatient Attender: Samir Hagan/Meenu/Pola/David mckeon 06/24/2020 02:30:00 PM EDT MEDENT ([facility]) Outpatient [address] [facility] [place] [address] 06/23/2020 12:00:00 AM EDT [facility] [place] [address] [facility] [address] 06/19/2020 12:00:00 AM EDT [facility] [place] [address] [facility] [address] 06/09/2020 12:00:00 AM EST eCW1 ([facility]) [place] [address] [address] 06/04/2020 12:00:00 AM EST eCW1 ([facility]) Inpatient Attender: ANSELMO WASHINGTON [facility] tender: DONNA TERRELL [id number]: DONNA TERRELL [id number]: SHANNON TOLLIVER [id number] 05/31/2020 12:00:00 AM EST - 06/05/2020 12:10:00 PM EST Transient cerebral ischemic attack, unspecified [facility] Transient cerebral ischemic attack, unsp ecified Patient discharged. Emergency Attender: SHANNON CARDONA PAReferrer : Christophe Ho MD EMERGENCY ROOM-ER 05/30/2020 10:40:00 PM EST - 05/30/2020 11:58:00 PM [facility] Patient discharged. [place] [address] [address] 05/26/2020 12:00:00 AM EST eCW1 ([facility]) Outpatient [address] [facility] [place] [address] 05/22/2020 12:00:00 AM EST eCW1 ([facility]) Outpatient [address] [facility] [place] [address] 05/16/2020 12:00:00 AM EST eCW1 ([facility]) [place] [address] [address] 05/16/2020 12:00:00 AM EST eCW1 ([facility]) Outpatient Attender: PRASANTH AZEVEDO NP Physical Therapy 12:15:00 PM EST MEDENT ([facility]) Outpatient Attender: TIFFANIE GALLEGO MD Main office [facility] 03/31/2020 02:00:00 PM EST MEDENT ([facility]) ([id number]) For Template [facility] [place] [address] 03/14/2020 12:00:00 AM EST eCW1 ([facility]) Unknown [address] [facility] [address] 03/11/2020 12:00:00 AM EST eCW1 ([facility]) ([id number]) For Template [facility] [place] [address] 03/06/2020 12:00:00 AM EST eCW1 ([facility]) Outpatient PHUONG-JUSTIN 03/04/2020 02:16 :50 PM EST - 03/04/2020 03:56:29 PM EST [facility] Unknown [address] [place] [address] 02/22/2020 12:00:00 AM EST eCW1 ([facility]) ([id number]) For Template [facility] [place] [address] 02/21/2020 12:00:00 AM EST eCW1 ([facility]) Outpatient Attender: NIKA MCCLELLNAD MD 02/19/2020 10:37:00 AM [facility] Outpatient Attender: NIKA JACKSON-RENETTA 02/19/2020 08:00:31 AM EST [facility] ([id number]) For Template [facility] [place] [address] 02/14/2020 12:00:00 AM EST eCW1 ([facility]) Outpatient [facility] [address] 02/01/2020 12:00:00 AM EDT eCW1 ([facility]) Unknown [facility] [address] 02/01/2020 12:00:00 AM EDT eCW1 ([facility]) ([id number]) For Template [address] [place] [address] 01/31/2020 12:00:00 AM EDT eCW1 ([facility]) Outpatient Attender: TIFFANIE GALLEGO MD [facility] 01/28/2020 02:00:00 PM EDT MEDENT ([facility] ) ([id number]) For Template [facility] [place] [address] 01/17/2020 12:00:00 AM EDT eCW1 ([facility]) Outpatient [address] [place] [address] 01/11/2020 12:00:00 AM EDT eCW1 ([facility]) Outpatient [address] [place] [address] 01/10/2020 12:00:00 AM EDT eCW1 ([facility]) ([id number]) For Template [facility] [place] [address] 01/03/2020 12:00:00 AM EDT eCW1 ([facility]) Outpatient Attender: Concepcion Godinez RPA Bentley/Sparks/Pola/R eindl 01/01/2020 11:30:00 AM EDT MEDENT ([facility], ) Outpatient Attender: Christophe Ho MDReferrer: Christophe Ho MD [facility]: NIKA MCCLELLAND MD 12/04/2019 08:54:00 AM E [facility] Outpatient Attender: NIKA MCCLELLAND MD [email or web address] 12/04/2019 07:22:20 AM EDT [facility] Outpatient Attender: Concepcion Godinez RPA Bentley/Sparks/Pola/R eindl 11/29/2019 11:45:00 AM EDT [facility]ENT [facility] Outpatient Attender: NIKA MCCLELLAND MD 10/09/2019 10:32:00 AM [facility] Emergency Attender: ELINOR KEITAReferrer: Christophe Ho MD 09/29/2019 12:35:00 AM EDT - 09/29/2019 12:40:00 AM [facility] Patient discharged. Outpatient Attender: Rachel Dunn FNPReferrer: Christophe angelo MD 04/02/2019 03:55:00 PM EST - 04/02/2019 03:55:00 PM [facility] Inpatient Attender: JEAN GARCIAdmitter: David LAGOS EMERGENCY ROOM-2N 10/27/2017 04:32:00 PM EDT - 2017 11:45:00 AM [facility] Immunizations Vaccine Date Status Description Data Source(s) COVID-19 VACCINE Moderna 06/20/2020 12:00:00 AM EDT completed [facility] Vaccine Series Complete: YESThis Data wa s Submitted to [facility] Via [employer] (formerly [employer]). COVID-19 dose #1 given elsewhere Unspecified 05/15/2020 02:3 1:00 PM EST completed eCW1 ([facility]) COVID-19 dose #1 given elsewhere Unspecified 05/15/2020 02:3 1:00 PM EST completed eCW1 ([facility]) COVID-19 dose #1 given elsewhere Unspecified 05/15/2020 02:3 1:00 PM EST completed eCW1 ([facility]) COVID-19 dose #1 given elsewhere Unspecified 05/15/2020 02:3 1:00 PM EST completed eCW1 ([facility]) COVID-19 dose #1 given elsewhere Unspecified 05/15/2020 02:3 1:00 PM EST completed eCW1 ([facility]) COVID-19 dose #1 given elsewhere Unspecified 05/15/2020 02:3 1:00 PM EST completed eCW1 ([facility]) COVID-19 dose #1 given elsewhere Unspecified 05/15/2020 02:3 1:00 PM EST completed eCW1 ([facility]) COVID-19 dose #1 given elsewhere Unspecified 05/15/2020 02:3 1:00 PM EST completed eCW1 ([facility]) COVID-19 dose #1 given elsewhere Unspecified 05/15/2020 02:3 1:00 PM EST completed eCW1 ([facility]) COVID-19 dose #1 given elsewhere Unspecified 05/15/2020 02:3 1:00 PM EST completed eCW1 ([facility]) COVID-19 dose #1 given elsewhere Unspecified 05/15/2020 02:3 1:00 PM EST completed eCW1 ([facility]) COVID-19 dose #1 given elsewhere Unspecified 05/15/2020 02:3 1:00 PM EST completed eCW1 ([facility]) COVID-19 dose #1 given elsewhere Unspecified 05/15/2020 02:3 1:00 PM EST completed eCW1 ([facility]) COVID-19 dose #1 given elsewhere Unspecified 05/15/2020 02:3 1:00 PM EST completed eCW1 ([facility]) COVID-19 dose #1 given elsewhere Unspecified 05/15/2020 02:3 1:00 PM EST completed eCW1 ([facility]) COVID-19 dose #1 given elsewhere Unspecified 05/15/2020 02:3 1:00 PM EST completed eCW1 ([facility]) COVID-19 dose #1 given elsewhere Unspecified 05/15/2020 02:3 1:00 PM EST completed eCW1 ([facility]) COVID-19 dose #1 given elsewhere Unspecified 05/15/2020 02:3 1:00 PM EST completed eCW1 ([facility]) COVID-19 dose #1 given elsewhere Unspecified 05/15/2020 02:3 1:00 PM EST completed eCW1 ([facility]) COVID-19 dose #1 given elsewhere Unspecified 05/15/2020 02:3 1:00 PM EST completed eCW1 ([facility]) COVID-19 dose #1 given elsewhere Unspecified 05/15/2020 02:3 1:00 PM EST completed eCW1 ([facility]) COVID-19 dose #1 given elsewhere Unspecified 05/15/2020 02:3 1:00 PM EST completed eCW1 ([facility]) COVID-19 dose #1 given elsewhere Unspecified 05/15/2020 02:3 1:00 PM EST completed eCW1 ([facility]) COVID-19 dose #1 given elsewhere Unspecified 05/15/2020 02:3 1:00 PM EST completed eCW1 ([facility]) COVID-19 dose #1 (given elsewhere) Unspecified 05/15/2020 02 :31:00 PM EST completed eCW1 ([facility]) COVID-19 dose #1 given elsewhere Unspecified 05/15/2020 02:3 1:00 PM EST completed eCW1 ([facility]) COVID-19 dose #1 given elsewhere Unspecified 05/15/2020 02:3 1:00 PM EST completed eCW1 ([facility]) COVID-19 dose #1 given elsewhere Unspecified 05/15/2020 02:3 1:00 PM EST completed eCW1 ([facility]) COVID-19 dose #1 given elsewhere Unspecified 05/15/2020 02:3 1:00 PM EST completed eCW1 ([facility]) COVID-19 dose #1 given elsewhere Unspecified 05/15/2020 02:3 1:00 PM EST completed eCW1 ([facility]) COVID-19 VACCINE Moderna 05/15/2020 12:00:00 AM EST completed [facility] Vaccine Series Complete: NOThis Data was Submitted to [facility] [employer] (formerly [employer]). influenza, recombinant, quadrIvalent,injectable, prese rvative free 01/11/2020 12:18:00 PM EDT completed eCW1 ([facility]) influenza, recombinant, quadrIvalent,injectable, prese rvative free 01/11/2020 12:18:00 PM EDT completed eCW1 ([facility]) influenza, recombinant, quadrIvalent,injectable, prese rvative free 01/11/2020 12:18:00 PM EDT completed eCW1 ([facility]) influenza, recombinant, quadrIvalent,injectable, prese rvative free 01/11/2020 12:18:00 PM EDT completed eCW1 ([facility]) influenza, recombinant, quadrIvalent,injectable, prese rvative free 01/11/2020 12:18:00 PM EDT completed eCW1 ([facility]) influenza, recombinant, quadrIvalent,injectable, prese rvative free 01/11/2020 12:18:00 PM EDT completed eCW1 ([facility]) influenza, recombinant, quadrIvalent,injectable, prese rvative free 01/11/2020 12:18:00 PM EDT completed eCW1 ([facility]) influenza, recombinant, quadrIvalent,injectable, prese rvative free 01/11/2020 12:18:00 PM EDT completed eCW1 ([facility]) influenza, recombinant, quadrIvalent,injectable, prese rvative free 01/11/2020 12:18:00 PM EDT completed eCW1 ([facility]) influenza, recombinant, quadrIvalent,injectable, prese rvative free 01/11/2020 12:18:00 PM EDT completed eCW1 ([facility]) influenza, recombinant, quadrIvalent,injectable, prese rvative free 01/11/2020 12:18:00 PM EDT completed eCW1 ([facility]) influenza, recombinant, quadrIvalent,injectable, prese rvative free 01/11/2020 12:18:00 PM EDT completed eCW1 ([facility]) influenza, recombinant, quadrIvalent,injectable, prese rvative free 01/11/2020 12:18:00 PM EDT completed eCW1 ([facility]) influenza, recombinant, quadrIvalent,injectable, prese rvative free 01/11/2020 12:18:00 PM EDT completed eCW1 ([facility]) influenza, recombinant, quadrIvalent,injectable, prese rvative free 01/11/2020 12:18:00 PM EDT completed eCW1 ([facility]) influenza, recombinant, quadrIvalent,injectable, prese rvative free 01/11/2020 12:18:00 PM EDT completed eCW1 ([facility]) influenza, recombinant, quadrIvalent,injectable, prese rvative free 01/11/2020 12:18:00 PM EDT completed eCW1 ([facility]) influenza, recombinant, quadrIvalent,injectable, prese rvative free 01/11/2020 12:18:00 PM EDT completed eCW1 ([facility]) influenza, recombinant, quadrIvalent,injectable, prese rvative free 01/11/2020 12:18:00 PM EDT completed eCW1 ([facility]) influenza, recombinant, quadrIvalent,injectable, prese rvative free 01/11/2020 12:18:00 PM EDT completed eCW1 ([facility]) influenza, recombinant, quadrIvalent,injectable, prese rvative free 01/11/2020 12:18:00 PM EDT completed eCW1 ([facility]) influenza, recombinant, quadrIvalent,injectable, prese rvative free 01/11/2020 12:18:00 PM EDT completed eCW1 ([facility]) influenza, recombinant, quadrIvalent,injectable, prese rvative free 01/11/2020 12:18:00 PM EDT completed eCW1 ([facility]) influenza, recombinant, quadrIvalent,injectable, prese rvative free 01/11/2020 12:18:00 PM EDT completed eCW1 ([facility]) influenza, recombinant, quadrIvalent,injectable, prese rvative free 01/11/2020 12:18:00 PM EDT completed eCW1 ([facility]) influenza, recombinant, quadrIvalent,injectable, prese rvative free 01/11/2020 12:18:00 PM EDT completed eCW1 ([facility]) influenza, recombinant, quadrIvalent,injectable, prese rvative free 01/11/2020 12:18:00 PM EDT completed eCW1 ([facility]) influenza, recombinant, quadrIvalent,injectable, prese rvative free 01/11/2020 12:18:00 PM EDT completed eCW1 ([facility]) influenza, recombinant, quadrIvalent,injectable, prese rvative free 01/11/2020 12:18:00 PM EDT completed eCW1 ([facility]) influenza, recombinant, quadrIvalent,injectable, prese rvative free 01/11/2020 12:18:00 PM EDT completed eCW1 ([facility]) influenza, recombinant, quadrIvalent,injectable, prese rvative free 01/11/2020 12:18:00 PM EDT completed eCW1 ([facility]) influenza, recombinant, quadrIvalent,injectable, prese rvative free 01/11/2020 12:18:00 PM EDT completed eCW1 ([facility]) influenza, recombinant, quadrIvalent,injectable, prese rvative free 01/11/2020 12:18:00 PM EDT completed eCW1 ([facility]) influenza, recombinant, quadrIvalent,injectable, prese rvative free 01/11/2020 12:18:00 PM EDT completed eCW1 ([facility]) influenza, recombinant, quadrIvalent,injectable, prese rvative free 01/11/2020 12:18:00 PM EDT completed eCW1 ([facility]) influenza, recombinant, quadrIvalent,injectable, prese rvative free 01/11/2020 12:18:00 PM EDT completed eCW1 ([facility]) influenza, recombinant, quadrIvalent,injectable, prese rvative free 01/11/2020 12:18:00 PM EDT completed eCW1 ([facility]) influenza, recombinant, quadrIvalent,injectable, prese rvative free 01/11/2020 12:18:00 PM EDT completed eCW1 ([facility]) influenza, recombinant, quadrIvalent,injectable, prese rvative free 01/11/2020 12:18:00 PM EDT completed eCW1 ([facility]) influenza, recombinant, quadrIvalent,injectable, prese rvative free 01/11/2020 12:18:00 PM EDT completed eCW1 ([facility]) influenza, recombinant, quadrIvalent,injectable, prese rvative free 01/11/2020 12:18:00 PM EDT completed eCW1 ([facility]) influenza, recombinant, quadrIvalent,injectable, prese rvative free 01/11/2020 12:18:00 PM EDT completed eCW1 ([facility]) influenza, recombinant, quadrIvalent,injectable, prese rvative free 01/11/2020 12:18:00 PM EDT completed eCW1 ([facility]) IIV3. This is one of two codes replacing CVX 15, which is being retired. 01/10/2020 01:26:00 PM EDT completed eCW1 ([facility] to [facility]) IIV3. This is one of two codes replacing CVX 15, which is being retired. 01/10/2020 01:26:00 PM EDT completed eCW1 ([facility] to [facility]) IIV3. This is one of two codes replacing CVX 15, which is being retired. 01/10/2020 01:26:00 PM EDT completed eCW1 ([facility] to [facility]) IIV3. This is one of two codes replacing CVX 15, which is being retired. 01/10/2020 01:26:00 PM EDT completed eCW1 ([facility] to [facility]) IIV3. This is one of two codes replacing CVX 15, which is being retired. 01/10/2020 01:26:00 PM EDT completed eCW1 ([facility] to [facility]) IIV3. This is one of two codes replacing CVX 15, which is being retired. 01/10/2020 01:26:00 PM EDT completed eCW1 ([facility] to [facility]) IIV3. This is one of two codes replacing CVX 15, which is being retired. 01/10/2020 01:26:00 PM EDT completed eCW1 ([facility] to [facility]) IIV3. This is one of two codes replacing CVX 15, which is being retired. 01/10/2020 01:26:00 PM EDT completed eCW1 ([facility] to [facility]) IIV3. This is one of two codes replacing CVX 15, which is being retired. 01/10/2020 01:26:00 PM EDT completed eCW1 ([facility] to [facility]) IIV3. This is one of two codes replacing CVX 15, which is being retired. 01/10/2020 01:26:00 PM EDT completed eCW1 ([facility] to [facility]) IIV3. This is one of two codes replacing CVX 15, which is being retired. 01/10/2020 01:26:00 PM EDT completed eCW1 ([facility] to [facility]) IIV3. This is one of two codes replacing CVX 15, which is being retired. 01/10/2020 01:26:00 PM EDT completed eCW1 ([facility] to [facility]) IIV3. This is one of two codes replacing CVX 15, which is being retired. 01/10/2020 01:26:00 PM EDT completed eCW1 ([facility] to [facility]) IIV3. This is one of two codes replacing CVX 15, which is being retired. 01/10/2020 01:26:00 PM EDT completed eCW1 ([facility] to [facility]) IIV3. This is one of two codes replacing CVX 15, which is being retired. 01/10/2020 01:26:00 PM EDT completed eCW1 ([facility] to [facility]) IIV3. This is one of two codes replacing CVX 15, which is being retired. 01/10/2020 01:26:00 PM EDT completed eCW1 ([facility] to [facility]) IIV3. This is one of two codes replacing CVX 15, which is being retired. 01/10/2020 01:26:00 PM EDT completed eCW1 ([facility] to [facility]) IIV3. This is one of two codes replacing CVX 15, which is being retired. 01/10/2020 01:26:00 PM EDT completed eCW1 ([facility] to [facility]) IIV3. This is one of two codes replacing CVX 15, which is being retired. 01/10/2020 01:26:00 PM EDT completed eCW1 ([facility] to [facility]) IIV3. This is one of two codes replacing CVX 15, which is being retired. 01/10/2020 01:26:00 PM EDT completed eCW1 ([facility] to [facility]) IIV3. This is one of two codes replacing CVX 15, which is being retired. 01/10/2020 01:26:00 PM EDT completed eCW1 ([facility] to [facility]) IIV3. This is one of two codes replacing CVX 15, which is being retired. 01/10/2020 01:26:00 PM EDT completed eCW1 ([facility] to [facility]) IIV3. This is one of two codes replacing CVX 15, which is being retired. 01/10/2020 01:26:00 PM EDT completed eCW1 ([facility] to [facility]) IIV3. This is one of two codes replacing CVX 15, which is being retired. 01/10/2020 01:26:00 PM EDT completed eCW1 ([facility] to [facility]) IIV3. This is one of two codes replacing CVX 15, which is being retired. 01/10/2020 01:26:00 PM EDT completed eCW1 ([facility] to [facility]) IIV3. This is one of two codes replacing CVX 15, which is being retired. 01/10/2020 01:26:00 PM EDT completed eCW1 ([facility] to [facility]) IIV3. This is one of two codes replacing CVX 15, which is being retired. 01/10/2020 01:26:00 PM EDT completed eCW1 ([facility] to [facility]) IIV3. This is one of two codes replacing CVX 15, which is being retired. 01/10/2020 01:26:00 PM EDT completed eCW1 ([facility] to [facility]) IIV3. This is one of two codes replacing CVX 15, which is being retired. 01/10/2020 01:26:00 PM EDT completed eCW1 ([facility] sale to [facility]) IIV3. This is one of two codes replacing CVX 15, which is being retired. 01/10/2020 01:26:00 PM EDT completed eCW1 ([facility] to [facility]) IIV3. This is one of two codes replacing CVX 15, which is being retired. 01/10/2020 01:26:00 PM EDT completed eCW1 ([facility]ending sale to [facility]) IIV3. This is one of two codes replacing CVX 15, which is being retired. 01/10/2020 01:26:00 PM EDT completed eCW1 ([facility]ending sale to [facility]) IIV3. This is one of two codes replacing CVX 15, which is being retired. 01/10/2020 01:26:00 PM EDT completed eCW1 ([facility]ending sale to [facility]) IIV3. This is one of two codes replacing CVX 15, which is being retired. 01/10/2020 01:26:00 PM EDT completed eCW1 ([facility]ending sale to [facility]) IIV3. This is one of two codes replacing CVX 15, which is being retired. 01/10/2020 01:26:00 PM EDT completed eCW1 ([facility]ending sale to [facility]) IIV3. This is one of two codes replacing CVX 15, which is being retired. 01/10/2020 01:26:00 PM EDT completed eCW1 ([facility]ending sale to [facility]) IIV3. This is one of two codes replacing CVX 15, which is being retired. 01/10/2020 01:26:00 PM EDT completed eCW1 ([facility]ending sale to [facility]) IIV3. This is one of two codes replacing CVX 15, which is being retired. 01/10/2020 01:26:00 PM EDT completed eCW1 ([facility]ending sale to [facility]) IIV3. This is one of two codes replacing CVX 15, which is being retired. 01/10/2020 01:26:00 PM EDT completed eCW1 ([facility]ending sale to [facility]) IIV3. This is one of two codes replacing CVX 15, which is being retired. 01/10/2020 01:26:00 PM EDT completed eCW1 (Pending sale to [facility]) IIV3. This is one of two codes replacing CVX 15, which is being retired. 01/10/2020 01:26:00 PM EDT completed eCW1 (Pending sale to [facility]) IIV3. This is one of two codes replacing CVX 15, which is being retired. 01/10/2020 01:26:00 PM EDT completed eCW1 (Pending sale to [facility]) IIV3. This is one of two codes replacing CVX 15, which is being retired. 01/10/2020 01:26:00 PM EDT completed eCW1 ([facility]ending sale to [facility]) IIV3. This is one of two codes replacing CVX 15, which is being retired. 01/10/2020 01:26:00 PM EDT completed eCW1 ([facility]ending sale to [facility]) Medications Medication Brand Name Start Date Product [...] 14 DAYS SOLD: 01/13/2021 [facility] Nystatin 933514 UNT/ML Oral Suspension Nystatin 021777 UNIT/ML Nystatin [id number] UNIT/ML 12/19/2020 12:00:00 AM EDT 5.0 {ml} active Nystatin 231544 UNIT/ML eCW1 ([facility]) Clindamycin 300 MG Oral Capsule Clindamycin HCl 300 MG Clind amycin HCl 300 MG 12/03/2020 12:00:00 AM EDT active Clindamycin HCl 300 MG eCW1 ([facility]) Clindamycin 300 MG Oral Capsule Clindamycin HCl 300 MG Clind amycin HCl 300 MG 12/03/2020 12:00:00 AM EDT active Clindamycin HCl 300 MG eCW1 ([facility]) Clindamycin 300 MG Oral Capsule Clindamycin HCl 300 MG Clind amycin HCl 300 MG 12/03/2020 12:00:00 AM EDT suspended Clindamycin HCl 300 MG eCW1 ([facility]) Clindamycin 300 MG Oral Capsule CLINDAMYCIN HCL [...] AM EDT active May Have - eCW1 ([facility]) May Have - UNK 10/15/2020 12:00:00 AM EDT active May Have - eCW1 ([facility]) pantoprazole 40 MG Delayed Release Oral Tablet [...] AM EDT active May Have - eCW1 ([facility]) May Have - UNK 10/15/2020 12:00:00 AM EDT active May Have - eCW1 ([facility]) May Have - UNK 10/15/2020 12:00:00 AM EDT active May Have - eCW1 ([facility]) May Have - UNK 10/15/2020 12:00:00 AM EDT active May Have - eCW1 ([facility]) May Have - UNK 10/15/2020 12:00:00 AM EDT active May Have - eCW1 ([facility]) May Have - UNK 10/15/2020 12:00:00 AM EDT active May Have - eCW1 ([facility]) May Have - UNK 10/15/2020 12:00:00 AM EDT active May Have - eCW1 ([facility]) 10 mg 09/10/2020 12:00:00 AM EDT tablet [...] 09/10/19 12:00:00 AM EDT active MEDENT ( [facility]) 25 mg 09/07/2020 [...] 1.0 {tablet_at_bedtime} active Mirtazapine 15 MG eCW1 ([facility]) Mirtazapine 15 MG Oral Tablet Mirtazapine 15 MG 08/06/2020 12:00:00 AM EDT 1.0 {tablet_at_bedtime} active Mirtazapine 15 MG eCW1 ([facility]) Mirtazapine 15 MG Oral Tablet Mirtazapine 15 MG 08/06/2020 12:00:00 AM EDT 1.0 {tablet_at_bedtime} active Mirtazapine 15 MG eCW1 ([facility]) 5 mg 07/25/2020 12:00:00 AM EDT capsule 30 TAKE ONE CAPSULE BY MOUTH EVERY DAY AT BEDTIME TAKE ONE CAPSULE BY MOUTH EVERY DAY AT BEDTIME SOLD: [facility] 5 mg 07/25/2020 12:00:00 AM EDT capsule 30 TAKE ONE CAPSULE BY MOUTH EVERY DAY AT BEDTIME TAKE ONE CAPSULE BY MOUTH EVERY DAY AT BEDTIME SOLD: [facility] 5 mg 07/25/2020 12:00:00 AM EDT capsule 30 TAKE ONE CAPSULE BY MOUTH EVERY DAY AT BEDTIME TAKE ONE CAPSULE BY MOUTH EVERY DAY AT BEDTIME SOLD: [facility] Terazosin 5 MG Oral Capsule Terazosin HCl 5 MG Terazosin HCl 5 MG 07/24/2020 12:00:00 AM EDT 1.0 {capsule_at_bedtime} active Terazosin HCl 5 MG eCW1 ([facility]) Terazosin 5 MG Oral Capsule Terazosin HCl 5 MG Terazosin HCl 5 MG 07/24/2020 12:00:00 AM EDT 1.0 {capsule_at_bedtime} active Terazosin HCl 5 MG eCW1 ([facility]) Terazosin 5 MG Oral Capsule Terazosin HCl 5 MG Terazosin HCl 5 MG 07/24/2020 12:00:00 AM EDT 1.0 {capsule_at_bedtime} suspend ed Terazosin HCl 5 MG eCW1 ([facility]) Terazosin 5 MG Oral Capsule Terazosin HCl 5 MG Terazosin HCl 5 MG 07/24/2020 12:00:00 AM EDT 1.0 {capsule_at_bedtime} active Terazosin HCl 5 MG eCW1 ([facility]) Terazosin 5 MG Oral Capsule Terazosin HCl 5 MG Terazosin HCl 5 MG 07/24/2020 12:00:00 AM EDT 1.0 {capsule_at_bedtime} active Terazosin HCl 5 MG eCW1 ([facility]) Terazosin 5 MG Oral Capsule Terazosin HCl 5 MG Terazosin HCl 5 MG 07/24/2020 12:00:00 AM EDT 1.0 {capsule_at_bedtime} active Terazosin HCl 5 MG eCW1 ([facility]) Terazosin 5 MG Oral Capsule Terazosin HCl 5 MG Terazosin HCl 5 MG 07/24/2020 12:00:00 AM EDT 1.0 {capsule_at_bedtime} active Terazosin HCl 5 MG eCW1 ([facility]) Terazosin 5 MG Oral Capsule Terazosin HCl 5 MG Terazosin HCl 5 MG 07/24/2020 12:00:00 AM EDT 1.0 {capsule_at_bedtime} active Terazosin HCl 5 MG eCW1 ([facility]) Terazosin 5 MG Oral Capsule Terazosin HCl 5 MG Terazosin HCl 5 MG 07/24/2020 12:00:00 AM EDT 1.0 {capsule_at_bedtime} active Terazosin HCl 5 MG eCW1 ([facility]) Terazosin 5 MG Oral Capsule Terazosin HCl 5 MG Terazosin HCl 5 MG 07/24/2020 12:00:00 AM EDT 1.0 {capsule_at_bedtime} active Terazosin HCl 5 MG eCW1 ([facility]) Terazosin 5 MG Oral Capsule Terazosin HCl 5 MG Terazosin HCl 5 MG 07/24/2020 12:00:00 AM EDT 1.0 {capsule_at_bedtime} active Terazosin HCl 5 MG eCW1 ([facility]) Terazosin 5 MG Oral Capsule Terazosin HCl 5 MG Terazosin HCl 5 MG 07/24/2020 12:00:00 AM EDT 1.0 {capsule_at_bedtime} active Terazosin HCl 5 MG eCW1 ([facility]) Terazosin 5 MG Oral Capsule Terazosin HCl 5 MG Terazosin HCl 5 MG 07/24/2020 12:00:00 AM EDT 1.0 {capsule_at_bedtime} active Terazosin HCl 5 MG eCW1 ([facility]) Terazosin 5 MG Oral Capsule Terazosin HCl 5 MG Terazosin HCl 5 MG 07/24/2020 12:00:00 AM EDT 1.0 {capsule_at_bedtime} active Terazosin HCl 5 MG eCW1 ([facility]) Terazosin 5 MG Oral Capsule Terazosin HCl 5 MG Terazosin HCl 5 MG 07/24/2020 12:00:00 AM EDT 1.0 {capsule_at_bedtime} active Terazosin HCl 5 MG eCW1 ([facility]) Terazosin 5 MG Oral Capsule Terazosin HCl 5 MG Terazosin HCl 5 MG 07/24/2020 12:00:00 AM EDT 1.0 {capsule_at_bedtime} active Terazosin HCl 5 MG eCW1 ([facility]) Terazosin 5 MG Oral Capsule Terazosin HCl 5 MG Terazosin HCl 5 MG 07/24/2020 12:00:00 AM EDT 1.0 {capsule_at_bedtime} active Terazosin HCl 5 MG eCW1 ([facility]) pantoprazole 40 MG Delayed Release Oral Tablet [...] THREE TIMES A D AY FOR TREMOR [facility] quetiapine 25 MG Oral Tablet QUEtiapine (SEROQUEL) 25 MG tablet QUEtiapine (SEROQUEL) 25 MG tablet 07/09/2020 12:00:00 AM EDT 25 mg Oral active Take 25 mg by mouth [facility] Hannah-Bid Probiotic - Hannah-Bid Probiotic - 07/08/2020 12:00:00 AM EDT active Hannah-Bid Probiotic - eCW1 ([facility]) 1 billion cell- 250 mg 07/08/2020 12:00:00 AM EDT tablet 60 TAKE ONE TABLET BY MOUTH TWICE A DAY TAKE ONE TABLET BY MOUTH TWICE A DAY SOLD: 09/10/2020 [facility] Hannah-Bid Probiotic - Hannah-Bid Probiotic - 07/08/2020 12:00:00 AM EDT active Hannah-Bid Probiotic - eCW1 ([facility]) Hannah-Bid Probiotic - Hannah-Bid Probiotic - 07/08/2020 12:00:00 AM EDT active Hannah-Bid Probiotic - eCW1 ([facility]) Hannah-Bid Probiotic - Hannah-Bid Probiotic - 07/08/2020 12:00:00 AM EDT active Hannah-Bid Probiotic - eCW1 ([facility]) Hannah-Bid Probiotic - Hannah-Bid Probiotic - 07/08/2020 12:00:00 AM EDT active Hannah-Bid Probiotic - eCW1 ([facility]) Hannah-Bid Probiotic - Hannah-Bid Probiotic - 07/08/2020 12:00:00 AM EDT active Hannah-Bid Probiotic - eCW1 ([facility]) Hannah-Bid Probiotic - Hannah-Bid Probiotic - 07/08/2020 12:00:00 AM EDT active Hannah-Bid Probiotic - eCW1 ([facility]) Hannah-Bid Probiotic - Hannah-Bid Probiotic - 07/08/2020 12:00:00 AM EDT active Hannah-Bid Probiotic - [facility]CW1 ([facility] [facility]) Hannah-Bid Probiotic - Hannah-Bid Probiotic - 07/08/2020 12:00:00 AM EDT active Hannah-Bid Probiotic - eCW1 ([facility]) Hannah-Bid Probiotic - Hannah-Bid Probiotic - 07/08/2020 12:00:00 AM EDT active Hannah-Bid Probiotic - eCW1 ([facility]) 1 billion cell- 250 mg 07/08/2020 12:00:00 AM EDT tablet 60 TAKE ONE TABLET BY MOUTH TWICE A DAY TAKE ONE TABLET BY MOUTH TWICE A DAY SOLD: 07/10/2020 [facility] Hannah-Bid Probiotic - Hannah-Bid Probiotic - 07/08/2020 12:00:00 AM EDT active Hannah-Bid Probiotic - eCW1 ([facility]) Hannah-Bid Probiotic - Hannah-Bid Probiotic - 07/08/2020 12:00:00 AM EDT active Hannah-Bid Probiotic - eCW1 ([facility]) Hannah-Bid Probiotic - Hannah-Bid Probiotic - 07/08/2020 12:00:00 AM EDT active Hannah-Bid Probiotic - eCW1 ([facility]) Hannah-Bid Probiotic - Hannah-Bid Probiotic - 07/08/2020 12:00:00 AM EDT active Hannah-Bid Probiotic - eCW1 ([facility]) Hannah-Bid Probiotic - Hannah-Bid Probiotic - 07/08/2020 12:00:00 AM EDT active Hannah-Bid Probiotic - eCW1 ([facility]) Hannah-Bid Probiotic - Hannah-Bid Probiotic - 07/08/2020 12:00:00 AM EDT suspended Hannah-Bid Probiotic - eCW1 ([facility]) Hannah-Bid Probiotic - Hannah-Bid Probiotic - 07/08/2020 12:00:00 AM EDT active Hannah-Bid Probiotic - eCW1 ([facility]) Hannah-Bid Probiotic - Hannah-Bid Probiotic - 07/08/2020 12:00:00 AM EDT active Hannah-Bid Probiotic - eCW1 ([facility]) Hannah-Bid Probiotic - Hannah-Bid Probiotic - 07/08/2020 12:00:00 AM EDT active Hannah-Bid Probiotic - eCW1 ([facility]) Hannah-Bid Probiotic - Hannah-Bid Probiotic - 07/08/2020 12:00:00 AM EDT active Hannah-Bid Probiotic - eCW1 ([facility]) 5 mg 06/24/2020 12:00:00 AM EDT capsule 30 TAKE ONE CAPSULE BY MOUTH AT BEDTIME TAKE ONE CAPSULE BY MOUTH AT BEDTIME SOLD: 06/25/2020 [facility] Terazosin 5 MG Oral Capsule terazosin (HYTRIN) 5 MG ca psule terazosin (HYTRIN) 5 MG capsule 06/24/2020 12:00:00 AM EDT 5 mg Oral active Take 5 mg by mouth [facility] Terazosin 5 MG Oral Capsule Terazosin HCl 5 MG Terazosin HCl 5 MG 06/23/2020 12:00:00 AM EDT 1.0 {capsule_at_bedtime} active Terazosin HCl 5 MG eCW1 ([facility]) Terazosin 5 MG Oral Capsule Terazosin HCl 5 MG Terazosin HCl 5 MG 06/23/2020 12:00:00 AM EDT 1.0 {capsule_at_bedtime} active Terazosin HCl 5 MG eCW1 ([facility]) Terazosin 5 MG Oral Capsule Terazosin HCl 5 MG Terazosin HCl 5 MG 06/23/2020 12:00:00 AM EDT 1.0 {capsule_at_bedtime} active Terazosin HCl 5 MG eCW1 ([facility]) Terazosin 5 MG Oral Capsule Terazosin HCl 5 MG Terazosin HCl 5 MG 06/23/2020 12:00:00 AM EDT 1.0 {capsule_at_bedtime} active Terazosin HCl 5 MG eCW1 ([facility]) Terazosin 5 MG Oral Capsule Terazosin HCl 5 MG Terazosin HCl 5 MG 06/23/2020 12:00:00 AM EDT 1.0 {capsule_at_bedtime} active Terazosin HCl 5 MG eCW1 ([facility]) Terazosin 5 MG Oral Capsule Terazosin HCl 5 MG Terazosin HCl 5 MG 06/23/2020 12:00:00 AM EDT 1.0 {capsule_at_bedtime} active Terazosin HCl 5 MG eCW1 ([facility]) Terazosin 5 MG Oral Capsule Terazosin HCl 5 MG Terazosin HCl 5 MG 06/23/2020 12:00:00 AM EDT 1.0 {capsule_at_bedtime} active Terazosin HCl 5 MG eCW1 ([facility]) Terazosin 5 MG Oral Capsule Terazosin HCl 5 MG Terazosin HCl 5 MG 06/23/2020 12:00:00 AM EDT 1.0 {capsule_at_bedtime} active Terazosin HCl 5 MG eCW1 ([facility]) Terazosin 5 MG Oral Capsule Terazosin HCl 5 MG Terazosin HCl 5 MG 06/23/2020 12:00:00 AM EDT 1.0 {capsule_at_bedtime} active Terazosin HCl 5 MG eCW1 ([facility]) Terazosin 5 MG Oral Capsule Terazosin HCl 5 MG Terazosin HCl 5 MG 06/23/2020 12:00:00 AM EDT 1.0 {capsule_at_bedtime} active Terazosin HCl 5 MG eCW1 ([facility]) Terazosin 5 MG Oral Capsule Terazosin HCl 5 MG Terazosin HCl 5 MG 06/23/2020 12:00:00 AM EDT 1.0 {capsule_at_bedtime} active Terazosin HCl 5 MG eCW1 ([facility]) 25 mg 06/16/2020 12:00:00 AM EDT tablet [...] MOUTH THREE TIMES A DAY SOLD: 06/13/2020 [facility] atorvastatin 40 MG Oral Tablet ATORVASTATIN CALCIUM 06/11/2020 1 2:00:00 AM EST tablet 30 TAKE ONE TABLET BY MOUTH EVERY D AY TAKE ONE TABLET BY MOUTH EVERY DAY SOLD: 06/13/2020 [facility] 25 mg 06/11/2020 12:00:00 AM [...] active Take 40 mg by mouth daily [facility] clopidogrel 75 MG Oral Tablet clopidogrel (PLAVIX) 75 MG tablet clopidogrel (PLAVIX) 75 MG tablet 06/11/2020 12:00:00 AM EST 75 mg Oral active Take 75 mg by mouth Tuesday and Tuesday [facility] clopidogrel 75 MG Oral Tablet Clopidogrel Bisulfate 75 MG Oral Tablet (PLAVIX) Clopidogrel Bisulfate 75 MG Oral Tablet (PLAVIX) 06/07/2020 12:00:00 AM EST 75 mg Oral active Take 1 tablet by mouth e very other day [facility] pantoprazole 40 MG Delayed Release Oral Tablet Pantoprazole Sodium 40 MG Oral Tablet Delayed Release (PROTONIX) Pantoprazole Sodium 40 MG Oral Tablet De layed Release (PROTONIX) 06/06/2020 12:00:00 AM EST 40 mg Oral active Take 1 tablet by mouth every morning before breakfast [facility] atorvastatin 40 MG Oral Tablet Atorvastatin Calcium 40 MG Oral Tablet (LIPITOR) Atorvastatin Calcium 40 MG Oral Tablet (LIPITOR) 06/06/2020 12:00:00 AM EST 40 mg Oral active Take 1 tablet by mouth d [facility] Amlodipine 5 MG Oral Tablet amLODIPine Besylate 5 MG O ral Tablet (NORVASC) amLODIPine Besylate 5 MG Oral Tablet (NORVASC) 06/06/2020 12:00:00 AM EST 5 mg Oral active Take 1 tablet by mouth d [facility] quetiapine 25 MG Oral Tablet QUEtiapine (SEROquel) tab let 25 mg QUEtiapine (SEROquel) tablet 25 mg 06/05/2020 10:00:00 PM EST 25 mg Oral active 25 mg, Oral, Nightly, First dose on Tue06/05/20 at 2200, For 30 days [facility] Medication administered onsite sennosides, SNF 8.6 MG Oral Tablet senna (SENOKOT) 8.6 MG TABS senna (SENOKOT) 8.6 MG TABS 06/05/2020 12:00:00 AM EST 2 {tbl} Oral activ e Take 2 tablets by mouth [facility] Benzocaine 15 MG / Menthol 3.6 MG Oral L ozenge Benzocaine-Menthol 15-3.6 MG LOZG Benzocaine-Menthol 15-3.6 MG LOZG 06/05/2020 12:00:00 AM EST 1 {lozenge} aborted 1 lozenge [facility] Glucose 0.417 MG/MG Oral Gel dextrose (GLUTOSE) 40 % G EL dextrose (GLUTOSE) 40 % GEL 06/05/2020 12:00:00 AM EST 15 g Oral aborted Take 15 g by mouth [facility] Propranolol Hydrochloride 10 MG Oral Tab let Propranolol HCl 10 MG Oral Tablet (INDERAL) Propranolol HCl 10 MG Oral Tablet (INDERAL) 06/05/2020 12:00:00 AM EST 10 mg Oral active Take 1 tablet by mouth Three times daily [facility] sennosides, SNF 8.6 MG Oral Tablet Senna 8.6 MG Oral T ablet Senna 8.6 MG Oral Tablet 06/05/2020 12:00:00 AM EST 2 {tbl} Oral active Take 2 tablets by mouth nightly as needed [facility] quetiapine 25 MG Oral Tablet QUEtiapine Fumarate 25 MG Oral Tablet (SEROquel) QUEtiapine Fumarate 25 MG Oral Tablet (SEROquel) 06/05/2020 12:00:00 AM EST 25 mg Oral active Take 1 tablet by mouth n [facility] Docusate Sodium 100 MG Oral Capsule Docu sate Sodium 100 MG Oral Capsule (COLACE) Docusate Sodium 100 MG Oral Capsule (COLACE) 06/05/2020 12:00:00 AM EST 100 mg Oral active Take 1 capsule by mouth Two Times Daily for 10 days [facility] Bisacodyl 10 MG Rectal Suppository Bisac odyl 10 MG Rectal Suppository (DULCOLAX) Bisacodyl 10 MG Rectal Suppository (DULCOLAX) 06/05/2020 12:00:0 0 AM EST [address] 1 miles ppository rectally every 3 (three) days as needed for Constipation for up to 10 days [facility] Glucose 0.417 MG/MG Oral Gel Glucose 40 % Oral Gel (GL UTOSE) Glucose 40 % Oral Gel (GLUTOSE) 06/05/2020 12:00:00 AM EST 15 g Oral acti ve Take 37.5 mLs by mouth as needed (for gluose 55-69 mg/dl and able to take PO) [facility] Benzocaine 15 MG / Menthol 3.6 MG Oral L ozenge Benzocaine-Menthol 15-3.6 MG Mouth/Throat Lozenge (CEPACOL) Benzocaine-Menthol 15-3.6 MG Mouth/Throa t Lozenge (CEPACOL) 06/05/2020 12:00:00 AM EST 1 {lozenge} Mouth/Throat active Use as directed 1 lozenge in the mouth or throat every 2 (two) hours as needed [facility] Propranolol Hydrochloride 10 MG Oral Tablet propranolo l (INDERAL) tablet 10 mg propranolol (INDERAL) tablet 10 mg 06/04/2020 05:00:00 PM EST 10 mg Oral active 10 mg, Oral, Three Times Daily Standard, First dose on Tue06/04/20 at 1700, For 30 days
Check vital signs before administering
[facility] Medication administered onsite Magnesium Hydroxide 80 MG/ML Oral Suspen gala magnesium hydroxide (MILK OF MAGNESIA) 400 MG/5ML suspension 45 mL magnesium hydroxide (MILK OF MAGNESIA) 4 00 MG/5ML suspension 45 mL 06/03/2020 10:00:00 PM EST 45 mL Oral active 45 mL, Oral, Nightly, First dose on Tue06/03/20 at 2200, For 30 days
If serum creatinine > 2 notify provider before administering.
[facility] Medication administered onsite Trazodone Hydrochloride 50 MG Oral Tablet trazodone (D ESYREL) tablet 50 mg trazodone (DESYREL) tablet 50 mg 06/03/2020 09:15:00 PM EST 50 mg Oral completed 50 mg, Oral, Once, Tue06/03/20 at 2115, For 1 dose [facility] Medication administered onsite quetiapine 25 MG Oral Tablet QUEtiapine (SEROquel) tab let 25 mg QUEtiapine (SEROquel) tablet 25 mg 06/03/2020 07:00:00 PM EST 25 mg Oral completed 25 mg, Oral, Once, Tue06/03/20 at 1900, For 1 dose [facility] Medication administered onsite 1 ML Lorazepam 2 MG/ML Injection LORazepam (ATIVAN) in jection 1 mg LORazepam (ATIVAN) injection 1 mg 06/03/2020 06:03:19 PM EST 1 mg Intraveno us completed 1 mg, Intravenous, O nce PRN, imaging, Starting Tue06/03/20 at 1803, For 1 dose [facility] Medication administered onsite sodium chloride 0.9 % bolus 500 mL [id number] 06/03/2020 02:15:00 PM EST 500 mL Intravenous completed 500 mL, Intravenous, Once, Tue06/03/20 at 1415, For 1 dose [facility] Medication administered onsite Lactulose 667 MG/ML Oral Solution lactulose (CHRONULAC ) solution 30 mL lactulose (CHRONULAC) solution 30 mL 06/03/2020 10:15:00 AM EST 30 mL Oral completed 30 mL, Oral, Three Times Daily Standard, First dose on Tue06/03/20 at 1015, For 1 dose [facility] Medication administered onsite clopidogrel 75 MG Oral Tablet clopidogrel (PLAVIX) tab let 75 mg clopidogrel (PLAVIX) tablet 75 mg 06/03/2020 09:00:00 AM EST 75 mg Oral active 75 mg, Oral, Every other day, First dose on Tue06/03/20 at 0900, For 21 days [facility] Medication administered onsite Trazodone Hydrochloride 50 MG Oral Tablet trazodone (D ESYREL) tablet 50 mg trazodone (DESYREL) tablet 50 mg 06/03/2020 01:15:00 AM EST 50 mg Oral completed 50 mg, Oral, Once, Tue06/03/20 at 0115, For 1 dose [facility] Medication administered onsite sennosides, SNF 35.2 MG/ML Oral Solution senna (SENOKO T) syrup 10 mL senna (SENOKOT) syrup 10 mL 06/03/2020 01:12:35 AM EST 10 mL Oral active 10 mL, Oral, Nightly PRN, Constipation, Starting Tue06/03/20 at 0112, For 30 days [facility] Medication administered onsite Bisacodyl 10 MG Rectal Suppository bisacodyl (DULCOLAX ) suppository 10 mg bisacodyl (DULCOLAX) suppository 10 mg 06/03/2020 01:12:35 AM EST 10 mg Rectal active 10 mg, Rectal, Every 72 hours PRN, Constipation, Starting Tue06/03/20 at 0112, For 30 days
Hold if patient has had BM within the past 2 days.
[facility] Medication administered onsite sennosides, SNF 8.6 MG Oral Tablet senna tablet 2 tablet sen na tablet 2 tablet 06/03/2020 01:12:35 AM EST 2 {tbl} Oral active 2 tablet, Oral, Nightly PRN, Constipation, Starting Tue06/03/20 at 0112, For 30 days [facility] Medication administered onsite POLYETHYLENE GLYCOL [...] due to potential increased risk for aspiration.
[facility] Medication administered onsite atorvastatin 40 MG Oral Tablet atorvastatin (LIPITOR) tablet 40 mg atorvastatin (LIPITOR) tablet 40 mg 06/02/2020 09:00:00 AM EST 40 mg Oral active 40 mg, Oral, Daily Standard, First dose (after last modification) on Tue06/02/20 at 0900, For 28 doses [facility] Medication administered onsite Docusate Sodium 100 MG Oral Capsule docusate sodium (C OLACE) capsule 100 mg docusate sodium (COLACE) capsule 100 mg 06/01/2020 09:00:00 PM EST 100 mg Oral active 100 mg, Oral, 2 Times Daily, First dose on Tue06/01/20 at 2100, For 30 days [facility] Medication administered onsite Doxepin Hydrochloride 50 MG Oral Capsule doxepin (SINE KRISTINE) capsule 100 mg doxepin (SINEQUAN) capsule 100 mg 05/31/2020 11:30:00 PM EST 100 mg Oral active 100 mg, Oral, Nightl y, First dose (after last modification) on 05/31/20 at 2330, For 30 days [facility] Medication administered onsite Carbidopa 25 MG / Levodopa 100 MG Oral T ablet carbidopa-levodopa (SINEMET) 25- 100 MG per tablet 0.5 tablet carbidopa-levodopa (SINEMET) 25-100 MG p er tablet 0.5 tablet 05/31/2020 11:30:00 PM EST 0.5 {tbl} Oral abor amanuel 0.5 tablet, Oral, Three Times Daily Standard, First dose (after last modification) on 05/31/20 at 2330, For 30 days [facility] Medication administered onsite Melatonin 5 MG Oral Tablet melatonin tablet 5 mg melatonin t ablet 5 mg 05/31/2020 08:00:00 PM EST 5 mg Oral completed 5 mg, Oral, Nightly, First dose (after last modification) on [facility] 05/31/20 at 2000, For 1 day [facility] Medication administered onsite Benzocaine 15 MG / Menthol 3.6 MG Oral L ozenge benzocaine-menthol (CEPACOL) 15- 3.6 MG per lozenge 1 lozenge benzocaine-menthol (CEPACOL) 15-3.6 MG p er lozenge 1 lozenge 05/31/2020 03:51:37 PM EST 1 {lozenge} Mouth/Throat active 1 lozenge, Mouth/Throat, Every 2 hours PRN, Sore Throat, Starting 05/31/20 at 1551, For 30 days [facility] Medication administered onsite Amlodipine 5 MG Oral Tablet amlodipine (NORVASC) table t 5 mg amlodipine (NORVASC) tablet 5 mg 05/31/2020 09:00:00 AM EST 5 mg Oral active 5 mg, Oral, Daily Standard, First dose on 05/31/20 at 0900, For 30 days
Check vital signs before administering
[facility] Medication administered onsite Bisoprolol Fumarate 5 MG Oral Tablet bisoprolol (ZEBET A) tablet 5 mg bisoprolol (ZEBETA) tablet 5 mg 05/31/2020 09:00:00 AM EST 5 mg Oral aborted 5 mg, Oral, Daily Standard, First dose on 05/31/20 at 0900, For 30 days [facility] Medication administered onsite Allopurinol 100 MG Oral Tablet allopurinol (ZYLOPRIM) tablet 100 mg allopurinol (ZYLOPRIM) tablet 100 mg 05/31/2020 09:00:00 AM EST 100 mg Oral active 100 mg, Oral, Daily Standard, First dose on Sat at 0900, For 30 days [facility] Medication administered onsite NaCl infusion 0.9 % [id number] 05/31/2020 09:00:00 AM EST Intravenous completed at 75 mL/hr, Intrave nous, Continuous, Starting 05/31/20 at 0900, For 1 day [facility] Medication administered onsite atorvastatin 40 MG Oral Tablet atorvastatin (LIPITOR) tablet 80 mg atorvastatin (LIPITOR) tablet 80 mg 05/31/2020 09:00:00 AM EST 80 mg Oral aborted 80 mg, Oral, Daily Standard, First dose on 05/31/20 at 0900, For 30 days [facility] Medication administered onsite insulin lispro (HumaLOG) injection LOW DOSE EATING INS ULIN patients 1-8 Units [id number] 05/31/2020 08:00:00 AM EST U Subcutaneous active 1-8 Units, Subcutaneous, Three Times Daily-With Meals, First dose on 05/31/20 at 0800, For 30 days
Nursing MUST open the 'SQ Insulin Dosing Charts' Sidebar Report, or, the Patient Summary or Summary Report within the ED.
[facility] Medication administered onsite 60 ACTUAT Budesonide 0.08 MG/ACTUAT / fo rmoterol fumarate 0.0045 MG/ACTUAT Metered Dose Inhaler budesonide-formoterol (SYMBICORT) 80-4.5 MCG/ACT inhaler 2 puff budesonide-formoterol (SYMBICORT) 80-4.5 MCG/ACT inhal er 2 puff 05/31/2020 08:00:00 AM EST 2 {puff} Inhalation active 2 puff, Inhalation, 2 Times Daily, First dose on 05/31/20 at 0800, For 14 days
Shake well before using
[facility] Medication administered onsite pantoprazole 40 MG Delayed Release Oral Tablet pantoprazole (PROTONIX) EC tablet 40 mg pantoprazole (PROTONIX) EC tablet 40 mg 05/31/2020 07:30:[address] 40 mg Oral active 40 mg, Ora l, Before Breakfast, First dose on 05/31/20 at 0730, For 30 days
Do not crush or chew
[facility] Medication administered onsite Glucagon 1 MG Injection glucagon (human recombinant) ( GLUCAGEN) injection 1 mg glucagon (human recombinant) (GLUCAGEN) injection 1 mg 05/31/2020 03:53:07 AM EST 1 mg Intramuscular active 1 mg, Intramuscular, PRN, for glucose <55 without IV access, Starting 05/31/20 at 0353, For 30 days [facility] Medication administered onsite dextrose 50 % IV solution 25 mL [id number] 05/31/2020 03:53:[address] 25 mL Intravenous active 25 mL, Intrav enous, PRN, Other, blood glucose <55, Starting 05/31/20 at 0353, For 30 days
Not for midline administration.
[facility] Medication administered onsite Glucose 0.417 MG/MG Oral Gel glucose (GLUTOSE) 40 % or al gel 15 g glucose (GLUTOSE) 40 % oral gel 15 g 05/31/2020 03:53:07 AM EST 15 g Oral active 15 g, Oral, PRN, Low blood s ugar, for gluose 55-69 mg/dl and able to take PO, Starting 05/31/20 at 0353, For 30 days [facility] Medication administered onsite 10 mg [...] MOUTH TWICE A DAY FOR 10 DAYS [facility] doxycycline hyclate 100 MG Oral Capsule Doxycycline Hyclate 100 MG Oral Capsule (VIBRAMYCIN) Doxycycline Hyclate 100 MG Oral Capsule (VIBRAMYCIN) 0 05/26/2020 12:00:00 AM EST 100 mg Oral aborted Take 100 mg by mouth Two Times Daily for 10 days. [facility] Doxycycline Monohydrate 100 MG Oral Capsule Doxycycline Price hydrate 100 MG 05/22/2020 12:00:00 AM EST 1.0 {capsule} active Doxycycline Monohydrate 100 MG eCW1 ([facility]) Doxycycline Monohydrate 100 MG Oral Capsule Doxycycline Price hydrate 100 MG 05/22/2020 12:00:00 AM EST 1.0 {capsule} active Doxycycline Monohydrate 100 MG eCW1 ([facility]) Doxycycline Monohydrate 100 MG Oral Capsule Doxycycline Price hydrate 100 MG 05/22/2020 12:00:00 AM EST 1.0 {capsule} active Doxycycline Monohydrate 100 MG eCW1 ([facility]) Doxycycline Monohydrate 100 MG Oral Capsule Doxycycline Price hydrate 100 MG 05/22/2020 12:00:00 AM EST 1.0 {capsule} active Doxycycline Monohydrate 100 MG eCW1 ([facility]) Doxycycline Monohydrate 100 MG Oral Capsule Doxycycline Price hydrate 100 MG 05/22/2020 12:00:00 AM EST 1.0 {capsule} active Doxycycline Monohydrate 100 MG eCW1 ([facility]) Flonase Allergy Relief 50 MCG/ACT Flonase Allergy Relief 50 MCG/ACT 05/16/2020 12:00:00 AM EST 1.0 {spray_in_each_nostril} acti ve Flonase Allergy Relief 50 MCG/ACT eCW1 ([facility]) Flonase Allergy Relief 50 MCG/ACT Flonase Allergy Relief 50 MCG/ACT 05/16/2020 12:00:00 AM EST 1.0 {spray_in_each_nostril} acti ve Flonase Allergy Relief 50 MCG/ACT eCW1 ([facility]) Flonase Allergy Relief 50 MCG/ACT Flonase Allergy Relief 50 MCG/ACT 05/16/2020 12:00:00 AM EST 1.0 {spray_in_each_nostril} acti ve Flonase Allergy Relief 50 MCG/ACT eCW1 ([facility]) Flonase Allergy Relief 50 MCG/ACT Flonase Allergy Relief 50 MCG/ACT 05/16/2020 12:00:00 AM EST 1.0 {spray_in_each_nostril} acti ve Flonase Allergy Relief 50 MCG/ACT eCW1 ([facility]) Flonase Allergy Relief 50 MCG/ACT Flonase Allergy Relief 50 MCG/ACT 05/16/2020 12:00:00 AM EST 1.0 {spray_in_each_nostril} acti ve Flonase Allergy Relief 50 MCG/ACT eCW1 ([facility]) Flonase Allergy Relief 50 MCG/ACT Flonase Allergy Relief 50 MCG/ACT 05/16/2020 12:00:00 AM EST 1.0 {spray_in_each_nostril} acti ve Flonase Allergy Relief 50 MCG/ACT eCW1 ([facility]) Flonase Allergy Relief 50 MCG/ACT Flonase Allergy Relief 50 MCG/ACT 05/16/2020 12:00:00 AM EST 1.0 {spray_in_each_nostril} acti ve Flonase Allergy Relief 50 MCG/ACT eCW1 ([facility]) Flonase Allergy Relief 50 MCG/ACT Flonase Allergy Relief 50 MCG/ACT 05/16/2020 12:00:00 AM EST 1.0 {spray_in_each_nostril} acti ve Flonase Allergy Relief 50 MCG/ACT eCW1 ([facility]) Flonase Allergy Relief 50 MCG/ACT Flonase Allergy Relief 50 MCG/ACT 05/16/2020 12:00:00 AM EST 1.0 {spray_in_each_nostril} acti ve Flonase Allergy Relief 50 MCG/ACT eCW1 ([facility]) Flonase Allergy Relief 50 MCG/ACT Flonase Allergy Relief 50 MCG/ACT 05/16/2020 12:00:00 AM EST 1.0 {spray_in_each_nostril} acti ve Flonase Allergy Relief 50 MCG/ACT eCW1 ([facility]) 50 mcg/actuation 05/16/2020 12:00:00 AM EST spray,suspension 16 SPRAY 1 SPRAY IN EACH NOSTRIL TWO TIMES A DAY SPRAY 1 SPRAY IN EACH NOSTRIL TWO TIMES A DAY SOLD: 05/17/2020 [facility] Flonase Allergy Relief 50 MCG/ACT Flonase Allergy Relief 50 MCG/ACT 05/16/2020 12:00:00 AM EST 1.0 {spray_in_each_nostril} susp ended Flonase Allergy Relief 50 MCG/ACT eCW1 ([facility]) Flonase Allergy Relief 50 MCG/ACT Flonase Allergy Relief 50 MCG/ACT 05/16/2020 12:00:00 AM EST 1.0 {spray_in_each_nostril} acti ve Flonase Allergy Relief 50 MCG/ACT eCW1 ([facility]) Flonase Allergy Relief 50 MCG/ACT Flonase Allergy Relief 50 MCG/ACT 05/16/2020 12:00:00 AM EST 1.0 {spray_in_each_nostril} acti ve Flonase Allergy Relief 50 MCG/ACT eCW1 ([facility]) Flonase Allergy Relief 50 MCG/ACT Flonase Allergy Relief 50 MCG/ACT 05/16/2020 12:00:00 AM EST 1.0 {spray_in_each_nostril} acti ve Flonase Allergy Relief 50 MCG/ACT eCW1 ([facility]) Flonase Allergy Relief 50 MCG/ACT Flonase Allergy Relief 50 MCG/ACT 05/16/2020 12:00:00 AM EST 1.0 {spray_in_each_nostril} acti ve Flonase Allergy Relief 50 MCG/ACT eCW1 ([facility]) Flonase Allergy Relief 50 MCG/ACT Flonase Allergy Relief 50 MCG/ACT 05/16/2020 12:00:00 AM EST 1.0 {spray_in_each_nostril} acti ve Flonase Allergy Relief 50 MCG/ACT eCW1 ([facility]) Flonase Allergy Relief 50 MCG/ACT Flonase Allergy Relief 50 MCG/ACT 05/16/2020 12:00:00 AM EST 1.0 {spray_in_each_nostril} acti ve Flonase Allergy Relief 50 MCG/ACT eCW1 ([facility]) Flonase Allergy Relief 50 MCG/ACT Flonase Allergy Relief 50 MCG/ACT 05/16/2020 12:00:00 AM EST 1.0 {spray_in_each_nostril} acti ve Flonase Allergy Relief 50 MCG/ACT eCW1 ([facility]) Flonase Allergy Relief 50 MCG/ACT Flonase Allergy Relief 50 MCG/ACT 05/16/2020 12:00:00 AM EST 1.0 {spray_in_each_nostril} acti ve Flonase Allergy Relief 50 MCG/ACT eCW1 ([facility]) Flonase Allergy Relief 50 MCG/ACT Flonase Allergy Relief 50 MCG/ACT 05/16/2020 12:00:00 AM EST 1.0 {spray_in_each_nostril} acti ve Flonase Allergy Relief 50 MCG/ACT eCW1 ([facility]) Flonase Allergy Relief 50 MCG/ACT Flonase Allergy Relief 50 MCG/ACT 05/16/2020 12:00:00 AM EST 1.0 {spray_in_each_nostril} acti ve Flonase Allergy Relief 50 MCG/ACT eCW1 ([facility]) Flonase Allergy Relief 50 MCG/ACT Flonase Allergy Relief 50 MCG/ACT 05/16/2020 12:00:00 AM EST 1.0 {spray_in_each_nostril} acti ve Flonase Allergy Relief 50 MCG/ACT eCW1 ([facility]) Flonase Allergy Relief 50 MCG/ACT Flonase Allergy Relief 50 MCG/ACT 05/16/2020 12:00:00 AM EST 1.0 {spray_in_each_nostril} acti ve Flonase Allergy Relief 50 MCG/ACT eCW1 ([facility]) fluticasone (FLONASE) 50 MCG/ACT nasal spray [id number] 05/16/2020 12:00:00 AM EST active SPRAY 1 SPRAY IN EACH NOSTRIL TWO TIMES A DAY [facility] Flonase Allergy Relief 50 MCG/ACT Flonase Allergy Relief 50 MCG/ACT 05/16/2020 12:00:00 AM EST 1.0 {spray_in_each_nostril} acti ve Flonase Allergy Relief 50 MCG/ACT eCW1 ([facility]) Flonase Allergy Relief 50 MCG/ACT Flonase Allergy Relief 50 MCG/ACT 05/16/2020 12:00:00 AM EST 1.0 {spray_in_each_nostril} acti ve Flonase Allergy Relief 50 MCG/ACT eCW1 ([facility]) Flonase Allergy Relief 50 MCG/ACT Flonase Allergy Relief 50 MCG/ACT 05/16/2020 12:00:00 AM EST 1.0 {spray_in_each_nostril} acti ve Flonase Allergy Relief 50 MCG/ACT eCW1 ([facility]) Flonase Allergy Relief 50 MCG/ACT Flonase Allergy Relief 50 MCG/ACT 05/16/2020 12:00:00 AM EST 1.0 {spray_in_each_nostril} acti ve Flonase Allergy Relief 50 MCG/ACT eCW1 ([facility]) Flonase Allergy Relief 50 MCG/ACT Flonase Allergy Relief 50 MCG/ACT 05/16/2020 12:00:00 AM EST 1.0 {spray_in_each_nostril} acti ve Flonase Allergy Relief 50 MCG/ACT eCW1 ([facility]) Flonase Allergy Relief 50 MCG/ACT Flonase Allergy Relief 50 MCG/ACT 05/16/2020 12:00:00 AM EST 1.0 {spray_in_each_nostril} acti ve Flonase Allergy Relief 50 MCG/ACT eCW1 ([facility]) Flonase Allergy Relief 50 MCG/ACT Flonase Allergy Relief 50 MCG/ACT 05/16/2020 12:00:00 AM EST 1.0 {spray_in_each_nostril} acti ve Flonase Allergy Relief 50 MCG/ACT eCW1 ([facility]) atorvastatin 20 MG Oral Tablet ATORVASTATIN CALCIUM [...] capsule 04/29/2020 12:00 :00 AM EST aborted [facility] 5 mg 04/08/2020 12:00:00 AM EST tablet [...] 12:00:00 AM EST ORAL active M EDENT ([facility]) 8 HR Acetaminophen 650 MG Extended Release Oral Tablet [Tyle nol] Tylenol 8 Hour 02/21/2020 12:00:00 AM EST active MEDENT ([facility]) doxycycline hyclate 100 MG [...] {tablet} active Doxycycline Hyclate 100 MG eCW1 ([facility]) 12 HR Guaifenesin 600 MG Extended Release Oral Tablet [Mucinex] Mucinex 600 MG Mucinex 600 MG 02/01/2020 12:00:00 AM EDT 1.0 {tablet_as_needed} active Mucinex 600 MG eCW1 ([facility]) 12 HR Guaifenesin 600 MG Extended Release Oral Tablet [Mucinex] Mucinex 600 MG Mucinex 600 MG 02/01/2020 12:00:00 AM EDT 1.0 {tablet_as_needed} active Mucinex 600 MG eCW1 ([facility]) 12 HR Guaifenesin 600 MG Extended Release Oral Tablet [Mucinex] Mucinex 600 MG Mucinex 600 MG 02/01/2020 12:00:00 AM EDT 1.0 {tablet_as_needed} active Mucinex 600 MG eCW1 ([facility]) 12 HR Guaifenesin 600 MG Extended Release Oral Tablet [Mucinex] Mucinex 600 MG Mucinex 600 MG 02/01/2020 12:00:00 AM EDT 1.0 {tablet_as_needed} active Mucinex 600 MG eCW1 ([facility]) 12 HR Guaifenesin 600 MG Extended Release Oral Tablet [Mucinex] Mucinex 600 MG Mucinex 600 MG 02/01/2020 12:00:00 AM EDT 1.0 {tablet_as_needed} active Mucinex 600 MG eCW1 ([facility]) 12 HR Guaifenesin 600 MG Extended Release Oral Tablet [Mucinex] Mucinex 600 MG Mucinex 600 MG 02/01/2020 12:00:00 AM EDT 1.0 {tablet_as_needed} active Mucinex 600 MG eCW1 ([facility]) 12 HR Guaifenesin 600 MG Extended Release Oral Tablet [Mucinex] Mucinex 600 MG Mucinex 600 MG 02/01/2020 12:00:00 AM EDT 1.0 {tablet_as_needed} active Mucinex 600 MG eCW1 ([facility]) 12 HR Guaifenesin 600 MG Extended Release Oral Tablet [Mucinex] Mucinex 600 MG Mucinex 600 MG 02/01/2020 12:00:00 AM EDT 1.0 {tablet_as_needed} active Mucinex 600 MG eCW1 ([facility]) 12 HR Guaifenesin 600 MG Extended Release Oral Tablet [Mucinex] Mucinex 600 MG Mucinex 600 MG 02/01/2020 12:00:00 AM EDT 1.0 {tablet_as_needed} active Mucinex 600 MG eCW1 ([facility]) 12 HR Guaifenesin 600 MG Extended Release Oral Tablet [Mucinex] Mucinex 600 MG Mucinex 600 MG 02/01/2020 12:00:00 AM EDT 1.0 {tablet_as_needed} active Mucinex 600 MG eCW1 ([facility]) 12 HR Guaifenesin 600 MG Extended Release Oral Tablet [Mucinex] Mucinex 600 MG Mucinex 600 MG 02/01/2020 12:00:00 AM EDT 1.0 {tablet_as_needed} active Mucinex 600 MG eCW1 ([facility]) doxycycline hyclate 100 MG Oral Tablet Doxycycline Hyc late 100 MG Doxycycline Hyclate 100 MG 02/01/2020 12:00:00 AM EDT 1.0 {tablet} active Doxycycline Hyclate 100 MG eCW1 ([facility]) 12 HR Guaifenesin 600 MG Extended Release Oral Tablet [Mucinex] Mucinex 600 MG Mucinex 600 MG 02/01/2020 12:00:00 AM EDT 1.0 {tablet_as_needed} active Mucinex 600 MG eCW1 ([facility]) 12 HR Guaifenesin 600 MG Extended Release Oral Tablet [Mucinex] Mucinex 600 MG Mucinex 600 MG 02/01/2020 12:00:00 AM EDT 1.0 {tablet_as_needed} active Mucinex 600 MG eCW1 ([facility]) 12 HR Guaifenesin 600 MG Extended Release Oral Tablet [Mucinex] Mucinex 600 MG Mucinex 600 MG 02/01/2020 12:00:00 AM EDT 1.0 {tablet_as_needed} active Mucinex 600 MG eCW1 ([facility]) 12 HR Guaifenesin 600 MG Extended Release Oral Tablet [Mucinex] Mucinex 600 MG Mucinex 600 MG 02/01/2020 12:00:00 AM EDT 1.0 {tablet_as_needed} active Mucinex 600 MG eCW1 ([facility]) 12 HR Guaifenesin 600 MG Extended Release Oral Tablet [Mucinex] Mucinex 600 MG Mucinex 600 MG 02/01/2020 12:00:00 AM EDT 1.0 {tablet_as_needed} active Mucinex 600 MG eCW1 ([facility]) 12 HR Guaifenesin 600 MG Extended Release Oral Tablet [Mucinex] Mucinex 600 MG Mucinex 600 MG 02/01/2020 12:00:00 AM EDT 1.0 {tablet_as_needed} active Mucinex 600 MG eCW1 ([facility]) 12 HR Guaifenesin 600 MG Extended Release Oral Tablet [Mucinex] Mucinex 600 MG Mucinex 600 MG 02/01/2020 12:00:00 AM EDT 1.0 {tablet_as_needed} active Mucinex 600 MG eCW1 ([facility]) 12 HR Guaifenesin 600 MG Extended Release Oral Tablet [Mucinex] Mucinex 600 MG Mucinex 600 MG 02/01/2020 12:00:00 AM EDT 1.0 {tablet_as_needed} active Mucinex 600 MG eCW1 ([facility]) 12 HR Guaifenesin 600 MG Extended Release Oral Tablet [Mucinex] Mucinex 600 MG Mucinex 600 MG 02/01/2020 12:00:00 AM EDT 1.0 {tablet_as_needed} active Mucinex 600 MG eCW1 ([facility]) 12 HR Guaifenesin 600 MG Extended Release Oral Tablet [Mucinex] Mucinex 600 MG Mucinex 600 MG 02/01/2020 12:00:00 AM EDT 1.0 {tablet_as_needed} active Mucinex 600 MG eCW1 ([facility]) 12 HR Guaifenesin 600 MG Extended Release Oral Tablet [Mucinex] Mucinex 600 MG Mucinex 600 MG 02/01/2020 12:00:00 AM EDT 1.0 {tablet_as_needed} active Mucinex 600 MG eCW1 ([facility]) 12 HR Guaifenesin 600 MG Extended Release Oral Tablet [Mucinex] Mucinex 600 MG Mucinex 600 MG 02/01/2020 12:00:00 AM EDT 1.0 {tablet_as_needed} active Mucinex 600 MG eCW1 ([facility]) 12 HR Guaifenesin 600 MG Extended Release Oral Tablet [Mucinex] Mucinex 600 MG Mucinex 600 MG 02/01/2020 12:00:00 AM EDT 1.0 {tablet_as_needed} active Mucinex 600 MG eCW1 ([facility]) 12 HR Guaifenesin 600 MG Extended Release Oral Tablet [Mucinex] Mucinex 600 MG Mucinex 600 MG 02/01/2020 12:00:00 AM EDT 1.0 {tablet_as_needed} active Mucinex 600 MG eCW1 ([facility]) 12 HR Guaifenesin 600 MG Extended Release Oral Tablet [Mucinex] Mucinex 600 MG Mucinex 600 MG 02/01/2020 12:00:00 AM EDT 1.0 {tablet_as_needed} active Mucinex 600 MG eCW1 ([facility]) 12 HR Guaifenesin 600 MG Extended Release Oral Tablet [Mucinex] Mucinex 600 MG Mucinex 600 MG 02/01/2020 12:00:00 AM EDT 1.0 {tablet_as_needed} active Mucinex 600 MG eCW1 ([facility]) 12 HR Guaifenesin 600 MG Extended Release Oral Tablet [Mucinex] Mucinex 600 MG Mucinex 600 MG 02/01/2020 12:00:00 AM EDT 1.0 {tablet_as_needed} active Mucinex 600 MG eCW1 ([facility]) 12 HR Guaifenesin 600 MG Extended Release Oral Tablet [Mucinex] Mucinex 600 MG Mucinex 600 MG 02/01/2020 12:00:00 AM EDT 1.0 {tablet_as_needed} active Mucinex 600 MG eCW1 ([facility]) 12 HR Guaifenesin 600 MG Extended Release Oral Tablet [Mucinex] Mucinex 600 MG Mucinex 600 MG 02/01/2020 12:00:00 AM EDT 1.0 {tablet_as_needed} active Mucinex 600 MG eCW1 ([facility]) 12 HR Guaifenesin 600 MG Extended Release Oral Tablet [Mucinex] Mucinex 600 MG Mucinex 600 MG 02/01/2020 12:00:00 AM EDT 1.0 {tablet_as_needed} active Mucinex 600 MG eCW1 ([facility]) 12 HR Guaifenesin 600 MG Extended Release Oral Tablet [Mucinex] Mucinex 600 MG Mucinex 600 MG 02/01/2020 12:00:00 AM EDT 1.0 {tablet_as_needed} active Mucinex 600 MG eCW1 ([facility]) 12 HR Guaifenesin 600 MG Extended Release Oral Tablet [Mucinex] Mucinex 600 MG Mucinex 600 MG 02/01/2020 12:00:00 AM EDT 1.0 {tablet_as_needed} active Mucinex 600 MG eCW1 ([facility]) 12 HR Guaifenesin 600 MG Extended Release Oral Tablet [Mucinex] Mucinex 600 MG Mucinex 600 MG 02/01/2020 12:00:00 AM EDT 1.0 {tablet_as_needed} active Mucinex 600 MG eCW1 ([facility]) 12 HR Guaifenesin 600 MG Extended Release Oral Tablet [Mucinex] Mucinex 600 MG Mucinex 600 MG 02/01/2020 12:00:00 AM EDT 1.0 {tablet_as_needed} active Mucinex 600 MG eCW1 ([facility]) 12 HR Guaifenesin 600 MG Extended Release Oral Tablet [Mucinex] Mucinex 600 MG Mucinex 600 MG 02/01/2020 12:00:00 AM EDT 1.0 {tablet_as_needed} active Mucinex 600 MG eCW1 ([facility]) doxycycline hyclate 100 MG Oral Tablet Doxycycline Hyc late 100 MG Doxycycline Hyclate 100 MG 02/01/2020 12:00:00 AM EDT 1.0 {tablet} active Doxycycline Hyclate 100 MG eCW1 ([facility]) 12 HR Guaifenesin 600 MG Extended Release Oral Tablet [Mucinex] Mucinex 600 MG Mucinex 600 MG 02/01/2020 12:00:00 AM EDT 1.0 {tablet_as_needed} active Mucinex 600 MG eCW1 ([facility]) 12 HR Guaifenesin 600 MG Extended Release Oral Tablet [Mucinex] Mucinex 600 MG Mucinex 600 MG 02/01/2020 12:00:00 AM EDT 1.0 {tablet_as_needed} active Mucinex 600 MG eCW1 ([facility]) 12 HR Guaifenesin 600 MG Extended Release Oral Tablet [Mucinex] Mucinex 600 MG Mucinex 600 MG 02/01/2020 12:00:00 AM EDT 1.0 {tablet_as_needed} active Mucinex 600 MG eCW1 ([facility]) doxycycline hyclate 100 MG Oral Tablet DOXYCYCLINE [...] EVERY DAY SOLD: 12/20/2019 [facility] [place] 12/17/2019 12:00:00 AM EDT active MEDENT ([place] [...] TABLET BY MOUTH EVERY DAY SOLD: 03/25/2020 [facility] Acetaminophen 300 MG / Codeine Phosphate 30 MG Oral Tablet acetaminophen-codeine (TYLENOL #3) 300-30 MG per tablet acetaminophen-codeine (TYLENOL #3) 300-3 0 MG per tablet 11/22/2019 12:00:00 AM EDT 3 {tbl} Oral aborte d Take 3 tablets by mouth daily Daily [facility] sitagliptin 50 MG Oral Tablet [Januvia] JANUVIA 50 MG tablet JANUVIA 50 MG tablet 09/25/2019 12:00:00 AM EDT 1 {tbl} Oral aborted Take 1 tablet by mouth daily [facility] 5 mg 09/22/2019 12:00:00 AM EDT tablet 90 TAKE ONE TABLET BY MOUTH EVERY DAY TAKE ONE TABLET BY MOUTH EVERY DAY SOLD: 12/29/2019 [facility] atorvastatin 20 MG Oral Tablet ATORVASTATIN [...] BY MOUTH AT BEDTIME NEEDED SOLD: 12/18/2019 [facility] 7 ACTUAT umeclidinium 0.0625 MG/ACTUAT D ry Powder Inhaler [Incruse] INCRUSE ELLIPTA 62.5 MCG/INH AEPB INCRUSE ELLIPTA 62.5 MCG/INH AEPB 07/20/2019 12:00:00 AM EDT aborted [facility] 10 mg 02/20/2019 12:00:00 AM EST tablet 90 TAKE ONE TABLET BY MOUTH EVERY DAY TAKE ONE TABLET BY MOUTH EVERY DAY SOLD: 12/01/2019 [facility] Doxepin Hydrochloride 50 MG Oral Capsule doxepin (SINE KRISTINE) 50 MG capsule doxepin (SINEQUAN) 50 MG capsule 02/03/2019 12:00:00 AM EDT 1 {caps ule} Oral aborted Take 1 capsule by mouth n ightly [facility] repaglinide 1 MG Oral Tablet repaglinide (PRANDIN) 1 M G tablet repaglinide (PRANDIN) 1 MG tablet 11/28/2018 12:00:00 AM EDT 0.5 mg Oral aborted Take 0.5 mg by mouth 3 (three) times a day 2 tablets daily after each meal [facility] Carbidopa 25 MG / Levodopa 100 MG Oral T ablet Carbidopa-Levodopa 25-100 MG Oral Tablet (SINEMET) Carbidopa-Levodopa 25-100 MG Oral Tablet (SINEMET) 0.5 {tbl} Oral aborted Take 0.5 tablets by mout h Three times daily [facility] Doxepin Hydrochloride 50 MG Oral Capsule Doxepin HCl 50 MG Oral Capsule (SINEQUAN) Doxepin HCl 50 MG Oral Capsule (SINEQUAN) 100 mg Ora l aborted Take 100 mg by mouth nightly [facility] atorvastatin 20 MG Oral Tablet Atorvastatin Calcium 20 MG Oral Tablet (LIPITOR) Atorvastatin Calcium 20 MG Oral Tablet (LIPITOR) 20 mg Oral aborted Take 20 mg by mouth daily [facility] Bisoprolol Fumarate 5 MG Oral Tablet Bis oprolol Fumarate 5 MG Oral Tablet (ZEBETA) Bisoprolol Fumarate 5 MG Oral Tablet (ZEBETA) 5 mg O ral aborted Take 5 mg by mouth daily [facility] Amlodipine 10 MG Oral Tablet amLODIPine Besylate 10 MG Oral Tablet (NORVASC) amLODIPine Besylate 10 MG Oral Tablet (NORVASC) 10 mg Oral aborted Take 10 mg by mouth daily [facility] pantoprazole 40 MG Delayed Release Oral Tablet Pantoprazole Sodium 40 MG Oral Tablet Delayed Release (PROTONIX) Pantoprazole Sodium 40 MG Oral Tablet De layed Release (PROTONIX) 40 mg Oral aborted Take 40 mg by mouth daily [facility] Bisoprolol Fumarate 5 MG Oral Tablet bisoprolol (ZEBET A) 5 MG tablet bisoprolol (ZEBETA) 5 MG tablet 5 mg Oral aborted Sukumar e 5 mg by mouth daily [facility] atorvastatin 20 MG Oral Tablet atorvastatin (LIPITOR) 20 MG tablet atorvastatin (LIPITOR) 20 MG tablet 20 mg Oral aborted T justyna 20 mg by mouth daily [facility] Insurance Providers Payer name Policy type / Coverage type Policy ID Covered republican ID Covered republican's relationship to sun Policy Sun Plan Information [place] [id number] S [id number] MEDICARE A [id number] Self [id number] MEDICARE [id number] Nancy [id number] A [place] [id number] S [id number] [place] [id number] S [id number] [place] [id number] S [id number] MEDICARE [id number] MEDICARE [id number] Nancy [id number] [place] BCBS [id number] Spo [id number] [place] [id number] S [id number] EXCELLUS BCBS [id number] EXCELL[place] BCBS [id number] Spo [id number] A [place] MED[place] DIVISION [id number] S [id number] [place] MED[place] DIVISION [id number] S [id number] DME Jurisdiction A [facility] C [id number] SELF [id number] Medicare C [id number] SELF [id number] A [place] MEDICARE DIVISION [id number] S [id number] [place] MED[place] DIVISION [id number] S [id number] EXCELLUS BCBS [id number] Spo [id number] EXCELLUS C [id number] Spouse [id number] Blue Cross Blue Shield P [id number] SPOUSE [id number] BLUE CARD C [id number] Spouse [id number] [place] [id number] SPO [id number] [place] [place] [id number] SPO [id number] BLUE CROSS [id number] [place] [id number] SPO [id number] MEDICARE A [id number] Self [id number] ANSI-Medicare Part B [id number] ANSI-Commercial [id number] ANSI-Commercial [id number] ANSI-Medicare Part B [id number] ANSI-Commercial [id number] ANSI-Medicare Part B [id number] ANSI-Commercial [id number] ANSI-Medicare Part B [id number] [place] [id number] SPO [id number] [place] [id number] SPO [id number] ANSI-Medicare Part B [id number] ANSI-Commercial [id number] ANSI-Medicare Part B [id number] ANSI-Commercial [id number] ANSI-Medicare Part B [id number] ANSI-Commercial [id number] ANSI-Commercial [id number] ANSI-Medicare Part B [id number] ANSI-Medicare Part B [id number] ANSI-Commercial [id number] ANSI-Commercial [id number] ANSI-Medicare Part B [id number] ANSI-Commercial [id number] ANSI-Medicare Part B [id number] [facility] [id number] Self [id number] [place] [id number] Self [id number] [facility] [id number] [place]/[facility] Medicare Primary [id number] Self 1 [id number] [facility] [id number] Family Dependent R [id number] ANSI-Commercial [id number] ANSI-Medicare Part B [id number] ANSI-Commercial [id number] ANSI-Medicare Part B [id number] ANSI-Medicare Part B [id number] ANSI-Commercial [id number] ANSI-Commercial [id number] ANSI-Medicare Part B [id number] ANSI-Commercial [id number] ANSI-Medicare Part B [id number] ANSI-Medicare Part B [id number] ANSI-Commercial [id number] ANSI-Commercial [id number] ANSI-Medicare Part B [id number]-5it2-p454-1473e1660cs5 3h442r22-e94n-1fk7-r336-9144c5893xa9 ANSI-Medicare Part B c48kd454-u0i9-859s-0731-339ds58p4c39 c87jd307-o0q4-338e-6841-647ii43m3a62 ANSI-Commercial n08c2o1f-4r9c-29h1-1tnb-1a2935157deh r15l0i0u-5i3s-64q0-5rmo-4x2721264ndx Fed Plan Medigap Part B [id number] 2.160.1.932459.3.227.99 .991.953208.0 Self [id number] Medicare [place] Primary [id number]9.991.653702.0 Self [id number] ANSI-Medicare Part B [id number]-238j-[id number] 9s5vp465-x336-7e0m-037p-1v6im015c193 ANSI-Commercial 26kp0r0l-9k47-4804-7193-324795u0l1p3 02ag2n9i-6p98-2479-2702-465925u1u4p8 [facility] [id number] 2.0.1.925598.3.227.99.86 46.4787.0 [id number] ANSI-Medicare Part B [id number]-i75z-0ngp-6m57-88rh991mjy1j 45v9k91p-d66a-0lfl-2g57-23ok301lms4g ANSI-Commercial o5r1q249-mi5b-0fa4-65b6-35o718r842cg k4x3j188-ma0d-5sn9-61d5-92u977t299ow ANSI-Commercial ib8c27c4-6z41-70qz-e0g9-33b05vo0el1i fj8y90m0-9b35-35lp-h8u7-34v22pa7cm9w ANSI-Medicare Part B [id number]512 2156z805-a435-06l7-4a96-7m74763z5128 ANSI-Medicare Part B [id number]-z0225lr4r56i 9y830299-4e20-70v2-3e78-z5900oo3i10f ANSI-Commercial ak178tf6-aq3g-37a1-si18-0c9em9c2t8y0 iv232lb4-ig1x-08o0-wz32-5k2rs0c4u3t9 ANSI-Commercial 6j133442-2659-6x6z-x7g7-46570hm3sc26 8z591234-6338-5i4i-j3j1-52650dn3hc16 ANSI-Medicare Part B g89820w0-88h3-17w2-037j-s070i9940j0d g28372q8-72o2-11s7-593l-h893z7666v5y ANSI-Medicare Part B 39k44f48-168n-0254-k675-1l6h68ap3xm1 28u35f82-736h-1958-r457-4t3z50dw1aq6 ANSI-Commercial 08biz09g-k1ia-75g7-1dq3-6pg0137f0aik 04ika54b-l1mw-23q0-0pm6-6ps3442c1ozr [facility] Part B [id number] 2.16.840.1.307951.3.227.99.86 46.4787.0 [id number] ANSI-Commercial d88810y3-27y6-6u97-el31-8m9q8328z83v g10274l3-01c5-2n01-ha97-8f3x8919r74b ANSI-Medicare Part B d81e4x3m-9rd5-019y-6a29-e30tu815658w h87c8t2u-8zw3-423d-9h85-i01wj805458m ANSI-Commercial 81021290-x4u3-891j-l02j-o3ddehh88z24 46955889-h1j6-833w-a47t-v1gcnuj93q16 ANSI-Medicare Part B 618b4wkn-r3w8-5390-w3c5-b279h2rpb1hl 537m5red-r3z8-8937-q8y8-s602m2erb9am [employer] Medigap Part B [id number] 2.16.0.1.426735.3.227.99.86 46.4787.0 [id number] Medicare [facility] Medicare Primary [id number]9.8646.4787.0 Self 1 [id number] ANSI-Commercial lj739r13-t986-47mn-mc28-l6n7rc5x0edx il327p08-q084-43qh-dr99-b8q8wj5y7dnc ANSI-Medicare Part B [id number]-66y4-2j2c-6474-3f824d29s530 3c05e41x-34e6-4a2w-4794-2d271i48t670 MEDICARE [id number] ANSI-Commercial 067b1907-6po9-9457-ck57-714p42vm69bd 409i7826-6qz2-5509-xf35-254a89px31gk ANSI-Medicare Part B [id number]-7294-62ev-y0i63l91z46z 3q492lc0-761c-0777-28yf-i4v15g19z04c ANSI-Commercial m154851k-t580-8m20-bye2-j35ay819v9c5 q592900u-f987-4u26-mhh0-c16dn737v5w4 ANSI-Medicare Part B h2v19wpa-7f50-3m12-e139-1o19b677nd70 g9i05xho-2q94-4r73-z415-7w78e919sd77 ANSI-Commercial 491b445k-6z8i-8k9z-9092-sr2qu025mn0l 611u452z-4z3i-3l8c-8827-ur8og649ix8c ANSI-Medicare Part B [id number]-5051-k8do-852154k28rw6 0805r886-4pab-2444-y9bk-890034l93qv9 ANSI-Commercial [id number] ANSI-Medicare Part B [id number] ANSI-Medicare Part B [id number] ANSI-Commercial [id number] ANSI-Commercial [id number] ANSI-Medicare Part B [id number] ANSI-Commercial [id number] ANSI-Medicare Part B [id number] Fed Plan Medigap Part B [id number] .[id number] .[id number] Self [id number] [place] [id number] Self [id number] MEDICARE [id number] SELF [id number] A [facility] Medigap Part B [id number] 46.4787.0 [id number] BS Fed Plan Medigap Part B [id number] .991.824188.0 Self [id number] [place] Primary [id number] Self [id number] [employer] Medigap Part B [id number] 46.4787.0 [id number] BS Fed Plan Medigap Part B [id number] .[id number] Self [id number] [place] Primary [id number] Self [id number] [employer] Medigap Part B [id number] 46.4787.0 [id number] Blue Shield [facility] Medigap Part B [id number] Family Dependent R [id number] EXCELLUS BS FEDERAL [id number] WI2 [id number] [employer]BS Medigap Part B [id number] 46.4787.0 [id number] MEDICARE [id number] SELF [id number] A BC BS [place] FEDERAL B [id number] P [id number] MEDICARE C [id number] P [id number] A MEDICARE [id number] SP [id number] [employer] Medigap Part B [id number] 46.4787.0 [id number] BS Fed Plan Medigap Part B [id number] .[id number] Self [id number] [place] Primary [id number] Self [id number] [employer]BS FEDERAL [id number] [place]2 [id number] [employer]BS Medigap Part B [id number] 46.4787.0 [id number] [employer] BCBS Medigap Part B [id number] Blue [facility] Federal Medigap Part B [id number] Family Dependen t Medicare [facility] Medicare Primary [id number] Self BS Fed Plan Medigap Part B [id number] Self Medicare [place] Primary [id number] Self [employer] BCBS FEDERAL [id number] WI2 [id number] EXCELL[employer] BCBS FEDERAL [id number] WI2 [id number] BC BS [place] FEDERAL [id number] WI2 [id number] BC BS [place] FEDERAL [id number] WI2 [id number] [employer]BS FEDERAL [id number] WI2 [id number] BC FEDERAL EMPLOYEE PROGRAM [id number] WI2 [id number] [facility] FEDERAL EMPLOYEE PROGRAM [id number] WI2 [id number] BC FEDERAL EMPLOYEE PROGRAM [id number] WI2 [id number] [facility] FEDERAL EMPLOYEE PROGRAM [id number] WI2 [id number] [facility] [id number] SP [id number] MEDICARE C [id number] S [id number] [facility] O [id number] S [id number] [facility] [id number] S [id number] MEDICARE [place] [id number] S [id number] BC BS [place] FED[place]AL B [id number] S [id number] [place] MEDICARE DIV[employer] [id number] S [id number] [place]ICARE [place] [id number] S [id number] BCBS [place] [id number] SPO [id number] [place] MEDICARE DIVISION [id number] S [id number] MEDICARE [place] [id number] S [id number] ANSI-Commercial [id number] ANSI-Medicare Part B [id number] ANSI-Commercial [id number] ANSI-Medicare Part B [id number] ANSI-Medicare Part B [id number] ANSI-Commercial [id number] ANSI-Commercial [id number] ANSI-Medicare Part B [id number] [facility] [id number] Self [id number] Medicare [place] Primary [id number] Self [id number] [facility] Part B [id number] Family Dependent [id number] Medicare [place] Medicare Primary [id number] Self [id number] Problems, Conditions, and Diagnoses Code Display Name Description Problem Type Effective Dates Data Source(s) E10.9 Type 1 diabetes mellitus without complic ations TYPE 1 DIABETES MELLITUS WITHOUT COMPLICATIONS Diagnosis 11/04/2020 02:31:00 PM [facility] R55 Syncope and collapse SYNCOPE AND COLLAPSE Diagnosis 11/04/2020 02:31:00 PM [facility] I10 Essential (primary) hypertension ESSENTIAL (PRIMARY) H YPERTENSION Diagnosis 11/04/2020 02:31:00 PM [facility] I71.2 Thoracic aortic aneurysm, without ruptur e THORACIC AORTIC ANEURYSM, WITHOUT RUPTURE Diagnosis 11/04/2020 02:31:00 PM [facility] N18.30 CHRONIC KIDNEY DISEASE, STAGE 3 UNSPECIF IED CHRONIC KIDNEY DISEASE, STAGE 3 UNSPECIFIED Diagnosis 11/04/2020 02:31:00 PM [facility] J44.9 Chronic obstructive pulmonary disease, u nspecified CHRONIC OBSTRUCTIVE PULMONARY DISEASE, UNSPECIFIED Diagnosis 11/04/2020 02:31:00 PM [facility] I73.9 Peripheral vascular disease, unspecified PERIPHERAL VASCULAR DISEASE, UNSPECIFIED Diagnosis 11/04/2020 02:31:00 PM [facility] E78.5 Hyperlipidemia, unspecified HYPERLIPIDEMIA, UNSPECIFIE D Diagnosis 11/04/2020 02:31:00 PM [facility] I42.9 Cardiomyopathy, unspecified CARDIOMYOPATHY, UNSPECIFIE D Diagnosis 11/04/2020 02:31:00 PM [facility] I25.84 Coronary atherosclerosis due to calcifie d coronary lesion CORONARY ATHEROSCLEROSIS DUE TO CALCIFIED CORONARY Diagnosis 11/04/2020 02:31:0 0 PM [facility] I25.10 Atherosclerotic heart diseas e of [place] coronary artery without angina pectoris ATHSCL HEART DISEASE OF [place] CORONARY ARTERY W/O ANG PCTRS Diagnosis 11/04/2020 02:31:00 PM [facility] G45.9 Transient cerebral ischemic attack, unsp ecified Transient cerebral ischemic attack, unspecified Diagnosis 05/31/2020 01:54:00 AM [facility] TIA TIA Diagnosis 05/30/2020 11:05:11 PM [facility] Z79.51 group home (current) use of inhaled stero ids SHELTER (CURRENT) USE OF INHALED STEROIDS Diagnosis 05/30/2020 10:40:00 PM [facility] 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 Diagnosis 05/30/2020 10:40:00 PM [facility] Z79.82 group home (current) use of aspirin SHELTER (CU RRENT) USE OF ASPIRIN Diagnosis 05/30/2020 10:40:00 PM [facility] Z87.891 Personal history of nicotine dependence PERSONAL HISTORY OF NICOTINE DEPENDENCE Diagnosis 05/30/2020 10:40:00 PM [facility] Z95.5 Presence of coronary angioplasty implant and graft PRESENCE OF CORONARY ANGIOPLASTY IMPLANT AND GRAFT Diagnosis 05/30/2020 10:40:00 PM [facility] Z20.822 CONTACT WITH AND (SUSPECTED) EXPOSURE TO COVID-19 CONTACT WITH AND (SUSPECTED) EXPOSURE TO COVID-19 Diagnosis 05/30/2020 10:40:00 PM [facility] I13.0 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 failure and stage 1 through stage 4 chronic kidney disease, or unspecified chronic kidney disease HYP HRT CHR KDNY DIS W HRT FAIL AND STG 1-4/UNSP Diagnosis 05/30/2020 10:40:00 PM [facility] I50.9 Heart failure, unspecified HEART FAILURE, UNSPECIFIED Diagnosis 05/30/2020 10:40:00 PM [facility] E11.9 Type 2 diabetes mellitus without complic ations TYPE 2 DIABETES MELLITUS WITHOUT COMPLICATIONS Diagnosis 05/30/2020 10:40:00 PM [facility] G45.9 Transient cerebral ischemic attack, unsp ecified TRANSIENT CEREBRAL ISCHEMIC ATTACK, UNSPECIFIED Diagnosis 05/30/2020 10:40:00 PM [facility] R41.82 Altered mental status, unspecified ALTERED MENTA L STATUS, UNSPECIFIED Diagnosis 05/30/2020 10:40:00 PM [facility] I10 Essential (primary) hypertension Essential (primary) h ypertension Diagnosis 03/04/2020 02:16:50 PM [facility] I71.2 Thoracic aortic aneurysm, without ruptur e Thoracic aortic aneurysm, without ruptur Diagnosis 03/04/2020 02:16:50 PM [facility] I25.84 Coronary atherosclerosis due to calcifie d coronary lesion Coronary atherosclerosis due to calcifie Diagnosis 03/04/2020 02:16:50 PM [facility] I25.10 Atherosclerotic heart diseas e of [place] coronary artery without angina pectoris Atherosclerotic heart disease of [place] Diagnosis 03/04/2020 02:16:50 PM [facility] I42.9 Cardiomyopathy, unspecified Cardiomyopathy, unspecifie d Diagnosis 03/04/2020 02:16:50 PM [facility] E10.9 Type 1 diabetes mellitus without complic ations Type 1 diabetes mellitus without complic Diagnosis 02/19/2020 08:00:31 AM [facility] R55 Syncope and collapse Syncope and collapse Diagnosis 02/19/2020 08:00:31 AM [facility] N18.30 Chronic kidney disease, stage 3 unspecif ied Chronic kidney disease, stage 3 unspecif Diagnosis 02/19/2020 08:00:31 AM [facility] J44.9 Chronic obstructive pulmonary disease, u nspecified Chronic obstructive pulmonary disease, u Diagnosis 02/19/2020 08:00:31 AM [facility] I73.9 Peripheral vascular disease, unspecified Peripheral vascular disease, unspecified Diagnosis 02/19/2020 08:00:31 AM [facility] E78.5 Hyperlipidemia, unspecified Hyperlipidemia, unspecifie d Diagnosis 02/19/2020 08:00:31 AM [facility] Z87.310 Personal history of (healed) osteoporosi s fracture PERSONAL HISTORY OF (HEALED) OSTEOPOROSI Diagnosis 12/18/2019 01:00:[facility] M[facility].0 Age-related osteoporosis without current pathological fracture AGE-RELATED OSTEOPOROSIS W/O CURRENT PATHOLOGICAL FRACTURE Diagnosis 2019 01:00:00 PM EDT [facility] N18.3 Chronic kidney disease, stage 3 (moderat e) CHRONIC KIDNEY DISEASE, STAGE 3 (MODERATE) Diagnosis 12/04/2019 08:54:00 AM EDT [facility] N18.3 Chronic kidney disease, stage 3 (moderat e) Chronic kidney disease, stage 3 (moderat Diagnosis 12/04/2019 07:22:20 AM EDT [facility] B37.0 [id number] Thrush Problem 12/19/2020 12:00:00 AM ED T eCW1 ([facility]) C44.41 [id number] Basal cell carcinoma of left side of neck Problem 12/03/2020 12:00:00 AM EDT eCW1 ([facility]) C44.319 [id number] Basal cell carcinoma of right preauricula r region Problem 11/27/2020 12:00:00 AM EDT eCW1 ([facility]) C44.212 [id number] Basal cell carcinoma of right postauricul ar region Problem 11/27/2020 12:00:00 AM EDT eCW1 ([facility]) M48.062 [id number] Spinal stenosis of lumbar region with neurogenic claudication Problem 10/15/2020 12:00:00 AM EDT eCW1 ([facility]) N20.0 35519450 Renal calculus, bilateral Problem 09/23/2020 12:00:00 AM EDT eCW1 ([facility]) R39.12 [id number] Poor urinary stream Problem 09/23/2020 12:00 :00 AM EDT eCW1 ([facility]) N28.1 [id number] Renal cysts, acquired, bilateral Problem 09/23/2020 12:00:00 AM EDT eCW1 ([facility]) I50.20 HFrEF (heart failure with reduced ejecti on fraction) HFrEF (heart failure with reduced ejection fraction) [id number] 07/18/2020 12:00:00 AM EDT [facility] N40.1 [id number] Benign prostatic hyp erplasia with lower urinary tract symptoms Problem 06/23/2020 12:00:00 AM EDT eCW1 ([facility]ending [facility] to [facility]) F02.80 249391648 Dementia in other di seases classified elsewhere without behavioral disturbance Problem 06/19/2020 12:00:00 AM EDT eCW1 ([facility]) Z79.4 [id number] Long-term insulin use Problem 06/19/2020 12: 00:00 AM EDT eCW1 ([facility]) N18.9 Chronic kidney disease Chronic kidney disease [id number] 06/02/2020 12:00:00 AM EST [facility] J44.9 COPD (chronic obstructive pulmonary dise ase) COPD (chronic obstructive pulmonary disease) 84910187 06/02/2020 12:00:00 AM EST [facility] I25.10 Atherosclerosis of coronary artery Atheroscleros is of coronary artery 04024533 06/02/2020 12:00:00 AM EST [facility] [id number] Pain in lower limb Pain in lower limb Problem 12:00:00 AM EST MEDENT ([facility]) 5051252 Lumbosacral radiculopathy Lumbosacral radiculopathy Pr oblem 02/21/2020 12:00:00 AM EST MEDENT ([facility]) 459373029 Chronic low back pain Chronic low back pain Problem 02/21/2020 12:00:00 AM EST MED[facility] ([facility]) S61.402D [id number] Unspecified open wou nd of left hand, subsequent encounter Problem 01/15/2020 12:00:00 AM EDT eCW1 ([facility]ending [facility] to [facility]) S81.002D [id number] Unspecified open wou nd, left knee, subsequent encounter Problem 01/15/2020 12:00:00 AM EDT eCW1 ([facility]ending sale to [facility]) S51.802D [id number] Unspecified open wou nd of left forearm, subsequent encounter Problem 01/02/2020 12:00:00 AM EDT eCW1 ([facility]ending sale to [facility]) S61.201D [id number] Unspecified open wou nd of left index finger without damage to nail, subsequent encounter Problem 01/02/2020 12:00:00 AM EDT eCW1 ([facility]) S81.801D [id number] Unspecified open wou nd, right lower leg, subsequent encounter Problem 01/02/2020 12:00:00 AM EDT eCW1 ([facility]ending [facility] to [facility]) S81.001D [id number] Unspecified open wou nd, right knee, subsequent encounter Problem 01/02/2020 12:00:00 AM EDT eCW1 ([facility]ending sale to [facility]) S51.001D [id number] Unspecified open wou nd of right elbow, subsequent encounter Problem 01/02/2020 12:00:00 AM EDT eCW1 ([facility]ending sale to [facility]) S41.102D [id number] Unspecified open wou nd of left upper arm, subsequent encounter Problem 01/02/2020 12:00:00 AM EDT eCW1 ([facility]ending [facility] to [facility]) S51.801D [id number] Unspecified open wou nd of right forearm, subsequent encounter Problem 01/02/2020 12:00:00 AM EDT eCW1 ([facility]ending [facility] to [facility]) S51.002D [id number] Unspecified open wou nd of left elbow, subsequent encounter Problem 01/02/2020 12:00:00 AM EDT eCW1 ([facility]ending [facility] to [facility]) Surgeries/Procedures Procedure Description Date Indications Data Source(s) OFFICE OUTPATIENT VISIT 25 MINUTES 01/15/2021 12:00:00 AM EDT MEDENT ([facility]) Spirometry 12/31/2020 12:00:00 AM EDT M EDCRAIG ([facility], ) OFFICE OUTPATIENT VISIT 25 MINUTES 12/31/2020 12:00:00 AM EDT [facility] ([facility], ) OFFICE OUTPATIENT VISIT 25 MINUTES 12/22/2020 12:00:00 AM EDT [facility] ([facility]) Suture Removal 12/10/2020 12:00:00 AM EDT eCW1 ([facility]) Diabetic Foot Exam 12/04/2020 12:00:00 AM EDT [facility] ([facility] ) Suture Removal 12/03/2020 12:00:00 AM EDT eCW1 ([facility]) Med: Derm Lidocaine with Epinephrine Inj ection 1% with 2 ml sodium bicarbonate Intradermally to marked areas 12/03/2020 12:00:00 AM EDT eCW1 ([facility]) Med: Derm Lidocaine with Epinephrine Inj ection 1% with 2 ml sodium bicarbonate Intradermally to marked areas 11/27/2020 12:00:00 AM EDT eCW1 ([facility]) OFFICE OUTPATIENT VISIT 15 MINUTES 11/06/2020 12:00:00 AM EDT MEDCRAIG ([facility] ) DESTRUCTION PREMALIGNANT LESION 1ST 10/01/2020 12:00:0 0 AM EDT MEDENT ([facility]) DESTRUCTION PREMALIGNANT LESION 2-14 EA 10/01/2020 12: 00:00 AM EDT [facility] ([facility]) Shave Biopsy Of Skin, Single Lesion 09/09/2020 12:00:0 0 AM EDT MEDENT ([facility]) Each Separate/Additional Lesion 09/09/2020 12:00:00 AM EDT MEDCRAIG ([facility]) OFFICE OUTPATIENT VISIT 25 MINUTES 09/09/2020 12:00:00 AM EDT MEDCRAIG ([facility]) OFFICE OUTPATIENT VISIT 25 MINUTES 09/02/2020 12:00:00 AM EDT MEDCRAIG ([facility] ) OFFICE OUTPATIENT VISIT 25 MINUTES 08/25/2020 12:00:00 AM EDT MEDCRAIG ([facility]) Spirometry 06/24/2020 12:00:00 AM EDT LORNA ([facility], ) OFFICE OUTPATIENT VISIT 25 MINUTES 06/24/2020 12:00:00 AM EDT MEDCRAIG ([facility], ) POCT GLUCOSE, DOCKED <td>POCT GLUCOSE, DOCKED</td ><td>Routine</td><td>06/05/2020 8:13 AM EST</td><td></td><td> </td> 06/05/2020 08:13:00 AM [facility] BLOOD COUNT COMPLETE AUTO&AUTO DIFRNTL WBC COUNT <td>C BC AND DIFFERENTIAL</td><td>Routine</td><td>06/05/2020 4:59 AM EST</td><td></td><td> </td> 06/05/2020 04:59:00 AM [facility] GLUCOSE QUANTITATIVE BLOOD XCPT REAGENT STRIP <td>POCT GLUCOSE, DOCKED</td><td>Routine</td><td>06/04/2020 9:02 PM EST</td><td></td><td> </td> 06/04/2020 09:02:00 PM [facility] URNLS DIP STICK/TABLET REAGENT AUTO MICROSCOPY <td>URI NALYSIS WITH MICROSCOPIC</td><td>Routine</td><td>06/04/2020 5:53 PM EST</td><td></td><td> </td> 06/04/2020 05:53:00 PM [facility] GLUCOSE QUANTITATIVE BLOOD XCPT REAGENT STRIP <td>POCT GLUCOSE, DOCKED</td><td>Routine</td><td>06/04/2020 5:12 PM EST</td><td></td><td> </td> 06/04/2020 05:12:00 PM [facility] AMMONIA <td>AMMONIA LEVEL</td><td>Ro utine</td><td>06/04/2020 12:10 PM EST</td><td></td><td> </td> 06/04/2020 12:10:00 PM [facility] HEPATIC FUNCTION PANEL <td>HEPATIC FUNCTION PANEL A</td><td>Routine</td><td>06/04/2020 12:10 PM EST</td><td></td><td> </td> 06/04/2020 12:10:00 PM [facility] BASIC METABOLIC PANEL CALCIUM TOTAL <td>BASIC METABOLI C PANEL</td><td>Routine</td><td>06/04/2020 12:10 PM EST</td><td></td><td> </td> 06/04/2020 12:10:00 PM [facility] GLUCOSE QUANTITATIVE BLOOD XCPT REAGENT STRIP <td>POCT GLUCOSE, DOCKED</td><td>Routine</td><td>06/04/2020 12:01 PM EST</td><td></td><td> </td> 06/04/2020 12:01:00 PM [facility] GLUCOSE QUANTITATIVE BLOOD XCPT REAGENT STRIP <td>POCT GLUCOSE, DOCKED</td><td>Routine</td><td>06/04/2020 8:04 AM EST</td><td></td><td> </td> 06/04/2020 08:04:00 AM [facility] MRI BRAIN BRAIN STEM W/O CONTRAST MATERIAL <td>MR BRAI N WITHOUT CONTRAST [id number]</td><td>Pending Discharge</td><td>06/04/2020 5:20 AM EST</td><td></td><td></td> 06/04/2020 05:20:41 AM EST [facility] BLOOD COUNT COMPLETE AUTO&AUTO DIFRNTL WBC COUNT <td>C BC AND DIFFERENTIAL</td><td>Routine</td><td>06/04/2020 4:42 AM EST</td><td></td><td> </td> 06/04/2020 04:42:00 AM [facility] GLUCOSE QUANTITATIVE BLOOD XCPT REAGENT STRIP <td>POCT GLUCOSE, DOCKED</td><td>Routine</td><td>06/03/2020 9:01 PM EST</td><td></td><td> </td> 06/03/2020 09:01:00 PM [facility] EEG ROUTINE STUDY <td>EEG ROUTINE STUDY</td><t d>Routine</td><td>06/03/2020 5:11 PM EST</td><td></td><td> </td> 06/03/2020 05:11:04 PM [facility] GLUCOSE QUANTITATIVE BLOOD XCPT REAGENT STRIP <td>POCT GLUCOSE, DOCKED</td><td>Routine</td><td>06/03/2020 4:34 PM EST</td><td></td><td> </td> 06/03/2020 04:34:00 PM [facility] BASIC METABOLIC PANEL CALCIUM TOTAL <td>BASIC METABOLI C PANEL</td><td>STAT</td><td>06/03/2020 2:17 PM EST</td><td></td><td> </td> 06/03/2020 02:17:00 PM [facility] GLUCOSE QUANTITATIVE BLOOD XCPT REAGENT STRIP <td>POCT GLUCOSE, DOCKED</td><td>Routine</td><td>06/03/2020 2:16 PM EST</td><td></td><td> </td> 06/03/2020 02:16:00 PM [facility] GLUCOSE QUANTITATIVE BLOOD XCPT REAGENT STRIP <td>POCT GLUCOSE, DOCKED</td><td>Routine</td><td>06/03/2020 1:42 PM EST</td><td></td><td> </td> 06/03/2020 01:42:00 PM [facility] GLUCOSE QUANTITATIVE BLOOD XCPT REAGENT STRIP <td>POCT GLUCOSE, DOCKED</td><td>Routine</td><td>06/03/2020 11:31 AM EST</td><td></td><td> </td> 06/03/2020 11:31:00 AM [facility] RESPIRATORY PATHOGEN PANEL <td>RESPIRATORY PATHOGEN PANEL</td><td>Routine</td><td>06/03/2020 10:39 AM EST</td><td></td><td> </td> 06/03/2020 10:39:00 AM [facility] COVID-19 PCR <td>COVID-19 PCR</td><td>Rou alejandro</td><td>06/03/2020 10:39 AM EST</td><td></td><td> </td> 06/03/2020 10:39:00 AM [facility] ECHOCARDIOGRAM COMPLETE WITH BUBBLE STUDY <td>ECHOCARD IOGRAM COMPLETE WITH BUBBLE STUDY</td><td>Routine</td><td>06/03/2020 10:07 AM EST</td><td></td><td> </td> 06/03/2020 10:07:25 AM [facility] GLUCOSE QUANTITATIVE BLOOD XCPT REAGENT STRIP <td>POCT GLUCOSE, DOCKED</td><td>Routine</td><td>06/03/2020 7:44 AM EST</td><td></td><td> </td> 06/03/2020 07:44:00 AM [facility] BLOOD COUNT COMPLETE AUTO&AUTO DIFRNTL WBC COUNT <td>C BC AND DIFFERENTIAL</td><td>Routine</td><td>06/03/2020 1:44 AM EST</td><td></td><td> </td> 06/03/2020 01:44:00 AM [facility] GLUCOSE QUANTITATIVE BLOOD XCPT REAGENT STRIP <td>POCT GLUCOSE, DOCKED</td><td>Routine</td><td>06/02/2020 10:32 PM EST</td><td></td><td> </td> 06/02/2020 10:32:00 PM [facility] GLUCOSE QUANTITATIVE BLOOD XCPT REAGENT STRIP <td>POCT GLUCOSE, DOCKED</td><td>Routine</td><td>06/02/2020 4:56 PM EST</td><td></td><td> </td> 06/02/2020 04:56:00 PM [facility] GLUCOSE QUANTITATIVE BLOOD XCPT REAGENT STRIP <td>POCT GLUCOSE, DOCKED</td><td>Routine</td><td>06/02/2020 12:11 PM EST</td><td></td><td> </td> 06/02/2020 12:11:00 PM [facility] GLUCOSE QUANTITATIVE BLOOD XCPT REAGENT STRIP <td>POCT GLUCOSE, DOCKED</td><td>Routine</td><td>06/02/2020 8:31 AM EST</td><td></td><td> </td> 06/02/2020 08:31:00 AM [facility] BLOOD COUNT COMPLETE AUTO&AUTO DIFRNTL WBC COUNT <td>C BC AND DIFFERENTIAL</td><td>Routine</td><td>06/02/2020 6:32 AM EST</td><td></td><td> </td> 06/02/2020 06:32:00 AM [facility] GLUCOSE QUANTITATIVE BLOOD XCPT REAGENT STRIP <td>POCT GLUCOSE, DOCKED</td><td>Routine</td><td>06/01/2020 9:28 PM EST</td><td></td><td> </td> 06/01/2020 09:28:00 PM [facility] GLUCOSE QUANTITATIVE BLOOD XCPT REAGENT STRIP <td>POCT GLUCOSE, DOCKED</td><td>Routine</td><td>06/01/2020 4:36 PM EST</td><td></td><td> </td> 06/01/2020 04:36:00 PM [facility] GLUCOSE QUANTITATIVE BLOOD XCPT REAGENT STRIP <td>POCT GLUCOSE, DOCKED</td><td>Routine</td><td>06/01/2020 12:04 PM EST</td><td></td><td> </td> 06/01/2020 12:04:00 PM [facility] GLUCOSE QUANTITATIVE BLOOD XCPT REAGENT STRIP <td>POCT GLUCOSE, DOCKED</td><td>Routine</td><td>06/01/2020 8:20 AM EST</td><td></td><td> </td> 06/01/2020 08:20:00 AM [facility] BLOOD COUNT COMPLETE AUTO&AUTO DIFRNTL WBC COUNT <td>C BC AND DIFFERENTIAL</td><td>Routine</td><td>06/01/2020 6:23 AM EST</td><td></td><td> </td> 06/01/2020 06:23:00 AM [facility] BASIC METABOLIC PANEL CALCIUM TOTAL <td>BASIC METABOLI C PANEL</td><td>Routine</td><td>06/01/2020 6:23 AM EST</td><td></td><td> </td> 06/01/2020 06:23:00 AM [facility] GLUCOSE QUANTITATIVE BLOOD XCPT REAGENT STRIP <td>POCT GLUCOSE, DOCKED</td><td>Routine</td><td>05/31/2020 9:25 PM EST</td><td></td><td> </td> 05/31/2020 09:25:00 PM [facility] GLUCOSE QUANTITATIVE BLOOD XCPT REAGENT STRIP <td>POCT GLUCOSE, DOCKED</td><td>Routine</td><td>05/31/2020 5:09 PM EST</td><td></td><td> </td> 05/31/2020 05:09:00 PM [facility] GLUCOSE QUANTITATIVE BLOOD XCPT REAGENT STRIP <td>POCT GLUCOSE, DOCKED</td><td>Routine</td><td>05/31/2020 1:10 PM EST</td><td></td><td> </td> 05/31/2020 01:10:00 PM [facility] MRA NECK W/O CONTRST MATERIAL <td>MR ANGIOGRAPHY NECK WITHOUT CONTRAST [id number]</td><td>STAT</td><td>05/31/2020 12:36 PM EST</td><td></td><td> </td> 05/31/2020 12:36:00 PM [facility] MRA HEAD W/O CONTRST MATERIAL <td>MR ANGIOGRAPHY HEAD WITHOUT CONTRAST [id number]</td><td>Routine</td><td>05/31/2020 12:36 PM EST</td><td></td><td> </td> 05/31/2020 12:36:00 PM [facility] MRI BRAIN BRAIN STEM W/O CONTRAST MATERIAL <td>MR BRAI N WITHOUT CONTRAST [id number]</td><td>Pending Discharge</td><td>05/31/2020 12:36 PM EST</td><td></td><td> </td> 05/31/2020 12:36:00 PM [facility] GLUCOSE QUANTITATIVE BLOOD XCPT REAGENT STRIP <td>POCT GLUCOSE, DOCKED</td><td>Routine</td><td>05/31/2020 8:05 AM EST</td><td></td><td> </td> 05/31/2020 08:05:00 AM [facility] PLATELET AGGREGATION IN VITRO EACH AGENT <td>VERIFYNOW ASPIRIN</td><td>Routine</td><td>05/31/2020 6:34 AM EST</td><td></td><td> </td> 05/31/2020 06:34:00 AM [facility] PROTHROMBIN TIME <td>PROTIME INR</td><td>Rout ine</td><td>05/31/2020 3:37 AM EST</td><td></td><td> </td> 05/31/2020 03:37:00 AM [facility] BLOOD COUNT COMPLETE AUTO&AUTO DIFRNTL WBC COUNT <td>C BC AND DIFFERENTIAL</td><td>Routine</td><td>05/31/2020 3:37 AM EST</td><td></td><td> </td> 05/31/2020 03:37:00 AM [facility] THYROID STIMULATING HORMONE TSH <td>TSH</td><td>Routin e</td><td>05/31/2020 3:37 AM EST</td><td></td><td> </td> 05/31/2020 03:37:00 AM [facility] HEMOGLOBIN GLYCOSYLATED A1C <td>HEMOGLOBIN A1C</td><td>Routine</td><td>05/31/2020 3:37 AM EST</td><td></td><td> </td> 05/31/2020 03:37:00 AM [facility] LIPID PANEL <td>LIPID PANEL</td><td>Rout ine</td><td>05/31/2020 3:37 AM EST</td><td></td><td> </td> 05/31/2020 03:37:00 AM [facility] COMPREHENSIVE METABOLIC PANEL <td>COMPREHENSIVE METABO LIC PANEL</td><td>Routine</td><td>05/31/2020 3:37 AM EST</td><td></td><td> </td> 05/31/2020 03:37:00 AM [facility] GLUCOSE QUANTITATIVE BLOOD XCPT REAGENT STRIP <td>POCT GLUCOSE, DOCKED</td><td>Routine</td><td>05/31/2020 2:21 AM EST</td><td></td><td> </td> 05/31/2020 02:21:00 AM [facility] EEG Complete STD Phys/QHP>60 HR<84 HR W/O Video 2019 12:00:00 AM EST [facility] ([facility], ) EEG Complete STD Phys/QHP>60 HR<84 HR W/O Video 2019 12:00:00 AM EST [facility] ([facility], ) FINE NEEDLE ASPIRATION W/O IMAGING GUIDANCE 03/06/2020 12:00:00 AM EST eCW1 ([facility]) Needle electromyography, each extremity, with related paraspinal areas, when performed, done with nerve conduction, amplitude and latency/velocity study; complete, five or more muscles studied, innervated by three or more nerves or four or more spinal levels (list separately in addition to the code for primary procedure). 02/21/2020 12:00:00 AM EST MEDEN T ([facility], ) Needle electromyography, each extremity, with related paraspinal areas, when performed, done with nerve conduction, amplitude and latency/velocity study; complete, five or more muscles studied, innervated by three or more nerves or four or more spinal levels (list separately in addition to the code for primary procedure). 02/21/2020 12:00:00 AM EST MEDEN T ([facility], ) [id number] Nerve conduction studies 13 or more studies NEW 201202/21/2020 12:00:00 AM EST [facility] ([facility], ) FINE NEEDLE ASPIRATION W/O IMAGING GUIDANCE 02/21/2020 12:00:00 AM EST eCW1 ([facility]) FINE NEEDLE ASPIRATION W/O IMAGING GUIDANCE 02/14/2020 12:00:00 AM EST eCW1 ([facility]) TSTG ANS FUNCJ CARDIOVAGAL INNERVAJ PARASYMP 0 12:00:00 AM EST [facility] ([facility], ) TSTG ANS FUNCJ CARDIOVAGAL INNERVAJ PARASYMP 0 12:00:00 AM EST [facility] ([facility], ) TESTING AUTONOMIC NERVOUS SYSTEM FUNCTION 02/13/2020 1 2:00:00 AM EST [facility] ([facility], ) TESTING AUTONOMIC NERVOUS SYSTEM FUNCTION 02/13/2020 1 2:00:00 AM EST [facility] FINE NEEDLE ASPIRATION W/O IMAGING GUIDANCE 01/31/2020 12:00:00 AM EDT eCW1 ([facility]) FINE NEEDLE ASPIRATION W/O IMAGING GUIDANCE 01/17/2020 12:00:00 AM EDT eCW1 ([facility]) Immunization: Flublok Quadrivalent (18 years & older) 0.5mL IM (Influenza) 01/11/2020 12:00:00 AM EDT eCW1 ([facility]) FINE NEEDLE ASPIRATION W/O IMAGING GUIDANCE 01/03/2020 12:00:00 AM EDT eCW1 ([facility]) Spirometry 12/24/2019 12:00:00 AM EDT M EDENT ([facility]) Results ID Date Data Source [id number] 12/31/2020 01:16:00 PM EDT [facility] ([facility]) Name Value Range Interpretation Code Description Data Beth rce(s) Supporting Document(s) PDFReport Laboratory test result [facility] ([facility], ) FVC-Pred 3.90 L [facility] ([facility]) FVC-LLN 2.97 L [facility] ([facility]) FVC-Pre 3.45 L [facility] ([facility]) FVC-%Pred-Pre 88 L [facility] ([facility]) Fev1-Pre 1.96 L [facility] ([facility]) Fev1-%Pred-Pre 71 L [facility] ([facility]) Fev1-Pred 2.74 L [facility] ([facility], ) Fev1-LLN 1.95 L [facility] ([facility]) Fev6-Pred 3.62 L [facility] ([facility]) Fev6-Pre 3.42 L [facility] ([facility]) Etq9uov-Xhjg 71 % [facility] ([facility]) Fev6-LLN 2.72 L [facility] ([facility]) Fev6-%Pred-Pre 94 L [facility] ([facility]) Idf1slm-%Pred-Pre 79 % [facility] ([facility]) Srb1ocg-Rjw 57 % [facility] ([facility]) Qft5onx-KWD 61 % [facility] ([facility]) Hpe1brp-Inj 99 % [facility] ([facility]) Coq3wto-Nfch 93 % [facility] ([facility]) FEFMax-Pred 6.85 L/E/sec [facility] ([facility]) FEFMax-Pre 4.57 L/E/sec [facility] ([facility]) Tur1miv-%Pred-Pre 106 % [facility] ([facility]) FEFMax-LLN 4.52 L/E/sec [facility] ([facility]) Bhc9495-Oojs 1.83 L/E/sec [facility] ([facility]) FEFMax-%Pred-Pre 66 L/E/sec [facility] ([facility]) Mra7690-Mkl 0.94 L/E/sec [facility] ([facility]) Akg5778-%Pred-Pre 51 L/E/sec [facility] ([facility]) ExpTime-Pre 6.61 sec [facility] ([facility]) Xyq2427-DXG 0.22 L/E/sec [facility] ([facility]) Oks3ekg4-%Pred-Pre 75 % [facility] ([facility], ) Dpo8oqu9-Fgwo 76 % [facility] ([facility], ) Pqb3zws9-Qyh 57 % [facility] ([facility], ) Ulr7mpf1-RJB 67 % [facility] ([facility], ) ID Date Data Source [id number] 12/22/2020 01:47:00 PM EDT [facility] ([facility]) Name Value Range Interpretation Code Description Data Beth rce(s) Supporting Document(s) Glucose [Mass/volume] in Serum or Plasma 213 [facility] ([facility]) Hemoglobin A1c/Hemoglobin.total in Blood 6.2 [facility] ([facility]) ID Date Data Source [id number] 09/09/2020 01:10:00 PM EDT [facility] ([facility]) Name Value Range Interpretation Code Description Data Beth rce(s) Supporting Document(s) Laboratory test finding (navigational concept) Laboratory test result [facility] ([facility]) A. Refer to Dr. Feng for Mohs [...] finding (navigational concept) Laboratory test result [facility] ([facility]) A. Refer to Dr. Feng for Mohs [...] notes LW 12/10/20 ID Date Data Source [id number] 08/25/2020 01:36:00 PM EDT [facility] ([facility]) Name Value Range Interpretation Code Description Data Beth rce(s) Supporting Document(s) Glucose [Mass/volume] in Serum or Plasma 207 [facility] ([facility]) Hemoglobin A1c/Hemoglobin.total in Blood 6.8 [facility] ([facility]) ID Date Data Source [id number] 06/24/2020 02:39:00 PM EDT [facility] ([facility]) Name Value Range Interpretation Code Description Data Beth rce(s) Supporting Document(s) PDFReport Laboratory test result [facility] ([facility], ) FVC-Pre 2.90 L [facility] ([facility]) FVC-Pred 3.94 L [facility] ([facility]) FVC-%Pred-Pre 73 L [facility] ([facility]) FVC-LLN 3.01 L [facility] ([facility]) Fev1-Pred 2.79 L [facility] ([facility]) Fev1-Pre 1.69 L [facility] ([facility]) Fev1-%Pred-Pre 60 L [facility] ([facility]) Fev1-LLN 2.00 L [facility] ([facility]) Fev6-Pred 3.67 L [facility] ([facility]) Fev6-Pre 2.90 L [facility] ([facility]) Fev6-LLN 2.76 L [facility] ([facility]) Fev6-%Pred-Pre 78 L [facility] ([facility]) Bsk7wnu-Yml 58 % [facility] ([facility]) Oei9sfm-Tqgt 71 % [facility] ([facility]) Feb3ite-PRL 61 % [facility] ([facility]) Gig4yae-%Pred-Pre 81 % [facility] ([facility]) Aun5rns-Ayin 93 % [facility] ([facility]) Qxo7fyw-%Pred-Pre 107 % [facility] ([facility]) Emr0ooz-Zme 100 % [facility] ([facility], ) FEFMax-Pred 6.98 L/E/sec [facility] ([facility], ) FEFMax-Pre 3.94 L/E/sec [facility] ([facility], ) FEFMax-LLN 4.66 L/E/sec [facility] ([facility]) FEFMax-%Pred-Pre 56 L/E/sec [facility] ([facility]) Bfz9792-Hvfp 1.88 L/E/sec [facility] ([facility]) Zgr5608-Pjo 0.89 L/E/sec [facility] ([facility]) ExpTime-Pre 5.39 sec [facility] ([facility]) Lch2086-NAK 0.27 L/E/sec [facility] ([facility]) Ilw2564-%Pred-Pre 47 L/E/sec [facility] ([facility]) Ati8nsz8-Asmw 76 % [facility] ([facility]) Iok8vwc2-Pck 58 % [facility] ([facility]) Xql1bpx1-QKU 67 % [facility] ([facility]) Voi7evj4-%Pred-Pre 76 % [facility] ([facility]) ID Date Data Source [id number] 06/20/2020 01:15:58 PM EDT [facility] Name Value Range Interpretation Code Description Data Beth e(s) Supporting Document(s) Discharge Summary [facility] ZOFMDh9oUsOENfRx81/QTPwpOFAsp7HjHKmcJVg1KDwuHLXjJ5IuKRT0vB6zYKH4VDgBSlEeGwWqArP9 lbm [file] ICAgICAgICAgICAgICAgICAgICAgICAgICAgICAgICAgICAgICAgICAgICAgICAgICAgICAgICAgICAg ICAgICAgICAgICAgICAgDQogICAgICAgICAgICAgIC AgICAgICAgICAgICAgICAgICAgICAgICAgICAgICAgICAgICAgICAgICAgICAgICAgICAgICAgICAgIC AgICAgICAgICAgICAgICAgICAgICAgICAgDQogICAgICAgICAgICAgICAgICAgICAgICAgICAgICAgIC AgICAgICAgICAgICAgICAgICAgICAgICAgICAgICAg ICAgICAgICAgICAgICAgICAgICAgICAgICAgICAgICAgICAgDQogICAgICAgICAgICAgICAgICAgICAg ICAgICAgICAgICAgICAgICAgICAgICAgICAgICAgICAgICAgICAgICAgICAgICAgICAgICAgICAgICAg ICAgICAgICAgICAgICAgICAgDQogICAgICAgICAgIC AgICAgICAgICAgICAgICAgICAgICAgICAgICAgICAgICAgICAgICAgICAgICAgICAgICAgICAgICAgIC AgICAgICAgICAgICAgICAgICAgICAgICAgICAgDQogICAgICAgICAgICAgICAgICAgICAgICAgICAgIC AgICAgICAgICAgICAgICAgICAgICAgICAgICAgICAg ICAgICAgICAgICAgICAgICAgICAgICAgICAgICAgICAgICAgICAgDQogICAgICAgICAgICAgICAgICAg ICAgICAgICAgICAgICAgICAgICAgICAgICAgICAgICAgICAgICAgICAgICAgICAgICAgICAgICAgICAg ICAgICAgICAgICAgICAgICAgICAgDQogICAgICAgIC AgICAgICAgICAgICAgICAgICAgICAgICAgICAgICAgICAgICAgICAgICAgICAgICAgICAgICAgICAgIC AgICAgICAgICAgICAgICAgICAgICAgICAgICAgICAgDQogICAgICAgICAgICAgICAgICAgICAgICAgIC AgICAgICAgICAgICAgICAgICAgICAgICAgICAgICAg ICAgICAgICAgICAgICAgICAgICAgICAgICAgICAgICAgICAgICAgICAgDQogICAgICAgICAgICAgICAg ICAgICAgICAgICAgICAgICAgICAgICAgICAgICAgICAgICAgICAgICAgICAgICAgICAgICAgICAgICAg ZXZcHJTbBDZxQLWlJVWqOXMlZUBuVYTdOFl7S5qdJT EyRNRjIT6kXGw0Nd1+HLfONmZwFNW8rpHnaL4UPB6ur9VlJRqkRPSgi4HrYSv3XW3ZEDIuXVpaHE8ESN pzak5HDMYcKZYndXCSd6lqIaOeRDX8OPPpQndpWO6FFMIhZ5elfiHsEGRdAGEZJPeaJFLFGWhlIHCHSU YzVXWcWyAmPwUaCDRaCDDvCJPTRU3WIjVaU9YxcG22 IDYNCj4+SAqlehQpJspCNtRbSCOcp4UrLQs6UZ5JENXeEqrlh9VhScAtSGVHFSgcEU8ZRTM9ECQmBQDr Qj3ZSSDuT804krUlAL6BMl7CFyBlYC2ref1VWjEvPGHcVocHUvy0OBqhKH1LlMYaCGqGvZOgqIWiS5Pz N0QdrLCmsCTdqIVTpLMwoSDiwIMsZODMd5DebVSbwt urYrIbDVTkRm72HoGmZrNjLYh3VvZsDL6fSQjiJB6YHZC2KKfwXEPfDXHlU9pPUfHkOJNoAhCbyHkjCU 3MTeCqC2AyylMbyDBxYWLhWIFNJh8+ZWlomeMpCemOFnBbTFBnn5EnWRi0OH9KGWPoEMsuZU6PQADehF 9fPAbiQW9WZfBuIRVaSNLDIvGtS05wiFVsCOh2D5Lp YmVkZGVkRmlsZXMgPDwvTmFtZXMgWyBdDQogID4+ID4+CQzoGB1PLIxogiNfORTeLc0KZZWyDZHsBR6a XMWxVQGaO7T8tDbgPQFOKjLlL1ahxohsKB1cFXSyN945bDuuxbWtFQDdHLNbWq9TIRTfZND9IJPzeLGo XcpbZIOZHZsfPF4KgVEgDWS7vE6hJYpwFDBtBVDdW0 mIDtNkdEkwZF75kSsvxnIvtHOsTPu+Oi9QOI6cp4ZpACz8hvPqHMncIZImROreLGDkUEMmYSOsHPI5ZT C3COAPAcXnBTHfQWJcHPssLICcXQAxtg3KOOJdPBQcDCsuKLIdZPHoEJBeTOjcSABpGVX5DRC5OJLbCV UzHT6XRsFaCVSuNRKoGFosVTBlUYUqpu2PUYWqXVPb PhLfEGUwBBFjJLWeUZuhXKHfRITmBJQ6QYAuYYTnTZ8UVvYjCFGhWOl5ApGeREQjXRTjtq1HCWHoLMSh MtbnSAPzGCBqEQFzHSfuBIMxDAHyOLQ4TEUlDGUgIX2ZMhWqZNXzMABuLohmBLJeZYUhnn2MLNPtBDWs CVTmQyIjBPVnHJIsJJbbYGHrGWP8QTJiTEByFWQoNH 5PCuOkOISlIRz5BXGsONEfXGNrff3JFGNkBGVaMdi1LyRtPWIeWQPqACzuJOErIRKhLItuPHDdQYRuIS 6MIpTaQSIdBtKeECarVBUzYGYacq4HSSLqMKKxSNN9OTNmKZYgBRZfEMliOVJySMOxHRY5RJFqZOCtBH 2LCbKrJVHjBbQ2PxjnRTJdXRQdtc8OOUIxQZApPsP9 RPQtEMKbXTBgYUzoANOgWUDtWRCkEUUsAGFqTN4NTuRfJCPbQxU2ZRilOYMlBFCbuf6TCNBjRNRtQkz4 RoVsSKToKADdWEkjAWVuFFY1GNY0ILTdROOwRL7DOdRgXGWpOeTcHpqbLHTzWRIenk2QCTNuOFYeJWD8 QmVjEXOxDPMbAGmxCLOfRKK2NNe7JHDrMYVpTW5VAc NpCYWnQvY7KymxQPYgZYBots5VRCPsZAHbZlOcOXHqOTUyWTHeMIhpZDBfZOR1TYl1EMQzFCCcUW6XIt RzOVQaTos5BrQcOXEiYLTbrz7ZRZBiOFLiIcxkIjSoEBArSKQdXEb3edDdwVPjQKe0GH0PL9OmmuPwWp VWTu1Kp637OSDiEXTfOr3JT0zkUg5iRCDxSZOMOb0E OMr2AXX8LlPfLDMgFNk4JsgqASBhNPt0PJZhAxOdGCDmJIC+ZVk8ZuWzMIE8A5SxFWk5D7HdTuC9Mrxm FyAgMmD9SmK9Vc3cGOTJOz8+PFnssWTbiNvvXJMNEoZ9DBXaBJflZLWYVb3N ID Date Data Source [id number] 06/05/2020 06:42:57 PM [facility] MR BRAIN WITHOUT CONTRAST [id number] ULTInterpreted by:Dong Cullen MD06/04/2020 5:20 AMMR BRAIN WITHOUT CONTRAST [id number] CLINICAL INFORMATION: left facial droopMR IMAGING OF [...] rce(s) Supporting Document(s) ID Date Data Source [id number] 06/05/2020 08:45:28 AM [facility] Name Value Range Interpretation Code Description Data Beth rce(s) Supporting Document(s) Glucose [Mass/volume] in Capillary blood by Glucometer 120 mg/dL 70- 140 [facility] ID Date Data Source [id number] 06/05/2020 05:54:34 AM EST [facility] Name Value Range Interpretation Code Description Data Beth rce(s) Supporting Document(s) Leukocytes [#/volume] in Blood by Automated count 7.7 10*3/uL 4-10 [facility] Erythrocytes [#/volume] in Blood by Automated count 3.86 10*6/uL 4.6- 6.1 L [facility] Hemoglobin [Mass/volume] in Blood 12.8 g/dL 13.5-18 L [facility] Hematocrit [Volume Fraction] of Blood by Automated count 36.6 % 4 1-53 L [facility] Erythrocyte mean corpuscular volume [Entitic volume] by Auto mated count 94.9 fL 80-96 [facility] Erythrocyte mean corpuscular hemoglobin [Entitic mass] by Automated count 33.1 pg 27-33 H [facility] Erythrocyte mean corpuscular hemoglobin concentration [Mass/volume] by Automated count 34.9 g/dL 32.0-36.0 [facility] width [Ratio] by Automated count 15.0 % 11.5-14.5 H [facility] Platelets [#/volume] in Blood by Automated count 183 10*3/uL 150-400 [facility] Differential cell count method - Blood [facility] Neutrophils/100 leukocytes in Blood by Automated count 72 % [facility] Lymphocytes/100 leukocytes in Blood by Automated count 15 % [facility] Monocytes/100 leukocytes in Blood by Automated count 11 % [facility] Eosinophils/100 leukocytes in Blood by Automated count 2 % [facility] Basophils/100 leukocytes in Blood by Automated count 0 % [facility] Neutrophils [#/volume] in Blood by Automated count 5.51 10*3/uL 1.8-7 .0 [facility] Lymphocytes [#/volume] in Blood by Automated count 1.15 10*3/uL 1.2-4 .0 L [facility] Monocytes [#/volume] in Blood by Automated count 0.87 10*3/uL 0-0.8 H [facility] Eosinophils [#/volume] in Blood by Automated count 0.18 10*3/uL 0-0.5 [facility] Basophils [#/volume] in Blood by Automated count 0.03 10*3/uL 0-0.2 [facility] Nucleated erythrocytes/100 leukocytes [Ratio] in Blood by Automated count 0 /100{WBCs} 0-0 [facility] ID Date Data Source [id number] 06/04/2020 09:12:21 PM [facility] Name Value Range Interpretation Code Description Data Beth rce(s) Supporting Document(s) Glucose [Mass/volume] in Capillary blood by Glucometer 187 mg/dL 70- 140 H [facility] ID Date Data Source [id number] 06/04/2020 06:23:58 PM [facility] Value Range Interpretation Code Description Data Beth rce(s) Supporting Document(s) Color of Urine [facility] Clarity of Urine [facility] Specific gravity of Urine by Refractometry automated 1.012 1.003 -1.030 [facility] pH of Urine by Automated test strip 6.0 5.0-8.0 [facility] Protein [Mass/volume] in Urine by Automated test strip Neg [facility] Glucose [Mass/volume] in Urine by Automated test strip Neg [facility] Ketones [Mass/volume] in Urine by Automated test strip Neg [facility] Bilirubin.total [Presence] in Urine by Automated test strip Negative [facility] Hemoglobin [Presence] in Urine by Automated test strip Neg [facility] Leukocyte esterase [Presence] in Urine by Automated test strip Negative [facility] Nitrite [Presence] in Urine by Automated test strip Neg[facility] Leukocytes [#/area] in Urine sediment by Automated count 1 /HPF 0 -5 [facility] Erythrocytes [#/area] in Urine sediment by Automated count 0 /HPF 0-3 [facility] Mucus [#/area] in Urine sediment by Microscopy low power field None A [facility] ID Date Data Source [id number] 06/04/2020 05:15:16 PM [facility] Value Range Interpretation Code Description Data Beth rce(s) Supporting Document(s) Glucose [Mass/volume] in Capillary blood by Glucometer 120 mg/dL 70- 140 [facility] ID Date Data Source [id number] 06/04/2020 01:24:06 PM [facility] Value Range Interpretation Code Description Data Beth rce(s) Supporting Document(s) Albumin [Mass/volume] in Serum or Plasma by Bromocresol green (BCG) dye binding method 3.7 g/dL 3.5-5.2 [facility] Bilirubin.total [Mass/volume] in Serum or Plasma 1.7 mg/dL <1.2 H [facility] Bilirubin.direct [Mass/volume] in Serum or Plasma 0.3 mg/dL <0.3 H [facility] Alkaline phosphatase [Enzymatic activity/volume] in Serum or Plasma 71 U/L 40-129 [facility] Aspartate aminotransferase [Enzymatic activity/volume] in Serum or Plasma 28 U/L <40 [facility] Alanine aminotransferase [Enzymatic activity/volume] in Seru m or Plasma 8 U/L <41 [facility] Protein [Mass/volume] in Serum or Plasma 5.8 g/dL 6.4-8.3 L [facility] ID Date Data Source [id number] 06/04/2020 01:24:06 PM [facility] Name Value Range Interpretation Code Description Data Beth rce(s) Supporting Document(s) Bicarbonate [Moles/volume] in Serum 24 mmol/L 22-29 [facility] Chloride [Moles/volume] in Serum or Plasma 101 mmol/L 98-107 [facility] Creatinine [Mass/volume] in Serum or Plasma 1.48 mg/dL 0.70-1.20 H [facility] Glucose [Mass/volume] in Serum or Plasma 131 mg/dL 70-140 [facility] Potassium [Moles/volume] in Serum or Plasma 3.9 mmol/L 3.4-5.1 [facility] Sodium [Moles/volume] in Serum or Plasma 135 mmol/L 136-145 L [facility] Urea nitrogen [Mass/volume] in Serum or Plasma 21 mg/dL 8-23 [facility] Anion gap 3 in Serum or Plasma 10 mmol/L 8-15 [facility] Osmolality of Serum or Plasma by calculation 285 mosm/kg 275-300 [facility] Creatinine/Urea nitrogen [Mass Ratio] in Serum or Plasma 14 [facility] Calcium [Mass/volume] in Serum or Plasma 9.6 mg/dL 8.8-10.2 [facility] Glomerular filtration rate/1.73 sq M pre dicted among non-blacks [Volume Rate/Area] in Serum or Plasma by Creatinine-based formula (MDRD) >6 0 [facility] Glomerular filtration rate/1.73 sq M pre dicted among blacks [Volume Rate/Area] in Serum or Plasma by Creatinine-based formula (MDRD) >60 [facility] ID Date Data Source [id number] 06/04/2020 01:11:16 PM [facility] Name Value Range Interpretation Code Description Data Beth rce(s) Supporting Document(s) Ammonia [Moles/volume] in Plasma 16-60 L [facility] ID Date Data Source [id number] 06/04/2020 12:11:51 PM [facility] Value Range Interpretation Code Description Data Beth rce(s) Supporting Document(s) Glucose [Mass/volume] in Capillary blood by Glucometer 128 mg/dL 70- 140 [facility] ID Date Data Source [id number] 06/04/2020 08:08:59 AM [facility] Value Range Interpretation Code Description Data Beth rce(s) Supporting Document(s) Glucose [Mass/volume] in Capillary blood by Glucometer 131 mg/dL 70- 140 [facility] ID Date Data Source [id number] 06/04/2020 05:45:42 AM [facility] Value Range Interpretation Code Description Data Beth rce(s) Supporting Document(s) Leukocytes [#/volume] in Blood by Automated count 8.5 10*3/uL 4-10 [facility] Erythrocytes [#/volume] in Blood by Automated count 4.11 10*6/uL 4.6- 6.1 [facility] Hemoglobin [Mass/volume] in Blood 13.3 g/dL 13.5-18 L [facility] Hematocrit [Volume Fraction] of Blood by Automated count 39.2 % 4 1-53 L [facility] Erythrocyte mean corpuscular volume [Entitic volume] by Auto mated count 95.2 fL 80-96 [facility] Erythrocyte mean corpuscular hemoglobin [Entitic mass] by Automated count 32.4 pg 27-33 [facility] Erythrocyte mean corpuscular hemoglobin concentration [Mass/volume] by Automated count 34.1 g/dL [facility].0[facility] width [Ratio] by Automated count 14.9 % 11.5-14.5 H [facility] Platelets [#/volume] in Blood by Automated count 177 10*3/uL 150-400 [facility] Differential cell count method - Blood [facility] Neutrophils/100 leukocytes in Blood by Automated count 70 % [facility] Lymphocytes/100 leukocytes in Blood by Automated count 16 % [facility] Monocytes/100 leukocytes in Blood by Automated count 12 % [facility] Eosinophils/100 leukocytes in Blood by Automated count 2 % [facility] Basophils/100 leukocytes in Blood by Automated count 0 % [facility] Neutrophils [#/volume] in Blood by Automated count 5.95 10*3/uL 1.8-7 .0 [facility] Lymphocytes [#/volume] in Blood by Automated count 1.34 10*3/uL 1.2-4 .0 [facility] Monocytes [#/volume] in Blood by Automated count 1.00 10*3/uL 0-0.8 H [facility] Eosinophils [#/volume] in Blood by Automated count 0.15 10*3/uL 0-0.5 [facility] Basophils [#/volume] in Blood by Automated count 0.03 10*3/uL 0-0.2 [facility] Nucleated erythrocytes/100 leukocytes [Ratio] in Blood by Automated count 0 /100{WBCs} 0-0 [facility] ID Date Data Source [id number] 06/03/2020 09:17:18 PM [facility] Value Range Interpretation Code Description Data Beth rce(s) Supporting Document(s) Glucose [Mass/volume] in Capillary blood by Glucometer 213 mg/dL 70- 140 H [facility] ID Date Data Source [id number] 06/03/2020 04:36:06 PM [facility] Value Range Interpretation Code Description Data Beth rce(s) Supporting Document(s) Glucose [Mass/volume] in Capillary blood by Glucometer 98 mg/dL 70- 140 [facility] ID Date Data Source [id number] 06/03/2020 03:10:10 PM [facility] Value Range Interpretation Code Description Data Beth rce(s) Supporting Document(s) Bicarbonate [Moles/volume] in Serum 25 mmol/L 22-29 [facility] Chloride [Moles/volume] in Serum or Plasma 99 mmol/L 98-107 [facility] Creatinine [Mass/volume] in Serum or Plasma 1.63 mg/dL 0.70-1.20 H [facility] Glucose [Mass/volume] in Serum or Plasma 108 mg/dL 70-140 [facility] Potassium [Moles/volume] in Serum or Plasma 3.6 mmol/L 3.4-5.1 [facility] Sodium [Moles/volume] in Serum or Plasma 135 mmol/L 136-145 L [facility] Urea nitrogen [Mass/volume] in Serum or Plasma 23 mg/dL 8-23 [facility] Anion gap 3 in Serum or Plasma 11 mmol/L 8-15 [facility] Osmolality of Serum or Plasma by calculation 284 mosm/kg 275-300 [facility] Creatinine/Urea nitrogen [Mass Ratio] in Serum or Plasma 14 [facility] Calcium [Mass/volume] in Serum or Plasma 10.0 mg/dL 8.8-10.2 [facility] Glomerular filtration rate/1.73 sq M pre dicted among non-blacks [Volume Rate/Area] in Serum or Plasma by Creatinine-based formula (MDRD) >6 0 [facility] Glomerular filtration rate/1.73 sq M pre dicted among blacks [Volume Rate/Area] in Serum or Plasma by Creatinine-based formula (MDRD) >60 [facility] ID Date Data Source [id number] 06/03/2020 04:36:06 PM [facility] Name Value Range Interpretation Code Description Data Beth rce(s) Supporting Document(s) Glucose [Mass/volume] in Capillary blood by Glucometer 84 mg/dL 70- 140 [facility] ID Date Data Source [id number] 06/03/2020 01:45:38 PM [facility] Value Range Interpretation Code Description Data Beth rce(s) Supporting Document(s) Glucose [Mass/volume] in Capillary blood by Glucometer 183 mg/dL 70- 140 H [facility] ID Date Data Source [id number] 06/03/2020 11:33:17 AM [facility] Value Range Interpretation Code Description Data Beth rce(s) Supporting Document(s) Glucose [Mass/volume] in Capillary blood by Glucometer 249 mg/dL 70- 140 H [facility] ID Date Data Source [id number] 06/03/2020 10:39:00 AM EST [facility] Name Value Range Interpretation Code Description Data Beth rce(s) Supporting Document(s) SARS-CoV-2 RNA 2019 nCoV Real-Time RT-PCR: NOT DETECTED [facility] This lab was ordered by [facility] and reported by [facility]. ID Date Data Source [id number] 06/03/2020 11:56:44 AM [facility] Service Cmnt XXX-Imp : NoneRespiratory P CR Panel : PCR ResultsMicroorganism XXX Cult : See Labs Tab for 2019 nCoV RT-PCR resultsHAdV DNA QI RATNA+non-probe : Not DetectedHCoV [id number] Nph QI RATNA+non-probe : Not DetectedHCoV JHT2CMD Nph QI RATNA+non-probe : Not [id number] RNA Nph QI RATNA+non-probe : Not [id number] RNA Upper resp QI RATNA+probe : Not [...] DNA Nph Q RATNA+non-probe : Not DetectedB [id number] DNA Nph RATNA+non-probe : Not Detected Name Value Range Interpretation Code Description Data Beth rce(s) Supporting Document(s) ID Date Data Source [id number]/03/2020 11:56:03 AM [facility] Name Value Range Interpretation Code Description Data [facility] rce(s) Supporting Document(s) Specimen source [Identifier] of Unspecified specimen [facility] SARS-CoV-2 RNA 2019 nCoV Real-Time RT-PCR: NOT DETECTED [facility] Assay Performed [facility] Patients first test for [facility] Patient employed in healthcare setting [facility] Patient has symptoms related to [facility] When did you start to experience these symptoms [Date and time] [Phen X] [facility] Patient was hospitalized because of this condition [facility] patient was admitted to ICU for [facility] Patient resides in a congregate care setting [facility] status [facility] ID Date Data Source [id number]/03/2020 07:46:30 AM [facility] Name Value Range Interpretation Code Description Data Beth rce(s) Supporting Document(s) Glucose [Mass/volume] in Capillary blood by Glucometer 122 mg/dL 70- 140 [facility] ID Date Data Source [id number] 06/03/2020 01:59:57 AM [facility] Name Value Range Interpretation Code Description Data Beth rce(s) Supporting Document(s) Leukocytes [#/volume] in Blood by Automated count 8.2 10*3/uL 4-10 [facility] Erythrocytes [#/volume] in Blood by Automated count 4.24 10*6/uL 4.6- 6.1 L [facility] Hemoglobin [Mass/volume] in Blood 13.5 g/dL 13.5-18 [facility] Hematocrit [Volume Fraction] of Blood by Automated count 40.4 % 4 1-53 L [facility] Erythrocyte mean corpuscular volume [Entitic volume] by Auto mated count 95.4 fL 80-96 [facility] Erythrocyte mean corpuscular hemoglobin [Entitic mass] by Automated count 32.0 pg 27-33 [facility] Erythrocyte mean corpuscular hemoglobin concentration [Mass/volume] by Automated count 33.5 g/dL 32.0-36.0 [facility] distribution width [Ratio] by Automated count 15.2 % 11.5-14.5 H [facility] Platelets [#/volume] in Blood by Automated count 175 10*3/uL 150-400 [facility] Differential cell count method - Blood [facility] Neutrophils/100 leukocytes in Blood by Automated count 73 % [facility] Lymphocytes/100 leukocytes in Blood by Automated count 13 % [facility] Monocytes/100 leukocytes in Blood by Automated count 11 % [facility] Eosinophils/100 leukocytes in Blood by Automated count 2 % [facility] Basophils/100 leukocytes in Blood by Automated count 1 % [facility] Neutrophils [#/volume] in Blood by Automated count 6.13 10*3/uL 1.8-7 .0 [facility] Lymphocytes [#/volume] in Blood by Automated count 1.06 10*3/uL 1.2-4 .0 L [facility] Monocytes [#/volume] in Blood by Automated count 0.86 10*3/uL 0-0.8 H [facility] Eosinophils [#/volume] in Blood by Automated count 0.12 10*3/uL 0-0.5 [facility] Basophils [#/volume] in Blood by Automated count 0.07 10*3/uL 0-0.2 [facility] Nucleated erythrocytes/100 leukocytes [Ratio] in Blood by Automated count 0 /100{WBCs} 0-0 [facility] ID Date Data Source [id number] 06/02/2020 10:34:11 PM [facility] Name Value Range Interpretation Code Description Data Beth rce(s) Supporting Document(s) Glucose [Mass/volume] in Capillary blood by Glucometer 192 mg/dL 70- 140 H [facility] ID Date Data Source [id number] 06/02/2020 05:01:33 PM [facility] Name Value Range Interpretation Code Description Data Beth rce(s) Supporting Document(s) Glucose [Mass/volume] in Capillary blood by Glucometer 111 mg/dL 70- 140 [facility] ID Date Data Source [id number] 06/02/2020 04:28:47 PM [facility] Name Value Range Interpretation Code Description Data Beth rce(s) Supporting Document(s) [facility] GGEGOs6hAqZNSaCf50/EWJiaZYTtm3TrCIpgYJu9BEufPUFnD2RiRDP6oM3fRTU0TMdSAaGfRsBcZiHp lbm [file] Double Corner Cutter/7Chk/yIbwTcXLyO4gHRxSkfW41L97xIxe7K/SJvpzSfk0v0AhDIb1N2XOIe+XPbGiiaTT8O71rSH FFyAeY7xh2EEBfm8HYQLsO7UN9uNh4Df5NvjPC8BiD Dl497CbNw6MLDr5TMaoA9eWr6E/rrRgRUvwrwV17iS5aKztE84brC9tI5kTXA5MIdYEzYB+9+ghRYJHX wc4FScBmcQA/qo7ra7VrIhBlb8LnoPrzDhJcNFnNor9JE2kcPJ8oTogFdhORg63gf7PycKMRVDzUdJAG LsRD/nhPjt/Zvda6hC6uBJqBuHgcjM6IE0w1pM+Marques [file] FODwJ0AA98d083UV4Ze+iQGMN9F+STACK CLERK+p8D7kWIINP umXVJkDRlEdXkZL0ZzZbcE34uT7qv9CP2zItmSJMocTp5vTeKcdlrfEgyGStu/FMrXy/HGjF4szZ5vwN YxN0CAIBTqM9INAim9hYxVXMHQ+Cy6ylIh72W9JhXLQ/ZRfDYCDoLr7yWUtg7+Rz7a2MUrq+h5YotSK8 J1ZTqB/Eq9Zh3nIpTme5AMVK7cTP1Zv9ZGUlxiZCha QDu+8axNauO3yLN0zN0guUgvO3VmXzOcVoiq7/YYSOc41bpHn+QkzRgteo4AkDVVTNP0QgOz9LNMQIST FEhCmTvMp1ZUMsuoP6/BbNVUUAS4RPPsMwft/aR+e1JZktCPumDDQmzYWBqpGh7321ukvUlWu8r+stfA CKuVd2K2A4zJOf82BC0374kiCIiFMOmrg15vWbelyc Mx7GKLBMSfqaH0ENtnW5N5dog/YaWPLIvOUsoFV524uhHrXZBxLGvsQpV0IgbFxxP2Ddyom3yC/AjUFO vtt29CvOJh1k//PBQmF7fRVMMNMn+zMv43hFTfqGBotVByJHzmrXzezU54WLWVqZsSzivsveA1lNyemn 8o37b4dp1s04JqS9/g76IF7f/p8Wx5cR4v1WnOK/Ya Md6oO9TqQAwL3ZubFWek+I36Q40BTP4Gk9domOTkM2IpmZhcfKiMdldXZDqfENvjtCZBFipMQdHRTKYP SFW7SRLsLQfjrlyUgOzY+8VSP/vIxTzUCPG9Msf09a1v3fX4DlnigxkFSFGMTjZPdxKJX9iNeyN5YFgI RDUMOSmfGGyeN2gkNA8S78HsWqF1VryAHziieFxcHO fiGfcg3N1Le3HZIM8JGGbE+Itly0BfbLhcICHdmysLN2V2JJd/UsF+CquE21KhrfwKul0XlCDRE+9vtA qelYNrsCuldyJGZHoyPxI9RCbC/pd3bCypeV+kJdYqEANZmrU568Zz8svEgwvdUoFomDSybC8ZJ/vDhS X31Y3UeIOKx3xBrelRMSra2aNn2cTtTx1aH5G7vnsP TiY7kIm67qLcYzu/PrtIdY59DIslNJ1U1og00MEykbWq4STsNwEb9EM1ZlaJySRqmgK6uTyi3cvuqg4a WBDCNHrKRoZqJAF7GcdOTMEDhHJiv29LXOWeMMmE7jmc+EtTVVsKCm0dhyVilC6KPxvxcMf61zpScHkn +TMtfZcKeU2OahPJFvtcNyu/mNzYg3BK7q67XerY+k xDI828oD5huAQLTk8d81/j4kpTdiVlJyd8rVYaLO6TUk4h1UICGLZrycLq3YTsnZWJQ+MhOk5vYDUsyf Z9Zm5Q6Rf/bFJjPCrYLBAL8nawfNcWOCQG+8hadY3Y4Q/Marika/h6LNA+O5CvvvSm3/upnu9iL7R3AIua [file] [employer]+Qj2ALq3H56xRhhKbKJYe7VY0AsCqrAZKLmKR7clNZJZCWBm5x3IdUwCK837F2IC89LyQWQZixshtl [file] B[facility]1U ID Date Data Source [id number] 06/02/2020 02:40:11 PM EST [facility] Name Value Range Interpretation Code Description Data Beth rce(s) Supporting Document(s) Consultation [facility] LEGJIx2wZrIMXsPx00/KJCjeDOZmj0KdODilLUf5DTogYJNqC4EtKBJ7fC8aTHL5CUkBXyEqBsQmVhVe lbm MkIkePZbPsCDQoImaWVnOlYImaVrdfkHVzJF5WoBW3CGXxB26cWYMhZGVfG3IiBSExZkM+Uo9DSQIdeD KrPU0FOthN4U4xy4b4TM4nBF4MHldWaB36ZlDrUmxbM0gI9osWCXtHQxudL3idV6YlZRsLlznjJlLNUY cKsOCD6Eq2sg6fDZU4BDxqEJi4DDX/alW6CCW2s2I/ t84XvCg0Rh61G0Uhmhzd2VnrBIz2gTouYjyK+PMS5w4mXNXOfk2bsALMthk2HGQfg1kdC6FT2EVnGCpR 8qVfS3UCEOOiLw6ySXiDVD+4Brxh9hnfvOb/HYRtAz6bGw4Ydko+F6ftmLawYlmOK8MqKeEbGp7MQs7u Rr5Vm4M9muT6YB4UFVgF6WTTyee2yUHyHrAjRi2d5i z5MjnOZL2/Xe8M0KKahbyRwVo6hStGaSh4qsM1YaLKrBc9HfB9QhRz2PaXPamHtnnnNl/NSbgAL0ZvJk D8kS6nCSguKGDMuYrez8JfQph3fe2CVwXHvauik/fY7lH9TswVdnpXommqm4ObONy2ONbhyohnVUePQU DOUGLAS+vk/CMCLmE3hiIc0uAt/tLEexlO3pzR69bA8P3i CZnzxnWshdXQT4iwCiVtsI58G6UpScsnajQrjDj6yvoiSyTR+OAME+LYeyaCrgGZFvlZSGjiy2KbMu1h dk7O+2enegCJ4cMBH+c1oqLTDc+Z2VqDfCyvdgkoU+T7jGdsrFnkeQWGyb1T3oExb3duCZt6BgB+UgvI +lojgiemwJLVGwwvDgKTldHNSupwrvxBIdivpzR4LK [file] AgICAgICAgICAgICAgICAgICAgICAgICAgICAgICAgICAgICAgICAgICAgICAgICAgICAgICAgICAgIC AgICAgICAgICAgICAgICAgICAgICAgICAgICAgICAg FY1EWZSiRZKbCAQtQQTiKOCrJZZvUKEiTXWeNBRgSCZyGPSjYAViXJDdMPYkMIHmLMRlNQYyTCPoTSCl ZJXhHGAsEWZxCPBdBJKuFDRyOSYdRMQvILSiONLiTFLrPXBbEXCqWFRlIY7ZJGXzFNJkVWXzTVZdIQKj ICAgICAgICAgICAgICAgICAgICAgICAgICAgICAgIC NeNANoYEJdSZFjZJYyBJIpOEBiUXHdCNGyYMEoIRDqMBWxNPAqXKDoQMQkNJVyNVItEUHzNI4DBBKdRA AgICAgICAgICAgICAgICAgICAgICAgICAgICAgICAgICAgICAgICAgICAgICAgICAgICAgICAgICAgIC AgICAgICAgICAgICAgICAgICAgICAgICAgICAgICAg EDBnZR9CJSJvIPSpOGZoNNRcYSQdAOEdSGWmEYXcYKVoSSQuWGGmYAYtOZXgJNOhPNUwTUKjXXNyNYJt HEDnRAPkXXYeSIHkMXLjTHOmJWJaWGZxDBBjXUScDIQhMHRtNNVvDJKbZOAxMT3AVYZzBHHzMSDqSQKe ICAgICAgICAgICAgICAgICAgICAgICAgICAgICAgIC UqOPOyDCQpUWPqUDVkTTWmOSRpFBRoUNTnOSQgQQZfUKIwMCQwOQLgCHAtWQJuKQFqFOZuYTVkYH3YJC AgICAgICAgICAgICAgICAgICAgICAgICAgICAgICAgICAgICAgICAgICAgICAgICAgICAgICAgICAgIC AgICAgICAgICAgICAgICAgICAgICAgICAgICAgICAg JPLvYBZrAA7FGWWyBRVrAXAmQKLnYBMkHFBnCSEbZEHrDDDlLKYyWXYlLYXbAPBxAYRmYTNwVDReDBWj YARtUWIlCXUbFWJqJKGoXJGcGNMcHIOlTVTnECByEOObUEBlXTLuTXQoPAIbDZOvQU4YHALqNEHfZQAf ICAgICAgICAgICAgICAgICAgICAgICAgICAgICAgIC AgICAgICAgICAgICAgICAgICAgICAgICAgICAgICAgICAgICAgICAgICAgICAgICAgICAgICAgICAgIA 0KICAgICAgICAgICAgICAgICAgICAgICAgICAgICAgICAgICAgICAgICAgICAgICAgICAgICAgICAgIC AgICAgICAgICAgICAgICAgICAgICAgICAgICAgICAg GZBsRYPwOFYdGI6ERZ79mBErw7N4OJZkWF6nyjk/Lm0PBIdvbsCcdGMoPQ9WEwKhZG9efm0CTxVuFJ7z ig8YEPjFHfAnA3O8nTBdFTQoWQPKEuIuT17oKZtnFv73NQhkWBJwBdHeVQw3Py9PDtJrS8xjTOPrGsS0 POEhLsU0AGYlExS9WSJdYuJnOZqdQB7As1KehCXfUE o+Kz3MPB7za3NkOFcoCRZuJG3mda3RJJnUMgRuV3GnpvN6EKA3MUHwDs4WALDkLYGcxVNuJIPqXGTVZj ExD7MnqI30YGNNKr3+OXiftwOkNykCUxW3ZYYdr1KfFUs5ND3VEIUaBQw1iFAnS80bv6SwiRAtYrhyE2 79drKiIBgiFMWTITchmUtqDEoxcg6DCPW8RIIsWS6d TDRrUXLsYbN6BUCTQV0JVPJgAMWzpKWtGAYfSUWUUU3VQFshUCV9JCEfofPcmIKkHRlbQF0SMMJsnsLh MjQgMCBSDQo+Ns0JSK9nc3CcNOxrVdYyBD2shz4IHJvIMkCfZ8L9aUMoJ1I9HMghWo1AZMXdBRYxCwYg SAZCQXdtGM2WCA6fmkU5CD3JoXDtBKLjVMJfjGBsYR y4N28dnKSdGAzbOS8MSYL+Tyesha+Vl8PRFZvQDLpXFDeWzUoJUZTQmDoE4QpH9TVq0WxC8QiWQ34aTjrog ExSTtxLY2MUA4jWGWqLFFEGT2XvLUlgX7awzRaYPZcHQUEVaEtA87ycPZqPIRySQOfIHThXs1DKPInQ9 GwijXiyMdcucOtOAWePMEJTI2BGBsjwkYgxDWgmSdr HO56gLyeCA1JQw2FQfGgLF4mar3LbJTlGr7OQJFvOc1NQQOlOEBrXFWwFRJ8TVGdRjXyNXseONKkYECk IDF8FAQzVENhHS5FJeZeEPOqPVN0XGaoUGNnNRQyza7TXQLtHEScFDEfYMTtRYJvSZBpTSflNTUrTYZg SYB1WWBzCFVrVY3JCsGnZJDxUZS1EXTyZKGrMKIjxi 5LWUUwHAVaDuszHAJuPUXuUFUjSQcpNRBlIPN4AHP7ILGjEEVtHH2SLaXcJPUiPHdiOGArZVViLLPfjs 8EALKmDKFsOlk9JDMnDBGrGUDlWLeaVUMpJZL0KJN8IQSsVVQkWS6CAgJoNAWsCRhtUGUyUJUeKQMggt 3KQKEdGXApDMYxTcRkKXSxESZnSFdxKJQaYDQ4Ptl6 ZSUzVLTfCA3OFiIxTSDzLEZhPKGkYJGbXJKpab9DKUNcXZHyKHB2EtMuOWBsJNHuHTjrAUAiDQGoXvA6 PDCrQBFmTJ5OOqEtCSHrEDH0FCTqZYSnRNFriv8SJSPnYZAkDSw9XMRwFDUlYSFxSUljXHXvAGSzLRkd KGEiBBDgHS4QHeFvKFIlUKHmRYNqILNhMHFozt1XVT VrPZUpQyR5JZTnQYSyUEGhZCdyIFOxGZGvESOdVADkNCZjTS0EUfIrXCSzHCS5ZhCfTEOpUWXlli8PMC GrXNLpMKNkRYIaKRVmCKQiDIqdHGBiHWR3Lmn7GNXbEIEsFO1VSqOsQRKtWER1BjJwYNAxSHCgfk1YbE IysUgznt7IBMyZCr4TuIbqULD3JZciKr7odYQzHiAb SKEPYu2JwwPfMGUxMGZAQXphEWTqVAHhZAG1IGV6YcSmBZf3RyN9PJkzWZCbKBX7VgsvAcaxQqN3CyAc IVklYAWaOFQdWGksOKm5UZZoCtWcHMIpQDLlJ6E+GP0sVQq+Tb6Pw5DxkgS2jkPnWPprIAz5Lw8SUZWE T0YNCg== ID Date Data Source [id number] 06/02/2020 12:37:04 PM [facility] Name Value Range Interpretation Code Description Data Beth rce(s) Supporting Document(s) Glucose [Mass/volume] in Capillary blood by Glucometer 130 mg/dL 70- 140 [facility] ID Date Data Source [id number] 06/02/2020 09:15:46 AM [facility] Name Value Range Interpretation Code Description Data Beth rce(s) Supporting Document(s) Glucose [Mass/volume] in Capillary blood by Glucometer 151 mg/dL 70- 140 H [facility] ID Date Data Source [id number] 06/02/2020 07:02:15 AM [facility] Name Value Range Interpretation Code Description Data Beth rce(s) Supporting Document(s) Leukocytes [#/volume] in Blood by Automated count 7.6 10*3/uL 4-10 [facility] Erythrocytes [#/volume] in Blood by Automated count 4.30 10*6/uL 4.6- 6.1 L [facility] Hemoglobin [Mass/volume] in Blood 13.7 g/dL 13.5-18 [facility] Hematocrit [Volume Fraction] of Blood by Automated count 41.1 % 4 1-53 [facility] Erythrocyte mean corpuscular volume [Entitic volume] by Auto mated count 95.5 fL 80-96 [facility] Erythrocyte mean corpuscular hemoglobin [Entitic mass] by Automated count 31.8 pg 27-33 [facility] Erythrocyte mean corpuscular hemoglobin concentration [Mass/volume] by Automated count 33.3 g/dL 32.0-36.0 [facility] distribution width [Ratio] by Automated count 15.4 % 11.5-14.5 H [facility] Platelets [#/volume] in Blood by Automated count 172 10*3/uL 150-400 [facility] Differential cell count method - Blood [facility] Neutrophils/100 leukocytes in Blood by Automated count 68 % [facility] Lymphocytes/100 leukocytes in Blood by Automated count 17 % [facility] Monocytes/100 leukocytes in Blood by Automated count 12 % [facility] Eosinophils/100 leukocytes in Blood by Automated count 2 % [facility] Basophils/100 leukocytes in Blood by Automated count 1 % [facility] Neutrophils [#/volume] in Blood by Automated count 5.21 10*3/uL 1.8-7 .0 [facility] Lymphocytes [#/volume] in Blood by Automated count 1.26 10*3/uL 1.2-4 .0 [facility] Monocytes [#/volume] in Blood by Automated count 0.89 10*3/uL 0-0.8 H [facility] Eosinophils [#/volume] in Blood by Automated count 0.14 10*3/uL 0-0.5 [facility] Basophils [#/volume] in Blood by Automated count 0.07 10*3/uL 0-0.2 [facility] Nucleated erythrocytes/100 leukocytes [Ratio] in Blood by Automated count 0 /100{WBCs} 0-0 [facility] ID Date Data Source [id number] 06/01/2020 09:41:21 PM [facility] Name Value Range Interpretation Code Description Data Beth rce(s) Supporting Document(s) Glucose [Mass/volume] in Capillary blood by Glucometer 140 mg/dL 70- 140 [facility] ID Date Data Source [id number] 06/01/2020 04:44:26 PM [facility] Value Range Interpretation Code Description Data Beth rce(s) Supporting Document(s) Glucose [Mass/volume] in Capillary blood by Glucometer 127 mg/dL 70- 140 [facility] ID Date Data Source [id number] 06/01/2020 12:06:48 PM [facility] Value Range Interpretation Code Description Data Beth rce(s) Supporting Document(s) Glucose [Mass/volume] in Capillary blood by Glucometer 157 mg/dL 70- 140 H [facility] ID Date Data Source [id number] 06/01/2020 08:21:32 AM [facility] Value Range Interpretation Code Description Data Beth rce(s) Supporting Document(s) Glucose [Mass/volume] in Capillary blood by Glucometer 124 mg/dL 70- 140 [facility] ID Date Data Source [id number] 06/01/2020 07:03:35 AM [facility] Value Range Interpretation Code Description Data Beth rce(s) Supporting Document(s) Leukocytes [#/volume] in Blood by Automated count 6.9 10*3/uL 4-10 [facility] Erythrocytes [#/volume] in Blood by Automated count 4.30 10*6/uL 4.6- 6.1 L [facility] Hemoglobin [Mass/volume] in Blood 14.0 g/dL 13.5-18 [facility] Hematocrit [Volume Fraction] of Blood by Automated count 41.0 % 4 1-53 [facility] Erythrocyte mean corpuscular volume [Entitic volume] by Auto mated count 95.4 fL 80-96 [facility] Erythrocyte mean corpuscular hemoglobin [Entitic mass] by Automated count 32.6 pg 27-33 [facility] Erythrocyte mean corpuscular hemoglobin concentration [Mass/volume] by Automated count 34.1 g/dL 32.0-36.0 [facility] distribution width [Ratio] by Automated count 15.0 % 11.5-14.5 H [facility] Platelets [#/volume] in Blood by Automated count 167 10*3/uL 150-400 [facility] Differential cell count method - Blood [facility] Neutrophils/100 leukocytes in Blood by Automated count 65 % [facility] Lymphocytes/100 leukocytes in Blood by Automated count 21 % [facility] Monocytes/100 leukocytes in Blood by Automated count 12 % [facility] Eosinophils/100 leukocytes in Blood by Automated count 1 % [facility] Basophils/100 leukocytes in Blood by Automated count 1 % [facility] Neutrophils [#/volume] in Blood by Automated count 4.53 10*3/uL 1.8-7 .0 [facility] Lymphocytes [#/volume] in Blood by Automated count 1.47 10*3/uL 1.2-4 .0 [facility] Monocytes [#/volume] in Blood by Automated count 0.81 10*3/uL 0-0.8 H [facility] Eosinophils [#/volume] in Blood by Automated count 0.08 10*3/uL 0-0.5 [facility] Basophils [#/volume] in Blood by Automated count 0.04 10*3/uL 0-0.2 [facility] Nucleated erythrocytes/100 leukocytes [Ratio] in Blood by Automated count 0 /100{WBCs} 0-0 [facility] ID Date Data Source [id number] 06/01/2020 08:20:09 AM [facility] Name Value Range Interpretation Code Description Data Beth rce(s) Supporting Document(s) Bicarbonate [Moles/volume] in Serum 23 mmol/L 22-29 [facility] Chloride [Moles/volume] in Serum or Plasma 102 mmol/L 98-107 [facility] Creatinine [Mass/volume] in Serum or Plasma 1.33 mg/dL 0.70-1.20 [facility] Glucose [Mass/volume] in Serum or Plasma 112 mg/dL 70-140 [facility] Potassium [Moles/volume] in Serum or Plasma 3.9 mmol/L 3.4-5.1 [facility] Sodium [Moles/volume] in Serum or Plasma 137 mmol/L 136-145 [facility] Urea nitrogen [Mass/volume] in Serum or Plasma 22 mg/dL 8-23 [facility] Anion gap 3 in Serum or Plasma 12 mmol/L 8-15 [facility] Osmolality of Serum or Plasma by calculation 288 mosm/kg 275-300 [facility] Creatinine/Urea nitrogen [Mass Ratio] in Serum or Plasma 16 [facility] Calcium [Mass/volume] in Serum or Plasma 10.1 mg/dL 8.8-10.2 [facility] Glomerular filtration rate/1.73 sq M pre dicted among non-blacks [Volume Rate/Area] in Serum or Plasma by Creatinine-based formula (MDRD) >6 0 [facility] Glomerular filtration rate/1.73 sq M pre dicted among blacks [Volume Rate/Area] in Serum or Plasma by Creatinine-based formula (MDRD) >60 [facility] ID Date Data Source [id number] 05/31/2020 09:30:37 PM [facility] Name Value Range Interpretation Code Description Data Beth rce(s) Supporting Document(s) Glucose [Mass/volume] in Capillary blood by Glucometer 75 mg/dL 70- 140 [facility] ID Date Data Source [id number] 05/31/2020 05:41:37 PM [facility] MR ANGIOGRAPHY NECK WITHOUT CONTRAST 705 47FINAL RESULTInterpreted by:Hector Cullen MDINDICATION: 84-year-old male with transient aphasia. TECHNIQUE: [id number] and T1 fat suppressed sequences of the [...] rce(s) Supporting Document(s) ID Date Data Source [id number] 05/31/2020 05:18:20 PM [facility] Name Value Range Interpretation Code Description Data Beth rce(s) Supporting Document(s) Glucose [Mass/volume] in Capillary blood by Glucometer 99 mg/dL 70- 140 [facility] ID Date Data Source [id number] 05/31/2020 01:59:01 PM [facility] MR ANGIOGRAPHY HEAD WITHOUT CONTRAST [id number] 44FINAL RESULTInterpreted by:Baldev Connelly MD05/31/2020 11:36 AM MR ANGIOGRAPHY HEAD WITHOUT CONTRAST [id number] CLINICAL INFORMATION: ?stroke ADDITIONAL CLINICAL INFORMATION: None.TECHNIQUE: [...] artery. No obvious occlusion is visualized.PCOMMs: No aneurysm.real time trader: Patent, without intra-arterial thrombus, stenosis or aneurysm.BASILAR [...] rce(s) Supporting Document(s) ID Date Data Source [id number] 05/31/2020 01:53:11 PM [facility] MR BRAIN WITHOUT CONTRAST [id number] RES ULTInterpreted by:Baldev Connelly MD05/31/2020 11:36 AMMR BRAIN WITHOUT CONTRAST [id number] CLINICAL INFORMATION: TIA. Transient aphasiaADDITIONAL CLINICAL INFORMATION: [...] rce(s) Supporting Document(s) ID Date Data Source [id number] 05/31/2020 01:14:32 PM [facility] Name Value Range Interpretation Code Description Data Beth rce(s) Supporting Document(s) Glucose [Mass/volume] in Capillary blood by Glucometer 105 mg/dL 70- 140 [facility] ID Date Data Source [id number] 05/31/2020 12:01:24 PM [facility] Name Value Range Interpretation Code Description Data Beth rce(s) Supporting Document(s) History and Physical [facility] PHTXMg1bPsPBBlGu64/HKQqiVEHfb1NgQCjzXNd1WEzwQIRtI6WrRZE9hI0aGZV7IPaZNcDrAxKpDjI4 [facility] [file] ICAgICAgICAgICAgICAgICAgICAgICAgICAgICAgIC YwJVBlVIRiXHZsXETrLRRmGQXzIEMgBQOnOHKvWSGjHO7CVKNlWGUwCCCtNCIpUJWaHGWeZRNkSDBgXZ AgICAgICAgICAgICAgICAgICAgICAgICAgICAgICAgICAgICAgICAgICAgICAgICAgICAgICAgICAgIC InMSUvBVPsHLVuDDAmOF9UAWTlDXYeVAZbIMAzRYPb ICAgICAgICAgICAgICAgICAgICAgICAgICAgICAgICAgICAgICAgICAgICAgICAgICAgICAgICAgICAg JYPeLHTqAMYfGSLqKOLdSHZcQGEdOJZxAX9CZLExINSyYBDbPBMaKPGdDHAtYYUuWGVfBMUaHLVaEUKr ICAgICAgICAgICAgICAgICAgICAgICAgICAgICAgIC RzTLEbOGKfPTGqILHqZVGxEGPaDMMaTFBqSSDeMFZmLXTwXZ3AVTSnHZNaOJSdNZDjJAUgZHNnMBRnKJ AgICAgICAgICAgICAgICAgICAgICAgICAgICAgICAgICAgICAgICAgICAgICAgICAgICAgICAgICAgIC YaLHZyPKLoACZnNWSzVITiYZ8TUMSnDQYeZGSwLNXz ICAgICAgICAgICAgICAgICAgICAgICAgICAgICAgICAgICAgICAgICAgICAgICAgICAgICAgICAgICAg FGPxTPErJGNmHIMvUJDrGAMyHBSkGQZlBOBxOD9PXGJtOSDcEKGmMTExWFCiREOhGUSkOFLyBVPlYZYw ICAgICAgICAgICAgICAgICAgICAgICAgICAgICAgIC LqAAMnBREiCEJxXFOkGDDjCZSnDLOkYXLyGWZtWXEwHBArYLSuIO1NFRSkNKJrQXPlFQFpDMNaQHZvGQ AgICAgICAgICAgICAgICAgICAgICAgICAgICAgICAgICAgICAgICAgICAgICAgICAgICAgICAgICAgIC CkPCBqUOVtQPSeSGUqQJXqQNHrJY7VSHPaHKMsFAGf ICAgICAgICAgICAgICAgICAgICAgICAgICAgICAgICAgICAgICAgICAgICAgICAgICAgICAgICAgICAg CGAmADXhRXStDLMcXALfWOObSFNhDUNeURLfCNViZT6OUXTzIEOnSBEnPIXjPUZeSXKcSQEmDUIwDRIo ICAgICAgICAgICAgICAgICAgICAgICAgICAgICAgIC WdLWMgHZGxYQXmXGByZUStTWRuXQWdXILnBZZwQAFqTBPbHDOvZNJwVX1PPH19iGFrj1Q2ZPNuNQ9aaj c/Dx7VYZaezfRafHRxZX3MBgXqGZ2kxo2NIaQbTN0iow9UKVuHIqLlE4G8cPWxIOVfNXUDXbMyR40tFM jwBc72ROcjCJFnTpEzVOe5Ju3VTlXaK3raCKRwBxR6 XFKiAlN4RDQtRjGbTQBcCYPzWTGqOGWTCXW4OCAvMfCdKtVnZXJlOB8TLUCcR502dlOnKp8PHr7MEnWh LP7ivl8YBzFhADTxSrdWCwd3CUayWE7NxCNaeEQpKeSbVURSPdJlE6tmh4KjTlsrFDNMWTwyQZ2Ph1Jd dCAxDQo+Ej4TRP0pa2AiQYheIzFqSG5poz2VWLmKFz ElA4RubNrtXCvbQAXihRCUWKMxtxGJkJtrfBMqLO9VQmVwGRKiYc8dOr0yNICaSIPwVuGzQMRCDU7HPR FaTSZuyWYxFXXaDUULGV8QZNatPOX5DLZkrzNzxPKjQWrtFC8PGXPedzMqAyKjIOYYOZg+Zq5DAK3pd1 AxQXo5SKHvw1JwXTr2CS4IBGHxHDokRAPyTW6ef2Xs W9D9KmH5eMDnW5ijjdowY3EgemKnjeGmNOMkENZxBT7IYR0RKM4EKPXwMYyxKH0NCFO6EWvhTvIyViWy WEJ5NmA6PGEzIT1PEMSrZVO2TO9HEZ2FQkkwU0IURKgSiMilWASFObFNTakqCRKiI7HBH0nQZ3pOW9Vy P24IQ20vG4CEDJ1OE2RNBGpqAd4cNUj+Sv6KQS3wx2 FwFGfpNQVvEC4wdu1HIYtHWzNgC4T0nSRvL7N9WAyxWc9WVUCkBNGnUmIdMQDDTCebJJ6ODJ6nquE2SM 1CrBJjURAgBPDcmHUbPHw8H85dsIIvJMkvUE8GWHI+Tyesha+Er6ZMHLzHHNqMSDiSbNnSCURTmMnO0YsK0 IMz5UvQ0RsEG99uInnctAwKAjePL3IMO1xJQQbBRAJ PP7LkZPxhC0mwnMtDsTeFQOKTcHpD67ghXWxSXGfSOP1OXCqKl2QTZNaD1JtooMqrDrhysQvWBXsYVCX VD9YOTsineZzrAInfSxdVV85iCshRL0PRe7KIlVbEY3thu9JjEOySu1SRBFzXO9FSXHxOPBuMLDkDYZ5 CTStPnNyFIegCKVmQGSwSHB8QJIoHOOmXU9SAjGyQN WoMXF1EAMtPZMqUYSyjo1TUGFsPDK3CgI9VfFrDYUiUWOpBMgvPSXkVQBuWWT7YJQuPVHvCR2ITiCyQG DhQXByWTMbDKNbTTMhxy0FYPZmDNDrCQR8JAMoCHAaSCNjSGakPTVtCHY1CXR4BMFiVNZhGJ4ZMdMwHG VwFEB2HBhdZCCoXHMiou8CQHUmVPQlMMG6HULyMFBw GJSxBVrhBTGxKAXiSyx2DLOlMCUzRQ6CFmKrGYFrOWU5UTXhIRByJNLydd4XDQEcJJJqKXLnKqVfPJNo LNGbFVqjCQEdDOZ4BeTjJAYtWOKxWA5ITwPuVPWhOGs6WKZtCMQrNMGebg4DKYMmTBFlBAc7WuGqFXPq JEMoKWmyFGLtVBWwZAW2TWKtBCLsWO9BCoNhXYDgNv TvHZZdSUNrVDJcpk5WBTPaXEFmXvIaWcFaSRWeUKYhIWygFQUrAAYbZJOtDFBsAHTdCD6JOyLkWJAyUm X5RUFuSLPdWZNcvh0QHCXcIFTzZjO0OePbDRKiUKJuWGofFMXwNTMmNiB4XOBrYUPpKD5OYwOsRNFiMz I9ZXFsCLTnCULdpt6XWVViQXNbZUblEVWpBEAsVLGn YUjcKSSwVUN0YAEaLNNkAFKwDC6WQeFsUBPbSoAfUJMkGEQnFIEscc6ONLWgOIElQdD7WSYtEAAyGMMt EJxeTZEaFKJ7LQS1ZFEdRYDlSR8TAaGoURBlXrG8OaXvYFZbNMFmlj2PEQVkEXI4JUQyVVLnXEJyWASn EWvxHNBlOHA3BQhnABQvTLUyQH5WZySoLXEtQKQqRE GuMWEfCANqqo0CMDXrWHY9CZfvTpGcIIDgYDHhIBrqIPDvLHYkNQofRGNwDXFkBN5EZkItGLBxLTLvMN RrYNNlPPUduk6ZOCAjFDN6Cnw8GMFcKEAvHTPcYNpiIEDsSRPeJGD8ATNcUJMuEA6NYuQuLZBkCELkYL FbOIRlAOGcnr7ZvRZfnGfmvm8ASEeEYz8GsJanMVD8 SLsuCk0oyYHcXPYoMYOOQg9OsbFkSCHoRCLKDDwqDCYmCIHxPPD6E3SrSuB6GCKbXkJ8F9NrJtUlLICt A8B5IoYyJtI6LxE6SDSbYWS0CGYmOvEeBHO1TKKbZXS0DfHtWPqtDPV+WM9dXTi+Yu9Ri4WobwE7moDj ZQa9SeXaPH5ELNUTX8OJOu== ID Date Data Source [id number] 05/31/2020 08:24:00 AM EST [facility] DATE OF EXAMINATION: 05/30/2020 21:36 EST [...] rce(s) Supporting Document(s) ID Date Data Source [id number] 05/31/2020 08:22:39 AM [facility] Value Range Interpretation Code Description Data Beth rce(s) Supporting Document(s) Glucose [Mass/volume] in Capillary blood by Glucometer 113 mg/dL 70- 140 [facility] ID Date Data Source [id number] 05/31/2020 07:19:08 AM [facility] Value Range Interpretation Code Description Data Beth rce(s) Supporting Document(s) Platelet aggregation arachidonate induced [Units/volume] in Bloo d 460 ARU <550 [facility] (NOTE)350-549 ARU Therapeutic aspirin r [id number] ARU Non-therapeutic range for aspirin ID Date Data Source [id number] 05/31/2020 04:32:19 AM [facility] Value Range Interpretation Code Description Data Beth rce(s) Supporting Document(s) Hemoglobin A1c/Hemoglobin.total in Blood by HPLC 7.0 % 4.0-6.0 H [facility] (NOTE)<5.7% Average risk of diabetes (ADA)5.7-6.4% Increased risk of diabetes(ADA)>/= 6.5% Diagnostic for diabetes(ADA) Glucose mean value [Mass/volume] in Blood Estimated fr om glycated hemoglobin 153 mg/dL <126 H [facility] ID Date Data Source [id number] 05/31/2020 04:13:04 AM [facility] Value Range Interpretation Code Description Data Beth rce(s) Supporting Document(s) Leukocytes [#/volume] in Blood by Automated count 9.2 10*3/uL 4-10 [facility] Erythrocytes [#/volume] in Blood by Automated count 4.29 10*6/uL 4.6- 6.1 L [facility] Hemoglobin [Mass/volume] in Blood 13.9 g/dL 13.5-18 [facility] Hematocrit [Volume Fraction] of Blood by Automated count 41.3 % 4 1-53 [facility] Erythrocyte mean corpuscular volume [Entitic volume] by Auto mated count 96.2 fL 80-96 H [facility] Erythrocyte mean corpuscular hemoglobin [Entitic mass] by Automated count 32.4 pg 27-33 [facility] Erythrocyte mean corpuscular hemoglobin concentration [Mass/volume] by Automated count 33.7 g/dL 32.0-36.0 [facility] width [Ratio] by Automated count 15.1 % 11.5-14.5 [facility] Platelets [#/volume] in Blood by Automated count 199 10*3/uL 150-400 [facility] Differential cell count method - Blood [facility] Neutrophils/100 leukocytes in Blood by Automated count 70 % [facility] Lymphocytes/100 leukocytes in Blood by Automated count 18 % [facility] Monocytes/100 leukocytes in Blood by Automated count 10 % [facility] Eosinophils/100 leukocytes in Blood by Automated count 1 % [facility] Basophils/100 leukocytes in Blood by Automated count 1 % [facility] Neutrophils [#/volume] in Blood by Automated count 6.49 10*3/uL 1.8-7 .0 [facility] Lymphocytes [#/volume] in Blood by Automated count 1.66 10*3/uL 1.2-4 .0 [facility] Monocytes [#/volume] in Blood by Automated count 0.92 10*3/uL 0-0.8 H [facility] Eosinophils [#/volume] in Blood by Automated count 0.11 10*3/uL 0-0.5 [facility] Basophils [#/volume] in Blood by Automated count 0.05 10*3/uL 0-0.2 [facility] Nucleated erythrocytes/100 leukocytes [Ratio] in Blood by Automated count 0 /100{WBCs} 0-0 [facility] ID Date Data Source [id number] 05/31/2020 04:26:27 AM [facility] Name Value Range Interpretation Code Description Data Beth rce(s) Supporting Document(s) Prothrombin time (PT) 13.2 s 12.5-14.9 [facility] INR in Platelet poor plasma by Coagulation assay 0.99 [facility] Routine intensity oral anticoagulation I NR is typically 2.0-3.0. Target INR must be clinically individualized. ID Date Data Source [id number] 05/31/2020 04:38:29 AM [facility] Value Range Interpretation Code Description Data Beth rce(s) Supporting Document(s) Cholesterol [Mass/volume] in Serum or Plasma 146 mg/dL <200 [facility] Triglyceride [Mass/volume] in Serum or Plasma 136 mg/dL <150 [facility] Cholesterol in HDL [Mass/volume] in Serum or Plasma 45 mg/dL >40 [facility] Cholesterol in LDL [Mass/volume] in Serum or Plasma by calcu lation 73 mg/dL <100 [facility] Cholesterol in VLDL [Mass/volume] in Serum or Plasma by calc ulation 27 mg/dl 16-42 [facility] Cholesterol non HDL [Mass/volume] in Serum or Plasma 101 mg/dL <130 [facility] ID Date Data Source [id number] 05/31/2020 04:38:29 AM [facility] Name Value Range Interpretation Code Description Data Beth rce(s) Supporting Document(s) Thyrotropin [Units/volume] in Serum or Plasma 2.430 u[IU]/mL 0.270-4. 200 [facility] ID Date Data Source [id number] 05/31/2020 04:38:29 AM [facility] Name Value Range Interpretation Code Description Data Beth rce(s) Supporting Document(s) Albumin [Mass/volume] in Serum or Plasma by Bromocresol green (BCG) dye binding method 4.0 g/dL 3.5-5.2 [facility] Bilirubin.total [Mass/volume] in Serum or Plasma 1.1 mg/dL <1.2 [facility] Calcium [Mass/volume] in Serum or Plasma 10.0 mg/dL 8.8-10.2 [facility] Chloride [Moles/volume] in Serum or Plasma 101 mmol/L 98-107 [facility] Creatinine [Mass/volume] in Serum or Plasma 1.48 mg/dL 0.70-1.20 H [facility] Glucose [Mass/volume] in Serum or Plasma 159 mg/dL 70-140 [facility] Alkaline phosphatase [Enzymatic activity/volume] in Serum or Plasma 70 U/L 40-129 [facility] Potassium [Moles/volume] in Serum or Plasma 3.8 mmol/L 3.4-5.1 [facility] Protein [Mass/volume] in Serum or Plasma 6.0 g/dL 6.4-8.3 L [facility] Sodium [Moles/volume] in Serum or Plasma 136 mmol/L 136-145 [facility] Aspartate aminotransferase [Enzymatic activity/volume] in Serum or Plasma 23 U/L <40 [facility] Urea nitrogen [Mass/volume] in Serum or Plasma 26 mg/dL 8-23 H [facility] Osmolality of Serum or Plasma by calculation 290 mosm/kg 275-300 [facility] Creatinine/Urea nitrogen [Mass Ratio] in Serum or Plasma 18 [facility] Bicarbonate [Moles/volume] in Serum 24 mmol/L 22-29 [facility] Alanine aminotransferase [Enzymatic activity/volume] in Seru m or Plasma 10 U/L <41 [facility] Anion gap 3 in Serum or Plasma 12 mmol/L 8-15 [facility] Glomerular filtration rate/1.73 sq M pre dicted among non-blacks [Volume Rate/Area] in Serum or Plasma by Creatinine-based formula (MDRD) >6 0 [facility] Glomerular filtration rate/1.73 sq M pre dicted among blacks [Volume Rate/Area] in Serum or Plasma by Creatinine-based formula (MDRD) >60 [facility] ID Date Data Source [id number] 05/31/2020 02:47:00 AM [facility] Patient: SNEHA JOSE Hernandez Observation Report - [facility].VisitID: [id number] [place] [address] [phone], MRegistration Date/Time: 05/30/2020 21:20 Weight:77.1 kg (S). [...] Value Range Interpretation Code Description Data Beth e(s) Supporting Document(s) ID Date Data Source [id number] 05/31/2020 02:24:30 AM [facility] Name Value Range Interpretation Code Description Data Beth rce(s) Supporting Document(s) Glucose [Mass/volume] in Capillary blood by Glucometer 157 mg/dL 70- 140 [facility] ID Date Data Source [id number] 05/30/2020 10:30:[address] [facility] Name Value Range Interpretation Code Description Data Beth rce(s) Supporting Document(s) COVID-19 NEGATIVE [facility] This lab was ordered by [facility] and reported by [facility]. ID Date Data Source [id number] 05/30/2020 10:57:00 PM EST [facility] TSYSORDER [id number] Name Value Range Interpretation Code Description Data Beth rce(s) Supporting Document(s) COVID-19 NEGATIVE NEGATIVE [facility] Negative results should be treated as pr [...] are for the indentification of SARS-CoV-2 RNA. FpePVUM-ClF-4 RNA is generally detectable in respiratorysamples during the actue phase of infection. ID Date Data Source [id number] 05/30/2020 10:16:00 PM [facility] l TSYSORDER [id number] Name Value Range Interpretation Code Description Data Beth rce(s) Supporting Document(s) MAGNESIUM 1.7 mg/dL 1.8-2.4 L [facility] ID Date Data Source [id number] 05/30/2020 10:16:00 PM EST [facility] l TSYSORDER [id number] Name Value Range Interpretation Code Description Data Beth rce(s) Supporting Document(s) GLUCOSE 128 mg/dL 74-106 H [facility] BLOOD UREA NITROGEN 30 mg/dL 7-18 H [facility] ital CREATININE 1.88 mg/dL 0.7-1.3 H [facility] SODIUM 141 mmol/L 136-145 [facility] POTASSIUM 4.1 mmol/L 3.5-5.1 [facility] CHLORIDE 103 mmol/L 98-107 [facility] CO2 28 mmol/L 21-32 [facility] CALCIUM 10.2 mg/dL 8.5-10.1 H [facility] ANION GAP 10.0 mmol/L 5-12 [facility] GLOMERULAR FILTRATION RATE 35 mL/min [facility] GFR IS CALCULATED IN mL/min/1.73m2 ANDRE L FUNCTION: >90MILDLY DECREASED: 60-89MILDY TO MODERATELY DECREASED: 45-59 MODERATELY TO SEVERELY DECREASED: 30-44SEVERELY DECREASED: 15-29RENAL FAILURE: <15 AST 26 U/L 15-37 [facility] ALT 20 U/L 12-78 [facility] ALKALINE PHOSPHATASE 73 U/L 46-116 [facility] pital TOTAL BILIRUBIN 1.1 mg/dL 0.2-1.0 H [facility] TOTAL PROTEIN 6.3 g/dl 6.4-8.2 L [facility] ALBUMIN 3.7 gm/dL 3.4-5.0 [facility] ID Date Data Source [id number] 05/30/2020 10:16:00 PM [facility] TSYSORDER [id number] Name Value Range Interpretation Code Description Data Beth rce(s) Supporting Document(s) LIPASE 146 U/L 73-393 [facility] ID Date Data Source [id number] 05/30/2020 10:12:00 PM [facility] l TSYSORDER [id number] Name Value Range Interpretation Code Description Data Beth rce(s) Supporting Document(s) AMMONIA 10 umol/L 11-32 [facility] ID Date Data Source [id number] 05/30/2020 10:12:00 PM [facility] l TSYSORDER [id number] Name Value Range Interpretation Code Description Data Beth rce(s) Supporting Document(s) PARTIAL THROMBOPLASTIN TIME 21.9 SECONDS 21.2-27.3 [facility] ID Date Data Source [id number] 05/30/2020 10:12:00 PM [facility] l TSYSORDER [id number] Name Value Range Interpretation Code Description Data Beth rce(s) Supporting Document(s) PROTHROMBIN TIME (PATIENT) 10.5 SECONDS 9.1-11.6 [facility] INR 1.01 0.87-1.06 [facility] ID Date Data Source [id number] 05/30/2020 09:57:00 PM EST [facility] ital TSYSORDER [id number] Name Value Range Interpretation Code Description Data [facility] rce(s) Supporting Document(s) URINE COLOR. [facility] URINE APPEARANCE CLEAR [facility] l URINE GLUCOSE (UA) NEGATIVE mg/dL NEGATIVE [facility] URINE BILIRUBIN NEGATIVE NEGATIVE [facility] URINE KETONE NEGATIVE mg/dL NEGATIVE [facility] SPECIFIC GRAVITY,URINE 1.020 1.001-1.035 [facility] URINE BLOOD NEGATIVE NEGATIVE [facility] PH,URINE 6.0 5.0-9.0 [facility] URINE PROTEIN NEGATIVE mg/dL NEGATIVE [facility] URINE UROBILINOGEN NORMAL(0.2-1) mg/dL 0-1 [facility] URINE NITRATE NEGATIVE NEGATIVE [facility] URINE LEUKOCYTE ESTERASE NEGATIVE NEGATIVE [facility] ID Date Data Source [id number] 05/30/2020 09:55:00 PM EST [facility] l TSYSORDER [id number] Name Value Range Interpretation Code Description Data [facility] rce(s) Supporting Document(s) WHITE BLOOD COUNT 11.1 K/mm3 4.0-10.0 H [facility] maura RED BLOOD COUNT 4.32 M/mm3 4.50-6.00 L [facility] l HEMOGLOBIN 13.9 gm/dL 14.0-18.0 L [facility] HEMATOCRIT 40.6 % 42.0-54.0 L [facility] MEAN CELL VOLUME 94.0 fl 80-96 [facility] MEAN CORPUSCULAR HEMOGLOBIN 32.2 pg 27.0-31.0 H [facility] MEAN CORPUSCULAR HGB CONC 34.2 g/dl 32.0-36.0 [facility] RED CELL DISTRIBUTION WIDTH 14.0 % 10.0-14.5 [facility] PLATELET COUNT 200 K/mm3 172-450 [facility] MEAN PLATELET VOLUME 10.0 fl 9.0-13.0 [facility] pital GRAN % 73.7 % 50-80.0 [facility] IG% 0.8 % 0.0-0.2 H [facility] LYMPH % 15.1 % 25.0-50.0 L [facility] MONO % 9.1 % 2.0-10.0 [facility] EOS % 0.9 % 0-5.0 [facility] BASO % 0.4 % 0.0-2.0 [facility] GRAN # 8.2 K/mm3 2.0-8.00 H [facility] IG# 0.1 K/mm3 0.0-0.2 [facility] LYMPH # 1.7 K/mm3 1.0-5.0 [facility] MONO # 1.0 K/mm3 0.10-1.20 [facility] EOS # 0.1 K/mm3 0.0-0.5 [facility] BASO # 0.0 K/mm3 0.0-0.2 [facility] ID Date Data Source [id number] 05/14/2020 01:39:00 PM EST [facility]) Name Value Range Interpretation Code Description Data Beth rce(s) Supporting Document(s) Hemoglobin A1c/Hemoglobin.total in Blood 6.4 [facility] Glucose [Mass/volume] in Serum or Plasma 219 [facility] ID Date Data Source [id number] 03/05/2020 10:58:40 PM EST [facility] Name Value Range Interpretation Code Description Data Beth rce(s) Supporting Document(s) &PDF [facility] HZRXFk2kNqGQCjLl75/JCUtfURPno3CiVYbiJAq7FAjuGWOfX7SpiQqePVTFZI3QBWJQRYJLQHlqByIh yKE [file] ICAgICAgICAgICAgICAgICAgICAgICAgICAgICAgIC AgICAgICAgICAgICAgICAgICAgICAgICANCiAgICAgICAgICAgICAgICAgICAgICAgICAgICAgICAgIC AgICAgICAgICAgICAgICAgICAgICAgICAgICAgICAgICAgICAgICAgICAgICAgICAgICAgICAgICAgIC AgICAgICANCiAgICAgICAgICAgICAgICAgICAgICAg ICAgICAgICAgICAgICAgICAgICAgICAgICAgICAgICAgICAgICAgICAgICAgICAgICAgICAgICAgICAg ICAgICAgICAgICAgICAgICANCiAgICAgICAgICAgICAgICAgICAgICAgICAgICAgICAgICAgICAgICAg ICAgICAgICAgICAgICAgICAgICAgICAgICAgICAgIC AgICAgICAgICAgICAgICAgICAgICAgICAgICANCiAgICAgICAgICAgICAgICAgICAgICAgICAgICAgIC AgICAgICAgICAgICAgICAgICAgICAgICAgICAgICAgICAgICAgICAgICAgICAgICAgICAgICAgICAgIC AgICAgICAgICANCiAgICAgICAgICAgICAgICAgICAg ICAgICAgICAgICAgICAgICAgICAgICAgICAgICAgICAgICAgICAgICAgICAgICAgICAgICAgICAgICAg ICAgICAgICAgICAgICAgICAgICANCiAgICAgICAgICAgICAgICAgICAgICAgICAgICAgICAgICAgICAg ICAgICAgICAgICAgICAgICAgICAgICAgICAgICAgIC AgICAgICAgICAgICAgICAgICAgICAgICAgICAgICANCiAgICAgICAgICAgICAgICAgICAgICAgICAgIC AgICAgICAgICAgICAgICAgICAgICAgICAgICAgICAgICAgICAgICAgICAgICAgICAgICAgICAgICAgIC AgICAgICAgICAgICANCiAgICAgICAgICAgICAgICAg ICAgICAgICAgICAgICAgICAgICAgICAgICAgICAgICAgICAgICAgICAgICAgICAgICAgICAgICAgICAg ICAgICAgICAgICAgICAgICAgICAgICANCiAgICAgICAgICAgICAgICAgICAgICAgICAgICAgICAgICAg ICAgICAgICAgICAgICAgICAgICAgICAgICAgICAgIC AgICAgICAgICAgICAgICAgICAgICAgICAgICAgICAgICANCjw/uHJuR0zcdQYaesS4G0zzXq1IPx6KNS 8vi1XkKHKwNVlnloBoUppFCzXmLKRoPcaFSyh0ACeiXZ4QpAYfO8UaD4RlJCbiPQ4MSQTlZRYfbIFuNA XsDWKwJwX2XKSvBEazRY6OiZRlFJeiFSEhNUMkMzOw RAUcWU0YVKLeH241cvUnKh6XBf9DEeZpBI7jhm2XDCMjILFoFtePVng1VNraHK9ZkBZkB9SapMDvx1yX YpXqI5QCEZV5VOGfRw5XYGPfGaPhSYOrPQdhVI0rDKSxIIAQjFwrzvJ0KV9YAI9erzOoNM7GCuXoOy2r Ex2DCkWrX1UhT5EvELWlWEOFKXxwPI4MVGGpSWR8HI WuMDDlMEVBIxIfI02tQR0QN4Ahi37lKkK2YPHoOsBfUWduQH76yLzengDyeVMkrBgkZY6EMf9+DQplbm CeVieZEqntYPUAFtSdXKGDTpJeIPOcAQYcFRWlAgA7RwPfXw8JMCPiVWYaEDIjBkAzVGOxXDApYAtnJS NaRIE4IdeeAHCbEIDoHF6EQuCdQCToPxgzMLBePEHz NHLcqs3CAANkRPUiOEI1QbZpEEYmXBMsETamLJDcKYYwMPE7BSRoEQXnGP2QJdMvHDHoOWF2JJKlVUWz BUXkiv2BPEEgINLaMiY6PJPcAPSxAZXjIQcrGTPxRQK6YIIwVXWiYMRgIQ0XZoYwALAbKMtoJpMdGXCy EFSrfp3TJEVgAIEmBuN5DNJtWACoYTRiKZpkPGBcJT V8DdD9GXKgFMIvBT9DAzHiCVTrYJs3SGhuZGJbPADfyf1XZTLtKFGqHYkoMDDkMNOjDSSuYSnaPVDgUD M7DTn4XQSbURBpQF6SBoDuQVEbHVE5CMHyEMXaXUHvfc9AQVQbRQNdARO0ITAfFQFjMLKlIBbePFSnXP L1WYjeEMDgREWfFL3SLtEpKJYhROO5ITFtXDImQJLj vv0YGTCgZPYkGTj7ZWKkRYOfXVPsGNjmWGHsOUY3TWKfJNAsNZSkON5CIhDwSRVqOWN4PUisHEMgQAIz wt7ZKVVuITDhBsG6SWEjVJZnMTWxQMkqWSCiKLSgLHJ0YQMnBBNxTL0YWgPwUQGaExT5WsRkVTXjQBOb pi9GHUJoNNOtQfY0PNPaOARvGPYaKJrlBMXdSRT0PT LnSISmNIUaRL1GLaCgKXCpPrS4SfsiEQTgVPVqlj2UPUXbLWDbFti7KlVoJMMeZCOhPZzbJNAkKTI3Ib AyEKTaHDJuUR3TTrGqBVHxLmp5AtsuKAWiWKGtab9EKMPdXXE1BtyjQMEjHLYiKHOiGGdcSKSnPEE3UL HcMVYmIVEcRL5LQuKlNWGrCNr3MGFfXPIiECIuyd5B NYMrHSM1Fxf8UOWfKKCdLTRgCGuyWIUsNWD9ATA5HXDoLPIbJW6EGdHiOHZeNLx8GsJcVZAhTJKojx1O MEWuENV1RWX2XlCcJOPiTYIoHUhfXGUeSBB4JsP1ZCWcXNIcBD8MZqGsQGGaSgn9GrFyTHPwRGSter4V MMZyUZI2DHAsWxPjZWJaHEViHHf6heXpeIXpQBj7QK 9SO1DchfAaMSEOLf2Uz356MBRlNKNfFl1YC7orZy8gSWKqDASFHe8SOWz7BCIpBKKmCLPaWZMkB7DsBA ZnWIHiAGV8WYZ4JsE3LlA+ICcmTXNgCwArQBJpXFM1MJS3SHR2BENuFdl8NPSyQMGyYL8sTGYHGm8+DQ [id number] ID Date Data Source [id number] 02/06/2020 10:00:00 AM EST [facility] Name Value Range Interpretation Code Description Data Beth rce(s) Supporting Document(s) SARS coronavirus 2 RNA [facility] This lab was ordered by [facility] and reported by [facility]. ID Date Data Source [id number] 12/24/2019 02:05:00 PM EDT MEDENT ([facility], ) Name Value Range Interpretation Code Description Data Beth rce(s) Supporting Document(s) PDFReport Laboratory test result MEDENT ([facility], ) FVC-Pred 3.94 L MEDENT ([facility], ) FVC-LLN 3.01 L MEDENT ([facility], ) FVC-%Pred-Pre 79 L MEDENT ([facility], ) FVC-Pre 3.15 L MEDENT ([facility], ) Fev1-Pre 1.72 L MEDENT ([facility], ) Fev1-%Pred-Pre 61 L MEDENT ([facility], ) Fev1-Pred 2.79 L MEDENT ([facility], ) Fev1-LLN 2.00 L MEDENT ([facility], ) Fev6-Pred 3.67 L MEDENT ([facility], ) Fev6-Pre 3.05 L MEDENT ([facility]) Vgc1dys-Pwya 71 % MEDENT ([facility], ) Fev6-LLN 2.76 L MEDENT ([facility], ) Rxv3qkk-Txh 54 % MEDENT ([facility]) Fev6-%Pred-Pre 83 L MEDENT ([facility], ) Ogh1xee-IRP 61 % MEDENT ([facility]) Mzz4aep-Zmgh 93 % MEDENT ([facility]) Gwg7bse-%Pred-Pre 76 % MEDENT ([facility]) FEFMax-Pred 6.98 L/E/sec MEDENT ([facility], ) Mev4smc-%Pred-Pre 104 % MEDENT ([facility]) Tyo8qdt-Noi 97 % MEDENT ([facility]) FEFMax-Pre 3.57 L/E/sec MEDENT ([facility]) FEFMax-%Pred-Pre 51 L/E/sec MEDENT ([facility]) FEFMax-LLN 4.66 L/E/sec MEDENT ([facility], ) Rrd1671-%Pred-Pre 41 L/E/sec MEDENT ([facility]) Mlm4538-Dqv 0.78 L/E/sec MEDENT ([facility], ) Jzi3638-Klbl 1.88 L/E/sec MEDENT ([facility]) ExpTime-Pre 9.29 sec MEDENT ([facility]) Xzz4624-HHZ 0.27 L/E/sec MEDENT ([facility], ) Bfh5exp3-Cymd 76 % MEDENT ([facility], ) Chm6gsj6-Hfe 56 % MED[facility] ([facility], ) Ggh3yrh5-ZHS 67 % MED[facility] ([facility], ) Sbf8zqc6-%Pred-Pre 74 % MEDENT ([facility]) ID Date Data Source [id number] 12/18/2019 01:40:00 PM EDT [facility] DATE OF EXAMINATION: 12/18/2019 13:06 EDT IMPRESSION: For a detailed report please refer to the software generated [employer]EXAreport. Electronically signed in PS360 by: Yelena Kendall M.D. 12/18/2019 13:35 EDT Name Value Range Interpretation Code Description Data Beth rce(s) Supporting Document(s) ID Date Data Source [id number] 11/28/2019 12:00:00 AM EDT [facility] Imaging Han Willams MD Patient Name: JOSE HOOVER [id number] [facility] 1935[place] [facility] [place] [address] Date of Exam: 11/28/2019#: Fax: [phone] EXAM: MRI LUMBAR SPINE WITHOUT&WITH [...] There is shallow disc bulging. There is rfmt-ne-izcymmhf facethypertrophy. There is mild bilateral neural foraminal [...] (US & Home)VradV/jmcThank you for referring JOSE HOOVER to our office. E lectronically Signed - [facility] 11/28/19 15:37 Name Value Range Interpretation Code Description Data Beth rce(s) Supporting Document(s) Procedure Social History Code Duration Value Status Description Data Source(s ) Smoking 12/31/2020 12:00:00 AM EDT - 04/04/2002 12:00:00 AM EST Patient is a former smoker completed Patient is a former smoker MEDENT ([facility], ) Smoking 12/22/2020 12:00:00 AM EDT Patient is a former smoker completed Patient is a former smoker MEDENT ([facility]) Smoking 12/19/2020 12:00:00 AM EDT Former Smoker completed Former Smoker eCW1 ([facility]) Smoking 12/03/2020 12:00:00 AM EDT Former Smoker completed Former Smoker eCW1 ([facility]) Smoking 12/03/2020 12:00:00 AM EDT Former Smoker completed Former Smoker eCW1 ([facility]) Smoking 11/27/2020 12:00:00 AM EDT Former Smoker completed Former Smoker eCW1 ([facility]) Smoking 09/23/2020 12:00:00 AM EDT Former Smoker completed Former Smoker eCW1 ([facility]) Smoking 09/23/2020 12:00:00 AM EDT Former Smoker completed Former Smoker eCW1 ([facility]) Smoking 09/23/2020 12:00:00 AM EDT Former Smoker completed Former Smoker eCW1 ([facility]) Smoking 09/23/2020 12:00:00 AM EDT Former Smoker completed Former Smoker eCW1 ([facility]) Smoking 09/23/2020 12:00:00 AM EDT Former Smoker completed Former Smoker eCW1 ([facility]) Smoking 09/23/2020 12:00:00 AM EDT Former Smoker completed Former Smoker eCW1 ([facility]) Smoking 09/23/2020 12:00:00 AM EDT Former Smoker completed Former Smoker eCW1 ([facility]) Smoking 09/05/2020 12:00:00 AM EDT Former Smoker completed Former Smoker eCW1 ([facility]) Smoking 09/05/2020 12:00:00 AM EDT Former Smoker completed Former Smoker eCW1 ([facility]) Alcohol intake 07/18/2020 12:00:00 AM EDT Current drinker of al cohol (finding) completed Current drinker of alcohol (finding) [facility] Smoking 06/23/2020 12:00:00 AM EDT Former Smoker completed Former Smoker eCW1 ([facility]) Smoking 06/23/2020 12:00:00 AM EDT Former Smoker completed Former Smoker eCW1 ([facility]) Smoking 06/23/2020 12:00:00 AM EDT Former Smoker completed Former Smoker eCW1 ([facility]) Smoking 06/23/2020 12:00:00 AM EDT Former Smoker completed Former Smoker eCW1 ([facility]) Smoking 06/23/2020 12:00:00 AM EDT Former Smoker completed Former Smoker eCW1 ([facility]) Smoking 06/23/2020 12:00:00 AM EDT Former Smoker completed Former Smoker eCW1 ([facility]) Smoking 06/23/2020 12:00:00 AM EDT Former Smoker completed Former Smoker eCW1 ([facility]) Smoking 06/23/2020 12:00:00 AM EDT Former Smoker completed Former Smoker eCW1 ([facility]) Smoking 06/23/2020 12:00:00 AM EDT Former Smoker completed Former Smoker eCW1 ([facility]) Smoking 06/23/2020 12:00:00 AM EDT Former Smoker completed Former Smoker eCW1 ([facility]) Smoking 06/23/2020 12:00:00 AM EDT Former Smoker completed Former Smoker eCW1 ([facility]) Alcohol intake 05/31/2020 12:00:00 AM EST Current drinker of al cohol (finding) completed Current drinker of alcohol (finding) [facility] Tobacco use and exposure 05/31/2020 12:00:00 AM EST Never used co mpleted Never used [facility] Cigarette pack-years 05/31/2020 12:00:00 AM EST UNK completed [facility] Cigarettes smoked current (pack per day) - Reported 05/31/19 12:00:00 AM EST UNK completed [facility] Smoking 05/31/2020 12:00:00 AM EST Former smoker completed Former smoker [facility] Smoking 05/22/2020 12:00:00 AM EST Former Smoker completed Former Smoker eCW1 ([facility]) Smoking 05/22/2020 12:00:00 AM EST Former Smoker completed Former Smoker eCW1 ([facility]) Smoking 05/22/2020 12:00:00 AM EST Former Smoker completed Former Smoker eCW1 ([facility]) Smoking 05/22/2020 12:00:00 AM EST Former Smoker completed Former Smoker eCW1 ([facility]) Smoking 05/22/2020 12:00:00 AM EST Former Smoker completed Former Smoker eCW1 ([facility]) Smoking 05/16/2020 12:00:00 AM EST Former Smoker completed Former Smoker eCW1 ([facility]) Smoking 03/14/2020 12:00:00 AM EST Former Smoker completed Former Smoker eCW1 ([facility]) Smoking 03/06/2020 12:00:00 AM EST Former Smoker completed Former Smoker eCW1 ([facility]) Smoking 03/06/2020 12:00:00 AM EST Former Smoker completed Former Smoker eCW1 ([facility]) Smoking 03/06/2020 12:00:00 AM EST Former Smoker completed Former Smoker eCW1 ([facility]) Smoking 03/06/2020 12:00:00 AM EST Former Smoker completed Former Smoker eCW1 ([facility]) Smoking 02/21/2020 12:00:00 AM EST Former Smoker completed Former Smoker eCW1 ([facility]) Smoking 02/01/2020 12:00:00 AM EDT Former Smoker completed Former Smoker eCW1 ([facility]) Smoking 02/01/2020 12:00:00 AM EDT Former Smoker completed Former Smoker eCW1 ([facility]) Smoking 02/01/2020 12:00:00 AM EDT Former Smoker completed Former Smoker eCW1 ([facility]) Smoking 01/17/2020 12:00:00 AM EDT Former Smoker completed Former Smoker eCW1 ([facility]) Smoking 01/17/2020 12:00:00 AM EDT Former Smoker completed Former Smoker eCW1 ([facility]) Smoking 01/17/2020 12:00:00 AM EDT Former Smoker completed Former Smoker eCW1 ([facility]) Smoking 01/17/2020 12:00:00 AM EDT Former Smoker completed Former Smoker eCW1 ([facility]) Smoking 01/10/2020 12:00:00 AM EDT Former Smoker completed Former Smoker eCW1 ([facility]) Vital Signs ID Date Data Source UNK Name Value Range Interpretation Code Description Data Source(s) Systolic blood pressure 130 mm[Hg] 130 mm[Hg] [facility] ([facility]) Diastolic blood pressure 80 mm[Hg] 80 mm[Hg] [facility] ([facility]) Body mass index (BMI) [Ratio] 22.2 kg/m2 22.2 k g/m2 [facility] ([facility]) [place] body weight 166 [lb_av] 166 [lb_av] [facility] Heart rate 61 /min 61 /min [facility] ([facility]) Oxygen saturation in Arterial blood by Pulse oximetry 99 % 99 % [facility] ([facility]) Body height 70 [in_i] 70 [in_i] [facility] ([facility]) 5'10" Body weight 155.00 [lb_av] 155.00 [lb_av] [facility] T ([facility]) Body weight 70.308 kg 70.308 kg [facility] ([facility]) Body surface area Derived from formula 1.87 m2 1.87 m2 [facility] ([facility]) Body mass index (BMI) [Ratio] 21.8 kg/m2 21.8 k g/m2 [facility] ([facility]) Systolic blood pressure 122 mm[Hg] 122 mm[Hg[facility] Diastolic blood pressure 70 mm[Hg] 70 mm[Hg] MEDENT ([facility]) Body height 71 [in_i] 71 [in_i] MEDENT ([facility]) 5'11" Body weight 156.00 [lb_av] 156.00 [lb_av] MEDEN T ([facility] ) Oxygen saturation in Arterial blood by Pulse oximetry 96 % 96 % MEDENT ([facility]) Heart rate 68 /min 68 /min MED[facility] ([facility]) Body weight 154.12 [lb_av] 154.12 [lb_av] eCW1 ([facility]) Body height [in_i] eCW1 ([facility] to [facility]) Body mass index (BMI) [Ratio] 21.49 kg/m2 21.49 kg/m2 [facility] ([facility]) Heart rate 70 /min 70 /min eCW1 ([facility]) Respiratory rate 18 /min 18 /min eCW1 ([facility]) Body temperature 98 [degF] 98 [degF] eCW1 ([facility]) Systolic blood pressure 129 mm[Hg] 129 mm[Hg] e CW1 ([facility]) Diastolic blood pressure 76 mm[Hg] 76 mm[Hg] eCW1 ([facility]) Body weight 160 [lb_av] 160 [lb_av] eCW1 ([facility]) Body weight 72.58 kg 72.58 kg eCW1 ([facility]) Body height [in_i] eCW1 ([facility]) Body mass index (BMI) [Ratio] 22.31 kg/m2 22.31 kg/m2 eCW1 ([facility]) Systolic blood pressure 148 mm[Hg] 148 mm[Hg] e CW1 ([facility]) Diastolic blood pressure 68 mm[Hg] 68 mm[Hg] eCW1 ([facility]) Body weight 160 [lb_av] 160 [lb_av] eCW1 ([facility]) Body weight 72.58 kg 72.58 kg eCW1 ([facility]) Body height [in_i] eCW1 ([facility]) Body mass index (BMI) [Ratio] 22.31 kg/m2 22.31 kg/m2 eCW1 ([facility]) Systolic blood pressure 128 mm[Hg] 128 mm[Hg] e CW1 ([facility]) Diastolic blood pressure 74 mm[Hg] 74 mm[Hg] eCW1 ([facility]) Systolic blood pressure 156 mm[Hg] 156 mm[Hg] M EDENT ([facility]) Diastolic blood pressure 77 mm[Hg] 77 mm[Hg] [facility] ([facility]) Heart rate 59 /min 59 /min [facility] ([facility]) Body temperature 98.2 [degF] 98.2 [degF] [facility] ([facility]) Body weight 70.308 kg 70.308 kg [facility] ([facility]) Body height 70 [in_i] 70 [in_i] [facility] ([facility]) 5'10" Body weight 155.00 [lb_av] 155.00 [lb_av] MEDEN T ([facility]) Body mass index (BMI) [Ratio] 22.2 kg/m2 22.2 k g/m2 [facility] ([facility]) [place] body weight 166 [lb_av] 166 [lb_av] MEDEN T ([facility]) Body surface area Derived from formula 1.87 m2 1.87 m2 [facility] ([facility]) Body weight 155.00 [lb_av] 155.00 [lb_av] MEDEN T ([facility]) Body height 71 [in_i] 71 [in_i] MEDENT ([facility]) 5'11" Body mass index (BMI) [Ratio] 21.6 kg/m2 21.6 k g/m2 [facility] ([facility]) Systolic blood pressure 130 mm[Hg] 130 mm[Hg] M EDENT ([facility]) Diastolic blood pressure 70 mm[Hg] 70 mm[Hg] MEDENT ([facility]) Body weight 155.00 [lb_av] 155.00 [lb_av] MEDEN T ([facility]) Body height 71 [in_i] 71 [in_i] MEDENT ([facility]) 5'11" Body mass index (BMI) [Ratio] 21.6 kg/m2 21.6 k g/m2 MEDENT ([facility]) Body weight 160 [lb_av] 160 [lb_av] eCW1 ([facility]) Body height [in_i] eCW1 ([facility]) Body mass index (BMI) [Ratio] 22.31 kg/m2 22.31 kg/m2 eCW1 ([facility]) Heart rate 67 /min 67 /min eCW1 ([facility]) Respiratory rate 20 /min 20 /min eCW1 ([facility]) Body temperature 96.9 [degF] 96.9 [degF] eCW1 ( [facility]) Systolic blood pressure 122 mm[Hg] 122 mm[Hg] e CW1 ([facility]) Diastolic blood pressure 78 mm[Hg] 78 mm[Hg] eCW1 ([facility]) Body weight 160.00 [lb_av] 160.00 [lb_av] MEDEN T ([facility]) Respiratory rate 17 /min 17 /min MEDENT ( [facility]) Systolic blood pressure 112 mm[Hg] 112 mm[Hg] M EDENT ([facility]) Diastolic blood pressure 62 mm[Hg] 62 mm[Hg] MEDENT ([facility]) Body weight 160.00 [lb_av] 160.00 [lb_av] MEDEN T ([facility]) Respiratory rate 17 /min 17 /min MEDENT ( [facility]) Body weight 160 [lb_av] 160 [lb_av] eCW1 ([facility]) Body height [in_i] eCW1 ([facility]) Body mass index (BMI) [Ratio] 22.31 kg/m2 22.31 kg/m2 W1 ([facility]) Heart rate 72 /min 72 /min eCW1 ([facility]) Respiratory rate 18 /min 18 /min eCW1 ([facility]) Body temperature 98.0 [degF] 98.0 [degF] eCW1 ( [facility]) Systolic blood pressure 130 mm[Hg] 130 mm[Hg] e CW1 ([facility]) Diastolic blood pressure 78 mm[Hg] 78 mm[Hg] eCW1 ([facility]) Systolic blood pressure 140 mm[Hg] 140 mm[Hg] M EDENT ([facility] Body weight 164.25 [lb_av] 164.25 [lb_av] MEDEN T ([facility] ) Oxygen saturation in Arterial blood by Pulse oximetry 96 % 96 % [facility] ([facility] ) Diastolic blood pressure 100 mm[Hg] 100 mm[Hg] [facility] ([facility] ) Body mass index (BMI) [Ratio] 22.9 kg/m2 22.9 k g/m2 MED[facility] ([facility] ) Heart rate 70 /min 70 /min MED[facility] ([facility] ) Body temperature 96.9 [degF] 96.9 [degF] [facility] ([facility] ) Body height 71 [in_i] 71 [in_i] MED[facility] ([facility] ) 5'11" Systolic blood pressure 132 mm[Hg] 132 mm[Hg] [facility] Diastolic blood pressure 70 mm[Hg] 70 mm[Hg] [facility] Heart rate 74 /min 74 /min [facility] Body height 177.8 cm 177.8 cm [facility] Body weight 74.39 kg 74.39 kg [facility] Body mass index (BMI) [Ratio] 23.53 kg/m2 23.53 kg/m2 [facility] Oxygen saturation in Arterial blood by Pulse oximetry 98 % 98 % [facility] Oxygen saturation in Arterial blood by Pulse oximetry 93 % 93 % MEDENT ([facility]) Body height 70 [in_i] 70 [in_i] MEDENT ([facility] 5'10" Body weight 164.00 [lb_av] 164.00 [lb_av] MEDEN T ([facility] ) Body mass index (BMI) [Ratio] 23.5 kg/m2 23.5 k g/m2 MED[facility] ([facility]) [place] body weight 166 [lb_av] 166 [lb_av] MEDEN T ([facility]) Body weight 74.390 kg 74.390 kg [facility] ([facility]) Body surface area Derived from formula 1.92 m2 1.92 m2 [facility] ([facility]) Systolic blood pressure 126 mm[Hg] 126 mm[Hg] M EDENT ([facility]) Diastolic blood pressure 78 mm[Hg] 78 mm[Hg] [facility] ([facility]) Heart rate 67 /min 67 /min [facility] ([facility]) Oxygen saturation in Arterial blood by Pulse oximetry 93 % 93 % [facility] ([facility]) Body height 70 [in_i] 70 [in_i] [facility] ([facility]) 5'10" Body weight 164.00 [lb_av] 164.00 [lb_av] MEDEN T ([facility]) Body mass index (BMI) [Ratio] 23.5 kg/m2 23.5 k g/m2 [facility] ([facility]) [place] body weight 166 [lb_av] 166 [lb_av] MEDEN T ([facility]) Body weight 74.390 kg 74.390 kg [facility] ([facility]) Body surface area Derived from formula 1.92 m2 1.92 m2 [facility] ([facility]) Body weight 162 [lb_av] 162 [lb_av] eCW1 ([facility]) Body height [in_i] eCW1 ([facility]) Body mass index (BMI) [Ratio] 22.59 kg/m2 22.59 kg/m2 eCW1 ([facility]) Heart rate 66 /min 66 /min eCW1 ([facility]) Respiratory rate 18 /min 18 /min eCW1 ([facility]) Body temperature 98.8 [degF] 98.8 [degF] eCW1 ( [facility]) Systolic blood pressure 128 mm[Hg] 128 mm[Hg] e CW1 ([facility]) Diastolic blood pressure 78 mm[Hg] 78 mm[Hg] eCW1 ([facility]) Body weight 162.4 [lb_av] 162.4 [lb_av] eCW1 ([facility]) Body height [in_i] eCW1 ([facility]) Body mass index (BMI) [Ratio] 22.65 kg/m2 22.65 kg/m2 eCW1 ([facility]) Heart rate 90 /min 90 /min eCW1 ([facility]) Respiratory rate 18 /min 18 /min eCW1 ([facility]) Body temperature 97.8 [degF] 97.8 [degF] eCW1 ( [facility]) Systolic blood pressure 158 mm[Hg] 158 mm[Hg] e CW1 ([facility]) Diastolic blood pressure 72 mm[Hg] 72 mm[Hg] eCW1 ([facility]) Body weight 170.10 [lb_av] 170.10 [lb_av] eCW1 ([facility]) Body height [in_i] eCW1 ([facility]) Body mass index (BMI) [Ratio] 23.72 kg/m2 23.72 kg/m2 eCW1 ([facility]) Heart rate 76 /min 76 /min eCW1 ([facility]) Respiratory rate 18 /min 18 /min eCW1 ([facility]) Body temperature 98.2 [degF] 98.2 [degF] eCW1 ( [facility]) Systolic blood pressure 194 mm[Hg] 194 mm[Hg] e CW1 ([facility]) Diastolic blood pressure 98 mm[Hg] 98 mm[Hg] eCW1 ([facility]) Body weight 170 [lb_av] 170 [lb_av] eCW1 ([facility]) Body height [in_i] eCW1 ([facility]) Respiratory rate 18 /min 18 /min eCW1 ([facility]) Body temperature 98.8 [degF] 98.8 [degF] eCW1 ( [facility]) Systolic blood pressure 153 mm[Hg] 153 mm[Hg] e CW1 ([facility]) Body mass index (BMI) [Ratio] 23.71 kg/m2 23.71 kg/m2 eCW1 ([facility]) Heart rate 76 /min 76 /min eCW1 ([facility]) Diastolic blood pressure 77 mm[Hg] 77 mm[Hg] eCW1 ([facility]) Body temperature 96.4 [degF] 96.4 [degF] [facility] ([facility]) Body height 71 [in_i] 71 [in_i] MEDENT ([facility]) 5'11" Body mass index (BMI) [Ratio] 24.4 kg/m2 24.4 k g/m2 MED[facility] ([facility]) Systolic blood pressure 130 mm[Hg] 130 mm[Hg] M EDENT ([facility]) Diastolic blood pressure 86 mm[Hg] 86 mm[Hg] [facility] ([facility]) Heart rate 72 /min 72 /min [facility] ([facility]) Body weight 175.25 [lb_av] 175.25 [lb_av] MEDEN T ([facility]) Oxygen saturation in Arterial blood by Pulse oximetry 96 % 96 % [facility] ([facility]) Body weight 170 [lb_av] 170 [lb_av] eCW1 ([facility]) Body weight kg eCW1 ([facility]) Body height [in_i] eCW1 ([facility]) Heart rate 67 /min 67 /min eCW1 ([facility]) Respiratory rate 18 /min 18 /min eCW1 ([facility]) Body mass index (BMI) [Ratio] 23.71 kg/m2 23.71 kg/m2 eCW1 ([facility]) Body temperature 98.4 [degF] 98.4 [degF] eCW1 ( [facility]) Systolic blood pressure 144 mm[Hg] 144 mm[Hg] e CW1 ([facility]) Diastolic blood pressure 69 mm[Hg] 69 mm[Hg] eCW1 ([facility]) Body weight 170 [lb_av] 170 [lb_av] eCW1 ([facility]) Body weight kg eCW1 ([facility]) Body height [in_i] eCW1 ([facility]) Body mass index (BMI) [Ratio] 23.71 kg/m2 23.71 kg/m2 eCW1 ([facility]) Heart rate 61 /min 61 /min eCW1 ([facility] [place]) Respiratory rate 20 /min 20 /min eCW1 ([facility]) Body temperature 97 [degF] 97 [degF] eCW1 ([facility]) Systolic blood pressure 159 mm[Hg] 159 mm[Hg] e CW1 ([facility]) Diastolic blood pressure 72 mm[Hg] 72 mm[Hg] eCW1 ([facility]) Body weight 170 [lb_av] 170 [lb_av] eCW1 ([facility]) Body weight kg eCW1 ([facility] to [facility]) Body height [in_i] eCW1 ([facility]) Body mass index (BMI) [Ratio] 23.71 kg/m2 23.71 kg/m2 eCW1 ([facility]) Heart rate 70 /min 70 /min eCW1 ([facility] [place]) Respiratory rate 18 /min 18 /min eCW1 ([facility]) Body temperature 98.4 [degF] 98.4 [degF] eCW1 ( [facility]) Systolic blood pressure 157 mm[Hg] 157 mm[Hg] e CW1 ([facility]) Diastolic blood pressure 69 mm[Hg] 69 mm[Hg] eCW1 ([facility]) Body weight 170 [lb_av] 170 [lb_av] eCW1 ([facility]) Body weight kg eCW1 ([facility]) Body height [in_i] eCW1 ([facility]) Body mass index (BMI) [Ratio] 23.71 kg/m2 23.71 kg/m2 eCW1 ([facility]) Heart rate 68 /min 68 /min eCW1 ([facility] [place]) Respiratory rate 16 /min 16 /min eCW1 ([facility]) Body temperature 96.7 [degF] 96.7 [degF] eCW1 ( [facility]) Systolic blood pressure 172 mm[Hg] 172 mm[Hg] e CW1 ([facility]) Diastolic blood pressure 77 mm[Hg] 77 mm[Hg] eCW1 ([facility]) Body weight 170.4 [lb_av] 170.4 [lb_av] eCW1 ([facility]) Body height [in_i] eCW1 ([facility]) Body mass index (BMI) [Ratio] 23.76 kg/m2 23.76 kg/m2 eCW1 ([facility]) Heart rate 75 /min 75 /min eCW1 ([facility] [place]) Respiratory rate 20 /min 20 /min eCW1 ([facility]) Body temperature 98.3 [degF] 98.3 [degF] eCW1 ( [facility]) Systolic blood pressure 160 mm[Hg] 160 mm[Hg] e CW1 ([facility]) Diastolic blood pressure 75 mm[Hg] 75 mm[Hg] eCW1 ([facility]) Body weight 172 [lb_av] 172 [lb_av] eCW1 ([facility]) Body weight kg eCW1 ([facility]) Body height [in_i] eCW1 ([facility]) Body mass index (BMI) [Ratio] 23.99 kg/m2 23.99 kg/m2 eCW1 ([facility]) Heart rate 86 /min 86 /min eCW1 ([facility] [place]) Respiratory rate 18 /min 18 /min eCW1 ([facility]) Body temperature 97.7 [degF] 97.7 [degF] eCW1 ( [facility]) Systolic blood pressure 118 mm[Hg] 118 mm[Hg] e CW1 ([facility]) Diastolic blood pressure 86 mm[Hg] 86 mm[Hg] eCW1 ([facility]) Respiratory rate 18 /min 18 /min eCW1 ([facility]) Body weight 172 [lb_av] 172 [lb_av] eCW1 ([facility]) Body weight kg eCW1 ([facility]) Body height 71 [in_i] 71 [in_i] eCW1 ([facility]) Body mass index (BMI) [Ratio] 23.99 kg/m2 23.99 kg/m2 eCW1 ([facility]) Heart rate 77 /min 77 /min eCW1 ([facility] [place]) Body temperature 97.5 [degF] 97.5 [degF] eCW1 ( [facility]) Systolic blood pressure 149 mm[Hg] 149 mm[Hg] e CW1 ([facility]) Diastolic blood pressure 70 mm[Hg] 70 mm[Hg] eCW1 ([facility]) Body weight 172 [lb_av] 172 [lb_av] eCW1 ([facility]) Body height 71 [in_i] 71 [in_i] eCW1 ([facility]) Body mass index (BMI) [Ratio] 23.99 kg/m2 23.99 kg/m2 eCW1 ([facility]) Heart rate 73 /min 73 /min eCW1 ([facility] [place]) Respiratory rate 19 /min 19 /min eCW1 ([facility]) Body temperature 97.9 [degF] 97.9 [degF] eCW1 ( [facility]) Systolic blood pressure 154 mm[Hg] 154 mm[Hg] e CW1 ([facility]) Diastolic blood pressure 96 mm[Hg] 96 mm[Hg] eCW1 ([facility]) Body weight 170 [lb_av] 170 [lb_av] eCW1 ([facility]) Body weight kg eCW1 ([facility]) Body height [in_i] eCW1 ([facility]) Body mass index (BMI) [Ratio] 23.71 kg/m2 23.71 kg/m2 eCW1 ([facility]) Heart rate 80 /min 80 /min eCW1 ([facility] [place]) Respiratory rate 20 /min 20 /min eCW1 ([facility]) Body temperature 97 [degF] 97 [degF] eCW1 ([facility]) Systolic blood pressure 192 mm[Hg] 192 mm[Hg] e CW1 ([facility]) Diastolic blood pressure 91 mm[Hg] 91 mm[Hg] eCW1 ([facility]) Body weight 1609 [lb_av] 1609 [lb_av] eCW1 ([facility]) Body temperature 97.5 [degF] 97.5 [degF] eCW1 ( [facility]) Systolic blood pressure 196 mm[Hg] 196 mm[Hg] e CW1 ([facility]) Diastolic blood pressure 88 mm[Hg] 88 mm[Hg] eCW1 ([facility]) Body height [in_i] eCW1 ([facility]) Body mass index (BMI) [Ratio] 224.39 kg/m2 224. 39 kg/m2 eCW1 ([facility]) Heart rate 72 /min 72 /min eCW1 ([facility] [place]) Respiratory rate 20 /min 20 /min eCW1 ([facility]) Body mass index (BMI) [Ratio] 24.1 kg/m2 24.1 k g/m2 MEDENT ([facility] ) [place] body weight 166 [lb_av] 166 [lb_av] MEDEN T ([facility], ) Systolic blood pressure 143 mm[Hg] 143 mm[Hg] M EDENT ([facility], ) Diastolic blood pressure 75 mm[Hg] 75 mm[Hg] MEDENT ([facility], ) Heart rate 68 /min 68 /min MEDENT ([facility], ) Body height 70 [in_i] 70 [in_i] MEDENT ([facility]) 5'10" Body weight 168.25 [lb_av] 168.25 [lb_av] MEDEN T ([facility]) Body weight 76.318 kg 76.318 kg [facility] ([facility]) Body surface area Derived from formula 1.94 m2 1.94 m2 [facility] ([facility]) Systolic blood pressure 122 mm[Hg] 122 mm[Hg] M EDENT ([facility]) Body weight 170.00 [lb_av] 170.00 [lb_av] MEDEN T ([facility]) Body mass index (BMI) [Ratio] 24.4 kg/m2 24.4 k g/m2 [facility] ([facility]) [place] body weight 166 [lb_av] 166 [lb_av] MEDEN T ([facility]) Body weight 77.112 kg 77.112 kg [facility] ([facility]) Diastolic blood pressure 72 mm[Hg] 72 mm[Hg] [facility] ([facility]) Heart rate 72 /min 72 /min [facility] ([facility]) Oxygen saturation in Arterial blood by Pulse oximetry 97 % 97 % [facility] ([facility]) Room Air Body temperature 98.2 [degF] 98.2 [degF] [facility] ([facility]) Body height 70 [in_i] 70 [in_i] [facility] ([facility]) 5'10" Systolic blood pressure 134 mm[Hg] 134 mm[Hg] [facility] Body weight 77.112 kg 77.112 [facility] Diastolic blood pressure 72 mm[Hg] 72 mm[Hg] [facility] ([facility]) Body height 70 [in_i] 70 [in_i] [facility] ([facility]) 5'10" Body weight 170.00 [lb_av] 170.00 [lb_av] MEDEN T ([facility]) Body mass index (BMI) [Ratio] 24.4 kg/m2 24.4 k g/m2 [facility] ([facility], ) ID Date Data Source [id number] 06/20/2020 01:15:58 PM EDT [facility] Name Value Range Interpretation Code Description Data Source(s) WEIGHT RECORDED 172.[address] [facility] WEIGHT RECORDED 172.[address] [facility] WEIGHT RECORDED 173.[address] [facility] WEIGHT RECORDED 166.[address] [facility] Body height Measured 71 in 71 in [facility] TRANSFER FROM [facility] Patient Treatment Plan of Care Planned Activity Planned Date Details Description Data Source (s) Nystatin [id number] UNT/ML Oral Suspension 12/19/2020 12:00:00 AM EDT eCW1 ([facility]) Clindamycin 300 MG Oral Capsule 12/03/2020 12:00:00 AM EDT eCW1 ([facility]) Clindamycin 300 MG Oral Capsule 12/03/2020 12:00:00 AM EDT eCW1 ([facility]) May Have - 10/15/2020 12:00:00 AM EDT e CW1 ([facility]) May Have - 10/15/2020 12:00:00 AM EDT e CW1 ([facility]) May Have - 10/15/2020 12:00:00 AM EDT e CW1 ([facility]) May Have - 10/15/2020 12:00:00 AM EDT e CW1 ([facility]) May Have - 10/15/2020 12:00:00 AM EDT e CW1 ([facility]) May Have - 10/15/2020 12:00:00 AM EDT e CW1 ([facility]) Mirtazapine 15 MG Oral Tablet 08/06/2020 12:00:00 AM EDT eCW1 ([facility]) Mirtazapine 15 MG Oral Tablet 08/06/2020 12:00:00 AM EDT eCW1 ([facility]) Mirtazapine 15 MG Oral Tablet 08/06/2020 12:00:00 AM EDT eCW1 ([facility]) Terazosin 5 MG Oral Capsule 07/24/2020 12:00:00 AM EDT eCW1 ([facility]) Terazosin 5 MG Oral Capsule 07/24/2020 12:00:00 AM EDT eCW1 ([facility]) Terazosin 5 MG Oral Capsule 07/24/2020 12:00:00 AM EDT eCW1 ([facility]) Terazosin 5 MG Oral Capsule 07/24/2020 12:00:00 AM EDT eCW1 ([facility]) Terazosin 5 MG Oral Capsule 07/24/2020 12:00:00 AM EDT eCW1 ([facility]) Terazosin 5 MG Oral Capsule 07/24/2020 12:00:00 AM EDT eCW1 ([facility]) quetiapine 25 MG Oral Tablet 07/09/2020 12:00:00 AM EDT [facility] Propranolol Hydrochloride 10 MG Oral Tablet 07/09/2020 12:00:00 AM EDT [facility] Hannah-Bid Probiotic - 07/08/2020 12:00:00 AM EDT eCW1 ([facility]) Hannah-Bid Probiotic - 07/08/2020 12:00:00 AM EDT eCW1 ([facility]) Hannah-Bid Probiotic - 07/08/2020 12:00:00 AM EDT eCW1 ([facility]) Hannah-Bid Probiotic - 07/08/2020 12:00:00 AM EDT eCW1 ([facility]) Hannah-Bid Probiotic - 07/08/2020 12:00:00 AM EDT eCW1 ([facility]) Hannah-Bid Probiotic - 07/08/2020 12:00:00 AM EDT eCW1 ([facility]) Hannah-Bid Probiotic - 07/08/2020 12:00:00 AM EDT eCW1 ([facility]) Hannah-Bid Probiotic - 07/08/2020 12:00:00 AM EDT eCW1 ([facility]) Hannah-Bid Probiotic - 07/08/2020 12:00:00 AM EDT eCW1 ([facility]) Hannah-Bid Probiotic - 07/08/2020 12:00:00 AM EDT eCW1 ([facility]) Hannah-Bid Probiotic - 07/08/2020 12:00:00 AM EDT eCW1 ([facility]) Terazosin 5 MG Oral Capsule 06/24/2020 12:00:00 AM EDT [facility] Terazosin 5 MG Oral Capsule 06/23/2020 12:00:00 AM EDT eCW1 ([facility]) Terazosin 5 MG Oral Capsule 06/23/2020 12:00:00 AM EDT eCW1 ([facility]) Terazosin 5 MG Oral Capsule 06/23/2020 12:00:00 AM EDT eCW1 ([facility]) Terazosin 5 MG Oral Capsule 06/23/2020 12:00:00 AM EDT eCW1 ([facility]) Terazosin 5 MG Oral Capsule 06/23/2020 12:00:00 AM EDT eCW1 ([facility]) Terazosin 5 MG Oral Capsule 06/23/2020 12:00:00 AM EDT eCW1 ([facility]) Terazosin 5 MG Oral Capsule 06/23/2020 12:00:00 AM EDT eCW1 ([facility]) Terazosin 5 MG Oral Capsule 06/23/2020 12:00:00 AM EDT eCW1 ([facility]) Terazosin 5 MG Oral Capsule 06/23/2020 12:00:00 AM EDT eCW1 ([facility]) Terazosin 5 MG Oral Capsule 06/23/2020 12:00:00 AM EDT eCW1 ([facility]) Terazosin 5 MG Oral Capsule 06/23/2020 12:00:00 AM EDT eCW1 ([facility]) clopidogrel 75 MG Oral Tablet 06/11/2020 12:00:00 AM [facility] atorvastatin 40 MG Oral Tablet 06/11/2020 12:00:00 AM [facility] clopidogrel 75 MG Oral Tablet 06/07/2020 12:00:00 AM [facility] Amlodipine 5 MG Oral Tablet 06/06/2020 12:00:00 AM [facility] pantoprazole 40 MG Delayed Release Oral Tablet 06/06/2020 12:00:00 AM [facility] atorvastatin 40 MG Oral Tablet 06/06/2020 12:00:00 AM [facility] quetiapine 25 MG Oral Tablet 06/05/2020 [facility] Oral Table[facility] 06/05/2020 12:00:00 AM [facility] Glucose 0.417 MG/MG Oral Gel 06/05/2020 12:00:00 AM [facility] Benzocaine 15 MG / Menthol 3.6 MG Oral Lozenge 06/05/2020 12:00:00 AM [facility] Benzocaine 15 MG / Menthol 3.6 MG Oral Lozenge 06/05/2020 12:00:00 AM [facility] Bisacodyl 10 MG Rectal Suppository 06/05/2020 12:00:00 AM [facility] Glucose 0.417 MG/MG Oral Gel 06/05/2020 12:00:00 AM [facility] Docusate Sodium 100 MG Oral Capsule 06/05/2020 12:00:00 AM [facility] 8.6 MG Oral Tablet 06/05/2020 12:00:00 AM [facility] quetiapine 25 MG Oral Tablet 06/05/2020 12:00:00 AM [facility] Propranolol Hydrochloride 10 MG Oral Tablet 06/05/2020 12:00:00 AM [facility] 35.2 MG/ML Oral Solution 06/03/2020 01:12:35 AM [facility] Bisacodyl 10 MG Rectal Suppository 06/03/2020 01:12:35 AM [facility] Benzocaine 15 MG / Menthol 3.6 MG Oral Lozenge 05/31/2020 03:51:37 PM [facility] dextrose 50 % IV solution 25 mL 05/31/2020 03:53:07 AM [facility] Glucagon 1 MG Injection 05/31/2020 03:53:07 AM [facility] Glucose 0.417 MG/MG Oral Gel 05/31/2020 03:53:07 AM [facility] Doxycycline Monohydrate 100 MG Oral Capsule 05/26/2020 12:00:00 AM [facility] doxycycline hyclate 100 MG Oral Capsule 05/26/2020 12:00:00 AM [facility] Doxycycline Monohydrate 100 MG Oral Capsule 05/22/2020 12:00:00 AM EST eCW1 ([facility]) Doxycycline Monohydrate 100 MG Oral Capsule 05/22/2020 12:00:00 AM EST eCW1 ([facility]) Doxycycline Monohydrate 100 MG Oral Capsule 05/22/2020 12:00:00 AM EST eCW1 ([facility]) Doxycycline Monohydrate 100 MG Oral Capsule 05/22/2020 12:00:00 AM EST eCW1 ([facility]) Doxycycline Monohydrate 100 MG Oral Capsule 05/22/2020 12:00:00 AM EST eCW1 ([facility]) Flonase Allergy Relief 50 MCG/ACT 05/16/2020 12:00:00 AM EST eCW1 ([facility]) Flonase Allergy Relief 50 MCG/ACT 05/16/2020 12:00:00 AM EST eCW1 ([facility]) fluticasone (FLONASE) 50 MCG/ACT nasal spray 05/16/2020 12:00:00 AM EST [facility] Flonase Allergy Relief 50 MCG/ACT 05/16/2020 12:00:00 AM EST eCW1 ([facility]) Flonase Allergy Relief 50 MCG/ACT 05/16/2020 12:00:00 AM EST eCW1 ([facility]) Flonase Allergy Relief 50 MCG/ACT 05/16/2020 12:00:00 AM EST eCW1 ([facility]) Flonase Allergy Relief 50 MCG/ACT 05/16/2020 12:00:00 AM EST eCW1 ([facility]) Flonase Allergy Relief 50 MCG/ACT 05/16/2020 12:00:00 AM EST eCW1 ([facility]) Flonase Allergy Relief 50 MCG/ACT 05/16/2020 12:00:00 AM EST eCW1 ([facility]) Budesonide 3 MG Delayed Release Oral Capsule 04/29/2020 12:00:00 AM EST [facility] 12 HR Guaifenesin 600 MG Extended Release Oral Tablet [Mucinex] 02/01/2020 12:00:00 AM EDT eCW1 ([facility]) 12 HR Guaifenesin 600 MG Extended Release Oral Tablet [Mucinex] 02/01/2020 12:00:00 AM EDT eCW1 ([facility]) 12 HR Guaifenesin 600 MG Extended Release Oral Tablet [Mucinex] 02/01/2020 12:00:00 AM EDT eCW1 ([facility]) 12 HR Guaifenesin 600 MG Extended Release Oral Tablet [Mucinex] 02/01/2020 12:00:00 AM EDT eCW1 ([facility]) 12 HR Guaifenesin 600 MG Extended Release Oral Tablet [Mucinex] 02/01/2020 12:00:00 AM EDT eCW1 ([facility]) 12 HR Guaifenesin 600 MG Extended Release Oral Tablet [Mucinex] 02/01/2020 12:00:00 AM EDT eCW1 ([facility]) 12 HR Guaifenesin 600 MG Extended Release Oral Tablet [Mucinex] 02/01/2020 12:00:00 AM EDT eCW1 ([facility]) 12 HR Guaifenesin 600 MG Extended Release Oral Tablet [Mucinex] 02/01/2020 12:00:00 AM EDT eCW1 ([facility]) doxycycline hyclate 100 MG Oral Tablet 02/01/2020 12:00:00 AM EDT eCW1 ([facility]) 12 HR Guaifenesin 600 MG Extended Release Oral Tablet [Mucinex] 02/01/2020 12:00:00 AM EDT eCW1 ([facility]) doxycycline hyclate 100 MG Oral Tablet 02/01/2020 12:00:00 AM EDT eCW1 ([facility]) 12 HR Guaifenesin 600 MG Extended Release Oral Tablet [Mucinex] 02/01/2020 12:00:00 AM EDT eCW1 ([facility]) doxycycline hyclate 100 MG Oral Tablet 02/01/2020 12:00:00 AM EDT eCW1 ([facility]) 12 HR Guaifenesin 600 MG Extended Release Oral Tablet [Mucinex] 02/01/2020 12:00:00 AM EDT eCW1 ([facility]) Acetaminophen 300 MG / Codeine Phosphate 30 MG Oral Ta blet 11/22/2019 12:00:00 AM EDT [facility] sitagliptin 50 MG Oral Tablet [Januvia] 09/25/2019 12:00:00 AM EDT [facility] 7 ACTUAT umeclidinium 0.0625 MG/ACTUAT Dry Powder Inha ler [Incruse] 07/20/2019 12:00:00 AM EDT [facility] Doxepin Hydrochloride 50 MG Oral Capsule 02/03/2019 12:00:00 AM EDT [facility] repaglinide 1 MG Oral Tablet 11/28/2018 12:00:00 AM EDT [facility] Bisoprolol Fumarate 5 MG Oral Tablet [facility] atorvastatin 20 MG Oral Tablet [facility] Carbidopa 25 MG / Levodopa 100 MG Oral Tablet [facility] pantoprazole 40 MG Delayed Release Oral Tablet [facility] Amlodipine 10 MG Oral Tablet [facility] Bisoprolol Fumarate 5 MG Oral Tablet [facility] atorvastatin 20 MG Oral Tablet [facility] Doxepin Hydrochloride 50 MG Oral Capsule [facility]
[2021-01-24 01:51] LABS: ABG BASE EXCESS 0.4 (-2.0-2.0); ABG HCO3 23.5 MEQ/L (22.0-26.0); ABG O2 SATURATION 95.9 % (95.0-99.0); ABG PARTIAL PRESSURE CO2 33.4 mmHg (35.0-45.0); ABG PARTIAL PRESSURE O2 77.4 mmHg (75.0-100.0); ABG STANDARD HCO3 24.8 MEQ/L (22.0-26.0); ABG TOTAL CO2 24.6 MEQ/L (23.0-31.0); ABG pH (ARTERIAL) 7.466 UNITS (7.350-7.450)
[2021-01-24 01:55] LABS: ALBUMIN 3.1 GM/DL (3.2-5.2); ALT/SGPT 28 U/L (12-78); BILIRUBIN,DIRECT 0.3 MG/DL (0.0-0.2); BILIRUBIN,TOTAL 1.3 MG/DL (0.2-1.0); BLOOD UREA NITROGEN 26 MG/DL (7-18); CALCIUM LEVEL 8.4 MG/DL (8.8-10.2); CARBON DIOXIDE LEVEL 28 MEQ/L (21-32); CHLORIDE LEVEL 104 MEQ/L (98-107); CK-MB VALUE MASS 1.2 NG/ML (<3.6); CPK CREATINE PHOSPHOKINASE 63 U/L (39-308); GLOMERULAR FILTRATION RATE 41.2 (>35); GLUCOSE, FASTING 122 MG/DL (70-100); NT-PRO BNP 617 PG/ML (<450); SODIUM LEVEL 140 MEQ/L (136-145); TOTAL PROTEIN 5.6 GM/DL (6.4-8.2); TROPONIN I < 0.02 NG/ML (< 0.10)
--- NOTE | 2021-01-24 03:20 | REPVR ---
PROCEDURE INFORMATION: Exam: XR Chest Exam date and time: 01/24/2021 1:10 AM Age: 85 years old Clinical indication: Dyspnea/cough TECHNIQUE: Imaging protocol: XR of the chest. Views: 1 view. COMPARISON: CR RIBS UNILATERAL WITH PA CHEST 01/11/2020 12:16 PM (The report from this study was not available for review at the time of this interpretation.) FINDINGS: Lungs: There are 2 surgical clips in the left upper lobe. No lung consolidation or pulmonary edema is noted. Pleural spaces: Unremarkable. No pleural effusion. No pneumothorax. Heart/Mediastinum: No cardiomegaly. Vasculature: The thoracic aorta is tortuous and similar in appearance compared to the chest x-ray on 01/11/2020. Bones/joints: Unremarkable. IMPRESSION: No radiographic evidence for an acute cardiopulmonary process. Electronically signed by: Boo Bal On 01/24/2021 03:19:56 AM
[2021-01-24 04:57] VITALS: BP 141/65
--- NOTE | 2021-01-24 07:01 | ECGEPIP ---
[facility] - ED Test Date: 2021-01-24 Pat Name: FRANSISCA HOOVER Department: Room: - Gender: Male [employer]: ANGELICA : [id number] Requested By: RAN Rosado Order Number: [id number] Reading MD: Clive Coppola Measurements Intervals [place] Rate: 81 P: 89 MT: 180 QRS: 11 QRSD: 104 T: 152 QT: 354 QTc: 411 Interpretive Statements Sinus rhythm with occasional premature ventricular complexes and premature atrial complexes ST & T wave abnormality, consider lateral ischemia Similar to tracing done 11-20-19 Electronically Signed on 01-24-2021 7:01:10 EDT by Clive Coppola
== END 2021-01-24 07:02 | disposition home or self-care (01) ==
LOC: M ED 22:50
DX: I95.1 Orthostatic hypotension (principal); E11.9 Type 2 diabetes mellitus without complications; Z79.899 Other long term (current) drug therapy; Z79.84 Long term (current) use of oral hypoglycemic drugs; Z79.4 Long term (current) use of insulin; Z88.1 Allergy status to other antibiotic agents; Z88.8 Allergy status to other drugs, medicaments and biological substances

== ENCOUNTER → 2021-03-06 | Outpatient (REF) | payer MEDICARE, BC ==
[2021-03-06 11:43] LABS: APPEARANCE, URINE CLEAR (CLEAR); BACTERIA, URINE AUTO NEGATIVE (NEGATIVE); BILIRUBIN, URINE AUTO NEGATIVE (NEGATIVE); BLOOD, URINE BLOOD NEGATIVE (NEGATIVE); COLOR, URINE YELLOW (YELLOW); GLUCOSE, URINE (UA) AUTO NEGATIVE (NEGATIVE); KETONE, URINE AUTO NEGATIVE (NEGATIVE); LEUKOCYTE ESTERASE, URINE AUTO NEGATIVE (NEGATIVE); NITRITE, URINE AUTO NEGATIVE (NEGATIVE); PROTEIN, URINE AUTO NEGATIVE (NEGATIVE); RBC, URINE AUTO 0 /HPF (0-3); SPECIFIC GRAVITY URINE AUTO 1.012 (1.002-1.035); SQUAMOUS EPITHELIAL CELL UR AU 0 /HPF (0-6); UROBILINOGEN, URINE AUTO 0.2 mg/dL (0.0-2.0); WBC, URINE AUTO 1 /HPF (0-3)
== END ==
LOC: M SFHCCLAY 08:29
PROVIDERS: ATTEND Family Medicine
DX: E11.22 Type 2 diabetes mellitus with diabetic chronic kidney disease (principal); N30.00 Acute cystitis without hematuria

== ENCOUNTER → 2021-03-26 | Outpatient (REF) | payer MEDICARE, BC | LOC: M SMT 16:45 | PROVIDERS: ATTEND Urology | DX: Z87.440 Personal history of urinary (tract) infections (principal); Z79.899 Other long term (current) drug therapy | CPT/HCPCS: 87086; G0463 ==

== ENCOUNTER → 2021-04-30 | Outpatient (REF) | payer MEDICARE, BC ==
[2021-04-30 16:55] LABS: ALBUMIN 3.9 GM/DL (3.2-5.2); BILIRUBIN,TOTAL 1.4 MG/DL (0.2-1.0); C REACTIVE PROTEIN QUANTITATIV 0.3 MG/DL (0.00-0.30); CALCIUM LEVEL 9.7 MG/DL (8.8-10.2); CREATININE FOR GFR 1.48 MG/DL (0.70-1.30); GLOMERULAR FILTRATION RATE 48.3 (>35); POTASSIUM SERUM 3.9 MEQ/L (3.5-5.1); TOTAL PROTEIN 6.4 GM/DL (6.4-8.2)
[2021-04-30 17:25] LABS: HEMATOCRIT 42.3 % (42.0-52.0); HEMOGLOBIN 14.3 g/dl (13.5-17.5); MEAN CORPUSCULAR HGB CONC 33.8 g/dl (32.0-36.5); MEAN CORPUSCULAR VOLUME 100.5 fl (80.0-96.0); PLATELET COUNT, AUTOMATED 206 10^3/uL (150-450); RED BLOOD COUNT 4.21 10^6/uL (4.30-6.10); WHITE BLOOD COUNT 9.9 10^3/uL (4.0-10.0)
[2021-04-30 17:47] LABS: ERYTHROCYTE SEDIMENTATION RATE 12 mm/hr (0-20)
== END ==
LOC: M LABDRAWC 15:45
PROVIDERS: ATTEND Internal Medicine Gastroenterology
DX: K50.10 Crohn's disease of large intestine without complications (principal); R11.0 Nausea; R14.0 Abdominal distension (gaseous)

== ENCOUNTER → 2021-05-11 | Outpatient (CLI) | payer MEDICARE, BC ==
[~2021-05-11] MED LIST changes: +E-Z-PAQUE 96% w/w SUSP 176GM BTL As Ordered ONE
== END ==
LOC: M RAD 09:46
PROVIDERS: ATTEND Internal Medicine Gastroenterology
DX: K50.10 Crohn's disease of large intestine without complications (principal)

== ENCOUNTER 2021-06-02 09:55 | Inpatient (IN) | payer MEDICARE, BC ==
[~2021-06-02] VITALS: Ht 180.3 cm; Wt 67.9 kg
[~2021-06-02 09:55] MED LIST changes: -E-Z-PAQUE 96% w/w SUSP 176GM BTL As Ordered ONE
[2021-06-02] MEDS ORDERED: NITROGLYCERIN 0.4 MG SUBL TABLET SL PRN (10:15)
[2021-06-02 10:36] LABS: BASO # 0.1 10^3/uL (0.0-0.2); BASO % 0.4 % (0.0-1.0); EOS # 0.2 10^3/uL (0.0-0.5); EOS % 1.7 % (0.0-3.0); HEMATOCRIT 42.1 % (42.0-52.0); HEMOGLOBIN 14.4 g/dl (13.5-17.5); LYMPH # 1.9 10^3/uL (1.5-5.0); LYMPH % 13.6 % (24.0-44.0); MEAN CORPUSCULAR HGB CONC 34.2 g/dl (32.0-36.5); MEAN CORPUSCULAR VOLUME 99.3 fl (80.0-96.0); MONO % 12.7 % (2.0-8.0); NEUTROPHILS % 70.8 % (36.0-66.0); PLATELET COUNT, AUTOMATED 196 10^3/uL (150-450); RED BLOOD COUNT 4.24 10^6/uL (4.30-6.10); WHITE BLOOD COUNT 14.1 10^3/uL (4.0-10.0)
[2021-06-02 10:37] LABS: MONO # 1.8 10^3/uL (0.0-0.8)
[2021-06-02] MEDS ORDERED: ONDANSETRON 4MG/2ML VIAL IV ONE (10:40)
[2021-06-02] MEDS ORDERED: MORPHINE 4 MG/ML 1ML VIAL/SYRINGE (J2270) IV PRN (10:40)
[2021-06-02 12:16] LABS: ALBUMIN 3.8 GM/DL (3.2-5.2); BILIRUBIN,DIRECT 0.3 MG/DL (0.0-0.2); BILIRUBIN,TOTAL 1.3 MG/DL (0.2-1.0); CALCIUM LEVEL 9.8 MG/DL (8.8-10.2); CK-MB VALUE MASS < 1.0 NG/ML (<3.6); CPK CREATINE PHOSPHOKINASE 36 U/L (39-308); CREATININE FOR GFR 1.59 MG/DL (0.70-1.30); GLOMERULAR FILTRATION RATE 44.5 (>35); MB/CK RELATIVE INDEX 2.78 (< OR =4); POTASSIUM SERUM 4.4 MEQ/L (3.5-5.1); THYROID STIMULATING HORMONE 1.75 uIU/ML (0.358-3.740); TOTAL PROTEIN 6.6 GM/DL (6.4-8.2)
[2021-06-02 14:26] LABS: CK-MB VALUE MASS < 1.0 NG/ML (<3.6); CPK CREATINE PHOSPHOKINASE 38 U/L (39-308); MB/CK RELATIVE INDEX 2.63 (< OR =4)
[2021-06-02 15:53] LABS: VENOUS BASE EXCESS -1.4 (-2.0-2.0); VENOUS HCO3 25.3 MEQ/L (23.0-27.0); VENOUS O2 SATURATION 50.7 % (60.0-80.0); VENOUS PARTIAL PRESSURE CO2 50.6 mmHg (38.0-50.0); VENOUS PARTIAL PRESSURE O2 27.7 mmHg (30.0-50.0); VENOUS PH 7.317 UNITS (7.330-7.430); VENOUS STANDARD HCO3 22.2 MEQ/L; VENOUS TOTAL CO2 26.9 MEQ/L (24.0-28.0)
[2021-06-02 16:37] LABS: RSV AMPLIFICATION NEGATIVE (NEGATIVE)
[2021-06-02 18:26] LABS: CK-MB VALUE MASS < 1.0 NG/ML (<3.6); CPK CREATINE PHOSPHOKINASE 38 U/L (39-308); MB/CK RELATIVE INDEX 2.63 (< OR =4)
[2021-06-02] MEDS ORDERED: BUDE3CAP PO (20:31)
[2021-06-02 20:32] VITALS: BP 103/55
[2021-06-02] MEDS ORDERED: SENO8.6T10 PO (20:33)
[2021-06-02 20:34] VITALS: BP 115/58
[2021-06-02] MEDS ORDERED: SPIR-10 PO (20:36)
[2021-06-02] MEDS ORDERED: CLOT10TR PO (20:40)
[2021-06-02] MEDS ORDERED: INCR1INH INH (20:40)
[2021-06-02] MEDS ORDERED: PROP20TA72 PO (20:40)
[2021-06-02] MEDS ORDERED: HOME MED LIST COMPLETE! XX SCH (20:45)
[2021-06-02] MEDS ORDERED: [UNRECOGNIZED DRUG - OTHER] PO (20:49)
[2021-06-03 00:16] VITALS: BP 104/56
[2021-06-03 04:00] VITALS: BP 102/58
[2021-06-03 05:59] LABS: HEMATOCRIT 35.1 % (42.0-52.0); MEAN CORPUSCULAR HEMOGLOBIN 33.9 pg (27.0-33.0); MEAN CORPUSCULAR HGB CONC 33.6 g/dl (32.0-36.5); MEAN CORPUSCULAR VOLUME 100.9 fl (80.0-96.0); PLATELET COUNT, AUTOMATED 145 10^3/uL (150-450); RED BLOOD COUNT 3.48 10^6/uL (4.30-6.10); WHITE BLOOD COUNT 10.3 10^3/uL (4.0-10.0)
[2021-06-03 06:24] LABS: HEMOGLOBIN 11.8 g/dl (13.5-17.5)
[2021-06-03 06:41] LABS: CREATININE FOR GFR 1.92 MG/DL (0.70-1.30)
[2021-06-03 06:42] LABS: ALBUMIN 2.7 GM/DL (3.2-5.2); BILIRUBIN,TOTAL 1.5 MG/DL (0.2-1.0); CALCIUM LEVEL 9.1 MG/DL (8.8-10.2); GLOMERULAR FILTRATION RATE 35.8 (>35); POTASSIUM SERUM 4.5 MEQ/L (3.5-5.1); TOTAL PROTEIN 5.8 GM/DL (6.4-8.2)
[2021-06-03 08:00] VITALS: BP 98/56
[2021-06-03] MEDS: HEPARIN SOD (PORCINE) 5000UNITS/ML 1ML VIAL/SYRINGE SC SCH ×2 (08:02→20:21)
[2021-06-03] MEDS ORDERED: SENOKOT S TAB PO PRN (11:15)
[2021-06-03 12:00] VITALS: BP 129/58
[2021-06-03] MEDS: MULTIVITAMINS/MINERALS THERAP 1 TAB PO SCH (12:41)
[2021-06-03] MEDS: PANTOPRAZOLE 40MG TAB (PROTONIX) PO SCH (12:41)
[2021-06-03] MEDS: allopurinoL 100 MG TAB PO SCH (12:41)
[2021-06-03] MEDS: DOXYCYCLINE HYCLATE 100MG TABLET PO SCH ×2 (12:41→20:22)
[2021-06-03] MEDS: ATORVASTATIN 20 MG TAB PO SCH (12:41)
[2021-06-03] MEDS: ASPIRIN 81MG ENTERIC TABLET PO SCH (12:41)
[2021-06-03] MEDS: LACTOBACILLUS ACIDOPHILUS CAP (BACID) PO SCH (12:41)
[2021-06-03] MEDS: SPIRONOLACTONE 25 MG TAB PO SCH (12:44)
[2021-06-03] MEDS: BUDESONIDE EC 3 MG CAP (ENTOCORT EC) PO SCH (12:50)
[2021-06-03] MEDS: ADVAIR HFA 115/21MCG INHALER INH SCH ×2 (13:00→19:41)
[2021-06-03 16:05] VITALS: BP 136/76
[2021-06-03] MEDS: TIOTROPIUM INHALER/CAPSULE (SPIRIVA) INH SCH (16:29)
[2021-06-03] MEDS: PROPRANOLOL 20 MG TAB PO SCH ×2 (17:32→20:22)
[2021-06-03] MEDS ORDERED: LEVEMIR (INSULIN DETEMIR) 1 UNITS/0.01ML SC SCH (21:00)
[2021-06-03 22:00] VITALS: BP 130/62
[2021-06-04 06:00] VITALS: BP 137/65
[2021-06-04 07:14] LABS: HEMATOCRIT 33.7 % (42.0-52.0); HEMOGLOBIN 11.5 g/dl (13.5-17.5); MEAN CORPUSCULAR HEMOGLOBIN 33.8 pg (27.0-33.0); MEAN CORPUSCULAR HGB CONC 34.1 g/dl (32.0-36.5); MEAN CORPUSCULAR VOLUME 99.1 fl (80.0-96.0); PLATELET COUNT, AUTOMATED 154 10^3/uL (150-450); WHITE BLOOD COUNT 9.3 10^3/uL (4.0-10.0)
[2021-06-04 07:44] LABS: CALCIUM LEVEL 9.6 MG/DL (8.8-10.2); CREATININE FOR GFR 1.55 MG/DL (0.70-1.30); GLOMERULAR FILTRATION RATE 45.8 (>35); POTASSIUM SERUM 4.1 MEQ/L (3.5-5.1)
[2021-06-04] MEDS: ADVAIR HFA 115/21MCG INHALER INH SCH (07:53)
[2021-06-04] MEDS: TIOTROPIUM INHALER/CAPSULE (SPIRIVA) INH SCH (07:53)
[2021-06-04] MEDS: HEPARIN SOD (PORCINE) 5000UNITS/ML 1ML VIAL/SYRINGE SC SCH (08:30)
[2021-06-04] MEDS: ASPIRIN 81MG ENTERIC TABLET PO SCH (08:30)
[2021-06-04] MEDS: BUDESONIDE EC 3 MG CAP (ENTOCORT EC) PO SCH (08:30)
[2021-06-04] MEDS: LACTOBACILLUS ACIDOPHILUS CAP (BACID) PO SCH (08:31)
[2021-06-04] MEDS: PANTOPRAZOLE 40MG TAB (PROTONIX) PO SCH (08:31)
[2021-06-04] MEDS: SPIRONOLACTONE 25 MG TAB PO SCH (08:31)
[2021-06-04] MEDS: MULTIVITAMINS/MINERALS THERAP 1 TAB PO SCH (08:31)
[2021-06-04 08:32] VITALS: BP 124/59
[2021-06-04] MEDS: PROPRANOLOL 20 MG TAB PO SCH (08:32)
[2021-06-04] MEDS: ATORVASTATIN 20 MG TAB PO SCH (08:33)
[2021-06-04] MEDS: allopurinoL 100 MG TAB PO SCH (08:33)
[2021-06-04] MEDS: DOXYCYCLINE HYCLATE 100MG TABLET PO SCH (08:33)
[2021-06-04] MEDS ORDERED: DOXY100T PO (09:19)
== END 2021-06-04 14:08 | disposition home health service (06) | DRG 313 ==
LOC: EDBD 09:55 → M ED 09:55 → M ED INP 16:56 → M PCU 20:30 → M MSPAV 06-03 15:54
PROVIDERS: ADMIT Internal Medicine; ATTEND Internal Medicine
DX: R07.2 Precordial pain (principal); K50.90 Crohn's disease, unspecified, without complications; I25.10 Atherosclerotic heart disease of native coronary artery without angina pectoris; G20 Parkinson's disease; E78.5 Hyperlipidemia, unspecified; J44.9 Chronic obstructive pulmonary disease, unspecified; E11.51 Type 2 diabetes mellitus with diabetic peripheral angiopathy without gangrene; I12.9 Hypertensive chronic kidney disease with stage 1 through stage 4 chronic kidney disease, or unspecified chronic kidney disease; F03.90 Unspecified dementia, unspecified severity, without behavioral disturbance, psychotic disturbance, mood disturbance, and anxiety; N18.30 Chronic kidney disease, stage 3 unspecified; E11.22 Type 2 diabetes mellitus with diabetic chronic kidney disease; R50.9 Fever, unspecified; D72.829 Elevated white blood cell count, unspecified; Z20.822 Contact with and (suspected) exposure to COVID-19; Z79.82 Long term (current) use of aspirin; Z79.899 Other long term (current) drug therapy; Z79.4 Long term (current) use of insulin; Z88.1 Allergy status to other antibiotic agents; Z88.8 Allergy status to other drugs, medicaments and biological substances; Z86.73 Personal history of transient ischemic attack (TIA), and cerebral infarction without residual deficits

== ENCOUNTER → 2021-06-17 | Outpatient (CLI) | payer MEDICARE, BC ==
[~2021-06-17] MED LIST changes: +CLOT10TR PO; +DOXY100T PO; +PROP20TA72 PO; +[UNRECOGNIZED DRUG - OTHER] PO
== END ==
LOC: M RAD 12:42
PROVIDERS: ATTEND Family Medicine
DX: R07.9 Chest pain, unspecified (principal)
CPT/HCPCS: 71046; 78582; A9540; A9567

== ENCOUNTER 2021-06-23 11:55 | Emergency (ER) | payer MEDICARE, BC ==
[~2021-06-23] VITALS: Ht 180.3 cm; Wt 69.1 kg
[2021-06-23 12:30] LABS: BASO % 0.4 % (0.0-1.0); EOS # 0.4 10^3/uL (0.0-0.5); EOS % 3.8 % (0.0-3.0); HEMATOCRIT 39.3 % (42.0-52.0); HEMOGLOBIN 13.6 g/dl (13.5-17.5); LYMPH # 1.3 10^3/uL (1.5-5.0); LYMPH % 12.8 % (24.0-44.0); MEAN CORPUSCULAR HEMOGLOBIN 33.8 pg (27.0-33.0); MEAN CORPUSCULAR HGB CONC 34.6 g/dl (32.0-36.5); MEAN CORPUSCULAR VOLUME 97.8 fl (80.0-96.0); MONO # 1.1 10^3/uL (0.0-0.8); MONO % 11.4 % (2.0-8.0); NEUTROPHILS % 70.8 % (36.0-66.0); PLATELET COUNT, AUTOMATED 196 10^3/uL (150-450); RED BLOOD COUNT 4.02 10^6/uL (4.30-6.10); WHITE BLOOD COUNT 9.9 10^3/uL (4.0-10.0)
[2021-06-23 12:41] LABS: INR 0.94
[2021-06-23] MEDS ORDERED: ASPIRIN 325 MG TAB PO ONE (12:50)
[2021-06-23 12:57] LABS: ALBUMIN 3.5 GM/DL (3.2-5.2); BILIRUBIN,DIRECT 0.3 MG/DL (0.0-0.2); BILIRUBIN,TOTAL 1.2 MG/DL (0.2-1.0); CREATININE FOR GFR 1.56 MG/DL (0.70-1.30); GLOMERULAR FILTRATION RATE 45.5 (>35); POTASSIUM SERUM 4.1 MEQ/L (3.5-5.1); TOTAL PROTEIN 5.9 GM/DL (6.4-8.2)
[2021-06-23 12:59] LABS: CK-MB VALUE MASS 1.1 NG/ML (<3.6); MB/CK RELATIVE INDEX 2.75 (< OR =4)
[2021-06-23 13:29] LABS: RSV AMPLIFICATION NEGATIVE (NEGATIVE)
[2021-06-23 14:28] LABS: CK-MB VALUE MASS < 1.0 NG/ML (<3.6); CPK CREATINE PHOSPHOKINASE 192 U/L (39-308); MB/CK RELATIVE INDEX 0.52 (< OR =4)
[2021-06-23 16:00] VITALS: BP 128/69
== END 2021-06-23 16:26 | disposition home or self-care (01) ==
LOC: M ED 11:55 → EDBD 11:55 → M ED 16:26
DX: R07.89 Other chest pain (principal); R06.02 Shortness of breath; E11.9 Type 2 diabetes mellitus without complications; I10 Essential (primary) hypertension; I25.10 Atherosclerotic heart disease of native coronary artery without angina pectoris; K21.9 Gastro-esophageal reflux disease without esophagitis; Z88.1 Allergy status to other antibiotic agents; Z88.8 Allergy status to other drugs, medicaments and biological substances; Z79.899 Other long term (current) drug therapy; Z79.82 Long term (current) use of aspirin

== ENCOUNTER → 2021-07-22 | Outpatient (REF) | payer MEDICARE, BC | LOC: M SFHCCLAY 15:01 | PROVIDERS: ATTEND Family Medicine | DX: R30.0 Dysuria (principal); Z53.9 Procedure and treatment not carried out, unspecified reason ==

== ENCOUNTER → 2021-07-23 | Outpatient (REF) | payer MEDICARE, BC | LOC: M SFHCCLAY 13:06 | PROVIDERS: ATTEND Family Medicine | DX: R30.0 Dysuria (principal) ==

== ENCOUNTER → 2021-08-25 | Outpatient (CLI) | payer MEDICARE, BC | LOC: M WHC 12:52 | PROVIDERS: ATTEND Internal Medicine Gastroenterology | DX: K80.20 Calculus of gallbladder without cholecystitis without obstruction (principal); Q61.02 Congenital multiple renal cysts; R94.5 Abnormal results of liver function studies; K50.10 Crohn's disease of large intestine without complications; R07.9 Chest pain, unspecified; K21.9 Gastro-esophageal reflux disease without esophagitis; R14.0 Abdominal distension (gaseous); R11.0 Nausea ==

== ENCOUNTER → 2021-08-27 | Outpatient (REF) | payer MEDICARE, BC | LOC: M LAB REF 16:58 | PROVIDERS: ATTEND Internal Medicine Nephrology | DX: N18.31 Chronic kidney disease, stage 3a (principal); R82.81 Pyuria ==

== ENCOUNTER → 2021-09-22 | Outpatient (CLI) | payer MEDICARE, BC | LOC: M CLY 14:39 | PROVIDERS: ATTEND Physician Assistant | DX: S59.911A Unspecified injury of right forearm, initial encounter (principal); X58.XXXA Exposure to other specified factors, initial encounter; Y92.9 Unspecified place or not applicable; Y93.9 Activity, unspecified; Y99.9 Unspecified external cause status ==

== ENCOUNTER → 2021-09-30 | Outpatient (REF) | payer MEDICARE, BC ==
[2021-09-30 18:26] LABS: APPEARANCE, URINE HAZY (CLEAR); BACTERIA, URINE AUTO NEGATIVE (NEGATIVE); BILIRUBIN, URINE AUTO NEGATIVE (NEGATIVE); BLOOD, URINE BLOOD NEGATIVE (NEGATIVE); CALCIUM OXALATE CRYSTALS LARGE; COLOR, URINE YELLOW (YELLOW); GLUCOSE, URINE (UA) AUTO NEGATIVE (NEGATIVE); KETONE, URINE AUTO NEGATIVE (NEGATIVE); LEUKOCYTE ESTERASE, URINE AUTO TRACE (NEGATIVE); NITRITE, URINE AUTO NEGATIVE (NEGATIVE); PROTEIN, URINE AUTO NEGATIVE (NEGATIVE); RBC, URINE AUTO 2 /HPF (0-3); SPECIFIC GRAVITY URINE AUTO 1.014 (1.002-1.035); SQUAMOUS EPITHELIAL CELL UR AU 0 /HPF (0-6); UROBILINOGEN, URINE AUTO 0.2 mg/dL (0.0-2.0); WBC, URINE AUTO 7 /HPF (0-3)
== END ==
LOC: M SMT 16:52
PROVIDERS: ATTEND Urology
DX: N40.0 Benign prostatic hyperplasia without lower urinary tract symptoms (principal)

== ENCOUNTER → 2021-10-09 | Outpatient (REF) | payer MEDICARE, BC | LOC: M SFHCCLAY 13:04 | PROVIDERS: ATTEND Family Medicine | DX: N30.90 Cystitis, unspecified without hematuria (principal) ==

== ENCOUNTER → 2021-10-22 | Outpatient (REF) | payer MEDICARE, BC, OTHER | LOC: M SFHCCLAY 15:02 | PROVIDERS: ATTEND Physician Assistant | DX: R09.81 Nasal congestion (principal) ==

== ENCOUNTER → 2021-12-21 | Outpatient (REF) | payer MEDICARE, BC | LOC: M LABDRAWC 16:52 | PROVIDERS: ATTEND Nurse Practitioner Family | DX: E11.22 Type 2 diabetes mellitus with diabetic chronic kidney disease (principal) ==

== ENCOUNTER → 2021-12-24 | Outpatient (REF) | payer MEDICARE, BC | LOC: M SFHCPLAZ 08:55 | PROVIDERS: ATTEND Family Medicine | DX: N30.00 Acute cystitis without hematuria (principal) ==

== ENCOUNTER 2022-01-18 11:14 | Inpatient (IN) | payer MEDICARE, BC ==
[~2022-01-18] VITALS: Ht 180.3 cm; Wt 56.6 kg
[2022-01-18 13:15] LABS: BASO % 0.2 % (0.0-1.0); EOS # 0.6 10^3/uL (0.0-0.5); EOS % 11.3 % (0.0-3.0); HEMATOCRIT 33.3 % (42.0-52.0); HEMOGLOBIN 11.2 g/dl (13.5-17.5); LYMPH # 0.7 10^3/uL (1.5-5.0); LYMPH % 12.2 % (24.0-44.0); MEAN CORPUSCULAR HEMOGLOBIN 33.9 pg (27.0-33.0); MEAN CORPUSCULAR HGB CONC 33.6 g/dl (32.0-36.5); MEAN CORPUSCULAR VOLUME 100.9 fl (80.0-96.0); MONO # 0.7 10^3/uL (0.0-0.8); NEUTROPHILS # 3.6 10^3/uL (1.5-8.5); NEUTROPHILS % 63.8 % (36.0-66.0); PLATELET COUNT, AUTOMATED 110 10^3/uL (150-450); WHITE BLOOD COUNT 5.7 10^3/uL (4.0-10.0)
[2022-01-18 14:01] LABS: ALBUMIN 3.3 GM/DL (3.2-5.2); BILIRUBIN,DIRECT 0.3 MG/DL (0.0-0.2); BILIRUBIN,TOTAL 0.9 MG/DL (0.2-1.0); CALCIUM LEVEL 9.9 MG/DL (8.8-10.2); CREATININE FOR GFR 2.21 MG/DL (0.70-1.30); GLOMERULAR FILTRATION RATE 30.3 (>35); POTASSIUM SERUM 4.8 MEQ/L (3.5-5.1); TOTAL PROTEIN 5.5 GM/DL (6.4-8.2)
[2022-01-18] MEDS: GASTROGRAFIN SOLUTION 30ML PO SCH ×2 (14:19→15:00)
[2022-01-18] MEDS ORDERED: NS 500 ML IV ONE (16:35)
[2022-01-18] MEDS ORDERED: GLUCOSE 4GM CHEW TABLET PO PRN (17:15)
[2022-01-18] MEDS ORDERED: DEXTROSE 50% 50 ML SYRINGE IV PRN (17:15)
[2022-01-18] MEDS ORDERED: GLUCAGON INJ 1MG VIAL SC PRN (17:15)
[2022-01-18] MEDS: INSULIN LISPRO (NovoLOG) PER UNIT SC SCH ×2 (17:30→21:00)
[2022-01-18] MEDS: NS 1,000 ML IV SCH (18:10)
[2022-01-18] MEDS ORDERED: PANT40TA29 PO (19:03)
[2022-01-18] MEDS ORDERED: TAMS1CAP17 PO (19:03)
[2022-01-18] MEDS ORDERED: MIRA3350 PO (19:03)
[2022-01-18] MEDS ORDERED: COLA100C5 PO (19:03)
[2022-01-18] MEDS ORDERED: SITA50TAB PO (19:03)
[2022-01-18] MEDS ORDERED: ATOR40TA75 PO (19:03)
[2022-01-18] MEDS ORDERED: BACTDSTA PO (19:03)
[2022-01-18] MEDS ORDERED: FLUT1BLS8 INH (19:03)
[2022-01-18] MEDS ORDERED: EPLE25TA PO (19:03)
[2022-01-18] MEDS ORDERED: ALLO100T PO (19:03)
[2022-01-18] MEDS ORDERED: ASPI81TA26 PO (19:03)
[2022-01-18] MEDS ORDERED: RISATAB3 PO (19:03)
[2022-01-18] MEDS ORDERED: META28.32 PO (19:03)
[2022-01-18] MEDS ORDERED: HOME MED LIST COMPLETE! XX SCH (19:10)
[2022-01-18] MEDS ORDERED: MIRALAX *UNIT DOSE* 17GM PACKET PO PRN (19:15)
[2022-01-18] MEDS ORDERED: METAMUCIL (PSYLLIUM) PACKET PO PRN (19:15)
[2022-01-18 20:57] LABS: SODIUM,RANDOM URINE 74 MEQ/L; UREA NITROGEN RANDOM URINE 716 MG/DL
[2022-01-18 21:01] LABS: ERYTHROCYTE SEDIMENTATION RATE 23 mm/hr (0-20)
[2022-01-18 21:04] LABS: C REACTIVE PROTEIN QUANTITATIV 3.07 MG/DL (0.00-0.30); PERCENT SATURATION 10.6 % (19.7-50.0)
[2022-01-18] MEDS: TAMSULOSIN 0.4 MG CAP PO SCH (21:06)
[2022-01-18] MEDS: LACTOBACILLUS ACIDOPHILUS CAP (BACID) PO SCH (21:06)
[2022-01-18] MEDS: DOCUSATE SODIUM 100MG CAPSULE PO SCH (21:06)
[2022-01-18] MEDS: MULTIVITAMINS/MINERALS THERAP 1 TAB PO SCH (21:06)
[2022-01-18 22:52] VITALS: BP 144/68
[2022-01-18] MEDS: PROPRANOLOL 20 MG TAB PO SCH (22:56)
[2022-01-19 02:00] VITALS: BP 147/67
[2022-01-19 05:40] VITALS: BP 111/67
[2022-01-19 06:19] LABS: BASO % 0.4 % (0.0-1.0); EOS # 0.8 10^3/uL (0.0-0.5); EOS % 13.5 % (0.0-3.0); HEMATOCRIT 30.6 % (42.0-52.0); HEMOGLOBIN 10.2 g/dl (13.5-17.5); LYMPH # 0.8 10^3/uL (1.5-5.0); LYMPH % 14.1 % (24.0-44.0); MEAN CORPUSCULAR HEMOGLOBIN 33.7 pg (27.0-33.0); MEAN CORPUSCULAR HGB CONC 33.3 g/dl (32.0-36.5); MONO # 0.7 10^3/uL (0.0-0.8); MONO % 12.5 % (2.0-8.0); NEUTROPHILS # 3.3 10^3/uL (1.5-8.5); NEUTROPHILS % 59.1 % (36.0-66.0); PLATELET COUNT, AUTOMATED 105 10^3/uL (150-450); RED BLOOD COUNT 3.03 10^6/uL (4.30-6.10); WHITE BLOOD COUNT 5.6 10^3/uL (4.0-10.0)
[2022-01-19 06:54] LABS: ALBUMIN 3.1 GM/DL (3.2-5.2); CALCIUM LEVEL 9.5 MG/DL (8.8-10.2); CREATININE FOR GFR 1.98 MG/DL (0.70-1.30); GLOMERULAR FILTRATION RATE 34.5 (>35); POTASSIUM SERUM 4.4 MEQ/L (3.5-5.1)
[2022-01-19] MEDS: INSULIN LISPRO (NovoLOG) PER UNIT SC SCH ×4 (07:30→20:28)
[2022-01-19] MEDS ORDERED: NS 500 ML IV ONE (07:40)
[2022-01-19] MEDS: HEPARIN SOD (PORCINE) 5000UNITS/ML 1ML VIAL/SYRINGE SC SCH ×2 (08:17→20:39)
[2022-01-19] MEDS: LACTOBACILLUS ACIDOPHILUS CAP (BACID) PO SCH ×2 (08:17→20:38)
[2022-01-19] MEDS: ASPIRIN 81MG ENTERIC TABLET PO SCH (08:17)
[2022-01-19] MEDS: ATORVASTATIN 20 MG TAB PO SCH (08:18)
[2022-01-19] MEDS: PANTOPRAZOLE 40MG TAB (PROTONIX) PO SCH (08:20)
[2022-01-19] MEDS: PROPRANOLOL 20 MG TAB PO SCH ×2 (08:20→20:38)
[2022-01-19] MEDS: NS 1,000 ML IV SCH (08:26)
[2022-01-19] MEDS ORDERED: TAMSULOSIN 0.4 MG CAP PO SCH (09:00)
[2022-01-19 10:00] VITALS: BP 119/60
[2022-01-19 14:00] VITALS: BP 146/60
[2022-01-19 18:00] VITALS: BP 162/70
[2022-01-19] MEDS: TAMSULOSIN 0.4 MG CAP PO SCH (20:38)
[2022-01-19] MEDS: MULTIVITAMINS/MINERALS THERAP 1 TAB PO SCH (20:38)
[2022-01-19] MEDS: DOCUSATE SODIUM 100MG CAPSULE PO SCH (20:38)
[2022-01-19 20:39] VITALS: BP 162/71
[2022-01-20 03:42] LABS: BASO % 0.2 % (0.0-1.0); EOS # 0.7 10^3/uL (0.0-0.5); EOS % 13.8 % (0.0-3.0); HEMATOCRIT 29.3 % (42.0-52.0); LYMPH # 1.1 10^3/uL (1.5-5.0); LYMPH % 20.8 % (24.0-44.0); MEAN CORPUSCULAR HEMOGLOBIN 33.6 pg (27.0-33.0); MEAN CORPUSCULAR HGB CONC 34.1 g/dl (32.0-36.5); MEAN CORPUSCULAR VOLUME 98.3 fl (80.0-96.0); MONO # 0.6 10^3/uL (0.0-0.8); MONO % 11.7 % (2.0-8.0); NEUTROPHILS # 2.8 10^3/uL (1.5-8.5); NEUTROPHILS % 53.1 % (36.0-66.0); PLATELET COUNT, AUTOMATED 103 10^3/uL (150-450); RED BLOOD COUNT 2.98 10^6/uL (4.30-6.10); WHITE BLOOD COUNT 5.3 10^3/uL (4.0-10.0)
[2022-01-20 04:12] LABS: HEMOGLOBIN A1c 5.2 %
[2022-01-20 05:08] LABS: ALBUMIN 3.1 GM/DL (3.2-5.2); BILIRUBIN,TOTAL 0.8 MG/DL (0.2-1.0); CALCIUM LEVEL 9.1 MG/DL (8.8-10.2); CREATININE FOR GFR 1.86 MG/DL (0.70-1.30); POTASSIUM SERUM 4.4 MEQ/L (3.5-5.1); TOTAL PROTEIN 4.9 GM/DL (6.4-8.2)
[2022-01-20 06:00] VITALS: BP 163/64
[2022-01-20] MEDS: INSULIN LISPRO (NovoLOG) PER UNIT SC SCH ×2 (07:30→11:31)
[2022-01-20 08:57] VITALS: BP 153/72
[2022-01-20] MEDS: LACTOBACILLUS ACIDOPHILUS CAP (BACID) PO SCH (08:57)
[2022-01-20] MEDS: PROPRANOLOL 20 MG TAB PO SCH (08:57)
[2022-01-20] MEDS: ATORVASTATIN 20 MG TAB PO SCH (08:57)
[2022-01-20] MEDS: PANTOPRAZOLE 40MG TAB (PROTONIX) PO SCH (08:57)
[2022-01-20] MEDS: ASPIRIN 81MG ENTERIC TABLET PO SCH (08:58)
[2022-01-20] MEDS: HEPARIN SOD (PORCINE) 5000UNITS/ML 1ML VIAL/SYRINGE SC SCH (09:01)
[2022-01-20 10:00] VITALS: BP 166/66
[2022-01-20 14:00] VITALS: BP 164/66
== END 2022-01-20 16:54 | disposition home health service (06) | DRG 683 ==
LOC: M ED 11:14 → M ED INP 17:14 → ENRESERVTM 20:15 → ENRESERVDT 20:15 → M MSPAV 22:40
PROVIDERS: ADMIT Internal Medicine; ATTEND Internal Medicine
DX: N17.9 Acute kidney failure, unspecified (principal); I50.22 Chronic systolic (congestive) heart failure; I13.0 Hypertensive heart and chronic kidney disease with heart failure and stage 1 through stage 4 chronic kidney disease, or unspecified chronic kidney disease; K50.90 Crohn's disease, unspecified, without complications; E11.22 Type 2 diabetes mellitus with diabetic chronic kidney disease; N18.30 Chronic kidney disease, stage 3 unspecified; G20 Parkinson's disease; F03.90 Unspecified dementia, unspecified severity, without behavioral disturbance, psychotic disturbance, mood disturbance, and anxiety; E78.5 Hyperlipidemia, unspecified; I25.10 Atherosclerotic heart disease of native coronary artery without angina pectoris; Z95.5 Presence of coronary angioplasty implant and graft; K21.9 Gastro-esophageal reflux disease without esophagitis; J44.9 Chronic obstructive pulmonary disease, unspecified; Z86.73 Personal history of transient ischemic attack (TIA), and cerebral infarction without residual deficits; Z85.828 Personal history of other malignant neoplasm of skin; Z90.49 Acquired absence of other specified parts of digestive tract; Z87.891 Personal history of nicotine dependence; D69.6 Thrombocytopenia, unspecified; D53.9 Nutritional anemia, unspecified; M10.9 Gout, unspecified; R33.9 Retention of urine, unspecified; Z20.822 Contact with and (suspected) exposure to COVID-19; Z79.82 Long term (current) use of aspirin; Z79.899 Other long term (current) drug therapy; Z88.1 Allergy status to other antibiotic agents; Z88.8 Allergy status to other drugs, medicaments and biological substances; R63.4 Abnormal weight loss; N40.0 Benign prostatic hyperplasia without lower urinary tract symptoms

== ENCOUNTER → 2022-02-04 | Outpatient (REF) | payer MEDICARE, BC ==
[~2022-02-04] MED LIST changes: +ASPI81TA26 PO; +BACTDSTA PO; +EPLE25TA PO; +FLUT1BLS8 INH; +META28.32 PO; +PANT40TA29 PO; +RISATAB3 PO; +TAMS1CAP17 PO
[2022-02-04 17:43] LABS: BASO % 0.4 % (0.0-1.0); EOS # 0.5 10^3/uL (0.0-0.5); EOS % 6.8 % (0.0-3.0); HEMATOCRIT 35.5 % (42.0-52.0); HEMOGLOBIN 11.8 g/dl (13.5-17.5); LYMPH # 1.3 10^3/uL (1.5-5.0); LYMPH % 16.9 % (24.0-44.0); MEAN CORPUSCULAR HEMOGLOBIN 33.8 pg (27.0-33.0); MEAN CORPUSCULAR HGB CONC 33.2 g/dl (32.0-36.5); MEAN CORPUSCULAR VOLUME 101.7 fl (80.0-96.0); MONO # 0.7 10^3/uL (0.0-0.8); NEUTROPHILS # 5.1 10^3/uL (1.5-8.5); NEUTROPHILS % 66.5 % (36.0-66.0); PLATELET COUNT, AUTOMATED 168 10^3/uL (150-450); RED BLOOD COUNT 3.49 10^6/uL (4.30-6.10); WHITE BLOOD COUNT 7.7 10^3/uL (4.0-10.0)
[2022-02-04 18:34] LABS: ALBUMIN 3.5 GM/DL (3.2-5.2); CALCIUM LEVEL 9.5 MG/DL (8.8-10.2); CREATININE FOR GFR 1.56 MG/DL (0.70-1.30); CREATININE, URINE 79.2 MG/DL; FREE T4 1.33 NG/DL (0.76-1.46); GLOMERULAR FILTRATION RATE 45.4 (>35); MALB URINE SIEMENS 40.2 MG/L; MAU/CREAT RATIO 50.7 MCG/MG (0.0-30.0); POTASSIUM SERUM 4.3 MEQ/L (3.5-5.1); THYROID STIMULATING HORMONE 1.95 uIU/ML (0.358-3.740); TOTAL PROTEIN 5.7 GM/DL (6.4-8.2)
[2022-02-04 18:43] LABS: HEMOGLOBIN A1c 5.1 %
== END ==
LOC: M SFHCCLAY 06:56
PROVIDERS: ATTEND Family Medicine
DX: J44.9 Chronic obstructive pulmonary disease, unspecified (principal); I10 Essential (primary) hypertension; E11.9 Type 2 diabetes mellitus without complications; D61.818 Other pancytopenia

== ENCOUNTER → 2022-03-03 | Outpatient (REF) | payer MEDICARE, BC ==
[2022-03-03 18:14] LABS: WBC, URINE TNTC /hpf (0-3)
[2022-03-03 18:15] LABS: RBC, URINE NONE SEEN /hpf (0-3)
[2022-03-03 18:16] LABS: BACTERIA, URINE SMALL AMOUNT; CALCIUM OXALATE CRYSTALS,URINE SMALL AMOUNT /hpf; HYALINE CAST, URINE NONE SEEN /lpf (0-1); SQUAMOUS EPITHELIAL CELL URINE SMALL AMOUNT /hpf (SMALL AMT)
== END ==
LOC: M LAB REF 17:02
PROVIDERS: ATTEND Internal Medicine Nephrology
DX: R82.81 Pyuria (principal); D63.1 Anemia in chronic kidney disease; N18.9 Chronic kidney disease, unspecified

== ENCOUNTER → 2022-03-17 | Outpatient (REF) | payer MEDICARE, BC ==
[2022-03-17 17:34] LABS: APPEARANCE, URINE MANUAL HAZY (CLEAR); BILIRUBIN, URINE MANUAL NEGATIVE (NEGATIVE); BLOOD URINE MANUAL POSITIVE (NEGATIVE); COLOR, URINE MANUAL YELLOW (YELLOW); GLUCOSE, URINE (UA) MANUAL NEGATIVE (NEGATIVE); KETONE, URINE MANUAL NEGATIVE (NEGATIVE); LEUKOCYTE ESTERASE, URINE MAN POSITIVE (NEGATIVE); NITRITE, URINE MANUAL NEGATIVE (NEGATIVE); PROTEIN, URINE MANUAL NEGATIVE (NEGATIVE); SPECIFIC GRAVITY,URINE MANUAL 1.015 (1.002-1.035); UROBILINOGEN, URINE MANUAL NORMAL (NORMAL)
[2022-03-17 17:50] LABS: BACTERIA, URINE NONE SEEN; CALCIUM OXALATE CRYSTALS,URINE SMALL AMOUNT /hpf; HYALINE CAST, URINE NONE SEEN /lpf (0-1); SQUAMOUS EPITHELIAL CELL URINE NONE SEEN /hpf (SMALL AMT)
== END ==
LOC: M LAB REF 17:03
PROVIDERS: ATTEND Internal Medicine Nephrology
DX: R82.81 Pyuria (principal)